=== PATIENT | male | born 1960 | race Caucasian/White ===

== ENCOUNTER 2020-05-28 07:14 | Day surgery (SDC) | payer OTHER ==
[2020-05-25 12:35] LABS: Absolute Lymphocytes (CBC) 1.9 K/uL (0.7-4.9); Basophils % 1.1 % (0-1.3); Hematocrit 45.8 % (39.6-49.0); Lymphocytes % 28.4 % (15.3-44.8); MPV 9.1 fL (7.6-11.3); RBC Red Blood Cell Count 5.17 M/uL (4.33-5.43)
--- NOTE | 2020-05-25 12:38 | RAD REPORT ---
EXAM DESCRIPTION: Kristyn Raman And Zoie (2 Views)05/25/2020 12:25 pm CLINICAL HISTORY: Cardiac catheterization COMPARISON: 2019 FINDINGS: The lungs appear clear of acute infiltrate. The heart is borderline enlarged IMPRESSION: No acute abnormalities displayed
[2020-05-25 13:02] LABS: Potassium 4.4 mmol/L (3.5-5.1)
[2020-05-25 13:15] LABS: Protime INR 0.96
[2020-05-28] MEDS ORDERED: LIDOCAINE 1% MPF 30 ML VIAL ONE (07:24)
[2020-05-28] MEDS ORDERED: HEPA 1000U/500MLS 2,000 UNIT/1,000 ML BAG IV ONE (07:24)
--- OUTSIDE RECORDS SUMMARY | 2020-05-28 07:24 | XMS REPORT | Clinical Summary ---
:1960 Author Organization [facility] Address [address] [place] [address] Care Team Providers Name Role Phone Thompson Chadwick Primary Care Provider Allergies No Known Allergies Medications Medication Sig Dispensed Refills Start Date End Date Status atorvastatin Take 40 mg by 0 Act murphy (LIPITOR) 40 MG mouth daily. tablet metoprolol Take 25 mg by 0 Activ e (LOPRESSOR) 25 MG mouth 2 (two) tablet times daily. amLODIPine Take 10 mg by 0 Activ e (NORVASC) 10 MG mouth daily. tablet pantoprazole Take 40 mg by 0 Act murphy (PROTONIX) 40 MG mouth 2 (two) tablet times daily. gabapentin Take 600 mg 0 Active (NEURONTIN) 600 MG by mouth 3 tablet (three) times daily. baclofen (LIORESAL) Take 20 mg by 0 Active 20 MG tablet mouth 3 (three) times daily. meloxicam (MOBIC) Take 15 mg by 0 10/13/19 20 Discontinued 15 MG tablet mouth daily. aspirin 325 MG Take 1 tablet 30 tablet 0 10/14/2019 11/13/2019 tablet (325 mg total) by mouth daily for 30 days. meloxicam (MOBIC) Take 1 tablet 30 tablet 0 10/13/2019 020 15 MG tablet (15 mg total) by mouth daily for 30 days. Active Problems Problem Noted Date Arthritis of right knee 10/12/2019 Encounters Date Type Specialty Care Team Description 10/14/2019 Telephone Anesthesiology Rosie Carney Follow-up ELIAN Cole 10/12/2019 Surgery General Surgery Morales, ARTHROPLASTY ,KNEE Ernst FREDERICK Jr., MD 10/12/2019 Anesthesia Event General Surgery José Manuel Tan MD 10/12/2019 - Hospital Encounter General Internal Carmen, 10/13/2019 Medicine Ernst Fish Jr., MD 10/12/2019 Travel 10/04/2019 Hospital Encounter Pre-Admission Testing after 05/28/2019 Social History Tobacco Use Types Packs/Day Years Used Date Former Smoker Smokeless Tobacco: Never Used Comments: quit at age 29 Alcohol Use Drinks/Week oz/Week Comments No Alcohol Habits Answer Date Recorded How often do you have a drink containing alcohol? Never 10/04/2019 How many drinks containing alcohol do you have on a typical Not asked day when you are drinking? How often do you have six or more drinks on one occasion? No t asked Sex Assigned at Date Recorded Not on file Job Start Date Occupation Industry Not on file Not on file Not on file Travel History Travel Start Travel End No recent travel history available. Last Filed Vital Signs Vital Sign Reading Time Taken Blood Pressure 125/67 10/13/2019 8:30 AM OUT OF TOWN COLLECTION CLERK Pulse 79 10/13/2019 8:51 AM OUT OF TOWN COLLECTION CLERK Temperature 37.1 C (98.8 F) 10/13/2019 8:30 AM OUT OF TOWN COLLECTION CLERK Respiratory Rate 18 10/13/2019 10:45 AM OUT OF TOWN COLLECTION CLERK Oxygen Saturation 96% 10/13/2019 10:45 AM OUT OF TOWN COLLECTION CLERK Inhaled Oxygen Concentration 21% 10/13/2019 8:51 AM OUT OF TOWN COLLECTION CLERK Weight 105.7 kg (233 lb 0.4 oz) 10/12/2019 8:1 6 AM OUT OF TOWN COLLECTION CLERK Height 175.3 cm (5' 9") 10/12/2019 8:16 AM OUT OF TOWN COLLECTION CLERK Body Mass Index 34.41 10/12/2019 8:16 AM OUT OF TOWN COLLECTION CLERK Plan of Treatment Not on file Implants Implanted Type Area Diabetes Nurse Device Shelf Model / Identifier Expiration Serial / Date Lot Jalil Bn Palacos R+G-40 G [id number] - [id number] IMPLANTS Right: HER AEUS:HERAEUS 02/01/2022 [id number] / Implanted: Qty: 2 on 10/12/2019 by Ernst Morales MD Knee KULZER / [id number] Tib Cemented Stem 5d Sz G R [id number] - [id number] TOTAL JOINT Right: HORACIO:HORACIO 05/04/2029 [id number] / Implanted: Qty: 1 on 10/12/2019 by Ernst Morales Jr., MD CONSTRUCT Knee US / [id number] Fem Cemented Sz 10 R [id number] - [id number] TOTAL JOINT Right: HORACIO:HORACIO 10/04/2028 [id number] / Implanted: Qty: 1 on 10/12/2019 by Ernst Morales Jr., MD CONSTRUCT Knee US / [id number] Ext Stem Psn Str Hyb 14x30 Mm [id number] - [id number] TOTAL JOINT Right: HORACIO:HORACIO 09/03/2029 [id number] / Implanted: Qty: 1 on 10/12/2019 by Ernst Morales Jr., MD CONSTRUCT Knee US / [id number] Persona [employer] 9flats Knee System Hig hly Crosslinked Polyethylene Articular Surface Fixed Bearing Constrained Posterior Stabilized Right 10mm Height Right: Horacio 01/02/2023 [id number] / Implanted: Qty: 1 on 10/12/2019 by Ernst Morales Jr., MD Knee / [id number] Procedures Procedure Name Priority Date/Time Associated Diagnosis Comme nts RHYTHM STRIP - SCAN 10/17/2019 8:32 AM OUT OF TOWN COLLECTION CLERK TRANSFUSION SERVICE 10/13/2019 6:03 REPORT - SCAN PM OUT OF TOWN COLLECTION CLERK POCT-GLUCOSE METER Routine 10/13/2019 7:11 Resul ts for this AM OUT OF TOWN COLLECTION CLERK procedure are i n the results section. HEMOGLOBIN AND Routine 10/13/2019 4:59 Results f or this HEMATOCRIT AM OUT OF TOWN COLLECTION CLERK procedure are i n the results section. BASIC METABOLIC Routine 10/13/2019 4:59 Results for this PANEL (7) AM OUT OF TOWN COLLECTION CLERK procedure are i n the results section. POCT-GLUCOSE METER Routine 10/12/2019 9:00 Resul ts for this PM OUT OF TOWN COLLECTION CLERK procedure are i n the results section. XR KNEE RIGHT 1 OR 2 STAT 10/12/2019 4:17 Res ults for this VIEWS PM OUT OF TOWN COLLECTION CLERK procedure are i n the results section. ARTHROPLASTY,KNEE 10/12/2019 2:45 Osteoarthritis of UNILATERAL PM OUT OF TOWN COLLECTION CLERK right knee, unspecified osteoarthritis type Case Notes 2 HRS Special Needs (HORACIO, SPINAL WITH PERIPHE RAL NERVE BLOCK) TISSUE EXAM AP Routine 10/12/2019 2:40 PM OUT OF TOWN COLLECTION CLERK Resu lts for this procedure are i n the results section . ANESTHESIA PERIPHERAL Routine 10/12/2019 1:26 PM OUT OF TOWN COLLECTION CLERK Results for this BLOCK procedure are i n the results section . ANESTHESIA SPINAL BLOCK Routine 10/12/2019 1:25 PM OUT OF TOWN COLLECTION CLERK Results for this procedure are i n the results section . ABORH, MANUAL Routine 10/12/2019 10:58 AM OUT OF TOWN COLLECTION CLERK Res ults for this procedure are i n the results section . TYPE AND SCREEN, Routine 10/12/2019 10:58 AM OUT OF TOWN COLLECTION CLERK Results for this AUTOMATED procedure are i n the results section . after 05/28/2019 Results RHYTHM STRIP - SCAN (10/17/2019 8:32 AM OUT OF TOWN COLLECTION CLERK) Narrative Performed At This result has an attachment that is no t available. TRANSFUSION SERVICE REPORT - SCAN (10/13/2019 6:03 PM OUT OF TOWN COLLECTION CLERK) Narrative Performed At This result has an attachment that is no t available. POC-Glucose meter (10/13/2019 7:11 AM OUT OF TOWN COLLECTION CLERK)Only the most recent of2 results within the time period is included. POC-Glucose Meter 145 (H)Comment: : TESTED 70 - 110 mg/dL [facility] [address] [facility] [id number]: Metalsmith Helper/Administrative Intern ID = [id number] for Jennifer Don Specimen Blood Performing Organization Address [facility]/Zipcode Phone Number [facility] [address] [place], [place] [phone] CENTER Hemoglobin and hematocrit (10/13/2019 4:59 AM OUT OF TOWN COLLECTION CLERK) Hemoglobin 12.1 (L) 13.7 - 17.5 GM/DL [facility] Hematocrit 36.7 (L) 40.1 - 51.0 % [facility] Specimen Blood Performing Organization Address City/[facility]/Zipcode Phone Number [facility] [address] [place] [address] Basic Metabolic Panel (10/13/2019 4:59 AM OUT OF TOWN COLLECTION CLERK) Sodium 138 136 - 145 meq/L [facility] Potassium 5.0Comment: Specimen slightly 3.5 - 5.1 meq/L CH I [facility] - hemolyzed DEE Chloride 105 98 - 107 meq/L [facility] CO2 24 22 - 29 meq/L [facility] BUN 15 7 - 21 mg/dL [facility] Creatinine 1.15Comment: Specimen 0.57 - 1.25 mg/dL [facility] - slightly hemolyzed DEE Glucose 119 (H) 70 - 105 mg/dL [facility] Calcium 8.5 8.4 - 10.2 mg/dL [facility] EGFR 65Comment: ESTIMATED GFR IS mL/min/1.73 sq m [facility] - NOT ACCURATE CREATININE [facility] CLEARANCE IN PREDICTING GLOMERULAR FILTRATION RATE. ESTIMATED GFR IS NOT APPLICABLE FOR DIALYSIS PATIENTS. Specimen Blood Performing Organization Address City/State/Zipcode Phone Number [facility] [address] [place] [address] XR knee 1 or 2 views right (10/12/2019 4:17 PM OUT OF TOWN COLLECTION CLERK) Specimen Narrative Performed At FINAL REPORT [facility] COMPARISON: None. FINDINGS: 2 views of the right knee are submitted. Patient is presumably status post recent right knee replacement. There is anatomic alignment of the surgical prost hesis. There is postoperative gas in the surrounding soft tissues . Signed: Satya Huff MD Report Verified Date/Time:10/12/2019 16:44:57 Reading Location: [facility] Room Procedure Note Interface, External Ris In - 10/12/2019 4:47 PM OUT OF TOWN COLLECTION CLERK FINAL REPORT COMPARISON: None. FINDINGS: 2 views of the right knee are submitted. Patient is presumably status post recent right knee replacement. There is anatomic alignment of the surgical prost hesis. There is postoperative gas in the surrounding soft tissues . Signed: Satya Huff MD Report Verified Date/Time: 10/12/2019 1 6:44:57 Reading Location: [facility] Room Performing Organization Address City/[facility]/Zipcode Phone Number GE RIS Tissue Exam (10/12/2019 2:40 PM OUT OF TOWN COLLECTION CLERK) Case Report Surgical Pathology Report Case: [id number] [facility] Authorizing Provider:Ernst Mariee Collected: 10/12/2019 1440 [facility] Abe Cuellar MD Ordering Location: [facility] ORReceived:10/13/2019 0810 Perioperative Services Pathologist: Sabi John MD Specimen:Condyle,Rig ht Knee DIAGNOSIS CONDYLES, RIGHT KNEE, ARTHROPLASTY: [facility] - DEGENERATIVE CHANGES CONSISTENT WITH OSTEOA RTHRITIS [facility] - SYNOVIUM WITH REACTIVE CHANGES Signing Pathologist Direct Phone Line: CPT Code(s) 22428, 36448 [facility] ER CLINICAL HISTORY Preop diagnosis: [facility] osteoarthritis or right [facility] knee, unspecified osteoarthritis type SPECIMEN SOURCE Condyle right knee [facility] DESCRIPTION Received in formalin labeled with the patient's name, accession number and "condyle, right knee" are multiple jones-yellow bone and soft tissue fragments that range from 3.0 to 7.8 cm in greatest dimensi [facility] on. The articular surface is smooth to finely granular, focally erythematous and displays multiple peripheral osteophytes that measure up to 2.0 cm in greatest dimension. The cut surface is jones-yellow, [facility] trabeculated and firm with c ortical bone measuring up to 0.2 cm thick. Ui Ux Engineer sections are submitted as A1-A3 following decalcification. PA/pl MICROSCOPIC DESCRIPTION Performed. [facility] ER Specimen Tissue - Condyle,Right Knee Performing Organization Address City/[facility]/Zipcode Phone Number [facility] [address] [place] [address] CENTER ANESTHESIA PERIPHERAL BLOCK (10/12/2019 1:26 PM OUT OF TOWN COLLECTION CLERK) Narrative Performed At Patricia Ortiz MD 0201:27 PM Peripheral Block Patient location during procedure: pre-p rocedure Start time: 10/12/2019 1:19 PM End time: 10/12/2019 1:23 PM Procedure Indication: procedure for pain, at surgeon's request and post-op pain management Preanesthetic Checklist Completed: patient identified, pre-op ev aluation, timeout performed, IV checked, risks and benefits discussed, m onitors and equipment checked, anesthesia consent given, prep site dry prior to draping and maximum sterile barriers were used: cap, mask, sterile gown, s terile gloves, and large sterile sheet Staffing Anesthesiologist: Wil Cota MD Other anesthesia staff: Patricia Ortiz MD Prep Prep: chlorhexidine gluconate and isopro pyl alcohol Procedures: sterile gloves, surgical mask, surgical kebede t, sterile technique and prep and sterile drape applied Peripheral Nerve Block Patient position: supine Patient monitoring: EKG, HR, BP and SpO2 Laterality: right Block type: adductor canal Injection technique: catheter ultrasound guided - in plane, prescan was completed pr ior to procedure and needle tip was visualized throughout the entire procedure ultrasound image saved Block Dose: ropivicaine and catheter Infiltration strength: 0.5 % Dose: 30 mL Needle Needle type: over the needle catheter Needle gauge: 18 G Needle length: 75. Needle Localization:US guided Hydrodissection? yesCatheter tunneled Dressing: Occlusive dressing applied in sterile fashion and Dermabond applied at the catheter insertion site Assessment Injection assessment: incremental inject ion and negative aspiration for heme LOC: Sedated with meaningful contact supplemental oxygen used.no evidence of intravascular injection and no heart rate changeno paresthesia patient had no immediate complications and patient ananda erated the procedure well Additional Notes Dr. Cota present throughout procedure Procedure Note Patricia Ortiz MD - 10/12/2019 1:26 PM OUT OF TOWN COLLECTION CLERK Peripheral Block Patient location during procedure: pre-p rocedure Start time: 10/12/2019 1:19 PM End time: 10/12/2019 1:23 PM Procedure Indication: procedure for pain , at surgeon's request and post-op pain management Preanesthetic Checklist Completed: patient identified, pre-op ev aluation, timeout performed, IV checked, risks and benefits discussed, monitors and equipment checked, anesthesia consent given, prep site dry prior to draping and maximum sterile barriers were used: cap, mask, s terile gown, sterile gloves, and large sterile sheet Staffing Anesthesiologist: Wil Cota MD Other anesthesia staff: Patricia Ortiz MD Prep Prep: chlorhexidine gluconate and isopro pyl alcohol Procedures: sterile gloves, surgical mas k, surgical hat, sterile technique and prep and sterile drape applied Peripheral Nerve Block Patient position: supine Patient monitoring: EKG, HR, BP and SpO2 Laterality: right Block type: adductor canal Injection technique: catheter ultrasound guided - in plane, prescan wa s completed prior to procedure and needle tip was visualized throughout the entire procedure ultrasound image saved Block Dose: ropivicaine and catheter Infiltration strength: 0.5 % Dose: 30 mL Needle Needle type: over the needle catheter Needle gauge: 18 G Needle length: 75. Needle Localization: US guided Hydrodissection? yesCatheter tunneled Dressing: Occlusive dressing applied in sterile fashion and Dermabond applied at the catheter insertion site Assessment Injection assessment: incremental inject ion and negative aspiration for heme LOC: Sedated with meaningful contact supplemental oxygen used.no evidence of intravascular injection and no heart rate changeno paresthesia patient had no immediate complications a nd patient tolerated the procedure well Additional Notes Dr. Cota present throughout procedur e ANESTHESIA SPINAL BLOCK (10/12/2019 1:25 PM OUT OF TOWN COLLECTION CLERK) Narrative Performed At Patricia Ortiz MD 0201:27 PM Spinal Block Patient location during procedure: pre-p rocedure Start time: 10/12/2019 1:10 PM End time: 10/12/2019 1:17 PM Staffing Anesthesiologist: Wil Cota MD Other anesthesia staff: Patricia Ortiz MD Preanesthetic Checklist Completed: patient identified, pre-op ev aluation, timeout performed, IV checked, risks and benefits discussed, m onitors and equipment checked, anesthesia consent given, prep site dry prior to draping and maximum sterile barriers were used: cap, mask, sterile gown, s terile gloves, and large sterile sheet Prep Prep: Betadine Procedures: sterile gloves, surgical mask, surgical kebede t, sterile technique and prep and sterile drape applied Spinal Block Patient position: sitting Patient monitoring: HR, BP, SpO2 and EKG Approach: midline Pictures are available Level:L2-3 Injection technique: single-shot landmark technique and landmark techniqu e Needle Needle type: pencil-tip Needle gauge: 25 G Needle Length: 9 cm Used introducer Assessment Events: barbotage patient tolerated the procedure well and patient had no immediate complications Additional Notes Dr. Cota present throughout procedur e Procedure Note Patricia Ortiz MD - 10/12/2019 1:25 PM OUT OF TOWN COLLECTION CLERK Spinal Block Patient location during procedure: pre-p rocedure Start time: 10/12/2019 1:10 PM End time: 10/12/2019 1:17 PM Staffing Anesthesiologist: Wil Cota MD Other anesthesia staff: Patricia Ortiz MD Preanesthetic Checklist Completed: patient identified, pre-op ev aluation, timeout performed, IV checked, risks and benefits discussed, monitors and equipment checked, anesthesia consent given, prep site dry prior to draping and maximum sterile barriers were used: cap, mask, s terile gown, sterile gloves, and large sterile sheet Prep Prep: Betadine Procedures: sterile gloves, surgical mas k, surgical hat, sterile technique and prep and sterile drape applied Spinal Block Patient position: sitting Patient monitoring: HR, BP, SpO2 and EKG Approach: midline Pictures are available Level: L2-3 Injection technique: single-shot landmark technique and landmark techniqu e Needle Needle type: pencil-tip Needle gauge: 25 G Needle Length: 9 cm Used introducer Assessment Events: barbotage patient tolerated the procedure well and patient had no immediate complications Additional Notes Dr. Cota present throughout procedur e Type and screen, automated (10/12/2019 10:58 AM OUT OF TOWN COLLECTION CLERK) Ab Scrn NEGATIVEComment: done on echo [facility] I [facility] Specimen Blood Performing Organization Address City/[facility] Phone Number [address] [address] ABORH, manual (10/12/2019 10:58 AM OUT OF TOWN COLLECTION CLERK) ABO Grouping O [facility] Rh Factor POS [facility] Specimen Blood Performing Organization Address City/[facility]/Zipcode Phone Number [address] [place] [address] after 05/28/2019 Insurance Payer Benefit Plan / Group Subscriber ID Type Phone A ddress [employer] xxxxxxxxx Maps Contracted Advance Directives For more information, please contact:[facility] [place], [place] [phone] Code Status Date Activated Date Inactivated Comments Full Code 10/12/2019 4:26 PM 10/13/2019 2:23 PM This code status was determined by: Patient Full Code 10/12/2019 10:27 AM 10/12/2019 4:26 PM This code status was determined by: Patient
[2020-05-28] MEDS ORDERED: NA CHLORIDE 0.9% 500 ML ONE ×2 (07:25→09:40)
--- OUTSIDE RECORDS SUMMARY | 2020-05-28 07:25 | XMS REPORT | Continuity of Care Document ---
:1960 Author Organization [facility] t Address [address] [place] [address] Care Team Providers Name Role Phone Thompson Chadwick Primary Care Physician Carmen ARIAS Attending Clinician Rommel PLUMMER, Douglas Attending Clinician LIS GOYAL Attending Clinician Unavailable Carmen ARIAS, Lis Attending Clinician Antonino Tan MD Attending Clinician LIS GOYAL Admitting Clinician Unavailable Payers Payer Name Policy Type Policy Number Effective Expiration Source Date Date CIGNA xxxxxxxxx [facility] ALL[facility]xMaps Center Contracted Problems Condition Condition Condition Status Onset Resolution Last Treating Co mments Source Name Details Category Date Date Treatment Clinician Date Arthritis Arthritis Disease Active [facility] right [facility] - knee knee 00:00: Medical 00 Center Allergies, Adverse Reactions, Alerts This patient has no known allergies or adverse reactions. Social History Social Habit Start Date Stop Date Quantity Comments Source History [facility] St[facility] Dr[facility] Medica l Center [facility] Binge Medical Christopher ter Sex Assigned At [facility] History SDOH 2019-10-04 2019-10-[address] [facility] Alcohol Frequency 00:00:00 00:00:00 [facility] Tobacco Comment 2019-10-04 2019-10-04 [facility] age 29 [facility] Smoking Status Start Date Stop Date Source Former smoker 2019-10-13 00:00:00 2019-10-13 00:00:[address] [facility] Medications Ordered Filled Start Stop Current Ordering Indication Dosage Frequency Signature Comments Components Source Medication Medication Date Date Medication? Clinician (SIG) Name Name aspirin 325 No 325mg QD Take [address] [facility] tablet 10-14 tablet [facility] - 00:00: 23:59 (325 mg Medical 00 :00 total) by Center mouth daily for 30 days. meloxicam No 15mg QD Take [address] (MOBIC) 15 10-13 by mouth Luke s - MG tablet 12:04: 00:00 daily. Medic al 18 :00 [place] meloxicam No 15mg QD Take 1 [facility] (MOBIC) 15 10-13 tablet (15 Sunitha kes - MG tablet 00:00: 23:59 mg total) Me dical 00 :00 by mouth Center daily for 30 days. amLODIPine 2018-10 Yes 10mg QD Take [address] (NORVASC) 2-31 by mouth [facility] - 10 MG 12:49: daily. Medical tablet 14 [place] pantoprazol 2018-10 Yes 40mg Q.5D Take [address] e 2-31 by mouth 2 [facility] - (PROTONIX) 12:49: (two) Medica l 40 MG 14 times Center tablet daily. gabapentin 2018-10 Yes 600mg Q.[id number] Take [address] (NEURONTIN) 2-31 [id number] mg by L ukes - 600 MG 12:49: 3D mouth 3 Medical tablet 14 (three) Center times daily. baclofen 2018-10 Yes 20mg Q.[id number] Take [address] (LIORESAL) 2-31 [id number] by mouth 3 [facility] - 20 MG 12:49: 3D (three) Medical tablet 14 times Center daily. atorvastati 2018-10 Yes 40mg QD Take [address] [facility] (LIPITOR) 2-31 by mouth Luke s - 40 MG 12:49: daily. Medical tablet 13 Center metoprolol 2018-10 Yes 25mg Q.5D Take [address] (LOPRESSOR) 2-31 by mouth 2 Sunitha kes - 25 MG 12:49: (two) Medical tablet 13 times Center daily. Vital Signs Vital Name Observation Time Observation Value Comments Source Respiratory rate 2019-10-13 10:45:00 18 /min [facility] Oxygen saturation in 2019-10-13 10:45:00 96 /min [facility] Arterial blood by Medical Ce nter Pulse oximetry Heart rate 2019-10-13 08:51:00 79 /min [facility] Systolic blood 2019-10-13 08:30:00 125 mm[Hg] [facility] Diastolic blood 2019-10-13 08:30:00 67 mm[Hg] [facility] Body temperature 2019-10-13 08:30:00 37.11 Ninoska [facility] Body height 2019-10-12 08:16:00 175.3 cm [facility] Body weight Measured 2019-10-12 08:16:00 105.7 kg [facility] BMI 2019-10-12 08:16:00 34.41 kg/m2 [facility] Procedures Procedure Date / Time Performed Performing Clinician [facility] e RHYTHM STRIP - SCAN 2019-10-17 08:32:12 Provider, Default [facility] TRANSFUSION SERVICE 2019-10-13 18:03:35 Provider, Default [facility] REPORT SCAN [facility] POCT-GLUCOSE METER 2019-10-13 07:11:00 Ernst Goyal [facility] BASIC METABOLIC PANEL 2019-10-13 04:59:00 KrauseDottie schmidt [facility] (7) [facility] HEMOGLOBIN AND 2019-10-13 04:59:00 Dottie Krause [facility] HEMATOCRIT [facility] POCT-GLUCOSE METER 2019-10-12 21:00:00 Ernst Goyal [facility] XR KNEE RIGHT 1 OR 2 2019-10-12 16:17:[address] [facility] ARTHROPLASTY,KNEE 2019-10-12 14:45:00 Ernst Goyal [facility] TISSUE EXAM 2019-10-12 14:40:00 Ernst Goyal [facility] ANESTHESIA PERIPHERAL 2019-10-12 13:26:[address] [facility] ANESTHESIA SPINAL BLOCK 2019-10-12 13:25:43 Patricia Ortiz [facility] ABORH, MANUAL 2019-10-12 10:58:00 Keith Mcbride [facility] Encounters Start End Encounter Admission Attending Care Care Encounter Source Date/Time Date/Time Type Type Clinicians Facility Department ID 2019-12-05 2019-12-05 Office KARON Goyal [id number] 12:08:28 12:18:28 Visit Ernst AMBULATOR 350.1.13.21 Y [id number] [id number] 600 2019-10-27 2019-10-27 Office KARON Goyal [id number] 10:26:14 11:26:31 Visit Ernst AMBULATOR 350.1.13.21 Y 0.2.7.2.686 [id number] 600 2019-07-04 2019-07-04 Office KARON Goyal [id number] 12:43:07 14:30:53 Visit Ernst AMBULATOR 350.1.13.21 Y 0.2.7.2.686 [id number] Results Test Description Test Time Test Comments Results Result Comments Source Tissue Exam 2019-10-19 13:46:00 Test Item Value Reference Range Interpretation Comme nts Case Report (test code = 104) Surgical Pathology Report Case: [id number] Authorizing Provider: Ernst Goyal Collected: 10/12/2019 1440 Lis Cuellar MD Ordering Location: [facility] OR Received: 10/13/2019 08 Perioperative Services Pathologist: Sabi John MD Specimen: Condyle,Right Knee DIAGNOSIS (test code = 3220) c7exjOXrRDGfo8thNBZyvLLoIyWcNtRwEdCyCf pc xIDyOIoglbSjVFbdm9WzI6JbXdAlQTrmmwUnJRBl DvygdhjgNZDhBSD3gpSiFDQhAHweSGGbKZigKc3e uHJmpPpwEyKgCLZix3ncbgDVlefygZe5aDvnX81y c0R0PpbyT8qzPSKwNLYgK2CxEN9cVJWrQvk1MML3 RJD3ZJYcGAHkA9ReDW0vQSVngMNtZAy2t1cnlAli MWZwOQU7e5zoHZtfkfLsOY8unq8spWo1x8lmysZj ERJaRTUfyLWLSFBmG5YdcRkzFe1wpYy8eJrjHgbv SEE4Aau5QB5dqp12qss4rZwnXGAitqogUfA5OVwb STSzrgeeXHw1HZqsILJcbOrgEZxcVFLvyzktYWtk WKLlpJjsANslVURtYaydAAsgWKLcIEQ0BTbfg014 TVZ2PPxzt5qeo0zgsPApFiz8HZCvSvAdRqtiUKah p0Vxp8ouYHUkqk5xOYJ3tBQlnAjdu5T0pOXrGUOp rPTnpmSiOXLeVhX9SMevPA4qah66MAMwUKT1hg0a jOMssAiwljNccARoDUmmI5HhMIJpt781OMQfM8Dp LCFel0I9zlEgVwDpDYRcgGK0qcI2AVLkZHt4oFPw kiG6lnUxlAPmJ4fkxS76RnOrfOKcA9RneP23SeRq zJWnY7RplP89VwNcbOFcN6ClpY29PvMpbRWaJVFq dRWzWa5mpASfzLVss0WhzRPnSHyhQ01hl417KBFk pjSeH4pyrWQufduguNOykutkKIwhzpN3NUGyEOMw YWluXGYwXGZzMjBcbGFuZzEwMzNcaGljaFxmMFxk YkDeMAHdUXzbG0rzVvYcLnXbZVOTX54DYTfZNpud TmlTJALhY23PAZvgWDVCZZWQGVmUE8BDBywhLOVe XRKhLDMJQUuPAsIIYGXEXoVbG7gVLdfKHsOTR92B LJUYPK1YDXwMMXquJ1HEYR5FCmZXTcuCDISggQGn FGNgRV2hW4hHT5PDDH2uE6bFGVRFUXFSPNhBSKRN IUVFY1SWZAOtvsnkYJL4x3qrjAHePTAvrAPqTSDj LYudilHjCXSzQtavznnyAZBlEUJ1kxWnYZLePRuk QHEiGVkdXe4vvCQcnQqvBkNkCHQyn7fidbNYnhcl dZm1q3qbUIWzZjX1jLVeYBqlL0nzqtOenOJpOSWh QOi2uV50LLYibF6ukYEzOGhnvfYlFvV0JVpySVPn QvY1NBIszCZpAIUmP8tnUJToAZroOTMjGFscgTPn VWG1qYysp2G5zDGsqKYadWjcZnLgRzKyBdSEl8Ua WVk2yQgnX9ObAQIyBgL3cPOpSRTkUJecAMJyYTLu cdL7cS49DZfrvmG7kEDdc2Pfi97nm483nE6ufKYg HGM4LHVyFBPmqHMaLQUnLTV3CFGilZOvB0neDIQa ZC1hlbphMTxxUGhtBFKsfWW2VXCddQGqI7EhCTRq SEokBRYyfan2IiSdYl7vcGVmzKinMPeql1iet9cl pPByCkr6UPTlTqEoKfuhSDnsf2Njr1pxBRTsvd7d RAF5zOIpySkoc8U0mBBzLDQkgLKfHSOgWL6eaGCk JSPayF7grrkmXXTgUjHmvhahCAQjaOtpzuZuOz4x lErwQHZ5JYevQ3ctzG3iVsD4UErnL5zncX9eDPb3 AZorRKIphMX0mmX0CKRlxBLbE5NwiJ8jPHTkTX3k twd2e7dhMRC9VTblCCKxMlJ7lzT8JBXkmLQwOYFz hJleINavj171ULE4PbIhTCXoc0UlD6ZfiIutY68f pXjxF97oKWMfuQjisQ9kzXlvbV6wCsMoDzOzQQpg yBzyLA8jSKOnE5hamVLoXWPpOKMvM7nmJqIrlH0f kSlqHQbbtqHoIWJlPhe6AWAgqVDfAIXaQhz7SBHn DSDaQ13aybaxPIB2zF5jd2eod9OdHXypSSN4CURv e32vBEftlgS8IGdpDy1cOYRkJYL2HIiqQBK1uE== CPT Code(s) (test code = 3357) j6bqiTLcVQWkjDXbRaMnXBNaKTFfa4mmCPXp bGFu FaWrQaLgKbSqQmyryBCxYFUkEiGdy8cih405uXAv t6jgIIUdXuP2yCZzWYPqfCMzZ973v6ixa0nhcfDa kKG3QMOpKEB5GFnateXjeqJ9VAnivKXdZeY9VTci eqPgJYphuvMqtwNuQnf3LSBoQ000LRP0xHfyp2gw NAO7IEXnMOPvKdBkPm9mtCKtY246LTLyIZMTFTGc yFa6VUZmrpCkuyCidHFOh661Z486v5pqVLHracKm sNfAqhscp3ruP728LWEmrNArfoBcBvIsQHNkaXLp dIH4XLMyTR9oukhpMhKnQT6mrlmvXrCfDC4vqyt3 LkApWU1rvaxeXeCvAXszMEMvbvmlCLXng5Ukwdwh KD7lV4Qpp6I5iZ7ruWBcPXCazSZqQwYtVBAdxc1n aADeLFpgj3RrERV1eaN0eKBwdELkXDBhWB74Qjtc w3RcXmyoHUH3QOJldzUip7Bnn4krWeNnboKpE3hn X8BsIJTnKTSwMXYnTwOfhrOla4Kfa6FraIAsxPu2 l0ssHIUyAWRexMywu1ddFIA1CKEsD2Q8kSIca0ps NSpaOCUptUL2bzurCZcaVZOhydK3iubzBInySPFg wUE3ihmxDJhwNILgYsD4wrdgTBpqJAYhUAT2BYzj c242NTW7KFanSvaxDWvqLOLybvAtqeZifSxlTCYx PAXgLCaxHYRzLXkkBARlCLUbTbIqdDoalUmmsT4i YhVoJaTsAPozWX1kCDHwM6pnbNYlDPGbMGMsN7yv MkNxcP6uwPgdJGyraiNzFJt7FfI1DCB2HPTuWGzg YXJ9 CLINICAL HISTORY (test code = 3356) m9aifEIpUKLntDEyZgDcIHJxFGOum0z cZGVmbGFu CeCxEcJqHiOvCsjpdSIlNUInBkCuk4imk915kECg v5uzOGFwCtH2zLZuTIDkgBTlX106XORjYPvgp4dw n5OzFNLuaJArw4O1FYJLfocjaUs9qAxqZ16us2O9 PkztY1djFMGyZHpcZAIgSFklhDRmDSL4LIKiGQX7 ZAlofiLielQ1BOhhdEAxUnD2NZf6o8xixQaaHRIk FRR9d4swQVeswuSqDA1nzw1fwYx0s3devkKxHPHu ITVzlNRSAYPlT2QzzRjmYx6ciOz3oMyrFqjgZOY0 Wdq0WZ1wlh45iea3tKevLXWzxrvoUtG9IRkoPZLx wghtDHu8ZNrkCGYvxIiwEEpaVOLmjlnfLKwqXSMe fEhtHWogZZRvGmwaCRtvNHNkXZJ3APwoj296SQZ0 HKbsc7jkm6vpsLQzCbu9HHAiKdYeXmexMCnrf3Kf c7lhGCZeud2zKJG5vDNgnQaks1N7uTTfHZZldRTs adDlPIXeOrP5YLcxEH2wjl98LQKbZDQ0ho0kzDNw yUijxlTqoFXfUGrfJ8SxKXXde409WWZxG1WjEGKa s9R0cbJwIbOhAQBlfVE9mkH3AWWsDPk8aPMgopW6 hoMszOFlE0dnrG47KhVxhDQuH8KxkN81OcPwuKNz M6IznH25OiUfcGNuT5ArzS78DoKusDPhCFZmfCNb Jy0ijBPeoPOue3PsaVVrOBnrF72xo963LUZfldAo S1dnjMPdauxktFYerlweNLarkqCaJUMfEUYiGMrf LYIiGPZaAfYdxBahtI9zRuHfJsZnBBBTlzPnqGHn cHHlfu5bjSF0GGPrdIsmnE2tRrRhEkAzIKUpq6Ex y0AtgWjoiGUmo1rfwYCylevhSNvqfpAtTVUhdiMn rGjzyZCqtxUnMXY1jtQmSWJrSajsYCSrjKoyoJ1h YmPpCiXgDTCmw2Tdi9KsaBbqdLKee8lnkTPtfjyu XHvvztCnPIY3bJFnFKBdfm1= SPECIMEN SOURCE (test code = 3377) c2axsZIlKJOvrYWxNjYqLTCqGXXsy4qk ZGVmbGFu TqIrSzOhUrLxXkbgoWWmKQKbRpAqx5thn778iQDe o5coITKzIxL2xIQsTXOpuYApV017h4hxo5ccmeMl bVH7EHNbFZX0VHqncpBsugT2WWaxcBNwGbT2ZNab ybOoPOiamlBkmrQhLne7CDEbL569QIU4vUdge0ds LMU6RMGcXWBgVzTqPz4rlJQtW603TIRdVVVOXOIr oUi7YBNnaqBwydEpjESIf402B535s8hdIUZjqfXd oCyRcldrc2usH751XOYpaHEpceKeWcOpURQowTHq nIO7BOYjFD9vsmsoCsMfXY8skxucPlSeHI5ytbf3 QnSqLT0bdkvsSaRdHEtdXPRrxwzdNYSzy4Nfajku RS5uQ3Hrm7L1aK9lxPHmYDXpdLJsDcKgKOXvaw7d gCXbCFksh7QgWEL7jmU2ePPcwFLwAPUnLM93Kmqu t9KtLnimRVO5QOHexbUwb1Dwd9fdAnHxcjLuV5mi X7UcLDLlVGWwOHXdTeSrmfDxt3Dzh9RwnACyqYl6 j1etSINsBGBpjBusv3avMHM6CWKxG3A9jBZgy3at COzhTJEyrST9lsykQBytXYKchiX4baqsMRzbQKKr sLI8vqhbTDpiMPRsHeX5mtbgLRvhSUBnTCD1JNgc y462GWH7GCquZhxwWWahBQZpqkEecfIwoVehEYGi RDBbRDxgBZCjLYcbAEOjUZMwDpOgoGgdiChytY8t UrLmBzHaLPbdAM9tYIXrJ9xncDSfBRVeZIPsJ6zw NtNovT0ezNalBAfvdzYdXPVmzoX3jHGwmaamaADj t65lHTmlVLL8 GROSS DESCRIPTION (test code = 3366) n5kbxJLrTWMizPOkTlCqWUXjNTJob7 lcZGVmbGFu [file] cyBhbmQgZGlzcGxheXMgbXVsdGlwbGUgcGVyaXBo VZUusBSrn2Mlm6UplHVysyO1mWJ2HJ1gOCA9bwCw rAVcqX6oGs1mTUUxFLcqSUfaHFP2LFX0MRMvsHZw i4kaqz8rSYvjRNE7xEDpnYUkMVZjDQnlFBLemo86 XEjct4brYFDpRVZuZ7EwEUFxUOZpexAqEtycjYA6 nHExGMEklkKhA2HgLMYfggCytQUcn3OwwF6sRTUv DAFtWHDtAdEbvGY4zKkxme4rRuDxjySgTF39RDPx enNvq9BomLlpinOmCRByFQZ7Yt0qrFIzQXWzzcDY ED6XYxMuo1biw0eamvqtOMBoLTjmuWIdZ0G3yG7i LiAgUEEvcGxccGFyICBccGFyfQ== MICROSCOPIC DESCRIPTION (test code = s2bqySMpADZnpMQdVjPsMRSlYFPcj5 [place] [address]) LzSyClKgQyDiNyajjEHrBIEwMsOuj8tsw533vFLp m9biHPEzCeZ9lPHzMGChxJSpK689t7hhc8bpioXh wKW4UCLdCJA2SXqmcxRjgtV2YFtefGMsAfZ8EJgo sxBtPOlzsoLuwpJzAyl1YTSkB952PJV3hYeha2xt FGV6WGZjPQHmKyEgQp1cwPYjS106AQOmCWBBOSJg lYr0EDHgqtGntwTotMLEs853U394w0evHEAzcdSj mAsEanawr7erP322AIHgyBZetqElWvXhEWMrmSIc jVP1ILKbAF3bycddIgGuAU0jdqajJzQuYH6qsal7 AtNuVO2wjspvVwXsSQqoSZTszeiaQMDyl6Zapdzq OU3lM7Ark7R9uY7zrUUnOAQduTMzAhVuTEMrzo7w fKKeFGdld4AmZMR5mxN4kVMbbOIeEWNaQR56Fwxf q2NwWmhqXYF0VAZkfpNuz5Ulj6nqIgUsfwFjJ6aa M2LmNQPhADMeCWHgLjBtrnYur0Zaj6RvbCDryIr6 n6yzKQJySJVbaLugz5fhSYO3OZJcZ8O8qZPkt0io QQbtLUEqxYN3wjnrYMzlXIKvogM9wrhoKQahVVNe eLJ2fadaEDudPXOaPtM7crhbSPlnGVCxWWT6LTzc i469EBI7VZzaTnwrNMjdSZNfavVfmwRisXelVORo UGEbDJkhBDPnATufSYFxTWBvTbPqmFmjrYjuhI8h NuMaHlEhIZcjVQ8vIDYkT4kmsUObOXTqBWBaF5su XjLxrK0oeFmjIDczqiGfVWYczlXyzz2wYO2deREc fQ== [facility] [id number] 13:46:00Surgical Pathology Report Case: [id number] Authorizing Provider: Ernst Goyal Collected: 10/12/2019 1440 Lis Cuellar MD OrderingLocation: [facility] OR Received: 10/13/2019 0810 Perioperative Services Pathologist: Sabi John MD Specimen: Condy le,Right Knee CONDYLES, RIGHT KNEE, ARTHROPLASTY: - DEGENERATIVE CHANGES CONSISTENT WITH OSTEOARTHRITIS - SYNOVIUM WITH REACTIVE CHANGES Signing Pathologist Direct Phone Line: [phone] signed by Sabi John MD on 10/19/2019 at 1:46 [id number], [id number] diagnosis: osteoarthritis or right knee, unspecified osteoarthritis typeCondyle right kneeReceived in formalin labeled with the patient's name, accession number and "condyle, right knee" are multiple jones-yellow bone and soft tissue fragments that range from3.0 to 7.8 cm in greatest dimension. The articular surface is smooth to finely granular, focally erythematous and displays multiple peripheral osteophytes that measure up to 2.0 cm in greatest dimension. The cut surface is jones-yellow, trabeculated and firm with cortical bone measuring up to 0.2 cm thick. Paper Folder sections are submitted as A1-A3 following decalcification. PA/pl Performed.POC-Glucose meter 2019-10-13 07:23:00 Test Item Value Reference Range Interpretation Comments POC-Glucose Meter (test 145 mg/dL 70-110 H : TE STED AT [facility] code = 1538) [address] [facility] [address], [facility] [address]: Tree Puller/Techni norah ID = [id number] for Юлия Don Lab Interpretation (test Abnormal code = 14438-3) [facility] [id number] 07:23:00 Test Item Value Reference Range Interpretation Comments POC-GLUCOSE METER 145 mg/dL 70-110 H : TESTED A T [facility] 7200 (BEAKER) (test code [facility], = 1538) [facility] 7703 0: Tree Puller/Techni norah ID = [id number] for Jennifer Woodruff Basic Metabolic [id number] 06:29:00 Test Item Value Reference Range Interpretation Comments Sodium (test code = 138 meq/L 971-630 3939-2) Potassium (test code = 5.0 meq/L 3.5-5.1 Speci men slightly 2823-3) hemolyzed Chloride (test code = 105 meq/L 98-107 2075-0) CO2 (test code = 24 meq/L 22-29 2028-9) BUN (test code = 15 mg/dL 7-21 3094-0) Creatinine (test code = 1.15 mg/dL 0.57-1.25 Spec imen slightly 2160-0) hemolyzed Glucose (test code = 119 mg/dL 70-105 H 2345-7) Calcium (test code = 8.5 mg/dL 8.4-10.2 75486-9) EGFR (test code = 65 mL/min/1.73 [place] [address]-7) NOT ACCURATE CREATININE CLEARANCE IN PREDICTING GLOMERULAR FILTRATION RATE . ESTIMATED GFR I S NOT APPLICABLE FOR DIALYSIS PATIEN TS. Lab Interpretation Abnormal (test code = 59890-4) [facility]OLIC [id number] 06:29:00 Test Item Value Reference Range Interpretation Comments SODIUM (BEAKER) 138 meq/L 136-145 (test code = 381) POTASSIUM (BEAKER) 5.0 meq/L 3.5-5.1 Specimen slightly (test code = 379) hemolyzed CHLORIDE (BEAKER) 105 meq/L 98-107 (test code = 382) CO2 (BEAKER) (test 24 meq/L 22-29 code = 355) BLOOD UREA NITROGEN 15 mg/dL 7-21 (BEAKER) (test code = 354) CREATININE (BEAKER) 1.15 mg/dL 0.57-1.25 Specimen slightly (test code = 358) hemolyzed GLUCOSE RANDOM 119 mg/dL 70-105 H (BEAKER) (test code = 652) CALCIUM (BEAKER) 8.5 mg/dL 8.4-10.2 (test code = 697) EGFR (BEAKER) (test 65 mL/min/1.73 ESTIMA [place] GFR IS code = 1092) sq m NOT ACCURATE CREATININE CLEARANCE IN PREDICTING GLOMERULAR FILTRATION RATE . ESTIMATED GFR I S NOT APPLICABLE FOR DIALYSIS PATIEN TS. Hemoglobin and [id number] 06:16:00 Test Item Value Reference Range Interpretation Comments Hemoglobin (test code = 786-4) 12.1 13.7- 17.5 GM/DL L Hematocrit (test code = 4544-3) 36.7 % 40.1-51 L Lab Interpretation (test code = Abnormal 23636-6) [facility] HospitalHEMOGLOBIN AND [id number] 06:16:00 Test Item Value Reference Range Interpretation Comments HEMOGLOBIN (BEAKER) (test code = 12.1 GM/DL 13.7-17.5 L 410) HEMATOCRIT (BEAKER) (test code = 36.7 % 40.1-51.0 L 411) POCT-GLUCOSE [id number] 21:12:00 Test Item Value Reference Range Interpretation Comments POC-GLUCOSE METER 195 mg/dL 70-110 H : TESTED A T [facility] 7200 (BEAKER) (test code [address] A, = 1538) [facility] 770 0: Tree Puller/Techni norah ID = [id number] for BETTY PAVANEKINAANSHUL RAD, KNEE, 1 OR 2 VIEWS, [id number] 16:44:00Reason for exam:->s/p r tkaShould this be performed at the bedside?->YesFINAL REPORT COMPARISON: None. FINDINGS: 2 views of the right knee are submitted. Patient is presumably status post recent right knee replacement. There is anatomic alignment of the surgical prosthesis. There is postoperative gas in the surrounding soft tissues . Signed: Satya Mac MDReport Verified Date/Time: 10/12/2019 16:44:57 Reading Location: [facility] Radiology Reading Room XR knee 1 or 2 views [id number] 16:44:00Interface, External Ris In - 10/12/2019 4:47 PM CSTFINAL REPORT COMPARISON: None. FINDINGS: 2 views of the right knee are submitted. Patient is presumably status post recent right knee replacement. There is anatomic alignment of the surgical prosthesis. There is postoperative gas in the surrounding soft tissues . Signed: Satya Mac MDReport Verified Date/Time: 10/12/2019 16:44:57 Reading Location: [facility] Radiology Reading [facility] [id number] 14:23:00 Test Item Value Reference Range Interpretation Comments ABO Grouping (test code = 2588) O Rh Factor (test code = 2589) [facility]Type [facility], [id number] 14:17:00 Test Item Value Reference Range Interpretation Comments Ab Scrn (test code = 890-4) NEGATIVE done on echo [facility] HospitalANESTHES[facility] PERIPHERAL [id number] 13:26:38 Patricia Ortiz MD - 10/12/2019 1:26 PM CSTPeripheral BlockPatient location during procedure: pre-procedureStart time: 10/12/2019 1:19 PMEnd time: 10/12/2019 1:23 PM Procedure Indication: procedure for pain, at surgeon's request and post-op pain managementPreanesthetic ChecklistCompleted: patientidentified, pre-op evaluation, timeout performed, IV checked, risks and benefits discussed, monitorsand equipment checked, anesthesia consent given, prep site dry prior to draping and maximum sterile barriers were used: cap, mask, sterile gown, sterile gloves, and large sterile sheetStaffingAnesthesiologist: Wil Cota MDOther anesthesia staff: Patricia Ortiz MDPrepPrep: chlorhe xidine gluconate and isopropyl alcoholProcedures: sterile gloves, surgical mask, surgical hat, sterile technique and prep and sterile drape appliedPeripheral Nerve BlockPatient position: supinePatient monitoring: EKG, HR, BP and [id number]: rightBlock type: adductor canalInjection technique: cathet erultrasound guided - in plane, prescan was completed prior to procedure and needle tip was visualized throughout the entire procedureultrasound image savedBlock Dose: ropivicaine and catheterInfiltration strength: 0.5 %Dose: 30 mLNeedleNeedle type: over the needle catheterNeedle gauge: 18 GNeedle length: 75.Needle Localization: US guidedHydrodissection? yesCatheter tunneledDressing: Occlusive dressing applied in sterile fashion and Dermabond applied at the catheter insertion siteAssessmentInjection assessment: incremental injection and negative aspiration for heme LOC: Sedated with meaningful contactsupplemental oxygen used.no evidence of intravascular injection and no heart rate changeno paresthesiapatient had no immediate complications and patient tolerated the procedure wellAdditional NotesDrEmy Cota present throughout procedureCHI [facility] CenterANESTHESIA SPINAL [id number] 13:25:43HaddPatricia dawson MD - 10/12/2019 1:25 PM CSTSpinal BlockPatient location during procedure: pre-procedureStart time: 10/12/2019 1:10 PMEnd time: 10/12/2019 1:17 PMStaffingAnesthesiologist: Wil Cota MDOther anesthesia staff: Patricia Ortiz MDPreanesthetic ChecklistCompleted: patient identified, pre-op evaluation, timeout performed, IV checked, risks and benefits discussed, monitors and equipment checked, anesthesia consent given, prep site dry prior to draping and maximum sterile barriers were used: cap, mask, sterile gown, sterile gloves, and large sterile sheetPrepPrep: BetadineProcedures: sterile gloves, surgical mask, surgical hat, sterile technique and prep and sterile drape appliedSpinal BlockPatient position: sittingPatient monitoring: HR, BP, SpO2 and EKGApproach: midlinePictures are availableLevel: L2-3Injection technique: single-shotlandmark technique and landmark techniqueNeedleNeedle type: pencil-tip Needle gauge: 25 GNeedle Length: 9 cmUsed introducerAsses smentEvents: barbotagepatient tolerated the procedure well and patient had no immediate complicationsAdditional NotesDr. Cota present throughout procedure [facility]
[2020-05-28] MEDS ORDERED: MIDAZOLAM HCL 2 MG/2 ML INJ ONE ×4 (07:47→09:53)
[2020-05-28] MEDS ORDERED: HEPARIN 5000 UNIT/ML 1 ML VIAL ONE ×3 (07:47→09:28)
[2020-05-28] MEDS ORDERED: HEPARIN 10,000 UNIT/10 ML VIAL IV ONE (07:48)
[2020-05-28] MEDS ORDERED: ACETYLCYST 20% 4 ML VIAL IH ONE (07:48)
[2020-05-28] MEDS ORDERED: NICARDIPINE HCL 25 MG/10 ML IV ONE (07:48)
[2020-05-28] MEDS ORDERED: NA CHLORIDE 0.9% 100 ML IV ONE (07:48)
[2020-05-28] MEDS ORDERED: NITROGLYCERIN 100 MCG/ML SYR (for cath lab use only) IV ONE (07:48)
[2020-05-28] MEDS ORDERED: ATROPINE SULF 1 MG/10 ML SYR IV ONE (07:48)
[2020-05-28] MEDS ORDERED: FENTANYL CITR 100 MCG/2 ML ONE ×4 (07:48→09:53)
[2020-05-28] MEDS ORDERED: NITROGLYCERIN/D5W 25 MG/250 ML BTL IV ONE (07:49)
[2020-05-28 08:52] LABS: Arterial Blood Carboxyhemoglob 0.9 % (0-1.5); Blood Gas Oxyhemoglobin 95.8 % (94-97); Blood O2 Saturation 97.7 % (92-98.5)
[2020-05-28] MEDS ORDERED: HEPA 1000U/500MLS 1,000 UNIT/500 ML BAG IV ONE (08:53)
[2020-05-28 08:55] LABS: Blood Gas Oxyhemoglobin 95.7 % (94-97); Blood O2 Saturation 97.8 % (92-98.5)
[2020-05-28] MEDS ORDERED: ASPIRIN 325 MG TAB ONE (08:56)
[2020-05-28] MEDS ORDERED: TICAGRELOR 90 MG TABLET PO ONE (08:57)
[2020-05-28] MEDS ORDERED: HYDRALAZINE HCL 20 MG/ML VIAL ONE (09:10)
[2020-05-28] MEDS ORDERED: MORPHINE 4 MG/ML SYR ONE (09:22)
[2020-05-28] MEDS ORDERED: NITROGLYCERIN 0.4 MG/TAB SL ONE (09:23)
[2020-05-28] MEDS ORDERED: ONDANSETRON 4 MG/2 ML VIAL ONE (10:04)
[2020-05-28] MEDS ORDERED: NA CHLORIDE 0.9% 1,000 ML IV SCH (13:00)
[2020-05-28] MEDS ORDERED: NITROGLYCERIN 0.4 MG/TAB SL PRN (13:00)
[2020-05-28] MEDS ORDERED: ACETAMINOPHEN 325 MG TABLET PO PRN (13:00)
[2020-05-28 15:54] VITALS: BMI 33.2
--- NOTE | 2020-05-28 18:00 | P.HP ---
Certification for Inpatient Patient admitted to: Observation With expected LOS: <2 Midnights Patient will require the following post-hospital care: None Practitioner: I am a practitioner with admitting privileges, knowledge of patient current condition, hospital course, and medical plan of care. Services: Services provided to patient in accordance with Admission requirements found in Title 42 Section 412.3 of the Code of Federal Regulations Patient History Date of Service: 05/28/20 Reason for admission: chest pain, ACS rule out History of Present Illness: 60yo male with HTN, CAD s/p PCI (stents x2 in 2011) who underwent cardiac cath this morning due to continued L upper chest pain and L arm, worsening KAMINSKI, and b/l lower extremity edema. He was subsequently found to have 80% & 90% stenosis of RCA and underwent stent placement (DESx2) Allergies No Known Allergies Allergy (Unverified 05/25/20 12:02) Home Medications: Amlodipine [Norvasc*] 10 mg PO DAILY 05/28/20 Atorvastatin Calcium [Lipitor] 40 mg PO DAILY 05/28/20 Baclofen 20 mg PO TID 05/28/20 Gabapentin 1,200 mg PO BID 05/28/20 Meloxicam 15 mg PO DAILY 05/28/20 Metoprolol Tartrate [Lopressor*] 25 mg PO BID 05/28/20 Pantoprazole [Protonix Tab*] 40 mg PO DAILY 05/28/20 - Past Medical/Surgical History Has patient received pneumonia vaccine in the past: No Diabetic: No -: CAD -: Hypertension -: Hyperlipidemia -: Neuropathy -: Back Fusion 2009 -: Right Knee Surgery (October 12, 2019) - Family History Family History: Reviewed- Non-Contributory - Family History Father -: Cancer Notes: - kidney, lungs Mother -: Cancer Notes: - breast - Social History Smoking Status: Never smoker Alcohol use: Yes CD- Drugs: No Caffeine use: Yes Place of Residence: Home Review of Systems 10-point ROS is otherwise unremarkable Cardiovascular: Chest Pain (/ soreness) Physical Examination - Vital Signs Temperature: 98.3 F Blood Pressure: 123/65 Pulse: 79 Respirations: 14 - Physical Exam General: Alert, In no apparent distress, Oriented x3 HEENT: Mucous membr. moist/pink Neck: Supple Respiratory: Clear to auscultation bilaterally, Diminished Cardiovascular: Regular rate/rhythm, Normal S1 S2 Capillary refill: <2 Seconds Gastrointestinal: Hypoactive, Soft and benign Musculoskeletal: No tenderness Integumentary: No rashes, No breakdown Neurological: Normal speech, Normal affect Assessment and Plan - Plan Medical Problem List RCA stenosis s/p JULIETA HTN GERD Chronic pain RCA stenosis s/p JULIETA -monitor on telemetry -has some soreness along L chest / shoulder in recovery room -case discussed with Dr. Segura -continue ASA, start brilinta, statin HTN -monitor BP, continue home amlodipine, metoprolol GERD -continue home Protonix Chronic pain, Neuropathy -continue home baclofen, gabapentin Discharge Plan: Home Plan to discharge in: 24 Hours - Advance Directives Does patient have a Living Will: No Does patient have a Durable POA for Healthcare: No - Code Status/Comfort Care Code Status: Full Code
[2020-05-28] MEDS ORDERED: HOME MED 1 EA UNK (Baclofen [Baclofen] 20 MG) PO SCH (21:00)
[2020-05-28] MEDS ORDERED: GABAPENTIN 1200 MG PO SCH (21:00)
[2020-05-28] MEDS: TICAGRELOR 90 MG TABLET PO SCH (21:15)
[2020-05-28] MEDS: METOPROLOL TAR 25 MG TAB PO SCH (21:16)
[2020-05-28] MEDS: GABAPENTIN 400 MG CAP PO SCH (21:16)
[2020-05-28] MEDS: BACLOFEN 10 MG TAB PO SCH (21:16)
--- NOTE | 2020-05-28 21:27 | OP ---
Date of Procedure: 05/28/2020 Surgeon: UMM HARLEY Procedures Performed: 1.Selective coronary angiogram. 2.Percutaneous coronary intervention of severe mid right coronary artery stenosis using 3.5 x 12 mm Synergy drug-eluting stent. 3.Percutaneous coronary intervention of severe second mid right coronary artery stenosis using 4.0 x 24 mm Synergy drug-eluting stent. 4.Right heart catheterization. Access: Right radial artery 6-Emirati, closed with TR band and right IJ 7-Emirati, closed with manual pressure. Indications: 1.Unstable angina. 2.Dyspnea on exertion. Total Sedation Time: 95 minutes. Procedure In Detail: After risks, benefits, and alternatives were explained to the patient, the rahel ent agreed to procedure and signed informed consent. The patient was brought to the cardiac catheter ization laboratory, prepped and draped in usual sterile fashion, and we used fentanyl and Versed in i ncremental doses to achieve adequate moderate sedation. Then, we accessed right radial artery using pediatric micropuncture kit. A 6-Emirati slender sheath was placed. Then, we took a 5-Emirati [place] c atheter into the aortic root over a J-wire, engaged left main and right coronary artery and took isis dard views, determined severe mid RCA stenosis to the separate lesions using intervention and then we move to the intervention part. Intervention Details: We gave systemic heparin to assure ACT level above 250 and then we took a 6-Fr ench JR4 guide to get into the aortic root over a J-wire, engage the right coronary artery and took s hort run-through wire across the 2 mid RCA lesions and then we used initially a 3.0 x 50 mm Emerge co mpliant balloon and then took a 3.5 x 12 mm NC balloon and then 4.0 x 12 mm NC balloon and then prepp ed the proximal lesion due to heavy calcification using the cutting balloon, Fred. We used 3.5 x 10 mm initially and then 4.0 x 10 mm, and the lesion was predilated very well and we took a 3.5 x 1 2 mm stent to the distal lesion, deployed it successfully, and then we took 4.0 x 24 mm stent, overla pped it with a distal stent, and covered the proximal lesion successfully without complications. The final pictures reviewed. SYLVAIN-3 flow without complications and 0% residual stenosis. Lesion length was, the first one 16 mm and the second one was 8 mm, and the SYLVAIN-3 flow before and after PCI, 0% r esidual stenosis post PCI. Then, we did a right heart catheterization. Right heart catheterization details: We accessed right IJ under the ultrasound guidance and placed a 7-Emirati sheath and we took the 7-Emirati Stuyvesant catheter into the right atrium, recorded pressure with in RV and recorded pressure within the PA and then the wedge, recorded pressure in each location and we obtained PA saturation and aortic saturations to calculate cardiac output by Clotilde method. Then, r emoved the Stuyvesant catheter out and the sheath was removed and applied pressure for hemostasis. I remov ed all catheters outside the body and removed the radial sheath and applied TR band with good hemosta sis. Findings: 1.Left main distally has 20% stenosis. 2.LAD has mild luminal irregularities, otherwise no significant disease as there is a myocardial arci dge distally. 3.Left circumflex is moderate size with patent proximal stent and luminal irregularities and the OM branch is large size, has about 80-90% stenosis in the midportion. 4.RCA is a very large dominant vessel, has 2 lesions in the mid segment, first one 80% heavily calci fied, then the second one is 90% heavily calcified as well, status post successful PCI as outlined ab ove with 0% residual stenosis. No complications. The right heart catheterization has also showed an RA pressure of 6, RV pressure 26/3 with mean of 6, the PA pressure is 25/11 with a mean of 17, wedge of 7 mmHg. Impression: 1.Severe mid right coronary artery disease in 2 separate lesions, status post successful percutaneou s coronary intervention as above. 2.Severe OM1 disease. Percutaneous coronary intervention will be staged for this vessel due to the contrast load that was given today during the difficult RCA intervention. 3.Normal filling pressures. Recommendations: 1.Brilinta 180 mg was given, to continue 90 mg q.12 hours; aspirin 81 mg daily; and high-dose statin . 2.Observe overnight. If no complication, can be released home tomorrow and stage the OM branch to b e done in about 4 weeks due to the contrast load today. SR/MODL Voice ID: [id number] Report ID: [id number]
[2020-05-29 05:34] LABS: Hematocrit 42.1 % (39.6-49.0); RBC Red Blood Cell Count 4.77 M/uL (4.33-5.43)
[2020-05-29 05:55] LABS: Potassium 4.3 mmol/L (3.5-5.1)
[2020-05-29 06:25] VITALS: O2SAT 95
[2020-05-29] MEDS ORDERED: ASPIRIN 81 MG CHEWABLE TABLET PO SCH (09:00)
[2020-05-29] MEDS ORDERED: ATORVASTATIN 40 MG TAB PO SCH (09:00)
[2020-05-29] MEDS ORDERED: AMLODIPINE 10 MG TAB PO SCH (09:00)
[2020-05-29] MEDS ORDERED: PANTOPRAZOLE 40MG TABLET PO SCH (09:00)
[2020-05-29 09:32] VITALS: BP 140/70; TEMP 97.4
[2020-05-29] MEDS: GABAPENTIN 400 MG CAP PO SCH (10:03)
[2020-05-29] MEDS: BACLOFEN 10 MG TAB PO SCH (10:03)
[2020-05-29] MEDS: METOPROLOL TAR 25 MG TAB PO SCH (10:04)
[2020-05-29] MEDS: TICAGRELOR 90 MG TABLET PO SCH (10:53)
--- NOTE | 2020-05-29 19:55 | P.DS ---
Admission Date: 05/28/20 Discharge Date: 05/29/20 Disposition: DC HOME/HOME HEALTH CARE Reason for Admission: chest pain, s/p coronary stent placement Procedures: Procedures Performed: 1. Selective coronary angiogram. 2. Percutaneous coronary intervention of severe mid right coronary artery stenosis using 3.5 x 12 mm Synergy drug-eluting stent. 3. Percutaneous coronary intervention of severe second mid right coronary artery stenosis using 4.0 x 24 mm Synergy drug-eluting stent. 4. Right heart catheterization. Access: Right radial artery 6-[place] Islander, closed with TR band and right IJ 7- [place] Islander, closed with manual pressure. Indications: 1. Unstable angina. 2. Dyspnea on exertion. Brief History of Present Illness: 60yo male with HTN, CAD s/p PCI (stents x2 in 2011) who underwent cardiac cath 05/28/20 due to continued L upper chest pain and L arm, worsening KAMINSKI, and b/l lower extremity edema. He was subsequently found to have 80% & 90% stenosis of RCA and underwent stent placement (DESx2) Hospital Course: Patient's postoperative course was uncomplicated. He remained stable overnight, chest discomfort resolved and he was discharged home to follow up with cardiology and PCP. He was discharged on Plavix per Dr. Segura's recommendation. Vital Signs/Physical Exam: Temp Pulse Resp BP Pulse Ox 97.4 F 68 18 140/70 95 05/29/20 08:00 05/29/20 10:04 05/29/20 08:00 05/29/20 10:04 05/29/20 08:00 General: Alert, In no apparent distress HEENT: Mucous membr. moist/pink, EOMI Neck: Supple Respiratory: Clear to auscultation bilaterally, Normal air movement Cardiovascular: No edema, Normal S1 S2, Abnormal S3 Capillary refill: <2 Seconds Gastrointestinal: Normal bowel sounds, No tenderness Musculoskeletal: No erythema Integumentary: No rashes Neurological: Normal speech, Normal strength at 5/5 x4 extr, Normal affect Laboratory Data at Discharge: WBC 5.7 K/uL (4.3-10.9) D 05/29/20 05:13 Hgb 14.2 g/dL (13.6-17.9) 05/29/20 05:13 Hct 42.1 % (39.6-49.0) 05/29/20 05:13 Plt Count 211 K/uL (152-406) 05/29/20 05:13 PT 11.3 SECONDS (9.5-12.5) 05/25/20 12:24 INR 0.96 05/25/20 12:24 APTT 33.4 SECONDS (24.3-36.9) 05/25/20 12:24 Sodium 140 mmol/L (136-145) 05/29/20 05:13 Potassium 4.3 mmol/L (3.5-5.1) 05/29/20 05:13 BUN 16 mg/dL (7-18) 05/29/20 05:13 Creatinine 1.17 mg/dL (0.55-1.3) 05/29/20 05:13 Glucose 110 mg/dL (74-106) H 05/29/20 05:13 Home Medications: Amlodipine [Norvasc*] 10 mg PO DAILY 05/28/20 Atorvastatin Calcium [Lipitor] 40 mg PO DAILY 05/28/20 Baclofen 20 mg PO TID 05/28/20 Gabapentin 1,200 mg PO BID 05/28/20 Meloxicam 15 mg PO DAILY 05/28/20 Metoprolol Tartrate [Lopressor*] 25 mg PO BID 05/28/20 Pantoprazole [Protonix Tab*] 40 mg PO DAILY 05/28/20 Clopidogrel Bisulfate [Plavix] 75 mg PO DAILY 30 Days #30 tablet 05/29/20 New Medications: Clopidogrel Bisulfate [Plavix] 75 mg PO DAILY 30 Days #30 tablet Followup: Mahamed Segura MD [OUTSIDE PHYSICIAN] - 1-2 Weeks (Call to make an appointment. ) Time spent managing pt's care (in minutes): 35
== END 2020-05-29 11:39 | disposition home health service (06) ==
LOC: CCL 07:14 → UNDOADMOB 11:36 → INTOOBSV 11:36 → 2ND 11:36 → UNDOADMOB 14:47 → 2ND 14:50 → CCL 05-29 11:39
DX: I25.110 Atherosclerotic heart disease of native coronary artery with unstable angina pectoris (principal); R06.09 Other forms of dyspnea; I10 Essential (primary) hypertension; K21.9 Gastro-esophageal reflux disease without esophagitis; G89.29 Other chronic pain; E78.5 Hyperlipidemia, unspecified; G62.9 Polyneuropathy, unspecified; Z79.1 Long term (current) use of non-steroidal anti-inflammatories (NSAID); Z79.899 Other long term (current) drug therapy; Z95.5 Presence of coronary angioplasty implant and graft; Z98.1 Arthrodesis status
CPT/HCPCS: 85025; 80048 ×2; 36415 ×2; 85610; 85347 ×3; 85730; 85027; 71046; 93456; 82805 ×2; C1893; C1725; C9600; J0360; J1644 ×5; J2250 ×4; J3010 ×4; J7040 ×2; J2405

== ENCOUNTER 2020-07-02 07:13 | Day surgery (SDC) | payer OTHER ==
[2020-06-29 11:11] LABS: Absolute Lymphocytes (CBC) 1.2 K/uL (0.7-4.9); Basophils % 0.2 % (0-1.3); Hematocrit 43.5 % (39.6-49.0); Lymphocytes % 22.5 % (15.3-44.8); MPV 9.2 fL (7.6-11.3); RBC Red Blood Cell Count 4.98 M/uL (4.33-5.43)
[2020-06-29 11:15] LABS: Protime INR 0.98
[2020-06-29 11:36] LABS: Potassium 3.8 mmol/L (3.5-5.1)
--- OUTSIDE RECORDS SUMMARY | 2020-07-02 07:15 | XMS REPORT | Clinical Summary ---
:1960 Author Organization [facility] Address [address] [place] [address] Care Team Providers Name Role Phone Thompson [...] Travel 10/04/2019 Hospital Encounter Pre-Admission Testing after 07/02/2019 Social History Tobacco Use Types Packs/Day Years [...] Taken Blood Pressure 125/67 10/13/2019 8:30 AM NURSING STAFF DEVELOPMENT COORDINATOR Pulse 79 10/13/2019 8:51 AM NURSING STAFF DEVELOPMENT COORDINATOR Temperature 37.1 C (98.8 F) 10/13/2019 8:30 AM NURSING STAFF DEVELOPMENT COORDINATOR Respiratory Rate 18 10/13/2019 10:45 AM NURSING STAFF DEVELOPMENT COORDINATOR Oxygen Saturation 96% 10/13/2019 10:45 AM NURSING STAFF DEVELOPMENT COORDINATOR Inhaled Oxygen Concentration 21% 10/13/2019 8:51 AM NURSING STAFF DEVELOPMENT COORDINATOR Weight 105.7 kg (233 lb 0.4 oz) 10/12/2019 8:1 6 AM NURSING STAFF DEVELOPMENT COORDINATOR Height 175.3 cm (5' 9") 10/12/2019 8:16 AM NURSING STAFF DEVELOPMENT COORDINATOR Body Mass Index 34.41 10/12/2019 8:16 AM NURSING STAFF DEVELOPMENT COORDINATOR Plan of Treatment Not on file Implants Implanted Type Area Game Author Device Shelf Model / Identifier Expiration Serial / Date Lot Jalil Bn Palacos R+G-40 G [id number] - [id number] IMPLANTS Right: HER AEUS:HERAEUS 02/01/2022 [id number] / Implanted: Qty: 2 on 10/12/2019 by Ernst Morales MD Knee KULZER / [id number] Tib Cemented Stem 5d Sz G R [id number] - [id number] TOTAL JOINT Right: HORACIO:HORACIO 05/04/2029 [id number] / Implanted: Qty: 1 on 10/12/2019 by Ernst Morales Jr., MD CONSTRUCT Knee US / [id number] Fem Cemented Sz 10 R [id number] - [id number] TOTAL JOINT Right: HORACIO:HORACIO 10/04/2028 [id number] / Implanted: Qty: 1 on 10/12/2019 by Ernst Morales Jr., MD CONSTRUCT Knee US / [id number] Ext Stem Psn Str Hyb 14x30 Mm [id number] - [id number] TOTAL JOINT Right: HORACIO:HORACIO 09/03/2029 [id number] / Implanted: Qty: 1 on 10/12/2019 by Ernst Morales Jr., MD CONSTRUCT Knee US / [id number] Persona The Iizuu Knee System Hig hly Crosslinked Polyethylene Articular Surface Fixed Bearing Constrained Posterior Stabilized Right 10mm Height Right: Horacio 01/02/2023 [id number] / Implanted: Qty: 1 on 10/12/2019 by Ernst Morales Jr., MD Knee / [id number] Procedures Procedure Name Priority Date/Time Associated Diagnosis Comme nts RHYTHM STRIP - SCAN 10/17/2019 8:32 AM NURSING STAFF DEVELOPMENT COORDINATOR TRANSFUSION SERVICE 10/13/2019 6:03 REPORT - SCAN PM NURSING STAFF DEVELOPMENT COORDINATOR POCT-GLUCOSE METER Routine 10/13/2019 7:11 Resul ts for this AM NURSING STAFF DEVELOPMENT COORDINATOR procedure are i n the results section. HEMOGLOBIN AND Routine 10/13/2019 4:59 Results f or this HEMATOCRIT AM NURSING STAFF DEVELOPMENT COORDINATOR procedure are i n the results section. BASIC METABOLIC Routine 10/13/2019 4:59 Results for this PANEL (7) AM NURSING STAFF DEVELOPMENT COORDINATOR procedure are i n the results section. POCT-GLUCOSE METER Routine 10/12/2019 9:00 Resul ts for this PM NURSING STAFF DEVELOPMENT COORDINATOR procedure are i n the results section. XR KNEE RIGHT 1 OR 2 STAT 10/12/2019 4:17 Res ults for this VIEWS PM NURSING STAFF DEVELOPMENT COORDINATOR procedure are i n the results section. ARTHROPLASTY,KNEE 10/12/2019 2:45 Osteoarthritis of UNILATERAL PM NURSING STAFF DEVELOPMENT COORDINATOR right knee, unspecified osteoarthritis type Case Notes 2 HRS Special Needs (HORACIO, SPINAL WITH PERIPHE RAL NERVE BLOCK) TISSUE EXAM AP Routine 10/12/2019 2:40 PM NURSING STAFF DEVELOPMENT COORDINATOR Resu lts for this procedure are i n the results section . ANESTHESIA PERIPHERAL Routine 10/12/2019 1:26 PM NURSING STAFF DEVELOPMENT COORDINATOR Results for this BLOCK procedure are i n the results section . ANESTHESIA SPINAL BLOCK Routine 10/12/2019 1:25 PM NURSING STAFF DEVELOPMENT COORDINATOR Results for this procedure are i n the results section . ABORH, MANUAL Routine 10/12/2019 10:58 AM NURSING STAFF DEVELOPMENT COORDINATOR Res ults for this procedure are i n the results section . TYPE AND SCREEN, Routine 10/12/2019 10:58 AM NURSING STAFF DEVELOPMENT COORDINATOR Results for this AUTOMATED procedure are i n the results section . after 07/02/2019 Results RHYTHM STRIP - SCAN (10/17/2019 8:32 AM NURSING STAFF DEVELOPMENT COORDINATOR) Narrative Performed At This result has an attachment that is no t available. TRANSFUSION SERVICE REPORT - SCAN (10/13/2019 6:03 PM NURSING STAFF DEVELOPMENT COORDINATOR) Narrative Performed At This result has an attachment that is no t available. POC-Glucose meter (10/13/2019 7:11 AM NURSING STAFF DEVELOPMENT COORDINATOR)Only the most recent of2 results within the time period is included. POC-Glucose Meter 145 (H)Comment: : TESTED 70 - 110 mg/dL [facility] [address] [facility] [id number]: Renovation Plant Supervisor/Cell Manager ID = [id number] for Jennifer Don Specimen Blood Performing Organization Address [facility]/Zipcode Phone Number [facility] [address] [place], [place] [id number] CENTER Hemoglobin and hematocrit (10/13/2019 4:59 AM NURSING STAFF DEVELOPMENT COORDINATOR) Hemoglobin 12.1 (L) 13.7 - 17.5 GM/DL [facility] Hematocrit 36.7 (L) 40.1 - 51.0 % [facility] Specimen Blood Performing Organization Address City/[facility]/Zipcode Phone Number [facility] [address] [place] [address] Basic Metabolic Panel (10/13/2019 4:59 AM NURSING STAFF DEVELOPMENT COORDINATOR) Sodium 138 136 - 145 meq/L [facility] Potassium 5.0Comment: Specimen slightly 3.5 - 5.1 meq/L [facility] - hemolyzed DEE Chloride 105 98 - 107 meq/L [facility] CO2 24 22 - 29 meq/L [facility] BUN 15 7 - 21 mg/dL [facility] Creatinine 1.15Comment: Specimen 0.57 - 1.25 mg/dL [facility] - slightly hemolyzed DEE Glucose 119 (H) 70 - 105 mg/dL [facility] Calcium 8.5 8.4 - 10.2 mg/dL [facility] EGFR 65Comment: ESTIMATED GFR IS mL/min/1.73 sq m [facility] - NOT ACCURATE CREATININE MC ALANIS CLEARANCE IN PREDICTING GLOMERULAR FILTRATION RATE. ESTIMATED GFR IS NOT APPLICABLE FOR DIALYSIS PATIENTS. Specimen Blood Performing Organization Address City/State/Zipcode Phone Number [facility] [address] [place] [address] XR knee 1 or 2 views right (10/12/2019 4:17 PM NURSING STAFF DEVELOPMENT COORDINATOR) Specimen Narrative Performed At FINAL REPORT [facility] COMPARISON: None. FINDINGS: 2 views of the right knee are submitted. Patient is presumably status post recent right knee replacement. There is anatomic alignment of the surgical prost hesis. There is postoperative gas in the surrounding soft tissues . Signed: Satya Huff MD Report Verified Date/Time:10/12/2019 16:44:57 Reading Location: [facility] Room Procedure Note Interface, External Ris In - 10/12/2019 4:47 PM NURSING STAFF DEVELOPMENT COORDINATOR FINAL REPORT COMPARISON: None. FINDINGS: 2 views of the right knee are submitted. Patient is presumably status post recent right knee replacement. There is anatomic alignment of the surgical prost hesis. There is postoperative gas in the surrounding soft tissues . Signed: Satya Huff MD Report Verified Date/Time: 10/12/2019 1 6:44:57 Reading Location: [facility] Room Performing Organization Address City/[facility]/Zipcode Phone Number GE RIS Tissue Exam (10/12/2019 2:40 PM NURSING STAFF DEVELOPMENT COORDINATOR) Case Report Surgical Pathology Report Case: [id number] [facility] Authorizing Provider:Ersnt Mariee Collected: 10/12/2019 1440 [facility] Abe Cuellar MD Ordering Location: [facility] ORReceived:10/13/2019 0810 Perioperative Services Pathologist: Sabi John MD Specimen:Condyle,Rig ht Knee DIAGNOSIS CONDYLES, RIGHT KNEE, ARTHROPLASTY: [facility] - DEGENERATIVE CHANGES CONSISTENT WITH OSTEOA RTHRITIS [facility] - SYNOVIUM WITH REACTIVE CHANGES Signing Pathologist Direct Phone Line: CPT Code(s) 85077, [address] [facility] CLINICAL HISTORY Preop diagnosis: [facility] osteoarthritis or right [facility] knee, unspecified osteoarthritis type SPECIMEN SOURCE Condyle right knee [facility] GROSS DESCRIPTION Received in formalin labeled with the patient's name, accession number and "condyle, right knee" are multiple jones-yellow bone and soft tissue fragments that range from 3.0 to 7.8 cm in greatest dimensi [facility] on. The articular surface is smooth to finely granular, focally erythematous and displays multiple peripheral osteophytes that measure up to 2.0 cm in greatest dimension. The cut surface is jones-yellow, [facility] trabeculated and firm with c ortical bone measuring up to 0.2 cm thick. Apprentice Machinist Outside sections are submitted as A1-A3 following decalcification. PA/pl MICROSCOPIC DESCRIPTION Performed. [facility] Specimen Tissue - Condyle,Right Knee Performing Organization Address City/[facility]/Zipcode Phone Number [facility] [address] [place] [address] CENTER ANESTHESIA PERIPHERAL BLOCK (10/12/2019 1:26 PM NURSING STAFF DEVELOPMENT COORDINATOR) Narrative Performed At Patricai Ortiz MD 0201:27 PM Peripheral Block Patient [...] Patricia Ortiz MD - 10/12/2019 1:26 PM NURSING STAFF DEVELOPMENT COORDINATOR Peripheral Block Patient location during procedure: pre-p [...] e ANESTHESIA SPINAL BLOCK (10/12/2019 1:25 PM NURSING STAFF DEVELOPMENT COORDINATOR) Narrative Performed At Patricia Ortiz MD 0201:27 [...] Patricia Ortiz MD - 10/12/2019 1:25 PM NURSING STAFF DEVELOPMENT COORDINATOR Spinal Block Patient location during procedure: pre-p [...] Type and screen, automated (10/12/2019 10:58 AM NURSING STAFF DEVELOPMENT COORDINATOR) Ab Scrn NEGATIVEComment: done on echo [facility] Specimen Blood Performing Organization Address City/[facility] Phone Number [address] [address] ABORH, manual (10/12/2019 10:58 AM NURSING STAFF DEVELOPMENT COORDINATOR) ABO Grouping O [facility] Rh Factor POS [facility] Specimen Blood Performing Organization Address City/[facility]/Zipcode Phone Number [address] [place] [address] after 07/02/2019 Insurance Payer Benefit Plan / Group Subscriber ID Type Phone A ddress [employer] xxxxxxxxx Maps Contracted Advance Directives For more information, please contact:[facility], [place] [phone] Code Status Date Activated Date Inactivated Comments Full Code 10/12/2019 4:26 PM 10/13/2019 2:23 PM This code status was determined by: Patient Full Code 10/12/2019 10:27 AM 10/12/2019 4:26 PM This code status was determined by: Patient
--- OUTSIDE RECORDS SUMMARY | 2020-07-02 07:15 | XMS REPORT | Continuity of Care Document ---
:1960 Author Organization [facility] t Address [address] [place] [address] Care Team Providers Name Role Phone Thompson Chadwick Primary Care Physician Carmen ARIAS Attending Clinician Rommel PLUMMER, Douglas Attending Clinician LIS GOYAL Attending Clinician Unavailable Carmen ARIAS, Lis Attending Clinician Antonino Tan MD Attending Clinician LIS GOYAL Admitting Clinician Unavailable Payers Payer Name Policy Type Policy Number Effective Expiration Source Date Date CIGNA xxxxxxxxx [facility] Services[facility] [place] [facility] ALLxxxxxxxxxMaps Center Contracted Problems Condition Condition Condition Status Onset Resolution Last Treating Co mments Source Name Details Category Date Date Treatment Clinician Date Arthritis Arthritis Disease Active [facility] right 10-12 [facility] - knee knee 00:00: Medical 00 Center Allergies, Adverse Reactions, Alerts This patient has no known allergies or adverse reactions. Social History Social Habit Start Date Stop Date Quantity Comments Source History [facility] Std Drinks Medica l Center History [facility] - Alcohol Binge Medical Christopher ter Sex Assigned At [facility] History SDOH 2019-10-04 2019-10-[address] [facility] - Alcohol Frequency 00:00:00 00:00:00 [facility] Center Tobacco Comment 2019-10-04 2019-10-04 quit at [...] 12:04: 00:00 daily. Medic al 18 :00 [facility] meloxicam No 15mg QD Take 1 [facility] (MOBIC) 15 10-13 tablet (15 Sunitha kes - MG tablet 00:00: 23:59 mg total) Me dical 00 :00 by mouth Center daily for 30 days. amLODIPine 2018-10 Yes 10mg QD Take [address] (NORVASC) 2-31 by mouth [facility] - 10 MG 12:49: daily. Medical tablet 14 [place] pantoprazol 2018-10 Yes 40mg Q.5D Take [address] e 2-31 by mouth 2 [facility] - (PROTONIX) 12:49: (two) Medica l 40 MG 14 times Center tablet daily. gabapentin 2018-10 Yes 600mg Q.[id number] Take [address] (NEURONTIN) 2-31 [id number] mg by L ukes - 600 MG 12:49: 3D mouth 3 Medical tablet 14 (three) Center times daily. baclofen 2018-10 Yes 20mg Q.[id number] Take [address] (LIORESAL) 2-31 [id number] by mouth 3 [facility] - 20 MG [...] Source Respiratory rate 2019-10-13 10:45:00 18 /min [facility] Oxygen saturation in 2019-10-13 10:45:00 96 /min [facility] Arterial blood by Medical Ce nter Pulse oximetry Heart rate 2019-10-13 08:51:00 79 /min [facility] Systolic blood 2019-10-13 08:30:00 125 mm[Hg] [facility] Diastolic blood 2019-10-13 08:30:00 67 mm[Hg] [facility] Body temperature 2019-10-13 08:30:00 37.11 Ninoska [facility] Body height 2019-10-12 08:16:00 175.3 cm [facility] Body weight Measured 2019-10-12 08:16:00 105.7 kg [facility] BMI 2019-10-12 08:16:00 34.41 kg/m2 [facility] Procedures Procedure Date / Time Performed Performing Clinician [facility] e RHYTHM STRIP - SCAN 2019-10-17 08:32:12 Provider, Default [facility] TRANSFUSION SERVICE 2019-10-13 18:03:35 Provider, Default [facility] REPORT SCAN [facility] POCT-GLUCOSE METER 2019-10-13 07:11:00 Ernst Goyal [facility] BASIC METABOLIC PANEL 2019-10-13 04:59:00 KrauseDottie schmidt [facility] (7) [facility] HEMOGLOBIN AND 2019-10-13 04:59:00 Dottie Krause [facility] HEMATOCRIT [facility] POCT-GLUCOSE METER 2019-10-12 21:00:00 Ernst Goyal [facility] XR KNEE RIGHT 1 OR 2 2019-10-12 16:17:00 Keith Mcbride [facility] ARTHROPLASTY,KNEE 2019-10-12 14:45:00 Ernst Goyal [facility] TISSUE EXAM 2019-10-12 14:40:00 Ernst Goyal [facility] ANESTHESIA PERIPHERAL 2019-10-12 13:26:38 Patricia Ortiz [facility] ANESTHESIA SPINAL BLOCK 2019-10-12 13:25:43 Patricia Ortiz [facility] ABORH, MANUAL 2019-10-12 10:58:00 Keith Mcbride [facility] Encounters Start End Encounter Admission Attending Care Care Encounter Source Date/Time Date/Time Type Type Clinicians Facility Department ID 2019-12-05 2019-12-05 Office KARON Goyal [id number] 12:08:28 12:18:28 Visit Ernst AMBULATOR 350.1.13.21 Y 0.2.7.2.686 [id number] 600 2019-10-27 2019-10-27 Office KARON Goyal [id number] 10:26:14 11:26:31 Visit Ernst AMBULATOR 350.1.13.21 Y 0.2.7.2.686 [id number] 2019-07-04 2019-07-04 Office KARON Goyal [id number] 12:43:07 14:30:53 Visit Ernst AMBULATOR 350.1.13.21 Y 0.2.7.2.686 [id number] Results Test Description Test Time Test Comments Results Result Comments Source Tissue Exam 2019-10-19 13:46:00 Test Item Value Reference Range Interpretation Comme nts Case Report (test code = 104) Surgical Pathology Report Case: [id number] Authorizing Provider: Ernst Goyal Collected: 10/12/2019 1440 Lis Cuellar MD Ordering Location: [facility] OR Received: 10/13/2019 08 Perioperative Services Pathologist: Sabi John MD Specimen: Condyle,Right Knee DIAGNOSIS (test code = 3220) e6cotHLmYBSye3qzKUBrsGPqXyWqYmAvHpOqWd pc iSYjOLwsmvJnDGbau6CqH6IbOyAbQKzxuyGfVBKy PfqggqxqMWZrOXL2wcYvYITpJFcvPKEiJQidUe7t zONopWpnMlYyUCYym6icqaJTfdbxsMl7rGmvH57h p0P5WdilZ0xsREIvVMWjP0CzUD9rJNNaImv5PJZ2 SEP7ORUfGCZjI9ZfIG0xOOMkuNUfRWg1z9gzpLmv YHAtNRN7v2joSZryntDfOU9ohw0gnPd9y0ertbRy MPLrJLFicVLXCXQlQ0MhyObtZv3vmEp3mKpfVvks DNM2Jld5AF3nix97jid4rElgYCQipdecNpJ8YRdm UDDakwvgEGn9DEoiXKJrkThlQJfiHPAxppteCOmo KCXzrGuaBPhmARQwWnxvIFvpXZSkQPX3SLtaq000 UWO2XDqmp1wiv4pprMDvNvs0HKAnXpQeOyjlNTzo d4Gfg6vmZHNydk9wJNI1rKZtvPoxf3L7aRPpZJPw zFVcopSvFZFzOvT8DCukNR2zdx08SIEjKQD9ny9h nYNzgCtgspWilHEvJOttE4YhXULva430FDIyZ7Lw SIKmu8S8deSaNgKuRBGcoPY6acC6NRLsEMu8mVNj nxE5ebXqbKEyN3omtN02ZhSqiMVtO1RfwV17DqDz aAMpA8DzlW20XlDusNOyU6ItuX24RgOxkKSvSOWy wNStFa2heGRksJCwt7NdyOYdQFkyA85qv663ZZPg xgCeM4iwuUJieqxovAWzafzpIKahatO9DSUsIUVn YWluXGYwXGZzMjBcbGFuZzEwMzNcaGljaFxmMFxk VpVrFSCqLOyxQ9fyGsPxDfRwPEDDM06ZQOaACsyt OizNYDYrX16ARRsvWEEIKGXYLViOK9TXQopnWGPr IMLvQMZCILkUHoXJUSVIWfEmE9aUXucHIxAPC15X VBZOQR4JAOrUNOunK9WMVD9WWpVPAlrZTRCzqJEj GUDpYD5sS1aTC6QSDO7pB9iOKNGYFJEHIMwSIRGD DOWBW5FGDTDgjvmmSUX9r0milYQqZZVqbZPnSYJu QKctegXpJZIpJindzcmhXBDfCKU2weKoUDYuQMoa XKYiEAsvSq3sxQIkyAhcFaNcOVOgp0ifdpROuidu sCt1o4zhZXQbIfM4qQOoRJtnN2zrjiDddGOsLNWc MQd0eW20YCQzeX5hmGLsBRcwmyJqMeM3GCqaUKZt OoI8YEKhyPTjYUMtZ0jhYZFdNHimLEWmRIramOTc ZES3gVtef3M9wJNveYKayKmlHkGkAzAwXzBCb5Fv GKi1rKfzX5RuVBGaCcX2mOLePUCbRVvqNOXiQLIg lmS6rE66SVkesrK2lDXpd3Bjn26ei627nI4oaTDx XAL0NMMgWYOwvVHhLCFbQRC6MCLecGQnJ7biMSLu EG1fhnmhDUswUEdzDUWazYT4IEMrkSUcD1SkTEYg XRfqCRQhbuz2XoTtAq4lhVVgmFdqARoxp3pdu7wc pQDkVhx6KHTeOdObMdllMEeuq0Les5riYEMaaf7w POV4tZXpiXcxs8X6fLHnDLDooUXkZWRxLY6trXQx WYEydS3dzutfXBTkUqBzkhljHYLezMzkueSdYb8b iOvhGXK8WLbmK9bonO6oRnM6NOwfC1ypxE6uJEs1 IUjoLVBqfMY1pjN2SZJufXLbP4BivO6yYPWkUC0r hih4m6ceUHW3MMfhOAKdScC4dhE7LDGdhMHsXVTv oAmfEYhff540RBS1IdNgFZJrb2YnH6BxmPzwN96z lVliA56yMXAlmJzuyK5jsFpduM9jCfHjXeJoQElv hYlmZS2qJLNlQ0fznIFdMDLjSQIjN4hpRqCxfS5g sCfjLEnsdlAqGAPaMba3FDFjkJDnCMDrJgd8NCAv JIMxV22qygdaUHI6mI4yz9nmg2ZmUIfeFQA5HZYa k41uKPpkbbK2UFusBc8hWPVhCKT5BCfuNQI5fH== CPT Code(s) (test code = 3357) b0jgqDHbAEAafIJkAkYyDFMcSSDie6ivQMCc bGFu JuHqNwEoFfQhDusbvMCaXMGxCwCrt8eoq031eXTp p6paOHOyLhJ8sFRdKVThdJYgF138b3klj5bftbTi xIB8NOQlTFF2USsfvlCpmcZ9OSgmxESeQjX9PJki xuQcOFfamxGdngKkTdn5XCFhA098FPS7xVprz6eq JKW3YJIyXAFuYqAeEh0laONsP069GXIxKDPILPBw xEy1BCDbuzBltsNsiEIMh983P519q6apMMPvehRa pWzSdtmlg9fkV614NLPzjWTayaXwKoZqCXRnjEEa xPH9WDDiRN6avrrxHhXfGP9dgdzvZpDkET7pmsz7 UlFsUN5hlrojQxSpHVxbOOXjiutdFSXhr0Pjpzte PX4bC3Vap4V6vS8iwHGxXPVwfHZhMlTwCXEwha3t lEFcRGnxz5YhQHE3arY0rKVtsTYrVKJvCM32Gdkk c3ZhGeaxOZA6IHAbunAel8Heo1sbAkAvhsNyI5nr Q1UyLIOkLVUyZBTlIzEwlfWwl7Mta5LqzEKhfKc8 d5atYUHgEJIfsTmeu3urYJR5LFQlO5B3rNVos0ww NTapOPRqtZS3ilinJFpqLNDsvkY1yijaHNfcXZMj wOB0miglPNpuLSIvPmR9dpbxVItxUQMgUKJ6TIgg h084PYO4INwsXxzuKWypUTQzsfWjafSraEhxYTKi SEBqJGsuLMWqTWkgPJWnMMDwHmPswFweiMrmjW8l AdJsZoJxBDiqAL5xWIKuO5colHJkQQZzBPFwG0uw YfRaqR1ioJtnKTrnnvUcLMw5WgS3SGD3VQPcVYrt YXJ9 CLINICAL HISTORY (test code = 3356) d9gcuJSxSMDulGRfPkDgIKVrAAHgx1s cZGVmbGFu TlKyMiEmQzYyZidpiYPxSOQjNgFsr8pno263wUUb j3tsHIMwNrL7bQGkDUWtxBYuQ140EQPfRHnoi2op v8WzVXLowPJya4W1AVXGyxqdmAc2fYarY16wt2T5 KkxsC4huMKZcSQtnWFNgHQecdTAaJGG5TRDoGIQ7 YLitsyEkqnR9EBhsqLOhSeC1MXd0a4cjxBajYORz TGR3z7apUQsktgBfZJ6mab3nvWv0m6yyxuKbLCCo SQUluTABXHNvZ0RfuMggJb9ysBa2sDeoYtyqISC0 Qht8DU8ylz11rmy1sTatOXPkxnnxPiA3GJckCNBp ynurWOx6PRzdQYTyfAicGEocIESawbasMWraTPIn rGnkAWrbWWHuNsziQNbwPMVoKOG1WCkku246ZXM8 OXfus9hxn3xgeDCkHpb6HOGhShUcAmhtJVhxa2Lm r1dySREdif0tAKJ7xWQlxWerd9V5vQCuHUKrvLCp dsUeBMJmMkG2FUorKE1xzo50YDRnKRO6cs6hrBIr sCvetnNihGKiKBsxO8GoGQZef907BUExE6BfBLCh s8A5swKgPxJtOURukIV3txD8HPUeZGf2sVMdcuM1 zuMfyUMtA2wfeI84EgVchBNdJ8VgoQ80DgNccOKc D1QptT62LnUopMRvY2FqbN29TqRvqKGoLNHgqQLf Cg1byLXskCXzy4MzxYDgIWqrX09yo495ENAvkoLp D1gfyURolatuaEAnzkppLGdpkjLjCNLiKJZwVOqa EYOwFPVkZsTxcOlroF8vLpKmFpSmPJRCjyGkgFAz zQMxov7fmGY9ELSpdXrmrQ1zQbWvSiZbMIRfe8Vd o9YoeAogzSBlp0ebaHFttbuaVAksklLtRZFfwvOg sZpiqZPerdKbHBK8geNyKXIdUahxWGAqyFsrbM8n IfMlFpWvKJAbd5Euf8GjsAftqXTxq8cegSQbiiwm WOzhzaWmAUT9eODxLUYmxp2= SPECIMEN SOURCE (test code = 3377) m9phcLInMYBinUXsYiLdEMKpZKVte1aw ZGVmbGFu PgRlFfSqPeFuEchljRLeZAJkBcAdk2ztq945uSAa m8czBHYpDqC5oUBeTHZknZFbD657z7ghg6vvyvMe rEV5BPFkHJK2GVpkobVkdqW5ZRcgrABwUjF9ZWpz lcObSYfwipAdldFrVwc7KPCtZ396TSM3lKkdm8rt GVK2GXVrIKDnVmGrKv8uuQUsJ991SJHgORVVUMFg bJb0MXBdtyDaufIpjCFBz194O009a8kbUXLjsuRm yXtLndkyv4bnG547PJXyrXPdnbJrFbGjIPBaeYAn lWK4TMXoJR9qeuyaHjQhUA0wlvahYvBqPC4slzi3 BeBsIN4nfbmnTdMwCUbgRRBokfblIQLye5Unbqbr JU5zA8Kwi3D0yE5xtANvJOLwhIRxUsYkWOHxbn7a lWIfSFlnr9NvMMT1svQ0iUBfiHWhESFeWA68Gdax b6TcVluwFIP3CJKqluTyg9Fuc8deGxSakzCgP6zq T3NoMAQfHYDuGGRdGtGejrWmy6Mqc0KghCYinVj2 x6adIMNnWONkiTlnz5xxZEK4OTIbX0C3iBZxd8aw SVizSMGatKX9vpbsDCgbGEQpxvW8huzaRFykPIEw tXJ7kxskTCqqAJNzHrB9ytwwJHruNCMaPMW1MZjs n006LNA4DNqzIistOJipXDBdlyGsudVmcWenRGXe UQOqTZjwHLNgCLkhTIMtIVDpJmIkxJxvlMgafA8y ZhVsMvQeRDreVT1zRZVpR1lfcDWjDLTzNVMoH6mt KpBusY6ptIygULulsiZjMDLfxpV0mBLstnvyiYTm o44sJOofKSN1 GROSS DESCRIPTION (test code = 3366) a8fiqQCyUXHmtXXfKrSeZUGhHBTyw6 lcZGVmbGFu [file] cyBhbmQgZGlzcGxheXMgbXVsdGlwbGUgcGVyaXBo OVBijZMia2Ldy7KveGIvyqV6mIQ8ZA8rLYE7bwEg sDQteK6bLb8oFPUxDStjSUwePKI0JLM0VCQcoVGe t6bvgw8oHWwkSZM2oCGgdKLzFHUxDZipDPOvrz55 OPbtx5qtURAcWJArP6AlKJJjYTTwffAoXzswvOF7 lHSzNPRwahBzS6GhAJJptdPksSFxf0QmeP2lISSt SPMkXHPkPpDehYP0xVofde3cWsVlliQfRU38TGTc dhSjp9NypPeariVvUZFkCWT1Bx4ntUIlCXCuswKD MB8LRzNsm2uxv2swjhjtEGRdPZvioQCqS5O0nJ5d LiAgUEEvcGxccGFyICBccGFyfQ== MICROSCOPIC DESCRIPTION (test code = k3ieiPKrGQWksSTaQeMmQMCyTKYxm4 [place] [address]) XwXhOwXoXbTjYxugqHHxVVPxYiAvd1amw301fQUs r2xgGXXtUrS5rVNrFBTuuOPfY587f4bzm5wqyjJa yLN5IDCjWTG2YAuachIlsgL5CUgmzXQoEwY4PRds pmQxTKwwriCqqeOqHqo8SGOhP751EOG5fMagf6hd ROO3JSPpNAPfZqXwWi8sySZuV318TKNpYPJWBTJv dEo9NRYgoeDdxbEqsNAKn045U763i0vkNOAesiMa yHoEgdnhc9nrA091JNIssIYgofMvJwIsPKOuwJBr sCY2IKUxYY1vvvhsCxSwWQ6ekfxbCaZyIV3wpwm9 GwBuZR8jfecnKmXeNWsuIEBkgxxjEXWzk5Stdnii RD9sP9Ahn0Z7vL1qnIBiYBXnmVRkAvHpDHHllp3e hYQeECdic3VbAWZ9oeX1pUWyzHClDPEuXD93Bvxg q1OwWcbfSSA4XXLyuaUjl8Fau9inAqRmzmGoW5xu R1LkJJPgMOTkEOTkQtBqliLmy9Cag0MxkPJndSb1 u5xoSVHeRCPesTtqa8maXIV8ARKjT9M6wSRjn1ki VFklANZpvFQ4glgmQQfiUKNnlqS4eshfAHaiETOf kEH6vxapNFqqUVXaZxP0kotkMJggVQScTPH0RPle g888PBH9PAwcTgvmGUiiIENivlPzmcSagLjeFTAr QGPjQDisXZGdSHxxVBMnDHZuVoIjwJmrhJfqaC7x PeZtDfKiNLlnMO9iTBKvU3aljUOpDKNnVJXeY3zy BkWklK0yzJdkDWckgfBwELIixqGuwy9sUF5yaQEw fQ== [facility] [id number] 13:46:00Surgical Pathology Report Case: [id number] Authorizing Provider: Ernst Goyal Collected: 10/12/2019 1440 Lis Cuellar MD OrderingLocation: [facility] OR Received: 10/13/2019 0810 Perioperative Services Pathologist: Sabi John MD Specimen: Condy le,Right Knee CONDYLES, RIGHT KNEE, ARTHROPLASTY: - DEGENERATIVE CHANGES CONSISTENT WITH OSTEOARTHRITIS - SYNOVIUM WITH REACTIVE CHANGES Signing Pathologist Direct Phone Line: [phone] signed by Sabi John MD on 10/19/2019 at 1:46 [id number], [id number] diagnosis: osteoarthritis or right knee, unspecified osteoarthritis [...] bone measuring up to 0.2 cm thick. Service Counter Cashier sections are submitted as A1-A3 following decalcification. PA/pl Performed.POC-Glucose meter 2019-10-13 07:23:00 Test Item Value Reference Range Interpretation Comments POC-Glucose Meter (test 145 mg/dL 70-110 H : TE STED AT [facility] code = 1538) [address] [facility], [facility] [id number]: Health Manager/Techni norah ID = [id number] for Юлия Don Lab Interpretation (test Abnormal code = 89902-1) [facility] [id number] 07:23:00 Test Item Value Reference Range Interpretation Comments POC-GLUCOSE METER 145 mg/dL 70-110 H : TESTED A T [facility] 7200 (BEAKER) (test code [facility], = 1538) [facility] 7703 0: Health Manager/Techni norah ID = [id number] for Jennifer Woodruff Basic Metabolic [id number] 06:29:00 Test Item Value Reference Range Interpretation Comments Sodium (test code = 138 meq/L 054-751 9069-2) Potassium (test code = 5.0 meq/L 3.5-5.1 [...] Calcium (test code = 8.5 mg/dL 8.4-10.2 99945-3) EGFR (test code = 65 mL/min/1.73 [place] [address]-3) NOT ACCURATE CREATININE CLEARANCE IN PREDICTING GLOMERULAR FILTRATION RATE . ESTIMATED GFR I S NOT APPLICABLE FOR DIALYSIS PATIEN TS. Lab Interpretation Abnormal (test code = 51116-4) [facility]OLIC [id number] 06:29:00 Test Item Value Reference Range Interpretation [...] APPLICABLE FOR DIALYSIS PATIEN TS. Hemoglobin and [id number] 06:16:00 Test Item Value Reference Range Interpretation Comments Hemoglobin (test code = 786-4) 12.1 13.7- 17.5 GM/DL L Hematocrit (test code = 4544-3) 36.7 % 40.1-51 L Lab Interpretation (test code = Abnormal 55136-6) [facility] CenterHEMOGLOBIN AND [id number] 06:16:00 Test Item Value Reference Range Interpretation Comments HEMOGLOBIN (BEAKER) (test code = 12.1 GM/DL 13.7-17.5 L 410) HEMATOCRIT (BEAKER) (test code = 36.7 % 40.1-51.0 L 411) POCT-GLUCOSE [id number] 21:12:00 Test Item Value Reference Range Interpretation Comments POC-GLUCOSE METER 195 mg/dL 70-110 H : TESTED A T [facility] 7200 (BEAKER) (test code [facility] A, = 1538) [facility] 770 0: Health Manager/Techni norah ID = [id number] for BETTY PAVANEKINAANSHUL RAD, KNEE, 1 OR 2 VIEWS, [id number] 16:44:00Reason for exam:->s/p r tkaShould this be performed at the bedside?->YesFINAL REPORT COMPARISON: None. FINDINGS: 2 views of the right knee are submitted. Patient is presumably status post recent right knee replacement. There is anatomic alignment of the surgical prosthesis. There is postoperative gas in the surrounding soft tissues . Signed: Satya Mac MDReport Verified Date/Time: 10/12/2019 16:44:57 Reading Location: [facility] Radiology Reading Room XR knee 1 or 2 views [id number] 16:44:00Interface, External Ris In - 10/12/2019 4:47 PM CSTFINAL REPORT COMPARISON: None. FINDINGS: 2 views of the right knee are submitted. Patient is presumably status post recent right knee replacement. There is anatomic alignment of the surgical prosthesis. There is postoperative gas in the surrounding soft tissues . Signed: Satya Mac MDReport Verified Date/Time: 10/12/2019 16:44:57 Reading Location: [facility] Radiology Reading Room [facility] PeninsulaAB[facility], [id number] 14:23:00 Test Item Value Reference Range Interpretation Comments ABO Grouping (test code = 2588) O Rh Factor (test code = 2589) POS [facility] CenterType and screen, [id number] 14:17:00 Test Item Value Reference Range Interpretation Comments Ab Scrn (test code = 890-4) NEGATIVE done on echo [facility] CenterANESTHESIA PERIPHERAL [id number] 13:26:38 Patricia Ortiz MD - 10/12/2019 1:26 [...] position: supinePatient monitoring: EKG, HR, BP and LhN6Xwsniyjlrn: rightBlock type: adductor canalInjection technique: cathet erultrasound [...] procedure wellAdditional NotesDrEmy Cota present throughout procedureCHI [facility] PeninsulaANESTHESIA SPINAL [id number] 13:25:43HaddPatricia dawson MD - 10/12/2019 1:25 PM [...] immediate complicationsAdditional NotesDr. Cota present throughout procedure [facility]
[2020-07-02] MEDS ORDERED: HEPA 1000U/500MLS 1,000 UNIT/500 ML BAG IV ONE ×2 (07:21→08:20)
[2020-07-02] MEDS ORDERED: HEPARIN 10,000 UNIT/10 ML VIAL IV ONE (07:22)
[2020-07-02] MEDS ORDERED: HEPARIN 5000 UNIT/ML 1 ML VIAL ONE ×3 (07:22→18:34)
[2020-07-02] MEDS ORDERED: NICARDIPINE HCL 25 MG/10 ML IV ONE ×2 (07:22→17:11)
[2020-07-02] MEDS ORDERED: LIDOCAINE 1% MPF 5 ML VIAL ONE (07:23)
[2020-07-02] MEDS ORDERED: NITROGLYCERIN/D5W 25 MG/250 ML BTL IV ONE (07:23)
[2020-07-02] MEDS ORDERED: NITROGLYCERIN 100 MCG/ML SYR (for cath lab use only) IV ONE ×2 (07:23→17:11)
[2020-07-02] MEDS ORDERED: ATROPINE SULF 1 MG/10 ML SYR IV ONE ×2 (07:24→17:11)
[2020-07-02] MEDS ORDERED: NA CHLORIDE 0.9% 500 ML ONE (07:37)
[2020-07-02] MEDS ORDERED: FENTANYL CITR 100 MCG/2 ML ONE ×3 (08:12→17:11)
[2020-07-02] MEDS ORDERED: MIDAZOLAM HCL 2 MG/2 ML INJ ONE ×3 (08:12→17:11)
[2020-07-02] MEDS ORDERED: ACETYLCYST 20% 4 ML VIAL IH ONE (08:17)
[2020-07-02] MEDS ORDERED: NA CHLORIDE 0.9% 1,000 ML ONE ×2 (08:37→17:12)
[2020-07-02] MEDS ORDERED: CLOPIDOGREL 75 MG TABLET ONE (08:56)
[2020-07-02] MEDS ORDERED: HYDRALAZINE HCL 20 MG/ML VIAL ONE ×2 (08:57→09:04)
[2020-07-02] MEDS ORDERED: NITROGLYCERIN 0.4 MG/TAB SL ONE (09:01)
[2020-07-02] MEDS ORDERED: MORPHINE 4 MG/ML SYR ONE ×2 (09:06→10:11)
[2020-07-02] MEDS ORDERED: ONDANSETRON 4 MG/2 ML VIAL ONE ×3 (09:40→17:13)
[2020-07-02] MEDS ORDERED: ACETAMINOPHEN 325 MG TABLET ONE (10:08)
[2020-07-02 10:20] VITALS: TEMP 98.5
[2020-07-02] MEDS ORDERED: HYDROMORPHONE HCL 1 MG/ML INJ ONE (11:08)
[2020-07-02 16:05] VITALS: O2SAT 95
[2020-07-02] MEDS ORDERED: HEPA 1000U/500MLS 2,000 UNIT/1,000 ML BAG IV ONE (17:10)
[2020-07-02] MEDS ORDERED: LIDOCAINE 1% 20 ML MDV ONE (17:12)
[2020-07-02] MEDS ORDERED: HEPARIN/D5W 25,000 UNIT/500 ML BAG IV ONE (19:13)
[2020-07-02 19:23] LABS: Absolute Lymphocytes (CBC) 0.5 K/uL (0.7-4.9); Basophils % 0.5 % (0-1.3); Hematocrit 39.5 % (39.6-49.0); MPV 9.1 fL (7.6-11.3); RBC Red Blood Cell Count 4.49 M/uL (4.33-5.43)
[2020-07-02 19:26] LABS: Protime INR 0.99
[2020-07-02 20:08] VITALS: BP 119/59
[2020-07-02 20:20] LABS: Blood Morphology Comment NOT SEEN (NOT SEEN); Platelet Estimate ADEQ; White Blood Cell Scan OK (OK)
--- NOTE | 2020-07-03 00:40 | OP ---
Date of Procedure: 07/02/2020 Surgeon: UMM HARLEY Procedure Performed: 1.Balloon angioplasty of severe mid obtuse marginal branch stenosis using 2.5 x 12 mm NC balloon. 2.Balloon angioplasty of severe proximal left circumflex stenosis using 2.5 x 12 mm NC balloon. SIM I-3 flow before and after residual stenosis about 10% in both location. Stenosis was 80% in both loc ation originally. Length of the lesion is 10 mm in both locations. Indications: Unstable angina with no coronary artery disease. Access: Right radial artery 6-Moroccan, closed with TR band. Complications: None. Anesthesia: Total sedation time was 45 minutes. Description Of Procedure: After risks, benefits, alternatives were explained, the patient agreed to the procedure and signed informed consent and then we accessed right radial artery using pediatric mi cropuncture kit, inserted a 6-Moroccan slender sheath and then we took a 6-Moroccan EBU into the aortic r oot, engaged the left main coronary artery and we took a run-through wire into the left circumflex an d then we used 2.5 x 12 mm NC balloon and dilated the lesion of the OM and the left circ with good re sults, good flow, and no complications, no dissection. Tried to deliver a stent, however, due to sig nificant tortuosity could not deliver through the left main into the ostial circ and there was no Robert deLiner available to assist with this process. At this point, we decided to stop with the good resul ts of the angioplasty and reassess in 4 weeks. If symptoms continue to happen, we will attempt with stent deployment and probably help of the GuideLiner stent. Condition is stable at the end of the pr ocedure. We removed all the wires and catheters. We closed the access with TR band. 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 2.Loaded with Plavix 300 mg. Continue 75 mg along with 81 mg of aspirin and follow up in [address] discharge. SR/MODL Voice ID: [id number] Report ID: [id number]
--- NOTE | 2020-07-03 10:47 | EKG ---
Test Date: 2020-07-02 Test Time: 10:09:08 Biomedical Engineering Aide: CASSANDRA MEASUREMENT RESULTS: Intervals: Rate: 92 GA: 172 QRSD: 92 QT: 360 QTc: 445 [place]: P: 43 GA: 172 QRS: -34 T: 28 INTERPRETIVE STATEMENTS: Normal sinus rhythm Left axis deviation Abnormal ECG Compared to ECG 09/21/2019 15:55:06 Left-axis deviation now present Electronically Signed On 07-03-20 10:45:03 CDT by Ernst Hewitt
== END 2020-07-02 20:05 | disposition short-term general hospital (02) ==
LOC: CCL 07:13 → 4TH 15:51 → CCL 20:05
PROVIDERS: ATTEND Internal Medicine
DX: I25.110 Atherosclerotic heart disease of native coronary artery with unstable angina pectoris (principal); I10 Essential (primary) hypertension; E78.5 Hyperlipidemia, unspecified; G62.9 Polyneuropathy, unspecified; K21.9 Gastro-esophageal reflux disease without esophagitis; Z87.891 Personal history of nicotine dependence
CPT/HCPCS: 93005; 85025 ×2; 80048; 36415 ×2; 85610 ×2; 85347; 85730 ×2; 84484 ×2; 92920; 93454; C1893 ×2; C1725; J0360 ×2; J1644 ×7; J2250 ×3; J3010 ×2; J1170; J7040; J7030 ×2; J2405 ×3

== ENCOUNTER 2020-08-12 15:13 | Emergency (ER) | payer OTHER ==
--- OUTSIDE RECORDS SUMMARY | 2020-08-12 15:17 | XMS REPORT | Clinical Summary ---
:1960 Author Organization [facility] Address [address] [place] [address] Care Team Providers Name Role Phone Jpbarry Antonirubén Primary Care Provider Rohan Bishop Unavailable Allergies No Known Allergies Medications Medication Sig Dispensed Refills Start Date End Date Status pantoprazole Take 40 mg by mouth 0 Active (PROTONIX) 40 MG 2 (two) times tablet daily. gabapentin Take 1,200 mg by 0 Ac tive (NEURONTIN) 600 MG mouth 2 (two) times tablet daily . tamsulosin (FLOMAX) Take 1 capsule (0.4 30 capsule 2 0 Active 0.4 mg Cap 24 hr mg total) by mouth capsule daily No refills through my office. polyethylene glycol Use as needed per 0 07/18/2020 Active (GLYCOLAX) 17 gram package packet instructions for constipation. It is [id number].. Additional Information Patient not taking. Reported on 07/31/2020 1:23 PM folic acid (FOLVITE) 1 MG Take 1 tablet (1 mg 30 tablet 1 07/0507/18/2021 Active tablet total) by mouth daily No refills through my office. clopidogreL (PLAVIX) 75 Take 1 tablet (75 30 tablet 2 07/19/20 20 07/19/2021 Active mg tablet mg total) by mouth daily No refills through my office. aspirin 81 MG EC tablet Take 1 tablet (81 30 tablet 2 07/19/20 20 07/19/2021 Active mg total) by mouth daily No refills through my office. atorvastatin (LIPITOR) 40 Take 2 tablets (80 30 tablet 2 07/18 Active MG tablet mg total) by mouth daily No refills through my office. carvediloL (COREG) 12.5 Take 1 tablet (12.5 60 tablet 2 201907/18/2021 Active MG tablet mg total) by mouth 2 (two) times daily No refills through my office. Additional Information Patient taking differently: 12.5 mg Oral Daily, No refills through my office, Reason: Other, Reported on 07/31/2020 1:23 PM potassium chloride SA Take 1 tablet (20 mEq 60 tablet 2 2019 Active (K-DUR,KLOR-CON) 20 MEQ total) by mouth 2 tablet (two) times daily Take with your Lasix (furosemide). No refills through my office. furosemide (LASIX) 40 MG Take 1 tablet (40 mg 60 tablet 2 07/0507/18/20 Active tablet total) by mouth 2 21 (two) times daily No refills through my office. baclofen (LIORESAL) 20 MG Take 1 tablet (20 mg 0 Active tablet total) by mouth 3 (three) times daily Do not take if you are using [place] (hydrocodone). You have this at home. ferrous sulfate 325 (65 Take 1 tablet (325 mg 30 tablet 0 07/0507/18/20 Active FE) MG tablet total) by mouth daily 21 with lunch No refills through my office. amiodarone (PACERONE) 200 Take 2 tabs (400 mg) 50 tablet 0 Active MG tablet once tonight Oct 14, then begin on Jul 15 taking 1 tab twice a day for 7 days, then 1 tab daily. No refills through my office. Additional Information Patient taking differently: 200 mg Oral Daily, Take 2 tabs (400 mg) once tonight Oct 14, then begin on Jul 15 taking 1 tab twice a day for 7 days, then 1 tab daily. No refills through my office, Reason: Other, Reported on 07/31/2020 1:23 PM hydroCHLOROthiazide Take 25 mg by 0 05/25/2020 Active (HYDRODIURIL) 25 MG mouth daily. tablet atorvastatin (LIPITOR) 40 Take 40 mg by 0 07/18/ Discontinued MG tablet mouth daily. 2019 (Reorde r) metoprolol (LOPRESSOR) 25 Take 25 mg by 0 07/18/ Discontinued (Stop MG tablet mouth 2 (two) 2020 Taking at times daily. Dischar ge) amLODIPine (NORVASC) 10 Take 10 mg by 0 / Discontinued (Stop MG tablet mouth daily. 2020 Taking at Discharge) baclofen (LIORESAL) 20 MG Take 20 mg by 0 07/18/ Discontinued tablet mouth 3 2019 (Reorder) (three) times daily. meloxicam (MOBIC) 15 MG Take 15 mg by 0 / Discontinued tablet mouth daily. 2020 (Reorde r) aspirin 325 MG tablet Take 1 tablet 30 tablet 0 10/14/2019 (325 mg 2020 total) by mouth daily for 30 days. meloxicam (MOBIC) 15 MG Take 1 tablet 30 tablet 0 10/13/2019 0 tablet (15 mg total) 2020 by mouth daily for 30 days. meloxicam (MOBIC) 15 MG Take 15 mg by 0 / Discontinued (Stop tablet mouth daily. 2020 Taking at Discharge) HYDROcodone-acetaminophen Take 1 tablet 28 tablet 0 07/18/2020 (NORCO 10-325) 10-325 mg by mouth 2019 per tablet every 6 (six) hours as needed (Moderate to severe acute postop pain) for up to 7 days. Max Daily Amount: 4 tablets Active Problems Problem Noted Date PAF (paroxysmal atrial fibrillation) 07/18/2020 Acute blood loss anemia 07/18/2020 Acute diastolic CHF (congestive heart failure) 020 Acute on chronic diastolic (congestive) heart failure 07/18/2020 Other folate deficiency anemias 07/18/2020 S/P CABG x3 (Dr. Conklin 07/09/20) 07/09/2020 Coronary artery disease 07/02/2020 Arthritis of right knee 10/12/2019 Encounters Date Type Specialty Care Team Description 07/31/2020 Office Visit Transplant Tang Conklin Surgical MD Domenic follow-up care (Primary Dx) 07/31/2020 Hospital Encounter Radiology Christopher Serra PA 07/25/2020 EpicOnHand Encounter Internal Medicine Roshan Owen MD 07/25/2020 Telephone Cardiology Karen Booth, Medication Refill RN 07/19/2020 Orders Only Intensive Care Christopher Serra Coronary art KIMBERLEE Ybarra disease involvi ng [place] heart without angina pectoris, unspecified vessel or lesio n type 07/19/2020 Orders Only Intensive Care Chritsopher Serra Coronary art KIMBERLEE Ybarra disease involvi ng [place] heart without angina pectoris, unspecified vessel or lesio n type (Primary D x) 07/19/2020 Documentation Simin Louis RN 07/09/2020 Surgery Tang Conklin,AORTO MD Domenic CORONARY JOYCELYN/SV G 07/09/2020 Anesthesia Event Ochoa Kemp MD Wei, Elly Rios MD 07/04/2020 Surgery Drake Beaulieu R & L CATH / MD Tracy CORONARY ANGIOS / PCI 07/03/2020 Orders Only General Internal Medicine 07/02/2020 Hospital Encounter Cardiology Drake Beaulieu S/P C ABG x3 (Dr. Conklin 07/09/20) (Primary Dx); - MD Tracy Coronary artery disease involving [place] coronary artery of [place] heart with unstable angina pectoris (HCC) 07/18/2020 Tang Conklin MD Giveon, Ron, MD 07/02/2020 Travel 10/14/2019 Telephone Anesthesiology Rosie Carney Follow-up ELIAN Cole 10/12/2019 Surgery General Surgery Morales, ARTHROPLASTY ,KNEE Ernst FREDERICK Jr., MD 10/12/2019 Anesthesia Event General Surgery Wil Cota MD Rios, Nicolas Eduardo, MD 10/12/2019 Hospital Encounter General Internal Scar[place], - Medicine Ernst Fish 10/13/2019 MD Alisa 10/12/2019 Travel 10/04/2019 Hospital Encounter Pre-Admission Testing after 08/12/2019 Social History Tobacco Use Types Packs/Day Years [...] Assigned at Date Recorded Not on file Last Filed Vital Signs Vital Sign Reading Time Taken Comments Blood Pressure 130/84 07/31/2020 1:14 PM CDT Pulse 73 07/31/2020 1:14 PM CDT Temperature 36.4 C (97.6 F) 07/31/2020 1:14 PM CDT Respiratory Rate 20 07/31/2020 1:14 PM CDT Oxygen Saturation 95% 07/31/2020 1:14 PM CDT Inhaled Oxygen Concentration 80% 07/11/2020 12:20 PM CDT Weight 99.8 kg (220 lb) 07/31/2020 1:14 PM CDT Height 175.3 cm (5' 9") 07/31/2020 1:14 PM CDT Body Mass Index 32.49 07/31/2020 1:14 PM CDT Plan of Treatment Health Maintenance Due Date Last Done Comments COLON CANCER SCREENING COLONOSCOPY 1960 PNEUMOCOCCAL VACCINE 0-64 YRS (1 - 1964 PPSV23) Medicare IPPE (WELCOME TO MEDICARE) 10/05/2019 INFLUENZA VACCINE (#1) 2020 LIPID PANEL 07/06/2023 07/06/2020, 07/02/2020 Implants Implanted Type Area Assistant Signal Maintainer Device Shelf Model / Identifier Expiration Serial / Date Lot Jalil Bn Palacos R+G-40 G [id number] - [id number] IMPLANTS Right: HER AEUS:HERAEUS 02/01/2022 [id number] / Implanted: Qty: 2 on 10/12/2019 by Ernst Nolan Jr., MD at [facility] Knee KULZER / [id number] Pledget Bttrs Soft 9.5x4.8x1.5 Pcp40 - [id number] IMPLANTS Heart J &J:ETHICON 06/04/2024 PCP40 / Implanted: Qty: 1 on 07/09/2020 by Tang Higgins i, MD at [facility] / [id number] Description:Used as pledget with suture Tib Cemented Stem 5d Sz G R [id number] - [id number] TOTAL JOINT Right: CARYL:CARYL 05/04/2029 [id number] / Implanted: Qty: 1 on 10/12/2019 by Ernst Nolan Jr., MD at [facility] CONSTRUCT Knee / [id number] Fem Cemented Sz 10 R [id number] - [id number] TOTAL JOINT Right: CARYL:CARYL 10/04/2028 [id number] / Implanted: Qty: 1 on 10/12/2019 by Ernst Nolan Jr., MD at [facility] CONSTRUCT Knee / [id number] Ext Stem Psn Str Hyb 14x30 Mm [id number] - [id number] TOTAL JOINT Right: CARYL:CARYL US 09/03/2029 [id number] / Implanted: Qty: 1 on 10/12/2019 by Ernst Nolan Jr., MD at [facility] CONSTRUCT Knee / [id number] Persona The Personalized Knee System Hig hly Crosslinked Polyethylene Articular Surface Fixed Bearing Constrained Posterior Stabilized Right 10mm Height Right: Caryl 01/02/2023 [id number] / Implanted: Qty: 1 on 10/12/2019 by Ernst Nolan Jr., MD at [facility] Knee / [id number] Procedures Procedure Name Priority Date/Time Associated Diagnosis Comme nts XR CHEST 2 VIEWS Routine 07/31/2020 1:07 Coronary artery Resu lts for this PM CDT disease involving procedure are in [place] heart without the res ults angina pectoris, section. unspecified vessel or lesion type POCT-GLUCOSE METER Routine 07/18/2020 11:13 Resul ts for this AM CDT procedure are i n the results section. POCT-GLUCOSE METER Routine 07/18/2020 7:38 Resul ts for this AM CDT procedure are i n the results section. CBC W/PLT COUNT & Routine 07/18/2020 5:29 Result s for this AUTO DIFFERENTIAL AM CDT procedure are in the results section. MAGNESIUM Routine 07/18/2020 5:29 Results for this AM CDT procedure are i n the results section. CBC W/PLT COUNT & Routine 07/18/2020 5:29 Result s for this AUTO DIFFERENTIAL AM CDT procedure are in the results section. BASIC METABOLIC PANEL Routine 07/18/2020 5:29 Re sults for this (7) AM CDT procedure are i n the results section. XR CHEST 1 VIEW Routine 07/18/2020 5:13 Results for this PORTABLE/BEDSIDE AM CDT procedure a re in the results section. POCT-GLUCOSE METER Routine 07/17/2020 9:03 Resul ts for this PM CDT procedure are i n the results section. OSMOLALITY, SERUM Routine 07/17/2020 5:16 Result s for this PM CDT procedure are i n the results section. POCT-GLUCOSE METER Routine 07/17/2020 4:44 Resul ts for this PM CDT procedure are i n the results section. UREA NITROGEN, RANDOM Routine 07/17/2020 4:06 Re sults for this URINE PM CDT procedure are i n the results section. OSMOLALITY, URINE Routine 07/17/2020 4:06 Result s for this PM CDT procedure are i n the results section. POTASSIUM, RANDOM Routine 07/17/2020 4:06 Result s for this URINE PM CDT procedure are i n the results section. SODIUM, RANDOM URINE Routine 07/17/2020 4:06 Res ults for this PM CDT procedure are i n the results section. 2D ECHO W/ DOPPLER JOMAR 07/17/2020 3:57 Resul ts for this (CW/PW/COLOR) PM CDT procedure are in the results section. POCT-GLUCOSE METER Routine 07/17/2020 10:51 Resul ts for this AM CDT procedure are i n the results section. XR CHEST 1 VIEW Routine 07/17/2020 7:56 Results for this PORTABLE/BEDSIDE AM CDT procedure a re in the results section. POCT-GLUCOSE METER Routine 07/17/2020 7:30 Resul ts for this AM CDT procedure are i n the results section. CBC W/PLT COUNT & Routine 07/17/2020 5:42 Result s for this AUTO DIFFERENTIAL AM CDT procedure are in the results section. CBC W/PLT COUNT & Routine 07/17/2020 5:42 Result s for this AUTO DIFFERENTIAL AM CDT procedure are in the results section. MAGNESIUM Routine 07/17/2020 5:40 Results for this AM CDT procedure are i n the results section. BASIC METABOLIC PANEL Routine 07/17/2020 5:40 Re sults for this (7) AM CDT procedure are i n the results section. BLOOD GAS, ARTERIAL Routine 07/17/2020 5:20 Resu lts for this AM CDT procedure are i n the results section. POCT-GLUCOSE METER Routine 07/16/2020 9:14 Resul ts for this PM CDT procedure are i n the results section. POCT-GLUCOSE METER Routine 07/16/2020 5:30 Resul ts for this PM CDT procedure are i n the results section. IRON, TIBC, % SAT. Routine 07/16/2020 1:48 Resul ts for this (WITHOUT FERRITIN) PM CDT procedure are in the results section. FERRITIN Routine 07/16/2020 1:48 Results for this PM CDT procedure are i n the results section. VITAMIN B12 AND Routine 07/16/2020 1:48 Results for this FOLATE PM CDT procedure are i n the results section. POCT-GLUCOSE METER Routine 07/16/2020 11:18 Resul ts for this AM CDT procedure are i n the results section. XR CHEST 1 VIEW Routine 07/16/2020 9:16 Results for this PORTABLE/BEDSIDE AM CDT procedure a re in the results section. POCT-GLUCOSE METER Routine 07/16/2020 7:11 Resul ts for this AM CDT procedure are i n the results section. CBC W/PLT COUNT & Routine 07/16/2020 5:37 Result s for this AUTO DIFFERENTIAL AM CDT procedure are in the results section. MAGNESIUM Routine 07/16/2020 5:37 Results for this AM CDT procedure are i n the results section. CBC W/PLT COUNT & Routine 07/16/2020 5:37 Result s for this AUTO DIFFERENTIAL AM CDT procedure are in the results section. BASIC METABOLIC PANEL Routine 07/16/2020 5:37 Re sults for this (7) AM CDT procedure are i n the results section. POCT-GLUCOSE METER Routine 07/15/2020 10:26 Resul ts for this PM CDT procedure are i n the results section. POCT-GLUCOSE METER Routine 07/15/2020 4:49 Resul ts for this PM CDT procedure are i n the results section. POCT-GLUCOSE METER Routine 07/15/2020 11:10 Resul ts for this AM CDT procedure are i n the results section. POCT-GLUCOSE METER Routine 07/15/2020 7:41 Resul ts for this AM CDT procedure are i n the results section. XR CHEST 1 VIEW Routine 07/15/2020 7:11 Results for this PORTABLE/BEDSIDE AM CDT procedure a re in the results section. CBC W/PLT COUNT & Routine 07/15/2020 5:21 Result s for this AUTO DIFFERENTIAL AM CDT procedure are in the results section. MAGNESIUM Routine 07/15/2020 5:21 Results for this AM CDT procedure are i n the results section. CBC W/PLT COUNT & Routine 07/15/2020 5:21 Result s for this AUTO DIFFERENTIAL AM CDT procedure are in the results section. BASIC METABOLIC PANEL Routine 07/15/2020 5:21 Re sults for this (7) AM CDT procedure are i n the results section. POCT-GLUCOSE METER Routine 07/14/2020 9:36 Resul ts for this PM CDT procedure are i n the results section. XR CHEST 1 VIEW Routine 07/14/2020 4:39 Results for this PORTABLE/BEDSIDE AM CDT procedure a re in the results section. CBC W/PLT COUNT & Routine 07/14/2020 4:21 Result s for this AUTO DIFFERENTIAL AM CDT procedure are in the results section. MAGNESIUM Routine 07/14/2020 4:21 Results for this AM CDT procedure are i n the results section. CBC W/PLT COUNT & Routine 07/14/2020 4:21 Result s for this AUTO DIFFERENTIAL AM CDT procedure are in the results section. BASIC METABOLIC PANEL Routine 07/14/2020 4:21 Re sults for this (7) AM CDT procedure are i n the results section. POCT-GLUCOSE METER Routine 07/13/2020 9:26 Resul ts for this PM CDT procedure are i n the results section. XR CHEST 1 VIEW Routine 07/13/2020 5:12 Results for this PORTABLE/BEDSIDE AM CDT procedure a re in the results section. CBC W/PLT COUNT & Routine 07/13/2020 5:05 Result s for this AUTO DIFFERENTIAL AM CDT procedure are in the results section. MAGNESIUM Routine 07/13/2020 5:05 Results for this AM CDT procedure are i n the results section. CBC W/PLT COUNT & Routine 07/13/2020 5:05 Result s for this AUTO DIFFERENTIAL AM CDT procedure are in the results section. BASIC METABOLIC PANEL Routine 07/13/2020 5:05 Re sults for this (7) AM CDT procedure are i n the results section. TRANSFUSION SERVICE 07/12/2020 6:04 REPORT - SCAN PM CDT POCT-GLUCOSE METER Routine 07/12/2020 6:17 Resul ts for this AM CDT procedure are i n the results section. CBC W/PLT COUNT & Routine 07/12/2020 4:28 Result s for this AUTO DIFFERENTIAL AM CDT procedure are in the results section. MAGNESIUM Routine 07/12/2020 4:28 Results for this AM CDT procedure are i n the results section. CBC W/PLT COUNT & Routine 07/12/2020 4:28 Result s for this AUTO DIFFERENTIAL AM CDT procedure are in the results section. BASIC METABOLIC PANEL Routine 07/12/2020 4:28 Re sults for this (7) AM CDT procedure are i n the results section. BLOOD GAS, ARTERIAL Routine 07/12/2020 4:28 Resu lts for this AM CDT procedure are i n the results section. XR CHEST 1 VIEW Routine 07/12/2020 1:58 Results for this PORTABLE/BEDSIDE AM CDT procedure a re in the results section. PREPARE LEUKO-REDUCED Routine 07/11/2020 11:54 Re sults for this RBC PM CDT procedure are i n the results section. POCT-GLUCOSE METER Routine 07/11/2020 11:24 Resul ts for this PM CDT procedure are i n the results section. TRANSFUSION SERVICE 07/11/2020 6:04 REPORT - SCAN PM CDT POCT-GLUCOSE METER Routine 07/11/2020 6:01 Resul ts for this PM CDT procedure are i n the results section. VASCULAR DIAGRAM 07/11/2020 3:21 -SCAN PM CDT ECG 12-LEAD Routine 07/11/2020 1:32 PM CDT Procedure Note - Interface, External Ris In - 07/16/2020 7:52 PM CDT Ventricular Rate 80 BPM Atrial Rate 80 BPM P-R Interval 206 ms QRS Duration 80 ms Q-T Interval 390 ms QTC Calculation(Bazett) 449 ms P [place] 33 degrees R [place] -2 degrees T [place] -7 degrees Normal sinus rhythm Normal ECG When compared with ECG of 11:12, Sinus rhythm has replaced At [facility] fibrillation Vent. rate has decreased BY [address] elevation now present in Lateral leads ECG 12-LEAD Routine 07/11/2020 1:32 PM CDT Resu lts for this procedure are i n the results section . BLOOD GAS, ARTERIAL Routine 07/11/2020 11:37 AM CDT Results for this procedure are i n the results section . MAGNESIUM Routine 07/11/2020 11:37 AM CDT Resu lts for this procedure are i n the results section . BASIC METABOLIC PANEL (7) Routine 07/11/2020 11:37 AM CDT Results for this procedure are i n the results section . POCT-GLUCOSE METER Routine 07/11/2020 11:36 AM CDT Results for this procedure are i n the results section . OXYGEN SATURATION, MEASURED STAT 07/11/2020 7:03 AM CDT Results for this procedure are i n the results section . BLOOD GAS, ARTERIAL STAT 07/11/2020 7:03 AM CDT Results for this procedure are i n the results section . POCT-GLUCOSE METER Routine 07/11/2020 5:24 AM CDT Results for this procedure are i n the results section . BLOOD GAS, ARTERIAL Routine 07/11/2020 3:16 AM CDT Results for this procedure are i n the results section . CBC (HEMOGRAM ONLY) Routine 07/11/2020 3:16 AM CDT Results for this procedure are i n the results section . PHOSPHORUS Routine 07/11/2020 3:16 AM CDT Resu lts for this procedure are i n the results section . MAGNESIUM Routine 07/11/2020 3:16 AM CDT Resu lts for this procedure are i n the results section . BASIC METABOLIC PANEL (7) Routine 07/11/2020 3:16 AM CDT Results for this procedure are i n the results section . XR CHEST 1 VIEW Routine 07/11/2020 2:30 AM CDT R esults for this PORTABLE/BEDSIDE procedure a re in the results section . POCT-GLUCOSE METER Routine 07/10/2020 11:56 PM CDT Results for this procedure are i n the results section . PREPARE PLATELETS STAT 07/10/2020 11:54 PM CDT Results for this procedure are i n the results section . TRANSFUSION SERVICE REPORT 07/10/2020 6:23 PM CDT - SCAN BLOOD GAS, ARTERIAL Routine 07/10/2020 5:58 PM CDT Results for this procedure are i n the results section . POCT-GLUCOSE METER Routine 07/10/2020 5:57 PM CDT Results for this procedure are i n the results section . MAGNESIUM STAT 07/10/2020 12:31 PM CDT Resu lts for this procedure are i n the results section . BASIC METABOLIC PANEL (7) STAT 07/10/2020 12:31 PM CDT Results for this procedure are i n the results section . OXYGEN SATURATION, MEASURED STAT 07/10/2020 12:31 PM CDT Results for this procedure are i n the results section . BLOOD GAS, ARTERIAL STAT 07/10/2020 12:31 PM CDT Results for this procedure are i n the results section . ECG 12-LEAD Routine 07/10/2020 11:12 AM CDT Procedure Note - Interface, External Ris In - 07/16/2020 7:44 PM CDT Ventricular Rate 153 BPM Atrial Rate 153 BPM QRS Duration 72 ms Q-T Interval 248 ms QTC Calculation(Bazett) 395 ms R [place] -3 degrees T [place] 6 degrees Atrial fibrillation with rap id ventricular response Abnormal ECG When compared with ECG of 06:17, Atrial fibrillation has repl aced Sinus rhythm Vent. rate has increased BY [address] elevation now present in Anterior leads Nonspecific T wave abnormali ty, improved in Lateral leads ECG 12-LEAD STAT 07/10/2020 11:12 AM CDT Resu lts for this procedure are in the resu lts section. BLOOD GAS, ARTERIAL JOMAR 07/10/2020 9:54 AM CDT Results for this procedure are in the resu lts section. BLOOD GAS, ARTERIAL STAT 07/10/2020 7:32 AM CDT Results for this procedure are in the resu lts section. BLOOD GAS, ARTERIAL Routine 07/10/2020 5:58 AM CDT Results for this procedure are in the resu lts section. LACTIC ACID, ARTERIAL Routine 07/10/2020 5:57 AM CDT Results for this procedure are in the resu lts section. POCT-GLUCOSE METER Routine 07/10/2020 5:48 AM CDT Results for this procedure are in the resu lts section. ECG 12-LEAD Routine 07/10/2020 5:28 AM CDT Procedure Note - Interface, External Ris In - 07/16/2020 7:44 PM CDT Ventricular Rate 101 BPM Atrial Rate 101 BPM P-R Interval 198 ms QRS Duration 76 ms Q-T Interval 340 ms QTC Calculation(Bazett) 440 ms P [place] 36 degrees R [place] -12 degrees T [place] 18 degrees Sinus tachycardia Otherwise normal ECG When compared with ECG of 06:17, ST elevation now present in Anterior leads Nonspecific T wave abnormali ty no longer evident in Anterolateral leads ECG 12-LEAD Routine 07/10/2020 5:28 AM CDT Resu lts for this procedure are i n the results section . OXYGEN SATURATION, Routine 07/10/2020 3:24 AM CDT Results for this MEASURED procedure are i n the results section . CBC (HEMOGRAM ONLY) Routine 07/10/2020 3:24 AM CDT Results for this procedure are i n the results section . PHOSPHORUS Routine 07/10/2020 3:24 AM CDT Resu lts for this procedure are i n the results section . MAGNESIUM Routine 07/10/2020 3:24 AM CDT Resu lts for this procedure are i n the results section . BASIC METABOLIC PANEL (7) Routine 07/10/2020 3:24 AM CDT Results for this procedure are i n the results section . LACTIC ACID, ARTERIAL Routine 07/10/2020 3:24 AM CDT Results for this procedure are i n the results section . BLOOD GAS, ARTERIAL Routine 07/10/2020 3:24 AM CDT Results for this procedure are i n the results section . TRANSFUSE LEUKO-REDUCED Routine 07/10/2020 3:02 AM CDT RED BLOOD CELLS XR CHEST 1 VIEW Routine 07/10/2020 2:38 AM CDT R esults for this PORTABLE/BEDSIDE procedure a re in the results section . LACTIC ACID, ARTERIAL Routine 07/10/2020 12:17 AM CDT Results for this procedure are i n the results section . BLOOD GAS, ARTERIAL Routine 07/10/2020 12:17 AM CDT Results for this procedure are i n the results section . POCT-GLUCOSE METER Routine 07/10/2020 12:08 AM CDT Results for this procedure are i n the results section . HGB/HCT (H&H) - STAT LAB STAT 07/09/2020 10:50 PM CDT Results for this procedure are i n the results section . GLUCOSE-STAT LAB STAT 07/09/2020 10:50 PM CDT Results for this procedure are i n the results section . POTASSIUM-STAT LAB STAT 07/09/2020 10:50 PM CDT Results for this procedure are i n the results section . SODIUM NA-STAT LAB STAT 07/09/2020 10:50 PM CDT Results for this procedure are i n the results section . BLOOD GAS, ARTERIAL STAT 07/09/2020 10:50 PM CDT Results for this procedure are i n the results section . LACTIC ACID, ARTERIAL STAT 07/09/2020 10:50 PM CDT Results for this procedure are i n the results section . RRL CRITICAL LABS STAT 07/09/2020 10:50 PM CDT Results for this (ABG,NA,K,H&H,GLUCOSE) proce dure are in the results section . OXYGEN SATURATION, STAT 07/09/2020 10:50 PM CDT Results for this MEASURED procedure are i n the results section . BASIC METABOLIC PANEL (7) Routine 07/09/2020 10:50 PM CDT Results for this procedure are i n the results section . PHOSPHORUS Routine 07/09/2020 10:50 PM CDT Resu lts for this procedure are i n the results section . MAGNESIUM Routine 07/09/2020 10:50 PM CDT Resu lts for this procedure are i n the results section . CALCIUM, IONIZED Routine 07/09/2020 10:50 PM CDT Results for this procedure are i n the results section . BLOOD GAS, ARTERIAL Routine 07/09/2020 9:30 PM CDT Results for this procedure are i n the results section . POTASSIUM Routine 07/09/2020 8:57 PM CDT Resu lts for this procedure are i n the results section . ECG 12-LEAD Routine 07/09/2020 8:27 PM CDT Procedure Note - Interface, External Ris In - 07/16/2020 7:50 PM CDT Ventricular Rate 53 BPM Atrial Rate 53 BPM P-R Interval 204 ms QRS Duration 86 ms Q-T Interval 430 ms QTC Calculation(Bazett) 403 ms P [place] 15 degrees R [place] -4 degrees [place] -8 degrees Sinus bradycardia Otherwise normal ECG When compared with ECG of 20:25, Sinus rhythm has replaced At ria fibrillation Vent. rate has decreased BY 120 BPM Questionable change in QRS d uration ECG 12-LEAD STAT 07/09/2020 8:27 PM CDT Resu lts for this procedure are in the results section . ECG 12-LEAD Routine 07/09/2020 8:25 PM CDT Procedure Note - Interface, External Ris In - 07/16/2020 7:50 PM CDT Ventricular Rate 173 BPM Atrial Rate 170 BPM QRS Duration 164 ms Q-T Interval 278 ms QTC Calculation(Bazett) 471 ms R [place] 221 degrees T [place] 229 degrees Poor data quality, interp retation may be adversely affected Atrial fibrillation with rap id ventricular response Right superior axis deviatio n Left ventricular hypertrophy with QRS widening Abnormal ECG When compared with ECG of 06:17, Atrial fibrillation has repl aced Sinus rhythm Vent. rate has increased BY 89 BPM Questionable change in QRS d uration HEMOGLOBIN AND HEMATOCRIT Routine 07/09/2020 7:28 PM CDT Results for this procedure are i n the results section . LACTIC ACID, ARTERIAL Routine 07/09/2020 7:28 PM CDT Results for this procedure are i n the results section . POCT-GLUCOSE METER Routine 07/09/2020 7:26 PM CDT Results for this procedure are i n the results section . PREPARE PLASMA STAT 07/09/2020 7:12 PM CDT Re sults for this procedure are i n the results section . PREPARE RBC STAT 07/09/2020 7:12 PM CDT Resu lts for this procedure are i n the results section . TROPONIN I STAT 07/09/2020 6:02 PM CDT Resu lts for this procedure are i n the results section . PHOSPHORUS STAT 07/09/2020 6:02 PM CDT Resu lts for this procedure are i n the results section . MAGNESIUM STAT 07/09/2020 6:02 PM CDT Resu lts for this procedure are i n the results section . BLOOD GAS, ARTERIAL STAT 07/09/2020 6:02 PM CDT Results for this procedure are i n the results section . BASIC METABOLIC PANEL (7) STAT 07/09/2020 6:02 PM CDT Results for this procedure are i n the results section . POCT-GLUCOSE METER Routine 07/09/2020 6:01 PM CDT Results for this procedure are i n the results section . LACTIC ACID, ARTERIAL Routine 07/09/2020 5:55 PM CDT Results for this procedure are i n the results section . ECG 12-LEAD Routine 07/09/2020 3:58 PM CDT Procedure Note - Interface, External Ris In - 07/16/2020 7:51 PM CDT Ventricular Rate 57 BPM Atrial Rate 57 BPM P-R Interval 202 ms QRS Duration 78 ms Q-T Interval 456 ms QTC Calculation(Bazett) 443 ms P [place] 32 degrees R [place] -9 degrees T [place] -3 degrees Sinus bradycardia Otherwise normal ECG When compared with ECG of 06:17, T wave inversion now evident in Inferior leads Nonspecific T wave abnormali ty no longer evident in Anterolateral leads ECG 12-LEAD STAT 07/09/2020 3:58 Results for this PM CDT procedure are i n the results section. XR CHEST 1 VIEW STAT 07/09/2020 3:55 Results for this PORTABLE/BEDSIDE PM CDT procedure a re in the results section. (CELLAVISION MANUAL STAT 07/09/2020 3:36 Resu lts for this DIFF) PM CDT procedure are i n the results section. CBC W/PLT COUNT & STAT 07/09/2020 3:36 Result s for this AUTO DIFFERENTIAL PM CDT procedure are in the results section. HGB/HCT (H&H) - STAT STAT 07/09/2020 3:36 Res ults for this LAB PM CDT procedure are i n the results section. GLUCOSE-STAT LAB STAT 07/09/2020 3:36 Results for this PM CDT procedure are i n the results section. POTASSIUM-STAT LAB STAT 07/09/2020 3:36 Resul ts for this PM CDT procedure are i n the results section. SODIUM NA-STAT LAB STAT 07/09/2020 3:36 Resul ts for this PM CDT procedure are i n the results section. OXYGEN SATURATION, STAT 07/09/2020 3:36 Resul ts for this MEASURED PM CDT procedure are i n the results section. BLOOD GAS, ARTERIAL STAT 07/09/2020 3:36 Resu lts for this PM CDT procedure are i n the results section. RRL CRITICAL LABS STAT 07/09/2020 3:36 Result s for this (ABG,NA,K,H&H,GLUCOS PM CDT procedu re are in E) the results section. FIBRINOGEN STAT 07/09/2020 3:36 Results for this PM CDT procedure are i n the results section. APTT STAT 07/09/2020 3:36 Results for this PM CDT procedure are i n the results section. PROTHROMBIN TIME/INR STAT 07/09/2020 3:36 Res ults for this PM CDT procedure are i n the results section. LACTIC ACID, STAT 07/09/2020 3:36 Results for this ARTERIAL PM CDT procedure are i n the results section. CALCIUM, IONIZED STAT 07/09/2020 3:36 Results for this PM CDT procedure are i n the results section. PHOSPHORUS STAT 07/09/2020 3:36 Results for this PM CDT procedure are i n the results section. MAGNESIUM STAT 07/09/2020 3:36 Results for this PM CDT procedure are i n the results section. BASIC METABOLIC STAT 07/09/2020 3:36 Results for this PANEL (7) PM CDT procedure are i n the results section. CBC W/PLT COUNT & STAT 07/09/2020 3:36 Result s for this AUTO DIFFERENTIAL PM CDT procedure are in the results section. POCT-ACT Routine 07/09/2020 2:21 Results for this PM CDT procedure are i n the results section. HGB/HCT (H&H) - STAT STAT 07/09/2020 2:14 Res ults for this LAB PM CDT procedure are i n the results section. GLUCOSE-STAT LAB STAT 07/09/2020 2:14 Results for this PM CDT procedure are i n the results section. POTASSIUM-STAT LAB STAT 07/09/2020 2:14 Resul ts for this PM CDT procedure are i n the results section. SODIUM NA-STAT LAB STAT 07/09/2020 2:14 Resul ts for this PM CDT procedure are i n the results section. BLOOD GAS, ARTERIAL STAT 07/09/2020 2:14 Resu lts for this PM CDT procedure are i n the results section. PLATELET COUNT STAT 07/09/2020 2:14 Results f or this PM CDT procedure are i n the results section. CALCIUM, IONIZED STAT 07/09/2020 2:14 Results for this PM CDT procedure are i n the results section. RRL CRITICAL LABS STAT 07/09/2020 2:14 Result s for this (ABG,NA,K,H&H,GLUCOS PM CDT procedu re are in E) the results section. CBC W/PLT COUNT & Routine 07/09/2020 2:14 Result s for this AUTO DIFFERENTIAL PM CDT procedure are in the results section. CBC W/PLT COUNT & STAT Add-on 07/09/2020 2:14 Result s for this AUTO DIFFERENTIAL PM CDT procedure are in the results section. TRANSFUSE Routine 07/09/2020 1:59 LEUKO-REDUCED PM CDT PLATELETS TRANSFUSE Routine 07/09/2020 1:59 LEUKO-REDUCED PM CDT PLATELETS POCT-ACT Routine 07/09/2020 1:16 Results for this PM CDT procedure are i n the results section. POCT-ACT Routine 07/09/2020 1:04 Results for this PM CDT procedure are i n the results section. HGB/HCT (H&H) - STAT STAT 07/09/2020 12:58 Res ults for this LAB PM CDT procedure are i n the results section. GLUCOSE-STAT LAB STAT 07/09/2020 12:58 Results for this PM CDT procedure are i n the results section. POTASSIUM-STAT LAB STAT 07/09/2020 12:58 Resul ts for this PM CDT procedure are i n the results section. SODIUM NA-STAT LAB STAT 07/09/2020 12:58 Resul ts for this PM CDT procedure are i n the results section. BLOOD GAS, ARTERIAL STAT 07/09/2020 12:58 Resu lts for this PM CDT procedure are i n the results section. RRL CRITICAL LABS STAT 07/09/2020 12:58 Result s for this (ABG,NA,K,H&H,GLUCOS PM CDT procedu re are in E) the results section. POCT-ACT Routine 07/09/2020 12:39 Results for this PM CDT procedure are i n the results section. HGB/HCT (H&H) - STAT STAT 07/09/2020 12:29 Res ults for this LAB PM CDT procedure are i n the results section. GLUCOSE-STAT LAB STAT 07/09/2020 12:29 Results for this PM CDT procedure are i n the results section. POTASSIUM-STAT LAB STAT 07/09/2020 12:29 Resul ts for this PM CDT procedure are i n the results section. SODIUM NA-STAT LAB STAT 07/09/2020 12:29 Resul ts for this PM CDT procedure are i n the results section. BLOOD GAS, ARTERIAL STAT 07/09/2020 12:29 Resu lts for this PM CDT procedure are i n the results section. RRL CRITICAL LABS STAT 07/09/2020 12:29 Result s for this (ABG,NA,K,H&H,GLUCOS PM CDT procedu re are in E) the results section. HGB/HCT (H&H) - STAT STAT 07/09/2020 11:58 Res ults for this LAB AM CDT procedure are i n the results section. GLUCOSE-STAT LAB STAT 07/09/2020 11:58 Results for this AM CDT procedure are i n the results section. POTASSIUM-STAT LAB STAT 07/09/2020 11:58 Resul ts for this AM CDT procedure are i n the results section. SODIUM NA-STAT LAB STAT 07/09/2020 11:58 Resul ts for this AM CDT procedure are i n the results section. BLOOD GAS, ARTERIAL STAT 07/09/2020 11:58 Resu lts for this AM CDT procedure are i n the results section. RRL CRITICAL LABS STAT 07/09/2020 11:58 Result s for this (ABG,NA,K,H&H,GLUCOS AM CDT procedu re are in E) the results section. POCT-ACT Routine 07/09/2020 11:34 Results for this AM CDT procedure are i n the results section. HGB/HCT (H&H) - STAT STAT 07/09/2020 11:30 Res ults for this LAB AM CDT procedure are i n the results section. GLUCOSE-STAT LAB STAT 07/09/2020 11:30 Results for this AM CDT procedure are i n the results section. POTASSIUM-STAT LAB STAT 07/09/2020 11:30 Resul ts for this AM CDT procedure are i n the results section. SODIUM NA-STAT LAB STAT 07/09/2020 11:30 Resul ts for this AM CDT procedure are i n the results section. BLOOD GAS, ARTERIAL STAT 07/09/2020 11:30 Resu lts for this AM CDT procedure are i n the results section. RRL CRITICAL LABS STAT 07/09/2020 11:30 Result s for this (ABG,NA,K,H&H,GLUCOS AM CDT procedu re are in E) the results section. POCT-ACT Routine 07/09/2020 10:59 Results for this AM CDT procedure are i n the results section. BLOOD GAS, ARTERIAL STAT 07/09/2020 10:58 Resu lts for this AM CDT procedure are i n the results section. ANESTHESIA JOHN Routine 07/09/2020 10:45 Results f or this AM CDT procedure are i n the results section. POCT-ACT Routine 07/09/2020 10:39 Results for this AM CDT procedure are i n the results section. POCT-ACT Routine 07/09/2020 9:19 Results for this AM CDT procedure are i n the results section. HGB/HCT (H&H) - STAT STAT 07/09/2020 8:51 Res ults for this LAB AM CDT procedure are i n the results section. GLUCOSE-STAT LAB STAT 07/09/2020 8:51 Results for this AM CDT procedure are i n the results section. POTASSIUM-STAT LAB STAT 07/09/2020 8:51 Resul ts for this AM CDT procedure are i n the results section. SODIUM NA-STAT LAB STAT 07/09/2020 8:51 Resul ts for this AM CDT procedure are i n the results section. BLOOD GAS, ARTERIAL STAT 07/09/2020 8:51 Resu lts for this AM CDT procedure are i n the results section. CALCIUM, IONIZED STAT 07/09/2020 8:51 Results for this AM CDT procedure are i n the results section. RRL CRITICAL LABS STAT 07/09/2020 8:51 Result s for this (ABG,NA,K,H&H,GLUCOS AM CDT procedu re are in E) the results section. JOHN,3D 07/09/2020 7:48 Coronary artery AM CDT disease with angina pectoris, unspecified vessel or lesion type, unspecified whether [place] or transplanted heart (HCC) ENDOSCOPIC 07/09/2020 7:48 Coronary artery HARVEST,VEIN AM CDT disease with angina pectoris, unspecified vessel or lesion type, unspecified whether [place] or transplanted heart ([facility]) BYPASS,AORTO 07/09/2020 7:48 Coronary artery CORONARY JOYCELYN/SVG AM CDT disease with angina pectoris, unspecified vessel or lesion type, unspecified whether [place] or transplanted heart ([facility]) CBC W/PLT COUNT & Routine 07/09/2020 4:11 Result s for this AUTO DIFFERENTIAL AM CDT procedure are in the results section. APTT Routine 07/09/2020 4:11 Results for this AM CDT procedure are i n the results section. MAGNESIUM Routine 07/09/2020 4:11 Results for this AM CDT procedure are i n the results section. BASIC METABOLIC Routine 07/09/2020 4:11 Results for this PANEL (7) AM CDT procedure are i n the results section. CBC W/PLT COUNT & Routine 07/09/2020 4:11 Result s for this AUTO DIFFERENTIAL AM CDT procedure are in the results section. TYPE AND SCREEN, Routine 07/09/2020 3:51 Results for this AUTOMATED AM CDT procedure are i n the results section. SARS-COV2/RT-PCR STAT 07/08/2020 2:56 Results for this ([facility]) PM CDT procedure are in the results section. PLATELET AP Routine 07/08/2020 12:08 Results for this AGGREGATION: PM CDT procedure are i n FUNCTION SCREEN the results section. CBC W/PLT COUNT & Routine 07/08/2020 3:00 Result s for this AUTO DIFFERENTIAL AM CDT procedure are in the results section. CBC W/PLT COUNT & Routine 07/08/2020 3:00 Result s for this AUTO DIFFERENTIAL AM CDT procedure are in the results section. MAGNESIUM Routine 07/08/2020 3:00 Results for this AM CDT procedure are i n the results section. BASIC METABOLIC Routine 07/08/2020 3:00 Results for this PANEL (7) AM CDT procedure are i n the results section. APTT Routine 07/08/2020 3:00 Results for this AM CDT procedure are i n the results section. TRANSFUSION SERVICE 07/07/2020 6:01 REPORT - SCAN PM CDT ECG 12-LEAD Routine 07/07/2020 6:17 AM CDT Procedure Note - Interface, External Ris In - 07/07/2020 6:21 AM CDT Ventricular Rate 84 BPM Atrial Rate 84 BPM P-R Interval 194 ms QRS Duration 90 ms Q-T Interval 348 ms QTC Calculation(Bazett) 411 ms P [place] 62 degrees R [place] -25 degrees T [place] 49 degrees Normal sinus rhythm Nonspecific T wave abnormali ty Abnormal ECG When compared with ECG of 14:20, T wave inversion no longer e vident in Inferior leads Nonspecific T wave abnormali ty, improved in Anterior leads QT has shortened ECG 12-LEAD Routine 07/07/2020 6:17 Results for this AM CDT procedure are i n the results section. BASIC METABOLIC PANEL Routine 07/07/2020 4:51 Re sults for this (7) AM CDT procedure are i n the results section. MAGNESIUM Routine 07/07/2020 4:51 Results for this AM CDT procedure are i n the results section. APTT Routine 07/07/2020 4:51 Results for this AM CDT procedure are i n the results section. CBC W/PLT COUNT & AUTO Routine 07/06/2020 9:48 R esults for this DIFFERENTIAL PM CDT procedure are i n the results section. TYPE AND SCREEN, Routine 07/06/2020 9:48 Results for this AUTOMATED PM CDT procedure are i n the results section. APTT Routine 07/06/2020 9:48 Results for this PM CDT procedure are i n the results section. PROTHROMBIN TIME/INR Routine 07/06/2020 9:48 Res ults for this PM CDT procedure are i n the results section. CBC W/PLT COUNT & AUTO Routine 07/06/2020 9:48 R esults for this DIFFERENTIAL PM CDT procedure are i n the results section. LIPID PANEL Routine 07/06/2020 9:48 Results for this PM CDT procedure are i n the results section. HEMOGLOBIN A1C Routine 07/06/2020 9:48 Results f or this PM CDT procedure are i n the results section. COMPREHENSIVE Routine 07/06/2020 9:48 Results fo r this METABOLIC PANEL PM CDT procedure ar e in the results section. MAGNESIUM Routine 07/06/2020 9:48 Results for this PM CDT procedure are i n the results section. PLATELET AGGREGATION: STAT 07/06/2020 3:46 Re sults for this FUNCTION SCREEN PM CDT procedure ar e in the results section. ECG 12-LEAD Routine 07/06/2020 2:20 Results for this PM CDT procedure are i n the results section. CBC W/PLT COUNT & AUTO Routine 07/06/2020 4:24 R esults for this DIFFERENTIAL AM CDT procedure are i n the results section. PT/APTT Routine 07/06/2020 4:24 Results for this AM CDT procedure are i n the results section. MAGNESIUM Routine 07/06/2020 4:24 Results for this AM CDT procedure are i n the results section. BASIC METABOLIC PANEL Routine 07/06/2020 4:24 Re sults for this (7) AM CDT procedure are i n the results section. CBC W/PLT COUNT & AUTO Routine 07/06/2020 4:24 R esults for this DIFFERENTIAL AM CDT procedure are i n the results section. CBC W/PLT COUNT & AUTO Routine 07/05/2020 5:13 R esults for this DIFFERENTIAL AM CDT procedure are i n the results section. APTT Routine 07/05/2020 5:13 Results for this AM CDT procedure are i n the results section. CBC W/PLT COUNT & AUTO Routine 07/05/2020 5:13 R esults for this DIFFERENTIAL AM CDT procedure are i n the results section. MAGNESIUM Routine 07/05/2020 5:13 Results for this AM CDT procedure are i n the results section. BASIC METABOLIC PANEL Routine 07/05/2020 5:13 Re sults for this (7) AM CDT procedure are i n the results section. APTT Routine 07/04/2020 10:03 Results for this PM CDT procedure are i n the results section. VEIN MAPPING LEGS Routine 07/04/2020 6:33 Result s for this BILATERAL PM CDT procedure are i n the results section. CAROTID DOPPLER Routine 07/04/2020 6:33 Results for this BILATERAL PM CDT procedure are i n the results section. POCT-ACT Routine 07/04/2020 11:55 Results for this AM CDT procedure are i n the results section. PCI & IVUS 07/04/2020 10:55 Coronary artery AM CDT disease with angina pectoris, unspecified vessel or lesion type, unspecified whether [place] or transplanted heart (HCC) Case Notes 6S1-01 R & L CATH / CORONARY 07/04/2020 10:55 AM CDT Coronary artery disease with ANGIOS / PCI angina pectoris, unspecified vessel or lesion type, unspecified whether [place] o r transplanted heart ([facility]) Case Notes 6S1-01 PLATELET AGGREGATION: JOMAR 07/04/2020 8:43 AM CDT Results for this FUNCTION SCREEN procedure ar e in the results section . CBC W/PLT COUNT & AUTO Routine 07/04/2020 3:51 AM CDT Results for this DIFFERENTIAL procedure are i n the results section . APTT Routine 07/04/2020 3:51 AM CDT Resu lts for this procedure are i n the results section . CBC W/PLT COUNT & AUTO Routine 07/04/2020 3:51 AM CDT Results for this DIFFERENTIAL procedure are i n the results section . MAGNESIUM Routine 07/04/2020 3:51 AM CDT Resu lts for this procedure are i n the results section . BASIC METABOLIC PANEL (7) Routine 07/04/2020 3:51 AM CDT Results for this procedure are i n the results section . MAGNESIUM Routine 07/03/2020 5:00 PM CDT Resu lts for this procedure are i n the results section . APTT Routine 07/03/2020 5:00 PM CDT Resu lts for this procedure are i n the results section . POTASSIUM Routine 07/03/2020 5:00 PM CDT Resu lts for this procedure are i n the results section . 2D ECHO W/ DOPPLER STAT 07/03/2020 12:47 PM CDT Results for this (CW/PW/COLOR) procedure are in the results section . MAGNESIUM Routine 07/03/2020 12:17 PM CDT Resu lts for this procedure are i n the results section . POTASSIUM Routine 07/03/2020 12:17 PM CDT Resu lts for this procedure are i n the results section . NM MYOCARDIAL PERFUSION JOMAR 07/03/2020 11:20 AM CDT Results for this PET/CT (REST & STRESS) proce dure are in the results section . TREADMILL Routine 07/03/2020 11:05 AM CDT Resu lts for this TOLERANCE(NON-NUCLEAR proced ure are in the TREADMILL) results section . ECG 12-LEAD Routine 07/03/2020 11:02 AM CDT Procedure Note - Interface, External Ris In - 07/03/2020 11:23 AM CDT Ventricular Rate 64 BPM Atrial Rate 64 BPM P-R Interval 204 ms QRS Duration 94 ms Q-T Interval 438 ms QTC Calculation(Bazett) 451 ms P [place] 74 degrees R [place] 60 degrees T [place] 49 degrees Normal sinus rhythm Normal ECG ECG 12-LEAD Routine 07/03/2020 11:02 AM CDT Resu lts for this procedure are i n the results section . APTT Routine 07/03/2020 9:49 AM CDT Resu lts for this procedure are i n the results section . TROPONIN I Routine 07/03/2020 9:49 AM CDT Resu lts for this procedure are i n the results section . CBC W/PLT COUNT & AUTO Routine 07/03/2020 3:30 AM CDT Results for this DIFFERENTIAL procedure are i n the results section . APTT Routine 07/03/2020 3:30 AM CDT Resu lts for this procedure are i n the results section . BLOOD GAS, VENOUS Routine 07/03/2020 3:30 AM CDT Results for this procedure are i n the results section . LACTIC ACID, VENOUS Routine 07/03/2020 3:30 AM CDT Results for this procedure are i n the results section . CBC W/PLT COUNT & AUTO Routine 07/03/2020 3:30 AM CDT Results for this DIFFERENTIAL procedure are i n the results section . MAGNESIUM Routine 07/03/2020 3:30 AM CDT Resu lts for this procedure are i n the results section . BASIC METABOLIC PANEL (7) Routine 07/03/2020 3:30 AM CDT Results for this procedure are i n the results section . TROPONIN I Timed 07/03/2020 3:30 AM CDT Resu lts for this procedure are i n the results section . LACTIC ACID, VENOUS Routine 07/02/2020 10:38 PM CDT Results for this procedure are i n the results section . SARS-COV2/RT-PCR ([facility] & JOMAR 07/02/2020 9:49 PM CDT Results for this REF LABS) procedure are i n the results section . ECG 12-LEAD Routine 07/02/2020 9:46 PM CDT Resu lts for this procedure are i n the results section . ECG 12-LEAD Routine 07/02/2020 9:46 PM CDT Procedure Note - Interface, External Ris In - 07/04/2020 10:18 AM CDT Ventricular Rate 79 BPM Atrial Rate 79 BPM P-R Interval 204 ms QRS Duration 86 ms Q-T Interval 388 ms QTC Calculation(Bazett) 444 ms P [place] 71 degrees R [place] -17 degrees T [place] 12 degrees Normal sinus rhythm Cannot rule out Anterior inf arct , age undetermined Abnormal ECG No previous ECGs available LACTIC ACID, VENOUS STAT 07/02/2020 9:40 Resu lts for this PM CDT procedure are i n the results section. XR CHEST 1 VIEW JOMAR 07/02/2020 9:40 Results for this PORTABLE/BEDSIDE PM CDT procedure a re in the results section. HEMOGLOBIN A1C Routine 07/02/2020 9:28 Results f or this PM CDT procedure are i n the results section. CBC W/PLT COUNT & Routine 07/02/2020 9:02 Result s for this AUTO DIFFERENTIAL PM CDT procedure are in the results section. MAGNESIUM Add-On 07/02/2020 9:02 Results for this PM CDT procedure are i n the results section. LIPID PANEL Add-On 07/02/2020 9:02 Results for this PM CDT procedure are i n the results section. HEPATIC FUNCTION Add-On 07/02/2020 9:02 Results for this PANEL PM CDT procedure are i n the results section. TROPONIN I Routine 07/02/2020 9:02 Results for this PM CDT procedure are i n the results section. LACTIC ACID, VENOUS Routine 07/02/2020 9:02 Resu lts for this PM CDT procedure are i n the results section. TSH Routine 07/02/2020 9:02 Results for this PM CDT procedure are i n the results section. PROTHROMBIN TIME/INR Routine 07/02/2020 9:02 Res ults for this PM CDT procedure are i n the results section. PT/APTT Routine 07/02/2020 9:02 Results for this PM CDT procedure are i n the results section. BASIC METABOLIC Routine 07/02/2020 9:02 Results for this PANEL (7) PM CDT procedure are i n the results section. CBC W/PLT COUNT & Routine 07/02/2020 9:02 Result s for this AUTO DIFFERENTIAL PM CDT procedure are in the results section. B-TYPE NATRIURETIC Routine 07/02/2020 9:02 Resul ts for this FACTOR (BNP) PM CDT procedure are i n the results section. REPORT OF PROCEDURE 07/02/2020 Results for this - ENDOSCOPY SCAN procedure a re in the results section. CARDIAC CATH REPORT 07/02/2020 Results for this - SCAN procedure are i n the results section. RHYTHM STRIP - SCAN 10/17/2019 8:32 AM IT APPLICATION SUPPORT ANALYST TRANSFUSION SERVICE 10/13/2019 6:03 REPORT - SCAN PM IT APPLICATION SUPPORT ANALYST POCT-GLUCOSE METER Routine 10/13/2019 7:11 Resul ts for this AM IT APPLICATION SUPPORT ANALYST procedure are i n the results section. HEMOGLOBIN AND Routine 10/13/2019 4:59 Results f or this HEMATOCRIT AM IT APPLICATION SUPPORT ANALYST procedure are i n the results section. BASIC METABOLIC Routine 10/13/2019 4:59 Results for this PANEL (7) AM IT APPLICATION SUPPORT ANALYST procedure are i n the results section. POCT-GLUCOSE METER Routine 10/12/2019 9:00 Resul ts for this PM IT APPLICATION SUPPORT ANALYST procedure are i n the results section. XR KNEE RIGHT 1 OR 2 STAT 10/12/2019 4:17 Res ults for this VIEWS PM IT APPLICATION SUPPORT ANALYST procedure are i n the results section. TISSUE EXAM AP Routine 10/12/2019 2:40 Results for this PM IT APPLICATION SUPPORT ANALYST procedure are i n the results section. ANESTHESIA Routine 10/12/2019 1:26 Results for this PERIPHERAL BLOCK PM IT APPLICATION SUPPORT ANALYST procedure a re in the results section. ANESTHESIA SPINAL Routine 10/12/2019 1:25 Result s for this BLOCK PM IT APPLICATION SUPPORT ANALYST procedure are i n the results section. ARTHROPLASTY,KNEE 10/12/2019 1:14 Osteoarthritis of UNILATERAL PM IT APPLICATION SUPPORT ANALYST right knee, unspecified osteoarthritis type Case Notes 2 HRS Special Needs (CARYL, SPINAL WITH PERIPHE RAL NERVE BLOCK) ABORH, MANUAL Routine 10/12/2019 10:58 AM IT APPLICATION SUPPORT ANALYST Res ults for this procedure are i n the results section . 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 after 08/12/2019 Results XR chest 2 views (07/31/2020 1:07 PM CDT) Specimen Narrative Performed At FINAL REPORT New Relic INDICATION: postsurgical follow up COMPARISON: None TECHNIQUE: Frontal and lateral views of the chest. FINDINGS: Lungs and pleura: Clear lungs. No effusi on. Heart and mediastinum: Normal heart size . Unremarkable mediastinal contours. Osseous structures: No acute abnormality . Additional findings: None. IMPRESSION: No acute intrathoracic abnormality. Signed: Sabiha Monteiro MD Report Verified Date/Time: 07/31/2020 13:16:51 Reading Location: [employer] Reading Room Procedure Note Interface, External Ris In - 07/31/2020 1:19 PM CDT FINAL REPORT INDICATION: postsurgical follow up COMPARISON: None TECHNIQUE: Frontal and lateral views of the chest. FINDINGS: Lungs and pleura: Clear lungs. No effusi on. Heart and mediastinum: Normal heart size . Unremarkable mediastinal contours. Osseous structures: No acute abnormality . Additional findings: None. IMPRESSION: No acute intrathoracic abnormality. Signed: Sabiha Monteiro MD Report Verified Date/Time: 07/31/2020 1 3:16:51 Reading Location: [facility] Reading Room Performing Organization Address City/State/Zipcode Phone Number GE RIS POC-Glucose meter (07/18/2020 11:13 AM CDT)Only the most recent of29 results within the time period is included. POC-Glucose Meter 118 (H) 70 - 110 mg/dL [facility] Comment: [facility] : TESTED AT [facility] [address] [facility], [address] CENTER : Maintenance Scheduler/Shaker Screen Operator ID = [id number] for ZOË KAY BETY Specimen Blood Performing Organization Address City/State/Zipcode Phone Number [facility] [address] [place], [place] [id number] CENTER CBC with platelet count + automated diff (07/18/2020 5:29 AM CDT)Only the most recent of17 resultswithin the time period is included. Pathologist Sig nature WBC 8.2 3.5 - 10.5 [facility] K/L [facility] RBC 2.61 (L) 4.63 - 6.08 [facility] M/L [facility] Hemoglobin 7.7 (L) 13.7 - 17.5 [facility] GM/DL [facility] Hematocrit 24.3 (L) 40.1 - 51.0 % [facility] MCV 93.1 (H) 79.0 - 92.2 fL [facility] MCH 29.5 25.7 - 32.2 pg [facility] MCHC 31.7 (L) 32.3 - 36.5 [facility] GM/DL [facility] RDW 15.9 (H) 11.6 - 14.4 % [facility] Platelets 307 150 - 450 K/CU [facility] MPV 11.4 9.4 - 12.4 fL [facility] nRBC 1 (H) 0 - 0 /100 WBC [facility] % Neutros 68 % [facility] % Lymphs 13 % [facility] % Monos 11 % [facility] % Eos 6 % [facility] % Baso 1 % [facility] # Neutros 5.60 (H) 1.78 - 5.38 [facility] K/L [facility] # Lymphs 1.07 (L) 1.32 - 3.57 [facility]/L [facility] # Monos 0.89 (H) 0.30 - 0.82 [facility]/L [facility] # Eos 0.48 0.04 - 0.54 [facility]/L [facility] # Baso 0.07 0.01 - 0.08 [facility]/L [facility] Immature 1 0 - 1 % [facility] Granulocytes-Relative [facility] Specimen Blood Performing Organization Address City/State/Zipcode Phone Number [address] [address] CENTER Magnesium (07/18/2020 5:29 AM CDT)Only the most recent of25 resultswithin the time period is included. Pathologist Sig nature Magnesium 1.8 1.6 - 2.6 mg/dL [facility] Specimen Blood Narrative Performed At Maintenance Scheduler REESE - YANETH Schmitt [facility] Performing Organization Address City/State/Zipcode Phone Number [address] [address] CENTER Basic Metabolic Panel (07/18/2020 5:29 AM CDT)Only the most recent of23 results within the time period is included. Sodium 133 (L) 136 - 145 meq/L [facility] Potassium 3.4 (L) 3.5 - 5.1 meq/L [facility] Chloride 92 (L) 98 - 107 meq/L [facility] CO2 31 (H) 22 - 29 meq/L [facility] BUN 12 7 - 21 mg/dL [facility] Creatinine 1.09 0.57 - 1.25 [facility] mg/dL [facility] Glucose 112 (H) 70 - 105 mg/dL [facility] Calcium 8.1 (L) 8.4 - 10.2 [facility] mg/dL [facility] EGFR 69Comment: ESTIMATED mL/min/1.73 sq [facility] GFR IS NOT m [facility] ACCURATE CENTER CREATININE CLEARANCE IN PREDICTING GLOMERULAR FILTRATION RATE. ESTIMATED GFR IS NOT APPLICABLE FOR DIALYSIS PATIENTS. Specimen Blood Narrative Performed At Maintenance Scheduler ID - YANETH M [facility] Performing Organization Address City/State/Zipcode Phone Number [facility] [address] [place] [address] CENTER XR chest 1 view portable / bedside (07/18/2020 5:13 AM CDT)Only the most recent of11 resultswithin the time period is included. Specimen Narrative Performed At FINAL REPORT GE RIS Chest one view. Clinical history: chest tubes/ vapotherm Comparison: Chest radiograph 07/17/2020. Technique: A single frontal view of the chest was obtained. Findings: The cardiomediastinal contours are stabl e. There are small bilateral pleural effusions. There is mild discoid atelectasis in the left lung base. There is no pulmonary edema or pne umothorax. There are healed fractures of the left posterior third an d fourth ribs. Signed: Joyce Cox MD Report Verified Date/Time: 07/18/2020 05:50:00 Procedure Note Interface, External Ris In - 07/18/2020 5:52 AM CDT FINAL REPORT Chest one view. Clinical history: chest tubes/ vapotherm Comparison: Chest radiograph 07/17/2020. Technique: A single frontal view of the chest was obtained. Findings: The cardiomediastinal contours are stabl e. There are small bilateral pleural effusions. There is mild discoid atelectasis in the left lung base. There is no pulmonary edema or pne umothorax. There are healed fractures of the left posterior third an d fourth ribs. Signed: Joyce Cox MD Report Verified Date/Time: 07/18/2020 0 5:50:00 Performing Organization Address City/[facility] Phone Number [facility] Osmolality, serum (07/17/2020 5:16 PM CDT) Pathologist Sig nature Osmolality Serum 269 (L) 275 - 295 mOsm/kg [facility] Specimen Blood Performing Organization Address [facility] Phone Number [address] [address] CENTER Urea Nitrogen, random urine (07/17/2020 4:06 PM CDT) Pathologist Sig nature Urea Nitrogen, Ur 475 mg/dL [facility] Specimen Urine Narrative Performed At Reference Range: No Normals [facility] Maintenance Scheduler ID - BS Performing Organization Address [facility] Phone Number [address] [address] [place] Sodium, random urine (07/17/2020 4:06 PM CDT) Pathologist Sig nature Sodium Urine 40 meq/L [facility] Specimen Urine Narrative Performed At Reference Range: No Normals [facility] Maintenance Scheduler ID - BS Performing Organization Address [facility] Phone Number [address] [address] CENTER Potassium, random urine (07/17/2020 4:06 PM CDT) Pathologist Sig nature Potassium Urine 71.0 meq/L [facility] Specimen Urine Narrative Performed At Reference Range: No Normals [facility] Maintenance Scheduler ID - BS Performing Organization Address [facility] Phone Number [address] [address] CENTER Osmolality, urine (07/17/2020 4:06 PM CDT) Pathologist Sig nature Osmolality, Ur 442 50-1,200 mOsm/kg [facility] mOsm/kg [facility] Specimen Urine Performing Organization Address City/State/Zipcode Phone Number [facility] [address] [place] [address] CENTER 2D Echo W/Doppler(CW/PW/Color) (07/17/2020 3:57 PM CDT) Pathologist Sig nature Ejection Fraction [facility] Specimen Narrative Performed At Transthoracic Echocardiography Report (T TE) [facility] Demographics Patient Name INDIANA AMIN Date of Study 07/17/2020 MCKINLEY CUELLAR Gender Male Visit Number [id number] Race Unknown Room Number 1027 Number Date of 1960 Referring Roshan Owen MD Physician Age 60 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 Clinical History ACB(07/09/20), R/L Cath/PCI (07/04/20), GERD, HLD, HTN, Former Smoker HGB 7.8 HCT 24.3 % Contrast Medium: Definity. Height: 69 inches Weight: 104.33 kg (230 lbs) BSA: 2.19 m^2 BMI: 33.96 kg/m^2 HR: 67 bpm BP: 127/60 mmHg Summary LV endocardium is adequately visualized with IV ultrasound enhancing agent. Normal left ventricular chamber size. Normal wall thickness. Normal overall left ventricular systolic function. No apparent segmental wall motion abnormalities. Estimated LVEF by qualitative assessment is normal (>60%) Normal TV structure and function. A trace of tricuspid regurgitation. Estimated peak systolic pressure is at least 30-35 mmHg. The estimated RA pressure by IVC dynamics 5-10mmHg . Otherwise, essentially normal exam. Small loculated pericardial effusion anterior to the RV Signature Findings Left Ventricle LV endocardium is adequately visualized with IV ultrasound enhancing agent. Normal left ventricular chamber size. Normal wall thickness. Normal overall left ventricular systolic function. No appare nt segmental wall motion abnormalities. Estimated LVEF by qualitative assessment is normal (>60%) . Grade 2 diastolic dysfunction (moderately increased LA pres sure). Left Atrium LA size is [id number]-[id number] enlarged . Right Ventricle Normal right ventricle structure and function. Right Atrium Normal righ t atrium. Aortic Valve Mild AoV cusp thickening. AoV cusp mobility is normal . No evidence of aortic regurgitation. Mitral Valve Mild MV leaflet thickening. Tricuspid Valve Normal TV structure and function. A trace of tricuspid regurgitation. Estimated peak systolic pressure is at least 30-35 mmHg . Peak systolic pressure may be underestimated; partial TR signal. Pulmonic Valve Normal PV structure and function by limited views and Doppler. Aorta Aortic root size (SInus of Valsalva diameter) is norm al . Pericardium Small loculated pericardial effusion anterior to the RV IVC/SVC/PA/PV/Pleural The estimated RA pressure by IVC dynamics 5-10mmHg . Chambers/Structures Left Atrium LA Volume: 91.16 ml LA Area: 27.5 cm^2 LA Vol. Index: 42 ml/m^2 Left Ventricle LVIDd: 4.45 cm LVEDV:90.2 ml LVIDs: 3.23 cm LVESV:33.57 ml LV Septum Diastolic: 1.06 cm LVEF 2D Cube: 62 % LV PW Diastolic: 1.05 cm LVEDV Leung's:113.62 ml LV FS: 27.4 % LVESV Leung's:44.3 ml LVEF Leung's: 61 % LVEDVI: 52 ml/m^2 LVESVI: 20 ml/m^2 LVOT Diameter: 2.18 cm LVEF: 62.8 % Aorta Ao Root S of Denise.: 3.64 cm Doppler/Quantitative Measurements Mitral Valve MV Peak E-Wave: 0.99 m/s MV Peak A-Wave: 0.55 m/s E/A Ratio: 1.79 Peak Gradient: 3.92 mmHg Deceleration Time: 233.6 msec MV Howard. Peak: Tissue Doppler E' Lateral Velocity: 0.1 m/s A' Lateral Velocity: 0.07 m/s E/E': 9.98 Aortic Valve Peak Velocity: 1.64 m/s Mean Velocity: 1.11 m/s Peak Gradient: 10.81 mmHg Mean Gradient: 5.5 mmHg AV Area (continuity): 3.25 cm^2 AV VTI: 33.58 cm AV DVI: 0.87 LVOT Peak Velocity: 1.43 m/s Peak Gradient: 8.19 mmHg Mean Velocity: 0.97 m/s Mean Gradient: 4.32 mmHg LVOT Diameter: 2.18 cm LVOT VTI: 29.21 cm LVOT Area: 3.73 cm^2 LVOT SV:108.97 ml LVOT CO: 7.3 l/min LVOT CI: 3.33 l/min/m^2 Tricuspid Valve TR Velocity: 2.39 m/s TR Gradient: 22.93 mmHg Procedure Note Interface, External Ris In - 07/17/2020 5:24 PM CDT Transthoracic Echocardiography Report (TTE) Demographics Patient Name IND[place] AMIN Date of Study 07/17/2020 MCKINLEY CUELLAR Genryne r Male Visit Number [id number] Race Unknown Room Number 1027 Number Date of 1960 Refer ring Roshan Owen MD Physi norah Age 60 year(s) 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 Clinical History ACB(07/09/20), R/L Cath/PCI (07/04/20), GE RD, HLD, HTN, Former Smoker HGB 7.8 HCT 24.3 % Contrast Medium: Definity. Height: 69 inches Weight: 104.33 kg (230 lbs) BSA: 2.19 m^2 BMI: 33.96 kg/m^2 HR: 67 bpm BP: 127/60 mmHg Summary LV endocardium is adequately visualized with IV ultrasound enhancing agent. Normal left ventricular chamber size. Normal wall thickness. Normal overall left ventricular systolic funct ion. No apparent segmental wall motion abnormalities. Estimated LVEF by qualitative assessment is normal (>60%) Normal TV structure and function. A trace of tricuspid regurgitation. Estimated peak systolic pressure is at least 30-35 mmHg. The estimated RA pressure by IVC dynami cs 5-10mmHg . Otherwise, essentially normal exam. Small loculated pericardial effusion an terior to the RV Signature Findings Left Ventricle LV endocardium i s adequately visualized with IV ultrasound enhan cing agent. Normal left ventricular chamber size. No rmal wall thickness. Normal overall left ventricular systolic function. No apparent segmental wall m otion abnormalities. Estimated LVEF by qualitative a ssessment is normal (>60%) . Grade 2 diastolic dysf unction (moderately increased LA pressure). Left Atrium LA size is mild- to-moderately enlarged . Right Ventricle Normal right steve tricle structure and function. Right Atrium Normal right atr ium. Aortic Valve Mild AoV cusp th ickening. AoV cusp mobilit y is normal . No evidence of a ortic regurgitation. Mitral Valve Mild MV leaflet thickening. Tricuspid Valve Normal TV struct ure and function. A trace of tricu spid regurgitation. Estimated peak s ystolic pressure is at least 30-35 mmHg. Peak systolic pr essure may be underestimated; partial TR signa l. Pulmonic Valve Normal PV struct ure and function by limited views and Doppler. Aorta Aortic root size (SInus of Valsalva diameter) is normal . Pericardium Small loculated pericardial effusion anterior to the RV IVC/SVC/PA/PV/Pleural The estimated RA pressure by IVC dynamics 5-10mmHg . Chambers/Structures Left Atrium LA Volume: 91.16 ml LA Area: 27.5 cm^2 LA Vol. Index: 42 ml/m^2 Left Ventricle LVIDd: 4.45 cm LVEDV:90.2 ml LVIDs: 3.23 cm LVESV:33.57 ml LV Septum Diastolic: 1.06 cm LVEF 2D Cube: 62 % LV PW Diastolic: 1.05 cm LVEDV Leung's:113.62 ml LV FS: 27.4 % LVESV Leung's:44.3 ml LVEF Leung's: 61 % LVEDVI: 52 ml/m^2 LVESVI: 20 ml/m^2 LVOT Diameter: 2.18 cm LVEF: 62.8 % Aorta Ao Root S of Denise.: 3.64 cm Doppler/Quantitative Measurements Mitral Valve MV Peak E-Wave: 0.99 m/s M V Peak A-Wave: 0.55 m/s E /A Ratio: 1.79 P eak Gradient: 3.92 mmHg D eceleration Time: 233.6 msec MV Howard. Peak: Tissue Doppler E' Lateral Velocity: 0.1 m/s A ' Lateral Velocity: 0.07 m/s E /E': 9.98 Aortic Valve Peak Velocity: 1.64 m/s Mean Velocity: 1.11 m/s Peak Gradient: 10.81 mmHg Mean Gradient: 5.5 mmHg AV Area (continuity): 3.25 cm^2 AV VTI: 33.58 cm AV DVI: 0.87 LVOT Peak Velocity: 1.43 m/s Pea k Gradient: 8.19 mmHg Mean Velocity: 0.97 m/s Kamilah n Gradient: 4.32 mmHg LVOT Diameter: 2.18 cm LVO T VTI: 29.21 cm LVOT Area: 3.73 cm^2 LVO T SV:108.97 ml LVOT CO: 7.3 l/min LVO T CI: 3.33 l/min/m^2 Tricuspid Valve TR Velocity: 2.39 m/s TR Gradient: 22.93 mmHg Performing Organization Address City/State/[facility] Phone Number [facility] Blood gas, arterial (07/17/2020 5:20 AM CDT)Only the most recent of23 results within the time period is included. Pathologist Sig nature pH, Arterial 7.50 (H) 7.35 - 7.45 [facility] pCO2, Arterial 38 35 - 45 mm Hg [facility] pO2, Arterial 51 (L) 80 - 90 mm Hg [facility] O2 Sat, Arterial 89.0 (L) 96.0 - 97.0 % [facility] HCO3, Arterial 29 21 - 29 mmol/L [facility] Base Excess, Arterial 5.6 (H) -2.0 - 3.0 [facility] mmol/L [facility] Patient Temperature 37.0 [facility] FIO2 21.0 [facility] Specimen Blood, Arterial - Entire right upper arm (body structure) Narrative Performed At Please obtain room air ABG. [facility] Performing Organization Address [facility] Cent[facility] Phone Number [address] [address] CENTER Vitamin B12 and Folate (07/16/2020 1:48 PM CDT) Pathologist Sig nature Vitamin B12 1,276 (H) 213 - 816 pg/mL [facility] Folate 6.50 (L) >=7.00 ng/mL [facility] Specimen Blood Narrative Performed At Maintenance Scheduler ID - BS [facility] Performing Organization Address [facility]/Zipcode Phone Number [address] [address] CENTER Iron, TIBC, % sat. (without ferritin) (07/16/2020 1:48 PM CDT) Pathologist Sig nature Iron 30.0 (L) 40.0 - 160.[address] [facility] ug/dL [facility] TIBC 336 250 - 450 ug/dL [facility] Iron % Saturation 9 (L) 20 - 55 % [facility] Specimen Blood Narrative Performed At [facility] - [facility] Performing Organization Address [facility] Phone Number [address] [address] CENTER Ferritin (07/16/2020 1:48 PM CDT) Pathologist Sig nature Ferritin 214.98 5.00 - 275.00 ng/mL [facility] Specimen Blood Narrative Performed At Maintenance Scheduler ID - BS [facility] Performing Organization Address [facility] Phone Number [address] [address] [place] TRANSFUSION SERVICE REPORT - SCAN (07/12/2020 6:04 PM CDT)Only the most recent of5 resultswithin the time period is included. Narrative Performed At This result has an attachment that is no t available. Prepare Leuko-Red RBC (07/11/2020 11:54 PM CDT) Pathologist Sig nature CROSSMATCH COMPATIBLE SAFETRACE TX Unit ABO O Pos SAFETRACE TX UNIT NUMBER [id number] SAFETRACE TX Status TX_TIMEINCHART SAFETRACE TX Blood Bank Product RED BLOOD CELLS SAFETRACE TX PRODUCT CODE [id number] SAFETRACE TX Specimen Other Performing Organization Address [facility] Phone Number SAFETRACE TX VASCULAR DIAGRAM -SCAN (07/11/2020 3:21 PM CDT) Narrative Performed At This result has an attachment that is no t available. EKG 12 lead (07/11/2020 1:32 PM CDT)Only the most recent of9 resultswithin the time period is included. Specimen Narrative Performed At This result has an attachment that is no t available. Ventricular Rate 80 BPM GE MUSE Atrial Rate 80 BPM P-R Interval 206 ms QRS Duration 80 ms Q-T Interval 390 ms QTC Calculation(Bazett) 449 ms P [place] 33 degrees R [place] -2 degrees T [place] -7 degrees Normal sinus rhythm Normal ECG When compared with ECG of 10-JUL-2020 11:12, Sinus rhythm has replaced Atrial fibrillation Vent. rate has decreased BY [address] elevation now present in Lateral leads Confirmed by Ajith Gamboa ([id number]) on 07/18/2020 5:29:08 PM Procedure Note Interface, External Ris In - 07/18/2020 5:29 PM CDT Ventricular Rate 80 BPM Atrial Rate 80 BPM P-R Interval 206 ms QRS Duration 80 ms Q-T Interval 390 ms QTC Calculation(Bazett) 449 ms P [place] 33 degrees R [place] -2 degrees T [place] -7 degrees Normal sinus rhythm Normal ECG When compared with ECG of 10-JUL-2020 11 :12, Sinus rhythm has replaced Atrial fibrill ation Vent. rate has decreased BY [address] elevation now present in Lateral lead s Confirmed by Ajith Gamboa ([id number]) on 07/05 5:29:08 PM Performing Organization Address City/State/Zipcode Phone Number [facility] Oxygen saturation, measured (07/11/2020 7:03 AM CDT)Only the most recent of5 resultswithin the time period is included. Pathologist Sig [facility] O2 Saturation (Measured) 65.6 % [facility] Specimen Blood Performing Organization Address City/[facility]/Zipcode Phone Number [place] [phone] [place] [address] CENTER CBC (Hemogram only) (07/11/2020 3:16 AM CDT)Only the most recent of2 results within the time period is included. Pathologist Sig nature WBC 11.0 (H) 3.5 - 10.5 K/L [facility] RBC 2.91 (L) 4.63 - 6.08 M/L [facility] Hemoglobin 8.7 (L) 13.7 - 17.5 GM/DL [facility] Hematocrit 26.4 (L) 40.1 - 51.0 % [facility] MCV 90.7 79.0 - 92.2 fL [facility] MCH 29.9 25.7 - 32.2 pg [facility] MCHC 33.0 32.3 - 36.5 GM/DL [facility] RDW 14.9 (H) 11.6 - 14.4 % [facility] Platelets 175 150 - 450 K/CU MM [facility] MPV 11.9 9.4 - 12.4 fL [facility] nRBC 1 (H) 0 - 0 /100 WBC [facility] Specimen Blood Performing Organization Address City/State/Zipcode Phone Number [address] [address] CENTER Phosphorus (07/11/2020 3:16 AM CDT)Only the most recent of5 resultswithin the time period is included. Pathologist Sig nature Phosphorus 3.1 2.3 - 4.7 mg/dL [facility] Specimen Blood Narrative Performed At Maintenance Scheduler ID - YANETH M [facility] Performing Organization Address City/[facility]/Zipcode Phone Number [address] [address] CENTER Prepare PLT (07/10/2020 11:54 PM CDT) Pathologist Sig nature Unit ABO B Neg SAFETRACE TX UNIT NUMBER [id number] SAFETRACE TX Status TX_TIMEINCHART SAFETRACE TX Blood Bank Product PLATELETS SAFETRACE TX PRODUCT CODE [id number] SAFETRACE TX Unit ABO B Pos SAFETRACE TX UNIT NUMBER [id number] SAFETRACE TX Status TX_TIMEINCHART SAFETRACE TX Blood Bank Product PLATELETS SAFETRACE TX PRODUCT CODE [id number] SAFETRACE TX Performing Organization Address City/State/Zipcode Phone Number SAFETRACE [place] Lactic Acid, Arterial (07/10/2020 5:57 AM CDT)Only the most recent of7 results within the time period is included. Pathologist Sig nature Lactate, Art 1.0 0.5 - 2.2 mmol/L [facility] Specimen Blood, Arterial Narrative Performed At Maintenance Scheduler ID - ELLEN [facility] Performing Organization Address [facility] [place] [address] CENTER Transfuse Leuko-Red RBC (07/10/2020 3:02 AM CDT)Potassium-Stat Lab (07/09/2020 10:50 PM CDT)Only the most recent of8 resultswithin the time period is included. Pathologist Sig nature Potassium 4.0 3.6 - 5.5 meq/L [facility] Specimen Blood, Arterial Performing Organization Address [facility] [place] [address] CENTER Sodium Na-Stat Lab (07/09/2020 10:50 PM CDT)Only the most recent of8 results within the time period is included. Pathologist Sig nature Sodium 135 (L) 136 - 145 meq/L [facility] Specimen Blood, Arterial Performing Organization Address [facility] [place] Phone Number [address] [address] CENTER Glucose-Stat Lab (07/09/2020 10:50 PM CDT)Only the most recent of8 resultswithin the time period is included. Pathologist Sig nature Glucose 109 70 - 110 mg/dL [facility] Specimen Blood, Arterial Performing Organization Address [facility] [place] Phone Number [address] [address] CENTER HGB/HCT (H&H)-Stat Lab (07/09/2020 10:50 PM CDT)Only the most recent of8 resultswithin the time period is included. Pathologist Sig nature Hemoglobin 7.3 (L) 13.0 - 16.8 g/dL [facility] Hematocrit 21.0 (L) 40.0 - 50.0 % [facility] Specimen Blood, Arterial Performing Organization Address City/[facility] Phone Number [address] [address] CENTER Calcium, Ionized (07/09/2020 10:50 PM CDT)Only the most recent of4 resultswithin the time period is included. Pathologist Sig nature Calcium, Ion 1.05 (L) 1.12 - 1.27 mmol/L [facility] pH, Blood 7.41 [facility] Specimen Blood Performing Organization Address [facility] Phone Number [address] [address] CENTER Potassium (07/09/2020 8:57 PM CDT)Only the most recent of3 resultswithin the time period is included. Pathologist Sig nature Potassium 4.8 3.5 - 5.1 meq/L [facility] Specimen Blood Narrative Performed At Maintenance Scheduler ID - BS [facility] Performing Organization Address [facility] Phone Number [address] [address] CENTER Hemoglobin and hematocrit (07/09/2020 7:28 PM CDT)Only the most recent of2 resultswithin the time period is included. Pathologist Sig nature Hemoglobin 8.4 (L) 13.7 - 17.5 GM/DL [facility] Hematocrit 25.2 (L) 40.1 - 51.0 % [facility] Specimen Blood Narrative Performed At Maintenance Scheduler ID - [id number] [facility] Performing Organization Address City/[facility] Phone Number [address] [address] CENTER Prepare plasma (07/09/2020 7:12 PM CDT) Pathologist Sig nature Unit ABO O Pos SAFETRACE TX UNIT NUMBER [id number] SAFETRACE TX Status RETURNED FROM ISSUE SAFETRACE TX Blood Bank Product FFP SAFETRACE TX PRODUCT CODE [id number] SAFETRACE TX Unit ABO O Pos SAFETRACE TX UNIT NUMBER [id number] SAFETRACE TX Status RETURNED FROM ISSUE SAFETRACE TX Blood Bank Product FFP SAFETRACE TX PRODUCT CODE [id number] SAFETRACE TX Unit ABO O Pos SAFETRACE TX UNIT NUMBER [id number] SAFETRACE TX Status RETURNED FROM ISSUE SAFETRACE TX Blood Bank Product FFP SAFETRACE TX PRODUCT CODE [id number] SAFETRACE TX Unit ABO O Pos SAFETRACE TX UNIT NUMBER [id number] SAFETRACE TX Status RETURNED FROM ISSUE SAFETRACE TX Blood Bank Product FFP SAFETRACE TX PRODUCT CODE [id number] SAFETRACE TX Performing Organization Address [facility] [place] Phone Number SAFETRACE TX Prepare RBC (07/09/2020 7:12 PM CDT) Pathologist Sig nature CROSSMATCH COMPATIBLE SAFETRACE TX Unit ABO O Pos SAFETRACE TX UNIT NUMBER [id number] SAFETRACE TX Status RETURNED FROM ISSUE SAFETRACE TX Blood Bank Product RED BLOOD CELLS SAFETRACE TX PRODUCT CODE [id number] SAFETRACE TX CROSSMATCH COMPATIBLE SAFETRACE TX Unit ABO O Pos SAFETRACE TX UNIT NUMBER [id number] SAFETRACE TX Status RETURNED FROM ISSUE SAFETRACE TX Blood Bank Product RED BLOOD CELLS SAFETRACE TX PRODUCT CODE [id number] SAFETRACE TX CROSSMATCH COMPATIBLE SAFETRACE TX Unit ABO O Pos SAFETRACE TX UNIT NUMBER [id number] SAFETRACE TX Status RETURNED FROM ISSUE SAFETRACE TX Blood Bank Product RED BLOOD CELLS SAFETRACE TX PRODUCT CODE [id number] SAFETRACE TX CROSSMATCH COMPATIBLE SAFETRACE TX Unit ABO O Pos SAFETRACE TX UNIT NUMBER [id number] SAFETRACE TX Status RETURNED FROM ISSUE SAFETRACE TX Blood Bank Product RED BLOOD CELLS SAFETRACE TX PRODUCT CODE [id number] SAFETRACE TX Performing Organization Address [facility] [place] Phone Number SAFETRACE TX Troponin I (07/09/2020 6:02 PM CDT)Only the most recent of4 resultswithin the time period is included. Pathologist Sig nature Troponin I 0.85 (HH) 0.00 - 0.03 ng/mL [facility] Specimen Blood Narrative Performed At Troponin I (TnI) levels must be interpreted [facility] in the context of the presenting symptoms and the clinical findings. Elevated TnI levels indicate myocardial damage, but are not specific for ischemic heart disease. Elevated TnI levels are seen in patients with other cardiac conditions (including myocarditis and congestive heart failure), and slight TnI elevations occur in patients with other conditions, including sepsis, renal failure, acidosis, acute neurological disease, and persistent tachyarrhythmia. Maintenance Scheduler ID - BS Performing Organization Address City/State/Zipcode Phone Number [facility] [address] [place] [address] CENTER Manual Differential (07/09/2020 3:36 PM CDT) Pathologist Sig nature % Neutros 82 % [facility] % Lymphs 7 % [facility] % Monos 2 % [facility] % Bands 9 0 - 10 % [facility] # Neutros 6.89 (H) 1.78 - 5.[address] [facility] # Lymphs 0.59 (L) 1.32 - 3.[address] [facility] # Monos 0.17 (L) 0.30 - 0.82 [facility] # Bands 0.76 0.00 - 0.80 [facility] Total Counted 100 [facility] nRBC (manual) 1 (H) 0 - 0 /100 WBC [facility] WBC Morphology Normal [facility] Platelet Morphology Normal [facility] Anisocytosis 1+ few [facility] Microcytes 1+ few [facility] Artifact Present [facility] Platelet Conc Decreased [facility] Specimen Blood Narrative Performed At Maintenance Scheduler ID - Jeancarlos [facility] Maintenance Scheduler ID - Tiarra User comments: Slide comments: Performing Organization Address City/State/Zipcode Phone Number [facility] [address] [place] [address] CENTER aPTT (07/09/2020 3:36 PM CDT)Only the most recent of11 resultswithin the time period is included. Pathologist Sig nature PTT 32.9 22.5 - 36.0 seconds [facility] Specimen Blood Performing Organization Address [facility]/Zipcode Phone Number [address] [address] CENTER Prothromin time/INR (07/09/2020 3:36 PM CDT)Only the most recent of3 results within the time period is included. Pathologist Sig nature Protime 17.7 (H) 11.9 - 14.2 seconds [facility] INR 1.50 <=5.90 [facility] Specimen Blood Narrative Performed At Effective 03/02/2019: PT Reference Range [facility] Change New: 11.9-14.2 Previous: 11.7-14.7 RECOMMENDED COUMADIN/WARFARIN INR THERAPY RANGES STANDARD DOSE: 2.0-3.0 Includes: PROPHYLAXIS for venous thrombosis, systemic embolization; TREATMENT for venous thrombosis and/or pulmonary embolus. HIGH RISK: Target INR is 2.5-3.5 for patients wiht mechanical heart valves. Performing Organization Address City/State/Zipcode Phone Number [facility] [address] [place] [address] CENTER Fibrinogen (07/09/2020 3:36 PM CDT) Pathologist Sig nature Fibrinogen 330 225 - 434 mg/dl [facility] Specimen Blood Performing Organization Address City/State/Zipcode Phone Number [address] [place] [address] CENTER POC ACTIVATED CLOTTING TIME (07/09/2020 2:21 PM CDT)Only the most recent of9 resultswithin the time period is included. Activated Clotting 120Comment: : sec [facility] Time 74-137 seconds, [facility] Baseline: TESTED CENTER AT [address], [address]: Maintenance Scheduler/Technicia n ID = [id number] for RICHARD, JORDYN Specimen Blood Performing Organization Address [facility] Phone Number [address] [address] CENTER Platelet count (07/09/2020 2:14 PM CDT) Pathologist Sig nature Platelets 165 150 - 450 K/CU MM [facility] Specimen Blood Narrative Performed At Maintenance Scheduler ID - [id number] [facility] Performing Organization Address [facility] [place] Phone Number [address] [address] CENTER Transfuse Leuko-Red PLT (07/09/2020 1:59 PM CDT)Only the most recent of2 resultswithin the time period is included.JOHN (07/09/2020 10:45 AM CDT) Narrative Performed At Ochoa Kemp MD 07/09/2020 2:34 PM JOHN Date: 07/09/2020 10:00 AM Location: OR Requesting Physician: Tang Conklin MD Examiner: Ochoa Kemp MD Intubated Insertion: easy Pre Intervention Summary: Aorta: No aneu rysm, no dissection, no mobile plaques AV: trileaflet morphology, no aortic denice nosis, no aortic regurgitation LV: normal chamber size , no LVH, normal systolic function (EF 53% by qualitative assessment w/ Simpsons), no RWMA, no thrombus. Normal diastolic function by TDI. MV: normal morphology, mild mitral regur gitation borders on moderate by vena contracta. EROA of 0.12cm2 by PISA, VC of 0.2cm , no mitral stenosis LA: no SHAVONNE thrombus, normal size and fun ction PV: limited visualization RV: normal sized chamber, normal functio n, no thrombus TV: normal morphology, no tricuspid regu rgitation RA: no thrombus no PFO by color dopper flow All findings communicated to surgical te am. Post Intervention Summary: S/p ACB x3 vessels Aorta: No aneurysm, no dissection, no mo bile plaques AV: trileaflet morphology, no aortic denice nosis, no aortic regurgitation LV: normal chamber size, no LVH, normal systolic function with no RWMA. MV: moderate mitral regurgitation - VC increased from 0.35cm to 0.49cm. No BEA. RV: normal sized chamber, normal functio n, no thrombus TV: normal morphology, no tricuspid regu rgitation no PFO by color dopper flow All findings communicated to surgical team. Procedure Note Ochoa Kemp MD - 07/09/2020 10: 45 AM CDT JOHN Date: 07/09/2020 10:00 AM Location: OR R equesting Physician: Tang Conklin MD Examiner: Ochoa Kemp MD Intubated Insertion: easy Pre Intervention Summary: Aorta: No aneu rysm, no dissection, no mobile plaques AV: trileaflet morphology, no aortic denice nosis, no aortic regurgitation LV: normal chamber size , no LVH, normal systolic function (EF 53% by qualitative assessment w/ Simpsons), no RWMA, no thrombus. Normal diastolic function by TDI. MV: normal morphology, mild mitral regur gitation borders on moderate by vena contracta. EROA of 0.12cm2 by PISA, VC of 0.2cm , no mitral stenosis LA: no SHAVONNE thrombus, normal size and fun ction PV: limited visualization RV: normal sized chamber, normal functio n, no thrombus TV: normal morphology, no tricuspid regu rgitation RA: no thrombus no PFO by color dopper flow All findings communicated to surgical te am. Post Intervention Summary: S/p ACB x3 v essels Aorta: No aneurysm, no dissection, no mo bile plaques AV: trileaflet morphology, no aortic denice nosis, no aortic regurgitation LV: normal chamber size, no LVH, normal systolic function with no RWMA. MV: moderate mitral regurgitation - VC i ncreased from 0.35cm to 0.49cm. No BEA. RV: normal sized chamber, normal functio n, no thrombus TV: normal morphology, no tricuspid regu rgitation no PFO by color dopper flow All findings communicated to surgical te am. Type and screen, automated (07/09/2020 3:51 AM CDT)Only the most recent of3 resultswithin the time period is included. Pathologist Sig nature ABO/RH AUTOMATED O POSITIVE [facility] (BEAKER) [facility] Ab Scrn NEGATIVE [facility] Specimen Blood Performing Organization Address City/State/Zipcode Phone Number [facility] [address] [place] [address] SARS-CoV2/RT-PCR ([facility]) (07/08/2020 2:56 PM CDT)Only the most recent of2 resultswithin the time period is included. SARS-COV2/RT-PCR Negative Not Detected, [facility] Negative, See [facility] external report CENTER for linked test SARS-COV-2 [facility] PERFORMING LAB [facility] Specimen Other - Nasopharyngeal wall structure (b dominique structure) Narrative Performed At Negative results do not preclude SARS-CoV-2 [facility] infection and should not be used as the sole basis for patient management decisions. Negative results must be combined with clinical observations, patient history, and epidemiological information. A false negative result may occur if a specimen is improperly collected, transported or handled. The limit of detection for this assay is 250 copies/mL. This SARS CoV-2 test is a rapid, real-time RT-PCR test intended for the qualitative detection of nucleic acid from SARS-CoV-2 in a nasopharyngeal swab specimen collected from individuals suspected of COVID-19 by their healthcare provider. This test has not been Food and Drug Administration (FDA) cleared or approved and has been authorized by FDA under an Emergency Use Authorization (EUA). This EUA will be effective until the declaration that circumstances exist justifying the authorization of the emergency use of in vitro diagnostic tests for detection and/or diagnosis of COVID-19 is terminated under Section 564(b)(2) of the Act or the EUA is revoked under Section 564(g) of the Act. Fact Sheet for Healthcare Providers: https://www.Pumpic/Documents/Xpert%20Xpre ss%20SARS%20CoV-2/Fact%20Sheets/3023802%20SAR S-COV-2%20HEALTHCARE%20PROVIDERS%20FACT%20SHEE T.pdf Fact Sheet for Healthcare Patients: https://www.P[employer]ic/Documents/Xpert%20Xpre ss%20SARS%20CoV-2/Fact%20Sheets/3023801%20SAR S-COV-2%20PATIENT%20FACT%20SHEET.pdf Performing Laboratory: [address] [address] Performing Organization Address City/State/Zipcode Phone Number [place] [phone] CENTER Platelet Aggregation: Function Screen (07/08/2020 12:08 PM CDT)Only the most recent of3 resultswithin the time period is included. Pathologist: Comment: This is [facility] a Counts include 234 beds at the [facility] result. Previous [facility] result was Dee Campbell MD (electronic signature) on 07/09/2020 at 1019 CDT Platelets Comment: This is [facility] a corrected [facility] result. Previous [facility] result was 179 K/CU MM on 07/09/2020 at 1019 CDT ADP Comment: This is [facility] a corrected [facility] result. Previous [facility] result was 47 % on 07/09/2020 at 1019 CDT Platelet Rich Plasma Comment: This is [facility] a corrected [facility] result. Previous MEDICAL CENTER result was 206 k/cu mm on 07/09/2020 at 1019 CDT Plt. Function Screen [facility] Specimen Blood Narrative Performed At Platelet Function Screen results may be [facility] falsely low with platelet counts <75,000/cu mm. Maintenance Scheduler ID - [id number] Maintenance Scheduler ID - [id number] Maintenance Scheduler ID - [id number] Corrected due to QC investigation. Spoke to RN ID:[id number] Performing Organization Address [facility]/Zipcode Phone Number [address] [address] [place] Hemoglobin A1c (07/06/2020 9:48 PM CDT)Only the most recent of2 resultswithin the time period is included. Pathologist Sig nature Hemoglobin A1C 5.9 4.3 - 6.1 % [facility] Specimen Blood Performing Organization Address [facility] Phone Number [facility] [address] [place] [address] [place] Lipid panel (07/06/2020 9:48 PM CDT)Only the most recent of2 resultswithin the time period is included. Pathologist Sig nature Triglycerides 117 mg/dL [facility] Cholesterol 172 mg/dL [facility] [place] HDL 56 mg/dL [facility] [place] LDL Calculated 93 mg/dL [facility] [place] Specimen Blood Narrative Performed At Triglyceride Reference Range: [facility] Low Risk <150 Borderline 150-199 High Risk 200-499 Very High Risk >=500 Cholesterol Reference Range: Low Risk <200 Borderline 200-239 High Risk >240 HDL Cholesterol Reference Range: Low Risk >=60 High Risk <40 LDL Cholesterol Reference Range: Optimal <100 Near Optimal 100-129 Borderline 130-159 High 160-189 Very High >=190 Maintenance Scheduler ID - DB Performing Organization Address [facility]/Zipcode Phone Number [facility] [address] [place] [address] [place] Comprehensive metabolic panel (07/06/2020 9:48 PM CDT) Protein, Total 6.6 6.0 - 8.3 [facility] gm/dL [facility] Albumin 3.8 3.5 - 5.0 [facility] g/dL [facility] Alkaline 90 40 - 150 U/L [facility] Phosphatase [facility] Total Bilirubin 0.5 0.2 - 1.2 [facility] mg/dL [facility] Sodium 134 (L) 136 - 145 [facility] meq/L [facility] Potassium 3.3 (L) 3.5 - 5.1 [facility] meq/L [facility] Chloride 101 98 - 107 [facility] meq/L [facility] CO2 24 22 - 29 meq/L [facility] BUN 14 7 - 21 mg/dL [facility] Creatinine 1.01 0.57 - 1.25 [facility] mg/dL [facility] Glucose 118 (H) 70 - 105 [facility] mg/dL [facility] Calcium 8.7 8.4 - 10.2 [facility] mg/dL [facility] AST 23 5 - 34 U/L [facility] ALT 36 6 - 55 U/L [facility] EGFR 75Comment: mL/min/1.73 [facility] ESTIMATED GFR IS sq [facility] NOT [facility]ATE [facility] CREATININE CLEARANCE IN PREDICTING GLOMERULAR FILTRATION RATE. ESTIMATED GFR IS NOT APPLICABLE FOR DIALYSIS PATIENTS. Specimen Blood Narrative Performed At Maintenance Scheduler ID - DB [facility] Performing Organization Address City/State/Zipcode Phone Number [facility] [address] [place] [address] CENTER PT/aPTT (07/06/2020 4:24 AM CDT)Only the most recent of2 resultswithin the time period is included. Pathologist Sig nature Protime 12.9 11.9 - 14.2 seconds [facility] INR 1.00 <=5.90 [facility] PTT 71.5 (H) 22.5 - 36.0 seconds [facility] Specimen Blood Narrative Performed At Effective 03/02/2019: PT Reference Range [facility] CENTER Change New: 11.9-14.2 Previous: 11.7-14.7 RECOMMENDED COUMADIN/WARFARIN INR THERAPY RANGES STANDARD DOSE: 2.0-3.0 Includes: PROPHYLAXIS for venous thrombosis, systemic embolization; TREATMENT for venous thrombosis and/or pulmonary embolus. HIGH RISK: Target INR is 2.5-3.5 for patients wiht mechanical heart valves. Performing Organization Address City/State/Zipcode Phone Number [facility] [address] [place] [address] CENTER Vein Mapping Legs Bilateral (07/04/2020 6:33 PM CDT) [facility] nature Ejection Fraction [facility] ECHO HEART[facility] Specimen Impressions Performed At Right Impression [facility] ECHO HEART[facility] MKCK[facility] 1. There is no deep venous venous obstruction in the profunda femoral, femoral, popliteal, posterior tibial or peroneal veins. 2. The common femoral vein could not be visualized due to a bandage. 3. The great saphenous vein could not be visualized at the saphenofemoral junction due to a bandage. Left Impression 1. There is no deep venous obstruction in the common femoral, profunda femoral, femoral, popliteal, posterior tibial or peroneal veins. 2. There is no superficial venous obstruction in the great saphenous vein. Conclusions Summary Venous duplex imaging and compression of the bilateral lower extremities was performed. The veins were adequately visualized. The bilateral venous systems were patent and compressible with no evidence of thrombus where visualized. Superficial venous measurements are documented below. Signature Velocities are measured in cm/s ; Diameters are measured in cm LE Vein Mapping Superficial - Great Saphenous Vein Right Left + + + + + + + + !Location ! !Diameter !Depth ! !Diameter !Depth ! + + + + + + + + !Sapheno Femoral Junction ! !0.44 ! ! !0.59 ! ! + + + + + + + + !GSV High Thigh ! !0.42 ! ! !0.45 ! ! + + + + + + + + !GSV Mid Thigh ! !0.52 ! ! !0.34 ! ! + + + + + + + + !GSV Low Thigh ! !0.48 ! ! !0.46 ! ! + + + + + + + + !GSV Knee ! !0.36 ! ! !0.37 ! ! + + + + + + + + !GSV High Calf ! !0.39 ! ! !0.16 ! ! + + + + + + + + !GSV Mid Calf ! !0.4 ! ! !0.2 ! ! + + + + + + + + !GSV Low Calf ! !0.38 ! ! !0.28 ! ! + + + + + + + + !GSV Ankle ! !0.26 ! ! + + + + + Narrative Performed At PV LAB - Lower Extremities Vein Mapping [facility] ECHO HEARTLAB [facility] Demographics Patient Name [place] AMIN Date of Study 07/04/2020 MCKINLEY CUELLAR Age 60 Visit Number [id number] Gender Male Accession Number [id number] Date of 1960 Referring Debi Morales Room Number 6108 Physician Wet Process Assistant Head Miller Domitila Cota, URIEL Interpreting Rosie Pino, Physician Procedure Type of Study: Veins: Lower Extremity Vein Mapping, VEIN MAPPING, LOWER EXTREMITY, BILATERAL. Indications for Study:Preop ACB. Patient Status:TODAY. Study Location:Portable. Technical Quality:Adequate visualization . Risk Factors History of Disease + +----+ + !Diagnosis !Date!Comments ! + +----+ + !History/Risk Factors: ! !CAD, HLD, HTN, former smoker ! + +----+ + Procedure Note Interface, External Ris In - 07/05/2020 8:21 AM CDT PV LAB - Lower Extremities Vein Mapping Demographics Patient Name [place] AMIN of Study 07/04/2020 MCKINLEY CUELLAR Ag e 60 Visit Number [id number] Ge nder Male Accession Number [id number] Da te of 1960 Referring Debi Morales om Number [id number] Physician Wet Process Assistant Head Miller Domitila Cota, RVT In terpreting Rosie Pino, Ph ysician Procedure Type of Study: Veins: Lower Extremity Vein Mapping, VE IN MAPPING, LOWER EXTREMITY, BILATERAL. Indications for Study:Preop ACB. Patient Status:TODAY. Study Location:Portable. Technical Quality:Adequate visualization . Risk Factors History of Disease + +----+------- + !Diagnosis !Date!Comment s ! + +----+------- + !History/Risk Factors: ! !CAD, HL D, HTN, former smoker ! + +----+------- + Impressions Right Impression 1. There is no deep venous venous obstru ction in the profunda femoral, femoral, popliteal, posterior tibial or peroneal veins. 2. The common femoral vein could not be visualized due to a bandage. 3. The great saphenous vein could not be visualized at the saphenofemoral junction due to a bandage. Left Impression 1. There is no deep venous obstruction i n the common femoral, profunda femoral, femoral, popliteal, posterior t ibial or peroneal veins. 2. There is no superficial venous obstru ction in the great saphenous vein. Conclusions Summary Venous duplex imaging and compression o f the bilateral lower extremities was performed. The veins were adequatel y visualized. The bilateral venous systems were patent and compressible wi th no evidence of thrombus where visualized. Superficial venous measurements are doc umented below. Signature Velocities are measured in cm/s ; Diamet ers are measured in cm LE Vein Mapping Superficial - Great Saphenous Vein Right Left + + + + + + + + !Location ! !Diameter !Depth ! !Diameter !Depth ! + + + + + + + + !Sapheno Femoral Junction ! !0.44 ! ! !0.59 ! ! + + + + + + + + !GSV High Thigh ! !0.42 ! ! !0.45 ! ! + + + + + + + + !GSV Mid Thigh ! !0.52 ! ! !0.34 ! ! + + + + + + + + !GSV Low Thigh ! !0.48 ! ! !0.46 ! ! + + + + + + + + !GSV Knee ! !0.36 ! ! !0.37 ! ! + + + + + + + + !GSV High Calf ! !0.39 ! ! !0.16 ! ! + + + + + + + + !GSV Mid Calf ! !0.4 ! ! !0.2 ! ! + + + + + + + + !GSV Low Calf ! !0.38 ! ! !0.28 ! ! + + + + + + + + !GSV Ankle ! !0.26 ! ! + + + + + Performing Organization Address City/State/[facility] Cent[facility]ode Phone Number [facility] [employer] [facility] Carotid doppler bilateral (07/04/2020 6:33 PM CDT) [facility] nature Ejection Fraction [facility] [employer] [facility] [place] Specimen Impressions Performed At Right Impression [facility] [employer] [facility] 1. There is <50% diameter reduction (approximately 23% by 2-D measurement) in the internal carotid artery with a peak velocity of 97 cm/sec and heterogeneous plaque. 2. There is non-occluding plaque in the external carotid artery. 3. There is non-occluding plaque in the common carotid artery. 4. The vertebral artery flow is antegrad e. 5. The subclavian artery is patent with a velocity of 101 cm/sec. Left Impression 1. There is 50-69% diameter reduction (approximately 51% by 2-D measurement) in the internal carotid artery with heterogeneous plaque, a peak velocity of 156 cm/sec and an ICA/CCA peak systolic velocity ratio of 1.51. 2. There is non-occluding plaque in the external carotid artery. 3. There is non-occluding plaque in the common carotid artery. 4. The vertebral artery flow is antegrad e. 5. The subclavian artery is patent with a velocity of 109 cm/sec. Conclusions Summary Carotid duplex scanning and color flow imaging were performed bilaterally. The arteries were adequately visualized. The right internal carotid artery had <50% hemodynamically insignificant stenosis (approximately 23% by 2-D measurement) with heterogeneous plaque. The left internal carotid artery had 50-69% hemodynamically significant stenosis (approximately 51% by 2-D measurement) with heterogeneous plaque. The vertebral artery flow was antegrade and normal bilaterally. The subclavian arteries were patent with normal flow bilaterally where visualize d. Signature Velocities are measured in cm/s ; Diameters are measured in cm Carotid Right Measurements + +----+----+-----+ +---- + + !Location !PSV !EDV !Angle!%Stenosis 2D!%Stenosis Doppler!Tortuosity ! + +----+----+-----+ +---- + + !Prox CCA !76.4!17.4!60 ! ! ! ! + +----+----+-----+ +---- + + !Dist CCA !90.1!24.2!60 ! ! ! ! + +----+----+-----+ +---- + + !Prox ICA !94.4!26.7!60 ! ! ! ! + +----+----+-----+ +---- + + !Dist ICA !97.5!22.4!60 ! ! ! ! + +----+----+-----+ +---- + + !Prox ECA !102 !9.94!60 ! ! ! ! + +----+----+-----+ +---- + + !Vertebral !25 !8.34!60 ! ! ! ! + +----+----+-----+ +---- + + !Prox Subclavian!101 ! !60 ! ! ! ! + +----+----+-----+ +---- + + - Additional Measurements:ICAPSV/CCAPSV 1.08.ICAEDV/CCAEDV 1.53. Carotid Left Measurements + +----+----+-----+ +---- + + !Location !PSV !EDV !Angle!%Stenosis 2D!%Stenosis Doppler!Tortuosity ! + +----+----+-----+ +---- + + !Prox CCA !107 !22.7!60 ! ! ! ! + +----+----+-----+ +---- + + !Dist CCA !103 !31.4!60 ! ! ! ! + +----+----+-----+ +---- + + !Prox ICA !156 !43.9!60 ! ! ! ! + +----+----+-----+ +---- + + !Dist ICA !140 !39.5!60 ! ! ! ! + +----+----+-----+ +---- + + !Prox ECA !140 !13.6!60 ! ! ! ! + +----+----+-----+ +---- + + !Vertebral !74.5!15.7!60 ! ! ! ! + +----+----+-----+ +---- + + !Prox Subclavian!109 ! !60 ! ! ! ! + +----+----+-----+ +---- + + - Additional Measurements:ICAPSV/CCAPSV 1.51.ICAEDV/CCAEDV 1.93. Narrative Performed At LAB - Carotid Duplex Study [facility] ECHO HEARTLAB [facility] Demographics Patient Name INDIANA AMIN Date of Study 07/04/2020 MCKINLEY CUELLAR Age 60 Visit Number [id number] Gender Male Accession Number [id number] Date of 1960 Referring Debi Morales Room Number 3209 Physician Wet Process Assistant Head Miller Domitila Cota, KIKIT Interpreting Physician HUGO Mccoy Procedure Type of Study: Cerebral: Carotid, CAROTID DOPPLER, SHANON ATERAL. Indications for Study:Preop ACB. Patient Status:TODAY. Study Location:Portable. Technical Quality:Adequate visualization . Risk Factors History of Disease + +----+ + !Diagnosis !Date!Comments ! + +----+ + !History/Risk Factors: ! !CAD, HLD, HTN, former smoker ! + +----+ + Procedure Note Interface, External Ris In - 07/05/2020 8:21 AM CDT PV LAB - Carotid Duplex Study Demographics Patient Name INDIANA AMIN te of Study 07/04/2020 MCKINLEY CUELLAR e 60 Visit Number [id number] nder Male Accession Number [id number] Da te of 1960 Referring Debi Morales Colleen om Number [id number] Physician Wet Process Assistant Head Miller Domitila Cota RVT In terpreting Rosie Pino, Ph ysician Procedure Type of Study: Cerebral: Carotid, CAROTID DOPPLER, SHANON ATERAL. Indications for Study:Preop ACB. Patient Status:TODAY. Study Location:Portable. Technical Quality:Adequate visualization . Risk Factors History of Disease + +----+------- + !Diagnosis !Date!Comment s ! + +----+------- + !History/Risk Factors: ! !CAD, HL D, HTN, former smoker ! + +----+------- + Impressions Right Impression 1. There is <50% diameter reduction (julia roximately 23% by 2-D measurement) in the internal carotid artery with a pe ak velocity of 97 cm/sec and heterogeneous plaque. 2. There is non-occluding plaque in the external carotid artery. 3. There is non-occluding plaque in the common carotid artery. 4. The vertebral artery flow is antegrad e. 5. The subclavian artery is patent with a velocity of 101 cm/sec. Left Impression 1. There is 50-69% diameter reduction (a pproximately 51% by 2-D measurement) in the internal carotid artery with hete rogeneous plaque, a peak velocity of 156 cm/sec and an ICA/CCA peak systolic velocity ratio of 1.51. 2. There is non-occluding plaque in the external carotid artery. 3. There is non-occluding plaque in the common carotid artery. 4. The vertebral artery flow is antegrad e. 5. The subclavian artery is patent with a velocity of 109 cm/sec. Conclusions Summary Carotid duplex scanning and color flow imaging were performed bilaterally. The arteries were adequately visualized . The right internal carotid artery had <50% hemodynamically insignificant stenosis (approximately 23% by 2-D measurement) with heterogeneous plaque. The left internal carotid artery had 50-69% hemodynamically significant stenosis (approximately 51% by 2-D measurement) with heterogeneous plaque. The vertebral artery flow was antegrade and normal bilaterally. The s ubclavian arteries were patent with normal flow bilaterally where visualize d. Signature Velocities are measured in cm/s ; Diamet ers are measured in cm Carotid Right Measurements + +----+----+-----+------- -----+ + + !Location !PSV !EDV !Angle!%Stenos is 2D!%Stenosis Doppler!Tortuosity ! + +----+----+-----+------- -----+ + + !Prox CCA !76.4!17.4!60 ! ! ! ! + +----+----+-----+------- -----+ + + !Dist CCA !90.1!24.2!60 ! ! ! ! + +----+----+-----+------- -----+ + + !Prox ICA !94.4!26.7!60 ! ! ! ! + +----+----+-----+------- -----+ + + !Dist ICA !97.5!22.4!60 ! ! ! ! + +----+----+-----+------- -----+ + + !Prox ECA !102 !9.94!60 ! ! ! ! + +----+----+-----+------- -----+ + + !Vertebral !25 !8.34!60 ! ! ! ! + +----+----+-----+------- -----+ + + !Prox Subclavian!101 ! !60 ! ! ! ! + +----+----+-----+------- -----+ + + - Additional Measurements:ICAPSV/CCAPS V 1.08.ICAEDV/CCAEDV 1.53. Carotid Left Measurements + +----+----+-----+------- -----+ + + !Location !PSV !EDV !Angle!%Stenos is 2D!%Stenosis Doppler!Tortuosity ! + +----+----+-----+------- -----+ + + !Prox CCA !107 !22.7!60 ! ! ! ! + +----+----+-----+------- -----+ + + !Dist CCA !103 !31.4!60 ! ! ! ! + +----+----+-----+------- -----+ + + !Prox ICA !156 !43.9!60 ! ! ! ! + +----+----+-----+------- -----+ + + !Dist ICA !140 !39.5!60 ! ! ! ! + +----+----+-----+------- -----+ + + !Prox ECA !140 !13.6!60 ! ! ! ! + +----+----+-----+------- -----+ + + !Vertebral !74.5!15.7!60 ! ! ! ! + +----+----+-----+------- -----+ + + !Prox Subclavian!109 ! !60 ! ! ! ! + +----+----+-----+------- -----+ + + - Additional Measurements:ICAPSV/CCAPS V 1.51.ICAEDV/CCAEDV 1.93. Performing Organization Address City/State/Zipcode Phone Number [facility] Transthoracic 2D echo w/ doppler (cw/pw/color) (07/03/2020 12:47 PM CDT) Pathologist Sig nature Ejection Fraction [facility] ECHO [facility]ART[facility] Specimen Narrative Performed At Transthoracic Echocardiography Report (T TE) [facility] [place] [facility] Demographics Patient Name INDIANA AMIN Date of Study 07/03/2020 Gender Male Visit Number [id number] Race Unknown Room Number 6101 Number Date of 1960 Referring Physician Brittnee Juan MD Age 60 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 Clinical History HGB 12.6 HCT 37.5 % HLD HTN TBI CORONARY ANGIOPLASTY 2011 Contrast Medium: Definity. Height: 69 inches Weight: 104.33 kg (230 lbs) BSA: 2.19 m^2 BMI: 33.96 kg/m^2 HR: 74 bpm BP: 160/79 mmHg Summary 1. The left ventricle is chamber size (by vol index) is normal with mild concentric LV hypertrophy. LVEF by Leung's method of disk assessment is normal (60%) . LV diastolic function is indeterminate. 2. The right ventricular chamber size and systolic function are within normal limits. 3. No significant valvular abnormality. 4. Unable to estimate peak systolic PA pressure; inadequate TR velocity signal. Previous Study No prior exam available for comparison. Signature Findings Technical Quality: Technically adequate exam. Left Ventricle The left ventricle is chamber size (by vol index) is n ormal. Mild concentric LV hypertrophy. All of the LV segments contract normally . LVEF by Leung's method of disk assessment is norm al (60%) . LV diastolic function is indeterminate. Left Atrium LA size is normal . Right Ventricle The right ventricular chamber size and systolic function are within normal limits. Right Atrium RA size is normal. Aortic Valve Normal tri-leaflet Aortic Valve. Mild AoV cusp thickening. Mitral Valve Mild MV leaflet thickening. Trace mitral regurgitation. Tricuspid Valve Normal TV structure and function by available views and Doppler. A trace of tricuspid regurgitation. Unable to estimate peak systolic PA pressure; inadequate TR velocity signal. Pulmonic Valve Normal PV structure and function by limited views and Doppler. Aorta Aortic root size (SInus of Valsalva diameter) is norm al . Proximal ascending aorta size is normal . Pericardium No significant pericardial effusion is visualized. IVC/SVC/PA/PV/Pleural The estimated RA pressure by IVC dynamics 0-5mmHg . Chambers/Structures Left Atrium LA Volume: 49.96 ml LA Area: 19.73 cm^2 LA Vol. Index: 23 ml/m^2 Left Ventricle LVIDd: 5.74 cm LVEDV:139.39 ml LV Septum Diastolic: 0.95 cm LV Septum Systolic: 1.16 cm LV PW Diastolic: 1.07 cm LV PW Systolic: 1.23 cm LVEDV Leung's:148.77 ml LVEDVI: 68 ml/m^2 LVESV Leung's:55.29 ml LVESVI: 25 ml/m^2 LVEF Leung's: 62.8 % LVOT Diameter: 2.22 cm Right Atrium RA Area: 13.85 cm^ 2 Right Ventricle RV Diast Dim.: 3.54 cm TAPSE: 2.79 cm Aorta Ao Root S of Denise.: 3.56 cm Ascending Aorta: 3.53 cm Doppler/Quantitative Measurements Mitral Valve MV Peak E-Wave: 0.78 m/s MV Peak A-Wave: 0.88 m/s E/A Ratio: 0.89 Peak Gradient: 2.42 mmHg Deceleration Time: 277.2 msec MV Howard. Peak: Tissue Doppler E' Septal Velocity: 0.09 m/s E' Lateral Velocity: 0.09 m/s Aortic Valve Peak Velocity: 1.59 m/s Mean Velocity: 1.05 m/s Peak Gradient: 10.16 mmHg Mean Gradient: 5.01 mmHg AV Area (continuity): 3.82 cm^2 AV VTI: 31.55 cm AV DVI: 0.99 LVOT Peak Velocity: 1.36 m/s Peak Gradient: 7.37 mmHg Mean Velocity: 0.86 m/s Mean Gradient: 3.53 mmHg LVOT Diameter: 2.22 cm LVOT VTI: 31.14 cm LVOT Area: 3.87 cm^2 LVOT SV:120.47 ml LVOT CO: 8.92 l/min LVOT CI: 4.07 l/min/m^2 Procedure Note Interface, External Ris In - 07/03/2020 1:55 PM CDT Transthoracic Echocardiography Report (TTE) Demographics Patient Name INDIANA AMIN of Study 07/03/2020 Gen yany Male Visit Number [id number] Rac e Unknown Katt m Number [id number] Number Date of 1960 Ref erring Physician Brittnee Juan MD Age 60 year(s) Son jelani Hoskins Int erpreting Ajith Gamboa MD [facility] Procedure Type of Study TTE procedure:2DECHO W DOPPLE R(CW/PW/COLOR) (STAT) Indications:Acute Chest Pain/ Suspected CAD. Clinical History HGB 12.6 HCT 37.5 % HLD HTN TBI CORONARY ANGIOPLASTY 2011 Contrast Medium: Definity. Height: 69 inches Weight: 104.33 kg (230 lbs) BSA: 2.19 m^2 BMI: 33.96 kg/m^2 HR: 74 bpm BP: 160/79 mmHg Summary 1. The left ventricle is chamber size ( by vol index) is normal with mild concentric LV hypertrophy. LVEF by Leung's method of disk assess ment is normal (60%) . LV diastolic function is indeterminate. 2. The right ventricular chamber size a nd systolic function are within normal limits. 3. No significant valvular abnormality. 4. Unable to estimate peak systolic PA pressure; inadequate TR velocity signal. Previous Study No prior exam available for comparison. Signature Findings Technical Quality: Technically adequate exam. Left Ventricle The left ventric le is chamber size (by vol index) is normal. Mild concentric LV hypertrophy. All of the LV se gments contract normally . LVEF by Leung' s method of disk assessment is normal (60%) . LV diastolic fun ction is indeterminate. Left Atrium LA size is ольга l . Right Ventricle The right ventri cular chamber size and systolic function are wit hin normal limits. Right Atrium RA size is ольга l. Aortic Valve Normal tri-leafl et Aortic Valve. Mild AoV cusp th ickening. Mitral Valve Mild MV leaflet thickening. Trace mitral reg urgitation. Tricuspid Valve Normal TV struct ure and function by available views and Doppler. A trace of tricu spid regurgitation. Unable to estima te peak systolic PA pressure; inadequate TR ve locity signal. Pulmonic Valve Normal PV struct ure and function by limited views and Doppler. Aorta Aortic root size (SInus of Valsalva diameter) is normal . Proximal ascendi ng aorta size is normal . Pericardium No significant p ericardial effusion is visualized. IVC/SVC/PA/PV/Pleural The estimated RA pressure by IVC dynamics 0-5mmHg . Chambers/Structures Left Atrium LA Volume: 49.96 ml LA Area: 19.73 cm^2 LA Vol. Index: 23 ml/m^2 Left Ventricle LVIDd: 5.74 cm LVEDV:139.39 ml LV Septum Diastolic: 0.95 cm LV Septum Systolic: 1.16 cm LV PW Diastolic: 1.07 cm LV PW Systolic: 1.23 cm LVEDV Leung's:148.77 ml LVEDVI: 68 ml/m^2 LVESV Leung's:55.29 ml LVESVI: 25 ml/m^2 LVEF Leung's: 62.8 % LVOT Diameter: 2.22 cm Right Atrium RA Area: 13.85 cm^2 Right Ventricle RV Diast Dim.: 3.54 cm TAPSE: 2.79 cm Aorta Ao Root S of Denise.: 3.56 cm Ascending Aorta: 3.53 cm Doppler/Quantitative Measurements Mitral Valve MV Peak E-Wave: 0.78 m/s M V Peak A-Wave: 0.88 m/s E /A Ratio: 0.89 P eak Gradient: 2.42 mmHg D eceleration Time: 277.2 msec MV Howard. Peak: Tissue Doppler E' Septal Velocity: 0.09 m/s E' Lateral Velocity: 0.09 m/s Aortic Valve Peak Velocity: 1.59 m/s Mean Velocity: 1.05 m/s Peak Gradient: 10.16 mmHg Mean Gradient: 5.01 mmHg AV Area (continuity): 3.82 cm^2 AV VTI: 31.55 cm AV DVI: 0.99 LVOT Peak Velocity: 1.36 m/s Pea k Gradient: 7.37 mmHg Mean Velocity: 0.86 m/s [place]ilah n Gradient: 3.53 mmHg LVOT Diameter: 2.22 cm LVO T VTI: 31.14 cm LVOT Area: 3.87 cm^2 LVO T SV:120.47 ml LVOT CO: 8.92 l/min LVO T CI: 4.07 l/min/m^2 Performing Organization Address City/State/[facility] Center[facility]j Phone Number [facility] Myocardial Perfusion Pet/CT (Rest & Stress) (07/03/2020 11:20 AM CDT) Specimen Narrative Performed At FINAL REPORT [facility] PROCEDURE: MYOCARDIAL PERFUSION PET IMAG ING (Rest/Stress) CPT CODE: 09367 INDICATION: CAD CARDIOVASCULAR PROFILE: CAD History: CAD Symptoms: Chest pain, dyspnea Risk Factors: None BMI: 34.0 Medications: Atorvastatin, clopidogrel, metoprolol STRESS PROTOCOL: Pharmacologic stress was achieved with a 10-second intravenous infusion of regadenoson 0.4 mg. The radi opharmaceutical was administered 30 seconds after the start of the regadenoson infusion. IMAGING PROTOCOL: Limited low-dose CT imaging was performe d for attenuation correction. 33.1 mCi of Rb-82 chloride was injected intravenously at rest, and gated PET images were obtained. Then, 32 .9 mCi of Rb-82 chloride was injected intravenously at peak stress, a nd gated PET images were obtained. Image quality is good. REST FINDINGS: HR: 64/min BP: 119/77 mmHg Prelim. EKG: Normal sinus rhythm. Perfusion: Normal.Basal to apical anteri or defect is likely artifactual. Mild apical perfusion defec t. Wall Motion: Normal (LVEF 65%). LV Volume: Normal. RV Volume: Normal. STRESS FINDINGS: HR: 71/min (44% of MPHR) BP: 106/72 mmHg Prelim. EKG: No ischemic changes. Symptoms: None (treatment not required). Perfusion: Mild apical perfusion defect. Basal to apical anterior defect is likely artifactual. Wall Motion: Normal (LVEF 68%). LV Volume: Not significantly changed fro m rest. IMPRESSION: 1. Suspicious study. 2. Abnormal myocardial perfusion. Mild, partially reversible apical perfusion defect 3. Normal resting LVEF, which does not d eteriorate with pharmacologic stress. 4. Normal extracardiac tracer distributi on. 5. There is no prior study for compariso n. Signed: Kinza Gomez MD Report Verified Date/Time: 07/03/2020 14:30:46 Reading Location: [address] Reading Room Procedure Note Interface, External Ris In - 07/03/2020 2:32 PM CDT FINAL REPORT PROCEDURE: MYOCARDIAL PERFUSION PET IMAG ING (Rest/Stress) CPT CODE: 07967 INDICATION: CAD CARDIOVASCULAR PROFILE: CAD History: CAD Symptoms: Chest pain, dyspnea Risk Factors: None BMI: 34.0 Medications: Atorvastatin, clopidogrel, metoprolol STRESS PROTOCOL: Pharmacologic stress was achieved with a 10-second intravenous infusion of regadenoson 0.4 mg. The radi opharmaceutical was administered 30 seconds after the start of the regadenoson infusion. IMAGING PROTOCOL: Limited low-dose CT imaging was performe d for attenuation correction. 33.1 mCi of Rb-82 chloride was injected intravenously at rest, and gated PET images were obtained. Then, 32 .9 mCi of Rb-82 chloride was injected intravenously at peak stress, a nd gated PET images were obtained. Image quality is good. REST FINDINGS: HR: 64/min BP: 119/77 mmHg Prelim. EKG: Normal sinus rhythm. Perfusion: Normal.Basal to apical anteri or defect is likely artifactual. Mild apical perfusion defec t. Wall Motion: Normal (LVEF 65%). LV Volume: Normal. RV Volume: Normal. STRESS FINDINGS: HR: 71/min (44% of MPHR) BP: 106/72 mmHg Prelim. EKG: No ischemic changes. Symptoms: None (treatment not required). Perfusion: Mild apical perfusion defect. Basal to apical anterior defect is likely artifactual. Wall Motion: Normal (LVEF 68%). LV Volume: Not significantly changed fro m rest. IMPRESSION: 1. Suspicious study. 2. Abnormal myocardial perfusion. Mild, partially reversible apical perfusion defect 3. Normal resting LVEF, which does not d eteriorate with pharmacologic stress. 4. Normal extracardiac tracer distributi on. 5. There is no prior study for compariso n. Signed: Kinza Gomez MD Report Verified Date/Time: 07/03/2020 1 4:30:46 Reading Location: [address] Reading Room Performing Organization Address City/State/Zipcode Phone Number GE RIS Treadmill tolerance(Non-Nuclear Treadmill) (07/03/2020 11:05 AM CDT) Specimen Narrative Performed At Protocol Name Regadenoson GE MUSE Time In Exercise Phase 00:01:00 Max. Systolic BP 106 mmHg Max Diastolic BP 72 mmHg Max Heart Rate 71 BPM Max Predicted Heart Rate 158 BPM Reason For Termination Predetermined end point Reason for Test CAD Target HR Formula (220 - Age)*100% Arrhythmias ventricular premature beats- isolated Resting ECG Normal sinus rhythm ST Changes No Significant Changes Overall Impression Indeterminate due to pharmacological stress Chest Pain none HR Response To Exercise BP Response To Exercise asa,atorvastatin,heparin gtt clopidogrel,Metoprolol Confirmed by fellow Brendan Villavicencio ([id number]) on 07/03/2020 1:27:14 PM Confirmed by MD Sara, Juan Carlos ([id number]) on 07/05/2020 1:5 1:03 PM Procedure Note Interface, External Ris In - 07/05/2020 1:51 PM CDT Protocol Name Regadenoson Time In Exercise Phase 00:01:00 Max. Systolic BP 106 mmHg Max Diastolic BP 72 mmHg Max Heart Rate 71 BPM Max Predicted Heart Rate 158 BPM Reason For Termination Predetermined end point Reason for Test CAD Target HR Formula (220 - Age)*100% Arrhythmias ventricular premature beats- isolated Resting ECG Normal sinus rhythm ST Changes No Significant Changes Overall Impression Indeterminate due to pharmacological stress Chest Pain none HR Response To Exercise BP Response To Exercise asa,atorvastatin,heparin gtt clopidogrel,Metoprolol Confirmed by fellow Brendan Villavicencio ([id number]) on 07/03/2020 1:27:14 PM Confirmed by MD Ruiz Mahboob ([id number]) on 07/05/2020 1:51:03 PM Performing Organization Address City/State/Zipcode Phone Number GE MUSE Lactic acid, venous (07/03/2020 3:30 AM CDT)Only the most recent of4 results within the time period is included. Pathologist Sig nature Lactate, Venous 1.93 0.50 - 2.20 mmol/L [facility] Specimen Blood Narrative Performed At Maintenance Scheduler ID - [facility] Performing Organization Address [facility] Cent[facility]ode Phone Number [address] [address] CENTER Blood gas, venous (07/03/2020 3:30 AM CDT) Pathologist Sig nature pH, Steve 7.43 (H) 7.32 - 7.42 [facility] pCO2, Steve 39 (L) 41 - 51 mmHg [facility] pO2, Steve 64 (H) 25 - 40 mmHg [facility] O2 Sat, Steve 93.1 (H) 40.0 - 70.0 % [facility] HCO3, Steve 25 21 - 29 mmol/L [facility] Base Excess, Steve 0.9 -2.0 - 3.0 [facility] mmol/L [facility] Patient Temperature 37.0 C [facility] FIO2 21.0 % [facility] Specimen Blood Performing Organization Address City/[facility] Cent[facility]ode Phone Number [facility] [address] [place] [address] CENTER TSH (07/02/2020 9:02 PM CDT) Pathologist Sig nature TSH 1.364 0.350 - 4.940 uIU/mL [facility] Specimen Blood Narrative Performed At Maintenance Scheduler ID - [facility] Performing Organization Address City/[facility]/Zipcode Phone Number [address] [address] CENTER B-type Natriuretic Factor (BNP) (07/02/2020 9:02 PM CDT) Pathologist Sig nature BNP 68 0 - 100 pg/mL [facility] Specimen Blood Narrative Performed At Maintenance Scheduler ID - [facility] Performing Organization Address City/[facility]/Zipcode Phone Number [address] [address] [place] Hepatic function panel (07/02/2020 9:02 PM CDT) Pathologist Sig nature Protein, Total 7.8 6.0 - 8.3 gm/dL [facility] Albumin 4.5 3.5 - 5.0 g/dL [facility] Total Bilirubin 0.5 0.2 - 1.2 mg/dL [facility] Bilirubin, Direct 0.3 0.1 - 0.5 mg/dL [facility] Alkaline Phosphatase 100 40 - 150 U/L [facility] AST 31 5 - 34 U/L [facility] ALT 40 6 - 55 U/L [facility] Specimen Blood Narrative Performed At Maintenance Scheduler ID - JAEL C [facility] Maintenance Scheduler ID - DB Performing Organization Address City/State/Zipcode Phone Number [address] [address] CENTER EKG-SCANNED (07/02/2020) Narrative Performed At This result has an attachment that is no t available. Ordered by an unspecified provider. CARDIAC CATH REPORT - SCAN (07/02/2020) Narrative Performed At This result has an attachment that is no t available. Ordered by an unspecified provider. RHYTHM STRIP - SCAN (10/17/2019 8:32 AM IT APPLICATION SUPPORT ANALYST) Narrative Performed At This result has an attachment that is no t available. XR knee 1 or 2 views right (10/12/2019 4:17 PM IT APPLICATION SUPPORT ANALYST) Specimen Narrative Performed At FINAL REPORT GE RIS COMPARISON: None. FINDINGS: 2 views of the right knee are submitted. Patient is presumably status post recent right knee replacement. There is anatomic alignment of the surgical prost hesis. There is postoperative gas in the surrounding soft tissues . Signed: Satya Huff MD Report Verified Date/Time: 10/12/2019 16:44:57 Reading Location: [facility] Radiology Readin g Room Procedure Note Interface, External Ris In - 10/12/2019 4:47 PM IT APPLICATION SUPPORT ANALYST FINAL REPORT COMPARISON: None. FINDINGS: 2 views of the right knee are submitted. Patient is presumably status post recent right knee replacement. There is anatomic alignment of the surgical prost hesis. There is postoperative gas in the surrounding soft tissues . Signed: Satya Huff MD Report Verified Date/Time: 10/12/2019 1 6:44:57 Reading Location: [facility] Radiology Readin g Room Performing Organization Address City/State/Zipcode Phone Number RIS Tissue Exam (10/12/2019 2:40 PM IT APPLICATION SUPPORT ANALYST) Case Report Surgical Pathology Report Case: [id number] [facility] Authorizing Provider: Ernst Lake Collected: 10/12/2019 1440 [facility] Abe Cuellar MD [facility] Ordering Location: [facility] [place] OR Received: 10/13/2019 0810 Perioperative Services Pathologist: Sabi John MD Specimen: Condyle,Right Knee DIAGNOSIS CONDYLES, RIGHT KNEE, ARTHROPLASTY: CHI S T LUCORINNE'S Electronically - DEGENERATIVE CHANGES CONSISTENT WITH OSTEOARTHRIT IS [facility] signed by oDra, - SYNOVIUM WITH REACTIVE CHANGES [facility] MD Sabi on 10/19/2019 at 1 :46 Signing Pathologist Direct Phone Line: PM CPT Code(s) 20749, 35405 [facility] CLINICAL HISTORY Preop diagnosis: [facility] osteoarthritis or [facility] right knee, [facility]ICAL [facility]ENTER unspecified osteoarthritis type SPECIMEN SOURCE Condyle right knee [facility] GROSS DESCRIPTION Received in formalin labeled with the patient's name, accession number and "condyle, right knee" are multiple jones-yellow bone and soft tissue fragments that range from 3.0 to 7.8 cm in greatest dimensi [facility]. The articular surface is smooth to finely granular, focally erythematous and displays multiple peripheral osteophytes that measure up to 2.0 cm in greatest dimension. The cut surface is jones-yellow, [facility] trabeculated and firm with c ortical bone measuring up to 0.2 cm thick. Tax Economist sections are submitted as A1-A3 following decalcification. PA/pl [facility] MICROSCOPIC Performed. [facility] Specimen Tissue - Condyle,Right Knee Performing Organization Address City/State/Zipcode Phone Number [facility] [address] [place] [address] CENTER ANESTHESIA PERIPHERAL BLOCK (10/12/2019 1:26 PM IT APPLICATION SUPPORT ANALYST) Narrative Performed At Patricia Ortiz MD 0 1:27 PM Peripheral Block Patient location during procedure: [...] Patricia Ortiz MD - 10/12/2019 1:26 PM IT APPLICATION SUPPORT ANALYST Peripheral Block Patient location during procedure: pre-p [...] e ANESTHESIA SPINAL BLOCK (10/12/2019 1:25 PM IT APPLICATION SUPPORT ANALYST) Narrative Performed At Patricia Ortiz MD 0 1:27 PM Spinal Block Patient location during procedure: [...] Patricia Ortiz MD - 10/12/2019 1:25 PM IT APPLICATION SUPPORT ANALYST Spinal Block Patient location during procedure: pre-p [...] Notes Dr. Cota present throughout procedur e ABORH, manual (10/12/2019 10:58 AM IT APPLICATION SUPPORT ANALYST) Pathologist Sig nature ABO Grouping O [facility] Rh Factor POS [facility] Specimen Blood Performing Organization Address City/State/Zipcode Phone Number [facility] [address] [place] [address] after 08/12/2019 Insurance Payer Benefit Plan / Subscriber ID Effective Phone Address T ype Group Dates CIGNA CIGNA [id number] 2019-Pre Maps [employer] sent Cont racted ALL CDC REVIEW CDC REVIEW [id number] 2020-[place] [address] [place] [address] Advance Directives For more information, please contact: [phone] Code Status Date Activated Date Inactivated Comments Full Code 07/02/2020 9:21 PM 07/09/2020 4:27 PM This code status was determined by: Patient Full Code 10/12/2019 4:26 PM 10/13/2019 2:23 PM This code status was determined by: Patient Full Code 10/12/2019 10:27 AM 10/12/2019 4:26 PM This code status was determined by: Patient
--- OUTSIDE RECORDS SUMMARY | 2020-08-12 15:21 | XMS REPORT | Continuity of Care Document ---
:1960 Author Organization [facility] t Address [address] [place] [address] Care Team Providers Name Role Phone Netta Thompson Primary Care Physician Domenic Conklin MD Attending Clinician Keith Vargas Attending Clinician Lexie ARIAS Attending Clinician Leobardo PLUMMER Attending Clinician Heriberto PLUMMER, A Attending Clinician Unavailable Gloria Beaulieu MD Attending Clinician Viridiana ARIAS Attending Clinician Dora Yoder MD Attending Clinician Unavailable GLORIA BEAULIEU Attending Clinician Unavailable Carmen ARIAS Attending Clinician Rommel PLUMMER, Douglas Attending Clinician LIS GOYAL Attending Clinician Unavailable Lis Goyal MD Attending Clinician Cipriano ARIAS, Ronan Attending Clinician Antonino Tan MD Attending Clinician GLORIA BEAULIEU Admitting Clinician Unavailable LIS GOYAL Admitting Clinician Unavailable Payers Payer Name Policy Type Policy Effective Date Expiration Date Sour ce Number [employer] [id number] 2019 [facility] 00:00:00 [facility] [id number] resentMaps Contracted [facility] REVIEWCDC [id number] [facility] [id number] 00:00:00 - [place] [address] Problems Condition Condition Condition Status Onset Resolution Last Treating Co mments Source Name Details Category Date Date Treatment Clinician Date PAF PAF Disease Active 2019-[address] [facility] (paroxysma (paroxysma 0-14 Sunitha kes - l atrial l atrial 00:00: Medica l fibrillati fibrillati 00 Ce nter on) on) Acute Acute Disease Active 2019-[address] [facility] blood loss blood loss 0-14 Sunitha kes - anemia anemia 00:00: Medical 00 Center Acute Acute Disease Active 2019-[address] [facility] [address] diastolic diastolic 0-14 [facility] - CHF CHF 00:00: Medical (congestiv (congestiv 00 Ce nter e heart e heart failure) failure) Acute on Acute on Disease Active 2019-[facility] chronic chronic 0-14 [facility] - diastolic diastolic 00:00: Medi meño (congestiv (congestiv 00 Ce nter e) heart e) heart failure failure Other Other Disease Active 2019-[address] [facility] [address] folate folate 0-14 [facility] - deficiency deficiency 00:00: Me dical anemias anemias 00 Center S/P CABG S/P CABG Disease Active 2019-10 [facility] (Dr. kahn3 ( 0-05 Claude Conklin 00:00: Medical 07/09/20) 07/09/20) 00 Center Coronary Coronary Disease Active [facility] artery artery 928 kes - disease disease 00:00: Medical 00 [place] Arthritis Arthritis Disease Active [facility] of right of right 1-08 [facility] - knee knee 00:00: Medical 00 [place] Allergies, Adverse Reactions, Alerts This patient has no known allergies or adverse reactions. Social History Social Habit Start Date Stop Date Quantity Comments Source History SDOH [facility] Alcohol Std Drinks Medica l Center History SDOH [facility] Alcohol Binge Medical Christopher ter Sex Assigned At [facility] Tobacco use and 2020-07-09 2020-07-[address] [facility] [address] Sunitha kes - exposure 00:00:00 00:00:00 [facility] Alcohol intake 2020-07-09 2020-07-[address] [facility] - 00:00:00 00:00:00 non-drinker of Medical Ce nter alcohol (finding) History SDOH 2019-10-04 2019-10-[address] [facility] - Alcohol Frequency 00:00:00 00:00:00 [facility] Center Tobacco Comment 2019-10-04 2019-10-04 quit at age 29 [facility] 00[facility] Center Smoking Status Start Date Stop Date Source Former smoker 2020-07-09 00:00:00 2020-07-09 00:00:[address] [facility] Medications Ordered Filled Start Stop Current Ordering Indication Dosage Frequency Signature Comments Components Source Medication Medication Date Date Medication? Clinician (SIG) Name Name pantoprazol 2019-10 Yes 40mg Q.5D Take [address] [facility] e 0-27 by mouth 2 [facility] - (PROTONIX) 13:23: (two) Medica l 40 MG 06 times Center tablet daily. gabapentin 2019-10 Yes 1200mg Q.5D Take 1,[address] (NEURONTIN) 0-27 mg by [facility] - 600 MG 13:23: mouth 2 Medical tablet 06 (two) Center times daily . tamsulosin 2019-10 Yes .4mg QD Take 1 [facility] (FLOMAX) 0-15 capsule [facility] - 0.4 mg Cap 00:00: (0.4 mg Medi meño 24 hr 00 total) by Center capsule mouth daily No refills through my office. potassium 2019-10 Yes 20meq Q.5D Take 1 [facility] chloride SA 0-15 tablet (20 Sunitha kes - (K-DUR,KLOR 00:00: mEq total) Medical -CON) 20 00 by mouth 2 Cente r MEQ tablet (two) times daily Take with your Lasix (furosemid e). No refills through my office. clopidogreL 2019-10- Yes 75mg QD Take [address] (PLAVIX) 75 0-15 10-15 tablet (75 L ukes - mg tablet 00:00: 23:59 mg total) Me dical 00 :00 by mouth Center daily No refills through my office. aspirin 81 2019-10- Yes 81mg QD Take [address] MG EC 0-15 10-15 tablet (81 [facility] - tablet 00:00: 23:59 mg total) Medic al 00 :00 by mouth Center daily No refills through my office. atorvastati 2019-10- No 40mg QD Take [address] n (LIPITOR) 0-14 10-14 by mouth Elvia es - 40 MG 11:44: 00:00 daily. Medical tablet 48 :00 Center metoprolol 2019-10- No 25mg Q.5D Take [address] [facility] (LOPRESSOR) 0-14 10-14 by mouth 2 L ukes - 25 MG 11:44: 00:00 (two) Medical tablet 48 :00 times Center daily. amLODIPine 2019-10- No 10mg QD Take [address] [address] (NORVASC) 0-14 10-14 by mouth [facility] - 10 MG 11:44: 00:00 daily. Medical tablet 48 :00 Center baclofen 2019-10- No 20mg [id number] Take [address] (LIORESAL) 0-14 10-14 [id number] by mouth 3 [facility] - 20 MG 11:44: 00:00 3D (three) Medical tablet 48 :00 times Center daily. meloxicam 2019-10- No 15mg QD Take [address] (MOBIC) 15 0-14 10-14 by mouth Luke s - MG tablet 11:44: 00:00 daily. Medic al 48 :00 [place] polyethylen 2019-10 Yes Use as [facility] e glycol 0-14 needed per [facility]ukes - (GLYCOLAX) 00:00: package Medi meño 17 gram 00 instructio Center packet ns for constipati on. It is over-the-c ounter.. atorvastati 2019-10 Yes 80mg QD Take [address] n (LIPITOR) 0-14 tablets [facility] - 40 MG 00:00: (80 mg Medical tablet 00 total) by Center mouth daily No refills through my office. baclofen 2019-10 Yes 20mg [id number] Take [address] (LIORESAL) 0-14 [id number] tablet (20 [facility] - 20 MG 00:00: 3D mg total) Medical tablet 00 by mouth 3 Center (three) times daily Do not take if you are using [place] (hydrocodo ne). You have this at home. amiodarone 2019-10 Yes Take 2 [facility] (PACERONE) 0-14 tabs (400 [facility] s - 200 MG 00:00: mg) once Medical tablet 00 tonight Center Jul 18, then begin on Jul 19 taking 1 tab twice a day for 7 days, then 1 tab daily. No refills through my office. folic acid 2019-10- Yes 1mg QD Take [address] (FOLVITE) 1 0-14 10-14 tablet (1 Sunitha kes - MG tablet 00:00: 23:59 mg total) Me dical 00 :00 by mouth Center daily No refills through my office. carvediloL 2019-10- Yes 12.5mg Q.5D Take [address] (COREG) 0-14 10-14 tablet [facility] - 12.5 MG 00:00: 23:59 (12.5 mg Medic al tablet 00 :00 total) by Center mouth 2 (two) times daily No refills through my office. furosemide 2019-10- Yes 40mg Take [address] [facility] (LASIX) 40 0-14 10-14 tablet (40 Sunitha kes - MG tablet 00:00: 23:59 mg total) Me dical 00 :00 by mouth 2 Center (two) times daily No refills through my office. ferrous 2019-10- Yes 325mg Take [address] [facility] [facility] sulfate 325 0-14 10-14 tablet [facility] - (65 FE) MG 00:00: 23:59 (325 mg Med ical tablet 00 :00 total) by Center mouth daily with lunch No refills through my office. HYDROcodone 2019-10- No 1{tbl} Take [address] -acetaminop 0-14 10-21 tablet by Sunitha delgado (NORCO 00:00: 23:59 mouth Medic al 10-325) 00 :00 every 6 Center 10-325 mg (six) per tablet hours as needed (Moderate to severe acute postop pain) for up to 7 days. Max Daily Amount: 4 tablets hydroCHLORO 2019- Yes 25mg QD Take [address] thiazide 8-21 by mouth [facility] - (HYDRODIURI 00:00: daily. Medi meño L) 25 MG 00 Center tablet aspirin 325 2020- No 325mg QD Take [address] MG tablet 1-10 -09 tablet [facility] - 00:00: 23:59 (325 mg Medical 00 :00 total) by Center mouth daily for 30 days. meloxicam 2019- No 15mg QD Take [address] (MOBIC) 15 10-13 by mouth Luke s - MG tablet 12:04: 00:00 daily. Medic al 18 :00 Center meloxicam 2020- No 15mg QD Take 1 [facility] (MOBIC) 15 10-13 tablet (15 Sunitha kes - MG tablet 00:00: 23:59 mg total) Me dical 00 :00 by mouth Center daily for 30 days. Vital Signs Vital Name Observation Time Observation Value Comments Source Systolic blood 2020-07-31 13:14:00 130 mm[Hg] [facility] Diastolic blood 2020-07-31 13:14:00 84 mm[Hg] [facility] S [facility] Heart rate 2020-07-31 13:14:00 73 /min [facility] Body temperature 2020-07-31 13:14:00 36.44 Ninoska [facility] Respiratory rate 2020-07-31 13:14:00 20 /min [facility] Body height 2020-07-31 13:14:00 175.3 cm [facility] Body weight 2020-07-31 13:14:00 99.791 kg [facility] BMI 2020-07-31 13:14:00 32.49 kg/m2 [facility] Oxygen saturation in 2020-07-31 13:14:00 95 /min [facility] Arterial blood by Medical Ce nter Pulse oximetry Procedures Procedure Date / Time Performed Performing Clinician Sourc e XR CHEST 2 VIEWS 2020-07-31 13:07:00 Christopher Serra [facility] POCT-GLUCOSE METER 2020-07-18 11:13:00 Roshan Owen [facility] POCT-GLUCOSE METER 2020-07-18 07:38:00 Roshan Owen [facility] BASIC METABOLIC PANEL (7) 2020-07-18 05:29:00 Fannie Barcenas [facility] MAGNESIUM 2020-07-18 05:29:00 Fannie Barcenas [facility] CBC W/PLT COUNT & AUTO 2020-07-18 05:29:00 Fannie Barcenas [facility] XR CHEST 1 VIEW 2020-07-18 05:13:00 Dee Reyna [facility] PORTABLE/BEDSIDE [facility] POCT-GLUCOSE METER 2020-07-17 21:03:00 Lexie [facility] OSMOLALITY, SERUM 2020-07-17 17:16:00 Hemal Sim [facility] POCT-GLUCOSE METER 2020-07-17 16:44:00 Lexie [facility] SODIUM, RANDOM URINE 2020-07-17 16:06:00 Chiquis Hemalodessa Arshad [facility] POTASSIUM, RANDOM URINE 2020-07-17 16:06:00 Hemal Sim [facility] OSMOLALITY, URINE 2020-07-17 16:06:00 Chiquis Hemalodessa Arshad [facility] UREA NITROGEN, RANDOM 2020-07-17 16:06:00 Chiquis Hemalodessa Arshad [facility] URINE [facility] 2D ECHO W/ DOPPLER 2020-07-17 15:57:24 Lexie [facility] (CW/PW/COLOR) [facility] POCT-GLUCOSE METER 2020-07-17 10:51:00 LexieMattel [facility] XR CHEST 1 VIEW 2020-07-17 07:56:00 Dee Reyna [facility] PORTABLE/BEDSIDE [facility] POCT-GLUCOSE METER 2020-07-17 07:30:00 Lexie [facility] CBC W/PLT COUNT & AUTO 2020-07-17 05:42:00 Fannie Barcenas [facility] BASIC METABOLIC PANEL (7) 2020-07-17 05:40:00 Fannie Barcenas [facility] MAGNESIUM 2020-07-17 05:40:00 Fannie Barcenas [facility] BLOOD GAS, ARTERIAL 2020-07-17 05:20:[address] [facility] POCT-GLUCOSE METER 2020-07-16 21:14:[facility] 2020-07-16 17:30:00 [facility] VITAMIN B12 AND FOLATE 2020-07-16 13:48:[facility] 2020-07-16 13:48[facility], TIBC, % SAT. 2020-07-16 13:48:00 [facility] (WITHOUT [facility] Cente r POCT-GLUCOSE METER 2020-07-16 11:18:00 [facility] XR CHEST 1 VIEW 2020-07-16 09:16:00 Dee Reyna [facility] PORTABLE/BEDSIDE [facility] POCT-GLUCOSE METER 2020-07-16 07:11:00 [facility] BASIC METABOLIC PANEL (7) 2020-07-16 05:37:00 Fannie Barcenas [facility] MAGNESIUM 2020-07-16 05:37:00 Fannie Barcenas [facility] CBC W/PLT COUNT & AUTO 2020-07-16 05:37:00 Fannie Barcenas [facility] POCT-GLUCOSE METER 2020-07-15 22:26:00 LexieMattel [facility] POCT-GLUCOSE METER 2020-07-15 16:49:00 LexieMattel [facility] POCT-GLUCOSE METER 2020-07-15 11:10:00 LexieMattel [facility] POCT-GLUCOSE METER 2020-07-15 07:41:00 [facility] XR CHEST 1 VIEW 2020-07-15 07:11:00 Dee Reyna [facility] PORTABLE/BEDSIDE Medical [place] BASIC METABOLIC PANEL (7) 2020-07-15 05:21:00 Fannie Barcenas [facility] MAGNESIUM 2020-07-15 05:21:00 Fannie Barcenas Ursula [facility] CBC W/PLT COUNT & AUTO 2020-07-15 05:21:00 Fannie Barcenas Ursula [facility] POCT-GLUCOSE METER 2020-07-14 21:36:00 Lexie [facility] XR CHEST 1 VIEW 2020-07-14 04:39:00 Dee Reyna [facility] PORTABLE/BEDSIDE [facility] BASIC METABOLIC PANEL (7) 2020-07-14 04:21:00 Fannie Barcenas [facility] MAGNESIUM 2020-07-14 04:21:00 [facility] CBC W/PLT COUNT & AUTO 2020-07-14 04:21:00 Fannie Barcenas [facility] POCT-GLUCOSE METER 2020-07-13 21:26:00 Lexie [facility] XR CHEST 1 VIEW 2020-07-13 05:12:00 Dee Reyna [facility] PORTABLE/BEDSIDE [facility] BASIC METABOLIC PANEL (7) 2020-07-13 05:05:00 Fannie Barcenas [facility] MAGNESIUM 2020-07-13 05:05:00 Fannie Barcenas [facility] CBC W/PLT COUNT & AUTO 2020-07-13 05:05:00 Fannie Barcenas [facility] TRANSFUSION SERVICE 2020-07-12 18:04:31 Hunter Lawrence [facility] REPORT - SCAN Scanning [facility] POCT-GLUCOSE METER 2020-07-12 06:17:00 Tang Conklin [facility] BLOOD GAS, ARTERIAL 2020-07-12 04:28:00 Domenic Mena [facility] BASIC METABOLIC PANEL (7) 2020-07-12 04:28:00 Fannie Barcenas [facility] MAGNESIUM 2020-07-12 04:28:00 Fannie Barcenas [facility] CBC W/PLT COUNT & AUTO 2020-07-12 04:28:00 Fannie Barcenas [facility] XR CHEST 1 VIEW 2020-07-12 01:58:[address] [facility] s - PORTABLE/BEDSIDE Medical Center PREPARE LEUKO-REDUCED RBC 2020-07-11 23:54:00 Abhilash Lilianapedrito acuña [facility] POCT-GLUCOSE METER 2020-07-11 23:24:00 Tang Conklin [facility] TRANSFUSION SERVICE 2020-07-11 18:04:09 Provider, Default [facility] - REPORT - SCAN Scanning [facility] POCT-GLUCOSE METER 2020-07-11 18:01:00 Tang Conklin [facility] VASCULAR DIAGRAM -SCAN 2020-07-11 15:21:51 Provider, [facility] ECG 12-LEAD 2020-07-11 13:32:49 Unknown, Hl7 Doctor [facility] BASIC METABOLIC PANEL (7) 2020-07-11 11:37:00 Fannie Barcenas [facility] MAGNESIUM 2020-07-11 11:37:00 Fannie Barcenas [facility] BLOOD GAS, ARTERIAL 2020-07-11 11:37:00 Margaret Carmona [facility] POCT-GLUCOSE METER 2020-07-11 11:36:00 [facility]LO[facility], [facility] 2020-07-11 07:03:00 Dee Reyna [facility] OXYGEN SATURATION, 2020-07-11 07:03:00 Maria L Childeoma [facility] POCT-GLUCOSE METER 2020-07-11 05:24:00 Tang Conklin [facility] BASIC METABOLIC PANEL (7) 2020-07-11 03:16:[address] [facility] MAGNESIUM 2020-07-11 03:16:[address] [facility] PHOSPHORUS 2020-07-11 03:16:[address] [facility] CBC (HEMOGRAM ONLY) 2020-07-11 03:16:[address] [facility] BLOOD GAS, ARTERIAL 2020-07-11 03:16:00 Domenic Mena [facility] XR CHEST 1 VIEW 2020-07-11 02:30:[address] [facility] s - PORTABLE/BEDSIDE Medical Center POCT-GLUCOSE METER 2020-07-10 23:56:00 Tang Conklin [facility] PREPARE PLATELETS 2020-07-10 23:54:00 Tang Conklin [facility] TRANSFUSION SERVICE 2020-07-10 18:23:50 Hunter Lawrence [facility] REPORT SCAN Scanning [facility] BLOOD GAS, ARTERIAL 2020-07-10 17:58:00 [facility] POCT-GLUCOSE METER 2020-07-10 17:57:00 Tang Conklin [facility] BLOOD GAS, ARTERIAL 2020-07-10 12:31:00 Alino, Maria L Pompaeoma [facility] OXYGEN SATURATION, 2020-07-10 12:31:00 Alino, Maria L Airam [facility] BASIC METABOLIC PANEL (7) 2020-07-10 12:31:00 Alino, Maria L Ijeo polo [facility] MAGNESIUM 2020-07-10 12:31:00 Alino, Maria L Airam [facility] ECG 12-LEAD 2020-07-10 11:12:27 Unknown, Hl7 Doctor [facility] BLOOD GAS, ARTERIAL 2020-07-10 09:54:00 Alino, Maria L Airam [facility] BLOOD GAS, ARTERIAL 2020-07-10 07:32:00 Domenic Mena [facility] BLOOD GAS, ARTERIAL 2020-07-10 05:58:00 Amanda Sloan [facility] LACTIC ACID, ARTERIAL 2020-07-10 05:57:00 [facility], [facility] POCT-GLUCOSE METER 2020-07-10 05:48:00 Tang Conklin [facility] ECG 12-LEAD 2020-07-10 05:28:37 Unknown, Hl7 [facility] BLOOD GAS, ARTERIAL 2020-07-10 03:24:00 Sloan, [facility] LACTIC ACID, ARTERIAL 2020-07-10 03:24:00 Lsoan, [facility] BASIC METABOLIC PANEL (7) 2020-07-10 03:24:00 Ale [facility] MAGNESIUM 2020-07-10 03:24:[address] [facility] PHOSPHORUS 2020-07-10 03:24:[address] [facility] CBC (HEMOGRAM ONLY) 2020-07-10 03:24:00 Ale [facility] OXYGEN SATURATION, 2020-07-10 03:24:00 Luther [facility] TRANSFUSE LEUKO-REDUCED 2020-07-10 03:02:30 Abhilash, [facility] RED BLOOD CELLS [facility] XR CHEST 1 VIEW 2020-07-10 02:38:00 Ale [facility] PORTABLE/BEDSIDE [facility] BLOOD GAS, ARTERIAL 2020-07-10 00:17:00 Sloan, [facility] LACTIC ACID, ARTERIAL 2020-07-10 00:17:00 Sloan, [facility] POCT-GLUCOSE METER 2020-07-10 00:08:00 Tang Conklin [facility] CALCIUM, IONIZED 2020-07-09 22:50:00 [place], [facility] MAGNESIUM 2020-07-09 22:50:00 [place], [facility] PHOSPHORUS 2020-07-09 22:50:00 [place], [facility] BASIC METABOLIC PANEL (7) 2020-07-09 22:50:00 Abhilash, [facility] OXYGEN SATURATION, 2020-07-09 22:50:00 Sloan, [facility] LACTIC ACID, ARTERIAL 2020-07-09 22:50:00 Sloan, [facility] BLOOD GAS, ARTERIAL 2020-07-09 22:50:00 Sloan, [facility] SODIUM NA-STAT LAB 2020-07-09 22:50:00 Sloan, [facility] POTASSIUM-STAT LAB 2020-07-09 22:50:00 Sloan, [facility] GLUCOSE-STAT LAB 2020-07-09 22:50:00 Sloan, [facility] HGB/HCT (H&H) - STAT LAB 2020-07-09 22:50:00 Sloan, [facility] BLOOD GAS, ARTERIAL 2020-07-09 21:30:00 Abhilash, [facility] POTASSIUM 2020-07-09 20:57:[address] [facility] ECG 12-LEAD 2020-07-09 20:27:54 Unknown, Hl7 Doctor [facility] ECG 12-LEAD 2020-07-09 20:25:43 Unknown, Hl7 Doctor [facility] LACTIC ACID, ARTERIAL 2020-07-09 19:28:00 Fannie Barcenas [facility] HEMOGLOBIN AND HEMATOCRIT 2020-07-09 19:28:00 [facility], [facility] POCT-GLUCOSE METER 2020-07-09 19:26:00 Tang Conklin [facility] PREPARE RBC 2020-07-09 19:12:00 Shafii, Tang [facility] PREPARE PLASMA 2020-07-09 19:12:00 Tang Conklin [facility] BASIC METABOLIC PANEL (7) 2020-07-09 18:02:[address] [facility] [address] [facility] BLOOD GAS, ARTERIAL 2020-07-09 18:02:00 Ale [facility] MAGNESIUM 2020-07-09 18:02:[address] [facility] PHOSPHORUS 2020-07-09 18:02:[address] [facility] TROPONIN I 2020-07-09 18:02:[address] [facility] POCT-GLUCOSE METER 2020-07-09 18:01:00 Rubin [facility] LACTIC ACID, ARTERIAL 2020-07-09 17:55:00 Fannie Barcenas [facility] ECG 12-LEAD 2020-07-09 15:58:26 Unknown, Hl7 Doctor [facility] XR CHEST 1 VIEW 2020-07-09 15:55:00 Maria L Child Airam [facility] PORTABLE/BEDSIDE Medical Center BASIC METABOLIC PANEL (7) 2020-07-09 15:36:00 Danyell Maria Ldominique Melgaro ma [facility] MAGNESIUM 2020-07-09 15:36:00 Maria L Child Airam [facility] PHOSPHORUS 2020-07-09 15:36:00 Maria L Child Airam [facility] CALCIUM, IONIZED 2020-07-09 15:36:00 Alino, Maria L Airam [facility] LACTIC ACID, ARTERIAL 2020-07-09 15:36:00 Maria L Childeoma C [facility] PROTHROMBIN TIME/INR 2020-07-09 15:36:00 Maria L Child Airam [facility] APTT 2020-07-09 15:36:00 Maria L Child Airam [facility] FIBRINOGEN 2020-07-09 15:36:00 Maria L Child [facility] BLOOD GAS, ARTERIAL 2020-07-09 15:36:00 Maria L Child [facility] OXYGEN SATURATION, 2020-07-09 15:36:00 Maria L Child [facility] SODIUM NA-STAT LAB 2020-07-09 15:36:00 Maria L Child [facility] POTASSIUM-STAT LAB 2020-07-09 15:36:00 Maria L Child [facility] GLUCOSE-STAT LAB 2020-07-09 15:36:00 [facility]&H[facility] - STAT LAB 2020-07-09 15:36:00 Maria L Child [facility] CBC W/PLT COUNT & AUTO 2020-07-09 15:36:00 Maria L Child [facility] (CELLAVISION MANUAL DIFF) 2020-07-09 15:36:00 Maria L Child ma [facility] POCT-ACT 2020-07-09 14:21:00 Drake Beaulieu [facility] CALCIUM, IONIZED 2020-07-09 14:14:06 [facility] PLATELET COUNT 2020-07-09 14:14:06 [facility] BLOOD GAS, ARTERIAL 2020-07-09 14:14:06 [facility] SODIUM NA-STAT LAB 2020-07-09 14:14:06 [facility] POTASSIUM-STAT LAB 2020-07-09 14:14:06 [facility] GLUCOSE-STAT LAB 2020-07-09 14:14:06 [facility] HGB/HCT (H&H) - STAT LAB 2020-07-09 14:14:06 [facility] CBC W/PLT COUNT & AUTO 2020-07-09 14:14:00 SaraiDc pandey [facility] TRANSFUSE LEUKO-REDUCED 2020-07-09 13:59:45 [facility] TRANSFUSE LEUKO-REDUCED 2020-07-09 13:59:00 [facility] POCT-ACT 2020-07-09 13:16:00 [facility] POCT-ACT 2020-07-09 13:04:00 [facility] BLOOD GAS, ARTERIAL 2020-07-09 12:58:20 Rubin Tang [facility] SODIUM NA-STAT LAB 2020-07-09 12:58:20 Rubin Tang [facility] POTASSIUM-STAT LAB 2020-07-09 12:58:20 Rubin Tang [facility] GLUCOSE-STAT LAB 2020-07-09 12:58:20 Rubin [facility] HGB/HCT (H&H) - STAT LAB 2020-07-09 12:58:20 Tang Conklin [facility], [facility] PO[facility]-ACT 2020-07-09 12:39:00 [facility]LO[facility], ARTERIAL 2020-07-09 12:29:40 Tang Conklin [facility] SODIUM NA-STAT LAB 2020-07-09 12:29:40 Rubin Tang [facility] POTASSIUM-STAT LAB 2020-07-09 12:29:40 Rubin [facility] GLUCOSE-STAT LAB 2020-07-09 12:29:40 Rubin [facility] HGB/HCT (H&H) - STAT LAB 2020-07-09 12:29:[address] [facility] BLOOD GAS, ARTERIAL 2020-07-09 11:58:14 Tang Conklin [facility] SODIUM NA-STAT LAB 2020-07-09 11:58:14 Travonmanjinderwilmer [facility]OT[facility] 2020-07-09 11:58:14 Tang Conklin sarah [facility] GLUCOSE-STAT LAB 2020-07-09 11:58:14 Giselawilmer [facility] ([facility]&H) - STAT LAB 2020-07-09 11:58:[address] [facility] POCT-ACT 2020-07-09 11:34:00 Brittnee [facility] BLOOD GAS, ARTERIAL 2020-07-09 11:30:34 Tang Conklin [facility] SODIUM NA-STAT LAB 2020-07-09 11:30:34 Rubin Tang [facility] POTASSIUM-STAT LAB 2020-07-09 11:30:34 Rubin Tang [facility] GLUCOSE-STAT LAB 2020-07-09 11:30:34 Rubin [facility] HGB/HCT (H&H) - STAT LAB 2020-07-09 11:30:[address] [facility] POCT-ACT 2020-07-09 10:59:00 Brittnee [facility] BLOOD GAS, ARTERIAL 2020-07-09 10:58:09 Tang Conklin [facility] ANESTHESIA JOHN 2020-07-09 10:45:13 Ochoa [facility] POCT-ACT 2020-07-09 10:39:00 Brittnee [facility] POCT-ACT 2020-07-09 09:19:00 Drake Beaulieu [facility] CALCIUM, IONIZED 2020-07-09 08:51:03 Gwosdz, [facility] BLOOD GAS, ARTERIAL 2020-07-09 08:51:03 Gwosdz, [facility] SODIUM NA-STAT LAB 2020-07-09 08:51:03 Gwosdz, [facility] POTASSIUM-STAT LAB 2020-07-09 08:51:03 Gwosdz, [facility] GLUCOSE-STAT LAB 2020-07-09 08:51:03 Gwosdz, [facility] HGB/HCT (H&H) - STAT LAB 2020-07-09 08:51:03 Gwosdz, [facility] BYPASS,AORTO CORONARY 2020-07-09 07:48:00 Tang Conklin [facility] JOYCELYN/SVG [facility] ENDOSCOPIC HARVEST,VEIN 2020-07-09 07:48:00 Tang Conklin [facility] JOHN,3D 2020-07-09 07:48:00 Tang Conklin [facility] BASIC METABOLIC PANEL (7) 2020-07-09 04:11:00 Rohit Castro Guseunice castro [facility] MAGNESIUM 2020-07-09 04:11:00 El Gloria Guseunice Sevilla [facility] APTT 2020-07-09 04:11:00 Mike Jackson [facility] CBC W/PLT COUNT & AUTO 2020-07-09 04:11:00 El Havania Guseunice Sevilla [facility] TYPE AND SCREEN, 2020-07-09 03:51:00 Dc Aguilera [facility] AUTOMATED [facility] SARS-COV2/RT-PCR ([facility] & 2020-07-08 14:56:00 Stacia [facility] REF LABS) [facility] PLATELET AGGREGATION: 2020-07-08 12:08:00 [facility] APTT 2020-07-08 03:00:00 Mike Jackson [facility] BASIC METABOLIC PANEL (7) 2020-07-08 03:00:00 Khris Zachab barber [facility] MAGNESIUM 2020-07-08 03:00:00 Khris Ella [facility] CBC W/PLT COUNT & AUTO 2020-07-08 03:00:00 Khris [facility] DIFFERENTIAL [facility] TRANSFUSION SERVICE 2020-07-07 18:01:54 Provider, [facility] REPORT - SCAN [facility] ECG 12-LEAD 2020-07-07 06:17:08 Unknown, Hl7 [facility] APTT 2020-07-07 04:51:00 Renetta [facility] MAGNESIUM 2020-07-07 04:51:00 Renetta [facility] BASIC METABOLIC PANEL (7) 2020-07-07 04:51:00 Odilon Werner [facility] MAGNESIUM 2020-07-06 21:48:[address] [facility] COMPREHENSIVE METABOLIC 2020-07-06 21:48:[address] [facility] HEMOGLOBIN A1C 2020-07-06 21:48:[address] [facility] LIPID PANEL 2020-07-06 21:48:[address] [facility] PROTHROMBIN TIME/INR 2020-07-06 21:48:[address] [facility] APTT 2020-07-06 21:48:[address] [facility] TYPE AND SCREEN, 2020-07-06 21:48:00 [facility] CBC W/PLT COUNT & AUTO 2020-07-06 21:48:00 Dc Aguilera [facility] t [facility] DIFFERENTIAL [facility] PLATELET AGGREGATION: 2020-07-06 15:46:00 David Bishop [facility] FUNCTION SCREEN [facility] ECG 12-LEAD 2020-07-06 14:20:08 Unknown, Hl7 [facility] BASIC METABOLIC PANEL (7) 2020-07-06 04:24:00 Kinza Varela laxmi [facility] MAGNESIUM 2020-07-06 04:24:00 Kinza Varela [facility] PT/APTT 2020-07-06 04:24:00 Kinza Varela [facility] CBC W/PLT COUNT & AUTO 2020-07-06 04:24:00 [facility] BASIC METABOLIC PANEL (7) 2020-07-05 05:13:00 Mike Jackson [facility] MAGNESIUM 2020-07-05 05:13:00 Mike Jackson [facility] APTT 2020-07-05 05:13:00 Mike Jackson [facility] CBC W/PLT COUNT & AUTO 2020-07-05 05:13:00 Mike Jackson [facility] APTT 2020-07-04 22:03:00 Renetta [facility] CAROTID DOPPLER BILATERAL 2020-07-04 18:33:00 [place] [facility] VEIN MAPPING LEGS 2020-07-04 18:33:[address] [facility] - BILATERAL [facility] POCT-ACT 2020-07-04 11:55:00 [facility] L CATH / CORONARY 2020-07-04 10:55:00 Drake Beaulieu [facility] - ANGIOS / PCI [facility] PCI & IVUS 2020-07-04 10:55:00 Brittnee [facility] PLATELET AGGREGATION: 2020-07-04 08:43:00 Drake Beaulieu [facility] Claude - FUNCTION SCREEN [facility] BASIC METABOLIC PANEL (7) 2020-07-04 03:51:00 Mike Jackson [facility] MAGNESIUM 2020-07-04 03:51:00 Renetta Mike [facility] APTT 2020-07-04 03:51:00 Renetta [facility] CBC W/PLT COUNT & AUTO 2020-07-04 03:51:00 Renetta Mike [facility] POTASSIUM 2020-07-03 17:00:00 Renetta [facility] APTT 2020-07-03 17:00:00 Renetta [facility] MAGNESIUM 2020-07-03 17:00:00 Renetta [facility] 2D ECHO W/ DOPPLER 2020-07-03 12:47:[address] [facility] (CW/PW/COLOR) [facility] POTASSIUM 2020-07-03 12:17:00 Renetta [facility] MAGNESIUM 2020-07-03 12:17:00 [facility] NM MYOCARDIAL PERFUSION 2020-07-03 11:20:00 Drake Beaulieu [facility] - PET/CT (REST & STRESS) [facility] enter TREADMILL 2020-07-03 11:05:59 Unknown, Hl7 [facility] TOLERANCE(NON-NUCLEAR Medical Ce nter TREADMILL) ECG 12-LEAD 2020-07-03 11:02:25 Unknown, Hl7 [facility] TROPONIN I 2020-07-03 09:49:00 Renetta [facility] APTT 2020-07-03 09:49:00 Renetta [facility] TROPONIN I 2020-07-03 03:30:00 Renetta [facility] BASIC METABOLIC PANEL (7) 2020-07-03 03:30:00 Mike Jackson [facility] MAGNESIUM 2020-07-03 03:30:00 Mike Jackson [facility] LACTIC ACID, VENOUS 2020-07-03 03:30:00 Mike Jackson [facility] BLOOD GAS, VENOUS 2020-07-03 03:30:00 Mike Jackson [facility] APTT 2020-07-03 03:30:00 Mike Jackson [facility] CBC W/PLT COUNT & AUTO 2020-07-03 03:30:00 Mike Jackson [facility] LACTIC ACID, VENOUS 2020-07-02 22:38:00 Mike Jackson [facility] SARS-COV2/RT-PCR ([facility] & 2020-07-02 21:49:00 Mike Jackson [facility] LABS) [facility] ECG 12-LEAD 2020-07-02 21:46:18 Unknown, Hl7 [facility] XR CHEST 1 VIEW 2020-07-02 21:40:00 Mike Jackson [facility]/BEDSIDE [facility] LACTIC ACID, VENOUS 2020-07-02 21:40:00 Mike Jackson [facility] HEMOGLOBIN A1C 2020-07-02 21:28:00 Renetta [facility] B-TYPE NATRIURETIC FACTOR 2020-07-02 21:02:00 Mike Jackson [facility] (BNP) [facility] BASIC METABOLIC PANEL (7) 2020-07-02 21:02:00 Mike Jackson [facility] PT/APTT 2020-07-02 21:02:00 Mike Jackson [facility] PROTHROMBIN TIME/INR 2020-07-02 21:02:00 Mike Jackson [facility] TSH 2020-07-02 21:02:00 Mike Jackson [facility] LACTIC ACID, VENOUS 2020-07-02 21:02:00 Mike Jackson [facility] TROPONIN I 2020-07-02 21:02:00 Renetta [facility] HEPATIC FUNCTION PANEL 2020-07-02 21:02:00 [facility] LIPID PANEL 2020-07-02 21:02:00 [facility]UM 2020-07-02 21:02:00 [facility] CBC W/PLT COUNT & AUTO 2020-07-02 21:02:00 Renetta [facility] CARDIAC CATH REPORT - 2020-07-02 00:00:00 Provider, [facility] SCAN [facility] REPORT OF PROCEDURE - 2020-07-02 00:00:00 Provider, [facility] ENDOSCOPY SCAN [facility] RHYTHM STRIP - SCAN 2019-10-17 08:32:12 Provider, [facility] TRANSFUSION SERVICE 2019-10-13 18:03:35 Provider, [facility] - REPORT - SCAN [facility] POCT-GLUCOSE METER 2019-10-13 07:11:00 Carmen [facility] BASIC METABOLIC PANEL (7) 2019-10-13 04:59:00 Nelida Theodora ane [facility] HEMOGLOBIN AND HEMATOCRIT 2019-10-13 04:59:00 Dottie Krause [facility] POCT-GLUCOSE METER 2019-10-12 21:00:00 Carmen Ernst [facility] XR KNEE RIGHT 1 OR 2 2019-10-12 16:17:[address] [facility] TISSUE EXAM 2019-10-12 14:40:00 Carmen [facility] ANESTHESIA PERIPHERAL 2019-10-12 13:26:38 Patricia Ortiz [facility] BLOCK [facility] ANESTHESIA SPINAL BLOCK 2019-10-12 13:25:43 Patricia Ortiz [facility] ARTHROPLASTY,KNEE 2019-10-12 13:14:00 Carmen Ernst [facility] UNILATERAL [facility] ABORH, MANUAL 2019-10-12 10:58:00 Keith Mcbride [facility] Plan of Care Planned Activity Planned Date Details Comments Source Future Scheduled 2023-07-[address] [facility] Test 00:00:00 (procedure) [code = [facility] 61784081] Future Scheduled 2020-06-05 INFLUENZA VACCINE (#1) [facility] 00:[facility]:00 [code = INFLU[facility]ZA Medical Ce nter VACCINE (#1)] Future Scheduled 2019-10-05 Medicare IPPE (WELCOME [facility] - Test 00:00:00 TO MEDICARE) [code = [facility] Medicare IPPE (WELCOME TO MEDICARE)] Future Scheduled [address] [facility] - Test 00:00:00 0-64 YRS (1 of 1 - Medical C enter PPSV23) [code = PNEUMOCOCCAL VACCINE 0-64 YRS (1 of 1 - PPSV23)] Future Scheduled 1960 Screening for KAR [facility] - Test 00:00:00 malignant neoplasm of Medica l Center colon (procedure) [code = 506498457] Encounters Start End Encounter Admission Attending Care Care Encounter Source Date/Time Date/Time Type Type Clinicians Facility Department ID 2019-12-05 2019-12-05 Office KARON Goyal [id number] 12:08:28 12:18:28 Visit Ernst AMBULATOR [id number] Y [id number] [id number] 2019-10-27 2019-10-27 Office KARON Goyal [id number] 10:26:14 11:26:31 Visit Ernst AMBULATOR 350.1.13.21 Y 0.2.7.2.686 [id number] 2019-07-04 2019-07-04 Office KARON Goyal [id number] 12:43:07 14:30:53 Visit Ernst AMBULATOR 350.1.13.21 Y 0.2.7.2.686 [id number] Results Test Description Test Time Test Comments Results Result Sour e Comments RAD, CHEST, 2 2020-07-31 Reason for VIEWS 13:16:00 Exam:->[facility]sur [facility] [place] [facility] : 1960 Sex: M FINAL REPORT INDICATION: postsurgical follow up COMPARISON: None TECHNIQUE: Frontal and lateral views of the chest. FINDINGS: Lungs and pleura: Clear lungs. No effusion.Heart and mediastinum: Normal heart size. Unremarkable mediastinal contours.Osseous structures: No acute abnormality.Additio nal findings: None. IMPRESSION: No acute intrathoracic abnormality. Signed: Sabiha Zee Verified Date/Time: 07/31/2020 13:16:51 Reading Location: [facility] Radiology Reading Room chest 2 views 2020-07-31 Interface, External [facility] 13:16:00 Ris In - 07/31/2020 - Med ical 1:19 PM CDTFINAL Center REPORT INDICATION: postsurgical follow up COMPARISON: None TECHNIQUE: Frontal and lateral views of the chest. FINDINGS: Lungs and pleura: Clear lungs. No effusion.Heart and mediastinum: Normal heart size. Unremarkable mediastinal contours.Osseous structures: No acute abnormality.Additio nal findings: None. IMPRESSION: No acute intrathoracic abnormality. Signed: Sabiha Zee Verified Date/Time: 07/31/2020 13:16:51 Reading Location: [facility] Radiology Reading Room IAC CATH 2020-07-27 Ordered by an [facility] REPORT - SCAN 12:48:59 unspecified - Medical provider. Center EKG 12 lead 2020-07-18 Interface, External [facility] 17:29:11 Ris In - 07/18/2020 - Med ical 5:29 PM Center CDTVentricular Rate 80 BPMAtrial Rate 80 BPMP-R Interval 206 msQRS Duration 80 msQ-T Interval 390 msQTC Calculation(Tacho) 449 msP [place]atham 33 degreesR [place]atham -2 degreesT [place] -7 degreesNormal sinus rhythmNormal ECGWhen compared with ECG of 10-JUL-2020 11:12,Sinus rhythm has replaced Atrial fibrillationVent. rate has decreased BY 73 BPMST elevation now present in Lateral leadsConfirmed by Ajtih Gamboa ([id number]) on 07/18/2020 5:29:08 PM POC-Glucose meter 2020-07-18 11:26:00 Test Item Value Reference Range Interpretation Comme nts POC-Glucose Meter (test code = 118 mg/dL 70-110 H : TESTED AT [facility] [address] [facility] [address], [address]: Electric Meter Repairer/Techni norah ID = [id number] for EDITH KAY Lab Interpretation (test code = Abnormal 09376-1) [facility] [id number] 11:26:00 Test Item Value Reference Range Interpretation Comments POC-GLUCOSE METER 118 mg/dL 70-110 H : TESTED A T [facility] [address] (BEAKER) (test code = [facility] Clifford [facility], 1538) [address]: Electric Meter Repairer/Techni norah ID = [id number] for EDITH KAY POCT-GLUCOSE [id number] 09:19:00 Test Item Value Reference Range Interpretation Comments POC-GLUCOSE METER 106 mg/dL 70-110 : [facility] ([facility] (test code = [facility], 1538) [address]: Electric Meter Repairer/Techni norah ID = [id number] for EDIHT KAY Basic Metabolic [id number] 06:55:00 Test Item Value Reference Range Interpretation Comments Sodium (test code = 133 meq/L 136-145 L 2951-2) Potassium (test code = 3.4 meq/L 3.5-5.1 L 2823-3) Chloride (test code = 92 meq/L 98-107 L 5-0) CO2 (test code = 31 meq/L 22-29 H 2028-9) BUN (test code = 12 mg/dL 7-21 3094-0) Creatinine (test code 1.09 mg/dL 0.57-1.25 = 2160-0) Glucose (test code = 112 mg/dL 70-105 H 2345-7) Calcium (test code = 8.1 mg/dL 8.4-10.2 L 09858-2) EGFR (test code = 69 mL/min/1.73 [place] [address]-1) NOT ACCURATE CREATININE CLEARANCE IN PREDICTING GLOMERULAR FILTRATION RATE . ESTIMATED GFR I S NOT APPLICABLE FOR DIALYSIS PATIENTS. SHERON (test code = SHERON) Electric Meter Repairer ID - YANETH M Lab Interpretation Abnormal (test code = 77114-1) [facility]esium2020-10-14 06:55:00 Test Item Value Reference Range Interpretation Comments Magnesium (test code = 1.8 mg/dL 1.6-2.6 13698-9) SHERON (test code = SHERON) Electric Meter Repairer ID - YANETH M Lab Interpretation (test Normal code = 73167-4) [facility] METABOLIC [id number] 06:55:00 Test Item Value Reference Range Interpretation Comments SODIUM (BEAKER) 133 meq/L 136-145 L (test code = 381) POTASSIUM (BEAKER) 3.4 meq/L 3.5-5.1 L (test code = 379) CHLORIDE (BEAKER) 92 meq/L 98-107 L (test code = 382) CO2 (BEAKER) (test 31 meq/L 22-29 H code = 355) BLOOD UREA NITROGEN 12 mg/dL 7-21 (BEAKER) (test code = 354) CREATININE (BEAKER) 1.09 mg/dL 0.57-1.25 (test code = 358) GLUCOSE RANDOM 112 mg/dL 70-105 H (BEAKER) (test code = 652) CALCIUM (BEAKER) 8.1 mg/dL 8.4-10.2 L (test code = 697) EGFR (BEAKER) (test 69 mL/min/1.73 ESTIMA ROSA ISELA GFR IS code = 1092) sq m NOT ACCURATE CREATININE CLEARANCE IN PREDICTING GLOMERULAR FILTRATION RATE . ESTIMATED GFR I S NOT APPLICABLE FOR DIALYSIS PATIEN TS. Electric Meter Repairer ID - YANETH [id number] 06:55:00 Test Item Value Reference Range Interpretation Comments MAGNESIUM (BEAKER) (test code = 1.8 mg/dL 1.6-2.6 627) Electric Meter Repairer ID - YANETH MCBC with platelet count + automated [id number] 06:33:00 Test Item Value Reference Range Interpretation Comments WBC (test code = 6690-2) 8.2 3.5- 10.5 K/L RBC (test code = 789-8) 2.61 4.63- 6.08 M/L L MCHC (test code = 786-4) 31.7 32.3- 36.5 GM/DL L Hematocrit (test code = 4544-3) 24.3 % 40.1-51 L MCV (test code = 787-2) 93.1 fL 79-92.2 H MCH (test code = 785-6) 29.5 pg 25.7-32.2 RDW (test code = 788-0) 15.9 % 11.6-14.4 H Platelets (test code = 777-3) 307 150- 450 K/CU MM MPV (test code = 59324-7) 11.4 fL 9.4-12.4 nRBC (test code = 413) 1 0- 0 /100 WBC H % Neutros (test code = 429) 68 % % Lymphs (test code = 430) 13 % % Monos (test code = 431) 11 % % Eos (test code = 432) 6 % % Baso (test code = 437) 1 % # Neutros (test code = 670) 5.60 1.78- 5.38 K/L H # Lymphs (test code = 414) 1.07 1.32- 3.57 K/L L # Monos (test code = 415) 0.89 0.30- 0.82 K/L H # Eos (test code = 416) 0.48 0.04- 0.54 K/L # Baso (test code = 417) 0.07 0.01- 0.08 K/L Immature Granulocytes-Relative 1 % 0-1 (test code = 2801) Lab Interpretation (test code = Abnormal 97524-2) [facility] & AUTO [id number] 06:33:00 Test Item Value Reference Range Interpretation Comments WHITE BLOOD CELL COUNT (BEAKER) 8.2 K/ L 3.5-10.5 (test code = 775) RED BLOOD CELL COUNT (BEAKER) 2.61 M/ L 4.63-6.08 L (test code = 761) HEMOGLOBIN (BEAKER) (test code = 7.7 GM/DL 13.7-17.5 L 410) HEMATOCRIT (BEAKER) (test code = 24.3 % 40.1-51.0 L 411) MEAN CORPUSCULAR VOLUME (BEAKER) 93.1 fL 79.0-92.2 H (test code = 753) MEAN CORPUSCULAR HEMOGLOBIN 29.5 pg 25.7-32.2 (BEAKER) (test code = 751) MEAN CORPUSCULAR HEMOGLOBIN CONC 31.7 GM/DL 32.3-36.5 L (BEAKER) (test code = 752) RED CELL DISTRIBUTION WIDTH 15.9 % 11.6-14.4 H (BEAKER) (test code = 412) PLATELET COUNT (BEAKER) (test 307 K/CU MM 150-450 code = 756) MEAN PLATELET VOLUME (BEAKER) 11.4 fL 9.4-12.4 (test code = 754) NUCLEATED RED BLOOD CELLS 1 /100 WBC 0-0 H (BEAKER) (test code = 413) NEUTROPHILS RELATIVE PERCENT 68 % (BEAKER) (test code = 429) LYMPHOCYTES RELATIVE PERCENT 13 % (BEAKER) (test code = 430) MONOCYTES RELATIVE PERCENT 11 % (BEAKER) (test code = 431) EOSINOPHILS RELATIVE PERCENT 6 % (BEAKER) (test code = 432) BASOPHILS RELATIVE PERCENT 1 % (BEAKER) (test code = 437) NEUTROPHILS ABSOLUTE COUNT 5.60 K/ L 1.78-5.38 H (BEAKER) (test code = 670) LYMPHOCYTES ABSOLUTE COUNT 1.07 K/ L 1.32-3.57 L (BEAKER) (test code = 414) MONOCYTES ABSOLUTE COUNT (BEAKER) 0.89 K/ L 0.30-0.82 H (test code = 415) EOSINOPHILS ABSOLUTE COUNT 0.48 K/ L 0.04-0.54 (BEAKER) (test code = 416) BASOPHILS ABSOLUTE COUNT (BEAKER) 0.07 K/ L 0.01-0.08 (test code = 417) IMMATURE GRANULOCYTES-RELATIVE 1 % 0-1 PERCENT (KADEAKER) (test code = 2801) RAD, CHEST, 1 VIEW, NON [id number] 05:50:00Reason for exam:->chest tubes/ vapothermShould this be performed at the bedside?->YesFINAL REPORT Chest one view. Clinical history: chest tubes/ vapotherm Compari son: Chest radiograph 07/17/2020. Technique: A single frontal view of the chest was obtained. Findings: The cardiomediastinal contours are stable. There are small bilateral pleural effusions. There ismild discoid atelectasis in the left lung base. There is no pulmonary edema or pneumothorax. There are healed fractures of the left posterior third and fourth ribs. Signed: Joyce Ragland Verified Date/Time: 07/18/2020 05:50:00 XR chest 1 view portable / [id number] 05:50:00Interface, External Ris In - 07/18/2020 5:52 AM CDTFINAL REPORT Chest one view. Clinical history: chest tubes/ vapotherm Comparison: Chest radiograph 07/17/2020. Technique: A single frontal view of the chest was obtained. Findings: The cardiomediastinal contours are stable. There are small bilateral pleural effusions. There is mild discoid atelectasis in the left lung base. There is no pulmonary edema or pneumothorax. There are healed fractures of the left posterior third and fourth ribs. Signed: Joyce Ragland Verified Date/Time: 07/18/2020 05:50:00 [facility] [id number] 21:14:00 Test Item Value Reference Range Interpretation Comments POC-GLUCOSE METER 128 mg/dL 70-110 H : TESTED A T [facility] [address] (MARIO ALBERTO) (test code = [place], 1538) [address]: Electric Meter Repairer/Techni norah ID = [id number] for Nataliia Lowe Osmolality, [id number] 17:58:00 Test Item Value Reference Range Interpretation Comments Osmolality Serum (test code = 269 275- 295 mOsm/kg L 2692-2) Lab Interpretation (test code = Abnormal 78930-0) [facility] HospitalOSMOLALITY, [id number] 17:58:00 Test Item Value Reference Range Interpretation Comments OSMOLALITY, SERUM (BEAKER) (test 269 mOsm/kg 275-295 L code = 615) Potassium, random [id number] 17:44:00 Test Item Value Reference Range Interpretation Comments Potassium Urine 71.0 meq/L (test code = 2828-2) SHERON (test code = Reference Range: No SHERON) NormalsOperator ID - BS [facility] random [id number] 17:44:00 Test Item Value Reference Range Interpretation Comments Sodium Urine (test 40 meq/L code = 2955-3) SHERON (test code = Reference Range: No SHERON) NormalsOperator ID - BS [facility] HospitalUrea Nitrogen, random [id number] 17:44:00 Test Item Value Reference Range Interpretation Comments Urea Nitrogen, Ur 475 mg/dL (test code = 3095-7) SHERON (test code = Reference Range: No SHERON) NormalsOperator ID - BS [facility] HospitalPOTASSIUM, RANDOM [id number] 17:44:00 Test Item Value Reference Range Interpretation Comments POTASSIUM URINE (BEAKER) (test 71.0 meq/L code = 195) Reference Range: No NormalsOperator ID - BSSODIUM, RANDOM [id number] 17:44:00 Test Item Value Reference Range Interpretation Comments SODIUM URINE (BEAKER) (test code = 40 meq/L 243) Reference Range: No NormalsOperator ID - BSUREA NITROGEN, RANDOM [id number] 17:44:00 Test Item Value Reference Range Interpretation Comments UREA NITROGEN URINE (BEAKER) (test 475 mg/dL code = 538) Reference Range: No NormalsOperator ID - [id number] Echo W/Doppler(CW/PW/Color) 2020-07-17 17:24:10Ejection FractionSLEH ECHO HEARTLAB MKCKESSON CPACSInterface, External Ris In - 07/17/2020 5:24 PM CDTTransthoracic Echocardiography Report (TTE) Demographics Patient Name [place] AMIN Date of Study 07/17/2020 MCKINLEY LEE Gender Male Visit Number [id number] Race Unknown Number [id number] Number Date of 1960 Referring Roshan Owen MD Physician Age 60 year(s) 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 Normal left ventricular chamber size. Normal wall thickness. Normal overall left ventricular systolicfunction. No apparent segmental wall motion abnormalities. Estimated [...] Grade 2 diastolic dysfunction (moderately increased LA pressure). Left Atrium LA size is jvwl-lj-baiiwgukwx enlarged . Right Ventricle Normal right ventricle structure and function. Right Atrium Normal right atrium. Aortic Valve Mild AoV cusp thickening. AoV cusp mobility is normal . No evidence of aortic regurgitation. Mitral Valve Mild MV leaflet thickening. Tricuspid Valve Normal TV structure and function. A trace of tricuspid regurgitation. Estimated peak systolic pressure is at least 30-35 mmHg. Peak systolic pressure may be underestimated; partial [...] m/s E/A Ratio: 1.79 Peak Gradient: 3.92 mmHgDeceleration Time: 233.6 msec MV Howard. Peak: Tissue [...] TR Velocity: 2.39 m/s TR Gradient: 22.93 mmHgSaint Elizabeth Community HospitalPOCT- GLUCOSE [id number] 16:56:00 Test Item Value Reference Range Interpretation Comments POC-GLUCOSE METER 105 mg/dL 70-110 : TESTED A T [facility] 6720 (theScore) (test code = [place] [facility], 1538) 10774: Electric Meter Repairer/Techni norah ID = [id number] for KASSIDY TAVARES Osmolality, [id number] 16:29:00 Test Item Value Reference Range Interpretation Comments Osmolality, Ur (test code = 442 50-1,200 mOsm/kg mOsm/kg 2695-5) Lab Interpretation (test code Normal = 68502-7) [facility] HospitalOSMOLALITY, [id number] 16:29:00 Test Item Value Reference Range Interpretation Comments OSMOLALITY URINE (AKER) (test 442 mOsm/kg 50-1,200 mOsm/kg code = 614) POCT-GLUCOSE [id number] 11:03:00 Test Item Value Reference Range Interpretation Comments POC-GLUCOSE METER 116 mg/dL 70-110 H : TESTED A T [facility] 6720 (theScore) (test code = [place] [facility], 1538) 637[address]: Electric Meter Repairer/Techni norah ID = [id number] for KASSIDY TAVARES RAD, CHEST, 1 VIEW, NON [id number] 09:24:00Reason for exam:->chest tubes/ vapothermShould this be performed at the bedside?->YesFINAL REPORT CLINICAL HISTORY: chest tubes/ vapotherm TECHNIQUE: 1 view of th e chest. COMPARISON: 07/16/2020 IMPRESSION: The right chest tube has been removed. There is no definitive evidence for pneumothorax. Right lower chest wall subcutaneous emphysema is again seen. Mild bandlike lung opacities are similar appearing. Trace bilateral pleural effusions are again noted. The ca rdiomediastinal silhouette is magnified by technique with sternotomy wires. Signed: Felipe Sandhu MDReport Verified Date/Time: 07/17/2020 09:24:02 Reading Location: [facility] Radiology Reading Room POCT-GLUCOSE [id number] 07:42:00 Test Item Value Reference Range Interpretation Comments POC-GLUCOSE METER 137 mg/dL 70-110 H : TESTED A T [facility] 6720 (BEAKER) (test code = [facility] [place] [facility], 1538) 91773: Electric Meter Repairer/Techni norah ID = [id number] for KASSIDY TAVARES BASIC METABOLIC [id number] 07:26:00 Test Item Value Reference Range Interpretation Comments SODIUM (BEAKER) 129 meq/L 136-145 L (test code = 381) POTASSIUM (BEAKER) 3.5 meq/L 3.5-5.1 (test code = 379) CHLORIDE (BEAKER) 93 meq/L 98-107 L (test code = 382) CO2 (BEAKER) (test 29 meq/L 22-29 code = 355) BLOOD UREA NITROGEN 11 mg/dL 7-21 (BEAKER) (test code = 354) CREATININE (BEAKER) 1.00 mg/dL 0.57-1.25 (test code = 358) GLUCOSE RANDOM 112 mg/dL 70-105 H (BEAKER) (test code = 652) CALCIUM (BEAKER) 8.0 mg/dL 8.4-10.2 L (test code = 697) EGFR (BEAKER) (test 76 mL/min/1.73 ESTIMA ROSA ISELA GFR IS code = 1092) sq m NOT ACCURATE CREATININE CLEARANCE IN PREDICTING GLOMERULAR FILTRATION RATE . ESTIMATED GFR I S NOT APPLICABLE FOR DIALYSIS PATIEN TS. Electric Meter Repairer ID - PIAYA [id number] 07:26:00 Test Item Value Reference Range Interpretation Comments MAGNESIUM (BEAKER) (test code = 1.8 mg/dL 1.6-2.6 627) Electric Meter Repairer ID - KELECHI LCBC W/PLT COUNT & AUTO [id number] 07:14:00 Test Item Value Reference Range Interpretation Comments WHITE BLOOD CELL COUNT (BEAKER) 8.6 K/ L 3.5-10.5 (test code = 775) RED BLOOD CELL COUNT (BEAKER) 2.61 M/ L 4.63-6.08 L (test code = 761) HEMOGLOBIN (BEAKER) (test code = 7.8 GM/DL 13.7-17.5 L 410) HEMATOCRIT (BEAKER) (test code = 24.3 % 40.1-51.0 L 411) MEAN CORPUSCULAR VOLUME (BEAKER) 93.1 fL 79.0-92.2 H (test code = 753) MEAN CORPUSCULAR HEMOGLOBIN 29.9 pg 25.7-32.2 (BEAKER) (test code = 751) MEAN CORPUSCULAR HEMOGLOBIN CONC 32.1 GM/DL 32.3-36.5 L (BEAKER) (test code = 752) RED CELL DISTRIBUTION WIDTH 15.7 % 11.6-14.4 H (BEAKER) (test code = 412) PLATELET COUNT (BEAKER) (test 287 K/CU MM 150-450 code = 756) MEAN PLATELET VOLUME (BEAKER) 11.7 fL 9.4-12.4 (test code = 754) NUCLEATED RED BLOOD CELLS 1 /100 WBC 0-0 H (BEAKER) (test code = 413) NEUTROPHILS RELATIVE PERCENT 70 % (BEAKER) (test code = 429) LYMPHOCYTES RELATIVE PERCENT 12 % (BEAKER) (test code = 430) MONOCYTES RELATIVE PERCENT 10 % (BEAKER) (test code = 431) EOSINOPHILS RELATIVE PERCENT 5 % (BEAKER) (test code = 432) BASOPHILS RELATIVE PERCENT 1 % (BEAKER) (test code = 437) NEUTROPHILS ABSOLUTE COUNT 6.03 K/ L 1.78-5.38 H (BEAKER) (test code = 670) LYMPHOCYTES ABSOLUTE COUNT 1.03 K/ L 1.32-3.57 L (BEAKER) (test code = 414) MONOCYTES ABSOLUTE COUNT (BEAKER) 0.87 K/ L 0.30-0.82 H (test code = 415) EOSINOPHILS ABSOLUTE COUNT 0.44 K/ L 0.04-0.54 (BEAKER) (test code = 416) BASOPHILS ABSOLUTE COUNT (BEAKER) 0.06 K/ L 0.01-0.08 (test code = 417) IMMATURE GRANULOCYTES-RELATIVE 2 % 0-1 H PERCENT (BEAKER) (test code = 2801) Blood gas, [id number] 06:13:00 Test Item Value Reference Range Interpretation Comments pH, Arterial (test code = 7.50 7.35-7.45 H 2744-1) pCO2, Arterial (test code 38 35- 45 mm Hg = 2019-8) pO2, Arterial (test code = 51 80- 90 mm Hg L 2703-7) O2 Sat, Arterial (test 89.0 % 96-97 L code = 2708-6) HCO3, Arterial (test code 29 mmol/L 21-29 = 1960-4) Base Excess, Arterial 5.6 mmol/L -2-3 H (test code = 1925-7) Patient Temperature (test 37.0 code = 8310-5) FIO2 (test code = 1819) 21 SHERON (test code = SHERON) Please obtain room air ABG. Lab Interpretation (test Abnormal code = 01498-2) [facility] HospitalBLOOD GAS, [id number] 06:13:00 Test Item Value Reference Range Interpretation Comments PH ARTERIAL (BEAKER) (test code = 7.50 7.35-7.45 H 383) PCO2 ARTERIAL (BEAKER) (test code 38 mm Hg 35-45 = 384) PO2 ARTERIAL (BEAKER) (test code = 51 mm Hg 80-90 L 385) O2 SATURATION ARTERIAL (BEAKER) 89.0 % 96.0-97.0 L (test code = 386) HCO3 ARTERIAL (BEAKER) (test code 29 mmol/L 21-29 = 388) BASE EXCESS ARTERIAL (BEAKER) 5.6 mmol/L -2.0-3.0 H (test code = 387) PATIENT TEMPERATURE (BEAKER) (test 37.0 code = 1818) FIO2 (BEAKER) (test code = 1819) 21.0 Please obtain room air ABG.POCT-GLUCOSE [id number] 21:26:00 Test Item Value Reference Range Interpretation Comments POC-GLUCOSE METER 123 mg/dL 70-110 H : TESTED A T [facility] 6720 (BEAKER) (test code = [place]STINA [place], 1538) 737[address]: Electric Meter Repairer/Techni norah ID = [id number] for SHANA SKY SE POCT-GLUCOSE [id number] 17:43:00 Test Item Value Reference Range Interpretation Comments POC-GLUCOSE METER 104 mg/dL 70-110 : TESTED A T [facility] 6720 (BEAKER) (test code = [place]INA [place], 1538) 34138: Electric Meter Repairer/Techni norah ID = [id number] for MALORIE JOSEPHWITHA [id number] 14:53:00 Test Item Value Reference Range Interpretation Comments Ferritin (test code = 214.98 ng/mL 5-275 2276-4) SHERON (test code = SHERON) Electric Meter Repairer ID - BS Lab Interpretation (test Normal code = 99501-7) [facility] HospitalVitamin B12 and [id number] 14:53:00 Test Item Value Reference Range Interpretation Comments Vitamin B12 (test code = 1276 pg/mL 213-816 H 2132-9) Folate (test code = 2284-8) 6.50 ng/mL >=7.00 L SHERON (test code = SHERON) Electric Meter Repairer ID - BS Lab Interpretation (test Abnormal code = 45378-4) [facility] HospitalFERRITIN2020-10-12 14:53:00 Test Item Value Reference Range Interpretation Comments FERRITIN (BEAKER) (test code = 214.98 ng/mL 5.00-275.00 361) Electric Meter Repairer ID - BSVITAMIN B12 AND [id number] 14:53:00 Test Item Value Reference Range Interpretation Comments VITAMIN B12 (BEAKER) (test code = 1276 pg/mL 213-816 H 774) FOLATE (BEAKER) (test code = 362) 6.50 ng/mL >=7.00 L Electric Meter Repairer ID - BSIron, TIBC, % sat. (without ferritin)2020-07-16 14:18:00 Test Item Value Reference Range Interpretation Comments Iron (test code = 2498-4) 30.0 ug/dL 40-160 L TIBC (test code = 2500-7) 336 ug/dL 250-450 Iron % Saturation (test 9 % 20-55 L code = 2502-3) SHERON (test code = SHERON) Electric Meter Repairer ID - AAHAMID Lab Interpretation (test Abnormal code = 82429-4) [facility] HospitalIRON, TIBC, % SAT. (WITHOUT FERRITIN)2020-07-16 14:18:00 Test Item Value Reference Range Interpretation Comments IRON (BEAKER) (test code = 547) 30.0 ug/dL 40.0-160.0 L TOTAL IRON BINDING CAPACITY 336 ug/dL 250-450 (BEAKER) (test code = 769) IRON % SATURATION (2) (BEAKER) 9 % 20-55 L (test code = 2590) Electric Meter Repairer ID - AAHAMIDPOCT-GLUCOSE [id number] 11:30:00 Test Item Value Reference Range Interpretation Comments POC-GLUCOSE METER 115 mg/dL 70-110 H : [facility] (theScore) (test code = [place], 1538) 51185: Electric Meter Repairer/Techni norah ID = [id number] for GABRIEL CONNORJASON RAD, CHEST, 1 VIEW, NON [id number] 11:19:00Reason for exam:->chest tubes/ vapothermShould this be performed at the bedside?->YesFINAL REPORT CLINICAL HISTORY: chest tubes/ vapotherm TECHNIQUE: 1 view of the chest. COMPARISON: 07/15/2020 IMPRESSION: The right chest tube is unchanged. The earlier trace right apical pneumothorax is not definitively seen. Right lower chest wall subcutaneous emphysema appearsdecreased. Mild bilateral lung opacities and small bilateral pleural effusions are unchanged. Cardiomegaly is again seen poststernotomy. Chronic rib fractures are again seen. Signed: Felipe Sandhu MDReport Verified Date/Time: 07/16/2020 11:19:22 Reading Location: [facility] Radiology Reading Room POCT-GLUCOSE [id number] 07:23:00 Test Item Value Reference Range Interpretation Comments POC-GLUCOSE METER 114 mg/dL 70-110 H : TESTED A T [facility] 6720 (BEAKER) (test code = [facility] [employer] [facility], 1538) 81729: Electric Meter Repairer/Techni norah ID = [id number] for DILSHAD JOSEPH BASIC METABOLIC [id number] 07:16:00 Test Item Value Reference Range Interpretation Comments SODIUM (BEAKER) 129 meq/L 136-145 L (test code = 381) POTASSIUM (BEAKER) 3.3 meq/L 3.5-5.1 L (test code = 379) CHLORIDE (BEAKER) 93 meq/L 98-107 L (test code = 382) CO2 (BEAKER) (test 29 meq/L 22-29 code = 355) BLOOD UREA NITROGEN 14 mg/dL 7-21 (BEAKER) (test code = 354) CREATININE (BEAKER) 0.95 mg/dL 0.57-1.25 (test code = 358) GLUCOSE RANDOM 116 mg/dL 70-105 H (BEAKER) (test code = 652) CALCIUM (BEAKER) 8.2 mg/dL 8.4-10.2 L (test code = 697) EGFR (BEAKER) (test 80 mL/min/1.73 ESTIMA ROSA ISELA GFR IS code = 1092) sq m NOT ACCURATE CREATININE CLEARANCE IN PREDICTING GLOMERULAR FILTRATION RATE . ESTIMATED GFR I S NOT APPLICABLE FOR DIALYSIS PATIEN TS. Electric Meter Repairer ID - YANETH [id number] 07:16:00 Test Item Value Reference Range Interpretation Comments MAGNESIUM (BEAKER) (test code = 2.0 mg/dL 1.6-2.6 627) Electric Meter Repairer ID - YANETH MCBC W/PLT COUNT & AUTO [id number] 06:27:00 Test Item Value Reference Range Interpretation Comments WHITE BLOOD CELL COUNT (BEAKER) 9.5 K/ L 3.5-10.5 (test code = 775) RED BLOOD CELL COUNT (BEAKER) 2.58 M/ L 4.63-6.08 L (test code = 761) HEMOGLOBIN (BEAKER) (test code = 7.6 GM/DL 13.7-17.5 L 410) HEMATOCRIT (BEAKER) (test code = 24.1 % 40.1-51.0 L 411) MEAN CORPUSCULAR VOLUME (BEAKER) 93.4 fL 79.0-92.2 H (test code = 753) MEAN CORPUSCULAR HEMOGLOBIN 29.5 pg 25.7-32.2 (BEAKER) (test code = 751) MEAN CORPUSCULAR HEMOGLOBIN CONC 31.5 GM/DL 32.3-36.5 L (BEAKER) (test code = 752) RED CELL DISTRIBUTION WIDTH 15.4 % 11.6-14.4 H (BEAKER) (test code = 412) PLATELET COUNT (BEAKER) (test 242 K/CU MM 150-450 code = 756) MEAN PLATELET VOLUME (BEAKER) 11.3 fL 9.4-12.4 (test code = 754) NUCLEATED RED BLOOD CELLS 1 /100 WBC 0-0 H (BEAKER) (test code = 413) NEUTROPHILS RELATIVE PERCENT 69 % (BEAKER) (test code = 429) LYMPHOCYTES RELATIVE PERCENT 13 % (BEAKER) (test code = 430) MONOCYTES RELATIVE PERCENT 10 % (BEAKER) (test code = 431) EOSINOPHILS RELATIVE PERCENT 5 % (BEAKER) (test code = 432) BASOPHILS RELATIVE PERCENT 1 % (BEAKER) (test code = 437) NEUTROPHILS ABSOLUTE COUNT 6.57 K/ L 1.78-5.38 H (BEAKER) (test code = 670) LYMPHOCYTES ABSOLUTE COUNT 1.22 K/ L 1.32-3.57 L (BEAKER) (test code = 414) MONOCYTES ABSOLUTE COUNT (BEAKER) 0.97 K/ L 0.30-0.82 H (test code = 415) EOSINOPHILS ABSOLUTE COUNT 0.46 K/ L 0.04-0.54 (BEAKER) (test code = 416) BASOPHILS ABSOLUTE COUNT (BEAKER) 0.06 K/ L 0.01-0.08 (test code = 417) IMMATURE GRANULOCYTES-RELATIVE 2 % 0-1 H PERCENT (BEAKER) (test code = 2801) POCT-GLUCOSE [id number] 22:38:00 Test Item Value Reference Range Interpretation Comments POC-GLUCOSE METER 130 mg/dL 70-110 H : TESTED A T [facility] 6720 (BEAKER) (test code = [place], 1538) 305[address]: Electric Meter Repairer/Techni norah ID = [id number] for JUDITHSHAWANDA WILLIAM POCT-GLUCOSE [id number] 17:00:00 Test Item Value Reference Range Interpretation Comments POC-GLUCOSE METER 116 mg/dL 70-110 H : TESTED A T [facility] 6720 (BEAKER) (test code = [place], 1538) 738[address]: Electric Meter Repairer/Techni norah ID = [id number] for EDITH KAY POCT-GLUCOSE [id number] 11:22:00 Test Item Value Reference Range Interpretation Comments POC-GLUCOSE METER 141 mg/dL 70-110 H : TESTED A T [facility] 6720 (BEAKER) (test code = [facility]STINA [place] [facility], 1538) 648[address]: Electric Meter Repairer/Techni norah ID = [id number] for EDITH KAY POCT-GLUCOSE [id number] 07:53:00 Test Item Value Reference Range Interpretation Comments POC-GLUCOSE METER 114 mg/dL 70-110 H : TESTED A T [facility] 6720 (KADEAKER) (test code = CHRISTINA H[place] [facility], 1538) 62097: Electric Meter Repairer/Techni norah ID = [id number] for EDITH KAY RAD, CHEST, 1 VIEW, NON [id number] 07:52:00Reason for exam:->chest tubes/ vapothermShould this be performed at the bedside?->YesFINAL REPORT RAD, CHEST, 1 VIEW, NON DEPT CLINICAL INDICATION: chest tubes/ va potherm TECHNIQUE: AP view of the chest COMPARISON: Radiograph 07/14/2020 FINDINGS: Recent sternotomy with right basilar chest tube unchanged. There is a trace right apical pneumothorax on the current exam. Persistent trace bilateral pleural effusions. No new focal consolidation. Cardiomegaly and pulmonary vascular congestion are unchanged. IMPRESSION:Trace right apical pneumothorax. Signed: Fariba Martinez Verified Date/Time: 07/15/2020 07:52:20 C METABOLIC [id number] 06:33:00 Test Item Value Reference Range Interpretation Comments SODIUM (BEAKER) 130 meq/L 136-145 L (test code = 381) POTASSIUM (BEAKER) 3.8 meq/L 3.5-5.1 (test code = 379) CHLORIDE (BEAKER) 96 meq/L 98-107 L (test code = 382) CO2 (BEAKER) (test 25 meq/L 22-29 code = 355) BLOOD UREA NITROGEN 15 mg/dL 7-21 (BEAKER) (test code = 354) CREATININE (BEAKER) 0.91 mg/dL 0.57-1.25 (test code = 358) GLUCOSE RANDOM 110 mg/dL 70-105 H (BEAKER) (test code = 652) CALCIUM (BEAKER) 7.9 mg/dL 8.4-10.2 L (test code = 697) EGFR (BEAKER) (test 84 mL/min/1.73 ESTIMA ROSA ISELA GFR IS code = 1092) sq m NOT ACCURATE CREATININE CLEARANCE IN PREDICTING GLOMERULAR FILTRATION RATE . ESTIMATED GFR I S NOT APPLICABLE FOR DIALYSIS PATIEN TS. Electric Meter Repairer ID - PITIGIST [id number] 06:23:00 Test Item Value Reference Range Interpretation Comments MAGNESIUM (BEAKER) (test code = 2.0 mg/dL 1.6-2.6 627) Electric Meter Repairer ID - KELECHI LCBC W/PLT COUNT & AUTO [id number] 05:56:00 Test Item Value Reference Range Interpretation Comments WHITE BLOOD CELL COUNT (BEAKER) 9.0 K/ L 3.5-10.5 (test code = 775) RED BLOOD CELL COUNT (BEAKER) 2.52 M/ L 4.63-6.08 L (test code = 761) HEMOGLOBIN (BEAKER) (test code = 7.5 GM/DL 13.7-17.5 L 410) HEMATOCRIT (BEAKER) (test code = 23.7 % 40.1-51.0 L 411) MEAN CORPUSCULAR VOLUME (BEAKER) 94.0 fL 79.0-92.2 H (test code = 753) MEAN CORPUSCULAR HEMOGLOBIN 29.8 pg 25.7-32.2 (BEAKER) (test code = 751) MEAN CORPUSCULAR HEMOGLOBIN CONC 31.6 GM/DL 32.3-36.5 L (BEAKER) (test code = 752) RED CELL DISTRIBUTION WIDTH 14.9 % 11.6-14.4 H (BEAKER) (test code = 412) PLATELET COUNT (BEAKER) (test 210 K/CU MM 150-450 code = 756) MEAN PLATELET VOLUME (BEAKER) 11.1 fL 9.4-12.4 (test code = 754) NUCLEATED RED BLOOD CELLS 2 /100 WBC 0-0 H (BEAKER) (test code = 413) NEUTROPHILS RELATIVE PERCENT 68 % (BEAKER) (test code = 429) LYMPHOCYTES RELATIVE PERCENT 12 % (BEAKER) (test code = 430) MONOCYTES RELATIVE PERCENT 11 % (BEAKER) (test code = 431) EOSINOPHILS RELATIVE PERCENT 6 % (BEAKER) (test code = 432) BASOPHILS RELATIVE PERCENT 1 % (BEAKER) (test code = 437) NEUTROPHILS ABSOLUTE COUNT 6.07 K/ L 1.78-5.38 H (BEAKER) (test code = 670) LYMPHOCYTES ABSOLUTE COUNT 1.08 K/ L 1.32-3.57 L (BEAKER) (test code = 414) MONOCYTES ABSOLUTE COUNT (BEAKER) 0.98 K/ L 0.30-0.82 H (test code = 415) EOSINOPHILS ABSOLUTE COUNT 0.50 K/ L 0.04-0.54 (BEAKER) (test code = 416) BASOPHILS ABSOLUTE COUNT (BEAKER) 0.07 K/ L 0.01-0.08 (test code = 417) IMMATURE GRANULOCYTES-RELATIVE 3 % 0-1 H PERCENT (BEAKER) (test code = 2801) POCT-GLUCOSE [id number] 21:49:00 Test Item Value Reference Range Interpretation Comments POC-GLUCOSE METER 121 mg/dL 70-110 H : TESTED A T [facility] 6720 (BEAKER) (test code = [place], 1538) [address]: Electric Meter Repairer/Techni norah ID = [id number] for [facility] BASIC METABOLIC [id number] 05:04:00 Test Item Value Reference Range Interpretation Comments SODIUM (BEAKER) 133 meq/L 136-145 L (test code = 381) POTASSIUM (BEAKER) 4.1 meq/L 3.5-5.1 (test code = 379) CHLORIDE (BEAKER) 96 meq/L 98-107 L (test code = 382) CO2 (BEAKER) (test 27 meq/L 22-29 code = 355) BLOOD UREA NITROGEN 21 mg/dL 7-21 (BEAKER) (test code = 354) CREATININE (BEAKER) 0.98 mg/dL 0.57-1.25 (test code = 358) GLUCOSE RANDOM 115 mg/dL 70-105 H (BEAKER) (test code = 652) CALCIUM (BEAKER) 8.0 mg/dL 8.4-10.2 L (test code = 697) EGFR (BEAKER) (test 78 mL/min/1.73 ESTIMA ROSA ISELA GFR IS code = 1092) sq m NOT ACCURATE CREATININE CLEARANCE IN PREDICTING GLOMERULAR FILTRATION RATE . ESTIMATED GFR I S NOT APPLICABLE FOR DIALYSIS PATIEN [id number] 05:04:00 Test Item Value Reference Range Interpretation Comments MAGNESIUM (BEAKER) (test code = 2.1 mg/dL 1.6-2.6 627) RAD, CHEST, 1 VIEW, NON [id number] 04:51:00Reason for exam:->chest tubes/ vapothermShould this be performed at the bedside?->YesFINAL REPORT Chest one view. Clinical history: chest tubes/ vapotherm Compari son: Chest radiograph 07/13/2020. Technique: A single frontal view of the chest was obtained. Findings:The patient is status post median sternotomy. There has been interval removal of left chest tube. There is a right chest tube in place.The cardiomediastinal contours are stable. There is mild pulmonary vascular congestion, decreased in the interval. There are small bilateral pleural effusions, with associated compressive atelectasis. There is no definite pneumothorax.There is subcutaneous emphysemain the right lower chest wall.There are multiple healed left-sided rib fractures. Signed: Joyce Ragland Verified Date/Time: 07/14/2020 04:51:20 CBC W/PLT COUNT & AUTO DIFFERENTIAL 2020-07-14 04:39:00 Test Item Value Reference Range Interpretation Comments WHITE BLOOD CELL COUNT (BEAKER) 9.9 K/ L 3.5-10.5 (test code = 775) RED BLOOD CELL COUNT (BEAKER) 2.67 M/ L 4.63-6.08 L (test code = 761) HEMOGLOBIN (BEAKER) (test code = 8.1 GM/DL 13.7-17.5 L 410) HEMATOCRIT (BEAKER) (test code = 24.8 % 40.1-51.0 L 411) MEAN CORPUSCULAR VOLUME (BEAKER) 92.9 fL 79.0-92.2 H (test code = 753) MEAN CORPUSCULAR HEMOGLOBIN 30.3 pg 25.7-32.2 (BEAKER) (test code = 751) MEAN CORPUSCULAR HEMOGLOBIN CONC 32.7 GM/DL 32.3-36.5 (BEAKER) (test code = 752) RED CELL DISTRIBUTION WIDTH 14.6 % 11.6-14.4 H (BEAKER) (test code = 412) PLATELET COUNT (BEAKER) (test 200 K/CU MM 150-450 code = 756) MEAN PLATELET VOLUME (BEAKER) 11.2 fL 9.4-12.4 (test code = 754) NUCLEATED RED BLOOD CELLS 2 /100 WBC 0-0 H (BEAKER) (test code = 413) NEUTROPHILS RELATIVE PERCENT 69 % (BEAKER) (test code = 429) LYMPHOCYTES RELATIVE PERCENT 12 % (BEAKER) (test code = 430) MONOCYTES RELATIVE PERCENT 12 % (BEAKER) (test code = 431) EOSINOPHILS RELATIVE PERCENT 5 % (BEAKER) (test code = 432) BASOPHILS RELATIVE PERCENT 1 % (BEAKER) (test code = 437) NEUTROPHILS ABSOLUTE COUNT 6.81 K/ L 1.78-5.38 H (BEAKER) (test code = 670) LYMPHOCYTES ABSOLUTE COUNT 1.16 K/ L 1.32-3.57 L (BEAKER) (test code = 414) MONOCYTES ABSOLUTE COUNT (BEAKER) 1.16 K/ L 0.30-0.82 H (test code = 415) EOSINOPHILS ABSOLUTE COUNT 0.48 K/ L 0.04-0.54 (BEAKER) (test code = 416) BASOPHILS ABSOLUTE COUNT (BEAKER) 0.09 K/ L 0.01-0.08 H (test code = 417) IMMATURE GRANULOCYTES-RELATIVE 2 % 0-1 H PERCENT (BEAKER) (test code = 2801) POCT-GLUCOSE [id number] 01:33:00 Test Item Value Reference Range Interpretation Comments POC-GLUCOSE METER 134 mg/dL 70-110 H : TESTED A T [facility] 6720 (BEAKER) (test code = [place], 1538) [id number]: Electric Meter Repairer/Techni norah ID = [id number] for GO NZALES III, THONY BASIC METABOLIC [id number] 07:23:00 Test Item Value Reference Range Interpretation Comments SODIUM (BEAKER) 133 meq/L 136-145 L (test code = 381) POTASSIUM (BEAKER) 3.6 meq/L 3.5-5.1 (test code = 379) CHLORIDE (BEAKER) 95 meq/L 98-107 L (test code = 382) CO2 (BEAKER) (test 30 meq/L 22-29 H code = 355) BLOOD UREA NITROGEN 19 mg/dL 7-21 (BEAKER) (test code = 354) CREATININE (BEAKER) 0.96 mg/dL 0.57-1.25 (test code = 358) GLUCOSE RANDOM 116 mg/dL 70-105 H (BEAKER) (test code = 652) CALCIUM (BEAKER) 7.8 mg/dL 8.4-10.2 L (test code = 697) EGFR (BEAKER) (test 79 mL/min/1.73 ESTIMA ROSA ISELA GFR IS code = 1092) sq m NOT ACCURATE CREATININE CLEARANCE IN PREDICTING GLOMERULAR FILTRATION RATE . ESTIMATED GFR I S NOT APPLICABLE FOR DIALYSIS PATIEN TS. Electric Meter Repairer ID - [id number] 06:58:00 Test Item Value Reference Range Interpretation Comments MAGNESIUM (BEAKER) (test code = 2.1 mg/dL 1.6-2.6 627) Electric Meter Repairer ID - [id number] W/PLT COUNT & AUTO [id number] 06:41:00 Test Item Value Reference Range Interpretation Comments WHITE BLOOD CELL COUNT (BEAKER) 8.9 K/ L 3.5-10.5 (test code = 775) RED BLOOD CELL COUNT (BEAKER) 2.72 M/ L 4.63-6.08 L (test code = 761) HEMOGLOBIN (BEAKER) (test code = 8.0 GM/DL 13.7-17.5 L 410) HEMATOCRIT (BEAKER) (test code = 25.1 % 40.1-51.0 L 411) MEAN CORPUSCULAR VOLUME (BEAKER) 92.3 fL 79.0-92.2 H (test code = 753) MEAN CORPUSCULAR HEMOGLOBIN 29.4 pg 25.7-32.2 (BEAKER) (test code = 751) MEAN CORPUSCULAR HEMOGLOBIN CONC 31.9 GM/DL 32.3-36.5 L (BEAKER) (test code = 752) RED CELL DISTRIBUTION WIDTH 14.6 % 11.6-14.4 H (BEAKER) (test code = 412) PLATELET COUNT (BEAKER) (test 174 K/CU MM 150-450 code = 756) MEAN PLATELET VOLUME (BEAKER) 11.9 fL 9.4-12.4 (test code = 754) NUCLEATED RED BLOOD CELLS 1 /100 WBC 0-0 H (BEAKER) (test code = 413) NEUTROPHILS RELATIVE PERCENT 70 % (BEAKER) (test code = 429) LYMPHOCYTES RELATIVE PERCENT 9 % (BEAKER) (test code = 430) MONOCYTES RELATIVE PERCENT 14 % (BEAKER) (test code = 431) EOSINOPHILS RELATIVE PERCENT 6 % (BEAKER) (test code = 432) BASOPHILS RELATIVE PERCENT 1 % (BEAKER) (test code = 437) NEUTROPHILS ABSOLUTE COUNT 6.21 K/ L 1.78-5.38 H (BEAKER) (test code = 670) LYMPHOCYTES ABSOLUTE COUNT 0.78 K/ L 1.32-3.57 L (BEAKER) (test code = 414) MONOCYTES ABSOLUTE COUNT (BEAKER) 1.20 K/ L 0.30-0.82 H (test code = 415) EOSINOPHILS ABSOLUTE COUNT 0.51 K/ L 0.04-0.54 (BEAKER) (test code = 416) BASOPHILS ABSOLUTE COUNT (BEAKER) 0.04 K/ L 0.01-0.08 (test code = 417) IMMATURE GRANULOCYTES-RELATIVE 1 % 0-1 PERCENT (BEAKER) (test code = 2801) RAD, CHEST, 1 VIEW, NON [id number] 05:53:00Reason for exam:->chest tubes/ vapothermShould this be performed at the bedside?->YesFINAL REPORT Chest one view. Clinical history: chest tubes/ vapotherm Compari son: Chest radiograph 07/12/2020. Technique: A single frontal view of the chest was obtained. Findings:The patient is status post median sternotomy and cardiac surgery. There are bilateral chest tubes.There has been interval removal of right IJ vascular sheath and mediastinal drain.The cardiomediastinal contours are stable. There are improved bilateral congestive changes with mild residual pulmonaryvascular congestion. There is a small left pleural effusion. There are small bibasilar opacities compatible with subsegmental and discoid atelectasis. There is no definite pneumothorax. There is subcutaneous emphysema in the right lateral chest wall. Signed: Joyce Ragland Verified Date/Time: 07/13/2020 05:53:50 POCT-GLUCOSE [id number] 06:29:00 Test Item Value Reference Range Interpretation Comments POC-GLUCOSE METER 113 mg/dL 70-110 H : TESTED A T [facility] 6720 (BEAKER) (test code = [facility], 1538) 74[address]: Electric Meter Repairer/Techni norah ID = [id number] for JAMIE TA BASIC METABOLIC [id number] 06:20:00 Test Item Value Reference Range Interpretation Comments SODIUM (BEAKER) 130 meq/L 136-145 L (test code = 381) POTASSIUM (BEAKER) 3.6 meq/L 3.5-5.1 (test code = 379) CHLORIDE (BEAKER) 97 meq/L 98-107 L (test code = 382) CO2 (BEAKER) (test 26 meq/L 22-29 code = 355) BLOOD UREA NITROGEN 15 mg/dL 7-21 (BEAKER) (test code = 354) CREATININE (BEAKER) 0.83 mg/dL 0.57-1.25 (test code = 358) GLUCOSE RANDOM 119 mg/dL 70-105 H (BEAKER) (test code = 652) CALCIUM (BEAKER) 7.7 mg/dL 8.4-10.2 L (test code = 697) EGFR (BEAKER) (test 94 mL/min/1.73 ESTIMA ROSA ISELA GFR IS code = 1092) sq m NOT ACCURATE CREATININE CLEARANCE IN PREDICTING GLOMERULAR FILTRATION RATE . ESTIMATED GFR I S NOT APPLICABLE FOR DIALYSIS PATIEN TS. Electric Meter Repairer ID - YANETH [id number] 06:15:00 Test Item Value Reference Range Interpretation Comments MAGNESIUM (BEAKER) (test code = 2.1 mg/dL 1.6-2.6 627) Electric Meter Repairer ID - YANETH [facility] W/PLT COUNT & AUTO [id number] 04:58:00 Test Item Value Reference Range Interpretation Comments WHITE BLOOD CELL COUNT (BEAKER) 8.9 K/ L 3.5-10.5 (test code = 775) RED BLOOD CELL COUNT (BEAKER) 2.59 M/ L 4.63-6.08 L (test code = 761) HEMOGLOBIN (BEAKER) (test code = 8.0 GM/DL 13.7-17.5 L 410) HEMATOCRIT (BEAKER) (test code = 23.5 % 40.1-51.0 L 411) MEAN CORPUSCULAR VOLUME (BEAKER) 90.7 fL 79.0-92.2 (test code = 753) MEAN CORPUSCULAR HEMOGLOBIN 30.9 pg 25.7-32.2 (BEAKER) (test code = 751) MEAN CORPUSCULAR HEMOGLOBIN CONC 34.0 GM/DL 32.3-36.5 (BEAKER) (test code = 752) RED CELL DISTRIBUTION WIDTH 14.3 % 11.6-14.4 (BEAKER) (test code = 412) PLATELET COUNT (BEAKER) (test 144 K/CU MM 150-450 L code = 756) MEAN PLATELET VOLUME (BEAKER) 11.4 fL 9.4-12.4 (test code = 754) NUCLEATED RED BLOOD CELLS 1 /100 WBC 0-0 H (BEAKER) (test code = 413) NEUTROPHILS RELATIVE PERCENT 79 % (BEAKER) (test code = 429) LYMPHOCYTES RELATIVE PERCENT 7 % (BEAKER) (test code = 430) MONOCYTES RELATIVE PERCENT 10 % (BEAKER) (test code = 431) EOSINOPHILS RELATIVE PERCENT 3 % (BEAKER) (test code = 432) BASOPHILS RELATIVE PERCENT 0 % (BEAKER) (test code = 437) NEUTROPHILS ABSOLUTE COUNT 7.05 K/ L 1.78-5.38 H (BEAKER) (test code = 670) LYMPHOCYTES ABSOLUTE COUNT 0.58 K/ L 1.32-3.57 L (BEAKER) (test code = 414) MONOCYTES ABSOLUTE COUNT (BEAKER) 0.89 K/ L 0.30-0.82 H (test code = 415) EOSINOPHILS ABSOLUTE COUNT 0.25 K/ L 0.04-0.54 (BEAKER) (test code = 416) BASOPHILS ABSOLUTE COUNT (BEAKER) 0.04 K/ L 0.01-0.08 (test code = 417) IMMATURE GRANULOCYTES-RELATIVE 1 % 0-1 PERCENT (BEAKER) (test code = 2801) BLOOD GAS, [id number] 04:37:00 Test Item Value Reference Range Interpretation Comments PH ARTERIAL (BEAKER) (test code = 7.48 7.35-7.45 H 383) PCO2 ARTERIAL (BEAKER) (test code 39 mmHg 35-45 = 384) PO2 ARTERIAL (BEAKER) (test code = 88 mmHg 80-90 385) O2 SATURATION ARTERIAL (BEAKER) 97.3 % 96.0-97.0 H (test code = 386) HCO3 ARTERIAL (BEAKER) (test code 28 mmol/L 21-29 = 388) BASE EXCESS ARTERIAL (BEAKER) 4.4 mmol/L -2.0-3.0 H (test code = 387) PATIENT TEMPERATURE (BEAKER) (test 36.7 C code = 1818) FIO2 (BEAKER) (test code = 1819) 36.0 % RAD, CHEST, 1 VIEW, NON [id number] 03:32:00Reason for exam:->chest tubes/ vapothermShould this be performed at the bedside?->YesFINAL REPORT Chest one view. Clinical history: chest tubes/ vapotherm Compari son: Chest radiograph 07/11/2020. Technique: A single frontal view of the chest was obtained. Findings:Support lines and tubes are in satisfactory positions.The cardiomediastinal contours are stable. There is pulmonary vascular congestion. There are small bilateral pleural effusions with subsegmental a telectasis. There is no pneumothorax. Signed: [facility] Verified Date/Time: 07/12/202003:32:05 Prepare Leuko-Red [id number] 23:54:00 Test Item Value Reference Range Interpretation Comments CROSSMATCH (test code = 2264) COMPATIBLE Unit ABO (test code = O Pos 4609992) UNIT NUMBER (test code = [id number] 934-0) Status (test code = 8661168) TX_TIMEINCHART Blood Bank Product (test code RED BLOOD CELLS = 2263) PRODUCT CODE (test code = N6638W78 933-2) [facility] [id number] 23:35:00 Test Item Value Reference Range Interpretation Comments POC-GLUCOSE METER 125 mg/dL 70-110 H : TESTED A T [facility] 6720 (BEAKER) (test code = [facility], 1538) 92147: Electric Meter Repairer/Techni norah ID = [id number] for JAMIE TA POCT-GLUCOSE [id number] 18:12:00 Test Item Value Reference Range Interpretation Comments POC-GLUCOSE METER 127 mg/dL 70-110 H : TESTED A T [facility] 6720 (BEAKER) (test code = [facility], 1538) 78198: Electric Meter Repairer/Techni norah ID = [id number] for Adrianne Monzon BASIC METABOLIC [id number] 12:24:00 Test Item Value Reference Range Interpretation Comments SODIUM (BEAKER) 129 meq/L 136-145 L (test code = 381) POTASSIUM (BEAKER) 4.1 meq/L 3.5-5.1 (test code = 379) CHLORIDE (BEAKER) 97 meq/L 98-107 L (test code = 382) CO2 (BEAKER) (test 24 meq/L 22-29 code = 355) BLOOD UREA NITROGEN 22 mg/dL 7-21 H (BEAKER) (test code = 354) CREATININE (BEAKER) 1.07 mg/dL 0.57-1.25 (test code = 358) GLUCOSE RANDOM 131 mg/dL 70-105 H (BEAKER) (test code = 652) CALCIUM (BEAKER) 7.7 mg/dL 8.4-10.2 L (test code = 697) EGFR (BEAKER) (test 70 mL/min/1.73 ESTIMA ROSA ISELA GFR IS code = 1092) sq m NOT ACCURATE CREATININE CLEARANCE IN PREDICTING GLOMERULAR FILTRATION RATE . ESTIMATED GFR I S NOT APPLICABLE FOR DIALYSIS PATIEN TS. Electric Meter Repairer ID - JAEL [id number] 12:17:00 Test Item Value Reference Range Interpretation Comments MAGNESIUM (BEAKER) (test code = 2.2 mg/dL 1.6-2.6 627) Electric Meter Repairer ID - JAEL CBLOOD GAS, [id number] 11:58:00 Test Item Value Reference Range Interpretation Comments PH ARTERIAL (BEAKER) (test code = 7.43 7.35-7.45 383) PCO2 ARTERIAL (BEAKER) (test code 39 mmHg 35-45 = 384) PO2 ARTERIAL (BEAKER) (test code = 107 mmHg 80-90 H 385) O2 SATURATION ARTERIAL (BEAKER) 98.1 % 96.0-97.0 H (test code = 386) HCO3 ARTERIAL (BEAKER) (test code 25 mmol/L 21-29 = 388) BASE EXCESS ARTERIAL (BEAKER) 1.0 mmol/L -2.0-3.0 (test code = 387) PATIENT TEMPERATURE (BEAKER) (test 36.8 C code = 1818) FIO2 (BEAKER) (test code = 1819) 80.0 % POCT-GLUCOSE [id number] 11:48:00 Test Item Value Reference Range Interpretation Comments POC-GLUCOSE METER 132 mg/dL 70-110 H : TESTED A T [facility] 6720 (BEAKER) (test code = [facility] [place], 1538) [address]: Electric Meter Repairer/Techni norah ID = [id number] for Adrianne Monzon PLATELET AGGREGATION: FUNCTION [id number] 08:03:00 Test Item Value Reference Range Interpretation Comments [id number] Dee Dukes i s a (BEAKER) (test code = MD Shannan [facility] rosa isela 7271) (electronic result. signature) Previous result was Dee Campbell MD (electronic signature) on 07/09/2020 at 1019 CDT PLATELET COUNT AGG 179 K/CU MM 150-450 This is a (BEAKER) (test code = [facility] rosa isela 2655) result. Previous result was 179 K/CU MM on 07/09/2020 at 1019 CDT ADP (BEAKER) (test 47 % 62-100 L This is a code = 4654) corrected result. Previous result was 47 % on 07/09/2020 at 1019 CDT PLATELET RICH 206 k/cu mm 200-300 This is a PLASMA(BEAKER) (test correct ed code = 213) result. Previous result was 206 k/cu mm on 07/09/2020 at 1019 CDT PLATELET FUNCTION Decreased SCREEN INTERPRETATION aggregation with (BEAKER) (test code = ADP which 9981) indicates platelet dysfunction that may be due to medication effect, uremia, or other platelet function disorders. Clinical correlation is required. Platelet Function Screen results may be falsely low with platelet counts<75,000/cu mm.Electric Meter Repairer ID- [id number] ID - [id number] ID - [id number] due to QC investigation. Spoke to RN ID:[id number] Aggregation: Function [id number] 08:03:00Pathologist:Comment: This is a corrected result. Previous result was Dee Campbell MD (electronic signature) on 07/09/[address] [place], [place] [address]PlateletsComment: This is a corrected result. Previous result was 179 K/CU MM on 07/09/[address] [place], [place] [address]ADPComment: This is a corrected result. Previous result was 47 % on 07/09/[address] [place], [place] [address]Platelet Rich PlasmaComment: This is a corrected result. Previous result was 206 k/cu mm on 07/09/[address] [place], [place] [address]Plt. Function Screen InterpretationCHI BENEWAH COMMUNITY HOSPITALPlatelet Function Screen results may be falsely low with platelet counts<75,000/cu mm.Electric Meter Repairer ID - [id number] ID - [id number] ID - [id number] due to QC investigation. Spoke to RN ID:[id number] [facility] HospitalOxygen saturation, [id number] 07:23:00 Test Item Value Reference Range Interpretation Comments O2 Saturation (Measured) (test code = 65.6 % 84596-2) [facility] HospitalOXYGEN SATURATION, [id number] 07:23:00 Test Item Value Reference Range Interpretation Comments O2 SATURATION (MEASURED) (BEAKER) 65.6 % (test code = 1455) BLOOD GAS, [id number] 07:23:00 Test Item Value Reference Range Interpretation Comments PH ARTERIAL (BEAKER) (test code = 7.41 7.35-7.45 383) PCO2 ARTERIAL (BEAKER) (test code 44 mmHg 35-45 = 384) PO2 ARTERIAL (BEAKER) (test code = 110 mmHg 80-90 H 385) O2 SATURATION ARTERIAL (BEAKER) 97.8 % 96.0-97.0 H (test code = 386) HCO3 ARTERIAL (BEAKER) (test code 27 mmol/L 21-29 = 388) BASE EXCESS ARTERIAL (BEAKER) 2.2 mmol/L -2.0-3.0 (test code = 387) PATIENT TEMPERATURE (BEAKER) (test 38.5 C code = 1818) FIO2 (BEAKER) (test code = 1819) 100.0 % RAD, CHEST, 1 VIEW, NON [id number] 07:09:00Reason for exam:->chest tubes/ vapothermShould this be performed at the bedside?->YesFINAL REPORT RAD, CHEST, 1 VIEW, NON DEPT INDICATION: chest tubes/ vapotherm C OMPARISON: Prior day's exam FINDINGS: Portable frontal view of the chest. IMPRESSION: Support Lines: Stable. Lungs and pleura: Stable interstitial congestion. Small right effusion. No pneumothorax.Heart and mediastinum: Stable contours. Stable surgical changes.Additional findings: None. Signed: Annabelle hernandes JR, Robert MDReport Verified Date/Time: 07/11/2020 07:09:03 Reading Location: [address] Transitional Reading Room POCT-GLUCOSE [id number] 05:36:00 Test Item Value Reference Range Interpretation Comments POC-GLUCOSE METER 122 mg/dL 70-110 H : [facility] ([facility] (test code = [facility] [place], 1538) [address]: Electric Meter Repairer/Techni norah ID = [id number] for Lang Gonzalez BASIC METABOLIC [id number] 04:28:00 Test Item Value Reference Range Interpretation Comments SODIUM (BEAKER) 133 meq/L 136-145 L (test code = 381) POTASSIUM (BEAKER) 3.9 meq/L 3.5-5.1 (test code = 379) CHLORIDE (BEAKER) 99 meq/L 98-107 (test code = 382) CO2 (BEAKER) (test 24 meq/L 22-29 code = 355) BLOOD UREA NITROGEN 22 mg/dL 7-21 H (BEAKER) (test code = 354) CREATININE (BEAKER) 1.10 mg/dL 0.57-1.25 (test code = 358) GLUCOSE RANDOM 114 mg/dL 70-105 H (BEAKER) (test code = 652) CALCIUM (BEAKER) 7.8 mg/dL 8.4-10.2 L (test code = 697) EGFR (BEAKER) (test 68 mL/min/1.73 ESTIMA ROSA ISELA GFR IS code = 1092) sq m NOT ACCURATE CREATININE CLEARANCE IN PREDICTING GLOMERULAR FILTRATION RATE . ESTIMATED GFR I S NOT APPLICABLE FOR DIALYSIS PATIEN TS. Electric Meter Repairer ID - YANETH [id number] 04:27:00 Test Item Value Reference Range Interpretation Comments Phosphorus (test code = 3.1 mg/dL 2.3-4.7 2777-1) SHERON (test code = SHERON) Electric Meter Repairer REESE WOLFE M Lab Interpretation (test Normal code = 54318-3) [facility]PHOSPHORUS2020-10-07 04:27:00 Test Item Value Reference Range Interpretation Comments PHOSPHORUS (BEAKER) (test code = 3.1 mg/dL 2.3-4.7 604) Electric Meter Repairer ID - YANETH [id number] 04:27:00 Test Item Value Reference Range Interpretation Comments MAGNESIUM (BEAKER) (test code = 2.0 mg/dL 1.6-2.6 627) Electric Meter Repairer REESE - YANETH [facility] (Hemogram only)2020-07-11 04:10:00 Test Item Value Reference Range Interpretation Comments WBC (test code = 6690-2) 11.0 3.5- 10.5 K/L H RBC (test code = 789-8) 2.91 4.63- 6.08 M/L L MCHC (test code = 786-4) 33.0 32.3- 36.5 GM/DL L Hematocrit (test code = 4544-3) 26.4 % 40.1-51 L MCV (test code = 787-2) 90.7 fL 79-92.2 MCH (test code = 785-6) 29.9 pg 25.7-32.2 RDW (test code = 788-0) 14.9 % 11.6-14.4 H Platelets (test code = 777-3) 175 150- 450 K/CU MM MPV (test code = 40708-5) 11.9 fL 9.4-12.4 nRBC (test code = 413) 1 0- 0 /100 WBC H Lab Interpretation (test code = Abnormal 63473-5) [facility] (HEMOGRAM ONLY)2020-07-11 04:10:00 Test Item Value Reference Range Interpretation Comments WHITE BLOOD CELL COUNT (BEAKER) 11.0 K/ L 3.5-10.5 H (test code = 775) RED BLOOD CELL COUNT (BEAKER) 2.91 M/ L 4.63-6.08 L (test code = 761) HEMOGLOBIN (BEAKER) (test code = 8.7 GM/DL 13.7-17.5 L 410) HEMATOCRIT (BEAKER) (test code = 26.4 % 40.1-51.0 L 411) MEAN CORPUSCULAR VOLUME (BEAKER) 90.7 fL 79.0-92.2 (test code = 753) MEAN CORPUSCULAR HEMOGLOBIN 29.9 pg 25.7-32.2 (BEAKER) (test code = 751) MEAN CORPUSCULAR HEMOGLOBIN CONC 33.0 GM/DL 32.3-36.5 (BEAKER) (test code = 752) RED CELL DISTRIBUTION WIDTH 14.9 % 11.6-14.4 H (BEAKER) (test code = 412) PLATELET COUNT (BEAKER) (test 175 K/CU MM 150-450 code = 756) MEAN PLATELET VOLUME (BEAKER) 11.9 fL 9.4-12.4 (test code = 754) NUCLEATED RED BLOOD CELLS 1 /100 WBC 0-0 H (BEAKER) (test code = 413) BLOOD GAS, [id number] 03:31:00 Test Item Value Reference Range Interpretation Comments PH ARTERIAL (BEAKER) (test code = 7.42 7.35-7.45 383) PCO2 ARTERIAL (BEAKER) (test code 41 mmHg 35-45 = 384) PO2 ARTERIAL (BEAKER) (test code = 105 mmHg 80-90 H 385) O2 SATURATION ARTERIAL (BEAKER) 97.5 % 96.0-97.0 H (test code = 386) HCO3 ARTERIAL (BEAKER) (test code 25 mmol/L 21-29 = 388) BASE EXCESS ARTERIAL (BEAKER) 1.2 mmol/L -2.0-3.0 (test code = 387) PATIENT TEMPERATURE (BEAKER) (test 38.5 C code = 1818) FIO2 (BEAKER) (test code = 1819) 80.0 % POCT-GLUCOSE [id number] 00:08:00 Test Item Value Reference Range Interpretation Comments POC-GLUCOSE METER 120 mg/dL 70-110 H : TESTED A T [facility] 6720 (BEAKER) (test code = [facility], 1538) 11593: Electric Meter Repairer/Techni norah ID = [id number] for Lang Gonzalez Prepare [id number] 23:54:00 Test Item Value Reference Range Interpretation Comments Unit ABO (test code = 2397603) B Pos UNIT NUMBER (test code = [id number] 934-0) Status (test code = 8844244) TX_TIMEINCHART Blood Bank Product (test code PLATELETS = 2263) PRODUCT CODE (test code = F7522I97 933-2) [facility] Hospital[facility]OD [facility], [id number] 18:15:00 Test Item Value Reference Range Interpretation Comments PH ARTERIAL (BEAKER) (test code = 7.41 7.35-7.45 383) PCO2 ARTERIAL (BEAKER) (test code 40 mmHg 35-45 = 384) PO2 ARTERIAL (BEAKER) (test code 110 mmHg 80-90 H = 385) O2 SATURATION ARTERIAL (BEAKER) 97.8 % 96.0-97.0 H (test code = 386) HCO3 ARTERIAL (BEAKER) (test code 24 mmol/L 21-29 = 388) BASE EXCESS ARTERIAL (BEAKER) -0.2 mmol/L -2.0-3.0 (test code = 387) PATIENT TEMPERATURE (BEAKER) 38.3 C (test code = 1818) FIO2 (BEAKER) (test code = 1819) 30.0 % POCT-GLUCOSE [id number] 18:10:00 Test Item Value Reference Range Interpretation Comments POC-GLUCOSE METER 117 mg/dL 70-110 H : TESTED A T [facility] 6720 (BEAKER) (test code = [facility] [place], 1538) [address]: Electric Meter Repairer/Techni norah ID = [id number] for BARRENTINE, DOROTHY PHEN BASIC METABOLIC [id number] 13:02:00 Test Item Value Reference Range Interpretation Comments SODIUM (BEAKER) 139 meq/L 136-145 (test code = 381) POTASSIUM (BEAKER) 4.1 meq/L 3.5-5.1 (test code = 379) CHLORIDE (BEAKER) 107 meq/L 98-107 (test code = 382) CO2 (BEAKER) (test 24 meq/L 22-29 code = 355) BLOOD UREA NITROGEN 19 mg/dL 7-21 (BEAKER) (test code = 354) CREATININE (BEAKER) 1.18 mg/dL 0.57-1.25 (test code = 358) GLUCOSE RANDOM 111 mg/dL 70-105 H (BEAKER) (test code = 652) CALCIUM (BEAKER) 7.8 mg/dL 8.4-10.2 L (test code = 697) EGFR (BEAKER) (test 63 mL/min/1.73 ESTIMA ROSA ISELA GFR IS code = 1092) sq m NOT ACCURATE CREATININE CLEARANCE IN PREDICTING GLOMERULAR FILTRATION RATE . ESTIMATED GFR I S NOT APPLICABLE FOR DIALYSIS PATIEN TS. Electric Meter Repairer ID - JAEL [id number] 13:01:00 Test Item Value Reference Range Interpretation Comments MAGNESIUM (BEAKER) (test code = 2.2 mg/dL 1.6-2.6 627) Electric Meter Repairer ID - JAEL CBLOOD GAS, [id number] 12:41:00 Test Item Value Reference Range Interpretation Comments PH ARTERIAL (BEAKER) (test code = 7.42 7.35-7.45 383) PCO2 ARTERIAL (BEAKER) (test code 38 mmHg 35-45 = 384) PO2 ARTERIAL (BEAKER) (test code = 158 mmHg 80-90 H 385) O2 SATURATION ARTERIAL (BEAKER) 99.0 % 96.0-97.0 H (test code = 386) HCO3 ARTERIAL (BEAKER) (test code 24 mmol/L 21-29 = 388) BASE EXCESS ARTERIAL (BEAKER) 0.0 mmol/L -2.0-3.0 (test code = 387) PATIENT TEMPERATURE (BEAKER) (test 38.3 C code = 1818) FIO2 (BEAKER) (test code = 1819) 30.0 % OXYGEN SATURATION, [id number] 12:38:00 Test Item Value Reference Range Interpretation Comments O2 SATURATION (MEASURED) (BEAKER) 53.6 % (test code = 1455) BLOOD GAS, [id number] 10:04:00 Test Item Value Reference Range Interpretation Comments PH ARTERIAL (BEAKER) (test code = 7.43 7.35-7.45 383) PCO2 ARTERIAL (BEAKER) (test code 38 mmHg 35-45 = 384) PO2 ARTERIAL (BEAKER) (test code = 186 mmHg 80-90 H 385) O2 SATURATION ARTERIAL (BEAKER) 99.3 % 96.0-97.0 H (test code = 386) HCO3 ARTERIAL (BEAKER) (test code 24 mmol/L 21-29 = 388) BASE EXCESS ARTERIAL (BEAKER) 0.3 mmol/L -2.0-3.0 (test code = 387) PATIENT TEMPERATURE (BEAKER) (test 38.8 C code = 1818) FIO2 (BEAKER) (test code = 1819) 40.0 % BLOOD GAS, [id number] 07:40:00 Test Item Value Reference Range Interpretation Comments PH ARTERIAL (BEAKER) (test code = 7.44 7.35-7.45 383) PCO2 ARTERIAL (BEAKER) (test code 36 mmHg 35-45 = 384) PO2 ARTERIAL (BEAKER) (test code = 84 mmHg 80-90 385) O2 SATURATION ARTERIAL (BEAKER) 95.9 % 96.0-97.0 L (test code = 386) HCO3 ARTERIAL (BEAKER) (test code 24 mmol/L 21-29 = 388) BASE EXCESS ARTERIAL (BEAKER) 0.4 mmol/L -2.0-3.0 (test code = 387) PATIENT TEMPERATURE (BEAKER) (test 38.8 C code = 1818) FIO2 (BEAKER) (test code = 1819) 40.0 % Temp:: 101.9Lactic Acid, [id number] 06:18:00 Test Item Value Reference Range Interpretation Comments Lactate, Art (test code = 1.0 mmol/L 0.5-2.2 2874) SHERON (test code = SHERON) Electric Meter Repairer ID - EDASI Lab Interpretation (test Normal code = 84713-8) [facility] HospitalLACTIC ACID, [id number] 06:18:00 Test Item Value Reference Range Interpretation Comments LACTATE BLOOD ARTERIAL (2) 1.0 mmol/L 0.5-2.2 (BEAKER) (test code = 2874) Electric Meter Repairer ID - EDASIBLOOD GAS, [id number] 06:03:00 Test Item Value Reference Range Interpretation Comments PH ARTERIAL (BEAKER) (test code = 7.45 7.35-7.45 383) PCO2 ARTERIAL (BEAKER) (test code 36 mmHg 35-45 = 384) PO2 ARTERIAL (BEAKER) (test code = 118 mmHg 80-90 H 385) O2 SATURATION ARTERIAL (BEAKER) 98.3 % 96.0-97.0 H (test code = 386) HCO3 ARTERIAL (BEAKER) (test code 24 mmol/L 21-29 = 388) BASE EXCESS ARTERIAL (BEAKER) 0.4 mmol/L -2.0-3.0 (test code = 387) PATIENT TEMPERATURE (BEAKER) (test 38.5 C code = 1818) FIO2 (BEAKER) (test code = 1819) 60.0 % POCT-GLUCOSE [id number] 06:00:00 Test Item Value Reference Range Interpretation Comments POC-GLUCOSE METER 103 mg/dL 70-110 : TESTED A T [facility] 6720 (BEAKER) (test code = [facility], 1538) 412[address]: Electric Meter Repairer/Techni norah ID = [id number] for Lang oGnzalez RAD, CHEST, 1 VIEW, NON [id number] 04:47:00while patient is intubated or has chest tubes.Reason for exam:->Status post CV SurgeryShould thisbe performed at the bedside?->YesFINAL REPORT RAD, CHEST, 1 VIEW, NON DEPT INDICATION: Status post CV Surgery COMPARISON: Prior day's exam FINDINGS: Portable frontal view of the chest. IMPRESSION: Support Lines: Interval repositioning of the right IJ Livingston-Jesus Alberto catheter tip overlying the interlobar pulmonary artery. Otherwise unchanged support apparatus. Lungs and pleura: Unchanged airspace and pleural opacities when allowing for decreased lung volumes.. No pneumothorax.Heart and mediastinum: Stable contours. Stable surgical changes.Additional findings: None. Signed: Maddie Ibrahim Verified Date/Time: 07/10/2020 04:47:40 BASIC METABOLIC [id number] 04:36:00 Test Item Value Reference Range Interpretation Comments SODIUM (BEAKER) 138 meq/L 136-145 (test code = 381) POTASSIUM (BEAKER) 4.4 meq/L 3.5-5.1 (test code = 379) CHLORIDE (BEAKER) 108 meq/L 98-107 H (test code = 382) CO2 (BEAKER) (test 22 meq/L 22-29 code = 355) BLOOD UREA NITROGEN 16 mg/dL 7-21 (BEAKER) (test code = 354) CREATININE (BEAKER) 0.98 mg/dL 0.57-1.25 (test code = 358) GLUCOSE RANDOM 108 mg/dL 70-105 H (BEAKER) (test code = 652) CALCIUM (BEAKER) 7.6 mg/dL 8.4-10.2 L (test code = 697) EGFR (BEAKER) (test 78 mL/min/1.73 ESTIMA ROSA ISELA GFR IS code = 1092) sq m NOT ACCURATE CREATININE CLEARANCE IN PREDICTING GLOMERULAR FILTRATION RATE . ESTIMATED GFR I S NOT APPLICABLE FOR DIALYSIS PATIEN TS. Electric Meter Repairer ID - [id number] 04:09:00 Test Item Value Reference Range Interpretation Comments PHOSPHORUS (BEAKER) (test code = 4.5 mg/dL 2.3-4.7 604) Electric Meter Repairer ID - [id number] 04:09:00 Test Item Value Reference Range Interpretation Comments MAGNESIUM (BEAKER) (test code = 2.1 mg/dL 1.6-2.6 627) Electric Meter Repairer ID - EDASILACTIC ACID, [id number] 04:02:00 Test Item Value Reference Range Interpretation Comments LACTATE BLOOD ARTERIAL (2) 1.0 mmol/L 0.5-2.2 (BEAKER) (test code = 2874) Electric Meter Repairer ID - [id number] (HEMOGRAM ONLY)2020-07-10 03:51:00 Test Item Value Reference Range Interpretation Comments WHITE BLOOD CELL COUNT (BEAKER) 6.1 K/ L 3.5-10.5 (test code = 775) RED BLOOD CELL COUNT (BEAKER) 2.91 M/ L 4.63-6.08 L (test code = 761) HEMOGLOBIN (BEAKER) (test code = 8.8 GM/DL 13.7-17.5 L 410) HEMATOCRIT (BEAKER) (test code = 26.2 % 40.1-51.0 L 411) MEAN CORPUSCULAR VOLUME (BEAKER) 90.0 fL 79.0-92.2 (test code = 753) MEAN CORPUSCULAR HEMOGLOBIN 30.2 pg 25.7-32.2 (BEAKER) (test code = 751) MEAN CORPUSCULAR HEMOGLOBIN CONC 33.6 GM/DL 32.3-36.5 (BEAKER) (test code = 752) RED CELL DISTRIBUTION WIDTH 14.4 % 11.6-14.4 (BEAKER) (test code = 412) PLATELET COUNT (BEAKER) (test 141 K/CU MM 150-450 L code = 756) MEAN PLATELET VOLUME (BEAKER) 11.4 fL 9.4-12.4 (test code = 754) NUCLEATED RED BLOOD CELLS 1 /100 WBC 0-0 H (BEAKER) (test code = 413) OXYGEN SATURATION, [id number] 03:46:00 Test Item Value Reference Range Interpretation Comments O2 SATURATION (MEASURED) (BEAKER) 61.3 % (test code = 1455) BLOOD GAS, [id number] 03:45:00 Test Item Value Reference Range Interpretation Comments PH ARTERIAL (BEAKER) (test code = 7.43 7.35-7.45 383) PCO2 ARTERIAL (BEAKER) (test code 37 mmHg 35-45 = 384) PO2 ARTERIAL (BEAKER) (test code 116 mmHg 80-90 H = 385) O2 SATURATION ARTERIAL (BEAKER) 98.2 % 96.0-97.0 H (test code = 386) HCO3 ARTERIAL (BEAKER) (test code 24 mmol/L 21-29 = 388) BASE EXCESS ARTERIAL (BEAKER) -0.2 mmol/L -2.0-3.0 (test code = 387) PATIENT TEMPERATURE (BEAKER) 38.0 C (test code = 1818) FIO2 (BEAKER) (test code = 1819) 60.0 % LACTIC ACID, [id number] 01:27:00 Test Item Value Reference Range Interpretation Comments LACTATE BLOOD ARTERIAL (2) 1.5 mmol/L 0.5-2.2 (BEAKER) (test code = 2874) Electric Meter Repairer REESE - KELECHI Jhaveri ID - EDASIBLOOD GAS, [id number] 00:43:00 Test Item Value Reference Range Interpretation Comments PH ARTERIAL (BEAKER) (test code = 7.38 7.35-7.45 383) PCO2 ARTERIAL (BEAKER) (test code 43 mmHg 35-45 = 384) PO2 ARTERIAL (BEAKER) (test code 72 mmHg 80-90 L = 385) O2 SATURATION ARTERIAL (BEAKER) 94.6 % 96.0-97.0 L (test code = 386) HCO3 ARTERIAL (BEAKER) (test code 25 mmol/L 21-29 = 388) BASE EXCESS ARTERIAL (BEAKER) -0.1 mmol/L -2.0-3.0 (test code = 387) PATIENT TEMPERATURE (BEAKER) 36.5 C (test code = 1818) FIO2 (BEAKER) (test code = 1819) 60.0 % POCT-GLUCOSE [id number] 00:20:00 Test Item Value Reference Range Interpretation Comments POC-GLUCOSE METER 99 mg/dL 70-110 : TESTED A T [facility] 6720 (BEAKER) (test code = [place], 1538) [address]: Electric Meter Repairer/Techni norah ID = [id number] for Lang Leal BASIC METABOLIC [id number] 23:16:00 Test Item Value Reference Range Interpretation Comments SODIUM (BEAKER) 138 meq/L 136-145 (test code = 381) POTASSIUM (BEAKER) 4.2 meq/L 3.5-5.1 (test code = 379) CHLORIDE (BEAKER) 109 meq/L 98-107 H (test code = 382) CO2 (BEAKER) (test 21 meq/L 22-29 L code = 355) BLOOD UREA NITROGEN 13 mg/dL 7-21 (BEAKER) (test code = 354) CREATININE (BEAKER) 0.84 mg/dL 0.57-1.25 (test code = 358) GLUCOSE RANDOM 108 mg/dL 70-105 H (BEAKER) (test code = 652) CALCIUM (BEAKER) 7.2 mg/dL 8.4-10.2 L (test code = 697) EGFR (BEAKER) (test 93 mL/min/1.73 ESTIMA ROSA ISELA GFR IS code = 1092) sq m NOT ACCURATE CREATININE CLEARANCE IN PREDICTING GLOMERULAR FILTRATION RATE . ESTIMATED GFR I S NOT APPLICABLE FOR DIALYSIS PATIEN TS. Electric Meter Repairer ID - KELECHI [id number] 23:15:00 Test Item Value Reference Range Interpretation Comments PHOSPHORUS (BEAKER) (test code = 4.6 mg/dL 2.3-4.7 604) Electric Meter Repairer ID - KELECHI [id number] 23:15:00 Test Item Value Reference Range Interpretation Comments MAGNESIUM (BEAKER) (test code = 1.7 mg/dL 1.6-2.6 627) Electric Meter Repairer ID - KELECHI LLACTIC ACID, [id number] 23:11:00 Test Item Value Reference Range Interpretation Comments LACTATE BLOOD ARTERIAL (2) 2.6 mmol/L 0.5-2.2 H (BEAKER) (test code = 2874) Electric Meter Repairer ID - KELECHI LCalcium, [id number] 23:08:00 Test Item Value Reference Range Interpretation Comments Calcium, Ion (test code = 1994-3) 1.05 mmol/L 1.12-1.27 L pH, Blood (test code = 76764-3) 7.41 Lab Interpretation (test code = Abnormal 51958-8) [facility] [id number] 23:08:00 Test Item Value Reference Range Interpretation Comments CALCIUM IONIZED (BEAKER) (test 1.05 mmol/L 1.12-1.27 L code = 698) PH, BLOOD (BEAKER) (test code = 7.41 1810) HGB/HCT (H&H)-Stat [id number] 23:07:00 Test Item Value Reference Range Interpretation Comments Hemoglobin (test code = 786-4) 7.3 g/dL 13-16.8 L Hematocrit (test code = 4544-3) 21.0 % 40-50 L Lab Interpretation (test code = Abnormal 37132-7) [facility], [id number] 23:07:00 Test Item Value Reference Range Interpretation Comments PH ARTERIAL (BEAKER) (test code = 7.42 7.35-7.45 383) PCO2 ARTERIAL (BEAKER) (test code 37 mmHg 35-45 = 384) PO2 ARTERIAL (BEAKER) (test code 129 mmHg 80-90 H = 385) O2 SATURATION ARTERIAL (BEAKER) 98.7 % 96.0-97.0 H (test code = 386) HCO3 ARTERIAL (BEAKER) (test code 24 mmol/L 21-29 = 388) BASE EXCESS ARTERIAL (BEAKER) -0.8 mmol/L -2.0-3.0 (test code = 387) PATIENT TEMPERATURE (BEAKER) 36.5 C (test code = 1818) FIO2 (BEAKER) (test code = 1819) 60.0 % HGB/HCT (H&H) - STAT [id number] 23:07:00 Test Item Value Reference Range Interpretation Comments HEMOGLOBIN (BEAKER) (test code = 7.3 g/dL 13.0-16.8 L 410) HEMATOCRIT (BEAKER) (test code = 21.0 % 40.0-50.0 L 411) OXYGEN SATURATION, [id number] 23:05:00 Test Item Value Reference Range Interpretation Comments O2 SATURATION (MEASURED) (BEAKER) 66.9 % (test code = 1455) Glucose-Stat [id number] 23:03:00 Test Item Value Reference Range Interpretation Comments Glucose (test code = 2345-7) 109 mg/dL 70-110 Lab Interpretation (test code = Normal 99083-9) [facility] [id number] 23:03:00 Test Item Value Reference Range Interpretation Comments Sodium (test code = 2951-2) 135 meq/L 136-145 L Lab Interpretation (test code = Abnormal 18054-9) [facility]Potassium-Stat [id number] 23:03:00 Test Item Value Reference Range Interpretation Comments Potassium (test code = 2823-3) 4.0 meq/L 3.6-5.5 Lab Interpretation (test code = Normal 43409-9) [facility]GLU[facility]SE-STAT [id number] 23:03:00 Test Item Value Reference Range Interpretation Comments GLUCOSE RANDOM (BEAKER) (test code 109 mg/dL 70-110 = 652) SODIUM NA-STAT [id number] 23:03:00 Test Item Value Reference Range Interpretation Comments SODIUM (BEAKER) (test code = 381) 135 meq/L 136-145 L POTASSIUM-STAT [id number] 23:03:00 Test Item Value Reference Range Interpretation Comments POTASSIUM (BEAKER) (test code = 4.0 meq/L 3.6-5.5 379) BLOOD GAS, [id number] 21:47:00 Test Item Value Reference Range Interpretation Comments PH ARTERIAL (BEAKER) (test code = 7.37 7.35-7.45 383) PCO2 ARTERIAL (BEAKER) (test code 34 mmHg 35-45 L = 384) PO2 ARTERIAL (BEAKER) (test code 84 mmHg 80-90 = 385) O2 SATURATION ARTERIAL (BEAKER) 96.4 % 96.0-97.0 (test code = 386) HCO3 ARTERIAL (BEAKER) (test code 19 mmol/L 21-29 L = 388) BASE EXCESS ARTERIAL (BEAKER) -5.4 mmol/L -2.0-3.0 L (test code = 387) PATIENT TEMPERATURE (BEAKER) 36.5 C (test code = 1818) FIO2 (BEAKER) (test code = 1819) 60.0 % [id number] 21:13:00 Test Item Value Reference Range Interpretation Comments Potassium (test code = 4.8 meq/L 3.5-5.1 2823-3) SHERON (test code = SHERON) Electric Meter Repairer ID - BS Lab Interpretation (test Normal code = 04845-2) [facility]POTASSIUM2020-10-05 21:13:00 Test Item Value Reference Range Interpretation Comments POTASSIUM (BEAKER) (test code = 4.8 meq/L 3.5-5.1 379) Electric Meter Repairer ID - BSLACTIC ACID, [id number] 19:59:00 Test Item Value Reference Range Interpretation Comments LACTATE BLOOD ARTERIAL (2) 4.8 mmol/L 0.5-2.2 HH (BEAKER) (test code = 2874) Electric Meter Repairer ID - BSHemoglobin and [id number] 19:44:00 Test Item Value Reference Range Interpretation Comments Hemoglobin (test code = 8.4 13.7- 17.5 GM/DL L 786-4) Hematocrit (test code = 25.2 % 40.1-51 L 4544-3) SHERON (test code = SHERON) Electric Meter Repairer ID - [id number] Lab Interpretation (test Abnormal code = 41993-2) [facility] HospitalHEMOGLOBIN AND [id number] 19:44:00 Test Item Value Reference Range Interpretation Comments HEMOGLOBIN (BEAKER) (test code = 8.4 GM/DL 13.7-17.5 L 410) HEMATOCRIT (BEAKER) (test code = 25.2 % 40.1-51.0 L 411) Electric Meter Repairer ID - [id number]-GLUCOSE [id number] 19:38:00 Test Item Value Reference Range Interpretation Comments POC-GLUCOSE METER 147 mg/dL 70-110 H : TESTED A T [facility] 6720 (BEAKER) (test code = CHRISTINA [place], 1538) [address]: Electric Meter Repairer/Techni norah ID = [id number] for Lang Gonzalez [id number] 19:12:00 Test Item Value Reference Range Interpretation Comments CROSSMATCH (test code = COMPATIBLE 2264) Unit ABO (test code = O Pos 2494248) UNIT NUMBER (test code = [id number] 934-0) Status (test code = RETURNED FROM ISSUE 1979911) Blood Bank Product (test RED BLOOD CELLS code = 2263) PRODUCT CODE (test code = G5984J52 933-2) [facility] HospitalPrepare [id number] 19:12:00 Test Item Value Reference Range Interpretation Comments Unit ABO (test code = O Pos 1963998) UNIT NUMBER (test code = [id number] 934-0) Status (test code = RETURNED FROM ISSUE 8211182) Blood Bank Product (test FFP code = 2263) PRODUCT CODE (test code = V4437A35 933-2) [facility] HospitalTroponin [id number] 18:50:00 Test Item Value Reference Range Interpretation Comments Troponin I (test code = 0.85 ng/mL 0-0.03 61066-8) SHERON (test code = SHERON) Troponin I (TnI) levels must be interpreted in the context of the presenting symptoms and the clinical findings. Elevated TnI levels indicate myocardial damage, but are not specific for ischemic heart disease. Elevated TnI levels are seen in patients with other cardiac conditions (including myocarditis and congestive heart failure), and slight TnI elevations occur in patients with other conditions, including sepsis, renal failure, acidosis, acute neurological disease, and persistent tachyarrhythmia.Opera tor ID - BS Lab Interpretation (test Abnormal code = 41820-9) [facility] HospitalMALIK [id number] 18:50:00 Test Item Value Reference Range Interpretation Comments TROPONIN I (BEAKER) (test code = 0.85 ng/mL 0.00-0.03 HH 397) Troponin I (TnI) levels must be interpreted in the context of the presenting symptoms and the clinical findings. Elevated TnI levels indicate myocardial damage, but are not specific for ischemic heart disease. Elevated TnI levels are seen in patients with other cardiac conditions (including myocarditis and congestive heart failure), and slight TnI elevations occur in patients with other conditions, including sepsis, renal failure, acidosis, acute neurological disease, and persistent tachyarrhythmia.Electric Meter Repairer ID - [id number] 18:40:00 Test Item Value Reference Range Interpretation Comments PHOSPHORUS (BEAKER) (test code = 5.1 mg/dL 2.3-4.7 H 604) Electric Meter Repairer ID - [id number] 18:40:00 Test Item Value Reference Range Interpretation Comments MAGNESIUM (BEAKER) (test code = 1.8 mg/dL 1.6-2.6 627) Electric Meter Repairer ID - BSBASIC METABOLIC [id number] 18:40:00 Test Item Value Reference Range Interpretation Comments SODIUM (BEAKER) 136 meq/L 136-145 (test code = 381) POTASSIUM (BEAKER) 5.6 meq/L 3.5-5.1 H (test code = 379) CHLORIDE (BEAKER) 107 meq/L 98-107 (test code = 382) CO2 (BEAKER) (test 20 meq/L 22-29 L code = 355) BLOOD UREA NITROGEN 13 mg/dL 7-21 (BEAKER) (test code = 354) CREATININE (BEAKER) 0.89 mg/dL 0.57-1.25 (test code = 358) GLUCOSE RANDOM 150 mg/dL 70-105 H (BEAKER) (test code = 652) CALCIUM (BEAKER) 7.7 mg/dL 8.4-10.2 L (test code = 697) EGFR (BEAKER) (test 87 mL/min/1.73 ESTIMA ROSA ISELA GFR IS code = 1092) sq m NOT ACCURATE CREATININE CLEARANCE IN PREDICTING GLOMERULAR FILTRATION RATE . ESTIMATED GFR I S NOT APPLICABLE FOR DIALYSIS PATIEN TS. Electric Meter Repairer ID - BSLACTIC ACID, [id number] 18:36:00 Test Item Value Reference Range Interpretation Comments LACTATE BLOOD ARTERIAL (2) 3.7 mmol/L 0.5-2.2 H (BEAKER) (test code = 2874) Electric Meter Repairer ID - BSBLOOD GAS, [id number] 18:15:00 Test Item Value Reference Range Interpretation Comments PH ARTERIAL (BEAKER) (test code = 7.40 7.35-7.45 383) PCO2 ARTERIAL (BEAKER) (test code 35 mmHg 35-45 = 384) PO2 ARTERIAL (BEAKER) (test code 91 mmHg 80-90 H = 385) O2 SATURATION ARTERIAL (BEAKER) 97.3 % 96.0-97.0 H (test code = 386) HCO3 ARTERIAL (BEAKER) (test code 22 mmol/L 21-29 = 388) BASE EXCESS ARTERIAL (BEAKER) -3.1 mmol/L -2.0-3.0 L (test code = 387) PATIENT TEMPERATURE (BEAKER) 36.1 C (test code = 1818) FIO2 (BEAKER) (test code = 1819) 50.0 % POCT-GLUCOSE [id number] 18:15:00 Test Item Value Reference Range Interpretation Comments POC-GLUCOSE METER 146 mg/dL 70-110 H : TESTED A T [facility] 6720 (BEAKER) (test code = CHRIST[place], 1538) [address]: Electric Meter Repairer/Techni norah ID = [id number] for JASON LIND CBC W/PLT COUNT & AUTO [id number] 17:39:00 Test Item Value Reference Range Interpretation Comments WHITE BLOOD CELL COUNT (BEAKER) 10.6 K/ L 3.5-10.5 H (test code = 775) RED BLOOD CELL COUNT (BEAKER) 2.69 M/ L 4.63-6.08 L (test code = 761) HEMOGLOBIN (BEAKER) (test code = 8.2 GM/DL 13.7-17.5 L 410) HEMATOCRIT (BEAKER) (test code = 24.5 % 40.1-51.0 L 411) MEAN CORPUSCULAR VOLUME (BEAKER) 91.1 fL 79.0-92.2 (test code = 753) MEAN CORPUSCULAR HEMOGLOBIN 30.5 pg 25.7-32.2 (BEAKER) (test code = 751) MEAN CORPUSCULAR HEMOGLOBIN CONC 33.5 GM/DL 32.3-36.5 (BEAKER) (test code = 752) RED CELL DISTRIBUTION WIDTH 14.5 % 11.6-14.4 H (BEAKER) (test code = 412) PLATELET COUNT (BEAKER) (test 171 K/CU MM 150-450 code = 756) MEAN PLATELET VOLUME (BEAKER) 11.8 fL 9.4-12.4 (test code = 754) NUCLEATED RED BLOOD CELLS 0 /100 WBC 0-0 (BEAKER) (test code = 413) NEUTROPHILS RELATIVE PERCENT 77 % (BEAKER) (test code = 429) LYMPHOCYTES RELATIVE PERCENT 14 % (BEAKER) (test code = 430) MONOCYTES RELATIVE PERCENT 6 % (BEAKER) (test code = 431) EOSINOPHILS RELATIVE PERCENT 1 % (BEAKER) (test code = 432) BASOPHILS RELATIVE PERCENT 1 % (BEAKER) (test code = 437) NEUTROPHILS ABSOLUTE COUNT 8.15 K/ L 1.78-5.38 H (BEAKER) (test code = 670) LYMPHOCYTES ABSOLUTE COUNT 1.47 K/ L 1.32-3.57 (BEAKER) (test code = 414) MONOCYTES ABSOLUTE COUNT (BEAKER) 0.59 K/ L 0.30-0.82 (test code = 415) EOSINOPHILS ABSOLUTE COUNT 0.11 K/ L 0.04-0.54 (BEAKER) (test code = 416) BASOPHILS ABSOLUTE COUNT (BEAKER) 0.06 K/ L 0.01-0.08 (test code = 417) IMMATURE GRANULOCYTES-RELATIVE 2 % 0-1 H PERCENT (BEAKER) (test code = 2801) Manual [id number] 16:42:00 Test Item Value Reference Range Interpretation Comments % Neutros (test code = 82 % 2815) % Lymphs (test code = 7 % 7) % Monos (test code = 2 % 2818) % Bands (test code = 9 % 0-10 5346) # Neutros (test code = 6.89 K/ul 1.78-5.38 H 2830) # Lymphs (test code = 0.59 K/ul 1.32-3.57 L 2831) # Monos (test code = 0.17 K/uL 0.3-0.82 L 2832) # Bands (test code = 0.76 K/uL 0-0.8 2840) Total Counted (test 100 code = 1351) nRBC (manual) (test 1 0- 0 /100 WBC H code = 1353) WBC Morphology (test Normal code = 487) Platelet Morphology Normal (test code = 486) Anisocytosis (test code 1+ few = 961) Microcytes (test code = 1+ few 965) Artifact (test code = Present 3432) Platelet Conc (test Decreased code = 3438) SHERON (test code = SHERON) Electric Meter Repairer ID - [id number] ID - Flakitodarrell comments: Slide comments: Lab Interpretation Abnormal (test code = 13928-3) [facility](CELLAVISION MANUAL DIFF)2020-07-09 16:42:00 Test Item Value Reference Range Interpretation Comments NEUTROPHILS - REL 82 % (CELLAVISION)(BEAKER) (test code = 2816) LYMPHOCYTES - REL 7 % (CELLAVISION)(BEAKER) (test code = 2817) MONOCYTES - REL 2 % (CELLAVISION)(BEAKER) (test code = 2818) BANDS - REL (CELLAVISION)(BEAKER) 9 % 0-10 (test code = 2826) NEUTROPHILS - ABS 6.89 K/ul 1.78-5.38 H (CELLAVISION)(BEAKER) (test code = 2830) LYMPHOCYTES - ABS 0.59 K/ul 1.32-3.57 L (CELLAVISION)(BEAKER) (test code = 2831) MONOCYTES - ABS 0.17 K/uL 0.30-0.82 L (CELLAVISION)(BEAKER) (test code = 2832) BANDS - ABS (CELLAVISION)(BEAKER) 0.76 K/uL 0.00-0.80 (test code = 2840) TOTAL COUNTED (BEAKER) (test code 100 = 1351) MANUAL NRBC PER 100 CELLS (BEAKER) 1 /100 WBC 0-0 H (test code = 1353) WBC MORPHOLOGY (BEAKER) (test code Normal = 487) PLT MORPHOLOGY (BEAKER) (test code Normal = 486) ANISOCYTOSIS (BEAKER) (test code = 1+ few 961) MICROCYTES (BEAKER) (test code = 1+ few 965) ARTIFACT (CELLAVISION)(BEAKER) Present (test code = 3432) PLATELET CONCENTRATION Decreased (CELLAVISION)(BEAKER) (test code = 3438) Electric Meter Repairer ID - [id number] ID - Dean comments: Slide comments:RAD, CHEST, 1 VIEW, NON [id number] 16:41:00Reason for exam:->post cardiothoracic surgery/ettShould this be performed at the bedside?->YesFINAL REPORT Chest, 1 view. History: Postop. Comparison: 07/02/2020. IMPRESSION: There are postsurgical changes from interval median sternotomy. Endotracheal tube terminates approximately 4.7 cm above the taylor. Right IJ coursing pulmonary arterial catheter tip terminates over the proximal right pulmonary artery. Bilateral chest tubes and suspected mediastinal drain identifiedin place. Enteric tube noted coursing below the diaphragm. There are mildly increased bibasilar and perihilar opacities which may reflect atelectasis. There is no evidence for large focal consolidation, pneumothorax, or significant volume pleural effusion. The cardiomediastinal silhouette is stable inappearance. No acute osseous abnormality is identified. Signed: Sundar Berman Verified Date/Time: 07/09/2020 16:41:23 Reading Location: [address] Consult Reading Room LACTIC ACID, [id number] 16:20:00 Test Item Value Reference Range Interpretation Comments LACTATE BLOOD 4.1 mmol/L 0.5-2.2 HH Specimen sligh tly ARTERIAL (2) (BEAKER) hemoly zed (test code = 2874) Electric Meter Repairer ID - MAIDA [id number] 16:19:00 Test Item Value Reference Range Interpretation Comments MAGNESIUM (BEAKER) 1.8 mg/dL 1.6-2.6 Specimen slightly (test code = 627) hemolyzed Electric Meter Repairer ID - MAIDA [id number] 16:19:00 Test Item Value Reference Range Interpretation Comments PHOSPHORUS (BEAKER) 5.0 mg/dL 2.3-4.7 H Specimen slightly (test code = 604) hemolyzed Electric Meter Repairer ID Adam BEY FBASIC METABOLIC [id number] 16:19:00 Test Item Value Reference Range Interpretation Comments SODIUM (BEAKER) 138 meq/L 136-145 (test code = 381) POTASSIUM (BEAKER) 5.2 meq/L 3.5-5.1 H Specimen slightly (test code = 379) hemolyzed CHLORIDE (BEAKER) 108 meq/L 98-107 H (test code = 382) CO2 (BEAKER) (test 21 meq/L 22-29 L code = 355) BLOOD UREA NITROGEN 13 mg/dL 7-21 (BEAKER) (test code = 354) CREATININE (BEAKER) 0.91 mg/dL 0.57-1.25 Specimen slightly (test code = 358) hemolyzed GLUCOSE RANDOM 152 mg/dL 70-105 H (BEAKER) (test code = 652) CALCIUM (BEAKER) 8.1 mg/dL 8.4-10.2 L (test code = 697) EGFR (BEAKER) (test 84 mL/min/1.73 ESTIMA ROSA ISELA GFR IS code = 1092) sq m NOT ACCURATE CREATININE CLEARANCE IN PREDICTING GLOMERULAR FILTRATION RATE . ESTIMATED GFR I S NOT APPLICABLE FOR DIALYSIS PATIEN TS. Electric Meter Repairer REESE BEY FCBC W/PLT COUNT & AUTO [id number] 16:15:00 Test Item Value Reference Range Interpretation Comments WHITE BLOOD CELL COUNT (BEAKER) 8.4 K/ L 3.5-10.5 (test code = 775) RED BLOOD CELL COUNT (BEAKER) 2.85 M/ L 4.63-6.08 L (test code = 761) HEMOGLOBIN (BEAKER) (test code = 8.5 GM/DL 13.7-17.5 L 410) HEMATOCRIT (BEAKER) (test code = 25.8 % 40.1-51.0 L 411) MEAN CORPUSCULAR VOLUME (BEAKER) 90.5 fL 79.0-92.2 (test code = 753) MEAN CORPUSCULAR HEMOGLOBIN 29.8 pg 25.7-32.2 (BEAKER) (test code = 751) MEAN CORPUSCULAR HEMOGLOBIN CONC 32.9 GM/DL 32.3-36.5 (BEAKER) (test code = 752) RED CELL DISTRIBUTION WIDTH 14.3 % 11.6-14.4 (BEAKER) (test code = 412) PLATELET COUNT (BEAKER) (test 142 K/CU MM 150-450 L code = 756) MEAN PLATELET VOLUME (BEAKER) 10.8 fL 9.4-12.4 (test code = 754) NUCLEATED RED BLOOD CELLS 0 /100 WBC 0-0 (BEAKER) (test code = 413) [id number] 16:07:00 Test Item Value Reference Range Interpretation Comments Fibrinogen (test code = 3255-7) 330 mg/dl 225-434 Lab Interpretation (test code = Normal 13995-4) [facility] 16:07:00 Test Item Value Reference Range Interpretation Comments PTT (test code = 56600-0) 32.9 22.5- 36.0 seconds Lab Interpretation (test code = Normal 54889-4) [facility]IB[facility]EN2020-[facility]-05 16:07:00 Test Item Value Reference Range Interpretation Comments FIBRINOGEN LEVEL (BEAKER) (test 330 mg/dl 225-434 code = 658) [id number] 16:07:00 Test Item Value Reference Range Interpretation Comments PARTIAL THROMBOPLASTIN TIME 32.9 seconds 22.5-36.0 (BEAKER) (test code = 760) Prothromin time/[id number] 16:06:00 Test Item Value Reference Range Interpretation Comments Protime (test code = 17.7 11.9- 14.2 H 5902-2) seconds INR (test code = 1.50 <=5.90 6301-6) SHERON (test code = SHERON) Effective 03/02/2019: PT Reference Range ChangeNew: 11.9-14.2 Previous: 11.7-14.7 RECOMMENDED COUMADIN/WARFARIN INR THERAPY RANGESSTANDARD DOSE: 2.0-3.0 Includes: PROPHYLAXIS for venous thrombosis, systemic embolization; TREATMENT for venous thrombosis and/or pulmonary embolus.HIGH RISK: Target INR is 2.5-3.5 for patients wiht mechanical heart valves. Lab Interpretation Abnormal (test code = 91623-8) [facility] HospitalPROTHROMBIN TIME/[id number] 16:06:00 Test Item Value Reference Range Interpretation Comments PROTIME (BEAKER) (test code = 17.7 seconds 11.9-14.2 H 759) INR (BEAKER) (test code = 370) 1.50 <=5.90 Effective 03/02/2019: PT Reference Range ChangeNew: 11.9-14.2 Previous: 11.7- 14.7RECOMMENDED COUMADIN/WARFARIN INR THERAPY RANGESSTANDARD DOSE: 2.0-3.0 Includes: PROPHYLAXIS for venous thrombosis, systemic embolization; TREATMENT for venous thrombosis and/or pulmonary embolus.HIGH RISK: Target INR is2.5-3.5 for patients wiht mechanical heart valves.OXYGEN SATURATION, [id number] 15:52:00 Test Item Value Reference Range Interpretation Comments O2 SATURATION (MEASURED) (BEAKER) 78.3 % (test code = 1455) CALCIUM, [id number] 15:51:00 Test Item Value Reference Range Interpretation Comments CALCIUM IONIZED (BEAKER) (test 1.13 mmol/L 1.12-1.27 code = 698) PH, BLOOD (BEAKER) (test code = 7.31 1810) BLOOD GAS, [id number] 15:50:00 Test Item Value Reference Range Interpretation Comments PH ARTERIAL (BEAKER) (test code = 7.33 7.35-7.45 L 383) PCO2 ARTERIAL (BEAKER) (test code 41 mmHg 35-45 = 384) PO2 ARTERIAL (BEAKER) (test code 95 mmHg 80-90 H = 385) O2 SATURATION ARTERIAL (BEAKER) 97.2 % 96.0-97.0 H (test code = 386) HCO3 ARTERIAL (BEAKER) (test code 21 mmol/L 21-29 = 388) BASE EXCESS ARTERIAL (BEAKER) -4.6 mmol/L -2.0-3.0 L (test code = 387) PATIENT TEMPERATURE (BEAKER) 35.8 C (test code = 1818) FIO2 (BEAKER) (test code = 1819) 70.0 % GLUCOSE-STAT [id number] 15:50:00 Test Item Value Reference Range Interpretation Comments GLUCOSE RANDOM (BEAKER) (test code 151 mg/dL 70-110 H = 652) HGB/HCT (H&H) - STAT [id number] 15:50:00 Test Item Value Reference Range Interpretation Comments HEMOGLOBIN (BEAKER) (test code = 9.1 g/dL 13.0-16.8 L 410) HEMATOCRIT (BEAKER) (test code = 27.0 % 40.0-50.0 L 411) SODIUM NA-STAT [id number] 15:49:00 Test Item Value Reference Range Interpretation Comments SODIUM (BEAKER) (test code = 381) 135 meq/L 136-145 L POTASSIUM-STAT [id number] 15:49:00 Test Item Value Reference Range Interpretation Comments POTASSIUM (BEAKER) (test code = 4.9 meq/L 3.6-5.5 379) POC ACTIVATED CLOTTING [id number] 15:22:00 Test Item Value Reference Range Interpretation Comments Activated Clotting Time 120 sec : 74 -137 seconds, (test code = 441) Baseline: TESTED AT [address], [facility]: Electric Meter Repairer/Techni norah ID = [id number] for CAST RO, JORDYN [id number] 15:22:00 Test Item Value Reference Range Interpretation Comments ACTIVATED CLOTTING TIME 120 sec : 74 -137 seconds, (BEAKER) (test code = Baseli ne: TESTED AT 441) [address], [facility] 30: Electric Meter Repairer/Techni norah ID = [id number] for CA STRO, JORDYN [id number] 15:22:00 Test Item Value Reference Range Interpretation Comments ACTIVATED CLOTTING TIME 499 sec : 74 -137 seconds, (BEAKER) (test code = Baseli ne: TESTED AT 441) [address], [facility] 30: Electric Meter Repairer/Techni norah ID = [id number] for CA STRO, JORDYN [id number] 15:22:00 Test Item Value Reference Range Interpretation Comments ACTIVATED CLOTTING TIME 422 sec : 74 -137 seconds, (BEAKER) (test code = Baseli ne: TESTED AT 441) [address], [facility] 30: Electric Meter Repairer/Techni norah ID = [id number] for CA STRO, JORDYN [id number] 15:22:00 Test Item Value Reference Range Interpretation Comments ACTIVATED CLOTTING TIME 461 sec : 74 -137 seconds, (BEAKER) (test code = Baseli ne: TESTED AT 441) [place] [address] 30: Electric Meter Repairer/Techni norah ID = [id number] for CA STRO, JORDYN [id number] 15:22:00 Test Item Value Reference Range Interpretation Comments ACTIVATED CLOTTING TIME 813 sec : 74 -137 seconds, (BEAKER) (test code = Baseli ne: TESTED AT 441) [place] [address] 30: Electric Meter Repairer/Techni norah ID = [id number] for CA STRO, JORDYN [id number] 15:22:00 Test Item Value Reference Range Interpretation Comments ACTIVATED CLOTTING TIME 599 sec : 74 -137 seconds, (BEAKER) (test code = Baseli ne: TESTED AT 441) [place] [address] 30: Electric Meter Repairer/Techni norah ID = [id number] for CA STRO, JORDYN [id number] 15:21:00 Test Item Value Reference Range Interpretation Comments ACTIVATED CLOTTING TIME 599 sec : 74 -137 seconds, (BEAKER) (test code = Baseli ne: TESTED AT 441) [place] [address] 30: Electric Meter Repairer/Techni norah ID = [id number] for CA STRO, JORDYN [id number] 15:21:00 Test Item Value Reference Range Interpretation Comments ACTIVATED CLOTTING TIME 131 sec : 74 -137 seconds, (BEAKER) (test code = Baseli ne: TESTED AT 441) [place] [address] 30: Electric Meter Repairer/Techni norah ID = [id number] for CA STRO, JORDYN Platelet [id number] 14:30:00 Test Item Value Reference Range Interpretation Comments Platelets (test code = 165 150- 450 K/CU MM 777-3) SHERON (test code = SHERON) Electric Meter Repairer ID - [id number] Lab Interpretation (test Normal code = 08321-6) [id number] 14:30:00 Test Item Value Reference Range Interpretation Comments PLATELET COUNT (BEAKER) (test 165 K/CU MM 150-450 code = 756) Electric Meter Repairer ID - [id number] GAS, [id number] 14:24:00 Test Item Value Reference Range Interpretation Comments PH ARTERIAL (BEAKER) (test code = 7.33 7.35-7.45 L 383) PCO2 ARTERIAL (BEAKER) (test code 41 mmHg 35-45 = 384) PO2 ARTERIAL (BEAKER) (test code 124 mmHg 80-90 H = 385) O2 SATURATION ARTERIAL (BEAKER) 98.4 % 96.0-97.0 H (test code = 386) HCO3 ARTERIAL (BEAKER) (test code 22 mmol/L 21-29 = 388) BASE EXCESS ARTERIAL (BEAKER) -4.5 mmol/L -2.0-3.0 L (test code = 387) PATIENT TEMPERATURE (BEAKER) 35.4 C (test code = 1818) FIO2 (BEAKER) (test code = 1819) 95.0 % SODIUM NA-STAT [id number] 14:24:00 Test Item Value Reference Range Interpretation Comments SODIUM (BEAKER) (test code = 381) 133 meq/L 136-145 L GLUCOSE-STAT [id number] 14:24:00 Test Item Value Reference Range Interpretation Comments GLUCOSE RANDOM (BEAKER) (test code 182 mg/dL 70-110 H = 652) HGB/HCT (H&H) - STAT [id number] 14:24:00 Test Item Value Reference Range Interpretation Comments HEMOGLOBIN (BEAKER) (test code = 8.6 g/dL 13.0-16.8 L 410) HEMATOCRIT (BEAKER) (test code = 25.0 % 40.0-50.0 L 411) CALCIUM, [id number] 14:24:00 Test Item Value Reference Range Interpretation Comments CALCIUM IONIZED (BEAKER) (test 1.00 mmol/L 1.12-1.27 L code = 698) PH, BLOOD (BEAKER) (test code = 7.31 1810) POTASSIUM-STAT [id number] 14:23:00 Test Item Value Reference Range Interpretation Comments POTASSIUM (BEAKER) (test code = 5.0 meq/L 3.6-5.5 379) POTASSIUM-STAT [id number] 13:10:00 Test Item Value Reference Range Interpretation Comments POTASSIUM (BEAKER) 6.0 meq/L 3.6-5.5 HH SPECIMEN NOT HEMOLYZED (test code = 379) BLOOD GAS, [id number] 13:09:00 Test Item Value Reference Range Interpretation Comments PH ARTERIAL (BEAKER) (test code = 7.35 7.35-7.45 383) PCO2 ARTERIAL (BEAKER) (test code 41 mmHg 35-45 = 384) PO2 ARTERIAL (BEAKER) (test code 284 mmHg 80-90 H = 385) O2 SATURATION ARTERIAL (BEAKER) 99.6 % 96.0-97.0 H (test code = 386) HCO3 ARTERIAL (BEAKER) (test code 22 mmol/L 21-29 = 388) BASE EXCESS ARTERIAL (BEAKER) -3.6 mmol/L -2.0-3.0 L (test code = 387) PATIENT TEMPERATURE (BEAKER) 35.2 C (test code = 1818) FIO2 (BEAKER) (test code = 1819) 80.0 % SODIUM NA-STAT [id number] 13:09:00 Test Item Value Reference Range Interpretation Comments SODIUM (BEAKER) (test code = 381) 133 meq/L 136-145 L GLUCOSE-STAT [id number] 13:09:00 Test Item Value Reference Range Interpretation Comments GLUCOSE RANDOM (BEAKER) (test code 180 mg/dL 70-110 H = 652) HGB/HCT (H&H) - STAT [id number] 13:09:00 Test Item Value Reference Range Interpretation Comments HEMOGLOBIN (BEAKER) (test code = 7.7 g/dL 13.0-16.8 L 410) HEMATOCRIT (BEAKER) (test code = 23.0 % 40.0-50.0 L 411) SODIUM NA-STAT [id number] 12:50:00 Test Item Value Reference Range Interpretation Comments SODIUM (BEAKER) (test code = 381) 131 meq/L 136-145 L GLUCOSE-STAT [id number] 12:50:00 Test Item Value Reference Range Interpretation Comments GLUCOSE RANDOM (BEAKER) (test code 192 mg/dL 70-110 H = 652) HGB/HCT (H&H) - STAT [id number] 12:50:00 Test Item Value Reference Range Interpretation Comments HEMOGLOBIN (BEAKER) (test code = 8.4 g/dL 13.0-16.8 L 410) HEMATOCRIT (BEAKER) (test code = 25.0 % 40.0-50.0 L 411) POTASSIUM-STAT [id number] 12:50:00 Test Item Value Reference Range Interpretation Comments POTASSIUM (BEAKER) 6.1 meq/L 3.6-5.5 HH SPECIMEN NOT HEMOLYZED (test code = 379) BLOOD GAS, [id number] 12:49:00 Test Item Value Reference Range Interpretation Comments PH ARTERIAL (BEAKER) (test code = 7.35 7.35-7.45 383) PCO2 ARTERIAL (BEAKER) (test code 40 mmHg 35-45 = 384) PO2 ARTERIAL (BEAKER) (test code 371 mmHg 80-90 H = 385) O2 SATURATION ARTERIAL (BEAKER) 99.8 % 96.0-97.0 H (test code = 386) HCO3 ARTERIAL (BEAKER) (test code 22 mmol/L 21-29 = 388) BASE EXCESS ARTERIAL (BEAKER) -4.2 mmol/L -2.0-3.0 L (test code = 387) PATIENT TEMPERATURE (BEAKER) 35.3 C (test code = 1818) FIO2 (BEAKER) (test code = 1819) 85.0 % POTASSIUM-STAT [id number] 12:16:00 Test Item Value Reference Range Interpretation Comments POTASSIUM (BEAKER) 6.1 meq/L 3.6-5.5 HH SPECIMEN NOT HEMOLYZED (test code = 379) BLOOD GAS, [id number] 12:12:00 Test Item Value Reference Range Interpretation Comments PH ARTERIAL (BEAKER) (test code = 7.36 7.35-7.45 383) PCO2 ARTERIAL (BEAKER) (test code 39 mmHg 35-45 = 384) PO2 ARTERIAL (BEAKER) (test code 273 mmHg 80-90 H = 385) O2 SATURATION ARTERIAL (BEAKER) 99.6 % 96.0-97.0 H (test code = 386) HCO3 ARTERIAL (BEAKER) (test code 23 mmol/L 21-29 = 388) BASE EXCESS ARTERIAL (BEAKER) -3.4 mmol/L -2.0-3.0 L (test code = 387) PATIENT TEMPERATURE (BEAKER) 31.1 C (test code = 1818) FIO2 (BEAKER) (test code = 1819) 75.0 % SODIUM NA-STAT [id number] 12:12:00 Test Item Value Reference Range Interpretation Comments SODIUM (BEAKER) (test code = 381) 129 meq/L 136-145 L GLUCOSE-STAT [id number] 12:12:00 Test Item Value Reference Range Interpretation Comments GLUCOSE RANDOM (BEAKER) (test code 213 mg/dL 70-110 H = 652) HGB/HCT (H&H) - STAT [id number] 12:12:00 Test Item Value Reference Range Interpretation Comments HEMOGLOBIN (BEAKER) (test code = 7.7 g/dL 13.0-16.8 L 410) HEMATOCRIT (BEAKER) (test code = 23.0 % 40.0-50.0 L 411) POTASSIUM-STAT [id number] 11:44:00 Test Item Value Reference Range Interpretation Comments POTASSIUM (BEAKER) (test code = 6.0 meq/L 3.6-5.5 HH 379) BLOOD GAS, [id number] 11:43:00 Test Item Value Reference Range Interpretation Comments PH ARTERIAL (BEAKER) (test code = 7.38 7.35-7.45 383) PCO2 ARTERIAL (BEAKER) (test code 40 mmHg 35-45 = 384) PO2 ARTERIAL (BEAKER) (test code 338 mmHg 80-90 H = 385) O2 SATURATION ARTERIAL (BEAKER) 99.7 % 96.0-97.0 H (test code = 386) HCO3 ARTERIAL (BEAKER) (test code 25 mmol/L 21-29 = 388) BASE EXCESS ARTERIAL (BEAKER) -1.7 mmol/L -2.0-3.0 (test code = 387) PATIENT TEMPERATURE (BEAKER) 30.2 C (test code = 1818) FIO2 (BEAKER) (test code = 1819) 75.0 % SODIUM NA-STAT [id number] 11:43:00 Test Item Value Reference Range Interpretation Comments SODIUM (BEAKER) (test code = 381) 126 meq/L 136-145 L GLUCOSE-STAT [id number] 11:43:00 Test Item Value Reference Range Interpretation Comments GLUCOSE RANDOM (BEAKER) (test code 204 mg/dL 70-110 H = 652) HGB/HCT (H&H) - STAT [id number] 11:43:00 Test Item Value Reference Range Interpretation Comments HEMOGLOBIN (BEAKER) (test code = 8.0 g/dL 13.0-16.8 L 410) HEMATOCRIT (BEAKER) (test code = 24.0 % 40.0-50.0 L 411) BLOOD GAS, [id number] 11:10:00 Test Item Value Reference Range Interpretation Comments PH ARTERIAL (BEAKER) (test code = 7.39 7.35-7.45 383) PCO2 ARTERIAL (BEAKER) (test code 38 mmHg 35-45 = 384) PO2 ARTERIAL (BEAKER) (test code 344 mmHg 80-90 H = 385) O2 SATURATION ARTERIAL (BEAKER) 99.8 % 96.0-97.0 H (test code = 386) HCO3 ARTERIAL (BEAKER) (test code 23 mmol/L 21-29 = 388) BASE EXCESS ARTERIAL (BEAKER) -2.7 mmol/L -2.0-3.0 L (test code = 387) PATIENT TEMPERATURE (BEAKER) 34.2 C (test code = 1818) FIO2 (BEAKER) (test code = 1819) 80.0 % [id number] 10:45:13DOchoa gordon MD - 07/09/2020 10:45 AM CDTFormatting of this note might be different from theoriginal.TEEDate: 07/09/2020 10:00 AM Location: OR Requesting Physician: Tang Conklin MD Examiner: Ochoa Kemp MD Intubated Insertion: easy Pre Intervention Summary: Aorta: Noaneurysm, no dissection, no mobile plaquesAV: trileaflet morphology, no aortic stenosis, no aortic regurgitationLV: normal chamber size , no LVH, normal systolic function (EF 53% by qualitative assessme nt w/ Simpsons), no RWMA, no thrombus. Normal diastolic function by TDI.MV: normal morphology, mild mitral regurgitation borders on moderate by vena contracta. EROA of 0.12cm2 by PISA, VC of 0.2cm , no mitral stenosisLA: no SHAVONNE thrombus, normal size and functionPV: limited visualizationRV: normal sized chamber, normal function, no thrombusTV: normal morphology, no tricuspid regurgitationRA: no thrombusno PFO by color dopper flowAll findings communicated to surgical team. Post Intervention Summary:S/p ACB x3 vesselsAorta: No aneurysm, no dissection, no mobile plaquesAV: trileaflet morphology, no aortic stenosis, no aortic regurgitationLV: normal chamber size, no LVH, normal systolic function with no RWMA.MV: moderate mitral regurgitation - VC increased from 0.35cm to 0.49cm. No BEA.RV: normal sized chamber, normal function, no thrombusTV: normal morphology, no tricuspid regurgitationno PFO bycolor dopper flowAll findings communicated to surgical team.[facility] CALCIUM, [id number] 09:03:00 Test Item Value Reference Range Interpretation Comments CALCIUM IONIZED (BEAKER) (test 1.11 mmol/L 1.12-1.27 L code = 698) PH, BLOOD (BEAKER) (test code = 7.42 1810) BLOOD GAS, [id number] 09:03:00 Test Item Value Reference Range Interpretation Comments PH ARTERIAL (BEAKER) (test code = 7.44 7.35-7.45 383) PCO2 ARTERIAL (BEAKER) (test code 37 mmHg 35-45 = 384) PO2 ARTERIAL (BEAKER) (test code = 65 mmHg 80-90 L 385) O2 SATURATION ARTERIAL (BEAKER) 94.5 % 96.0-97.0 L (test code = 386) HCO3 ARTERIAL (BEAKER) (test code 25 mmol/L 21-29 = 388) BASE EXCESS ARTERIAL (BEAKER) 0.1 mmol/L -2.0-3.0 (test code = 387) PATIENT TEMPERATURE (BEAKER) (test 35.8 C code = 1818) FIO2 (BEAKER) (test code = 1819) 50.0 % SODIUM NA-STAT [id number] 09:03:00 Test Item Value Reference Range Interpretation Comments SODIUM (BEAKER) (test code = 381) 130 meq/L 136-145 L HGB/HCT (H&H) - STAT [id number] 09:03:00 Test Item Value Reference Range Interpretation Comments HEMOGLOBIN (BEAKER) (test code = 11.3 g/dL 13.0-16.8 L 410) HEMATOCRIT (BEAKER) (test code = 33.0 % 40.0-50.0 L 411) GLUCOSE-STAT [id number] 09:02:00 Test Item Value Reference Range Interpretation Comments GLUCOSE RANDOM (BEAKER) (test code 105 mg/dL 70-110 = 652) POTASSIUM-STAT [id number] 09:02:00 Test Item Value Reference Range Interpretation Comments POTASSIUM (BEAKER) (test code = 4.2 meq/L 3.6-5.5 379) [id number] 05:08:00 Test Item Value Reference Range Interpretation Comments MAGNESIUM (BEAKER) (test code = 2.0 mg/dL 1.6-2.6 627) Electric Meter Repairer ID - EDASIBASIC METABOLIC [id number] 05:08:00 Test Item Value Reference Range Interpretation Comments SODIUM (BEAKER) 133 meq/L 136-145 L (test code = 381) POTASSIUM (BEAKER) 4.4 meq/L 3.5-5.1 (test code = 379) CHLORIDE (BEAKER) 102 meq/L 98-107 (test code = 382) CO2 (BEAKER) (test 22 meq/L 22-29 code = 355) BLOOD UREA NITROGEN 15 mg/dL 7-21 (BEAKER) (test code = 354) CREATININE (BEAKER) 1.07 mg/dL 0.57-1.25 (test code = 358) GLUCOSE RANDOM 111 mg/dL 70-105 H (BEAKER) (test code = 652) CALCIUM (BEAKER) 8.5 mg/dL 8.4-10.2 (test code = 697) EGFR (BEAKER) (test 70 mL/min/1.73 ESTIMA ROSA ISELA GFR IS code = 1092) sq m NOT ACCURATE CREATININE CLEARANCE IN PREDICTING GLOMERULAR FILTRATION RATE . ESTIMATED GFR I S NOT APPLICABLE FOR DIALYSIS PATIEN TS. Electric Meter Repairer ID - [id number] 04:57:00 Test Item Value Reference Range Interpretation Comments PARTIAL THROMBOPLASTIN TIME 65.5 seconds 22.5-36.0 H (BEAKER) (test code = 760) CBC W/PLT COUNT & AUTO [id number] 04:36:00 Test Item Value Reference Range Interpretation Comments WHITE BLOOD CELL COUNT (BEAKER) 7.4 K/ L 3.5-10.5 (test code = 775) RED BLOOD CELL COUNT (BEAKER) 3.45 M/ L 4.63-6.08 L (test code = 761) HEMOGLOBIN (BEAKER) (test code = 10.2 GM/DL 13.7-17.5 L 410) HEMATOCRIT (BEAKER) (test code = 30.5 % 40.1-51.0 L 411) MEAN CORPUSCULAR VOLUME (BEAKER) 88.4 fL 79.0-92.2 (test code = 753) MEAN CORPUSCULAR HEMOGLOBIN 29.6 pg 25.7-32.2 (BEAKER) (test code = 751) MEAN CORPUSCULAR HEMOGLOBIN CONC 33.4 GM/DL 32.3-36.5 (BEAKER) (test code = 752) RED CELL DISTRIBUTION WIDTH 14.3 % 11.6-14.4 (BEAKER) (test code = 412) PLATELET COUNT (BEAKER) (test 145 K/CU MM 150-450 L code = 756) MEAN PLATELET VOLUME (BEAKER) 11.4 fL 9.4-12.4 (test code = 754) NUCLEATED RED BLOOD CELLS 0 /100 WBC 0-0 (BEAKER) (test code = 413) NEUTROPHILS RELATIVE PERCENT 69 % (BEAKER) (test code = 429) LYMPHOCYTES RELATIVE PERCENT 15 % (BEAKER) (test code = 430) MONOCYTES RELATIVE PERCENT 13 % (BEAKER) (test code = 431) EOSINOPHILS RELATIVE PERCENT 3 % (BEAKER) (test code = 432) BASOPHILS RELATIVE PERCENT 1 % (BEAKER) (test code = 437) NEUTROPHILS ABSOLUTE COUNT 5.11 K/ L 1.78-5.38 (BEAKER) (test code = 670) LYMPHOCYTES ABSOLUTE COUNT 1.08 K/ L 1.32-3.57 L (BEAKER) (test code = 414) MONOCYTES ABSOLUTE COUNT (BEAKER) 0.93 K/ L 0.30-0.82 H (test code = 415) EOSINOPHILS ABSOLUTE COUNT 0.21 K/ L 0.04-0.54 (BEAKER) (test code = 416) BASOPHILS ABSOLUTE COUNT (BEAKER) 0.06 K/ L 0.01-0.08 (test code = 417) IMMATURE GRANULOCYTES-RELATIVE 1 % 0-1 PERCENT (BEAKER) (test code = 2801) Type and screen, [id number] 04:32:00 Test Item Value Reference Range Interpretation Comments ABO/RH AUTOMATED (BEAKER) (test O POSITIVE code = 2260) Ab Scrn (test code = 890-4) [facility]2020-07-08 19:04:00 Test Item Value Reference Range Interpretation Comments SARS-COV2/RT-PCR Negative Not Detected, (test code = Negative, See 62401-7) external report for linked test SARS-COV-2 [facility]FORM[facility] (test code = 09219-2) SHERON (test code = Negative results do not SHERON) preclude SARS-CoV-2 infection and should not be used as [...] of the Act. Fact Sheet for Healthcare Providers:https://www.[employer]/Documents/Xper t%20Xpress%20SARS%20CoV- 2/Fact%20Sheets/885-9732 %62AOSX-YEV-6%20HEALTHCA RE%20PROVIDERS%20FACT%20 SHEET.pdf Fact Sheet for Healthcare Patients:https://www.[employer]/Documents/Xpert %20Xpress%20SARS%20CoV-2 /Fact%20Sheets/275-3801% 68PJXD-NPX-3%20PATIENT%2 0FACT%20SHEET.pdf Performing Laboratory:[address] [id number] [facility])2020-07-08 19:04:00 Test Item Value Reference Range Interpretation Comments SARS-COV2/RT-PCR (test code Negative Not Detected, Negative, = 6796162) See external report for linked test SARS-COV-[address] [facility] (test code = 3991794) Negative results do not preclude SARS-CoV-2 infection and should not be used as the sole basis for patient management decisions. Negative results must be combined with clinical observations, patient history, and epidemiological information. A false negative result may occur if a specimen is improperly collected, transported or handled.The limit of detection for this assay is 250 copies/mL.This SARS CoV-2 test is a rapid, real-time RT-PCR test intended for the qualitative detection of nucleic acid from SARS-CoV-2 in a nasopharyngeal swab specimen collected from individuals suspected of COVID-19 by their healthcare provider.This test has not been Food and Drug [...] is revoked under Section 564(g) of the Act.Fact Sheet for Healthcare Pro viders:https://www.[employer]/Documents/Xpert%20Xpress%20SARS%20CoV-2/Fact%20Sh eets/302-7592%34PUTY-SKG-3%20HEALTHCARE%20PROVIDERS%20FACT%20SHEET.pdfFact Sheet for Healthcare Patients:https://www.[employer]/Documents/Xpert%20Xpress%20SARS%20CoV-2/Fact%20Sheets/302-3071%20SARS-COV -2%20PATIENT%20FACT%20SHEET.pdfPerforming Laboratory:[facility].[place], [place] [address]CRCJGEVI AGGREGATION: FUNCTION SCREEN 2020-07-08 10:13:00 Test Item Value Reference Range Interpretation Comments [id number] Bashir Orozco MD (BEAKER) (test code = (electronic 2622) signature) PLATELET COUNT AGG 164 K/CU MM 150-450 (BEAKER) (test code = 2656) ADP (BEAKER) (test 41 % 62-100 L This is a code = 4654) corrected result. Previous result was 47 % on 07/06/2020 at 1705 CDT PLATELET RICH 187 k/cu mm 200-300 L PLASMA(BEAKER) (test code = 2134) PLATELET FUNCTION Decreased SCREEN INTERPRETATION aggregation with (BEAKER) (test code = ADP which 4655) indicates platelet dysfunction that may be due to medication effect, uremia, or other platelet function disorders. Clinical correlation is required. PLATELET FUNCTION When platelet rich SCREEN INTERPRETATION plasma count is (BEAKER) (test code = <200,000/mm3, an 090403) abnormal result may be due to a low platelet count rather than a true platelet dysfunction. Platelet Function Screen results may be falsely low with platelet counts<75,000/cu mm.Electric Meter Repairer ID- [id number] 03:30:00 Test Item Value Reference Range Interpretation Comments PARTIAL THROMBOPLASTIN TIME 66.6 seconds 22.5-36.0 H (BEAKER) (test code = 760) [id number] 03:30:00 Test Item Value Reference Range Interpretation Comments MAGNESIUM (BEAKER) (test code = 2.1 mg/dL 1.6-2.6 627) Electric Meter Repairer ID - EDASIBASIC METABOLIC [id number] 03:30:00 Test Item Value Reference Range Interpretation Comments SODIUM (BEAKER) 132 meq/L 136-145 L (test code = 381) POTASSIUM (BEAKER) 4.2 meq/L 3.5-5.1 (test code = 379) CHLORIDE (BEAKER) 102 meq/L 98-107 (test code = 382) CO2 (BEAKER) (test 22 meq/L 22-29 code = 355) BLOOD UREA NITROGEN 14 mg/dL 7-21 (BEAKER) (test code = 354) CREATININE (BEAKER) 0.99 mg/dL 0.57-1.25 (test code = 358) GLUCOSE RANDOM 108 mg/dL 70-105 H (BEAKER) (test code = 652) CALCIUM (BEAKER) 8.6 mg/dL 8.4-10.2 (test code = 697) EGFR (BEAKER) (test 77 mL/min/1.73 ESTIMA ROSA ISELA GFR IS code = 1092) sq m NOT ACCURATE CREATININE CLEARANCE IN PREDICTING GLOMERULAR FILTRATION RATE . ESTIMATED GFR I S NOT APPLICABLE FOR DIALYSIS PATIEN TS. Electric Meter Repairer ID - EDASICBC W/PLT COUNT & AUTO [id number] 03:09:00 Test Item Value Reference Range Interpretation Comments WHITE BLOOD CELL COUNT (BEAKER) 9.0 K/ L 3.5-10.5 (test code = 775) RED BLOOD CELL COUNT (BEAKER) 3.58 M/ L 4.63-6.08 L (test code = 761) HEMOGLOBIN (BEAKER) (test code = 10.6 GM/DL 13.7-17.5 L 410) HEMATOCRIT (BEAKER) (test code = 31.4 % 40.1-51.0 L 411) MEAN CORPUSCULAR VOLUME (BEAKER) 87.7 fL 79.0-92.2 (test code = 753) MEAN CORPUSCULAR HEMOGLOBIN 29.6 pg 25.7-32.2 (BEAKER) (test code = 751) MEAN CORPUSCULAR HEMOGLOBIN CONC 33.8 GM/DL 32.3-36.5 (BEAKER) (test code = 752) RED CELL DISTRIBUTION WIDTH 14.3 % 11.6-14.4 (BEAKER) (test code = 412) PLATELET COUNT (BEAKER) (test 158 K/CU MM 150-450 code = 756) MEAN PLATELET VOLUME (BEAKER) 11.5 fL 9.4-12.4 (test code = 754) NUCLEATED RED BLOOD CELLS 0 /100 WBC 0-0 (BEAKER) (test code = 413) NEUTROPHILS RELATIVE PERCENT 68 % (BEAKER) (test code = 429) LYMPHOCYTES RELATIVE PERCENT 18 % (BEAKER) (test code = 430) MONOCYTES RELATIVE PERCENT 10 % (BEAKER) (test code = 431) EOSINOPHILS RELATIVE PERCENT 3 % (BEAKER) (test code = 432) BASOPHILS RELATIVE PERCENT 1 % (BEAKER) (test code = 437) NEUTROPHILS ABSOLUTE COUNT 6.10 K/ L 1.78-5.38 H (BEAKER) (test code = 670) LYMPHOCYTES ABSOLUTE COUNT 1.59 K/ L 1.32-3.57 (BEAKER) (test code = 414) MONOCYTES ABSOLUTE COUNT (BEAKER) 0.91 K/ L 0.30-0.82 H (test code = 415) EOSINOPHILS ABSOLUTE COUNT 0.27 K/ L 0.04-0.54 (BEAKER) (test code = 416) BASOPHILS ABSOLUTE COUNT (BEAKER) 0.06 K/ L 0.01-0.08 (test code = 417) IMMATURE GRANULOCYTES-RELATIVE 1 % 0-1 PERCENT (BEAKER) (test code = 2801) Hemoglobin [id number] 10:55:00 Test Item Value Reference Range Interpretation Comments Hemoglobin A1C (test code = 4548-4) 5.9 % 4.3-6.1 Lab Interpretation (test code = Normal 86547-0) [facility] [id number] 10:55:00 Test Item Value Reference Range Interpretation Comments HEMOGLOBIN A1C (BEAKER) (test code = 5.9 % 4.3-6.1 368) [id number] 05:58:00 Test Item Value Reference Range Interpretation Comments MAGNESIUM (BEAKER) 2.0 mg/dL 1.6-2.6 Specimen slightly (test code = 627) hemolyzed Electric Meter Repairer ID - PIAYA LBASIC METABOLIC [id number] 05:58:00 Test Item Value Reference Range Interpretation Comments SODIUM (BEAKER) 134 meq/L 136-145 L (test code = 381) POTASSIUM (BEAKER) 3.9 meq/L 3.5-5.1 Specimen slightly (test code = 379) hemolyzed CHLORIDE (BEAKER) 102 meq/L 98-107 (test code = 382) CO2 (BEAKER) (test 22 meq/L 22-29 code = 355) BLOOD UREA NITROGEN 15 mg/dL 7-21 (BEAKER) (test code = 354) CREATININE (BEAKER) 0.98 mg/dL 0.57-1.25 Specimen slightly (test code = 358) hemolyzed GLUCOSE RANDOM 115 mg/dL 70-105 H (BEAKER) (test code = 652) CALCIUM (BEAKER) 8.5 mg/dL 8.4-10.2 (test code = 697) EGFR (BEAKER) (test 78 mL/min/1.73 ESTIMA ROSA ISELA GFR IS code = 1092) sq m NOT ACCURATE CREATININE CLEARANCE IN PREDICTING GLOMERULAR FILTRATION RATE . ESTIMATED GFR I S NOT APPLICABLE FOR DIALYSIS PATIEN TS. Electric Meter Repairer ID - PITIGIST [id number] 05:53:00 Test Item Value Reference Range Interpretation Comments PARTIAL THROMBOPLASTIN TIME 74.7 seconds 22.5-36.0 H (BEAKER) (test code = 760) [id number] 22:50:00 Test Item Value Reference Range Interpretation Comments PARTIAL THROMBOPLASTIN TIME 70.0 seconds 22.5-36.0 H (BEAKER) (test code = 760) PROTHROMBIN [id number] 22:49:00 Test Item Value Reference Range Interpretation Comments PROTIME (BEAKER) (test code = 12.8 seconds 11.9-14.2 759) INR (BEAKER) (test code = 370) 0.99 <=5.90 Effective 03/02/2019: PT Reference Range ChangeNew: 11.9-14.2 Previous: 11.7- 14.7RECOMMENDED COUMADIN/WARFARIN INR THERAPY RANGESSTANDARD DOSE: 2.0-3.0 Includes: PROPHYLAXIS for venous thrombosis, systemic embolization; TREATMENT for venous thrombosis and/or pulmonary embolus.HIGH RISK: Target INR is2.5-3.5 for patients wiht mechanical heart valves.Comprehensive metabolic panel 2020-07-06 22:42:00 Test Item Value Reference Range Interpretation Comments Protein, Total (test 6.6 6.0- 8.3 gm/dL code = 2885-2) Albumin (test code = 3.8 g/dL 3.5-5 81991-8) Alkaline Phosphatase 90 U/L 40-150 (test code = 6768-6) Total Bilirubin (test 0.5 mg/dL 0.2-1.2 code = 1975-2) Sodium (test code = 134 meq/L 136-145 L 2951-2) Potassium (test code = 3.3 meq/L 3.5-5.1 L 2823-3) Chloride (test code = 101 meq/L 98-107 2075-0) CO2 (test code = 24 meq/L 2027-9) BUN (test code = 14 mg/dL 7-21 3094-0) Creatinine (test code 1.01 mg/dL 0.57-1.25 = 2160-0) Glucose (test code = 118 mg/dL 70-105 H 2345-7) Calcium (test code = 8.7 mg/dL 8.4-10.2 60784-6) AST (test code = 23 U/L 5-34 1920-8) ALT (test code = 36 U/L 6-55 1742-6) EGFR (test code = 75 mL/min/1.73 [place] [address]-3) NOT ACCURATE CREATININE CLEARANCE IN PREDICTING GLOMERULAR FILTRATION RATE . ESTIMATED GFR I S NOT APPLICABLE FOR DIALYSIS PATIENTS. SHERON (test code = SHERON) Electric Meter Repairer ID - DB Lab Interpretation Abnormal (test code = 55354-5) [facility] [id number] 22:42:00 Test Item Value Reference Range Interpretation Comments Triglycerides (test 117 mg/dL code = 2571-8) Cholesterol (test code 172 mg/dL = 2093-3) HDL (test code = 56 mg/dL 2084-9) LDL Calculated (test 93 mg/dL code = 97505-6) SHERON (test code = SHERON) Triglyceride Reference Range: Low Risk <150 Borderline 150-199 High Risk 200-499 Very High Risk >=500 Cholesterol Reference Range: Low Risk <200 Borderline 200-239 High Risk >240 HDL Cholesterol Reference Range: Low Risk >=60 High Risk <40 LDL Cholesterol Reference Range: Optimal <100 Near Optimal 100-129 Borderline 130-159 High 160-189 Very High >=190 Electric Meter Repairer ID - DB [facility]UM2020-[facility] 22:42:00 Test Item Value Reference Range Interpretation Comments MAGNESIUM (BEAKER) (test code = 2.0 mg/dL 1.6-2.6 627) Electric Meter Repairer ID - DBCOMPREHENSIVE METABOLIC [id number] 22:42:00 Test Item Value Reference Range Interpretation Comments TOTAL PROTEIN 6.6 gm/dL 6.0-8.3 (BEAKER) (test code = 770) ALBUMIN (BEAKER) 3.8 g/dL 3.5-5.0 (test code = 1145) ALKALINE PHOSPHATASE 90 U/L 40-150 (BEAKER) (test code = 346) BILIRUBIN TOTAL 0.5 mg/dL 0.2-1.2 (BEAKER) (test code = 377) SODIUM (BEAKER) (test 134 meq/L 136-145 L code = 381) POTASSIUM (BEAKER) 3.3 meq/L 3.5-5.1 L (test code = 379) CHLORIDE (BEAKER) 101 meq/L 98-107 (test code = 382) CO2 (BEAKER) (test 24 meq/L 22-29 code = 355) BLOOD UREA NITROGEN 14 mg/dL 7-21 (BEAKER) (test code = 354) CREATININE (BEAKER) 1.01 mg/dL 0.57-1.25 (test code = 358) GLUCOSE RANDOM 118 mg/dL 70-105 H (BEAKER) (test code = 652) CALCIUM (BEAKER) 8.7 mg/dL 8.4-10.2 (test code = 697) AST (SGOT) (BEAKER) 23 U/L 5-34 (test code = 353) ALT (SGPT) (BEAKER) 36 U/L 6-55 (test code = 347) EGFR (BEAKER) (test 75 mL/min/1.73 ESTIMA ROSA ISELA GFR IS code = 1092) sq m NOT ACCURATE CREATININE CLEARANCE IN PREDICTING GLOMERULAR FILTRATION RATE . ESTIMATED GFR I S NOT APPLICABLE FOR DIALYSIS PATIEN TS. Electric Meter Repairer ID - DBLIPID [id number] 22:42:00 Test Item Value Reference Range Interpretation Comments TRIGLYCERIDES (BEAKER) (test code = 117 mg/dL 540) CHOLESTEROL (BEAKER) (test code = 172 mg/dL 631) HDL CHOLESTEROL (BEAKER) (test code 56 mg/dL = 976) LDL CHOLESTEROL CALCULATED (BEAKER) 93 mg/dL (test code = 633) Triglyceride Reference Range: Low Risk <150 Borderline 150-199 High Risk 200-499 Very High Risk >=500Cholesterol Reference Range: Low Risk <200 Borderline 200-239 High Risk >240HDL Cholesterol Reference Range: Low Risk >=60 High Risk <40LDL Cholesterol Reference Range: Optimal <100 Near Optimal 100-129 Borderline 130-159 High 160-189 Very High >=190 Electric Meter Repairer ID - DBCBC W/PLT COUNT & AUTO [id number] 22:20:00 Test Item Value Reference Range Interpretation Comments WHITE BLOOD CELL COUNT (BEAKER) 9.0 K/ L 3.5-10.5 (test code = 775) RED BLOOD CELL COUNT (BEAKER) 3.79 M/ L 4.63-6.08 L (test code = 761) HEMOGLOBIN (BEAKER) (test code = 11.4 GM/DL 13.7-17.5 L 410) HEMATOCRIT (BEAKER) (test code = 32.8 % 40.1-51.0 L 411) MEAN CORPUSCULAR VOLUME (BEAKER) 86.5 fL 79.0-92.2 (test code = 753) MEAN CORPUSCULAR HEMOGLOBIN 30.1 pg 25.7-32.2 (BEAKER) (test code = 751) MEAN CORPUSCULAR HEMOGLOBIN CONC 34.8 GM/DL 32.3-36.5 (BEAKER) (test code = 752) RED CELL DISTRIBUTION WIDTH 14.0 % 11.6-14.4 (BEAKER) (test code = 412) PLATELET COUNT (BEAKER) (test 166 K/CU MM 150-450 code = 756) MEAN PLATELET VOLUME (BEAKER) 10.8 fL 9.4-12.4 (test code = 754) NUCLEATED RED BLOOD CELLS 0 /100 WBC 0-0 (BEAKER) (test code = 413) NEUTROPHILS RELATIVE PERCENT 65 % (BEAKER) (test code = 429) LYMPHOCYTES RELATIVE PERCENT 21 % (BEAKER) (test code = 430) MONOCYTES RELATIVE PERCENT 9 % (BEAKER) (test code = 431) EOSINOPHILS RELATIVE PERCENT 4 % (BEAKER) (test code = 432) BASOPHILS RELATIVE PERCENT 1 % (BEAKER) (test code = 437) NEUTROPHILS ABSOLUTE COUNT 5.83 K/ L 1.78-5.38 H (BEAKER) (test code = 670) LYMPHOCYTES ABSOLUTE COUNT 1.89 K/ L 1.32-3.57 (BEAKER) (test code = 414) MONOCYTES ABSOLUTE COUNT (BEAKER) 0.83 K/ L 0.30-0.82 H (test code = 415) EOSINOPHILS ABSOLUTE COUNT 0.33 K/ L 0.04-0.54 (BEAKER) (test code = 416) BASOPHILS ABSOLUTE COUNT (BEAKER) 0.06 K/ L 0.01-0.08 (test code = 417) IMMATURE GRANULOCYTES-RELATIVE 0 % 0-1 PERCENT (BEAKER) (test code = 2801) [id number] 05:30:00 Test Item Value Reference Range Interpretation Comments MAGNESIUM (BEAKER) (test code = 2.0 mg/dL 1.6-2.6 627) Electric Meter Repairer ID - AYNETH MBASIC METABOLIC [id number] 05:30:00 Test Item Value Reference Range Interpretation Comments SODIUM (BEAKER) 136 meq/L 136-145 (test code = 381) POTASSIUM (BEAKER) 3.9 meq/L 3.5-5.1 (test code = 379) CHLORIDE (BEAKER) 104 meq/L 98-107 (test code = 382) CO2 (BEAKER) (test 23 meq/L 22-29 code = 355) BLOOD UREA NITROGEN 15 mg/dL 7-21 (BEAKER) (test code = 354) CREATININE (BEAKER) 1.00 mg/dL 0.57-1.25 (test code = 358) GLUCOSE RANDOM 119 mg/dL 70-105 H (BEAKER) (test code = 652) CALCIUM (BEAKER) 8.5 mg/dL 8.4-10.2 (test code = 697) EGFR (BEAKER) (test 76 mL/min/1.73 ESTIMA ROSA ISELA GFR IS code = 1092) sq m NOT ACCURATE CREATININE CLEARANCE IN PREDICTING GLOMERULAR FILTRATION RATE . ESTIMATED GFR I S NOT APPLICABLE FOR DIALYSIS PATIEN TS. Electric Meter Repairer ID - YANETH [id number] 05:04:00 Test Item Value Reference Range Interpretation Comments Protime (test code = 12.9 11.9- 14.2 5902-2) seconds INR (test code = 1.00 <=5.90 6301-6) PTT (test code = 71.5 22.5- 36.0 H 94575-7) seconds SHERON (test code = SHERON) Effective 03/02/2019: PT Reference Range ChangeNew: 11.9-14.2 Previous: 11.7-14.7 RECOMMENDED COUMADIN/WARFARIN INR THERAPY RANGESSTANDARD DOSE: 2.0-3.0 Includes: PROPHYLAXIS for venous thrombosis, systemic embolization; TREATMENT for venous thrombosis and/or pulmonary embolus.HIGH RISK: Target INR is 2.5-3.5 for patients wiht mechanical heart valves. Lab Interpretation Abnormal (test code = 63183-4) [facility]PT/[id number] 05:04:00 Test Item Value Reference Range Interpretation Comments PROTIME (BEAKER) (test code = 12.9 seconds 11.9-14.2 759) INR (BEAKER) (test code = 370) 1.00 <=5.90 PARTIAL THROMBOPLASTIN TIME 71.5 seconds 22.5-36.0 H (BEAKER) (test code = 760) Effective 03/02/2019: PT Reference Range ChangeNew: 11.9-14.2 Previous: 11.7- 14.7RECOMMENDED COUMADIN/WARFARIN INR THERAPY RANGESSTANDARD DOSE: 2.0-3.0 Includes: PROPHYLAXIS for venous thrombosis, systemic embolization; TREATMENT for venous thrombosis and/or pulmonary embolus.HIGH RISK: Target INR is2.5-3.5 for patients wiht mechanical heart valves.CBC W/PLT COUNT & AUTO [id number] 04:50:00 Test Item Value Reference Range Interpretation Comments WHITE BLOOD CELL COUNT (BEAKER) 7.3 K/ L 3.5-10.5 (test code = 775) RED BLOOD CELL COUNT (BEAKER) 4.13 M/ L 4.63-6.08 L (test code = 761) HEMOGLOBIN (BEAKER) (test code = 12.5 GM/DL 13.7-17.5 L 410) HEMATOCRIT (BEAKER) (test code = 36.2 % 40.1-51.0 L 411) MEAN CORPUSCULAR VOLUME (BEAKER) 87.7 fL 79.0-92.2 (test code = 753) MEAN CORPUSCULAR HEMOGLOBIN 30.3 pg 25.7-32.2 (BEAKER) (test code = 751) MEAN CORPUSCULAR HEMOGLOBIN CONC 34.5 GM/DL 32.3-36.5 (BEAKER) (test code = 752) RED CELL DISTRIBUTION WIDTH 13.7 % 11.6-14.4 (BEAKER) (test code = 412) PLATELET COUNT (BEAKER) (test 171 K/CU MM 150-450 code = 756) MEAN PLATELET VOLUME (BEAKER) 11.2 fL 9.4-12.4 (test code = 754) NUCLEATED RED BLOOD CELLS 0 /100 WBC 0-0 (BEAKER) (test code = 413) NEUTROPHILS RELATIVE PERCENT 67 % (BEAKER) (test code = 429) LYMPHOCYTES RELATIVE PERCENT 20 % (BEAKER) (test code = 430) MONOCYTES RELATIVE PERCENT 8 % (BEAKER) (test code = 431) EOSINOPHILS RELATIVE PERCENT 4 % (BEAKER) (test code = 432) BASOPHILS RELATIVE PERCENT 1 % (BEAKER) (test code = 437) NEUTROPHILS ABSOLUTE COUNT 4.88 K/ L 1.78-5.38 (BEAKER) (test code = 670) LYMPHOCYTES ABSOLUTE COUNT 1.43 K/ L 1.32-3.57 (BEAKER) (test code = 414) MONOCYTES ABSOLUTE COUNT (BEAKER) 0.59 K/ L 0.30-0.82 (test code = 415) EOSINOPHILS ABSOLUTE COUNT 0.29 K/ L 0.04-0.54 (BEAKER) (test code = 416) BASOPHILS ABSOLUTE COUNT (BEAKER) 0.05 K/ L 0.01-0.08 (test code = 417) IMMATURE GRANULOCYTES-RELATIVE 0 % 0-1 PERCENT (BEAKER) (test code = 2801) Treadmill tolerance(Non-Nuclear Treadmill)2020-07-05 13:51:08Interface, External Ris In - 07/05/2020 1:51 PM CDTProtocol Name Regadenoson Time In Exercise Phase 00:01:00 Max. Systolic BP 106 mmHgMax Diastolic BP 72 mmHgMax Heart Rate 71 BPMMax Predicted Heart Rate 158 BPMReason For Termination Predetermined end point Reason for Test CAD Target HR Formula (220 - Age)*100% Arrhythmias ventricular premature beats-isolated Resting ECG Normal sinus rhythm ST Changes No Significant Changes Overall Impression Indeterminate due to pharmacological stress Chest Pain none HR Response To Exercise BP Response To Exercise asa,atorvastatin,heparin gttclopidogrel,MetoprololConfirmed by fellow Brendan Villavicencio ([id number]) on 07/03/2020 1:27:14 PMConfirmed by MD Sara, [facility] ([id number]) on 07/05/2020 1:51:03 [facility]PLATELET AGGREGATION: FUNCTION [id number] 09:19:00 Test Item Value Reference Range Interpretation Comments [id number] Dee Campbell, (BEAKER) (test code = (electronic 1427) signature) PLATELET COUNT AGG 192 K/CU MM 150-450 (BEAKER) (test code = 2656) ADP (BEAKER) (test code 21 % 62-100 L = 4654) PLATELET RICH 278 k/cu mm 200-300 PLASMA(BEAKER) (test code = 2134) PLATELET FUNCTION SCREEN Decreased aggregation INTERPRETATION (BEAKER) with ADP which (test code = 4655) indicates platelet dysfunction that may be due to medication effect, uremia, or other platelet function disorders. Clinical correlation is required. Platelet Function Screen results may be falsely low with platelet counts<75,000/cu mm.Electric Meter Repairer ID- [id number] doppler [id number] 08:21:19Ejection [facility] ECHO HEARTLAB MKCKESSON CPACSRight Impression1. There is <50% diameter reduction (approximately 23% by 2-D measurement)in the internal carotid artery with a peak velocity of 97cm/sec andheterogeneous plaque.2. There is non-occluding plaque in the external carotid artery.3. There is non-occluding plaque in the common carotid artery.4. The vertebral artery flow is antegrade.5.The subclavian artery is patent with a velocity of 101 cm/sec.Left Impression1. There is 50-69% diameter reduction (approximately 51% by 2-D measurement)in the internal carotid artery with heterogeneous plaque, a peak velocity of156 cm/sec and an ICA/CCA peak systolic velocity ratio of 1.51.2. There is non-occluding plaque in the external carotid artery.3. There is non-occluding plaque in the common carotid artery.4. The vertebral artery flow is antegrade.5. The subclavian artery is patent with a velocity of 109 cm/sec. Conclusions Summary Carotid duplex scanning and color flow imaging were perfo rmed bilaterally. The arteries were adequately visualized. The right internal carotid artery had <50% hemodynamically insignificant stenosis (approximately 23% by 2-D measurement) with heterogeneousplaque. The left internal carotid artery had 50-69% hemodynamically significant stenosis (approximately 51% by 2-D measurement) with heterogeneous plaque. The vertebral artery flow was antegrade and normal bilaterally. The subclavian arteries were patent with normal flow bilaterally where visualized.Signature Velocities are measured in cm/s ; Diameters are measured in cm Carotid Right Measurements+ +----+----+-----+ + +---- -------+!Location !PSV !EDV !Angle!%Stenosis 2D!%Stenosis Doppler!Tortuosity !+ +----+----+---- -+ + + +!Prox CCA !76.4!17.4!60 ! ! ! !+ +----+----+-----+ + + +!Di st CCA !90.1!24.2!60 ! ! ! !+ +----+----+--- --+ + + +!Prox ICA !94.4!26.7!60 ! ! ! !+ +----+----+-----+ + + +!Di st ICA !97.5!22.4!60 ! ! ! !+ +----+----+-- ---+ + + +!Prox ECA !102 !9.94!60 ! ! ! !+ +----+----+-----+ + + +!Ve rtebral !25 !8.34!60 ! ! ! !+ +----+----+- ----+ + + +!Prox Subclavian!101 ! !60 ! ! ! !+ +----+----+-----+ + + + - Additional Measurements:ICAPSV/CCAPSV 1.08.ICAEDV/CCAEDV 1.53. Carotid Left Measurements+--------- ------+----+----+-----+ + + +!Location !PSV !EDV !Angle!%Stenosis 2D!%Stenosis Doppler!Tortuosity !+ +----+----+-----+ + ---+ +!Prox CCA !107 !22.7!60 ! ! ! !+-------- -------+----+----+-----+ + + +!Dist CCA !103 !31.4!60 ! ! ! !+ +----+----+-----+ + ----+ +!Prox ICA !156 !43.9!60 ! ! ! !+------- --------+----+----+-----+ + + +!Dist ICA !140 !39.5!60 ! ! ! !+ +----+----+-----+ + -----+ +!Prox ECA !140 !13.6!60 ! ! ! !+------ ---------+----+----+-----+ + + +!Vertebral !74.5!15.7!60! ! ! !+ +----+----+-----+ + ------+ +!Prox Subclavian!109 ! !60 ! ! ! !+----- +----+----+-----+ + + + - Additional Measurements:ICAPSV/CCAPSV 1.51.ICAEDV/CCAEDV 1.93. Interface, External Ris In - 07/05/2020 8:21 AM CDTPV LAB - Carotid Duplex Study Demographics Patient Name IND[place] AMIN Date of Study 07/04/2020 MCKINLEY LEE Age 60 Visit Number [id number] Gender Male Accession Number [id number] Date of 1960 Referring Debi Morales Room Number 7528 Physician Footwear Sales Leader Domitila Cota RVT Interpreting Jackie Mccoy MD ProcedureType of Study: Cerebral: Carotid, CAROTID DOPPLER, BILATERAL. Indications for Study:Preop ACB.Patient Status:TODAY.Study Location:Portable.Technical Quality:Adequate visualization.Risk FactorsHistory of Disease+ +----+ -------+!Diagnosis !Date!Comments !+ +----+ +!History/Risk Factors: ! !CAD, HLD, HTN, former smoker !+ +----+ --------+ImpressionsRight Impression1. There is <50% diameter reduction (approximately 23% by 2-Dmeasurement)in the internal carotid artery with a peak velocity of 97 cm/sec andheterogeneous plaque.2. There is non-occluding plaque in the external carotid artery.3. There is non-occluding plaque in the common carotid artery.4. The vertebral artery flow is antegrade.5. The subclavian artery is patent with a velocity of 101 cm/sec.Left Impression1. There is 50-69% diameter reduction (approximately 51% by 2-D measurement)in the internal carotid artery with heterogeneous plaque, a peak velocity cy419zn/sec and an ICA/CCA peak systolic velocity ratio of 1.51.2. There is non-occluding plaque in the ex ternal carotid artery.3. There is non-occluding plaque in the common carotid artery.4. The vertebralartery flow is antegrade.5. The subclavian artery is patent with a [...] flow was antegrade and normal bilaterally. The subclavianarteries were patent with normal flow bilaterally where visualized. Signature Velocities are measured in cm/s ; Diameters are measured in cmCarotid Right Measurements+ --+----+----+-----+ + + +!Location !PSV !EDV !Angle!%Stenosis 2D!%Stenosis Doppler!Tortuosity !+ +----+----+-----+ + + +!Prox CCA !76.4!17.4!60 ! ! ! !+ ---+----+----+-----+ + + +!Dist CCA !90.1!24.2!60 ! ! ! !+ +----+----+-----+ + + +!Prox ICA !94.4!26.7!60 ! ! ! !+ ----+----+----+-----+ + + +!Dist ICA !97.5!22.4!60 ! ! ! !+ +----+----+-----+ + -+ +!Prox ECA !102 !9.94!60 ! ! ! !+ -----+----+----+-----+ + + +!Vertebral !25 !8.34!60 ! ! ! !+ +----+----+-----+ + --+ +!Prox Subclavian!101 ! !60 ! ! ! !+--------- ------+----+----+-----+ + + + - Additional Measurements:ICAPSV/CCAPSV 1.08.ICAEDV/CCAEDV 1.53.Carotid Left Measurements+ +----+----+-----+ + + +!Location !PSV !EDV !Angle!%Stenosis 2D!%Stenosis Doppler!Tortuosity !+ +----+----+-----+ + + +!Pr ox CCA !107 !22.7!60 ! ! ! !+ +----+----+-----+ -+ + +!Dist CCA !103 !31.4!60 ! ! ! !+ +----+----+-----+ + + +!Pr ox ICA !156 !43.9!60 ! ! ! !+ +----+----+-----+ --+ + +!Dist ICA !140 !39.5!60 ! ! ! !+ +----+----+-----+ + + +!Pr ox ECA !140 !13.6!60 ! ! ! !+ +----+----+-----+--------- ---+ + +!Vertebral !74.5!15.7!60 ! ! ! !+ +----+----+-----+ + + +!Pr ox Subclavian!109 ! !60 ! ! ! !+ +----+----+-----+ + + + - Additional Measurements:ICAPSV/CCAPSV 1.51.ICAEDV/CCAEDV 1.93.[facility] Hospital[facility]in Mapping Legs [id number] 08:21:02Ejection FractionSLEH ECHO HEARTLAB MKCKESSON CPACSRight Impression1. There is no deep venous venousobstruction in the profunda femoral,femoral, popliteal, posterior tibial or peroneal veins.2. The common femoral vein could not be visualized due to a bandage.3. The great saphenous vein could not be visualized at the saphenofemoraljunction due to a bandage.Left Impression1. There is no deep venous obstruction in the common femoral, profundafemoral, femoral, popliteal, posterior tibial or peroneal veins.2. There is no superficial venous obstruction in the great saphenous vein. Conclusions SummaryVenous duplex imaging and compression of the bilateral lower extremities was performed. The veins were adequately visualized. The bilateral venous systems were patent and compressible with no evidence of thrombus where visualized. Superficial venous measurements are documented below. Signature ------ Velocities are measured in cm/s ; Diameters are measured in cm LE Vein Mapping Superficial - Great Saphenous Vein Right Left + + +------- + + + + + !Location ! [...] + + + + + !GSV High Calf! !0.39 ! ! !0.16 ! ! + + +---- + + + + + !GSV Mid Calf ! !0.4 ! ! !0.2 ! ! + + + + + + + + !GSV Low Calf ! !0.38 ! ! !0.28 ! ! + + + + + + + + !GSV Ankle ! !0.26 ! ! + + + + + Interface, External Ris In - 07/05/2020 8:21 AM CDTPV LAB - Lower Extremities Vein Mapping Demographics Patient Name INDIANA AMIN Date of Study 07/04/2020 MCKINLEY LEE Age 60 Visit Number [id number] Gender Male Accession Number [id number] Date of 1960 Referring Debi Morales Room Number 6101 Physician Footwear Sales Leader Domitila Cota, RVT Interpreting Rosie Pino, Physician ProcedureType of Study: Veins: Lower Extremity Vein Mapping, VEIN MAPPING, LOWER EXTREMITY, BILATERAL. Indications for Study:Preop ACB.Patient Status:TODAY.Study Location:Portable.Technical Quality:Adequate visualization.Risk FactorsHistory of Disease+ +----+ --+!Diagnosis !Date!Comments !+ +-- --+ +!History/Risk Factors: ! !CAD, HLD, HTN, formersmoker !+ +----+ +Imp ressionsRight Impression1. There is no deep venous venous obstruction in the profunda femoral,femoral, popliteal, posterior tibial or peroneal veins.2. The common femoral vein could not be visualized due to a bandage.3. The great saphenous vein could not be visualized at the saphenofemoraljunction due to a bandage.Left Impression1. There is no deep venous obstruction in the common femoral, profundafemoral, femoral, popliteal, posterior tibial or peroneal veins.2. There is no superficial venous obstruction in the great saphenous vein. Conclusions Summary Venous duplex imaging and compression of thebilateral lower extremities was performed. The veins were adequately visualized. The bilateral venous systems were patent and compressible with no evidence of thrombus where visualized. Superficial venous measurements are documented below. Signature Velocities are measured in cm/s ; Diameters are measured in cmLE Vein Mapping Superficial - Great Saphenous Vein Right Left + + + + + + + + !Location ! !Diameter !Depth ! !Diameter !Depth ! + + + + + +--- + + !Sapheno Femoral Junction ! !0.44 [...] ! !0.36 ! ! !0.37 ! ! +- + + + + + + + [...] ! !0.26 ! ! + + + ----+ +[facility]MAGN[facility] 2020-07-05 05:51:00 Test Item Value Reference Range Interpretation Comments MAGNESIUM (BEAKER) (test code = 1.9 mg/dL 1.6-2.6 627) Electric Meter Repairer ID - EDASIBASIC METABOLIC [id number] 05:51:00 Test Item Value Reference Range Interpretation Comments SODIUM (BEAKER) 137 meq/L 136-145 (test code = 381) POTASSIUM (BEAKER) 3.9 meq/L 3.5-5.1 (test code = 379) CHLORIDE (BEAKER) 104 meq/L 98-107 (test code = 382) CO2 (BEAKER) (test 25 meq/L 22-29 code = 355) BLOOD UREA NITROGEN 15 mg/dL 7-21 (BEAKER) (test code = 354) CREATININE (BEAKER) 1.02 mg/dL 0.57-1.25 (test code = 358) GLUCOSE RANDOM 123 mg/dL 70-105 H (BEAKER) (test code = 652) CALCIUM (BEAKER) 8.7 mg/dL 8.4-10.2 (test code = 697) EGFR (BEAKER) (test 74 mL/min/1.73 ESTIMA ROSA ISELA GFR IS code = 1092) sq m NOT ACCURATE CREATININE CLEARANCE IN PREDICTING GLOMERULAR FILTRATION RATE . ESTIMATED GFR I S NOT APPLICABLE FOR DIALYSIS PATIEN TS. Electric Meter Repairer ID - [id number] 05:44:00 Test Item Value Reference Range Interpretation Comments PARTIAL THROMBOPLASTIN TIME 77.6 seconds 22.5-36.0 H (BEAKER) (test code = 760) CBC W/PLT COUNT & AUTO [id number] 05:37:00 Test Item Value Reference Range Interpretation Comments WHITE BLOOD CELL COUNT (BEAKER) 6.1 K/ L 3.5-10.5 (test code = 775) RED BLOOD CELL COUNT (BEAKER) 4.33 M/ L 4.63-6.08 L (test code = 761) HEMOGLOBIN (BEAKER) (test code = 12.6 GM/DL 13.7-17.5 L 410) HEMATOCRIT (BEAKER) (test code = 38.7 % 40.1-51.0 L 411) MEAN CORPUSCULAR VOLUME (BEAKER) 89.4 fL 79.0-92.2 (test code = 753) MEAN CORPUSCULAR HEMOGLOBIN 29.1 pg 25.7-32.2 (BEAKER) (test code = 751) MEAN CORPUSCULAR HEMOGLOBIN CONC 32.6 GM/DL 32.3-36.5 (BEAKER) (test code = 752) RED CELL DISTRIBUTION WIDTH 14.3 % 11.6-14.4 (BEAKER) (test code = 412) PLATELET COUNT (BEAKER) (test 183 K/CU MM 150-450 code = 756) MEAN PLATELET VOLUME (BEAKER) 10.9 fL 9.4-12.4 (test code = 754) NUCLEATED RED BLOOD CELLS 0 /100 WBC 0-0 (BEAKER) (test code = 413) NEUTROPHILS RELATIVE PERCENT 65 % (BEAKER) (test code = 429) LYMPHOCYTES RELATIVE PERCENT 22 % (BEAKER) (test code = 430) MONOCYTES RELATIVE PERCENT 8 % (BEAKER) (test code = 431) EOSINOPHILS RELATIVE PERCENT 4 % (BEAKER) (test code = 432) BASOPHILS RELATIVE PERCENT 1 % (BEAKER) (test code = 437) NEUTROPHILS ABSOLUTE COUNT 3.93 K/ L 1.78-5.38 (BEAKER) (test code = 670) LYMPHOCYTES ABSOLUTE COUNT 1.31 K/ L 1.32-3.57 L (BEAKER) (test code = 414) MONOCYTES ABSOLUTE COUNT (BEAKER) 0.50 K/ L 0.30-0.82 (test code = 415) EOSINOPHILS ABSOLUTE COUNT 0.25 K/ L 0.04-0.54 (BEAKER) (test code = 416) BASOPHILS ABSOLUTE COUNT (BEAKER) 0.04 K/ L 0.01-0.08 (test code = 417) IMMATURE GRANULOCYTES-RELATIVE 1 % 0-1 PERCENT (BEAKER) (test code = 2801) [id number] 22:27:00 Test Item Value Reference Range Interpretation Comments PARTIAL THROMBOPLASTIN TIME 72.6 seconds 22.5-36.0 H (BEAKER) (test code = 760) [id number] 12:16:00 Test Item Value Reference Range Interpretation Comments ACTIVATED CLOTTING TIME 263 sec : 74 -137 seconds, (BEAKER) (test code = Baseli ne: TESTED AT 441) [facility] [address] [place], [address]: Electric Meter Repairer/Techni norah ID = [id number] for FILI VALDEZ [id number] 04:38:00 Test Item Value Reference Range Interpretation Comments MAGNESIUM (BEAKER) 2.0 mg/dL 1.6-2.6 Specimen slightly (test code = 627) hemolyzed Electric Meter Repairer ID - EDASIBASIC METABOLIC [id number] 04:38:00 Test Item Value Reference Range Interpretation Comments SODIUM (BEAKER) 137 meq/L 136-145 (test code = 381) POTASSIUM (BEAKER) 4.0 meq/L 3.5-5.1 Specimen slightly (test code = 379) hemolyzed CHLORIDE (BEAKER) 104 meq/L 98-107 (test code = 382) CO2 (BEAKER) (test 24 meq/L 22-29 code = 355) BLOOD UREA NITROGEN 15 mg/dL 7-21 (BEAKER) (test code = 354) CREATININE (BEAKER) 1.01 mg/dL 0.57-1.25 Specimen slightly (test code = 358) hemolyzed GLUCOSE RANDOM 119 mg/dL 70-105 H (BEAKER) (test code = 652) CALCIUM (BEAKER) 8.5 mg/dL 8.4-10.2 (test code = 697) EGFR (BEAKER) (test 75 mL/min/1.73 ESTIMA ROSA ISELA GFR IS code = 1092) sq m NOT ACCURATE CREATININE CLEARANCE IN PREDICTING GLOMERULAR FILTRATION RATE . ESTIMATED GFR I S NOT APPLICABLE FOR DIALYSIS PATIEN TS. Electric Meter Repairer ID - [id number] 04:18:00 Test Item Value Reference Range Interpretation Comments PARTIAL THROMBOPLASTIN TIME 90.4 seconds 22.5-36.0 H (BEAKER) (test code = 760) CBC W/PLT COUNT & AUTO [id number] 04:08:00 Test Item Value Reference Range Interpretation Comments WHITE BLOOD CELL COUNT (BEAKER) 6.3 K/ L 3.5-10.5 (test code = 775) RED BLOOD CELL COUNT (BEAKER) 4.24 M/ L 4.63-6.08 L (test code = 761) HEMOGLOBIN (BEAKER) (test code = 12.5 GM/DL 13.7-17.5 L 410) HEMATOCRIT (BEAKER) (test code = 37.7 % 40.1-51.0 L 411) MEAN CORPUSCULAR VOLUME (BEAKER) 88.9 fL 79.0-92.2 (test code = 753) MEAN CORPUSCULAR HEMOGLOBIN 29.5 pg 25.7-32.2 (BEAKER) (test code = 751) MEAN CORPUSCULAR HEMOGLOBIN CONC 33.2 GM/DL 32.3-36.5 (BEAKER) (test code = 752) RED CELL DISTRIBUTION WIDTH 14.8 % 11.6-14.4 H (BEAKER) (test code = 412) PLATELET COUNT (BEAKER) (test 201 K/CU MM 150-450 code = 756) MEAN PLATELET VOLUME (BEAKER) 10.9 fL 9.4-12.4 (test code = 754) NUCLEATED RED BLOOD CELLS 0 /100 WBC 0-0 (BEAKER) (test code = 413) NEUTROPHILS RELATIVE PERCENT 65 % (BEAKER) (test code = 429) LYMPHOCYTES RELATIVE PERCENT 20 % (BEAKER) (test code = 430) MONOCYTES RELATIVE PERCENT 11 % (BEAKER) (test code = 431) EOSINOPHILS RELATIVE PERCENT 3 % (BEAKER) (test code = 432) BASOPHILS RELATIVE PERCENT 1 % (BEAKER) (test code = 437) NEUTROPHILS ABSOLUTE COUNT 4.07 K/ L 1.78-5.38 (BEAKER) (test code = 670) LYMPHOCYTES ABSOLUTE COUNT 1.27 K/ L 1.32-3.57 L (BEAKER) (test code = 414) MONOCYTES ABSOLUTE COUNT (BEAKER) 0.70 K/ L 0.30-0.82 (test code = 415) EOSINOPHILS ABSOLUTE COUNT 0.18 K/ L 0.04-0.54 (BEAKER) (test code = 416) BASOPHILS ABSOLUTE COUNT (BEAKER) 0.06 K/ L 0.01-0.08 (test code = 417) IMMATURE GRANULOCYTES-RELATIVE 0 % 0-1 PERCENT (BEAKER) (test code = 2801) [id number] 17:48:00 Test Item Value Reference Range Interpretation Comments MAGNESIUM (BEAKER) 2.2 mg/dL 1.6-2.6 Specimen moderately (test code = 627) hemolyzed Electric Meter Repairer ID - [id number] 17:48:00 Test Item Value Reference Range Interpretation Comments POTASSIUM (BEAKER) 3.7 meq/L 3.5-5.1 Specimen moderately (test code = 379) hemolyzed Electric Meter Repairer ID - [id number] 17:39:00 Test Item Value Reference Range Interpretation Comments PARTIAL THROMBOPLASTIN TIME 51.1 seconds 22.5-36.0 H (BEAKER) (test code = 760) PET/CT, CARDIAC PERF REST AND [id number] 14:30:00Reason for exam:->CAD FINAL REPORT PROCEDURE: MYOCARDIAL PERFUSION PET IMAGING (Rest/Stress)CPT CODE: 90033 INDICATION: CAD CARDIOVASCULAR PROFILE:CAD History: CADSymptoms: Chest pain, dyspneaRisk Factors: NoneBMI: 34.0Medications: Atorvastatin, clopidogrel, metoprolol STRESS PROTOCOL:Pharmacologic stress was achieved with a 10-second intravenous infusion of regadenoson 0.4 mg. The radiopharmaceutical was administered 30 seconds after the start of the regadenoson infusion. IMAGING PROTOCOL:Limited low-dose CT imaging was performed for attenuation correction. 33.1 mCi of Rb-82 chloride was injectedintravenously at rest, and gated PET images were obtained. Then, 32.9 mCi of Rb-82 chloride was injected intravenously at peak stress, and gated PET images were obtained. Image quality is good. REST FINDINGS:HR: 64/minBP: 119/77 mmHgPrelim. EKG: Normal sinus rhythm.Perfusion: Normal.Basal to apical anterior defect is likely artifactual. Mild apical perfusion defect. Wall Motion: Normal (LVEF 65%).LV V olume: Normal.RV Volume: Normal. STRESS FINDINGS:HR: 71/min (44% of MPHR)BP: 106/72 mmHgPrelim. EKG:No ischemic changes.Symptoms: None (treatment not required).Perfusion: Mild apical perfusion defect.Basal to apical anterior defect is likely artifactual.Wall Motion: Normal (LVEF 68%).LV Volume: Not s ignificantly changed from rest. IMPRESSION:1. Suspicious study.2. Abnormal myocardial perfusion. Mild, partially reversible apical perfusion defect3. Normal resting LVEF, which does not deteriorate with pharmacologic stress.4. Normal extracardiac tracer distribution.5. There is no prior study for arielle rison. Signed: Gomez, Kinza MDReport Verified Date/Time: 07/03/2020 14:30:46 Reading Location: [address] Reading Room NM Myocardial Perfusion Pet/CT (Rest & Stress)2020-07-03 14:30:00Interface, External Ris In - 07/03/2020 2:32 PM CDTFINAL REPORT PROCEDURE: MYOCARDIAL PERFUSION PET IMAGING (Rest/Stress)CPT CODE: 56953 INDICATION: CAD CARDIOVASCULAR PROFILE:CAD History: CADSymptoms: Chest pain, dyspneaRisk Factors: NoneBMI: 34.0Medications: Atorvastatin, clopidogrel, metoprolol STRESS PROTOCOL:Pharmacologic stress was achieved with a 10-second intravenous infusion of regadenoson 0.4 mg. The radiopharmaceutical was administered 30 seconds after the start ofthe regadenoson infusion. IMAGING PROTOCOL:Limited low-dose CT imaging was performed for attenuationcorrection. 33.1 mCi of Rb-82 chloride was injected intravenously at rest, and gated PET images wereobtained. Then, 32.9 mCi of Rb-82 chloride was injected intravenously at peak stress, and gated PET i mages were obtained. Image quality is good. REST FINDINGS:HR: 64/minBP: 119/77 mmHgPrelim. EKG: Normal sinus rhythm.Perfusion: Normal.Basal to apical anterior defect is likely artifactual. Mild apical perfusion defect. Wall Motion: Normal (LVEF 65%).LV Volume: Normal.RV Volume: Normal. STRESS FINDINGS:HR: 71/min (44% of MPHR)BP: 106/72 mmHgPrelim. EKG: No ischemic changes.Symptoms: None (treatment not required).Perfusion: Mild apical perfusion defect. Basal to apical anterior defect is likely artifactual.Wall Motion: Normal (LVEF 68%).LV Volume: Not significantly changed from rest. IMPRESSION:1. Suspicious study.2. Abnormal myocardial perfusion. Mild, partially reversible apical perfusion defect3.Normal resting LVEF, which does not deteriorate with pharmacologic stress.4. Normal extracardiac tracer distribution.5. There is no prior study for comparison. Signed: Kinza Gomez MDReport Verified Date/Time: 07/03/2020 14:30:46 Reading Location: [address] [facility] Reading Room Electronica lly signed by: KINZA GOMEZ MD on 07/03/2020 02:30 [facility] w/ doppler (cw/pw/color)2020-07-03 13:55:41 Ejection FractionSLEH ECHO HEARTLAB MKCKESSON CPACSInterface, External Ris In - 07/03/2020 1:55 PM CDTTransthoracic Echocardiography Report (TTE) Demographics Patient Name [place] AMIN Dateof Study 07/03/2020 Gender Male Visit Number [id number] Race Unknown Room Number 6101 Number Date of 1960 Referring Physician Brittnee Juan MD Age 60 year(s) Footwear Sales Leader Wallace Hoskins Interpreting Ajith Gamboa MD Physician Procedure Type of Study TTE procedure:2DECHO W DOPPLER(CW/PW/COLOR) (STAT) Indications:Acute Chest Pain/ Suspected CAD.Clinical HistoryHGB 12.6HCT 37.5 %HLDHTNTBICORONARY ANGIOPLASTY 2012Contrast Medium: Definity.Height: 69 inches Weight: 104.33 kg (230 lbs) BSA: 2.19 m^2 BMI: 33.96kg/m^2HR:74 bpm BP: 160/79 mmHg Summary 1. The [...] hypertrophy. All of the LV segments contract normally. LVEF by Leung's method of disk assessment [...] of Valsalva diameter) is normal . Proximal ascending aorta size is normal . Pericardium No significantpericardial effusion is visualized. IVC/SVC/PA/PV/Pleural The estimated RA pressure by IVC dynamics 0-5mmHg . Chambers/Structures Left Atrium LA Volume: 49.96 ml LA Area: 19.73 cm^2 LA Vol. Index: 23 ml/m^2 Left Ventricle LVIDd: 5.74 cm LVEDV:13 9.39 ml LV Septum Diastolic: 0.95 cm LV Septum Systolic: 1.16 cm LV PW Diastolic: 1.07 cm LV PW Systolic: 1.23 cm LVEDV Leung's:148.77 ml LVEDVI: 68 ml/m^2 LVESV Leung's:55.29ml LVESVI: 25 ml/m^2 LVEF Leung's: 62.8 % LVOT Diameter: 2.22 cm Right Atrium RA Area: 13.85 cm^2 Right Ventricle RV Diast Dim.: 3.54 cm TAPSE: 2.79 cm Aorta Ao Root S of Denise.: 3.56 cm Ascending Aorta: 3.53 cm Doppler/Quantitative Measurements Mitral Valve MV Peak E-Wave: 0.78 m/s MVPeak A-Wave: 0.88 m/s E/A Ratio: 0.89 Peak Gradient: 2.42 mmHg Deceleration Time: 277.2msec MV Howard. Peak: Tissue Doppler E' Septal [...] cm LVOT VTI: 31.14 cm LVOT Area: 3.87cm^2 LVOT SV:120.47 ml LVOT CO: 8.92 l/min LVOT CI: 4.07 l/min/m^2[facility] DiegoMAGN[facility]2020-09-29 12:47:00 Test Item Value Reference Range Interpretation Comments MAGNESIUM (BEAKER) 2.4 mg/dL 1.6-2.6 Specimen slightly (test code = 627) hemolyzed Electric Meter Repairer ID - [id number] 12:47:00 Test Item Value Reference Range Interpretation Comments POTASSIUM (BEAKER) 3.8 meq/L 3.5-5.1 Specimen slightly (test code = 379) hemolyzed Electric Meter Repairer ID - PATRICKIANGTROPONIN [id number] 10:37:00 Test Item Value Reference Range Interpretation Comments TROPONIN I (BEAKER) (test code = 1.50 ng/mL 0.00-0.03 397) Troponin I (TnI) levels must be interpreted in the context of the presenting symptoms and the clinical findings. Elevated TnI levels indicate myocardial damage, but are not specific for ischemic heart disease. Elevated TnI levels are seen in patients with other cardiac conditions (including myocarditis and congestive heart failure), and slight TnI elevations occur in patients with other conditions, including sepsis, renal failure, acidosis, acute neurological disease, and persistent tachyarrhythmia.Electric Meter Repairer ID - [id number] 10:25:00 Test Item Value Reference Range Interpretation Comments PARTIAL THROMBOPLASTIN TIME 45.7 seconds 22.5-36.0 H (MARIO ALBERTO) (test code = 760) SARS-COV2/RT-PCR ([facility])2020-07-03 08:54:00 Test Item Value Reference Range Interpretation Comments SARS-COV2/RT-PCR (test code Negative Not Detected, Negative, = [id number]) See external report for linked test SARS-COV-[address] [facility] (test code = 6337476) Negative results do not preclude SARS-CoV-2 infection and should not be used as the sole basis for patient management decisions. Negative results must be combined with clinical observations, patient history, and epidemiological information. A false negative result may occur if a specimen is improperly collected, transported or handled.The limit of detection for this assay is 250 copies/mL.This SARS CoV-2 test is a rapid, real-time RT-PCR test intended for the qualitative detection of nucleic acid from SARS-CoV-2 in a nasopharyngeal swab specimen collected from individuals suspected of COVID-19 by their healthcare provider.This test has not been Food and Drug [...] is revoked under Section 564(g) of the Act.Fact Sheet for Healthcare Pro viders:https://www.[employer]/Documents/Xpert%20Xpress%20SARS%20CoV-2/Fact%20Sh eets/3023802%12IVTT-SUC-5%20HEALTHCARE%20PROVIDERS%20FACT%20SHEET.pdfFact Sheet for Healthcare Patients:https://www.[employer]/Documents/Xpert%20Xpress%20SARS%20CoV-2/Fact%20Sheets/3023801%20SARS-COV -2%20PATIENT%20FACT%20SHEET.pdfPerforming Laboratory:[facility] [place], [place] [address]XTBBJYBL [id number] 04:16:00 Test Item Value Reference Range Interpretation Comments TROPONIN I (BEAKER) (test code = 1.51 ng/mL 0.00-0.03 HH 397) Troponin I (TnI) levels must be interpreted in the context of the presenting symptoms and the clinical findings. Elevated TnI levels indicate myocardial damage, but are not specific for ischemic heart disease. Elevated TnI levels are seen in patients with other cardiac conditions (including myocarditis and congestive heart failure), and slight TnI elevations occur in patients with other conditions, including sepsis, renal failure, acidosis, acute neurological disease, and persistent tachyarrhythmia.Electric Meter Repairer ID - [id number] 04:07:00 Test Item Value Reference Range Interpretation Comments MAGNESIUM (BEAKER) (test code = 1.9 mg/dL 1.6-2.6 627) Electric Meter Repairer ID - EDASIBASIC METABOLIC [id number] 04:07:00 Test Item Value Reference Range Interpretation Comments SODIUM (BEAKER) 138 meq/L 136-145 (test code = 381) POTASSIUM (BEAKER) 3.6 meq/L 3.5-5.1 (test code = 379) CHLORIDE (BEAKER) 103 meq/L 98-107 (test code = 382) CO2 (BEAKER) (test 25 meq/L 22-29 code = 355) BLOOD UREA NITROGEN 16 mg/dL 7-21 (BEAKER) (test code = 354) CREATININE (BEAKER) 1.00 mg/dL 0.57-1.25 (test code = 358) GLUCOSE RANDOM 106 mg/dL 70-105 H (BEAKER) (test code = 652) CALCIUM (BEAKER) 8.7 mg/dL 8.4-10.2 (test code = 697) EGFR (BEAKER) (test 76 mL/min/1.73 ESTIMA ROSA ISELA GFR IS code = 1092) sq m NOT ACCURATE CREATININE CLEARANCE IN PREDICTING GLOMERULAR FILTRATION RATE . ESTIMATED GFR I S NOT APPLICABLE FOR DIALYSIS PATIEN TS. Electric Meter Repairer ID - EDASILactic acid, [id number] 04:00:00 Test Item Value Reference Range Interpretation Comments Lactate, Venous (test code 1.93 mmol/L 0.5-2.2 = 2872) SHERON (test code = SHERON) Electric Meter Repairer ID - EDASI Lab Interpretation (test Normal code = 14383-3) [facility] [id number] 04:00:00 Test Item Value Reference Range Interpretation Comments LACTATE BLOOD VENOUS (2) (BEAKER) 1.93 mmol/L 0.50-2.20 (test code = 2872) Electric Meter Repairer ID - EDASIBlood gas, [id number] 03:56:00 Test Item Value Reference Range Interpretation Comments pH, Steve (test code = 2746-6) 7.43 7.32-7.42 H pCO2, Steve (test code = 755) 39 41- 51 mmHg L pO2, Steve (test code = 2705-2) 64 25- 40 mmHg H O2 Sat, Steve (test code = 2711-0) 93.1 % 40-70 H HCO3, Steve (test code = 84443-6) 25 mmol/L 21-29 Base Excess, Steve (test code = 0.9 mmol/L -2-3 1927-3) Patient Temperature (test code = 37.0 C 8310-5) FIO2 (test code = 1819) 21 % Lab Interpretation (test code = Abnormal 16845-7) [facility] Hospital[facility], [id number] 03:56:00 Test Item Value Reference Range Interpretation Comments PH VENOUS (BEAKER) (test code = 7.43 7.32-7.42 H 701) PCO2 VENOUS (BEAKER) (test code = 39 mmHg 41-51 L 755) PO2 VENOUS (BEAKER) (test code = 64 mmHg 25-40 H 702) O2 SATURATION VENOUS (BEAKER) 93.1 % 40.0-70.0 H (test code = 703) HCO3 VENOUS (BEAKER) (test code = 25 mmol/L 21-29 705) BASE EXCESS VENOUS (BEAKER) (test 0.9 mmol/L -2.0-3.0 code = 704) PATIENT TEMPERATURE (BEAKER) (test 37.0 C code = 1818) FIO2 (BEAKER) (test code = 1819) 21.0 % [id number] 03:52:00 Test Item Value Reference Range Interpretation Comments PARTIAL THROMBOPLASTIN TIME 39.8 seconds 22.5-36.0 H (BEAKER) (test code = 760) CBC W/PLT COUNT & AUTO [id number] 03:42:00 Test Item Value Reference Range Interpretation Comments WHITE BLOOD CELL COUNT (BEAKER) 6.6 K/ L 3.5-10.5 (test code = 775) RED BLOOD CELL COUNT (BEAKER) 4.29 M/ L 4.63-6.08 L (test code = 761) HEMOGLOBIN (BEAKER) (test code = 12.6 GM/DL 13.7-17.5 L 410) HEMATOCRIT (BEAKER) (test code = 37.5 % 40.1-51.0 L 411) MEAN CORPUSCULAR VOLUME (BEAKER) 87.4 fL 79.0-92.2 (test code = 753) MEAN CORPUSCULAR HEMOGLOBIN 29.4 pg 25.7-32.2 (BEAKER) (test code = 751) MEAN CORPUSCULAR HEMOGLOBIN CONC 33.6 GM/DL 32.3-36.5 (BEAKER) (test code = 752) RED CELL DISTRIBUTION WIDTH 14.8 % 11.6-14.4 H (BEAKER) (test code = 412) PLATELET COUNT (BEAKER) (test 193 K/CU MM 150-450 code = 756) MEAN PLATELET VOLUME (BEAKER) 10.4 fL 9.4-12.4 (test code = 754) NUCLEATED RED BLOOD CELLS 0 /100 WBC 0-0 (BEAKER) (test code = 413) NEUTROPHILS RELATIVE PERCENT 69 % (BEAKER) (test code = 429) LYMPHOCYTES RELATIVE PERCENT 20 % (BEAKER) (test code = 430) MONOCYTES RELATIVE PERCENT 10 % (BEAKER) (test code = 431) EOSINOPHILS RELATIVE PERCENT 1 % (BEAKER) (test code = 432) BASOPHILS RELATIVE PERCENT 1 % (BEAKER) (test code = 437) NEUTROPHILS ABSOLUTE COUNT 4.54 K/ L 1.78-5.38 (BEAKER) (test code = 670) LYMPHOCYTES ABSOLUTE COUNT 1.28 K/ L 1.32-3.57 L (BEAKER) (test code = 414) MONOCYTES ABSOLUTE COUNT (BEAKER) 0.65 K/ L 0.30-0.82 (test code = 415) EOSINOPHILS ABSOLUTE COUNT 0.03 K/ L 0.04-0.54 L (BEAKER) (test code = 416) BASOPHILS ABSOLUTE COUNT (BEAKER) 0.03 K/ L 0.01-0.08 (test code = 417) IMMATURE GRANULOCYTES-RELATIVE 0 % 0-1 PERCENT (BEAKER) (test code = 2801) RAD, CHEST, 1 VIEW, NON [id number] 23:05:00Reason for exam:- >dyspneaShould this be performed at the bedside?->YesFINAL REPORT Chest one view. Clinical history: dyspnea Comparison: None. Tech nique: A single frontal view of the chest was obtained. Findings: The cardiac silhouette is enlarged which may in part be due to AP technique. There is mild blunting of the left lateral costophrenic angle which may represent a small pleural effusion and/or pleural thickening. There is discoid atelectasis in the left lung base. There is no pleural effusion, pneumothorax or pulmonary edema. There are degenerative changes of the visualized spine. There are multiple healed left-sided rib fractures. Impression:Mild blunting of the left lateral costophrenic angle, which may represent a small pleural effusion and/or pleural thickeningDiscoid atelectasis in the left lung base. Signed: Joyce Ragland MDReport Verified Date/Time: 07/02/2020 23:05:36 LACTIC ACID, [id number] 22:59:00 Test Item Value Reference Range Interpretation Comments LACTATE BLOOD VENOUS 3.11 mmol/L 0.50-2.20 H Specime n slightly (2) (BEAKER) (test hemolyzed code = 2872) Electric Meter Repairer ID - KELECHI [id number] 22:39:00 Test Item Value Reference Range Interpretation Comments MAGNESIUM (BEAKER) (test code = 1.7 mg/dL 1.6-2.6 627) Electric Meter Repairer ID - DBHEMOGLOBIN [id number] 22:14:00 Test Item Value Reference Range Interpretation Comments HEMOGLOBIN A1C (BEAKER) (test code = 5.8 % 4.3-6.1 368) LACTIC ACID, [id number] 22:00:00 Test Item Value Reference Range Interpretation Comments LACTATE BLOOD VENOUS 3.07 mmol/L 0.50-2.20 H Specime n slightly (2) (BEAKER) (test hemolyzed code = 2872) Electric Meter Repairer ID - DBHepatic function [id number] 21:57:00 Test Item Value Reference Range Interpretation Comments Protein, Total (test code 7.8 6.0- 8.3 gm/dL = 2885-2) Albumin (test code = 4.5 g/dL 3.5-5 46343-8) Total Bilirubin (test 0.5 mg/dL 0.2-1.2 code = 1975-2) Bilirubin, Direct (test 0.3 mg/dL 0.1-0.5 code = 1967-7) Alkaline Phosphatase 100 U/L 40-150 (test code = 6768-6) AST (test code = 1920-8) 31 U/L 5-34 ALT (test code = 1742-6) 40 U/L 6-55 SHERON (test code = SHERON) Electric Meter Repairer ID - JAEL Corykiera ID - DB Lab Interpretation (test Normal code = 76870-4) [facility] HospitalLIPID [id number] 21:57:00 Test Item Value Reference Range Interpretation Comments TRIGLYCERIDES (BEAKER) (test code = 130 mg/dL 540) CHOLESTEROL (BEAKER) (test code = 210 mg/dL 631) HDL CHOLESTEROL (BEAKER) (test code 60 mg/dL = 976) LDL CHOLESTEROL CALCULATED (BEAKER) 124 mg/dL (test code = 633) Triglyceride Reference Range: Low Risk <150 Borderline 150-199 High Risk 200-499 Very High Risk >=500Cholesterol Reference Range: Low Risk <200 Borderline 200-239 High Risk >240HDL Cholesterol Reference Range: Low Risk >=60 High Risk <40LDL Cholesterol Reference Range: Optimal <100 Near Optimal 100-129 Borderline 130-159 High 160-189 Very High >=190 Electric Meter Repairer ID - DBHEPATIC FUNCTION [id number] 21:57:00 Test Item Value Reference Range Interpretation Comments TOTAL PROTEIN (BEAKER) (test code = 7.8 gm/dL 6.0-8.3 770) ALBUMIN (BEAKER) (test code = 1145) 4.5 g/dL 3.5-5.0 BILIRUBIN TOTAL (BEAKER) (test code 0.5 mg/dL 0.2-1.2 = 377) BILIRUBIN DIRECT (BEAKER) (test 0.3 mg/dL 0.1-0.5 code = 706) ALKALINE PHOSPHATASE (BEAKER) (test 100 U/L 40-150 code = 346) AST (SGOT) (BEAKER) (test code = 31 U/L 5-34 353) ALT (SGPT) (BEAKER) (test code = 40 U/L 6-55 347) Electric Meter Repairer ID - JAEL COperator ID - [id number] 21:49:00 Test Item Value Reference Range Interpretation Comments TSH (test code = 1.364 0.350- 4.940 uIU/mL 74198-4) SHERON (test code = SHERON) Electric Meter Repairer ID - JAEL C Lab Interpretation (test Normal code = 91513-6) [facility]SH[facility] 21:49:00 Test Item Value Reference Range Interpretation Comments THYROID STIMULATING HORMONE 1.364 uIU/mL 0.350-4.940 ([facility]) (test code = 772) Electric Meter Repairer ID - JAEL CTROPONIN [id number] 21:41:00 Test Item Value Reference Range Interpretation Comments TROPONIN I (AKER) (test code = 0.82 ng/mL 0.00-0.03 HH 397) Troponin I (TnI) levels must be interpreted in the context of the presenting symptoms and the clinical findings. Elevated TnI levels indicate myocardial damage, but are not specific for ischemic heart disease. Elevated TnI levels are seen in patients with other cardiac conditions (including myocarditis and congestive heart failure), and slight TnI elevations occur in patients with other conditions, including sepsis, renal failure, acidosis, acute neurological disease, and persistent tachyarrhythmia.Electric Meter Repairer ID - JAEL CB-type Natriuretic Factor (BNP)2020-07-02 21:36:00 Test Item Value Reference Range Interpretation Comments BNP (test code = 93189-4) 68 pg/mL 0-100 SHERON (test code = SHERON) Electric Meter Repairer ID - JAEL C Lab Interpretation (test Normal code = 55999-5) [facility]B-[facility] NATRIURETIC FACTOR (BNP)2020-07-02 21:36:00 Test Item Value Reference Range Interpretation Comments B-TYPE NATRIURETIC PEPTIDE (AKER) 68 pg/mL 0-100 (test code = 700) Electric Meter Repairer ID - JAEL CBASIC METABOLIC [id number] 21:26:00 Test Item Value Reference Range Interpretation Comments SODIUM (BEAKER) 137 meq/L 136-145 (test code = 381) POTASSIUM (BEAKER) 3.6 meq/L 3.5-5.1 (test code = 379) CHLORIDE (BEAKER) 100 meq/L 98-107 (test code = 382) CO2 (BEAKER) (test 24 meq/L 22-29 code = 355) BLOOD UREA NITROGEN 18 mg/dL 7-21 (BEAKER) (test code = 354) CREATININE (BEAKER) 1.09 mg/dL 0.57-1.25 (test code = 358) GLUCOSE RANDOM 136 mg/dL 70-105 H (BEAKER) (test code = 652) CALCIUM (BEAKER) 9.2 mg/dL 8.4-10.2 (test code = 697) EGFR (BEAKER) (test 69 mL/min/1.73 ESTIMA ROSA ISELA GFR IS code = 1092) sq m NOT ACCURATE CREATININE CLEARANCE IN PREDICTING GLOMERULAR FILTRATION RATE . ESTIMATED GFR I S NOT APPLICABLE FOR DIALYSIS PATIEN TS. Electric Meter Repairer ID - OCT CPT/[id number] 21:25:00 Test Item Value Reference Range Interpretation Comments PROTIME (BEAKER) (test code = 14.3 seconds 11.9-14.2 H 759) INR (BEAKER) (test code = 370) 1.14 <=5.90 PARTIAL THROMBOPLASTIN TIME 109.6 seconds 22.5-36.0 H (BEAKER) (test code = 760) Effective 03/02/2019: PT Reference Range ChangeNew: 11.9-14.2 Previous: 11.7- 14.7RECOMMENDED COUMADIN/WARFARIN INR THERAPY RANGESSTANDARD DOSE: 2.0-3.0 Includes: PROPHYLAXIS for venous thrombosis, systemic embolization; TREATMENT for venous thrombosis and/or pulmonary embolus.HIGH RISK: Target INR is2.5-3.5 for patients wiht mechanical heart valves.LACTIC ACID, [id number] 21:24:00 Test Item Value Reference Range Interpretation Comments LACTATE BLOOD VENOUS (2) (BEAKER) 3.93 mmol/L 0.50-2.20 H (test code = 2872) Electric Meter Repairer ID - JAEL CPROTHROMBIN TIME/[id number] 21:22:00 Test Item Value Reference Range Interpretation Comments PROTIME (BEAKER) (test code = 14.3 seconds 11.9-14.2 H 759) INR (BEAKER) (test code = 370) 1.14 <=5.90 Effective 03/02/2019: PT Reference Range ChangeNew: 11.9-14.2 Previous: 11.7- 14.7RECOMMENDED COUMADIN/WARFARIN INR THERAPY RANGESSTANDARD DOSE: 2.0-3.0 Includes: PROPHYLAXIS for venous thrombosis, systemic embolization; TREATMENT for venous thrombosis and/or pulmonary embolus.HIGH RISK: Target INR is2.5-3.5 for patients wiht mechanical heart valves.CBC W/PLT COUNT & AUTO [id number] 21:10:00 Test Item Value Reference Range Interpretation Comments WHITE BLOOD CELL COUNT (BEAKER) 8.0 K/ L 3.5-10.5 (test code = 775) RED BLOOD CELL COUNT (BEAKER) 4.72 M/ L 4.63-6.08 (test code = 761) HEMOGLOBIN (BEAKER) (test code = 13.8 GM/DL 13.7-17.5 410) HEMATOCRIT (BEAKER) (test code = 41.2 % 40.1-51.0 411) MEAN CORPUSCULAR VOLUME (BEAKER) 87.3 fL 79.0-92.2 (test code = 753) MEAN CORPUSCULAR HEMOGLOBIN 29.2 pg 25.7-32.2 (BEAKER) (test code = 751) MEAN CORPUSCULAR HEMOGLOBIN CONC 33.5 GM/DL 32.3-36.5 (BEAKER) (test code = 752) RED CELL DISTRIBUTION WIDTH 14.7 % 11.6-14.4 H (BEAKER) (test code = 412) PLATELET COUNT (BEAKER) (test 224 K/CU MM 150-450 code = 756) MEAN PLATELET VOLUME (BEAKER) 10.9 fL 9.4-12.4 (test code = 754) NUCLEATED RED BLOOD CELLS 0 /100 WBC 0-0 (BEAKER) (test code = 413) NEUTROPHILS RELATIVE PERCENT 86 % (BEAKER) (test code = 429) LYMPHOCYTES RELATIVE PERCENT 8 % (BEAKER) (test code = 430) MONOCYTES RELATIVE PERCENT 5 % (BEAKER) (test code = 431) EOSINOPHILS RELATIVE PERCENT 0 % (BEAKER) (test code = 432) BASOPHILS RELATIVE PERCENT 0 % (BEAKER) (test code = 437) NEUTROPHILS ABSOLUTE COUNT 6.83 K/ L 1.78-5.38 H (BEAKER) (test code = 670) LYMPHOCYTES ABSOLUTE COUNT 0.67 K/ L 1.32-3.57 L (BEAKER) (test code = 414) MONOCYTES ABSOLUTE COUNT (BEAKER) 0.38 K/ L 0.30-0.82 (test code = 415) EOSINOPHILS ABSOLUTE COUNT 0.00 K/ L 0.04-0.54 L (BEAKER) (test code = 416) BASOPHILS ABSOLUTE COUNT (BEAKER) 0.03 K/ L 0.01-0.08 (test code = 417) IMMATURE GRANULOCYTES-RELATIVE 1 % 0-1 PERCENT (BEAKER) (test code = 2801) PCI-[id number] 00:00:00Ordered by an unspecified provider.[facility] HospitalT[facility] [id number] 13:46:00 Test Item Value Reference Range Interpretation Comments Case Report (test code Surgical Pathology = 104) Report Case: [id number] Authorizing Provider: Ernst Goyal Collected: 10/12/2019 1440 Lis Lee MD Ordering Location: [facility] OR Received: 10/13/2019 0810 Perioperative Services Pathologist: Sabi John MD Specimen: Condyle,Right Knee DIAGNOSIS (test code = q4bteLYkBRJfy0zaMLEizOU 3220) uZzEwMzNcZnRuYmpcdWMxIH ywpnOwZReij4UyJ9BmJhNaD FxhbnNpXGRlZmxhbmcxMDMz XVD9mnCuYJCpWCsyNJTzZEj cKt7kvVWuwIidLqUhHGVhv2 ieomHIohpizKn5qTynS98uc 5F4PtdhG5eiQEZbDMYsU2Ig JD0sOBNhAaf4UJP4DES8GUG kYBImK6OvHK8gZBJekDLuSW c1n5uutUipIWGuAJZ6b5juX LnrpuHbIF1dve1yjXe1f0jg umWzDJRnQAWggZZMBGKfZ9Q prHgxSu3gzHu6xEnsRumzVW F6Ipw0EC2hme16wea2lSjzX DSphzvpEpB9DTqtQTGouywn HNi5VCkrHNAheEhrVUvsDZU ncjcyMFxtYXJndDcyMFxtYX ZsSkcwMHkvQVDzGZA2ZKiyu 062ONB0VZfbw9azs6briFRq Tyv8YEWoZqWxUxiiMMetw4L yb2vtODXzcm8dPIX8eWHcgB pat5V2kBZxZJRjbUCqgsJsJ JDpJcL7AIggOI6xrz40SYWp ZJO0iv9ofFEqoItzjxNabCE iGCesH5HgDAFaa172ZNBjN7 HsQVUvs2Y4anLxNtPvJDVav DW2vgL5QTAfQCe0gQMaylV3 quTptEJxB8yijR20IzNwbJR iH1UpbZ67MmEaoQFhJ6SmuI 32NqFeqUZmV1JdqG95XpGcc CZjTGZngOPoQe5svWJetBMv d9SwyWJhYBgrS89va559YTT nuhMdU3uraUVkrvtyuJNsja elJPyxonM8DIAvXYIiPRcvL GYwXGZzMjBcbGFuZzEwMzNc aGljaFxmMFxkYmNoXGYwXGx lK3dvNdHwAwHyRYOYX66PRL uXFaubYekHPJRrN71DHZteF HLDLAJLRPtQM7KRFgraUNUy ICAgLSBERUdFTkVSQVRJVkU mW6dTGcwIVcZKG96WUDSBQB 8NCYbDPLexQ7LMLS8EDnUVE qgGIDZtzTFtXWXmGC1gM4sX Q9AXZQ8rJ6wVHIMCNOHJRNi QVOYODBDXW0BHIIMyugodGP Q5m1iarDVaPKSejQIiTGGbU FxhbnNpXGRlZmxhbmcxMDMz FVJ2fnEwBPVaBRizNKIkROr pOq9lxIIiuPfuPxUcEBKpv6 wohaEYwsybbPs1e8gaPUFqV pJ0cTGaAZqjF4jzkhWkrVTh ANVsIQh6bN50IGVisK7pfOU fMDbdmkNkTfB9UJpjJERoGo F7GSUrvKIaXPNaZ5ubBNBmN AcvROWcBTyjoAOjJPS0zAkm m4F5eVJnrAQycIchXoHkOcW zZoOWs5BiSGi4pRfcC4IxPW KgFvY7cSIqMYUfKDdxRTFvL OMjezL5oZ29SWfdnyV0gJMt k8Zox44kw549yL1fiGPuHKE 1XLRoENJgyQEeCXNvSNF8HR XxqUEcS9kmEWAxZJ9auoccP AmyOOzwILUqaOR8TPWhmXAw G1JaSPQoIEgzFSGrlyu2AoO nRm9muLBtoPeaWOfmz4rbo8 greOVmBpr0WJPgHlSsHdotF Runr0Swh7wlKPCmek0fTZN5 eMPsgCzap9D4dBXgXSKueML cJWEfON9wtCQvYDPdbG8axf xjXHBnYnJkcmhlYWRccGdic eCwKv9ffZefOED0FJmjO0ur jV1cQwX1QTjjY8nchT5pLFi 2CFfxFBClvND5mjC7HQAjvU CyW0IimF7yOAIjJR2twmg7s 1mzBAK2TXkeWDUcRlN9kpN3 ESOjzJYoURLpwEmxPPokh00 8RUU1GbWrDZGsh7YfH6KcbC dnA58ngRdfW33cPQXdmXoyu I5rhGuwnU8eQrWgMyLbXVeb mWxsEA6sMSRaZ2uegFJzGYJ bDHJzB5gtNbKznA6flFgpRD kokgAcVNGoFlt0KVIobFXkK SGoLkm6WUSeQBHeI03sadjx OSE7jZ0am6gso9HaZQtgVSW 8XHPzb25nRPbntxY6NUsgCr 1sYINoANE6JEhjYNT2qV== CPT Code(s) (test code m0gxdFMwJTZpcXCpAhQdEQF = 3357) oIHUav2agGJRecYRaQlPxKw NcZnRuYmpcdWMxXGRlZmYwe 6ebz467fIAch2liIMRlPpV9 oAVcGNCvlETeW287k3tex7t asrPaiKG4NHUuTXG7SNfrgj PiucH0AWuvdROrFkW2VJqle nRmEWsbsmSbctPvJtm6KEEd P168ZNW1hQyrr1nzJBG9YGL yWQJjGoOaKo9zjEJeV915JY WvTSOZBDHssFh0OAKaebJcn kNrtIALp312K134u9tbXZPm zhApfQyMpqeql0csO835HWX hcGVydzEyMjQwXHBhcGVyaD M8CIZoON8ufhytDyOkMI5mi bwsOzOkQV8hgty3CoQlBT0n cmdiNzIwXGhlYWRlcnkwXGZ bk7PwwzklEN3rT1Pfr6Q9kJ 9maXRcZGVmdGFiNzIwXGZvc m3pkACuVMdgz1GyLEA2xdL9 qMEndSCwMOErEK67Lpwrf7T mDuqlROF4QRQoehHci8Qaf9 ehWuCjdfPzQ8luX9OdKBPxH ITtNLJzLyQhjbNda1Rhv3Iy cMDyhXm3f6ubNGQfCUCciNs sd4xcYYE1SNTiI7F4oNQbn7 jxGMweHXTbaHB8uisgKZdvT AJxvoR7idqpUOwiOXAatKO2 saabDVhuXKOiSoT8xvtlGBl aEIVuFSY6NLgpd144OSK2QM xzYmtwYWdlXHBnbmNvbnRcc GduZGVjXHBsYWluXHBsYWlu XGYwXGZzMjRccWxccGxhaW5 zOyGiErYuZRskDO8jCFPjR1 tbvEWyUIViUQZhH0scNxOsu E3mnUlzXAyocgXpJTh0KcS1 JFH2DQVsVBgsDAC8 CLINICAL HISTORY (test a3gbiVEcBYQdvILqVnBbSJW code = 3356) pUNQru3zeJFAulLQzAdLmBf NcZnRuYmpcdWMxXGRlZmYwe 7cad044oLLei1bkZEQqOtF8 wXIaQJSbzAHuD085NGViTVr wz4lcv1AhVQAlbKSki5A7CH WDtldabKh1iQqiX66gs2X9F nrjN1dzGJGcOBquBFOnUTla nQKzZZR6ZSMcJOT3QThdovH ijjT0MDyltGMdXjA8SIr5f7 sdqMjzSLLdNJN9c0tgTDytc vBtZK2usr9xqMp6x8hnueJp EXLnVQCnzHJGMGEaM6ErtHl wUb4xdEa3cGysDnllSNL9Jk g0QQ2rmo51yhi6jAlpFKFza rooExX3HXqrYJBwkkegTNm3 MFxtYXJnbDcyMFxtYXJncjc yMFxtYXJndDcyMFxtYXJnYj osIQonFEPlZMM9ASoxv004E BO6ZOica0lfr6jilJTyYqr7 NPXaQoFiEfdqKAxxf0Asz3p xLCTnye5jEBD8qAYiaAnqc5 L9hNAjQFReoDCdhwWfFOBaB aG2ECoePJ3iaz37NPOrWRD7 kt1mpRSpcTaspmXfqLTiDAv gP2GnNZOnj034HZTjN6YnNE Tep4Q5dyKnErDaACSntJS3c uB7UBBtHJh9jXXdbbT2arIc cROnB6jaaV65QcLtgHOlV0U skA26AwEpgKJiY2DkuN46Yt JrcHEhA2SzpZ94NjQxeRTuI KZskVCfMn4ntPMklSKmi6Ks cHVhMPvaI33kl721VTGkqwG qY1hezEQiwatnwLOslerhKH xmczIwXHFsXHBsYWluXGYwX VRbIkDncRrkfZ2aMnCsZkPz PKYDvkBrdBFdeMDeoe5vyDQ 6KIXbaLllqB2bRkSoPeRgEY Iqd7Fis8UllCxywDUoh3bnz GFpblxmMFxmczIwICBvciBy kChjuHCygrFgHST7haLrYRW rDvuoZUVcqWnfcJ3fQoWlEv DlLEZbk0Swd4NbvGdlcRSpz 9mylSDynqofKPkgbjHiBYI8 eXBlXHBhcn0= SPECIMEN SOURCE (test q1iwdCXmBIUfpZCcFmGzKKV code = 3377) tEKNqc4xpQRGztUNrNnYhWt NcZnRuYmpcdWMxXGRlZmYwe 1lja023vJWkn6tpCQQzCyA3 mIXvKJIigUYuA591a6ams8w oztGnfMW7WKNfYRR0IDmpud TnclR6WCmbzPPfDgR5TMehs zGwFEatlpAszuGyHjl6AISv V274RRN4rHcgq1qwFOP4ZWC gNWVnLiIyGz6vzGFnA743SE PjKHQUGHCjyVn4MNYlzpVte tAexTQRk592Y581s3dmDGIb xgLltJrYbuafx6jtO222FTP hcGVydzEyMjQwXHBhcGVyaD M2EHVwLW6zqaesMmJfGC7ez ereOtEaFB1esog3ItPuNV0q cmdiNzIwXGhlYWRlcnkwXGZ jk0SjrpksYT2vQ8Nhq1I1eI 9maXRcZGVmdGFiNzIwXGZvc r4nyCTdHYenk0QlFIB2bdO4 fDFnbZLfMMOfIU25Ftiwu4X xViyvPWZ5KVJyxqGzp2Hmq9 zcMoQdiqQvE3kyD3ToMPUcV DPjILXvOnVrqbSyn5Tyb2Rw uAEtdTq4t7ttFWCqDGDnxUm pp4peEHJ9YNIxV6A9xVSyy0 xgXDfrHWSqmMV1gkdaFIwbK MQdbkI5qqukCVvuFDHomFL8 twhoFAedHVQlDqJ0xqkuYJp vGTFkVXJ4KVnan332AWT8JE xzYmtwYWdlXHBnbmNvbnRcc GduZGVjXHBsYWluXHBsYWlu XGYwXGZzMjRccWxccGxhaW5 dLoFqZsNlJCbtGK1uARUkP8 gjuTAwFMWvSKSgH1dpNaPmw X7obRxhZYbjkaTvAJBoozM5 sIBosrjekXJet17eZRcpQGQ 9 GROSS DESCRIPTION q1icuTExZJKdaYImJuMcDWV (test code = 3366) fZMWhp6hhPFUofAYrSnKoGv NcZnRuYmpcdWMxXGRlZmYwe 5ibx084cLSgp3qdWQBgLyR2 eNMhSVIjzMTrX035YULjITk ti2aej8UbQEFneIPdy3A0NF LEalbztKg6iOjwK44cd7W9W qfrP6yjFOErRWnnBXPtWXtz mHGeQEQ2DCIxCBB6OHmxrmL nbkU1RCgthRYpGrM0VIt3o7 gzsDcbMUWgVUK1f4mzZTpxe tVpIQ9yuw8jvKi3h6aayzUb COIbNRSqqBFEDCQzG3LrsKc wSl1mtHq7kEbbQwioAAH5Wm k3HA8cme75anf6oQnrAMAav hnoGdY0ZXlzGRAeuodwJVv5 MFxtYXJnbDcyMFxtYXJncjc yMFxtYXJndDcyMFxtYXJnYj boIAusOZYhDNO9DPflk605C GA3LVrff0jyu9ucnIErOeu9 YPLsJoXuWxjgCWfsf1Kfx0d lZCRmfq3hKIF2oBRutGxib4 X9hKEsXMDueWQuwtHeWYEwP xP0JYzfIK6nui58HTIwXSL6 gc4lnRJaeKxdtwYbjPIqNUb hA4LaKBIwm963GXJaE2HnXE Ajj8V0hwBuQyPvRFGhyPA7q sY6NMPaNMa0qJSeqyH3sqFp aVWyM1uctT94YoGsxZNmG6H dwV76XjCfwQEjC1ItxE16Xl MqaJGsR8KpcK65AkTvdYFeE SRipFScMl3kpCFqrUJie6Cj vENiEKseE74fz050HYJfzbP aF7bilAZlebvkrRHzhcbuEM xmczIwXHFsXHBsYWluXGYwX NZsUzGqfAdooZ1tHrDoLvEu FSJYUVBsxXCjHQWktzSyb3Y tYWxpbiBsYWJlbGVkIHdpdG ggdGhlIHBhdGllbnQncyBuY V1xTHAcT8Vev0Gbx68yaoLe QkUjRCJdSAWaF30hLIifCCq esgvqlHLyb80gKSRsPHKuRP 66sQZhtUnuUUItuv72ZVugn 4ghWFLoglQnIK1sDAJbLpUq xTpdn6MlKWUoQPsjLD91izQ 0oIB2FTLvjyudCZRns38zGl 4wIHRvIDcuOCBjbSBpbiBnc eSczPYceOTxzV6dyiEfz57c LTKkWVEjskVuL8UfMCWix4Z cLjVuTNJcnnHklZ8kgNjszM 4nSivlWKj3UOqpNV41yWWpP GJbp0IucWi2OVJlpEGhDG3u kF21yxQbgfXhGXfsmYhgnIC gbXVsdGlwbGUgcGVyaXBoZX MjlFBlx9Zjo9CufFEwyaE4c IZ7SN7jAAB4vyKkaJTlfV1x Sn7sTIPkNNomINypHKD3BUU 2BKGziKAne6enqe1yWQxeWC F7fHTmfLBjXABmQZcqAQIuv s62IHkqw0sqIVHrBKTxU7Qf RUIcDWQvryCfWduuaWU3tTM dPPTefoAdN3MwSLXmosQisH Qtj1UxhZ9tJLAjWOUgDQQzN qFukHX4dRwvsu7cQsHiomTu AG42DYZtsmNhj4SnhAqvpcA kNOOxMBJ4Xl2kwULrSLRmkm MATN0NYkZmh8aim1whhmpkA AKqOYfzoGZjD4T7tA6rDdQr UEEvcGxccGFyICBccGFyfQ= = MICROSCOPIC w2zarTWrFNTrvDWgSuKgJMP DESCRIPTION (test code rBXVlr8nvIBVewCBqEtJaDs = 3371) NcZnRuYmpcdWMxXGRlZmYwe 9sls948zVJvr8cjRGAfXyU6 kEMlCJUmrXUqR360o1wjw7t cxdUoeMA9EACtHYL0WTsnkn AwooX3HPnjiQIqIaL4FAvtc yAdAQqjvdTwfeKbXlr7YPBp N100VQY1pCtiv7pjQIJ9NZZ dRXKjPeVnFg0rpMYwS128ZG SiUSQBBNYmtXk2AINgzfLig yLwzQGFw015X597x8ivOKSz beDyhPqYbzkec0mwU672XQC hcGVydzEyMjQwXHBhcGVyaD A6LOWbKQ8xxnqdYcGyLU5ut mmhElAuPL4spca0KeBpUH9c cmdiNzIwXGhlYWRlcnkwXGZ do7EijaleBO5mR5Hfl4X9aP 9maXRcZGVmdGFiNzIwXGZvc g9dcLXqIWhjx1LcJBY5buP0 bETntIPdRNYnJD51Iwgtg2R mWvdbYZW1MOGswzPks6Czu2 vuGbXgpqTnC8qeR0RaIUBrK NKiQIMcUyGvmuRsw6Hdb6Zi sTBbpLk2i1qoROKdGQWewCh ta4eyHEP7RHPuD4K0jLUun8 rxBTlpQNQofOM3fijfEXyqR WCqgaZ3owajDShgCWAwnSD0 izijHUgwBIHwExR8zkkgRZe qOGObKYY4LHyde816QUY8IF xzYmtwYWdlXHBnbmNvbnRcc GduZGVjXHBsYWluXHBsYWlu XGYwXGZzMjRccWxccGxhaW5 cFhAeFeShYEumTW7bIQYuG5 cwjFVdYNCuUJTuO9ndXwAis R8ydNyeBDhldpXlWMElwwSk pe9lPE3hsCCixC== [facility] DiegoTISSUE [id number] 13:46:00Surgical Pathology Report Case: [id number] Authorizing Provider: Ernst Goyal Collected: 10/12/2019 1440 Lis Lee MD [facility]ing[facility]: [facility] OR Received: 10/13/2019 0810 Perioperative Services Pathologist: Sabi John MD Specimen: Condy le,Right Knee CONDYLES, RIGHT KNEE, ARTHROPLASTY: - DEGENERATIVE CHANGES CONSISTENT WITH OSTEOARTHRITIS - SYNOVIUM WITH REACTIVE CHANGES Signing Pathologist Direct Phone Line: [phone] signed by Sabi John MD on 10/19/2019 at 1:46 [id number], [id number] diagnosis: osteoarthritis or right knee, unspecified osteoarthritis [...] bone measuring up to 0.2 cm thick. Barrer And Tacker sections are submitted as A1-A3 following decalcification. PA/pl Performed.POCT-GLUCOSE [id number] 07:23:00 Test Item Value Reference Range Interpretation Comments POC-GLUCOSE METER 145 mg/dL 70-110 H : TESTED A T [facility] 7200 (BEAKER) (test code [place] E BLDG A, = 1538) [facility] 7703 0: Electric Meter Repairer/Techni norah ID = [id number] for Jennifer Woodruff BASIC METABOLIC [id number] 06:29:00 Test Item Value Reference Range Interpretation [...] 697) EGFR (BEAKER) (test 65 mL/min/1.73 ESTIMA ROSA ISELA GFR IS code = 1092) sq m NOT ACCURATE CREATININE CLEARANCE IN PREDICTING GLOMERULAR FILTRATION RATE . ESTIMATED GFR I S NOT APPLICABLE FOR DIALYSIS PATIEN TS. HEMOGLOBIN AND [id number] 06:16:00 Test Item Value Reference Range Interpretation Comments HEMOGLOBIN (BEAKER) (test code = 12.1 GM/DL 13.7-17.5 L 410) HEMATOCRIT (BEAKER) (test code = 36.7 % 40.1-51.0 L 411) POCT-GLUCOSE [id number] 21:12:00 Test Item Value Reference Range Interpretation Comments POC-GLUCOSE METER 195 mg/dL 70-110 H : TESTED A T [facility] 7200 (BEAKER) (test code TARA Elkins, = 1538) [facility] 7703 0: Electric Meter Repairer/Techni norah ID = [id number] for BETTY HARRIS, INESSA RAD, KNEE, 1 OR 2 VIEWS, [id number] 16:44:00Reason for exam:->s/p r tkaShould this be performed at the bedside?->YesFINAL REPORT COMPARISON: None. FINDINGS: 2 views of the right knee are submitted. Patient is presumably status post recent right knee replacement. There is anatomic alignment of the surgical prosthesis. There is postoperative gas in the surrounding soft tissues . Signed: Satya Huffort Verified Date/Time: 10/12/2019 16:44:57 Reading Location: [facility] Radiology Reading Room XR knee 1 or 2 views [id number] 16:44:00Interface, External Ris In - 10/12/2019 4:47 PM CSTFINAL REPORT COMPARISON: None. FINDINGS: 2 views of the right knee are submitted. Patient is presumably status post recent right knee replacement. There is anatomic alignment of the surgical prosthesis. There is postoperative gas in the surrounding soft tissues . Signed: Satya Huff MDReport Verified Date/Time: 10/12/2019 16:44:57 Reading Location: [facility] [id number] 14:23:00 Test Item Value Reference Range Interpretation Comments ABO Grouping (test code = 2588) O Rh Factor (test code = 2589) POS [facility] DiegoANESTHESIA PERIPHERAL [id number] 13:26:38 Patricia Ortiz MD - 10/12/2019 1:26 [...] Cota MDOther anesthesia staff: Patricia Ortiz MDPrepPrep: chlorhexidine gluconate and isopropyl alcoholProcedures: sterile gloves, surgical mask, surgical hat, sterile technique and prep and sterile drape appliedPeripheral Nerve BlockPatient position: supinePatient monitoring: EKG, HR, BP and GnF8Lnrrvvumjm: rightBlock type: adductor canalInjection technique: cathet erultrasound [...] complications and patient tolerated the procedure wellAdditional NotesDr. Cota present throughout procedureSaint Elizabeth Community HospitalANESTHESIA SPINAL [id number] 13:25:43HaddPatricia dawson MD - 10/12/2019 1:25 PM [...] technique: single-shotlandmark technique and landmark techniqueNeedleNeedle type: pencil- tip Needle gauge: 25 GNeedle Length: 9 cmUsed introducerAssessmentEvents: barbotagepatient tolerated the procedure well and patient had no immediate complicationsAdditional NotesDr. Cota present throughout procedureSaint Elizabeth Community Hospital
[2020-08-12 15:30] LABS: Absolute Lymphocytes (CBC) 2.8 K/uL (0.7-4.9); Basophils % 0.2 % (0-1.3); Hematocrit 41.2 % (39.6-49.0); Lymphocytes % 36.7 % (15.3-44.8); MPV 9.2 fL (7.6-11.3); RBC Red Blood Cell Count 4.53 M/uL (4.33-5.43)
[2020-08-12 15:33] LABS: Protime INR 0.96
[2020-08-12] MEDS ORDERED: ASPIRIN 81 MG CHEWABLE TABLET ONE (15:35)
[2020-08-12] MEDS ORDERED: NA CHLORIDE 0.9% 500 ML ONE (15:35)
[2020-08-12] MEDS ORDERED: HEPARIN 5000 UNIT/ML 1 ML VIAL ONE (15:40)
[2020-08-12] MEDS ORDERED: MORPHINE 4 MG/ML SYR ONE (15:40)
[2020-08-12] MEDS ORDERED: ONDANSETRON 4 MG/2 ML VIAL ONE ×2 (15:40→17:12)
[2020-08-12] MEDS ORDERED: METOPROLOL TARTRATE 5 MG/5 ML INJ IV ONE (15:54)
[2020-08-12] MEDS ORDERED: METOPROLOL TAR 25 MG TAB ONE (15:54)
[2020-08-12 15:58] LABS: ALT/SGPT 26 U/L (12-78); AST/SGOT 21 U/L (15-37); Albumin 4.2 g/dL (3.4-5.0); Alkaline Phosphatase 154 U/L (45-117); BUN Blood Urea Nitrogen 17 mg/dL (7-18); Bicarbonate 23 mmol/L (21-32); Bilirubin Direct < 0.1 mg/dL (0-0.2); Bilirubin Total 0.3 mg/dL (0.2-1.0); Glucose Level 117 mg/dL (74-106); Lipase 139 U/L (73-393); Magnesium 2.1 mg/dL (1.8-2.4); NT PRO-BNP 239 pg/mL (<125); Protein, Total 8.4 g/dL (6.4-8.2); Sodium Level 142 mmol/L (136-145); Troponin (Emerg Dept Use Only) 0.06 ng/mL (0.0-0.045)
--- NOTE | 2020-08-12 16:13 | RAD REPORT ---
EXAM DESCRIPTION: RAD - Chest Single View - 08/12/2020 4:08 pm CLINICAL HISTORY: CHEST PAIN Chest pain. COMPARISON: Chest Pa And Lat (2 Views) dated 05/25/2020; Chest Single View dated 09/21/2019 FINDINGS: Portable technique limits examination quality. Mild interstitial pulmonary edema. The heart is moderately enlarged in size. Sternotomy wires present . Trace pleural effusions. IMPRESSION: Mild CHF.
[2020-08-12] MEDS ORDERED: HYDROMORPHONE HCL 0.5 MG/0.5 ML INJ ONE ×5 (16:14→18:12)
[2020-08-12] MEDS ORDERED: FUROSEMIDE 20 MG/ 2ML VIAL ONE ×2 (16:15→16:44)
--- NOTE | 2020-08-12 16:30 | ER ---
Nurse's Notes [facility] Name: Sergey Emanuel Jr Age: 60 yrs Sex: Male : 1960 Arrival Date: 08/12/2020 Time: 15:14 Bed 16 Private MD: Diagnosis: Chest pain, unspecified;Unspecified combined systolic (congestive) and diastolic (congestive) heart failure;Essential (primary) hypertension;Cardiomegaly Presentation: 08/12 15:16 Chief complaint: Patient states: chest pain X1 hour, feels like previous NC, had triple iw bypass [address] [facility]. Coronavirus screen: At this time, the client does not indicate any symptoms associated with coronavirus-19. Ebola Screen: Patient negative for fever greater than or equal to 101.5 degrees Fahrenheit, and additional compatible Ebola Virus Disease symptoms Patient denies exposure to infectious person. Patient denies travel to an Ebola-affected area in the 21 days before illness onset. No symptoms or risks identified at this time. Initial Sepsis Screen: Does the patient meet any 2 criteria? No. Patient's initial sepsis screen is negative. Does the patient have a suspected source of infection? No. Patient's initial sepsis screen is negative. Risk Assessment: Do you want to hurt yourself or someone else? Patient reports no desire to harm self or others. Onset of symptoms was August 12, 2020. 15:16 Method Of Arrival: Wheelchair iw 15:16 Acuity: MARYA 2 iw Historical: - Allergies: 15:19 No Known Allergies; iw - Home Meds: 15:27 aspirin 81 mg Oral TbEC 1 tab once daily [Active]; carvedilol 12.5 mg oral tab daily iw [Active]; clopidogrel 75 mg oral tab 1 tab once daily [Active]; ferrous sulfate 325 mg (65 mg iron) Oral tab [Active]; folic acid 1 mg Oral tab once daily [Active]; furosemide 40 mg Oral tab 1 tab 2 times per day [Active]; hydrochlorothiazide 25 mg Oral tab 1 tab once daily [Active]; potassium chloride 20 mEq Oral TbER 1 tab 2 times per day [Active]; tamsulosin 0.4 mg oral cp24 1 cap once daily [Active]; atorvastatin 40 mg oral tab 1 tab once daily [Active]; baclofen 20 mg Oral tab 1 tab 3 times per day [Active]; gabapentin 600 mg oral tab twice a day [Active]; pantoprazole 40 mg oral TbEC 1 tab 2 times per day [Active]; amiodarone 200 mg Oral tab 1 tab once daily [Active]; - PMHx: 15:19 Myocardial infarction; iw - PSHx: 15:19 CABG; iw - Immunization history:: Adult Immunizations up to date. - Family history:: not pertinent. - Social history:: Smoking status: Patient/guardian denies using tobacco. Screenin:16 Abuse screen: Denies threats or abuse. Denies injuries from another. Nutritional aj1 screening: No deficits noted. Tuberculosis screening: No symptoms or risk factors identified. 18:05 Fall Risk No fall in past 12 months (0 pts). No secondary diagnosis (0 pts). IV access aj1 (20 points). Ambulatory Aid- None/Bed Rest/Nurse Assist (0 pts). Gait- Normal/Bed Rest/Wheelchair (0 pts) Mental Status- Oriented to own ability (0 pts). Total Hernandes Fall Scale indicates No Risk (0-24 pts). Assessment: 15:15 General: Appears uncomfortable, Behavior is anxious. Pain: Complains of pain in chest aj1 Pain does not radiate. Pain currently is 10 out of 10 on a pain scale. Quality of pain is described as heavy, pressure, sharp. Neuro: Level of Consciousness is awake, alert, obeys commands, Oriented to person, place, time, situation. Cardiovascular: Reports chest pain, diaphoresis, palpitations, shortness of breath, Heart tones S1 S2 present Capillary refill < 3 seconds Rhythm is regular. Respiratory: Reports shortness of breath Airway is patent Respiratory effort is even, Respiratory pattern is regular, symmetrical, tachypnea Breath sounds are clear bilaterally. GI: No signs and/or symptoms were reported involving the gastrointestinal system. : No signs and/or symptoms were reported regarding the genitourinary system. EENT: No signs and/or symptoms were reported regarding the EENT system. Derm: Skin is diaphoretic, Skin is pale. Musculoskeletal: No signs and/or symptoms reported regarding the musculoskeletal system. Circulation, motion, and sensation intact. 15:35 Reassessment: Patient's O2 sat is 87% on room air, patient placed on O2 \T\ 4L per nc. iw 15:45 Reassessment: Patient O2 sat is low on nasal cannula, patient placed on Venturi mask at iw 15L. 15:53 Reassessment: Patient O2 sat remains low on venturi mask, patient also reports that iw morphine has not helped his pain at all. States usually he needs Dilaudid to help. Notified Dr. Harden, order placed for Bi-PAP and RT was paged. 16:08 Reassessment: Patient states that Dilaudid has helped diminish his pain at this time. iw RT is at bedside to place patient on Bi-PAP. 16:15 Reassessment: Patient appears in no apparent distress at this time. Patient and/or aj1 family updated on plan of care and expected duration. Pain level reassessed. Patient is alert, oriented x 3, equal unlabored respirations, skin warm/dry/pink. General: Appears in no apparent distress. comfortable, Behavior is calm, cooperative, appropriate for age. Neuro: Level of Consciousness is awake, alert, obeys commands, Oriented to person, place, time, situation. Cardiovascular: Patient's skin is warm and dry. Respiratory: Airway is patent Respiratory effort is even, unlabored, Respiratory pattern is regular, symmetrical, Derm: Skin is dry, Skin is pale. 16:20 Reassessment: Patient states that his pain has come back and he would like more pain aj1 medication. Notified Dr. Hardne. Order received to repeat EKG first. 16:25 Reassessment: Repeat EKG performed and shown to Dr. Harden, Pain medication order aj1 received . 16:38 Reassessment: Patient states that the Dilaudid did not help at all and he would like aj1 another dose. Notified Dr. Harden. No order received at this time. 16:43 Reassessment: Patient O2 sat is down to 88% on Bi-PAP. Dr Harden notified. RT paged aj1 to adjust Bi-PAP. 16:45 Reassessment: Dr. Harden at bedside to evaluate patient. aj1 16:55 Reassessment: RT at bedside to adjust Bi-PAP. aj1 17:14 Reassessment: Patient reports that he is in pain again and would like more pain aj1 medication. Dr. Harden notified. 17:15 Reassessment: Patient appears in no apparent distress at this time. No changes from aj1 previously documented assessment. Patient and/or family updated on plan of care and expected duration. Pain level reassessed. Patient is alert, oriented x 3, equal unlabored respirations, skin warm/dry/pink. 18:00 Reassessment: Patient states that he would like another dose of Dilaudid before he is aj transferred to [place]. Notified Dr. Harden. Vital Signs: 15:27 BP 171 / 101; Pulse 107; Resp 18 S; Pulse Ox 91% on R/A; Pain 10/10; iw 15:45 BP 172 / 96; Pulse 101; Resp 20; Pulse Ox 88% on 4 lpm NC; iw 15:53 BP 125 / 90; Pulse 90; Resp 28; Pulse Ox 87% on Venturi mask; iw 16:05 BP 145 / 95; Pulse 95; Resp 28; Pulse Ox 87% on Venturi mask; iw 16:13 BP 145 / 92; Pulse 94; Resp 26; Pulse Ox 98% on BiPAP; iw 16:28 Weight 102.06 kg; Height 5 ft. 9 in. (175.26 cm); aj1 17:00 BP 123 / 86; Pulse 99; Resp 22; Pulse Ox 98% on BiPAP; aj1 17:30 BP 127 / 82; Pulse 98; Resp 20; Pulse Ox 97% on BiPAP; aj1 18:00 BP 132 / 98; Pulse 94; Resp 22; Pulse Ox 96% on BiPAP; aj1 16:28 Body Mass Index 33.23 (102.06 kg, 175.26 cm) [facility] ED Course: 15:14 Patient arrived in ED. aj1 15:15 Sue Cota, RN is Primary Nurse. iw 15:15 Suraj Harden MD is Attending Physician. maria de jesus 15:15 Patient has correct armband on for positive identification. Bed in low position. Call [facility] light in reach. environmental monitoring technician on. Pulse ox on. NIBP on. 15:15 Inserted saline lock: 18 gauge in right antecubital area, using aseptic technique. [email or web address] Blood collected. 15:15 Initial lab(s) drawn, by ED staff, sent to lab. EKG done, by ED staff, reviewed by eduardo Harden MD. Patient maintains SpO2 saturation greater than 95% on room air. 15:15 No provider procedures requiring assistance completed. aj1 15:17 Triage completed. iw 15:22 Arm band placed on. iw 15:25 Inserted saline lock: 20 gauge in left wrist, using aseptic technique. jp3 15:30 X-ray(s) taken. jp3 16:07 XRAY Chest (1 view) In Process Unspecified. EDMS 16:10 transfer initiated with Mratina Bishop Rn from the [facility] Transfer. eb 16:24 EKG done, by ED staff, reviewed by Suraj Harden MD. jp3 16:[address] Beaulieu the certified marine mechanic makeup sales consultant for [facility] with Dr. Harden for eb patient transfer consultation. 17:03 administrative approval given by Martina Bishop Rn/ patient has been accepted to [facility] CCU 2 bed 6213/ Dr. Beaulieu has accepted the patient in transfer / report to be called to [phone]. 17:24 Report given to ELIAN Singletary at CCU [facility]. aj1 18:05 Patient admitted, IV remains in place. aj1 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 two ASA door captain.} Route: iw PO; 17:21 Follow up: Response: No adverse reaction aj1 15:31 Drug: morphine 4 mg Route: IVP; Site: right antecubital; iw 17:21 Follow up: Response: No adverse reaction aj1 15:31 Drug: Zofran (Ondansetron) 4 mg Route: IVP; Site: right antecubital; iw 17:21 Follow up: Response: No adverse reaction aj1 15:32 Drug: NS 0.9% 500 ml Route: IV; Rate: bolus; Site: right antecubital; iw 17:22 Follow up: IV Status: Completed infusion; IV Intake: 500ml aj1 15:32 Drug: NS 0.9% 1000 ml Route: IV; Rate: 125 ml/hr; Site: right antecubital; iw 17:22 Follow up: IV Status: Completed infusion; IV Intake: 125ml aj1 15:45 Drug: Lopressor 2.5 mg {Note: BP 172/96 Pulse 101.} Route: IVP; Site: left antecubital; iw 17:20 Follow up: Response: No adverse reaction aj1 15:45 Drug: Lopressor 25 mg {Note: BP 172/96 Pulse 101.} Route: PO; iw 17:20 Follow up: Response: No adverse reaction aj1 16:06 Drug: Lasix 20 mg Route: IVP; Site: left antecubital; iw 17:20 Follow up: Response: No adverse reaction aj1 16:06 Drug: Dilaudid 0.5 mg Route: IVP; Site: left antecubital; iw 17:19 Follow up: Response: No adverse reaction; RASS: Alert and Calm (0) aj1 16:06 Drug: Lasix 20 mg Route: IVP; Site: left antecubital; iw 17:18 Follow up: Response: No adverse reaction aj1 16:30 Drug: Dilaudid 0.5 mg Route: IVP; Site: right antecubital; aj1 17:18 Follow up: Response: No adverse reaction; RASS: Alert and Calm (0) aj1 17:02 Drug: Dilaudid 0.5 mg Route: IVP; Site: right antecubital; aj1 17:18 Follow up: Response: No adverse reaction; RASS: Alert and Calm (0) aj1 17:02 Drug: Zofran (Ondansetron) 4 mg Route: IVP; Site: right antecubital; aj1 17:18 Follow up: Response: No adverse reaction aj1 17:14 Drug: Dilaudid 0.5 mg Route: IVP; Site: right antecubital; aj1 17:17 Follow up: Response: No adverse reaction; RASS: Alert and Calm (0) aj1 17:19 Drug: Lopressor 2.5 mg {Note: BP 134/87 Pulse 81.} Route: IVP; Site: right antecubital; aj1 18:04 Drug: Dilaudid 0.5 mg Route: IVP; Site: right antecubital; aj1 18:26 Follow up: Response: No adverse reaction; RASS: Alert and Calm (0) aj1 Intake: 17:22 IV: 125ml; Total: 125ml. aj1 17:22 IV: 500ml; Total: 625ml. aj1 Outcome: 16:30 ER care complete, transfer ordered by . maria de jesus 18:10 Transferred by helicopter to [facility]. aj1 18:10 Condition: unchanged 18:10 Discharge instructions given to patient, family, Instructed on the need for transfer, Demonstrated understanding of instructions. 18:23 Patient left the ED. hb Signatures: Dispatcher [employer] EDKelsy Gonzales RN RN aj1 Suraj Harden MD MD cha Williams, Irene, RN RN Alexandria Morejon RN RN Dee Covarrubias Jacob jp3 Corrections: (The following items were deleted from the chart) 15:33 15:27 BP 171 / 101; Pulse 107bpm; Resp 18bpm; Spontaneous; Pulse Ox 95% RA; Pain 07/14; iw 16:08 15:45 Lopressor 2.5 mg IVP in left antecubital iw 16:08 15:45 Lopressor 2.5 mg IVP in left antecubital iw 18:33 18:32 Transferred by helicopter to [facility], [place] [id number] 18:33 18:32 Condition: unchanged [place] [address] 18:33 18:32 Discharge instructions given to patient, family, Instructed on the need for aj1 transfer, Demonstrated understanding of instructions, aj1
--- NOTE | 2020-08-12 16:30 | EDPHYS ---
Physician Documentation [facility] Name: Sergey Emanuel Jr Age: 60 yrs Sex: Male : 1960 Arrival Date: 08/12/2020 Time: 15:14 Bed 16 Private MD: ED Physician Suraj Harden HPI: 08/12 16:19 This 60 yrs old Male presents to ER via Wheelchair with complaints of Chest maria de jesus Pain. 16:19 The patient or guardian reports chest pain that is located primarily in the substernal maria de jesus area, anterior chest wall, left. Onset: just prior to arrival, this morning. The pain radiates to the left arm. Associated signs and symptoms: Pertinent positives: dizziness, lightheadedness, shortness of breath. The chest pain is described as crushing, a heaviness. Duration: The patient or guardian reports a single episode, that is still ongoing. Modifying factors: The symptoms are alleviated by nothing. the symptoms are aggravated by nothing. Severity of pain: At its worst the pain was moderate severe in the emergency department the pain is unchanged. The patient has experienced similar episodes in the past, multiple times. Historical: - Allergies: 15:19 No Known Allergies; iw - Home Meds: 15:27 aspirin 81 mg Oral TbEC 1 tab once daily [Active]; carvedilol 12.5 mg oral tab daily iw [Active]; clopidogrel 75 mg oral tab 1 tab once daily [Active]; ferrous sulfate 325 mg (65 mg iron) Oral tab [Active]; folic acid 1 mg Oral tab once daily [Active]; furosemide 40 mg Oral tab 1 tab 2 times per day [Active]; hydrochlorothiazide 25 mg Oral tab 1 tab once daily [Active]; potassium chloride 20 mEq Oral TbER 1 tab 2 times per day [Active]; tamsulosin 0.4 mg oral cp24 1 cap once daily [Active]; atorvastatin 40 mg oral tab 1 tab once daily [Active]; baclofen 20 mg Oral tab 1 tab 3 times per day [Active]; gabapentin 600 mg oral tab twice a day [Active]; pantoprazole 40 mg oral TbEC 1 tab 2 times per day [Active]; amiodarone 200 mg Oral tab 1 tab once daily [Active]; - PMHx: 15:19 Myocardial infarction; iw - PSHx: 15:19 CABG; iw - Immunization history:: Adult Immunizations up to date. - Family history:: not pertinent. - Social history:: Smoking status: Patient/guardian denies using tobacco. ROS: 16:19 Constitutional: Negative for fever, chills, and weight loss, Eyes: Negative for injury, maria de jesus pain, redness, and discharge, ENT: Negative for injury, pain, and discharge, Neck: Negative for injury, pain, and swelling, Respiratory: Negative for shortness of breath, cough, wheezing, and pleuritic chest pain, Abdomen/GI: Negative for abdominal pain, nausea, vomiting, diarrhea, and constipation, Back: Negative for injury and pain, : Negative for injury, bleeding, discharge, and swelling, MS/Extremity: Negative for injury and deformity, Skin: Negative for injury, rash, and discoloration, Neuro: Negative for headache, weakness, numbness, tingling, and seizure. 16:19 Cardiovascular: Positive for chest pain, edema, orthopnea, palpitations. Exam: 16:19 Head/Face: Normocephalic, atraumatic. Eyes: Pupils equal round and reactive to light, maria de jesus extra-ocular motions intact. Lids and lashes normal. Conjunctiva and sclera are non-icteric and not injected. Cornea within normal limits. Periorbital areas with no swelling, redness, or edema. ENT: Nares patent. No nasal discharge, no septal abnormalities noted. Tympanic membranes are normal and external auditory canals are clear. Oropharynx with no redness, swelling, or masses, exudates, or evidence of obstruction, uvula midline. Mucous membranes moist. Neck: Trachea midline, no thyromegaly or masses palpated, and no cervical lymphadenopathy. Supple, full range of motion without nuchal rigidity, or vertebral point tenderness. No Meningismus. Chest/axilla: Normal chest wall appearance and motion. Nontender with no deformity. No lesions are appreciated. Cardiovascular: Regular rate and rhythm with a normal S1 and S2. No gallops, murmurs, or rubs. Normal PMI, no JVD. No pulse deficits. Respiratory: Lungs have equal breath sounds bilaterally, clear to auscultation and percussion. No rales, rhonchi or wheezes noted. No increased work of breathing, no retractions or nasal flaring. Abdomen/GI: Soft, non-tender, with normal bowel sounds. No distension or tympany. No guarding or rebound. No evidence of tenderness throughout. Back: No spinal tenderness. No costovertebral tenderness. Full range of motion. Male : Normal genitalia with no discharge or lesions. Skin: Warm, dry with normal turgor. Normal color with no rashes, no lesions, and no evidence of cellulitis. 16:19 Constitutional: The patient appears in obvious distress, mildly distressed, moderately distressed. 16:19 Respiratory: mild respiratory distress is noted, Respirations: labored breathing, that is mild, Breath sounds: decreased breath sounds. 16:26 ECG was reviewed by the Attending Physician. [facility] 16:37 ECG was reviewed by the Attending Physician. [facility] Vital Signs: 15:27 BP 171 / 101; Pulse 107; Resp 18 S; Pulse Ox 91% on R/A; Pain 10/10; iw 15:45 BP 172 / 96; Pulse 101; Resp 20; Pulse Ox 88% on 4 lpm NC; iw 15:53 BP 125 / 90; Pulse 90; Resp 28; Pulse Ox 87% on Venturi mask; iw 16:05 BP 145 / 95; Pulse 95; Resp 28; Pulse Ox 87% on Venturi mask; iw 16:13 BP 145 / 92; Pulse 94; Resp 26; Pulse Ox 98% on BiPAP; iw 16:28 Weight 102.06 kg; Height 5 ft. 9 in. (175.26 cm); aj1 17:00 BP 123 / 86; Pulse 99; Resp 22; Pulse Ox 98% on BiPAP; 1 17:30 BP 127 / 82; Pulse 98; Resp 20; Pulse Ox 97% on BiPAP; 1 18:00 BP 132 / 98; Pulse 94; Resp 22; Pulse Ox 96% on BiPAP; aj1 16:28 Body Mass Index 33.23 (102.06 kg, 175.26 cm) [facility] MDM: 15:15 Patient medically screened. [facility] 16:22 Differential diagnosis: abnormal EKG, acute myocardial infarction, acute pericarditis, maria de jesus coronary artery disease congestive heart failure costochondritis, hiatal hernia, pancreatitis, pericarditis, pneumonia, pneumothorax, pulmonary embolus, stable angina, unstable angina. HEART Score: History: Highly Suspicious (2), ECG: Non specific repolarization disturbance / LBTB / PM (1), Age: > 45 and < 65 years (1), Risk Factors: > or = 3 Risk factors for atherosclerotic disease (2), [Hypercholesterolemia] [Hypertension] [DM] [+ Family HX] [Obesity] Troponin: > 1 and < 3 x normal limit (1), Total Score = 5. The patient was given aspirin in the Emergency Department. The patient's deep vein thrombosis risk score was calculated as follows: Total Score: 0. This patient was found to be at low risk for a deep vein thrombosis by using the Well's assessment criteria. The patient's pulmonary embolism risk score was calculated as follows: patient has experienced immobilization or surgery in the last four weeks (1.5 Pts) Total Score: 0-2 points. This patient was found to be at low risk for a pulmonary embolism by using the Well's assessment criteria. SYLVAIN Risk Score: 1 - Three or more CAD risk factors, 1- Known CAD, 1 - ASA use in past 7 days, 1 - Recent [<24hrs] Severe Angina, 1 - Elevated Cardiac Markers, TOTAL SCORE = 5. Data reviewed: vital signs, nurses notes, lab test result(s), EKG, radiologic studies. Data interpreted: cardiac monitor: rate is 105 beats/min, rhythm is regular, Pulse oximetry: on room air is 92 %. Test interpretation: by ED physician or midlevel provider: ECG, plain radiologic studies. Counseling: I had a detailed discussion with the patient and/or guardian regarding: the historical points, exam findings, and any diagnostic results supporting the discharge/admit diagnosis, the presence of at least one elevated blood pressure reading (>120/80) during this emergency department visit, lab results, radiology results, the need to transfer to another facility, for higher level of care, [facility] does not immediately have the required specialist, sp cabg 4 weeks ago, cp, needs echo. 08/12 15:16 Order name: Basic Metabolic Panel; Complete Time: 16:04 iw 08/12 15:16 Order name: CBC with Diff; Complete Time: 16:04 iw 08/12 15:16 Order name: LFT's; Complete Time: 16:04 iw 08/12 15:16 Order name: Magnesium; Complete Time: 16:04 iw 08/12 15:16 Order name: NT PRO-BNP; Complete Time: 16:04 iw 08/12 15:16 Order name: PT-INR; Complete Time: 16:04 08/12 15:16 Order name: Troponin (emerg Dept Use Only); Complete Time: 16:04 08/12 15:17 Order name: Basic Metabolic Panel [facility] 08/12 15:17 Order name: XRAY Chest (1 view); Complete Time: 16:19 [facility] 08/12 15:25 Order name: Lipase; Complete Time: 16:04 EDMS 08/12 16:01 Order name: BIPAP [facility] 08/12 16:52 Order name: COVID-19 [facility] 08/12 15:16 Order name: EKG; Complete Time: 15:16 iw 08/12 15:16 Order name: Cardiac monitoring; Complete Time: 15:32 08/12 15:16 Order name: EKG - Nurse/Tech; Complete Time: 15:32 08/12 15:16 Order name: IV Saline Lock; Complete Time: 15:32 08/12 15:16 Order name: Labs collected and sent; Complete Time: 16:08 08/12 15:16 Order name: O2 Per Protocol; Complete Time: 16:08 08/12 15:16 Order name: O2 Sat Monitoring; Complete Time: 16:08 08/12 15:17 Order name: EKG; Complete Time: 15:18 [facility] 08/12 15:17 Order name: Cardiac monitoring; Complete Time: 15:32 [facility] 08/12 15:17 Order name: EKG - Nurse/Tech; Complete Time: 15:32 [facility] 08/12 15:17 Order name: IV Saline Lock; Complete Time: 15:32 [facility] 08/12 15:17 Order name: Labs collected and sent; Complete Time: 15:33 [facility] 08/12 15:17 Order name: O2 Per Protocol; Complete Time: 15:33 [facility] 08/12 15:17 Order name: O2 Sat Monitoring; Complete Time: 15:33 [facility] 08/12 16:26 Order name: EKG - Nurse/Tech; Complete Time: 17:51 maria de jesus EC:26 Rate is 105 beats/min. Rhythm is regular. QRS [place] is Normal. NE interval is normal. maria de jesus QRS interval is prolonged. QT interval is normal. No Q waves. T waves are Normal. ST Segment is depressed in leads II, III, aVF, V4, V5, V6. Clinical impression: Sinus tachycardia. Interpreted by me. Reviewed by me. 16:37 Rate is 95 beats/min. Rhythm is regular. QRS [place] is Normal. NE interval is normal. QRS maria de jesus interval is prolonged. QT interval is normal. No Q waves. T waves are Normal. ST Segment is depressed in leads II, III, aVF, V4, V5, V6. Interpreted by me. Reviewed by me. 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 two ASA detective captain.} Route: iw PO; 17:21 Follow up: Response: No adverse reaction aj1 15:31 Drug: morphine 4 mg Route: IVP; Site: right antecubital; iw 17:21 Follow up: Response: No adverse reaction aj1 15:31 Drug: Zofran (Ondansetron) 4 mg Route: IVP; Site: right antecubital; iw 17:21 Follow up: Response: No adverse reaction aj1 15:32 Drug: NS 0.9% 500 ml Route: IV; Rate: bolus; Site: right antecubital; iw 17:22 Follow up: IV Status: Completed infusion; IV Intake: 500ml aj1 15:32 Drug: NS 0.9% 1000 ml Route: IV; Rate: 125 ml/hr; Site: right antecubital; iw 17:22 Follow up: IV Status: Completed infusion; IV Intake: 125ml aj1 15:45 Drug: Lopressor 2.5 mg {Note: BP 172/96 Pulse 101.} Route: IVP; Site: left antecubital; iw 17:20 Follow up: Response: No adverse reaction aj1 15:45 Drug: Lopressor 25 mg {Note: BP 172/96 Pulse 101.} Route: PO; iw 17:20 Follow up: Response: No adverse reaction aj1 16:06 Drug: Lasix 20 mg Route: IVP; Site: left antecubital; iw 17:20 Follow up: Response: No adverse reaction aj1 16:06 Drug: Dilaudid 0.5 mg Route: IVP; Site: left antecubital; iw 17:19 Follow up: Response: No adverse reaction; RASS: Alert and Calm (0) aj1 16:06 Drug: Lasix 20 mg Route: IVP; Site: left antecubital; iw 17:18 Follow up: Response: No adverse reaction aj1 16:30 Drug: Dilaudid 0.5 mg Route: IVP; Site: right antecubital; aj1 17:18 Follow up: Response: No adverse reaction; RASS: Alert and Calm (0) aj1 17:02 Drug: Dilaudid 0.5 mg Route: IVP; Site: right antecubital; aj1 17:18 Follow up: Response: No adverse reaction; RASS: Alert and Calm (0) aj1 17:02 Drug: Zofran (Ondansetron) 4 mg Route: IVP; Site: right antecubital; aj1 17:18 Follow up: Response: No adverse reaction aj1 17:14 Drug: Dilaudid 0.5 mg Route: IVP; Site: right antecubital; aj1 17:17 Follow up: Response: No adverse reaction; RASS: Alert and Calm (0) aj1 17:19 Drug: Lopressor 2.5 mg {Note: BP 134/87 Pulse 81.} Route: IVP; Site: right antecubital; aj1 18:04 Drug: Dilaudid 0.5 mg Route: IVP; Site: right antecubital; aj1 18:26 Follow up: Response: No adverse reaction; RASS: Alert and Calm (0) aj Disposition: 16:28 Critical Care:. maria de jesus Disposition: 08/12/20 16:30 Transfer ordered to [facility]. Diagnosis are Chest pain, unspecified, Unspecified combined systolic (congestive) and diastolic (congestive) heart failure, Essential (primary) hypertension, Cardiomegaly. - Reason for transfer: Higher level of care. - Accepting physician is to [facility] [place]. - Condition is Serious. - Problem is new. - Symptoms have improved. Critical care time excluding procedures: 16:28 Critical care time: Bedside Care: 25 minutes, Consultation: 10 minutes, Family maria de jesus Intervention: 10 minutes. Total time: 45 minutes Signatures: Dispatcher [employer] Kelsy Salas RN RN aj1 Suraj Harden MD MD cha Williams, Irene, RN RN iw Alexandria Morejon RN RN Corrections: (The following items were deleted from the chart) 15:20 15:16 Chest Single View+RAD.RAD.BRZ ordered. EDMS EDMS 15:26 15:17 Basic Metabolic Panel ordered. EDMS EDMS 15:26 15:18 CBC+H.LAB.BRZ ordered. EDMS EDMS 15:26 15:18 HEPATIC FUNCTION+C.LAB.BRZ ordered. EDMS EDMS 15:26 15:18 MAGNESIUM+C.LAB.BRZ ordered. EDMS EDMS 15:26 15:18 PROBNP+C.LAB.BRZ ordered. EDMS EDMS 15:26 15:18 TROPONIN (EMERG DEPT USE ONLY)+C.LAB.BRZ ordered. EDMS EDMS 15:26 15:18 LIPASE+C.LAB.BRZ ordered. EDMS EDMS 18:23 16:30 08/12/2020 16:30 Transfer ordered to [facility]. [facility] Diagnosis is Chest pain, unspecified; Unspecified combined systolic (congestive) and diastolic (congestive) heart failure; Essential (primary) hypertension; Cardiomegaly. Reason for transfer: Higher level of care. Accepting physician is to [facility] [place]. Condition is Serious. Problem is new. Symptoms have improved. maria de jesus
[2020-08-12 17:51] VITALS: O2SAT 96
[2020-08-12 18:59] VITALS: BP 132/98
--- NOTE | 2020-08-13 07:24 | EKG ---
Test Date: 2020-08-12 Test Time: 16:24:27 Instructional Systems Designer: JI MEASUREMENT RESULTS: Intervals: Rate: 95 AL: 208 QRSD: 124 QT: 374 QTc: 469 [place]: P: 40 AL: 208 QRS: 89 T: -76 INTERPRETIVE STATEMENTS: Normal sinus rhythm Septal infarct, age undetermined Possible Lateral infarct, age undetermined ST & Marked T wave abnormality, consider inferior ischemia Abnormal ECG Compared to ECG 07/02/2020 10:09:08 Myocardial infarct finding now present T-wave abnormality now present Possible ischemia now present Left-axis deviation no longer present Electronically Signed On 08-13-20 07:23:07 PASSENGER SOLICITOR by Ernst Hewitt
--- NOTE | 2020-08-13 07:24 | EKG ---
Test Date: 2020-08-12 Test Time: 15:15:06 Parts Facilitator: JI MEASUREMENT RESULTS: Intervals: Rate: 105 NM: 204 QRSD: 138 QT: 356 QTc: 470 [place]: P: 10 NM: 204 QRS: 78 T: -86 INTERPRETIVE STATEMENTS: Sinus tachycardia Nonspecific intraventricular block Cannot rule out Septal infarct, age undetermined Marked T wave abnormality, consider inferolateral ischemia Abnormal ECG Compared to ECG 07/02/2020 10:09:08 Myocardial infarct finding now present T-wave abnormality now present Possible ischemia now present Sinus rhythm no longer present Left-axis deviation no longer present Electronically Signed On 08-13-20 07:23:11 PIGMENT GRINDER by Ernst Hewitt
== END 2020-08-12 18:23 | disposition short-term general hospital (02) ==
LOC: ER 15:13
DX: I50.40 Unspecified combined systolic (congestive) and diastolic (congestive) heart failure (principal); I10 Essential (primary) hypertension; I51.7 Cardiomegaly; I25.2 Old myocardial infarction; Z79.82 Long term (current) use of aspirin; Z95.1 Presence of aortocoronary bypass graft
CPT/HCPCS: 93005 ×2; 85025; 80048; 36415; 83735; 85610; 80076; 84484; 83690; 83880; 71045; 94660; 99285; J1940 ×2; J1644; J1170 ×5; J7040; J2405 ×2

== ENCOUNTER 2021-01-12 13:18 | Emergency (ER) | payer OTHER ==
--- OUTSIDE RECORDS SUMMARY | 2021-01-12 13:28 | XMS REPORT | Continuity of Care Document ---
:1960 Author Organization [facility] t Address [address] [place] [address] Care Team Providers Name Role Phone Thompson Chadwick Primary Care Physician Brittnee Neumann MD Attending Clinician Heriberto PLUMMER, Brittni Attending Clinician Unavailable Gloria Beaulieu MD Attending Clinician Unavailable GLORIA BEAULIEU Attending Clinician Unavailable Domenic Conklin MD Attending Clinician Keith Vargas Attending Clinician Lexie ARIAS Attending Clinician Leobardo PLUMMER Attending Clinician Viridiana ARIAS Attending Clinician Dora Yoder MD Attending Clinician Unavailable Carmen ARIAS Attending Clinician LIS GOYAL Attending Clinician Unavailable GLORIA BEAULIEU Admitting Clinician Unavailable LIS GOYAL Admitting Clinician Unavailable Payers Payer Name Policy Type Policy Effective Date Expiration Date Sour ce Number CIGNA [id number] [facility] [address] [facility] [id number] 2019-P resentMaps Contracted Problems Condition Condition Condition Status Onset Resolution Last Treating Co mments Source Name Details Category Date Date Treatment Clinician Date NSTEMI NSTEMI Disease Active 2019-[address] [facility] [address] [facility] (non-ST 1[facility]08 [facility] - elevated elevated 00:00: Medica l myocardial myocardial 00 Ce nter infarction infarction ) ) PAF PAF Disease Active 2019-[address] [facility] [...] Disease Active [facility] artery artery 9-28 [facility] - disease disease 00:00: Medical 00 [place] Arthritis Arthritis Disease Active [facility] of right of right 1-08 [facility] - knee knee 00:00: Medical 00 Center Allergies, Adverse Reactions, Alerts This patient has no known allergies or adverse reactions. Social History Social Habit Start Date Stop Date Quantity Comments Source History [facility] - Alcohol Std Drinks Medica l Center History [facility] - Alcohol Binge Medical Christopher ter Sex Assigned At [facility] kes - Medical Center Tobacco use and 2020-08-14 2020-08-14 Never used [facility] [place] kes - exposure 00:00:00 00:00:00 Medical Center Alcohol intake 2020-08-14 2020-08-14 [facility]00:00 non-drinker of Medical Ce nter alcohol (finding) History [facility] 2019-10-04 2019-10-04 [address] [facility] [address] [facility] - Alcohol Frequency 00:00:00 00:00:00 [facility] Tobacco Comment 2019-10-04 2019-10-04 [facility] age 29 [facility] 00[facility]00:00 [facility] Smoking Status Start Date Stop Date Source Former smoker 2020-08-14 00:00:00 2020-08-14 00:00:[address] [facility] - [facility] Medications Ordered Filled Start Stop Current Ordering Indication Dosage Frequency Signature Comments Components Source Medication Medication Date Date Medication? Clinician (SIG) Name Name amiodarone 2019-10- No 200mg QD Take [address] (PACERONE) 10-17- tablet [facility] - 200 MG 00:00: 23:59 (200 mg Medical tablet 00 :00 total) by Center mouth daily. lisinopriL 2019-10 No 2.5mg QD Take [address] (PRINIVIL,Z 10-17 tablet [facility]ukes - ESTRIL) 2.5 00:00: 23:59 (2.5 mg Me dical MG tablet 00 :00 total) by Cente r mouth daily. pantoprazol 2019-10 Yes 40mg Q.5D Take [address] e 1-12 by mouth 2 [facility] - (PROTONIX) 11:56: (two) Medica l 40 MG 00 times Center tablet daily. gabapentin 2019-10 No 1800mg Q.5D Take 1,[address] (NEURONTIN) - 11-12 mg by [facility]ukes - 600 MG 08:47: 00:00 mouth 2 Medical tablet 17 :00 (two) Center times daily . ticagrelor 2019-10 Yes 90mg Q.5D Take 1 [facility] (BRILINTA) -12 tablet (90 Elvia es - 90 mg Tab 00:00: mg total) Med ical tablet 00 by mouth 2 Center (two) times daily. carvediloL 2019-10 No 12.5mg Q.5D Take [address] (COREG) -09 14-12 tablet [facility]ukes - 12.5 MG 00:00: 23:59 (12.5 mg Medic al tablet 00 :00 total) by Center mouth 2 (two) times daily. gabapentin 2019-10 No 1200mg Q.5D Take [address] (NEURONTIN) -12 11-12 capsules Elvia es - 400 MG 00:00: 23:59 (1,200 mg Medic al capsule 00 :00 total) by Center mouth 2 (two) times daily. tamsulosin 2019-10 Yes .4mg QD Take 1 [...] (furosemid e). No refills through my office. aspirin 81 2019-10- No 81mg QD Take [address] MG EC 0-15 10-15 tablet (81 [facility] - tablet 00:00: 23:59 mg total) Medic al 00 :00 by mouth Center daily No refills through my office. clopidogreL 2019-10- No 75mg QD Take [address] (PLAVIX) 75 0-15 11-12 tablet (75 L ukes - mg tablet 00:00: 00:00 mg total) Me dical 00 :00 by mouth Center daily No refills through my office. atorvastati 2019-10- No 40mg QD Take [address] n (LIPITOR) 0-14 10-14 by mouth Elvia es - 40 MG 11:44: 00:00 daily. Medical tablet 48 :00 [place] metoprolol 2019-10- No 25mg Q.5D Take [address] (LOPRESSOR) 0-14 10-14 by mouth 2 L ukes - 25 MG 11:44: 00:00 (two) Medical tablet 48 :00 times Center daily. amLODIPine 2019-10- No 10mg QD Take [address] (NORVASC) 0-14 10-14 by mouth [facility]ukes - 10 MG 11:44: 00:00 daily. Medical tablet 48 :00 Center baclofen 2019-10- No 20mg Q.[id number] Take [address] (LIORESAL) 0-14 10-14 [id number] by mouth 3 [facility] - 20 MG 11:44: 00:00 3D (three) Medical tablet 48 :00 times Center daily. meloxicam 2019-10- No 15mg QD Take [address] (MOBIC) 15 0-14 10-14 by mouth Luke s - MG tablet 11:44: 00:00 daily. Medic al 48 :00 Center polyethylen 2019-10 Yes Use as [facility] [...] through my office. baclofen 2019-10 Yes 20mg Q.[id number] Take [address] (LIORESAL) 0-14 [id number] tablet (20 [facility] - 20 MG 00:00: 3D mg total) Medical tablet 00 by mouth 3 Center (three) times daily Do not take if you are using [place] (hydrocodo ne). You have this at home. folic acid 2019-10- No 1mg QD Take [address] (FOLVITE) 1 0-14 10-14 tablet (1 Sunitha kes - MG tablet 00:00: 23:59 mg total) Me dical 00 :00 by mouth Center daily No refills through my office. furosemide 2019-10- No 40mg Take [address] [facility] (LASIX) 40 0-14 10-14 tablet (40 Sunitha kes - MG tablet 00:00: 23:59 mg total) Me dical 00 :00 by mouth 2 Center (two) times daily No refills through my office. ferrous 2019-10- No 325mg Take [address] [facility] sulfate 325 0-14 10-14 tablet Lukes - (65 FE) MG 00:00: 23:59 (325 mg Med ical tablet 00 :00 total) by Center mouth daily with lunch No refills through my office. carvediloL 2019-10- No 12.5mg Q.5D Take [address] (COREG) 0-14 11-12 tablet [facility]ukes - 12.5 MG 00:00: 00:00 (12.5 mg Medic al tablet 00 :00 total) by Center mouth 2 (two) times daily No refills through my office. amiodarone 2019-[address] (PACERONE) 0-14 11-12 tabs (400 Elvia es - 200 MG 00:00: 00:00 mg) once Medica l tablet 00 :00 tonight Center Jul 14, then begin on Jul 19 taking 1 tab twice a day for 7 days, then 1 tab daily. No refills through my office. HYDROcodone 2019-10 1{tbl} Take [address] -acetaminop 0-14 10-21 tablet by Sunitha delgado (NORCO 00:00: 23:59 mouth Medic al 10-325) 00 :00 every 6 Center 10-325 mg (six) per tablet hours as needed (Moderate to severe acute postop pain) for up to 7 days. Max Daily Amount: 4 tablets hydroCHLORO 25mg QD Take [address] thiazide 8-12 by mouth [facility]ukes - (HYDRODIURI 00:00: 00:00 daily. Med ical L) 25 MG 00 :00 Center tablet Vital Signs Vital Name Observation Time Observation Value Comments Source Systolic blood 2020-08-16 09:38:00 140 mm[Hg] [facility] Diastolic blood 2020-08-16 09:38:00 70 mm[Hg] [facility] Heart rate 2020-08-16 09:38:00 89 /min [facility] Respiratory rate 2020-08-16 08:28:00 16 /min [facility] Oxygen saturation in 2020-08-16 08:28:00 96 /min [facility] - Arterial blood by Medical Ce nter Pulse oximetry Body temperature 2020-08-16 05:00:00 36.5 Ninoska [facility] Body weight 2020-08-15 06:00:00 96.4 kg [facility] BMI 2020-08-15 06:00:00 31.38 kg/m2 [facility] Body height 2020-08-13 04:00:00 175.3 cm [facility] Procedures Procedure Date / Time Performing Clinician Source Performed BASIC METABOLIC PANEL (7) 2020-08-16 05:03:00 Gerda Sloan [facility] CBC W/PLT COUNT & AUTO 2020-08-16 05:03:00 Gerda Sloan [facility] MAGNESIUM 2020-08-16 05:03:00 [facility]OLIC PANEL (7) 2020-08-15 05:21:00 Gerda Sloan [facility] CBC W/PLT COUNT & AUTO 2020-08-15 05:21:00 Gerda Sloan [facility] MAGNESIUM 2020-08-15 05:21:00 [facility] 2020-08-15 04:39:00 Gerda Sloan [facility] PORTABLE/BEDSIDE Medical Center 2D ECHO W/ DOPPLER 2020-08-14 11:52:07 [facility] MAGNESIUM 2020-08-14 10:03:00 Sekou Rodrigues [facility] TROPONIN I 2020-08-14 05:28:[facility]IC METABOLIC PANEL (7) 2020-08-14 05:28:00 Gerda Sloan Mahesh [facility] CBC W/PLT COUNT & AUTO 2020-08-14 05:28:00 Gerda Sloan [facility] XR CHEST 1 VIEW 2020-08-14 04:26:00 Gerda Sloan [facility] PORTABLE/BEDSIDE Medical Center APTT 2020-08-14 02:38:00 [facility] PLATE[facility] COUNT 2020-08-13 19:30:00 Gerda Sloan Mahesh [facility] APTT 2020-08-13 19:30:[address] [facility] PREPARE RBC 2020-08-13 16:30:00 [facility] POCT-ACT 2020-08-13 11:21:00 Beaulieu [facility] ECG 12-LEAD 2020-08-13 11:01:56 RaviSekou [facility] ANTIBODY IDENTIFICATION 2020-08-13 09:29:00 Britt[facility] TROPONIN I 2020-08-13 02:22:00 Gerda Sloan [facility] APTT 2020-08-13 02:22:00 Gerda Sloan [facility] CBC W/PLT COUNT & AUTO 2020-08-13 02:22:[address] [facility] BASIC METABOLIC PANEL (7) 2020-08-13 02:22:00 Linda Pinedo [facility] MAGNESIUM 2020-08-13 02:22:00 Khris [facility] FIBRINOGEN 2020-08-13 02:22:00 [facility] X[facility] CHEST 1 VIEW 2020-08-13 00:56:00 Gerda Sloan [facility] PORTABLE/BEDSIDE [facility] POCT-ACT 2020-08-12 21:11:00 [facility] TYPE AND SCREEN, AUTOMATED 2020-08-12 21:00:00 Brittnee [facility] POCT-ACT 2020-08-12 20:46:00 [facility]nee [facility] ECG 12-LEAD 2020-08-12 19:54:04 Unknown, Hl7 Doctor [facility] L CATH & CORONARY ANGIOS 2020-08-12 19:41:00 Beaulieu [facility] SARS-COV2/RT-PCR ([facility] & 2020-08-12 19:16:00 Gerda Sloan [facility] - REF LABS) [facility] BASIC METABOLIC PANEL (7) 2020-08-12 19:09:00 Linda Pinedo [facility] CBC W/PLT COUNT & AUTO 2020-08-12 19:09:00 [facility] LACT[facility]ID, VENOUS 2020-08-12 19:09:00 Khris [facility] PROTHROMBIN TIME/INR 2020-08-12 19:09:00 Ella Pinedo I [facility] PT/APTT 2020-08-12 19:09:00 Khris [facility] TROPONIN I 2020-08-12 19:09:00 Khris [facility] VASCULAR DIAGRAM -SCAN 2020-08-12 00:00:00 Howard [facility] CARDIAC CATH REPORT - SCAN 2020-08-12 00:00:00 Provider [facility] REPORT OF PROCEDURE - 2020-08-12 00:00:00 Provider [facility] ENDOSCOPY SCAN [facility] XR CHEST 2 VIEWS 2020-07-31 13:07:00 Christopher Serra [facility] POCT-GLUCOSE METER 2020-07-18 11:13:00 Roshan Owen [facility] POCT-GLUCOSE METER 2020-07-18 07:38:00 Roshan Owen [facility] BASIC METABOLIC PANEL (7) 2020-07-18 05:29:00 Fannie Barcenas [facility] CBC W/PLT COUNT & AUTO 2020-07-18 05:29:00 Fannie Barcenas [facility] MAGNESIUM 2020-07-18 05:29:00 Fannie Barcenas [facility] XR CHEST 1 VIEW 2020-07-18 05:13:00 Dee Reyna [facility] - PORTABLE/BEDSIDE Medical Center POCT-GLUCOSE METER 2020-07-17 21:03:00 Roshan Owen [facility] OSMOLALITY, SERUM 2020-07-17 17:16:00 Hemal Sim [facility] POCT-GLUCOSE METER 2020-07-17 16:44:00 Lexie [facility] SODIUM, RANDOM URINE 2020-07-17 16:06:00 Hemal Sim [facility] POTASSIUM, RANDOM URINE 2020-07-17 16:06:00 Hemal Sim [facility] OSMOLALITY, URINE 2020-07-17 16:06:00 Hemal Sim [facility] UREA NITROGEN, RANDOM 2020-07-17 16:06:00 Chiquis [facility] URINE [facility] 2D ECHO W/ DOPPLER 2020-07-17 15:57:24 [facility] ([facility] POCT-GLUCOSE METER 2020-07-17 10:51:00 Lexie [facility] XR CHEST 1 VIEW 2020-07-17 07:56:00 Dee Reyna [facility] PORTABLE/BEDSIDE Medical Center POCT-GLUCOSE METER 2020-07-17 07:30:00 Lexie [facility] CBC W/PLT COUNT & AUTO 2020-07-17 05:42:00 Fannei Barcenas [facility] BASIC METABOLIC PANEL (7) 2020-07-17 05:40:00 Fannie Barcenas [facility] MAGNESIUM 2020-07-17 05:40:00 Fannie Barcenas [facility] BLOOD GAS, ARTERIAL 2020-07-17 05:20:00 Dc Aguilera [facility] POCT-GLUCOSE METER 2020-07-16 21:14:00 [facility]SE METER 2020-07-16 17:30:00 [facility] VITAMIN B12 AND FOLATE 2020-07-16 13:48:00 Lexie [facility] FERRITIN 2020-07-16 13:48:00 Lexie [facility] IRON, TIBC, % SAT. 2020-07-16 13:48:00 [facility] (WITHOUT FERRITIN) [facility] POCT-GLUCOSE METER 2020-07-16 11:18:00 [facility] XR CHEST 1 VIEW 2020-07-16 09:16:00 Dee Reyna [facility] - PORTABLE/BEDSIDE [facility] POCT-GLUCOSE METER 2020-07-16 07:11:00 [facility] BASIC METABOLIC PANEL (7) 2020-07-16 05:37:00 [facility] CBC W/PLT COUNT & AUTO 2020-07-16 05:37:00 Fannie Barcenas [facility] MAGNESIUM 2020-07-16 05:37:00 Narinder [facility] POCT-GLUCOSE METER 2020-07-15 22:26:00 [facility] POCT-GLUCOSE METER 2020-07-15 16:49:00 [facility] POCT-GLUCOSE METER 2020-07-15 11:10:00 [facility] POCT-GLUCOSE METER 2020-07-15 07:41:00 [facility] XR CHEST 1 VIEW 2020-07-15 07:11:00 Dee Reyna [facility] - PORTABLE/BEDSIDE [facility] BASIC METABOLIC PANEL (7) 2020-07-15 05:21:00 Fannie Barcenas [facility] CBC W/PLT COUNT & AUTO 2020-07-15 05:21:00 Fannie Barcenas [facility] MAGNESIUM 2020-07-15 05:21:00 Fannie Barcenas [facility] POCT-GLUCOSE METER 2020-07-14 21:36:[facility] 2020-07-14 04:39:00 Dee [facility]EDSIDE [facility] BASIC METABOLIC PANEL (7) 2020-07-14 04:21:00 Fannie Barcenas [facility] CBC W/PLT COUNT & AUTO 2020-07-14 04:21:00 HeFannie estes [facility] MAGNESIUM 2020-07-14 04:21:00 Fannie Barcenas [facility] POCT-GLUCOSE METER 2020-07-13 21:26:00 Roshan Owen [facility] XR CHEST 1 VIEW 2020-07-13 05:12:00 Dee Reyna [facility] PORTABLE/BEDSIDE [facility] BASIC METABOLIC PANEL (7) 2020-07-13 05:05:00 Fannie Barcenas [facility] CBC W/PLT COUNT & AUTO 2020-07-13 05:05:00 Narinder Fannie [facility] MAGNESIUM 2020-07-13 05:05:00 Fannie Barcenas [facility] TRANSFUSION SERVICE REPORT 2020-07-12 18:04:[address] [facility] - SCAN Scanning [facility] POCT-GLUCOSE METER 2020-07-12 06:17:00 Tang Conklin [facility] BLOOD GAS, ARTERIAL 2020-07-12 04:28:00 [facility] BASIC METABOLIC PANEL (7) 2020-07-12 04:28:00 NaridnerFannie [facility] CBC W/PLT COUNT & AUTO 2020-07-12 04:28:00 Heibelisabeth [facility] MAGNESIUM 2020-07-12 04:28:00 Fannie Barcenas [facility] XR CHEST 1 VIEW 2020-07-12 01:58:00 Dee Reyna [facility] PORTABLE/BEDSIDE [facility] PREPARE LEUKO-REDUCED RBC 2020-07-11 23:54:00 Raven Hung [facility] POCT-GLUCOSE METER 2020-07-11 23:24:00 Tang Conklin [facility] TRANSFUSION SERVICE REPORT 2020-07-11 18:04:09 Provider, [facility] - - SCAN Scanning [facility] POCT-GLUCOSE METER 2020-07-11 18:01:00 Tang Conklin sarah [facility] VASCULAR DIAGRAM -SCAN 2020-07-11 15:21:51 Provider, Default [facility] ECG 12-LEAD 2020-07-11 13:32:49 [facility] BASIC METABOLIC PANEL (7) 2020-07-11 11:37:00 Fannie Barcenas [facility] MAGNESIUM 2020-07-11 11:37:00 Fannie Barcenas [facility] BLOOD GAS, ARTERIAL 2020-07-11 11:37:00 Margaret Carmona [facility] POCT-GLUCOSE METER 2020-07-11 11:36:00 Tang Conklin [facility] BLOOD GAS, ARTERIAL 2020-07-11 07:03:00 Dee Reyna [facility] OXYGEN SATURATION, 2020-07-11 07:03:00 Maria L Child [facility] POCT-GLUCOSE METER 2020-07-11 05:24:00 Tang Conklin [facility] BASIC METABOLIC PANEL (7) 2020-07-11 03:16:[address] [facility] MAGNESIUM 2020-07-11 03:16:[address] [facility] PHOSPHORUS 2020-07-11 03:16:00 Ale [facility] CBC (HEMOGRAM ONLY) 2020-07-11 03:16:00 Ale [facility] BLOOD GAS, ARTERIAL 2020-07-11 03:16:00 Domenic Mena [facility] XR CHEST 1 VIEW 2020-07-11 02:30:00 Dee Reyna [facility] PORTABLE/BEDSIDE Medical Center POCT-GLUCOSE METER 2020-07-10 23:56:00 Tang Conklin sarah [facility] PREPARE PLATELETS 2020-07-10 23:54:00 Tang Conklin [facility] TRANSFUSION SERVICE REPORT 2020-07-10 18:23:[address] [facility] BLOOD GAS, ARTERIAL 2020-07-10 17:58:00 [facility] POCT-GLUCOSE METER 2020-07-10 17:57:00 Tang Conklin [facility] BLOOD GAS, ARTERIAL 2020-07-10 12:31:00 Alipriscilla Maria L [facility] OXYGEN SATURATION, 2020-07-10 12:31:00 AlinoMaria Leoma [facility] BASIC METABOLIC PANEL (7) 2020-07-10 12:31:00 Maria L Childo [facility] MAGNESIUM 2020-07-10 12:31:00 AlinoMaria Leoma [facility] ECG 12-LEAD 2020-07-10 11:12:27 Fannie Barcenas [facility] BLOOD GAS, ARTERIAL 2020-07-10 09:54:00 AlinoMaria L [facility] BLOOD GAS, ARTERIAL 2020-07-10 07:32:00 [facility]ic [facility] BLOOD GAS, ARTERIAL 2020-07-10 05:58:00 Sloan, [facility] LACTIC ACID, ARTERIAL 2020-07-10 05:57:[address] [facility] POCT-GLUCOSE METER 2020-07-10 05:48:00 Tang Conklin [facility] ECG 12-LEAD 2020-07-10 05:28:37 Alino [facility] BLOOD GAS, ARTERIAL 2020-07-10 03:24:[address] [facility] LACTIC ACID, ARTERIAL 2020-07-10 03:24:[address] [facility] [place] [place] BASIC METABOLIC PANEL (7) 2020-07-10 03:24:[address] [facility] MAGNESIUM 2020-07-10 03:24:00 [facility] PHOSPHORUS 2020-07-10 03:24:00 Ale [facility] CBC (HEMOGRAM ONLY) 2020-07-10 03:24:00 [facility] OXYGEN SATURATION, 2020-07-10 03:24:00 Luther [facility] TRANSFUSE LEUKO-REDUCED 2020-07-10 03:02:30 [facility] RED BLOOD CELLS [facility] XR CHEST 1 VIEW 2020-07-10 02:38:00 [facility] BLOOD GAS, ARTERIAL 2020-07-10 00:17:[address] [facility] LACTIC ACID, ARTERIAL 2020-07-10 00:17:[address] [facility] POCT-GLUCOSE METER 2020-07-10 00:08:00 Tang Conklin [facility] CALCIUM, IONIZED 2020-07-09 22:50:00 Uk, [facility] MAGNESIUM 2020-07-09 22:50:00 [place], [facility] PHOSPHORUS 2020-07-09 22:50:00 [place], [facility] BASIC METABOLIC PANEL (7) 2020-07-09 22:50:00 Uk, [facility] OXYGEN SATURATION, 2020-07-09 22:50:00 Luther [facility] RRL CRITICAL LABS 2020-07-09 22:50:00 Luther [facility] (ABG,NA,K,H&H,GLUCOSE) [facility] enter LACTIC ACID, ARTERIAL 2020-07-09 22:50:00 Luther, [facility] SODIUM NA-STAT LAB 2020-07-09 22:50:00 Sloan, [facility] POTASSIUM-STAT LAB 2020-07-09 22:50:00 Sloan, [facility] GLUCOSE-STAT LAB 2020-07-09 22:50:00 Sloan, [facility] HGB/HCT (H&H) - STAT LAB 2020-07-09 22:50:00 Amanda [facility] BLOOD GAS, ARTERIAL 2020-07-09 21:30:00 Abhilash Raven Stevie [facility] POTASSIUM 2020-07-09 20:57:[address] [facility] ECG 12-LEAD 2020-07-09 20:27:54 Sloan, [facility] ECG 12-LEAD 2020-07-09 20:25:43 Unknown, Hl7 [facility] LACTIC ACID, ARTERIAL 2020-07-09 19:28:00 Fannie Barcenas [facility] HEMOGLOBIN AND HEMATOCRIT 2020-07-09 19:28:00 crystal, Raven Ferminjena [facility] POCT-GLUCOSE METER 2020-07-09 19:26:00 Tang Conklin [facility] PREPARE RBC 2020-07-09 19:12:00 [facility] PREPARE PLASMA 2020-07-09 19:12:00 [facility] BASIC METABOLIC PANEL (7) 2020-07-09 18:02:[address] [facility] BLOOD GAS, ARTERIAL 2020-07-09 18:02:00 Dc Aguilera [facility] MAGNESIUM 2020-07-09 18:02:00 [facility] PHOSPHORUS 2020-07-09 18:02:00 Ale [facility] TROPONIN I 2020-07-09 18:02:00 Saraidannie [facility] POCT-GLUCOSE METER 2020-07-09 18:01:00 Tang Conklin [facility] LACTIC ACID, ARTERIAL 2020-07-09 17:55:00 Fannie Barcenas [facility] ECG 12-LEAD 2020-07-09 15:58:26 DanyellMaria Leoma [facility] XR CHEST 1 VIEW 2020-07-09 15:55:00 DanyellMaria Leoma [facility]/BEDSIDE Medical [facility] CBC W/PLT COUNT & AUTO 2020-07-09 15:36:00 DanyellMaria Leoma [facility] BASIC METABOLIC PANEL (7) 2020-07-09 15:36:00 DanyellFelicityMaria L Taliao ma [facility] MAGNESIUM 2020-07-09 15:36:00 RomeliapriscillaMaria L Airam [facility] PHOSPHORUS 2020-07-09 15:36:00 DanyellMaria Leoma [facility] CALCIUM, IONIZED 2020-07-09 15:36:00 DanyellMaria L Airam [facility] LACTIC ACID, ARTERIAL 2020-07-09 15:36:00 DanyellFelicityMaria L [facility] PROTHROMBIN TIME/INR 2020-07-09 15:36:00 DanyellFelicityMaria L [facility] APTT 2020-07-09 15:36:00 DanyellMaria L Airam [facility] FIBRINOGEN 2020-07-09 15:36:00 Danyell, Maria L Airam [facility] RRL CRITICAL LABS 2020-07-09 15:36:00 [facility]ell [facility] (ABG,NA,K,H&H,GLUCOSE) Medical C enter OXYGEN SATURATION, 2020-07-09 15:36:00 Maria L Child [facility] SODIUM NA-STAT LAB 2020-07-09 15:36:00 Maria L Child [facility] POTASSIUM-STAT LAB 2020-07-09 15:36:00 Maria L Child [facility] GLUCOSE-STAT LAB 2020-07-09 15:36:00 Maria L Child [facility] HGB/HCT (H&H) - STAT LAB 2020-07-09 15:36:00 Maria L Child [facility] (CELLAVISION MANUAL DIFF) 2020-07-09 15:36:00 Maria L Child ma [facility] POCT-ACT 2020-07-09 14:21:[address] [facility] RRL CRITICAL LABS 2020-07-09 14:14:06 [facility] (ABG,NA,K,H&H,GLUCOSE) Medical C enter CALCIUM, IONIZED 2020-07-09 14:14:06 [facility] PLATELET COUNT 2020-07-09 14:14:06 [facility] SODIUM NA-STAT LAB 2020-07-09 14:14:06 [facility] POTASSIUM-STAT LAB 2020-07-09 14:14:06 [facility] GLUCOSE-STAT LAB 2020-07-09 14:14:06 [facility] HGB/HCT (H&H) - STAT LAB 2020-07-09 14:14:06 [facility] CBC W/PLT COUNT & AUTO 2020-07-09 14:14:[address] [facility] DIFFERENTIAL [facility] TRANSFUSE LEUKO-REDUCED 2020-07-09 13:59:45 [facility] PLATELETS [facility] TRANSFUSE LEUKO-REDUCED 2020-07-09 13:59:00 Viridiana [facility] POCT-ACT 2020-07-09 13:16:00 [facility] 2020-07-09 13:04:00 [facility] RRL CRITICAL LABS 2020-07-09 12:58:20 Tang Conklin [facility] (ABG,NA,K,H&H,GLUCOSE) Medical C enter SODIUM NA-STAT LAB 2020-07-09 12:58:20 [facility] POTASSIUM-STAT LAB 2020-07-09 12:58:20 Rubin Tang [facility] GLUCOSE-STAT LAB 2020-07-09 12:58:20 Rubin Tang [facility] HGB/HCT (H&H) - STAT LAB 2020-07-09 12:58:[address] [facility] POCT-ACT 2020-07-09 12:39:00 [facility] 2020-07-09 12:29:40 [facility] (ABG,NA,K,H&H,GLUCOSE) Medical C enter SODIUM NA-STAT LAB 2020-07-09 12:29:40 Tang Conklin [facility] POTASSIUM-STAT LAB 2020-07-09 12:29:40 Rubin Tang [facility] GLUCOSE-STAT LAB 2020-07-09 12:29:[address] [facility] HGB/HCT (H&H) - STAT LAB 2020-07-09 12:29:40 Shafii, Tang Edwa [facility] RRL CRITICAL LABS 2020-07-09 11:58:14 Nikko Conklinis [facility] (ABG,NA,K,H&H,GLUCOSE) Medical C enter SODIUM NA-STAT LAB 2020-07-09 11:58:14 Rubin Tang [facility] POTASSIUM-STAT LAB 2020-07-09 11:58:14 Tang Conklin [facility] GLUCOSE-STAT LAB 2020-07-09 11:58:14 Tang Conklin [facility] HGB/HCT (H&H) - STAT LAB 2020-07-09 11:58:14 Tang Conklin [facility] POCT-ACT 2020-07-09 11:34:00 Brittnee [facility] RRL CRITICAL LABS 2020-07-09 11:30:34 [facility] (ABG,NA,K,H&H,GLUCOSE) Medical C enter SODIUM NA-STAT LAB 2020-07-09 11:30:34 Rubin Tang [facility] POTASSIUM-STAT LAB 2020-07-09 11:30:34 [facility] GLUCOSE-STAT LAB 2020-07-09 11:30:34 Tang Conklin [facility] HGB/HCT (H&H) - STAT LAB 2020-07-09 11:30:34 Tang Conklin [facility] POCT-ACT 2020-07-09 10:59:00 Brittnee [facility] BLOOD GAS, ARTERIAL 2020-07-09 10:58:09 Tang Conklin [facility] ANESTHESIA JOHN 2020-07-09 10:45:13 Ochoa Kemp [facility] POCT-ACT 2020-07-09 10:39:00 Brittnee [facility] POCT-ACT 2020-07-09 09:19:[address] [facility] RRL CRITICAL LABS 2020-07-09 08:51:03 Gwosdrafael, [facility] (ABG,NA,K,H&H,GLUCOSE) [facility] enter CALCIUM, IONIZED 2020-07-09 08:51:03 Gwosdz, [place] SODIUM NA-STAT LAB 2020-07-09 08:51:03 Gwosdz, [place] POTASSIUM-STAT LAB 2020-07-09 08:51:03 Gwosdz, [place] GLUCOSE-STAT LAB 2020-07-09 08:51:03 Gwosdz, [place] HGB/HCT (H&H) - STAT LAB 2020-07-09 08:51:03 Gwosdrafael, [facility] BYPASS,AORTO CORONARY 2020-07-09 07:48:[address] [facility] ENDOSCOPIC HARVEST,VEIN 2020-07-09 07:48:00 Tang Conklin [facility] JOHN,3D 2020-07-09 07:48:00 Tang Conklin [facility] CBC W/PLT COUNT & AUTO 2020-07-09 04:11:00 Elisabeth Castro Guseunice Sevilla [facility] BASIC METABOLIC PANEL (7) 2020-07-09 04:11:00 El Gus Castro [facility] MAGNESIUM 2020-07-09 04:11:00 El Gloria Guseunice Sevilla [facility] APTT 2020-07-09 04:11:00 Mike Jackson [facility] TYPE AND SCREEN, AUTOMATED 2020-07-09 03:51:00 Dc Aguilera [facility] SARS-COV2/RT-PCR ([facility] & 2020-07-08 14:56:00 Coster, [facility] - REF LABS) [facility] PLATELET AGGREGATION: 2020-07-08 12:08:00 Ale [facility] - FUNCTION SCREEN [facility] APTT 2020-07-08 03:00:[address] [facility] BASIC METABOLIC PANEL (7) 2020-07-08 03:00:00 Linda Pinedo [facility] MAGNESIUM 2020-07-08 03:00:00 Khris [facility] CBC W/PLT COUNT & AUTO 2020-07-08 03:00:00 [facility] DIFFERENTIAL [facility] TRANSFUSION SERVICE REPORT 2020-07-07 18:01:54 Hunter Lawrence [facility] - - SCAN [facility] ECG 12-LEAD 2020-07-07 06:17:08 Ale [facility] APTT 2020-07-07 04:51:[address] [facility] MAGNESIUM 2020-07-07 04:51:[address] [facility] BASIC METABOLIC PANEL (7) 2020-07-07 04:51:00 Odilon Werner [facility] MAGNESIUM 2020-07-06 21:48:00 Ale [facility] COMPREHENSIVE METABOLIC 2020-07-06 21:48:00 Ale [facility] HEMOGLOBIN A1C 2020-07-06 21:48:00 Ale [facility] LIPID PANEL 2020-07-06 21:48:00 Ale [facility] CBC W/PLT COUNT & AUTO 2020-07-06 21:48:00 Ale [facility] PROTHROMBIN TIME/INR 2020-07-06 21:48:00 Ale [facility] APTT 2020-07-06 21:48:00 Ale [facility] TYPE AND SCREEN, AUTOMATED 2020-07-06 21:48:00 Dc Aguilera [facility] PLATELET AGGREGATION: 2020-07-06 15:46:[address] [facility] FUNCTION [facility] ECG 12-LEAD 2020-07-06 14:20:08 Unknown, Hl7 Doctor [facility] CBC W/PLT COUNT & AUTO 2020-07-06 04:24:[address] [facility] BASIC METABOLIC PANEL (7) 2020-07-06 04:24:00 Kinza Varela [facility] MAGNESIUM 2020-07-06 04:24:00 [facility] PT/APTT 2020-07-06 04:24:00 Kinza Varela [facility] BASIC METABOLIC PANEL (7) 2020-07-05 05:13:00 Mike Jackson [facility] MAGNESIUM 2020-07-05 05:13:[address] [facility] CBC W/PLT COUNT & AUTO 2020-07-05 05:13:00 Mike Jackson [facility] APTT 2020-07-05 05:13:[address] [facility] APTT 2020-07-04 22:03:[address] [facility] CAROTID DOPPLER BILATERAL 2020-07-04 18:33:00 Andrew Debi [facility] VEIN MAPPING LEGS 2020-07-04 18:33:00 Debi Morales [facility] POCT-ACT 2020-07-04 11:55:00 [facility] / CORONARY 2020-07-04 10:55:00 Drake Beaulieu [facility] - ANGIOS / PCI [facility] PCI & IVUS 2020-07-04 10:55:00 [facility] PLATELET AGGREGATION: 2020-07-04 08:43:00 Drake Beaulieu [facility] - FUNCTION SCREEN [facility] BASIC METABOLIC PANEL (7) 2020-07-04 03:51:00 Mike Jackson [facility] MAGNESIUM 2020-07-04 03:51:00 Mike Jackson [facility] CBC W/PLT COUNT & AUTO 2020-07-04 03:51:00 Mike Jackson [facility] APTT 2020-07-04 03:51:00 Mike Jackson [facility] POTASSIUM 2020-07-03 17:00:00 Renetta Mike [facility] APTT 2020-07-03 17:00:00 Mike Jackson [facility] MAGNESIUM 2020-07-03 17:00:00 Mike Jackson [facility] 2D ECHO W/ DOPPLER 2020-07-03 12:47:59 Drake Beaulieu [facility] - (CW/PW/COLOR) [facility] POTASSIUM 2020-07-03 12:17:00 Mike Jackson [facility] MAGNESIUM 2020-07-03 12:17:00 Mike Jackson [facility] NM MYOCARDIAL PERFUSION 2020-07-03 11:20:00 Drake Beaulieu [facility] - PET/CT (REST & STRESS) [facility] enter TREADMILL 2020-07-03 11:05:59 Unknown, Hl7 Doctor KAR Grossman - TOLERANCE(NON-NUCLEAR Medical Ce nter TREADMILL) ECG 12-LEAD 2020-07-03 11:02:25 Mike Jackson [facility] TROPONIN I 2020-07-03 09:49:00 Mike Jackson [facility] APTT 2020-07-03 09:49:00 Mike Jackson [facility] TROPONIN I 2020-07-03 03:30:00 Mike Jackson [facility] BASIC METABOLIC PANEL (7) 2020-07-03 03:30:00 Mike Jackson [facility] MAGNESIUM 2020-07-03 03:30:00 Mike Jackson [facility] CBC W/PLT COUNT & AUTO 2020-07-03 03:30:[address] [facility] LACTIC ACID, VENOUS 2020-07-03 03:30:00 Mike Jackson [facility] BLOOD GAS, VENOUS 2020-07-03 03:30:00 Mike Jackson [facility] APTT 2020-07-03 03:30:00 Mike Jackson [facility] LACTIC ACID, VENOUS 2020-07-02 22:38:00 Mike Jackson [facility] SARS-COV2/RT-PCR ([facility] & 2020-07-02 21:49:00 Mike Jackson CH I [facility] - REF LABS) [facility] ECG 12-LEAD 2020-07-02 21:46:18 Unknown, Hl7 Doctor [facility] XR CHEST 1 VIEW 2020-07-02 21:40:00 [facility] LACTIC ACID, VENOUS 2020-07-02 21:40:00 Mike Jackson [facility] HEMOGLOBIN A1C 2020-07-02 21:28:00 Mike Jackson [facility] B-TYPE NATRIURETIC FACTOR 2020-07-02 21:02:[address] [facility] (BNP) [facility] CBC W/PLT COUNT & AUTO 2020-07-02 21:02:[address] [facility] BASIC METABOLIC PANEL (7) 2020-07-02 21:02:00 Mike Jackson [facility] PT/APTT 2020-07-02 21:02:00 Mike Jackson [facility] PROTHROMBIN TIME/INR 2020-07-02 21:02:00 Mike Jackson [facility] TSH 2020-07-02 21:02:[address] [facility] LACTIC ACID, VENOUS 2020-07-02 21:02:00 [facility] TROPONIN I 2020-07-02 21:02:00 [facility] HEPATIC FUNCTION PANEL 2020-07-02 21:02:00 [facility] LIPID PANEL 2020-07-02 21:02:00 [facility] MAGNESIUM 2020-07-02 21:02:00 [facility] VASCULAR DIAGRAM -SCAN 2020-07-02 00:00:00 Provider [facility] CARDIAC CATH REPORT - SCAN 2020-07-02 00:00:00 Provider [facility] REPORT OF PROCEDURE - 2020-07-02 00:00:00 Provider [facility] ENDOSCOPY [facility] Plan of Care Planned Activity Planned Date Details Comments Source Future Scheduled 2023-07-[address] [facility] Test 00:00:00 (procedure) [code = [facility] [id number]] Future Scheduled 2020-10-[address] [facility] - Test 00:00:00 WELLNESS (YEAR 2 or [facility] FIRST YEAR if no IPPE) [code = MEDICARE ANNUAL WELLNESS (YEAR 2 or FIRST YEAR if no IPPE)] Future Scheduled 2020-10-[address] [facility] - Test 00:00:00 (12+) [code = [facility] DEPRESSION SCREENING (12+)] Future Scheduled 2020-06-05 INFLUENZA VACCINE (#1) [facility] Test 00:00:00 [code = INFLUENZA Medical Ce nter VACCINE (#1)] Future Scheduled 2008 SHINGLES VACCINES ([address] [facility] - Test 00:00:00 of 2) [code = SHINGLES Medic al Center VACCINES (1 of 2)] Future Scheduled 1977 DTAP/TDAP/TD VACCINES [facility] - Test 00:00:00 (1 - Tdap) [code = Medical C enter DTAP/TDAP/TD VACCINES (1 - Tdap)] Future Scheduled 1976 HEPATITIS C [facility]CRE[facility]ING [facility] Test 00:00:00 [code = HEPATITIS C Medical Center SCREENING] Future Scheduled [address] [facility] - Test 00:00:00 0-64 YRS (1 of 1 - Medical C enter PPSV23) [code = PNEUMOCOCCAL VACCINE 0-64 YRS (1 of 1 - PPSV23)] Future Scheduled [address] [facility] - Test 00:00:00 malignant neoplasm of Medica l Center colon (procedure) [code = 416374550] Encounters Start End Encounter Admission Attending Care Care Encounter Source Date/Time Date/Time Type Type Clinicians Facility Department ID 2020-09-04 2020-09-04 Office KARON Beaulieu [id number] 12:52:12 13:12:12 Visit Drake AMBULATOR [id number] Y [id number] [id number] 2019-12-05 2019-12-05 Office KARON Goyal [id number] 12:08:28 12:18:28 Visit Ernst AMBULATOR 350.1.13.21 Y 0.2.7.2.686 [id number] 2019-10-27 2019-10-27 Office KARON Goyal [id number] 10:26:14 11:26:31 Visit Ernst AMBULATOR 350.1.13.21 Y [id number] [id number] 2019-07-04 2019-07-04 Office KARON Goyal [id number] 12:43:07 14:30:53 Visit Ernst AMBULATOR 350.1.13.21 Y 0.2.7.2.686 [id number] Results Test Description Test Time Test Comments Results Result Sourc e Comments VASCULAR DIAGRAM 2021-01-01 Ordered by an [facility]AR [facility] -SCAN 16:45:24 unspecified - Medical provider. [facility] CARDIAC CATH 2020-08-21 Ordered by an KAR Ames kes REPORT - SCAN 10:18:16 unspecified - Medical provider. [facility] Basic metabolic panel 2020-08-16 05:55:00 Test Item Value Reference Range Interpretation Comme nts Sodium (test code = 135 meq/L 136-145 L 2951-2) Potassium (test code = 4.1 meq/L 3.5-5.1 Speci men slightly 2823-3) hemolyzed Chloride (test code = 101 meq/L 98-107 2075-0) CO2 (test code = 8-9) 25 meq/L 22-29 BUN (test code = 3094-0) 14 mg/dL 7-21 Creatinine (test code = 1.02 mg/dL 0.57-1.25 Spec imen slightly 2160-0) hemolyzed Glucose (test code = 118 mg/dL 70-105 H 2345-7) Calcium (test code = 9.2 mg/dL 8.4-10.2 01965-0) EGFR (test code = 87609-6) 74 mL/min/1.73 sq m ESTIMATED GFR IS NOT ACCURATE CREATININE SEBASTIAN NORMA IN PREDICTING GLOMERULAR FILT RATION RATE. ESTIMATED GFR IS NOT APPLICAB LE FOR DIALYSIS PATIEN TS. SHERON (test code = SHERON) 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 ID - YANETH Lab Interpretation (test Abnormal code = 01705-3) [facility] 05[facility]55:00 Test Item Value Reference Range Interpretation Comments Magnesium (test code = 2.1 mg/dL 1.6-2.6 Speci men 97344-4) slightly hemolyzed SHERON (test code = SHERON) 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 ID - YANETH M Lab Interpretation Normal (test code = 79874-7) [facility]00 Test Item Value Reference Range Interpretation Comments MAGNESIUM (BEAKER) 2.1 mg/dL 1.6-2.6 Specimen slightly (test code = 627) hemolyzed 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 ID - YANETH MBASIC METABOLIC [id number] 05:55:00 Test Item Value Reference Range Interpretation Comments SODIUM (BEAKER) 135 meq/L 136-145 L (test code = 381) POTASSIUM (BEAKER) 4.1 meq/L 3.5-5.1 Specimen slightly (test code = 379) hemolyzed CHLORIDE (BEAKER) 101 meq/L 98-107 (test code = 382) CO2 (BEAKER) (test 25 meq/L 22-29 code = 355) BLOOD UREA NITROGEN 14 mg/dL 7-21 (BEAKER) (test code = 354) CREATININE (BEAKER) 1.02 mg/dL 0.57-1.25 Specimen slightly (test code = 358) hemolyzed GLUCOSE RANDOM 118 mg/dL 70-105 H (BEAKER) (test code = 652) CALCIUM (BEAKER) 9.2 mg/dL 8.4-10.2 (test code = 697) EGFR (BEAKER) (test 74 mL/min/1.73 ESTIMA ROSA ISELA GFR IS code = 1092) sq m NOT ACCURATE CREATININE CLEARANCE IN PREDICTING GLOMERULAR FILTRATION RATE . ESTIMATED GFR I S NOT APPLICABLE FOR DIALYSIS PATIEN TS. 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 ID - YANETH MCBC with platelet count + automated [id number] 05:19:00 Test Item Value Reference Range Interpretation Comments WBC (test code = 6690-2) 5.5 See_Comment [A utomated message] The system OBOOK generated this result transmitted ref erence range: 3.5 - 10 .5 K/L. The refe rence range was not u sed to interpret this result as normal/abnor mal. RBC (test code = 789-8) 2.91 See_Comment L [Au tomated message] The system OBOOK generated this result transmitted ref erence range: 4.63 - 6 .08 M/L. The refe rence range was not u sed to interpret this result as normal/abnor mal. MCHC (test code = 786-4) 31.6 See_Comment L [A utomated message] The system OBOOK generated this result transmitted ref erence range: 32.3 - 3 6.5 GM/DL. The refe rence range was not u sed to interpret this result as normal/abnor mal. Hematocrit (test code = 27.2 % 40.1-51 L 4544-3) MCV (test code = 787-2) 93.5 fL 79-92.2 H MCH (test code = 785-6) 29.6 pg 25.7-32.2 RDW (test code = 788-0) 15.5 % 11.6-14.4 H Platelets (test code = 227 See_Comment [Aut omated message] 777-3) The system OBOOK generated this result transmitted ref erence range: 150 - 45 0 K/CU MM. The referen ce range was not u sed to interpret this result as normal/abnor mal. MPV (test code = 10.7 fL 9.4-12.4 79910-8) nRBC (test code = 413) 0 See_Comment [Aut omated message] The system OBOOK generated this result transmitted ref erence range: 0 - 0 /1 00 WBC. The refere nce range was not u sed to interpret this result as normal/abnor mal. % Neutros (test code = 72 % 429) % Lymphs (test code = 13 % 430) % Monos (test code = 10 % 431) % Eos (test code = 432) 4 % % Baso (test code = 437) 1 % # Neutros (test code = 3.95 See_Comment [Aut omated message] 670) The system OBOOK generated this result transmitted ref erence range: 1.78 - 5 .38 K/L. The refe rence range was not u sed to interpret this result as normal/abnor mal. # Lymphs (test code = 0.71 See_Comment L [Auto mated message] 414) The system OBOOK generated this result transmitted ref erence range: 1.32 - 3 .57 K/L. The refe rence range was not u sed to interpret this result as normal/abnor mal. # Monos (test code = 0.53 See_Comment [Autom ated message] 415) The system OBOOK generated this result transmitted ref erence range: 0.30 - 0 .82 K/L. The refe rence range was not u sed to interpret this result as normal/abnor mal. # Eos (test code = 416) 0.24 See_Comment [Au tomated message] The system OBOOK generated this result transmitted ref erence range: 0.04 - 0 .54 K/L. The refe rence range was not u sed to interpret this result as normal/abnor mal. # Baso (test code = 417) 0.04 See_Comment [A utomated message] The system whic h generated this result transmitted ref erence range: 0.01 - 0 .08 K/L. The refe rence range was not u sed to interpret this result as normal/abnor mal. Immature 0 % 0-1 Granulocytes-Relative (test code = 2801) Lab Interpretation (test Abnormal code = 84509-5) [facility] W/PLT COUNT & AUTO [id number] 05:19:00 Test Item Value Reference Range Interpretation Comments WHITE BLOOD CELL COUNT (BEAKER) 5.5 K/ L 3.5-10.5 (test code = 775) RED BLOOD CELL COUNT (BEAKER) 2.91 M/ L 4.63-6.08 L (test code = 761) HEMOGLOBIN (BEAKER) (test code = 8.6 GM/DL 13.7-17.5 L 410) HEMATOCRIT (BEAKER) (test code = 27.2 % 40.1-51.0 L 411) MEAN CORPUSCULAR VOLUME (BEAKER) 93.5 fL 79.0-92.2 H (test code = 753) MEAN CORPUSCULAR HEMOGLOBIN 29.6 pg 25.7-32.2 (BEAKER) (test code = 751) MEAN CORPUSCULAR HEMOGLOBIN CONC 31.6 GM/DL 32.3-36.5 L (BEAKER) (test code = 752) RED CELL DISTRIBUTION WIDTH 15.5 % 11.6-14.4 H (BEAKER) (test code = 412) PLATELET COUNT (BEAKER) (test 227 K/CU MM 150-450 code = 756) MEAN PLATELET VOLUME (BEAKER) 10.7 fL 9.4-12.4 (test code = 754) NUCLEATED RED BLOOD CELLS 0 /100 WBC 0-0 (BEAKER) (test code = 413) NEUTROPHILS RELATIVE PERCENT 72 % (BEAKER) (test code = 429) LYMPHOCYTES RELATIVE PERCENT 13 % (BEAKER) (test code = 430) MONOCYTES RELATIVE PERCENT 10 % (BEAKER) (test code = 431) EOSINOPHILS RELATIVE PERCENT 4 % (BEAKER) (test code = 432) BASOPHILS RELATIVE PERCENT 1 % (BEAKER) (test code = 437) NEUTROPHILS ABSOLUTE COUNT 3.95 K/ L 1.78-5.38 (BEAKER) (test code = 670) LYMPHOCYTES ABSOLUTE COUNT 0.71 K/ L 1.32-3.57 L (BEAKER) (test code = 414) MONOCYTES ABSOLUTE COUNT (BEAKER) 0.53 K/ L 0.30-0.82 (test code = 415) EOSINOPHILS ABSOLUTE COUNT 0.24 K/ L 0.04-0.54 (BEAKER) (test code = 416) BASOPHILS ABSOLUTE COUNT (BEAKER) 0.04 K/ L 0.01-0.08 (test code = 417) IMMATURE GRANULOCYTES-RELATIVE 0 % 0-1 PERCENT (BEAKER) (test code = 2801) RAD, CHEST, 1 VIEW, NON [id number] 07:51:00While IABP in place and following each repositioning of IABPReason for exam:->While IABP in placeand following each repositioning of IABPShould this be performed at the bedside?->Yes [facility] [place] [facility] : 1960 Sex: MFINAL REPORT RAD, CHEST, 1 VIEW, NON DEPT INDICATION: While IABP in place and following each repositioning of IABP COMPARISON: Prior day's exam FINDINGS: Portable frontal view of the chest. IMPRESSION: Support Lines: Sternotomy wires Lungs and pleura: Diffuse bilateral interstitial thickening and left basilar airspace disease are slightly increased No pneumothorax.Heart and mediastinum: Stable contours.Additional findings: None. Signed: Sabiha Zee Verified Date/Time: 08/15/2020 07:51:39 Reading Location: [facility] Radiology Reading Room XR chest 1 view portable/[id number] 07:51:00 Interface, External Ris In - 08/15/2020 7:53 AM CSTFINAL REPORT RAD, CHEST, 1 VIEW, NON DEPT INDICATION: While IABP in place and following each repositioning of IABP COMPARISON:Prior day's exam FINDINGS: Portable frontal view of the chest. IMPRESSION: Support Lines: Sternotomy wires Lungs and pleura: Diffuse bilateral interstitial thickening and left basilar airspace disease are slightly increased No pneumothorax.Heart and mediastinum: Stable contours.Additional findings:None. Signed: Sabiha Zee Verified Date/Time: 08/15/2020 07:51:39 Reading Location: [facility] Radiology Reading Room [facility] W/PLT COUNT & AUTO [id number] 06:11:00 Test Item Value Reference Range Interpretation Comments WHITE BLOOD CELL COUNT (BEAKER) 5.9 K/ L 3.5-10.5 (test code = 775) RED BLOOD CELL COUNT (BEAKER) 2.77 M/ L 4.63-6.08 L (test code = 761) HEMOGLOBIN (BEAKER) (test code = 8.1 GM/DL 13.7-17.5 L 410) HEMATOCRIT (BEAKER) (test code = 26.4 % 40.1-51.0 L 411) MEAN CORPUSCULAR VOLUME (BEAKER) 95.3 fL 79.0-92.2 H (test code = 753) MEAN CORPUSCULAR HEMOGLOBIN 29.2 pg 25.7-32.2 (BEAKER) (test code = 751) MEAN CORPUSCULAR HEMOGLOBIN CONC 30.7 GM/DL 32.3-36.5 L (BEAKER) (test code = 752) RED CELL DISTRIBUTION WIDTH 15.5 % 11.6-14.4 H (BEAKER) (test code = 412) PLATELET COUNT (BEAKER) (test 195 K/CU MM 150-450 code = 756) MEAN PLATELET VOLUME (BEAKER) 11.0 fL 9.4-12.4 (test code = 754) NUCLEATED RED BLOOD CELLS 0 /100 WBC 0-0 (BEAKER) (test code = 413) NEUTROPHILS RELATIVE PERCENT 72 % (BEAKER) (test code = 429) LYMPHOCYTES RELATIVE PERCENT 13 % (BEAKER) (test code = 430) MONOCYTES RELATIVE PERCENT 11 % (BEAKER) (test code = 431) EOSINOPHILS RELATIVE PERCENT 3 % (BEAKER) (test code = 432) BASOPHILS RELATIVE PERCENT 1 % (BEAKER) (test code = 437) NEUTROPHILS ABSOLUTE COUNT 4.23 K/ L 1.78-5.38 (BEAKER) (test code = 670) LYMPHOCYTES ABSOLUTE COUNT 0.77 K/ L 1.32-3.57 L (BEAKER) (test code = 414) MONOCYTES ABSOLUTE COUNT (BEAKER) 0.63 K/ L 0.30-0.82 (test code = 415) EOSINOPHILS ABSOLUTE COUNT 0.19 K/ L 0.04-0.54 (BEAKER) (test code = 416) BASOPHILS ABSOLUTE COUNT (BEAKER) 0.05 K/ L 0.01-0.08 (test code = 417) IMMATURE GRANULOCYTES-RELATIVE 1 % 0-1 PERCENT (BEAKER) (test code = 2801) [id number] 05:54:00 Test Item Value Reference Range Interpretation Comments MAGNESIUM (BEAKER) 2.0 mg/dL 1.6-2.6 Specimen slightly (test code = 627) hemolyzed 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 ID - BSBASIC METABOLIC [id number] 05:54:00 Test Item Value Reference Range Interpretation Comments SODIUM (BEAKER) 132 meq/L 136-145 L (test code = 381) POTASSIUM (BEAKER) 3.9 meq/L 3.5-5.1 Specimen slightly (test code = 379) hemolyzed CHLORIDE (BEAKER) 98 meq/L 98-107 (test code = 382) CO2 (BEAKER) (test 22 meq/L 22-29 code = 355) BLOOD UREA NITROGEN 13 mg/dL 7-21 (BEAKER) (test code = 354) CREATININE (BEAKER) 0.94 mg/dL 0.57-1.25 Specimen slightly (test code = 358) hemolyzed GLUCOSE RANDOM 115 mg/dL 70-105 H (BEAKER) (test code = 652) CALCIUM (BEAKER) 8.8 mg/dL 8.4-10.2 (test code = 697) EGFR (BEAKER) (test 81 mL/min/1.73 ESTIMA ROSA ISELA GFR IS code = 1092) sq m NOT ACCURATE CREATININE CLEARANCE IN PREDICTING GLOMERULAR FILTRATION RATE . ESTIMATED GFR I S NOT APPLICABLE FOR DIALYSIS PATIEN TS. 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 Estimated LVEF by qualitative assessment is lower limits of normal (50-55%). The following segment(s) appear hypokinetic: basal to mid inferoseptum . The following segment(s) appear dyskinetic: basal to mid inferior . LA size is normal (16-34 ml/m2) . Grade 1 diastolic dysfunction (impaired relaxation and low-normal LA pressure). Unable to estimate peak systolic PA pressure; inadequate TR velocity signal. The estimated RA pressure by IVC dynamics 5-10mmHg . A small loculated pericardial effusion is suspected anterior to RV based on limited views . Previous Study In comparison with the prior exam 07/17/2020 the following changes are noted: low normal LV systolic function with basal to mid inferior and inferoseptal wall motion abnormalities(see above) . Signature Findings Left Ventricle Global LV systolic function lower limits of normal . Estimated LVEF by qualitative assessment is lower limits of normal (50-55%) . Quantitative assessment of LV ejection fraction limited by apical foreshortening. No evidence of LV hypertrophy. The left ventricleis chamber size (by PSLAX dimension) is normal (male - LVIDd 4.2-5.8cm) . The following segment(s) appear hypokinetic: basal to mid inferoseptum . The following segment(s) appear dyskinetic: basal to mid inferior . The other segments contract normally. Grade 1 diastolic dysfunction (impaired relaxation and low-normal LA pressure). Left Atrium LA size is normal (16-34 ml/m2) . Right Ventricle The right ventricular chamber size and systolic function are within normal limits. Right Atrium RA size is probably normal based on available views. Aortic Valve Mild AoV cusp thickening. Mitral Valve Mild MV leaflet thickening. Tricuspid Valve TV structure is normal. Unable to estimate peak systolic PA pressure; inadequate TR velocity signal. Pulmonic Valve PV is not well visualized. Aorta Proximal ascending aorta size is indeterminate (not well seen) . Pericardium A small pericardial effusion is suspected basedon limited views . The pericardial effusion appears possibly loculated anterior to RV . IVC/SVC/PA/PV/Pleural The estimated RA pres sure by IVC dynamics 5-10mmHg . Chambers/Structures Left Atrium LA Volume: 66.98 ml LA Area: 21.25 cm^2 LA Vol. Index: 32 ml/m^2 Left Ventricle LVIDd: 3.97cm LVEDV:68.79 ml LV Septum Diastolic: 1.11 cm LV PW Diastolic: 1.09 cm LVOT Diameter: 2.05 cm Right Ventricle RVOT VTI: 18.81 cm Doppler/Quantitative Measurements Mitral Valve MV Peak E-Wave: 0.49 m/s MV Peak A-Wave: 0.69 m/s E/A Ratio: 0.71 Peak Gradient: 0.97 mmHg Deceleration Time: 166.6 msec MV Howard. Peak: Tissue Doppler E' Septal Velocity: 0.07 m/s E' Lateral Velocity: 0.06 m/s Aortic Valve Peak Velocity: 0.8 m/s Mean Velocity: 0.55 m/s Peak Gradient: 2.59 mmHg Mean Gradient: 1.38 mmHg AV Area (continuity): 2.77 cm^2 AV VTI: 13.84 cm AV DVI: 0.84 LVOT Peak Velocity: 0.69 m/s Peak Gradient: 1.9 mmHg Mean Velocity: 0.44 m/s Mean Gradient: 0.93 mmHg LVOT Diameter: 2.05 cm LVOT VTI: 11.63 cm LVOT Area: 3.3 cm^2 LVOT SV:38.37 ml LVOTCO: 3.26 l/min LVOT CI: 1.54 l/min/m^2CShriners Hospitals for Children Northern CaliforniaMAGNESIUM2020-11-10 10:27:00 Test Item Value Reference Range Interpretation Comments MAGNESIUM (BEAKER) (test code = 2.0 mg/dL 1.6-2.6 627) 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 ID - MAIDA FOperator ID - MAIDA FBASIC METABOLIC [id number] 06:28:00 Test Item Value Reference Range Interpretation Comments SODIUM (BEAKER) 132 meq/L 136-145 L (test code = 381) POTASSIUM (BEAKER) 3.6 meq/L 3.5-5.1 (test code = 379) CHLORIDE (BEAKER) 98 meq/L 98-107 (test code = 382) CO2 (BEAKER) (test 24 meq/L 22-29 code = 355) BLOOD UREA NITROGEN 16 mg/dL 7-21 (BEAKER) (test code = 354) CREATININE (BEAKER) 0.95 mg/dL 0.57-1.25 (test code = 358) GLUCOSE RANDOM 118 mg/dL 70-105 H (BEAKER) (test code = 652) CALCIUM (BEAKER) 8.3 mg/dL 8.4-10.2 L (test code = 697) EGFR (BEAKER) (test 80 mL/min/1.73 ESTIMA ROSA ISELA GFR IS code = 1092) sq m NOT ACCURATE CREATININE CLEARANCE IN PREDICTING GLOMERULAR FILTRATION RATE . ESTIMATED GFR I S NOT APPLICABLE FOR DIALYSIS PATIEN TS. 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 [facility] WOLFE [facility] [id number] 06:27:00 Test Item Value Reference Range Interpretation Comments Troponin I (test code = 2.17 ng/mL 0-0.03 [place] [address]-8) SHERON (test code = SHERON) Troponin I [...] neurological disease, and persistent tachyarrhythmia.Opera tor ID Adam WOLFE M Lab Interpretation (test Abnormal code = 61753-3) [facility] [id number] 06:27:00 Test Item Value Reference Range Interpretation Comments TROPONIN I (BEAKER) (test code = 2.17 ng/mL 0.00-0.03 397) Troponin I (TnI) levels [...] failure, acidosis, acute neurological disease, and persistent tachyarrhythmia.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 REESE WOLFE [facility] W/PLT COUNT & AUTO [id number] 05:49:00 Test Item Value Reference Range Interpretation Comments WHITE BLOOD CELL COUNT (BEAKER) 6.4 K/ L 3.5-10.5 (test code = 775) RED BLOOD CELL COUNT (BEAKER) 2.75 M/ L 4.63-6.08 L (test code = 761) HEMOGLOBIN (BEAKER) (test code = 8.1 GM/DL 13.7-17.5 L 410) HEMATOCRIT (BEAKER) (test code = 26.3 % 40.1-51.0 L 411) MEAN CORPUSCULAR VOLUME (BEAKER) 95.6 fL 79.0-92.2 H (test code = 753) MEAN CORPUSCULAR HEMOGLOBIN 29.5 pg 25.7-32.2 (BEAKER) (test code = 751) MEAN CORPUSCULAR HEMOGLOBIN CONC 30.8 GM/DL 32.3-36.5 L (BEAKER) (test code = 752) RED CELL DISTRIBUTION WIDTH 15.9 % 11.6-14.4 H (BEAKER) (test code = 412) PLATELET COUNT (BEAKER) (test 192 K/CU MM 150-450 code = 756) MEAN PLATELET VOLUME (BEAKER) 10.9 fL 9.4-12.4 (test code = 754) NUCLEATED RED BLOOD CELLS 0 /100 WBC 0-0 (BEAKER) (test code = 413) NEUTROPHILS RELATIVE PERCENT 65 % (BEAKER) (test code = 429) LYMPHOCYTES RELATIVE PERCENT 21 % (BEAKER) (test code = 430) MONOCYTES RELATIVE PERCENT 11 % (BEAKER) (test code = 431) EOSINOPHILS RELATIVE PERCENT 2 % (BEAKER) (test code = 432) BASOPHILS RELATIVE PERCENT 1 % (BEAKER) (test code = 437) NEUTROPHILS ABSOLUTE COUNT 4.13 K/ L 1.78-5.38 (BEAKER) (test code = 670) LYMPHOCYTES ABSOLUTE COUNT 1.34 K/ L 1.32-3.57 (BEAKER) (test code = 414) MONOCYTES ABSOLUTE COUNT (BEAKER) 0.70 K/ L 0.30-0.82 (test code = 415) EOSINOPHILS ABSOLUTE COUNT 0.15 K/ L 0.04-0.54 (BEAKER) (test code = 416) BASOPHILS ABSOLUTE COUNT (BEAKER) 0.05 K/ L 0.01-0.08 (test code = 417) IMMATURE GRANULOCYTES-RELATIVE 0 % 0-1 PERCENT (BEAKER) (test code = 2801) RAD, CHEST, 1 VIEW, NON [id number] 04:53:00While IABP in place and following each repositioning of IABPReason for exam:->While IABP in placeand following each repositioning of IABPShould this be performed at the bedside?->Yes [facility] [place] [facility] : 1960 Sex: MFINAL REPORT RAD, CHEST, 1 VIEW, NON DEPT INDICATION: While IABP in place and following each repositioning of IABP COMPARISON: Prior day's exam FINDINGS: Portable frontal view of the chest. IMPRESSION: Support Lines: Intra-articular: Pump superior marker terminates 2.5 cm below the superior aspect of the aortic knob. Lungs and pleura: Unchanged airspace and pleural opacities. No pneumothorax.Heart and mediastinum: Stable contours. Stable surgical changes.Additional findings: None. Signed: Maddie Ibrahimback[facility] Verified Date/Time: 08/14/2020 04:53:24 [id number] 03:01:00 Test Item Value Reference Range Interpretation Comments PTT (test code = 40.3 See_Comment H [Automated message] 41336-4) The system OBOOK generated this result transmitted ref erence range: 22.5 - 3 6.0 seconds. The reference range was not used to int erpret this result as normal/abnormal . Lab Interpretation (test Abnormal code = 37148-8) [facility]00 Test Item Value Reference Range Interpretation Comments PARTIAL THROMBOPLASTIN TIME 40.3 seconds 22.5-36.0 H (BEAKER) (test code = 760) [id number] 19:46:00 Test Item Value Reference Range Interpretation Comments PARTIAL THROMBOPLASTIN TIME 27.3 seconds 22.5-36.0 (BEAKER) (test code = 760) Platelet [id number] 19:38:00 Test Item Value Reference Range Interpretation Comments Platelets (test code = 218 See_Comment [Aut omated message] 777-3) The system OBOOK generated this result transmitted ref erence range: 150 - 45 0 K/CU MM. The referen ce range was not u sed to interpret this result as normal/abnor mal. Lab Interpretation (test Normal code = 76646-1) [facility] W/PLT COUNT & AUTO [id number] 19:38:00 Test Item Value Reference Range Interpretation Comments WHITE BLOOD CELL COUNT (BEAKER) 7.8 K/ L 3.5-10.5 (test code = 775) RED BLOOD CELL COUNT (BEAKER) 2.90 M/ L 4.63-6.08 L (test code = 761) HEMOGLOBIN (BEAKER) (test code = 8.8 GM/DL 13.7-17.5 L 410) HEMATOCRIT (BEAKER) (test code = 27.2 % 40.1-51.0 L 411) MEAN CORPUSCULAR VOLUME (BEAKER) 93.8 fL 79.0-92.2 H (test code = 753) MEAN CORPUSCULAR HEMOGLOBIN 30.3 pg 25.7-32.2 (BEAKER) (test code = 751) MEAN CORPUSCULAR HEMOGLOBIN CONC 32.4 GM/DL 32.3-36.5 (BEAKER) (test code = 752) RED CELL DISTRIBUTION WIDTH 15.9 % 11.6-14.4 H (BEAKER) (test code = 412) PLATELET COUNT (BEAKER) (test 218 K/CU MM 150-450 code = 756) MEAN PLATELET VOLUME (BEAKER) 10.4 fL 9.4-12.4 (test code = 754) NUCLEATED RED BLOOD CELLS 0 /100 WBC 0-0 (BEAKER) (test code = 413) NEUTROPHILS RELATIVE PERCENT 64 % (BEAKER) (test code = 429) LYMPHOCYTES RELATIVE PERCENT 21 % (BEAKER) (test code = 430) MONOCYTES RELATIVE PERCENT 13 % (BEAKER) (test code = 431) EOSINOPHILS RELATIVE PERCENT 1 % (BEAKER) (test code = 432) BASOPHILS RELATIVE PERCENT 1 % (BEAKER) (test code = 437) NEUTROPHILS ABSOLUTE COUNT 5.00 K/ L 1.78-5.38 (BEAKER) (test code = 670) LYMPHOCYTES ABSOLUTE COUNT 1.59 K/ L 1.32-3.57 (BEAKER) (test code = 414) MONOCYTES ABSOLUTE COUNT (BEAKER) 0.99 K/ L 0.30-0.82 H (test code = 415) EOSINOPHILS ABSOLUTE COUNT 0.09 K/ L 0.04-0.54 (BEAKER) (test code = 416) BASOPHILS ABSOLUTE COUNT (BEAKER) 0.06 K/ L 0.01-0.08 (test code = 417) IMMATURE GRANULOCYTES-RELATIVE 0 % 0-1 PERCENT (BEAKER) (test code = 2801) PLATELET [id number] 19:38:00 Test Item Value Reference Range Interpretation Comments PLATELET COUNT (BEAKER) (test 218 K/CU MM 150-450 code = 756) Prepare [id number] 16:30:00 Test Item Value Reference Range Interpretation Comments Unit ABO (test code = O Pos 7425241) UNIT NUMBER (test code = [id number] 934-0) Status (test code = 3840462) READY Blood Bank Product (test code RED BLOOD CELLS = 2263) PRODUCT CODE (test code = N5036W47 933-2) CROSSMATCH (test code = 2264) [facility]Asymptomatic ONLY)2020-08-13 16:30:00 Test Item Value Reference Range Interpretation Comments SARS-COV2/RT-PCR Negative Not Detected, (test code = Negative, See 60105-7) external report for linked test SARS-COV-2 [facility] (test code = 54144-7) SHERON (test code = Negative result for this SHERON) test determines that SARS-CoV-2 RNA was not present in the specimen above the Limit of Detection (LOD). However, Negative results do not preclude SARS-CoV-2 infection and should not be used as the sole basis for treatment or patient management decisions. Negative results must be combined with clinical observations, patient history, and epidemiological information. A false negative result may occur if a specimen is improperly collected, transported or handled. A false negative result should be considered if patient's recent exposures or clinical presentation indicate that COVID-19 (SARS-CoV-2) is likely and diagnostic tests for other causes of illness are negative. Re-testing should be considered in cases of suspected false negatives. The limit of detection for this assay is 100 copies/mL. This SARS CoV-2 test is a real-time RT-PCR test intended for the qualitative detection of nucleic acid from SARS-CoV-2 in a nasopharyngeal swab specimen collected from individuals suspected of COVID-19 by their healthcare provider. This test has not been Food and Drug Administration (FDA) cleared or approved. This is a modified version of an approved Emergency Use Authorization (EUA) and is in the process of review by the FDA. Once authorized by the FDA, the issued EUA will be effective until the declaration that circumstances exist justifying the authorization of the emergency use of in vitro diagnostic tests for detection and/or diagnosis of COVID-19 is terminated under Section 564(b)(2) of the Act or the EUA is revoked under Section 564(g) of the Act. Testing was performed using the [employer] SARS-CoV-2 assay. Fact Sheet for Healthcare Providers:https://www.FiTeq/barak/RT_SA MV-TxF-6_QZY_Oslk_Olbik_ 51-994143.pdf Fact Sheet for Healthcare Patients:https://www.Infrascale/barak/RT_SAR O-VpJ-5_Tjixbuu_Dvug_Omo et_EN_51-780992J6.pdf Performing Laboratory:[place] [address] [address]ARS-COV2/RT-PCR ([facility])2020-08-13 16:30:00 Test Item Value Reference Range Interpretation Comments SARS-COV2/RT-PCR (test Negative Not Detected, Negative, code = 2879214) See external report for linked test SARS-COV-[address] [facility] (test code = 0915238) Negative result for this test determines that SARS-CoV-2 RNA was not present in the specimen above the Limit of Detection (LOD). However, Negative results do not preclude SARS-CoV-2 infection and should not be used as the sole basis for treatment or patient management decisions. Negative results mustbe combined with clinical observations, patient history, and epidemiological information. A false negative result may occur if a specimen is improperly collected, transported or handled. A false negative result should be considered if patient's recent exposures or clinical presentation indicate that COVID-19 (SARS-CoV-2) is likely and diagnostic tests for other causes of illness are negative. Re-testing should be considered in cases of suspected false negatives.The limit of detection for this assay is 100 copies/mL.This SARS CoV-2 test is a real-time RT-PCR test intended for the qualitative detection of nucleic acid from SARS-CoV-2 in a nasopharyngeal swab specimen collected from individuals susp ected of COVID-19 by their healthcare provider.This test has not been Food and Drug Administration (FDA) cleared or approved. This is a modified version of an approved Emergency Use Authorization (EUA) and is in the process of review by the FDA. Once authorized by the FDA, the issued EUA will be effective until the declaration that circumstances exist justifying the authorization of the emergency use of in vitro diagnostic tests for detection and/or diagnosis of COVID-19 is terminated under Section 564(b)(2) of the Act or the EUA is revoked under Section 564(g) of the Act.Testing was performed using the [employer] SARS-CoV-2 assay.Fact Sheet for Healthcare Providers:https://www.Emair.flores/barak/ DN_NTJB-UyY-7_OUH_Ackw_Mqfwj_25-139954.pdfFact Sheet for Healthcare Patients:https://www.Emair.Elevate Digital juan/barak/KN_QFQP-HkB-0_Otbepgf_Bkzy_Iungs_VF_91-182028Q0.pdfPerforming Laboratory:[facility] [place] [address] 80178DWT 12 [id number] 14:27:36Interface, External Ris In - 08/13/2020 2:27 PM CSTVentricular Rate 83 BPMAtrial Rate 83 BPMP-R Interval 206 msQRS Duration 84 msQ-T Interval 410 msQTC Calculation(Bazett) 481 msP [place] 40 degreesR [place] 12 degreesT [place] [address] and T wave abnormalityProlonged QTAbnormal ECGWhen compared with ECG of 11-JUL-2020 13:32,ST now depressed in Anterior leadsT wave inversion no longer evident in IIIT wave inversion now evident in the anterolateral leadsQT has lengthenedCon firmed by MD YAMILE, LORRAINE ([id number]) on 08/13/2020 2:27:32 [facility] ACTIVATED CLOTTING [id number] 11:41:00 Test Item Value Reference Range Interpretation Comments Activated Clotting Time 114 sec : 74 -137 seconds, (test code = 441) Baseline: TESTED AT [facility] [address] [facility], [address]: 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/Techni norah ID = [id number] for HEYDI COVARRUBIAS [facility]POCT-[id number] 11:41:00 Test Item Value Reference Range Interpretation Comments ACTIVATED CLOTTING TIME 114 sec : 74 -137 seconds, (BEAKER) (test code = Baseli ne: TESTED AT 441) [facility] [address] [facility], [address]: 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/Techni norah ID = [id number] for HEYDI COVARRUBIAS Antibody [id number] 09:29:00 Test Item Value Reference Range Interpretation Comments ANTIBODY ID ([facility]) (test code = Anti-Jka 2253) [facility]TR[facility] [id number] 03:52:00 Test Item Value Reference Range Interpretation Comments TROPONIN I (BEAKER) (test code = 5.58 ng/mL 0.00-0.03 397) Troponin I (TnI) levels [...] failure, acidosis, acute neurological disease, and persistent tachyarrhythmia.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 ID - YANETH [id number] 02:59:00 Test Item Value Reference Range Interpretation Comments PARTIAL THROMBOPLASTIN TIME 143.9 seconds 22.5-36.0 H (BEAKER) (test code = 760) Prior to initiating [id number] 02:50:00 Test Item Value Reference Range Interpretation Comments Fibrinogen (test code = 334 mg/dl 215-555 4285-7) SHERON (test code = SHERON) Prior to initiating heparin Lab Interpretation (test Normal code = 83156-6) [facility]FIB[facility]INOGEN2020-[facility]-09 02:50:00 Test Item Value Reference Range Interpretation Comments FIBRINOGEN LEVEL (BEAKER) (test 334 mg/dl 225-434 code = 658) Prior to initiating heparinBASIC METABOLIC [id number] 02:49:00 Test Item Value Reference Range Interpretation Comments SODIUM (BEAKER) 137 meq/L 136-145 (test code = 381) POTASSIUM (BEAKER) 4.4 meq/L 3.5-5.1 (test code = 379) CHLORIDE (BEAKER) 104 meq/L 98-107 (test code = 382) CO2 (BEAKER) (test 18 meq/L 22-29 L code = 355) BLOOD UREA NITROGEN 17 mg/dL 7-21 (BEAKER) (test code = 354) CREATININE (BEAKER) 1.23 mg/dL 0.57-1.25 (test code = 358) GLUCOSE RANDOM 174 mg/dL 70-105 H (BEAKER) (test code = 652) CALCIUM (BEAKER) 8.5 mg/dL 8.4-10.2 (test code = 697) EGFR (BEAKER) (test 60 mL/min/1.73 ESTIMA ROSA ISELA GFR IS code = 1092) sq m NOT ACCURATE CREATININE CLEARANCE IN PREDICTING GLOMERULAR FILTRATION RATE . ESTIMATED GFR I S NOT APPLICABLE FOR DIALYSIS PATIEN TS. 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 ID - YANETH [id number] 02:49:00 Test Item Value Reference Range Interpretation Comments MAGNESIUM (BEAKER) (test code = 1.5 mg/dL 1.6-2.6 L 627) 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 ID - YANETH [facility] W/PLT COUNT & AUTO [id number] 02:45:00 Test Item Value Reference Range Interpretation Comments WHITE BLOOD CELL COUNT (BEAKER) 10.5 K/ L 3.5-10.5 (test code = 775) RED BLOOD CELL COUNT (BEAKER) 3.59 M/ L 4.63-6.08 L (test code = 761) HEMOGLOBIN (BEAKER) (test code = 10.7 GM/DL 13.7-17.5 L 410) HEMATOCRIT (BEAKER) (test code = 34.0 % 40.1-51.0 L 411) MEAN CORPUSCULAR VOLUME (BEAKER) 94.7 fL 79.0-92.2 H (test code = 753) MEAN CORPUSCULAR HEMOGLOBIN 29.8 pg 25.7-32.2 (BEAKER) (test code = 751) MEAN CORPUSCULAR HEMOGLOBIN CONC 31.5 GM/DL 32.3-36.5 L (BEAKER) (test code = 752) RED CELL DISTRIBUTION WIDTH 15.3 % 11.6-14.4 H (BEAKER) (test code = 412) PLATELET COUNT (BEAKER) (test 294 K/CU MM 150-450 code = 756) MEAN PLATELET VOLUME (BEAKER) 11.0 fL 9.4-12.4 (test code = 754) NUCLEATED RED BLOOD CELLS 0 /100 WBC 0-0 (BEAKER) (test code = 413) NEUTROPHILS RELATIVE PERCENT 85 % (BEAKER) (test code = 429) LYMPHOCYTES RELATIVE PERCENT 9 % (BEAKER) (test code = 430) MONOCYTES RELATIVE PERCENT 5 % (BEAKER) (test code = 431) EOSINOPHILS RELATIVE PERCENT 1 % (BEAKER) (test code = 432) BASOPHILS RELATIVE PERCENT 1 % (BEAKER) (test code = 437) NEUTROPHILS ABSOLUTE COUNT 8.91 K/ L 1.78-5.38 H (BEAKER) (test code = 670) LYMPHOCYTES ABSOLUTE COUNT 0.89 K/ L 1.32-3.57 L (BEAKER) (test code = 414) MONOCYTES ABSOLUTE COUNT (BEAKER) 0.49 K/ L 0.30-0.82 (test code = 415) EOSINOPHILS ABSOLUTE COUNT 0.06 K/ L 0.04-0.54 (BEAKER) (test code = 416) BASOPHILS ABSOLUTE COUNT (BEAKER) 0.08 K/ L 0.01-0.08 (test code = 417) IMMATURE GRANULOCYTES-RELATIVE 0 % 0-1 PERCENT (BEAKER) (test code = 2801) RAD, CHEST, 1 VIEW, NON [id number] 02:40:00While IABP in place and following each repositioning of IABPReason for exam:->While IABP in placeand following each repositioning of IABPShould this be performed at the bedside?->Yes [facility] [place] [facility] : 1960 Sex: MFINAL REPORT RAD, CHEST, 1 VIEW, NON DEPT INDICATION: While IABP in place and following each repositioning of IABP COMPARISON: 07/31/2020 FINDINGS: Portable frontal view of the chest. IMPRESSION: Support Lines: The intra- aortic balloon pump marker is 1.4 cm caudal to the superior margin of the aortic arch. Lungs and pleura: Pulmonary venous vasculature congestion similar to previous with slightly increased bibasilar hazy airspace opacities suggestive of edema. Trace bilateral pleural effusion effusions are suspected. No pneumothorax.Heart and mediastinum: Stable contours.Additional findings: None. Signed: Ciro Ruvalcaba MDReport Verified Date/Time: 08/13/2020 02:40:42 Type and screen, [id number] 23:17:00 Test Item Value Reference Range Interpretation Comments ABO/RH AUTOMATED (BEAKER) (test O POSITIVE code = 2260) Ab Scrn (test code = 890-4) POSITIVE [facility]POCT-[id number] 21:27:00 Test Item Value Reference Range Interpretation Comments ACTIVATED CLOTTING TIME 307 sec : 74 -137 seconds, (BEAKER) (test code = Baseli ne: TESTED AT [address]) [facility] [address] [facility], [address]: 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/Techni norah ID = [id number] for PEPE Diaz [id number] 21:01:00 Test Item Value Reference Range Interpretation Comments ACTIVATED CLOTTING TIME 235 sec : 74 -137 seconds, (BEAKER) (test code = Baseli ne: TESTED AT 441) [facility] [address] [facility], [address]: 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/Techni norah ID = [id number] for HI RICHELLE, BERNADETTE TROPONIN [id number] 19:47:00 Test Item Value Reference Range Interpretation Comments TROPONIN I (BEANISA) (test code = 4.13 ng/mL 0.00-0.03 397) Troponin I (TnI) levels [...] failure, acidosis, acute neurological disease, and persistent tachyarrhythmia.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 ID - DBPT/[id number] 19:35:00 Test Item Value Reference Interpretation Comments Range Protime (test code = 13.0 See_Comment [Autom ated 5742-2) message] The system which generated this result transmitted reference range : 11.9 - 14.2 seconds. The reference range was not used to interpret this result as normal/abnormal . INR (test code = 1.01 See_Comment [Automated 5346-6) message] The system which generated this result transmitted reference range : <=5.90. The reference range was not used to interpret this result as normal/abnormal . PTT (test code = 28.3 See_Comment [Automated 85643-6) message] The system which generated this result transmitted reference range : 22.5 - 36.0 seconds. The reference range was not used to interpret this result as normal/abnormal . SHERON (test code = Effective 03/02/2019: SHERON) PT Reference Range ChangeNew: 11.9-14.2 Previous: 11.7-14.7 RECOMMENDED COUMADIN/WARFARIN INR THERAPY RANGESSTANDARD DOSE: 2.0-3.0 Includes: PROPHYLAXIS for venous thrombosis, systemic embolization; TREATMENT for venous thrombosis and/or pulmonary embolus.HIGH RISK: Target INR is 2.5-3.5 for patients wiht mechanical heart valves. Lab Interpretation Normal (test code = 87391-5) [facility] HospitalPT/[id number] 19:35:00 Test Item Value Reference Range Interpretation Comments PROTIME (BEAKER) (test code = 13.0 seconds 11.9-14.2 759) INR (BEAKER) (test code = 370) 1.01 <=5.90 PARTIAL THROMBOPLASTIN TIME 28.3 seconds 22.5-36.0 (BEAKER) (test code = 760) Effective 03/02/2019: PT Reference Range ChangeNew: 11.9-14.2 Previous: 11.7- 14.7RECOMMENDED COUMADIN/WARFARIN INR THERAPY RANGESSTANDARD DOSE: 2.0-3.0 Includes: PROPHYLAXIS for venous thrombosis, systemic embolization; TREATMENT for venous thrombosis and/or pulmonary embolus.HIGH RISK: Target INR is2.5-3.5 for patients wiht mechanical heart valves.BASIC METABOLIC [id number] 19:35:00 Test Item Value Reference Range Interpretation Comments SODIUM (BEAKER) 140 meq/L 136-145 (test code = 381) POTASSIUM (BEAKER) 4.3 meq/L 3.5-5.1 (test code = 379) CHLORIDE (BEAKER) 107 meq/L 98-107 (test code = 382) CO2 (BEAKER) (test 24 meq/L 22-29 code = 355) BLOOD UREA NITROGEN 16 mg/dL 7-21 (BEAKER) (test code = 354) CREATININE (BEAKER) 1.22 mg/dL 0.57-1.25 (test code = 358) GLUCOSE RANDOM 117 mg/dL 70-105 H (BEAKER) (test code = 652) CALCIUM (BEAKER) 8.7 mg/dL 8.4-10.2 (test code = 697) EGFR (BEAKER) (test 60 mL/min/1.73 ESTIMA ROSA ISELA GFR IS code = 1092) sq m NOT ACCURATE CREATININE CLEARANCE IN PREDICTING GLOMERULAR FILTRATION RATE . ESTIMATED GFR I S NOT APPLICABLE FOR DIALYSIS PATIEN TS. 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 ID - DBProthrombin time/[id number] 19:34:00 Test Item Value Reference Interpretation Comments Range Protime (test code = 13.0 See_Comment [Autom ated 4262-2) message] The system which generated this result transmitted reference range : 11.9 - 14.2 seconds. The reference range was not used to interpret this result as normal/abnormal . INR (test code = 1.01 See_Comment [Automated 9251-6) message] The system which generated this result transmitted reference range : <=5.90. The reference range was not used to interpret this result as normal/abnormal . SHERON (test code = Effective 03/02/2019: SHERON) PT Reference Range ChangeNew: 11.9-14.2 Previous: 11.7-14.7 RECOMMENDED COUMADIN/WARFARIN INR THERAPY RANGESSTANDARD DOSE: 2.0-3.0 Includes: PROPHYLAXIS for venous thrombosis, systemic embolization; TREATMENT for venous thrombosis and/or pulmonary embolus.HIGH RISK: Target INR is 2.5-3.5 for patients wiht mechanical heart valves. Lab Interpretation Normal (test code = 99656-9) [facility] HospitalPROTHROMBIN TIME/[id number] 19:34:00 Test Item Value Reference Range Interpretation Comments PROTIME (BEAKER) (test code = 13.0 seconds 11.9-14.2 759) INR (BEAKER) (test code = 370) 1.01 <=5.90 Effective 03/02/2019: PT Reference Range ChangeNew: 11.9-14.2 Previous: 11.7- 14.7RECOMMENDED COUMADIN/WARFARIN INR THERAPY RANGESSTANDARD DOSE: 2.0-3.0 Includes: PROPHYLAXIS for venous thrombosis, systemic embolization; TREATMENT for venous thrombosis and/or pulmonary embolus.HIGH RISK: Target INR is2.5-3.5 for patients wiht mechanical heart valves.Lactic acid, [id number] 19:33:00 Test Item Value Reference Range Interpretation Comments Lactate, Venous (test 1.60 mmol/L 0.5-2.2 Specim en code = 2872) slightly hemolyzed SHERON (test code = SHERON) 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 ID - DB Lab Interpretation Normal (test code = 77680-6) [facility] HospitalLACTIC ACID, [id number] 19:33:00 Test Item Value Reference Range Interpretation Comments LACTATE BLOOD VENOUS 1.60 mmol/L 0.50-2.20 Specime n slightly (2) (BEAKER) (test hemolyzed code = 2872) 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 ID - DBCBC W/PLT COUNT & AUTO [id number] 19:22:00 Test Item Value Reference Range Interpretation Comments WHITE BLOOD CELL COUNT (BEAKER) 9.8 K/ L 3.5-10.5 (test code = 775) RED BLOOD CELL COUNT (BEAKER) 4.31 M/ L 4.63-6.08 L (test code = 761) HEMOGLOBIN (BEAKER) (test code = 12.5 GM/DL 13.7-17.5 L 410) HEMATOCRIT (BEAKER) (test code = 41.3 % 40.1-51.0 411) MEAN CORPUSCULAR VOLUME (BEAKER) 95.8 fL 79.0-92.2 H (test code = 753) MEAN CORPUSCULAR HEMOGLOBIN 29.0 pg 25.7-32.2 (BEAKER) (test code = 751) MEAN CORPUSCULAR HEMOGLOBIN CONC 30.3 GM/DL 32.3-36.5 L (BEAKER) (test code = 752) RED CELL DISTRIBUTION WIDTH 15.5 % 11.6-14.4 H (BEAKER) (test code = 412) PLATELET COUNT (BEAKER) (test 303 K/CU MM 150-450 code = 756) MEAN PLATELET VOLUME (BEAKER) 10.8 fL 9.4-12.4 (test code = 754) NUCLEATED RED BLOOD CELLS 0 /100 WBC 0-0 (BEAKER) (test code = 413) NEUTROPHILS RELATIVE PERCENT 78 % (BEAKER) (test code = 429) LYMPHOCYTES RELATIVE PERCENT 13 % (BEAKER) (test code = 430) MONOCYTES RELATIVE PERCENT 7 % (BEAKER) (test code = 431) EOSINOPHILS RELATIVE PERCENT 1 % (BEAKER) (test code = 432) BASOPHILS RELATIVE PERCENT 1 % (BEAKER) (test code = 437) NEUTROPHILS ABSOLUTE COUNT 7.67 K/ L 1.78-5.38 H (BEAKER) (test code = 670) LYMPHOCYTES ABSOLUTE COUNT 1.23 K/ L 1.32-3.57 L (BEAKER) (test code = 414) MONOCYTES ABSOLUTE COUNT (BEAKER) 0.67 K/ L 0.30-0.82 (test code = 415) EOSINOPHILS ABSOLUTE COUNT 0.12 K/ L 0.04-0.54 (BEAKER) (test code = 416) BASOPHILS ABSOLUTE COUNT (BEAKER) 0.10 K/ L 0.01-0.08 H (test code = 417) IMMATURE GRANULOCYTES-RELATIVE 1 % 0-1 PERCENT (BEAKER) (test code = 2801) [id number] 00:00:00Ordered by an unspecified provider.[facility] HospitalRAD, CHEST, 2 [id number] 13:16:00Reason for Exam:- >postsurgical follow up [facility] [place] [facility] : 1960 Sex: MFINAL REPORT INDICATION: postsurgical follow up COMPARISON: None JAMISON HNIQUE: Frontal and lateral views of the chest. FINDINGS: Lungs and pleura: Clear lungs. No effusion.Heart and mediastinum: Normal heart size. Unremarkable mediastinal contours.Osseous structures: No acute abnormality.Additional findings: None. IMPRESSION: No acute intrathoracic abnormality. Signed: Sabiha Weaver Verified Date/Time: 07/31/2020 13:16:51 Reading Location: [facility] Radiology Reading Room XR chest 2 [id number] 13:16:00 Interface, External Ris In - 07/31/2020 1:19 PM CDTFINAL REPORT INDICATION: postsurgical follow up COMPARISON: None TECHNIQUE: Frontal and lateral views of the chest. FINDINGS: Lungs and pleura: Clear lungs. No effusion.Heart and mediastinum: Normal heart size. Unremarkable mediastinal contours.Osseous structures: No acute abnormality.Additional findings: None. IMPRESSION: Noacute intrathoracic abnormality. Signed: Sabiha Zee Verified Date/Time: 07/31/2020 13:16:51 Reading Location: [facility] Radiology Reading Room [facility] - SCAN 2020-07-27 12:48:59Ordered by an unspecified provider.[facility] HospitalPOC-Glucose [id number] 11:26:00 Test Item Value Reference Range Interpretation Comments POC-Glucose Meter (test 118 mg/dL 70-110 H : TE STED AT [facility] code = 1538) [address] [facility], [address]: 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/Techni norah ID = [id number] for EDITH KAY Lab Interpretation (test Abnormal code = 47983-9) [facility] HospitalPOCT-GLUCOSE [id number] 11:26:00 Test Item Value Reference Range Interpretation Comments POC-GLUCOSE METER 118 mg/dL 70-110 H : [facility] (BEAKER) (test [facility] = [facility], 1538) [address]: 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/Techni norah ID = [id number] for EDITH KAY POCT-GLUCOSE [id number] 09:19:00 Test Item Value Reference Range Interpretation Comments POC-GLUCOSE METER 106 mg/dL 70-110 : [facility] (BEAKER) (test code = [facility], 1538) [address]: 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/Techni norah ID = [id number] for EDITH KAY BASIC METABOLIC [id number] 06:55:00 Test Item Value Reference Range Interpretation [...] S NOT APPLICABLE FOR DIALYSIS PATIEN TS. 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 ID - YANETH [id number] 06:55:00 Test Item Value Reference Range Interpretation Comments MAGNESIUM (BEAKER) (test code = 1.8 mg/dL 1.6-2.6 627) 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 ID - YANETH MCBC W/PLT COUNT & AUTO [id number] 06:33:00 Test Item Value Reference Range Interpretation [...] = 2801) RAD, CHEST, 1 VIEW, NON [id number] 05:50:00Reason for exam:->chest tubes/ vapothermShould this be [...] posterior third and fourth ribs. Signed: Joyce Raglandbackus hospital Verified Date/Time: 07/18/2020 05:50:00 POCT-GLUCOSE [id number] 21:14:00 Test Item Value Reference Range Interpretation Comments POC-GLUCOSE METER 128 mg/dL 70-110 H : TESTED A T [facility] 6720 (BEAKER) (test code = [place], 1538) [address]: 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/Techni norah ID = [id number] for Esther Nataliia arvizu Osmolality, [id number] 17:58:00 Test Item Value Reference Range Interpretation Comments Osmolality Serum (test 269 See_Comment L [Aut omated message] code = 2692-2) The system Stroho generated this result transmitted ref erence range: 275 - 29 5 mOsm/kg. The reference range was not used to int erpret this result as normal/abnormal . Lab Interpretation (test Abnormal code = 69133-8) [facility] HospitalOSMOLALITY, [id number] 17:58:00 Test Item Value Reference Range Interpretation Comments OSMOLALITY, SERUM (BEAKER) (test 269 mOsm/kg 275-295 L code = 615) Potassium, random [id number] 17:44:00 Test Item Value Reference Range Interpretation Comments Potassium Urine 71.0 meq/L (test code = 2828-2) SHERON (test code = Reference Range: No SHERON) NormalsOperator ID - BS [facility]odium[facility] random [id number] 17:44:00 Test Item Value Reference Range Interpretation Comments Sodium Urine (test 40 meq/L code = 2955-3) SHERON (test code = Reference Range: No SHERON) NormalsOperator ID - BS [facility] HospitalUrea Nitrogen, random [id number] 17:44:00 Test Item Value Reference Range Interpretation Comments Urea Nitrogen, Ur 475 mg/dL (test code = 3095-7) SHERON (test code = Reference Range: No SHERON) NormalsOperator ID - BS [facility] HospitalPOTASSIUM, RANDOM [id number] 17:44:00 Test Item Value Reference Range Interpretation Comments POTASSIUM URINE (BEAKER) (test 71.0 meq/L code = 195) Reference Range: No NormalsOperator ID - BSSODIUM, RANDOM [id number] 17:44:00 Test Item Value Reference Range Interpretation Comments SODIUM URINE (BEAKER) (test code = 40 meq/L 243) Reference Range: No NormalsOperator ID - BSUREA NITROGEN, RANDOM [id number] 17:44:00 Test Item Value Reference Range Interpretation Comments UREA NITROGEN URINE (BEAKER) (test 475 mg/dL code = 538) Reference Range: No NormalsOperator ID - BS2D Echo W/Doppler(CW/PW/Color) 2020-07-17 17:24:10Ejection FractionSLE ECHO HEARTLAB MKCKESSON CPACSInterface, External Ris In - 07/17/2020 5:24 PM CDTTransthoracic Echocardiography Report (TTE) Demographics Patient Name INDIANA AMIN Date of Study 07/17/2020 MCKINLEY LEE MRManuela [id number] Gender Male Visit Number [id number] Race Unknown Number [id number] Number Date of 1960 Referring Roshan Owen MD Physician Age 60 year(s) 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 Left Atrium LA size is ofqn-ol-fxmfyuizvw enlarged . Right Ventricle Normal right ventricle [...] TR Velocity: 2.39 m/s TR Gradient: 22.93 mmHgHuntington HospitalPOCT- GLUCOSE [id number] 16:56:00 Test Item Value Reference Range Interpretation Comments POC-GLUCOSE METER 105 mg/dL 70-110 : TESTED A T [facility] 6720 (BEAKER) (test code = [employer] [facility], 1538) [address]: 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/Techni norah ID = [id number] for KASSIDY TAVARES Osmolality, [id number] 16:29:00 Test Item Value Reference Range Interpretation Comments Osmolality, Ur (test code 442 See_Comment [ Automated message] = 2695-5) The system OBOOK generated this result transmitted ref erence range: 50-1,200 mOsm/kg mOsm/kg . The reference range was not used to int erpret this result as normal/abnormal . Lab Interpretation (test Normal code = 47803-2) [facility] HospitalOSMOLALITY, [id number] 16:29:00 Test Item Value Reference Range Interpretation Comments OSMOLALITY URINE (BEAKER) (test 442 mOsm/kg 50-1,200 mOsm/kg code = 614) POCT-GLUCOSE [id number] 11:03:00 Test Item Value Reference Range Interpretation Comments POC-GLUCOSE METER 116 mg/dL 70-110 H : TESTED A T [facility] 6720 (BEAKER) (test code = [employer] [place], 1538) [address]: 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/Techni norah ID = [id number] for KASSIDY TAVARES RAD, CHEST, 1 VIEW, NON [id number] 09:24:00Reason for exam:->chest tubes/ vapothermShould this be [...] MDReport Verified Date/Time: 07/17/2020 09:24:02 Reading Location: [facility] Radiology Reading Room POCT-GLUCOSE [id number] 07:42:00 Test Item Value Reference Range Interpretation Comments POC-GLUCOSE METER 137 mg/dL 70-110 H : TESTED A T [facility] 6720 (BEAKER) (test code = [facility] [place], 1538) [address]: 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/Techni norah ID = [id number] for KASSIDY TAVARES BASIC METABOLIC [id number] 07:26:00 Test Item Value Reference Range Interpretation [...] S NOT APPLICABLE FOR DIALYSIS PATIEN TS. 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 ID - PIAYA [id number] 07:26:00 Test Item Value Reference Range Interpretation Comments MAGNESIUM (BEAKER) (test code = 1.8 mg/dL 1.6-2.6 627) 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 ID - PIAYA LCBC W/PLT COUNT & AUTO [id number] 07:14:00 Test Item Value Reference Range Interpretation [...] (BEAKER) (test code = 2801) Blood gas, [id number] 06:13:00 Test Item Value Reference Range Interpretation Comments pH, Arterial (test 7.50 7.35-7.45 H code = 2744-1) pCO2, Arterial (test 38 See_Comment [Autom ated code = 2019-8) message] The system which generated this result transmit rosa isela reference range : 35 - 45 mm Hg. The reference range was not used to interpret this result as normal/abnormal . pO2, Arterial (test 51 See_Comment L [Automa rosa isela code = 2703-7) message] The system which generated this result transmit rosa isela reference range : 80 - 90 mm Hg. The reference range was not used to interpret this result as normal/abnormal . O2 Sat, Arterial 89.0 % 96-97 L (test code = 2708-6) HCO3, Arterial (test 29 mmol/L 21-29 code = 1960-4) Base Excess, Arterial 5.6 mmol/L -2-3 H (test code = 1925-7) Patient Temperature 37.0 (test code = 8310-5) FIO2 (test code = 21 1819) SHERON (test code = SHERON) Please obtain room air ABG. Lab Interpretation Abnormal (test code = 89406-3) [facility] HospitalBLOOD GAS, [id number] 06:13:00 Test Item Value Reference Range Interpretation [...] 1819) 21.0 Please obtain room air ABG.POCT-GLUCOSE [id number] 21:26:00 Test Item Value Reference Range Interpretation Comments POC-GLUCOSE METER 123 mg/dL 70-110 H : TESTED A T [facility] 6720 (BEAKER) (test code = [facility] [place], 1538) [address]: 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/Techni norah ID = [id number] for SHANA SKY SE POCT-GLUCOSE [id number] 17:43:00 Test Item Value Reference Range Interpretation Comments POC-GLUCOSE METER 104 mg/dL 70-110 : TESTED A T [facility] 6720 (BEAKER) (test code = [facility], 1538) [address]: 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/Techni norah ID = [id number] for MALORIE JOSEPHWITHA Vitamin B12 and [id number] 14:53:00 Test Item Value Reference Range Interpretation Comments Vitamin B12 (test 1276 pg/mL 213-816 H code = 2132-9) Folate (test code = 6.50 ng/mL See_Comment L [Automa rosa isela 2284-8) message] The system which generated this result transmit rosa isela reference range : >=7.00. The reference range was not used to interpret this result as normal/abnormal . SHERON (test code = SHERON) 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 ID - BS Lab Interpretation Abnormal (test code = 72034-0) [facility] HospitalFerritin2020-10-12 14:53:00 Test Item Value Reference Range Interpretation Comments Ferritin (test code = 214.98 ng/mL 5-275 2276-4) SHERON (test code = SHERON) 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 ID - BS Lab Interpretation (test Normal code = 73880-8) [facility] HospitalFERRITIN2020-10-12 14:53:00 Test Item Value Reference Range Interpretation Comments FERRITIN (BEAKER) (test code = 214.98 ng/mL 5.00-275.00 361) 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 ID - BSVITAMIN B12 AND [id number] 14:53:00 Test Item Value Reference Range Interpretation Comments VITAMIN B12 (BEAKER) (test code = 1276 pg/mL 213-816 H 774) FOLATE (BEAKER) (test code = 362) 6.50 ng/mL >=7.00 L 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 ID - BSIron, TIBC, % sat. (without ferritin)2020-07-16 14:18:00 Test Item Value Reference Range Interpretation Comments Iron (test code = 2498-4) 30.0 ug/dL 40-160 L TIBC (test code = 2500-7) 336 ug/dL 250-450 Iron % Saturation (test 9 % 20-55 L code = 2502-3) SHERON (test code = SHERON) 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 ID - AAHAMID Lab Interpretation (test Abnormal code = 20324-8) [facility] HospitalIRON, TIBC, % SAT. (WITHOUT FERRITIN)2020-07-16 14:18:00 Test Item Value Reference Range Interpretation Comments IRON (BEAKER) (test code = 547) 30.0 ug/dL 40.0-160.0 L TOTAL IRON BINDING CAPACITY 336 ug/dL 250-450 (BEAKER) (test code = 769) IRON % SATURATION (2) (BEAKER) 9 % 20-55 L (test code = 2590) 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 ID - AAHAMIDPOCT-GLUCOSE [id number] 11:30:00 Test Item Value Reference Range Interpretation Comments POC-GLUCOSE METER 115 mg/dL 70-110 H : [facility] (BEAKER) (test code = [facility], 1538) [address]: 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/Techni norah ID = [id number] for JASON SHEFFIELD RAD, CHEST, 1 VIEW, NON [id number] 11:19:00Reason for exam:->chest tubes/ vapothermShould this be [...] MDReport Verified Date/Time: 07/16/2020 11:19:22 [facility] POCT-GLUCOSE [id number] 07:23:00 Test Item Value Reference Range Interpretation Comments POC-GLUCOSE METER 114 mg/dL 70-110 H : TESTED A T [facility] 6720 (BEAKER) (test code = [place], 1538) [address]: 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/Techni norah ID = [id number] for DILSHAD JOSEPH BASIC METABOLIC [id number] 07:16:00 Test Item Value Reference Range Interpretation [...] S NOT APPLICABLE FOR DIALYSIS PATIEN TS. 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 ID - YANETH [id number] 07:16:00 Test Item Value Reference Range Interpretation Comments MAGNESIUM (BEAKER) (test code = 2.0 mg/dL 1.6-2.6 627) 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 ID - YANETH MCBC W/PLT COUNT & AUTO [id number] 06:27:00 Test Item Value Reference Range Interpretation [...] PERCENT (BEAKER) (test code = 2801) POCT-GLUCOSE [id number] 22:38:00 Test Item Value Reference Range Interpretation Comments POC-GLUCOSE METER 130 mg/dL 70-110 H : TESTED A T [facility] 6720 (BEAKER) (test code = [facility], 1538) [address]: 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/Techni norah ID = [id number] for WILLIAM MCMANUS POCT-GLUCOSE [id number] 17:00:00 Test Item Value Reference Range Interpretation Comments POC-GLUCOSE METER 116 mg/dL 70-110 H : TESTED A T [facility] 6720 (BEAKER) (test code = [facility], 1538) [address]: 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/Techni norah ID = [id number] for EDITH KAY POCT-GLUCOSE [id number] 11:22:00 Test Item Value Reference Range Interpretation Comments POC-GLUCOSE METER 141 mg/dL 70-110 H : TESTED A T [facility] 6720 (BEAKER) (test code = [facility], 1538) [address]: 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/Techni norah ID = [id number] for EDITH KAY POCT-GLUCOSE [id number] 07:53:00 Test Item Value Reference Range Interpretation Comments POC-GLUCOSE METER 114 mg/dL 70-110 H : TESTED A T [facility] 6720 (BEAKER) (test code = [facility], 1538) [address]: 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/Techni norah ID = [id number] for EDITH KAY RAD, CHEST, 1 VIEW, NON [id number] 07:52:00Reason for exam:->chest tubes/ vapothermShould this be [...] Martinez Verified Date/Time: 07/15/2020 07:52:20 C METABOLIC [id number] 06:33:00 Test Item Value Reference Range Interpretation [...] S NOT APPLICABLE FOR DIALYSIS PATIEN TS. 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 ID - PIAYA [id number] 06:23:00 Test Item Value Reference Range Interpretation Comments MAGNESIUM (BEAKER) (test code = 2.0 mg/dL 1.6-2.6 627) 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 ID - PIAYA LCBC W/PLT COUNT & AUTO [id number] 05:56:00 Test Item Value Reference Range Interpretation [...] PERCENT (BEAKER) (test code = 2801) POCT-GLUCOSE [id number] 21:49:00 Test Item Value Reference Range Interpretation Comments POC-GLUCOSE METER 121 mg/dL 70-110 H : TESTED A T [facility] 6720 (BEAKER) (test code = [place], 1538) [address]: 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/Techni norah ID = [id number] for [facility], THONY BASIC METABOLIC [id number] 05:04:00 Test Item Value Reference Range Interpretation [...] S NOT APPLICABLE FOR DIALYSIS PATIEN TS. [id number] 05:04:00 Test Item Value Reference Range Interpretation Comments MAGNESIUM (BEAKER) (test code = 2.1 mg/dL 1.6-2.6 627) RAD, CHEST, 1 VIEW, NON [id number] 04:51:00Reason for exam:->chest tubes/ vapothermShould this be [...] multiple healed left-sided rib fractures. Signed: Joyce Raglandepramonita Verified Date/Time: 07/14/2020 04:51:20 CBC W/PLT COUNT [...] PERCENT (BEAKER) (test code = 2801) POCT-GLUCOSE [id number] 01:33:00 Test Item Value Reference Range Interpretation Comments POC-GLUCOSE METER 134 mg/dL 70-110 H : TESTED A T [facility] 6720 (BEAKER) (test code = [facility] [place], 1538) [address]: 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/Techni norah ID = [id number] for [facility] III, THONY BASIC METABOLIC [id number] 07:23:00 Test Item Value Reference Range Interpretation [...] S NOT APPLICABLE FOR DIALYSIS PATIEN TS. 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 ID - [id number] 06:58:00 Test Item Value Reference Range Interpretation Comments MAGNESIUM (BEAKER) (test code = 2.1 mg/dL 1.6-2.6 627) 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 ID - EDASICBC W/PLT COUNT & AUTO [id number] 06:41:00 Test Item Value Reference Range Interpretation [...] = 2801) RAD, CHEST, 1 VIEW, NON [id number] 05:53:00Reason for exam:->chest tubes/ vapothermShould this be [...] right lateral chest wall. Signed: Joyce Ragland MDReport Verified Date/Time: 07/13/2020 05:53:50 POCT-GLUCOSE [id number] 06:29:00 Test Item Value Reference Range Interpretation Comments POC-GLUCOSE METER 113 mg/dL 70-110 H : TESTED A T [facility] 6720 (BEAKER) (test code = [facility], 1538) [address]: 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/Techni norah ID = [id number] for JAMIE TA BASIC METABOLIC [id number] 06:20:00 Test Item Value Reference Range Interpretation [...] S NOT APPLICABLE FOR DIALYSIS PATIEN TS. 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 ID - YANETH [id number] 06:15:00 Test Item Value Reference Range Interpretation Comments MAGNESIUM (BEAKER) (test code = 2.1 mg/dL 1.6-2.6 627) 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 ID - YANETH [facility] W/PLT COUNT & AUTO [id number] 04:58:00 Test Item Value Reference Range Interpretation [...] (BEAKER) (test code = 2801) BLOOD GAS, [id number] 04:37:00 Test Item Value Reference Range Interpretation [...] 36.0 % RAD, CHEST, 1 VIEW, NON [id number] 03:32:00Reason for exam:->chest tubes/ vapothermShould this be [...] telectasis. There is no pneumothorax. Signed: Joyce Ragland Verified Date/Time: 07/12/202003:32:05 Prepare Leuko-Red [id number] 23:54:00 Test Item Value Reference Range Interpretation Comments CROSSMATCH (test code = 2264) COMPATIBLE Unit ABO (test code = O Pos [id number]) UNIT NUMBER (test code = [id number] 934-0) Status (test code = 8556095) TX_TIMEINCHART Blood Bank Product (test code RED BLOOD CELLS = 2263) PRODUCT CODE (test code = K8337O60 933-2) [facility] [id number] 23:35:00 Test Item Value Reference Range Interpretation Comments POC-GLUCOSE METER 125 mg/dL 70-110 H : TESTED A T [facility] 6720 (BEAKER) (test code = [facility], 1538) 27518: 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/Techni norah ID = [id number] for JAMIE TA POCT-GLUCOSE [id number] 18:12:00 Test Item Value Reference Range Interpretation Comments POC-GLUCOSE METER 127 mg/dL 70-110 H : TESTED A T [facility] 6720 (BEAKER) (test code = [facility], 1538) 36871: 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/Techni norah ID = [id number] for Adrianne Monzon BASIC METABOLIC [id number] 12:24:00 Test Item Value Reference Range Interpretation [...] S NOT APPLICABLE FOR DIALYSIS PATIEN TS. 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 ID - JAEL [id number] 12:17:00 Test Item Value Reference Range Interpretation Comments MAGNESIUM (BEAKER) (test code = 2.2 mg/dL 1.6-2.6 627) 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 ID - JAEL CBLOOD GAS, [id number] 11:58:00 Test Item Value Reference Range Interpretation [...] (test code = 1819) 80.0 % POCT-GLUCOSE [id number] 11:48:00 Test Item Value Reference Range Interpretation Comments POC-GLUCOSE METER 132 mg/dL 70-110 H : TESTED A T [facility] 6720 (BEAKER) (test code = [facility] [place], 1538) 76[address]: 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/Techni norah ID = [id number] for Adrianne Monzon PLATELET AGGREGATION: FUNCTION [id number] 08:03:00 Test Item Value Reference Range Interpretation Comments [id number] Dee This i s a (BEAKER) (test code = MD Shannan [facility] rosa isela 3506) (electronic result. signature) Previous result was Dee Campbell MD (electronic signature) on 07/09/2020 at 1019 CDT PLATELET COUNT AGG 179 K/CU MM 150-450 This is a (BEAKER) (test code = [facility] [place] 6520) result. Previous result was 179 K/CU MM on 07/09/2020 at 1019 CDT ADP (BEAKER) (test 47 % 62-100 L This is a code = 1853) corrected result. Previous result was 47 % on 07/09/2020 at 1019 CDT PLATELET RICH 206 k/cu mm 200-300 This is a PLASMA(BEAKER) (test correct ed code = 2134) result. Previous result was 206 k/cu mm on 07/09/2020 at 1019 CDT PLATELET FUNCTION Decreased SCREEN INTERPRETATION aggregation with (BEAKER) (test code = ADP which 4655) indicates platelet dysfunction that may be due to medication effect, uremia, or other platelet function disorders. Clinical correlation is required. Platelet Function Screen results may be falsely low with platelet counts<75,000/cu mm.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 ID- 6000Operator ID - 6000Operator ID - [id number] due to QC investigation. Spoke to RN ID:[id number] Aggregation: Function [id number] 08:03:00Pathologist:Comment: This is a corrected result. Previous result was Dee Campbell MD (electronic signature) on 07/09/[address] [place], [place] [address]PlateletsComment: This is a corrected result. Previous result was 179 K/CU MM on 07/09/[address] [place], [place] [address]ADPComment: This is a corrected result. Previous result was 47 % on 07/09/[address] [place], [place] [address]Platelet Rich PlasmaComment: This is a corrected result. Previous result was 206 k/cu mm on 07/09/[address] [place], [place] [address]Plt. Function Screen InterpretationCHI CARIBOU MEMORIAL HOSPITALPlatelet Function Screen results may be falsely low with platelet counts<75,000/cu mm.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 ID - 6000Operator ID - 6000Operator ID - [id number] due to QC investigation. Spoke to RN ID:[id number] [facility] HospitalOxygen saturation, [id number] 07:23:00 Test Item Value Reference Range Interpretation Comments O2 Saturation (Measured) (test code = 65.6 % 67624-9) [facility] HospitalOXYGEN SATURATION, [id number] 07:23:00 Test Item Value Reference Range Interpretation Comments O2 SATURATION (MEASURED) (BEAKER) 65.6 % (test code = 1455) BLOOD GAS, [id number] 07:23:00 Test Item Value Reference Range Interpretation [...] 100.0 % RAD, CHEST, 1 VIEW, NON [id number] 07:09:00Reason for exam:->chest tubes/ vapothermShould this be performed at the bedside?->YesFINAL REPORT RAD, CHEST, 1 VIEW, NON DEPT INDICATION: chest tubes/ vapotherm C OMPARISON: Prior day's exam FINDINGS: Portable frontal view of the chest. IMPRESSION: Support Lines: Stable. Lungs and pleura: Stable interstitial congestion. Small right effusion. No pneumothorax.Heart and mediastinum: Stable contours. Stable surgical changes.Additional findings: None. Signed: Annabelle hernandes JR, Sean Arevalo Verified Date/Time: 07/11/2020 07:09:03 Reading Location: [address] Transitional Reading Room POCT-GLUCOSE [id number] 05:36:00 Test Item Value Reference Range Interpretation Comments POC-GLUCOSE METER 122 mg/dL 70-110 H : TESTED A T [facility] 6720 (BEAKER) (test code = [facility], 1538) 89862: 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/Techni norah ID = [id number] for Lang Gonzalez BASIC METABOLIC [id number] 04:28:00 Test Item Value Reference Range Interpretation [...] S NOT APPLICABLE FOR DIALYSIS PATIEN TS. 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 ID - YANETH [id number] 04:27:00 Test Item Value Reference Range Interpretation Comments Phosphorus (test code = 3.1 mg/dL 2.3-4.7 2777-1) SHERON (test code = SHERON) 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 ID - YANETH M Lab Interpretation (test Normal code = 30430-3) [facility] HospitalPHOSPHORUS2020-10-07 04:27:00 Test Item Value Reference Range Interpretation Comments PHOSPHORUS (BEAKER) (test code = 3.1 mg/dL 2.3-4.7 604) 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 ID - YANETH [id number] 04:27:00 Test Item Value Reference Range Interpretation Comments MAGNESIUM (BEAKER) (test code = 2.0 mg/dL 1.6-2.6 627) 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 ID - YANETH MCBC (Hemogram only)2020-07-11 04:10:00 Test Item Value Reference Range Interpretation Comments WBC (test code = 6690-2) 11.0 See_Comment H [A utomated message] The system [employer] generated this result transmitted ref erence range: 3.5 - 10 .5 K/L. The refe rence range was not u sed to interpret this result as normal/abnor mal. RBC (test code = 789-8) 2.91 See_Comment L [Au tomated message] The system whic h generated this result transmitted ref erence range: 4.63 - 6 .08 M/L. The refe rence range was not u sed to interpret this result as normal/abnor mal. MCHC (test code = 786-4) 33.0 See_Comment L [A utomated message] The system [employer] generated this result transmitted ref erence range: 32.3 - 3 6.5 GM/DL. The refe rence range was not u sed to interpret this result as normal/abnor mal. Hematocrit (test code = 26.4 % 40.1-51 L 4544-3) MCV (test code = 787-2) 90.7 fL 79-92.2 MCH (test code = 785-6) 29.9 pg 25.7-32.2 RDW (test code = 788-0) 14.9 % 11.6-14.4 H Platelets (test code = 175 See_Comment [Aut omated message] 777-3) The system [employer] generated this result transmitted ref erence range: 150 - 45 0 K/CU MM. The referen ce range was not u sed to interpret this result as normal/abnor mal. MPV (test code = 11.9 fL 9.4-12.4 35940-8) nRBC (test code = 413) 1 See_Comment H [Aut omated message] The system [employer] generated this result transmitted ref erence range: 0 - 0 /1 00 WBC. The refere nce range was not u sed to interpret this result as normal/abnor mal. Lab Interpretation (test Abnormal code = 16321-4) [facility] (HEMOGRAM ONLY)2020-07-11 04:10:00 Test Item Value Reference [...] (BEAKER) (test code = 413) BLOOD GAS, [id number] 03:31:00 Test Item Value Reference Range Interpretation [...] (test code = 1819) 80.0 % POCT-GLUCOSE [id number] 00:08:00 Test Item Value Reference Range Interpretation Comments POC-GLUCOSE METER 120 mg/dL 70-110 H : [facility] ([facility]ER[facility] (test code = [facility], 1538) 854[address]: 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/Techni norah ID = [id number] for Lang Gonzalez [id number] 23:54:00 Test Item Value Reference Range Interpretation Comments Unit ABO (test code = 4441060) B Pos UNIT NUMBER (test code = [id number] 934-0) Status (test code = 1149036) TX_TIMEINCHART Blood Bank Product (test code PLATELETS = 2263) PRODUCT CODE (test code = E0063K57 933-2) [facility] HospitalBLOOD GAS, [id number] 18:15:00 Test Item Value Reference Range Interpretation [...] (test code = 1819) 30.0 % POCT-GLUCOSE [id number] 18:10:00 Test Item Value Reference Range Interpretation Comments POC-GLUCOSE METER 117 mg/dL 70-110 H : TESTED A T [facility] 6720 (BEAKER) (test code = [facility] [place], 1538) 140[address]: 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/Techni norah ID = [id number] for BARRENTINE, DOROTHY PHEN BASIC METABOLIC [id number] 13:02:00 Test Item Value Reference Range Interpretation [...] EGFR (BEAKER) (test 63 mL/min/1.73 ESTIMA ROSA IESLA GFR IS code = 1092) sq m NOT ACCURATE CREATININE CLEARANCE IN PREDICTING GLOMERULAR FILTRATION RATE . ESTIMATED GFR I S NOT APPLICABLE FOR DIALYSIS PATIEN TS. 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 ID - JAEL [id number] 13:01:00 Test Item Value Reference Range Interpretation Comments MAGNESIUM (BEAKER) (test code = 2.2 mg/dL 1.6-2.6 627) 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 ID - JAEL CBLOOD GAS, [id number] 12:41:00 Test Item Value Reference Range Interpretation [...] code = 1819) 30.0 % OXYGEN SATURATION, [id number] 12:38:00 Test Item Value Reference Range Interpretation Comments O2 SATURATION (MEASURED) (BEAKER) 53.6 % (test code = 1455) BLOOD GAS, [id number] 10:04:00 Test Item Value Reference Range Interpretation [...] code = 1819) 40.0 % BLOOD GAS, [id number] 07:40:00 Test Item Value Reference Range Interpretation [...] = 1819) 40.0 % Temp:: 101.9Lactic Acid, [id number] 06:18:00 Test Item Value Reference Range Interpretation Comments Lactate, Art (test code = 1.0 mmol/L 0.5-2.2 2874) SHERON (test code = SHERON) 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 ID - EDASI Lab Interpretation (test Normal code = 08994-8) [facility] HospitalLACTIC ACID, [id number] 06:18:00 Test Item Value Reference Range Interpretation Comments LACTATE BLOOD ARTERIAL (2) 1.0 mmol/L 0.5-2.2 (BEAKER) (test code = 2874) 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 ID - EDASIBLOOD GAS, [id number] 06:03:00 Test Item Value Reference Range Interpretation [...] (test code = 1819) 60.0 % POCT-GLUCOSE [id number] 06:00:00 Test Item Value Reference Range Interpretation Comments POC-GLUCOSE METER 103 mg/dL 70-110 : TESTED A T [facility] 6720 (BEAKER) (test code = [facility] [place], 1538) 229[address]: 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/Techni norah ID = [id number] for Lang Gonzalez RAD, CHEST, 1 VIEW, NON [id number] 04:47:00while patient is intubated or has chest tubes.Reason for exam:->Status post CV SurgeryShould thisbe performed at the bedside?->YesFINAL REPORT RAD, CHEST, 1 VIEW, NON DEPT INDICATION: Status post CV Surgery COMPARISON: Prior day's exam FINDINGS: Portable frontal view of the chest. IMPRESSION: Support Lines: Interval repositioning of the right IJ Earth-Jesus Alberto catheter tip overlying the interlobar pulmonary artery. Otherwise unchanged support apparatus. Lungs and pleura: Unchanged airspace and pleural opacities when allowing for decreased lung volumes.. No pneumothorax.Heart and mediastinum: Stable contours. Stable surgical changes.Additional findings: None. Signed: Maddie Ibrahim Verified Date/Time: 07/10/2020 04:47:40 BASIC METABOLIC [id number] 04:36:00 Test Item Value Reference Range Interpretation [...] S NOT APPLICABLE FOR DIALYSIS PATIEN TS. 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 ID - [id number] 04:09:00 Test Item Value Reference Range Interpretation Comments PHOSPHORUS (BEAKER) (test code = 4.5 mg/dL 2.3-4.7 604) 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 ID - [id number] 04:09:00 Test Item Value Reference Range Interpretation Comments MAGNESIUM (BEAKER) (test code = 2.1 mg/dL 1.6-2.6 627) 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 ID - EDASILACTIC ACID, [id number] 04:02:00 Test Item Value Reference Range Interpretation Comments LACTATE BLOOD ARTERIAL (2) 1.0 mmol/L 0.5-2.2 (BEAKER) (test code = 2874) 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 ID - EDASICBC (HEMOGRAM ONLY)2020-07-10 03:51:00 Test [...] (BEAKER) (test code = 413) OXYGEN SATURATION, [id number] 03:46:00 Test Item Value Reference Range Interpretation Comments O2 SATURATION (MEASURED) (BEAKER) 61.3 % (test code = 1455) BLOOD GAS, [id number] 03:45:00 Test Item Value Reference Range Interpretation [...] code = 1819) 60.0 % LACTIC ACID, [id number] 01:27:00 Test Item Value Reference Range Interpretation Comments LACTATE BLOOD ARTERIAL (2) 1.5 mmol/L 0.5-2.2 (BEAKER) (test code = 2874) 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 ID - KELECHI Jhaveri ID - EDASIBLOOD GAS, [id number] 00:43:00 Test Item Value Reference Range Interpretation [...] (test code = 1819) 60.0 % POCT-GLUCOSE [id number] 00:20:00 Test Item Value Reference Range Interpretation Comments POC-GLUCOSE METER 99 mg/dL 70-110 : TESTED A T [facility] 6720 (BEAKER) (test code = [facility] [place], 1538) 832[address]: 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/Techni norah ID = [id number] for Lang Leal BASIC METABOLIC [id number] 23:16:00 Test Item Value Reference Range Interpretation [...] S NOT APPLICABLE FOR DIALYSIS PATIEN TS. 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 ID - PITIGIST [id number] 23:15:00 Test Item Value Reference Range Interpretation Comments PHOSPHORUS (BEAKER) (test code = 4.6 mg/dL 2.3-4.7 604) 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 ID - PITIGIST [id number] 23:15:00 Test Item Value Reference Range Interpretation Comments MAGNESIUM (BEAKER) (test code = 1.7 mg/dL 1.6-2.6 627) 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 ID - KELECHI LLACTIC ACID, [id number] 23:11:00 Test Item Value Reference Range Interpretation Comments LACTATE BLOOD ARTERIAL (2) 2.6 mmol/L 0.5-2.2 H (BEAKER) (test code = 2874) 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 ID - KELECHI LCalcium, [id number] 23:08:00 Test Item Value Reference Range Interpretation Comments Calcium, Ion (test code = 1994-3) 1.05 mmol/L 1.12-1.27 L pH, Blood (test code = 87567-6) 7.41 Lab Interpretation (test code = Abnormal 92415-8) [facility] HospitalCALCIUM, [id number] 23:08:00 Test Item Value Reference Range Interpretation Comments CALCIUM IONIZED (BEAKER) (test 1.05 mmol/L 1.12-1.27 L code = 698) PH, BLOOD (BEAKER) (test code = 7.41 1810) HGB/HCT (H&H)-Stat [id number] 23:07:00 Test Item Value Reference Range Interpretation Comments Hemoglobin (test code = 786-4) 7.3 g/dL 13-16.8 L Hematocrit (test code = 4544-3) 21.0 % 40-50 L Lab Interpretation (test code = Abnormal 04745-9) [facility] HospitalBLOOD GAS, [id number] 23:07:00 Test Item Value Reference Range Interpretation [...] 1819) 60.0 % HGB/HCT (H&H) - STAT [id number] 23:07:00 Test Item Value Reference Range Interpretation Comments HEMOGLOBIN (BEAKER) (test code = 7.3 g/dL 13.0-16.8 L 410) HEMATOCRIT (BEAKER) (test code = 21.0 % 40.0-50.0 L 411) OXYGEN SATURATION, [id number] 23:05:00 Test Item Value Reference Range Interpretation Comments O2 SATURATION (MEASURED) (BEAKER) 66.9 % (test code = 1455) Glucose-Stat [id number] 23:03:00 Test Item Value Reference Range Interpretation Comments Glucose (test code = 2345-7) 109 mg/dL 70-110 Lab Interpretation (test code = Normal 27651-5) [facility] [id number] 23:03:00 Test Item Value Reference Range Interpretation Comments Sodium (test code = 2951-2) 135 meq/L 136-145 L Lab Interpretation (test code = Abnormal 27190-1) [facility] HospitalPotassium-Stat [id number] 23:03:00 Test Item Value Reference Range Interpretation Comments Potassium (test code = 2823-3) 4.0 meq/L 3.6-5.5 Lab Interpretation (test code = Normal 10643-9) [facility] HospitalGLUCOSE-STAT [id number] 23:03:00 Test Item Value Reference Range Interpretation Comments GLUCOSE RANDOM (BEAKER) (test code 109 mg/dL 70-110 = 652) SODIUM NA-STAT [id number] 23:03:00 Test Item Value Reference Range Interpretation Comments SODIUM (BEAKER) (test code = 381) 135 meq/L 136-145 L POTASSIUM-STAT [id number] 23:03:00 Test Item Value Reference Range Interpretation Comments POTASSIUM (BEAKER) (test code = 4.0 meq/L 3.6-5.5 379) BLOOD GAS, [id number] 21:47:00 Test Item Value Reference Range Interpretation [...] (BEAKER) (test code = 1819) 60.0 % [id number] 21:13:00 Test Item Value Reference Range Interpretation Comments Potassium (test code = 4.8 meq/L 3.5-5.1 2823-3) SHERON (test code = SHERON) 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 ID - BS Lab Interpretation (test Normal code = 09245-7) [facility] HospitalPOTASSIUM2020-10-05 21:13:00 Test Item Value Reference Range Interpretation Comments POTASSIUM (BEAKER) (test code = 4.8 meq/L 3.5-5.1 379) 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 ID - BSLACTIC ACID, [id number] 19:59:00 Test Item Value Reference Range Interpretation Comments LACTATE BLOOD ARTERIAL (2) 4.8 mmol/L 0.5-2.2 HH (BEAKER) (test code = 2874) 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 ID - BSHemoglobin and [id number] 19:44:00 Test Item Value Reference Range Interpretation Comments Hemoglobin (test code 8.4 See_Comment L [Auto mated = 786-4) message] The system which generated this result transmit rosa isela reference range : 13.7 - 17.5 GM/ DL. The reference range was not u sed to interpret th is result as normal/abnormal . Hematocrit (test code 25.2 % 40.1-51 L = 4544-3) SHERON (test code = SHERON) 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 ID - [id number] Lab Interpretation Abnormal (test code = 09365-0) [facility] HospitalHEMOGLOBIN AND [id number] 19:44:00 Test Item Value Reference Range Interpretation Comments HEMOGLOBIN (BEAKER) (test code = 8.4 GM/DL 13.7-17.5 L 410) HEMATOCRIT (BEAKER) (test code = 25.2 % 40.1-51.0 L 411) 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 ID - 6000POCT-GLUCOSE [id number] 19:38:00 Test Item Value Reference Range Interpretation Comments POC-GLUCOSE METER 147 mg/dL 70-110 H : TESTED A T [facility] 6720 (BEAKER) (test code = [facility] [place], 1538) 30[address]: 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/Techni norah ID = [id number] for Lang Gonzalez [id number] 19:12:00 Test Item Value Reference Range Interpretation Comments Unit ABO (test code = O Pos 4668417) UNIT NUMBER (test code = [id number] 934-0) Status (test code = RETURNED FROM ISSUE 3027795) Blood Bank Product (test FFP code = 2263) PRODUCT CODE (test code = V5241D89 933-2) [facility] [id number] 18:50:00 Test Item Value Reference Range Interpretation [...] failure, acidosis, acute neurological disease, and persistent tachyarrhythmia.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 ID - [id number] 18:40:00 Test Item Value Reference Range Interpretation Comments PHOSPHORUS (BEAKER) (test code = 5.1 mg/dL 2.3-4.7 H 604) 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 ID - [id number] 18:40:00 Test Item Value Reference Range Interpretation Comments MAGNESIUM (BEAKER) (test code = 1.8 mg/dL 1.6-2.6 627) 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 ID - BSBASIC METABOLIC [id number] 18:40:00 Test Item Value Reference Range Interpretation [...] 697) EGFR (BEAKER) (test 87 mL/min/1.73 ESTIMA RSOA ISELA GFR IS code = 1092) sq m NOT ACCURATE CREATININE CLEARANCE IN PREDICTING GLOMERULAR FILTRATION RATE . ESTIMATED GFR I S NOT APPLICABLE FOR DIALYSIS PATIEN TS. 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 ID - BSLACTIC ACID, [id number] 18:36:00 Test Item Value Reference Range Interpretation Comments LACTATE BLOOD ARTERIAL (2) 3.7 mmol/L 0.5-2.2 H (BEAKER) (test code = 2874) 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 ID - BSBLOOD GAS, [id number] 18:15:00 Test Item Value Reference Range Interpretation [...] (test code = 1819) 50.0 % POCT-GLUCOSE [id number] 18:15:00 Test Item Value Reference Range Interpretation Comments POC-GLUCOSE METER 146 mg/dL 70-110 H : TESTED A T [facility] 6720 (BEAKER) (test code = [facility] [place], 1538) [address]: 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/Techni norah ID = [id number] for JASON LIND CBC W/PLT COUNT & AUTO [id number] 17:39:00 Test Item Value Reference Range Interpretation [...] PERCENT (BEAKER) (test code = 2801) Manual [id number] 16:42:00 Test Item Value Reference Range Interpretation Comments % Neutros (test code 82 % = 2816) % Lymphs (test code 7 % = 2817) % Monos (test code = 2 % 2817) % Bands (test code = 9 % 0-10 2825) # Neutros (test code 6.89 K/ul 1.78-5.38 H = 2830) # Lymphs (test code 0.59 K/ul 1.32-3.57 L = 2831) # Monos (test code = 0.17 K/uL 0.3-0.82 L 2832) # Bands (test code = 0.76 K/uL 0-0.8 2840) Total Counted (test 100 code = 1351) nRBC (manual) (test 1 See_Comment H [Automa rosa isela code = 1353) message] The system which generated this result transmitted reference range : 0 - 0 /100 WBC. The reference range was not used to interpret this result as normal/abnormal . WBC Morphology (test Normal code = 487) Platelet Morphology Normal (test code = 486) Anisocytosis (test 1+ few code = 961) Microcytes (test 1+ few code = 965) Artifact (test code Present = 3432) Platelet Conc (test Decreased code = 3438) SHERON (test code = 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 ID - SHERON) 6000Operator ID - Dean comments: Slide comments: Lab Interpretation Abnormal (test code = 44670-0) [facility](CELLAVISION MANUAL DIFF)2020-07-09 16:42:00 Test Item Value Reference Range Interpretation Comments NEUTROPHILS - REL 82 % (CELLAVISION)(BEAKER) (test code = 2816) LYMPHOCYTES - REL 7 % (CELLAVISION)(BEAKER) (test code = 2817) MONOCYTES - REL 2 % (CELLAVISION)(BEAKER) (test code = 2818) BANDS - REL (CELLAVISION)(BEAKER) 9 % 0-10 (test code = 282) NEUTROPHILS - ABS 6.89 K/ul 1.78-5.38 H [...] CONCENTRATION Decreased (CELLAVISION)(BEAKER) (test code = 3438) 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 ID - 6000Operator ID - Dean comments: Slide comments:RAD, CHEST, 1 VIEW, NON [id number] 16:41:00Reason for exam:->post cardiothoracic surgery/ettShould this be [...] acute osseous abnormality is identified. Signed: Sundar Bermanort Verified Date/Time: 07/09/2020 16:41:23 Reading Location: [facility] C0[facility] Consult Reading Room LACTIC ACID, [id number] 16:20:00 Test Item Value Reference Range Interpretation Comments LACTATE BLOOD 4.1 mmol/L 0.5-2.2 HH Specimen sligh tly ARTERIAL (2) (BEAKER) hemoly zed (test code = 2874) 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 ID Adam BEY [id number] 16:19:00 Test Item Value Reference Range Interpretation Comments MAGNESIUM (BEAKER) 1.8 mg/dL 1.6-2.6 Specimen slightly (test code = 627) hemolyzed 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 ID Adam BEY [id number] 16:19:00 Test Item Value Reference Range Interpretation Comments PHOSPHORUS (BEAKER) 5.0 mg/dL 2.3-4.7 H Specimen slightly (test code = 604) hemolyzed 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 ID Adam BEY FBASIC METABOLIC [id number] 16:19:00 Test Item Value Reference Range Interpretation [...] S NOT APPLICABLE FOR DIALYSIS PATIEN TS. 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 ID Adam BEY FCBC W/PLT COUNT & AUTO [id number] 16:15:00 Test Item Value Reference Range Interpretation [...] WBC 0-0 (BEAKER) (test code = 413) [id number] 16:07:00 Test Item Value Reference Range Interpretation Comments FIBRINOGEN LEVEL (BEAKER) (test 330 mg/dl 225-434 code = 658) [id number] 16:07:00 Test Item Value Reference Range Interpretation Comments PARTIAL THROMBOPLASTIN TIME 32.9 seconds 22.5-36.0 (BEAKER) (test code = 760) PROTHROMBIN TIME/[id number] 16:06:00 Test Item Value Reference Range Interpretation [...] for patients wiht mechanical heart valves.OXYGEN SATURATION, [id number] 15:52:00 Test Item Value Reference Range Interpretation Comments O2 SATURATION (MEASURED) (BEAKER) 78.3 % (test code = 1455) CALCIUM, [id number] 15:51:00 Test Item Value Reference Range Interpretation Comments CALCIUM IONIZED (BEAKER) (test 1.13 mmol/L 1.12-1.27 code = 698) PH, BLOOD (BEAKER) (test code = 7.31 1810) BLOOD GAS, [id number] 15:50:00 Test Item Value Reference Range Interpretation [...] (test code = 1819) 70.0 % GLUCOSE-STAT [id number] 15:50:00 Test Item Value Reference Range Interpretation Comments GLUCOSE RANDOM (BEAKER) (test code 151 mg/dL 70-110 H = 652) HGB/HCT (H&H) - STAT [id number] 15:50:00 Test Item Value Reference Range Interpretation Comments HEMOGLOBIN (BEAKER) (test code = 9.1 g/dL 13.0-16.8 L 410) HEMATOCRIT (BEAKER) (test code = 27.0 % 40.0-50.0 L 411) SODIUM NA-STAT [id number] 15:49:00 Test Item Value Reference Range Interpretation Comments SODIUM (BEAKER) (test code = 381) 135 meq/L 136-145 L POTASSIUM-STAT [id number] 15:49:00 Test Item Value Reference Range Interpretation Comments POTASSIUM (BEAKER) (test code = 4.9 meq/L 3.6-5.5 379) [id number] 15:22:00 Test Item Value Reference Range Interpretation Comments ACTIVATED CLOTTING TIME 120 sec : 74 -137 seconds, (BEAKER) (test code = Baseli ne: TESTED AT 441) [place] [address]: 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/Techni norah ID = [id number] for CA STRO, JORDYN [id number] 15:22:00 Test Item Value Reference Range Interpretation Comments ACTIVATED CLOTTING TIME 499 sec : 74 -137 seconds, (BEAKER) (test code = Baseli ne: TESTED AT 441) [place] [address]: 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/Techni norah ID = [id number] for CA STRO, JORDYN [id number] 15:22:00 Test Item Value Reference Range Interpretation Comments ACTIVATED CLOTTING TIME 422 sec : 74 -137 seconds, (BEAKER) (test code = Baseli ne: TESTED AT [facility]) [place] [address]: 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/Techni norah ID = [id number] for CA STRO, JORDYN [id number] 15:22:00 Test Item Value Reference Range Interpretation Comments ACTIVATED CLOTTING TIME 461 sec : 74 -137 seconds, (BEAKER) (test code = Baseli ne: TESTED AT [facility]) [place] [address]: 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/Techni norah ID = [id number] for CA STRO, JORDYN [id number] 15:22:00 Test Item Value Reference Range Interpretation Comments ACTIVATED CLOTTING TIME 813 sec : 74 -137 seconds, (BEAKER) (test code = Baseli ne: TESTED AT [facility]) [place] [address]: 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/Techni norah ID = [id number] for CA STRO, JORDYN [id number] 15:22:00 Test Item Value Reference Range Interpretation Comments ACTIVATED CLOTTING TIME 599 sec : 74 -137 seconds, (BEAKER) (test code = Baseli ne: TESTED AT [facility]) [place] [address]: 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/Techni norah ID = [id number] for CA STRO, JORDYN [id number] 15:21:00 Test Item Value Reference Range Interpretation Comments ACTIVATED CLOTTING TIME 599 sec : 74 -137 seconds, (BEAKER) (test code = Baseli ne: TESTED AT 441) [facility] [address] [facility], [address]: 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/Techni norah ID = [id number] for CA FIDE FRANZIO [id number] 15:21:00 Test Item Value Reference Range Interpretation Comments ACTIVATED CLOTTING TIME 131 sec : 74 -137 seconds, (BEAKER) (test code = Baselwilmer ne: TESTED AT 441) [facility] [address] [facility], [address]: 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/Techni norah ID = [id number] for CA STROTRISTIANJORDYN PLATELET [id number] 14:30:00 Test Item Value Reference Range Interpretation Comments PLATELET COUNT (BEAKER) (test 165 K/CU MM 150-450 code = 756) 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 ID - [id number] GAS, [id number] 14:24:00 Test Item Value Reference Range Interpretation [...] code = 1819) 95.0 % SODIUM NA-STAT [id number] 14:24:00 Test Item Value Reference Range Interpretation Comments SODIUM (BEAKER) (test code = 381) 133 meq/L 136-145 L GLUCOSE-STAT [id number] 14:24:00 Test Item Value Reference Range Interpretation Comments GLUCOSE RANDOM (BEAKER) (test code 182 mg/dL 70-110 H = 652) HGB/HCT (H&H) - STAT [id number] 14:24:00 Test Item Value Reference Range Interpretation Comments HEMOGLOBIN (BEAKER) (test code = 8.6 g/dL 13.0-16.8 L 410) HEMATOCRIT (BEAKER) (test code = 25.0 % 40.0-50.0 L 411) CALCIUM, [id number] 14:24:00 Test Item Value Reference Range Interpretation Comments CALCIUM IONIZED (BEAKER) (test 1.00 mmol/L 1.12-1.27 L code = 698) PH, BLOOD (BEAKER) (test code = 7.31 1810) POTASSIUM-STAT [id number] 14:23:00 Test Item Value Reference Range Interpretation Comments POTASSIUM (BEAKER) (test code = 5.0 meq/L 3.6-5.5 379) POTASSIUM-STAT [id number] 13:10:00 Test Item Value Reference Range Interpretation Comments POTASSIUM (BEAKER) 6.0 meq/L 3.6-5.5 HH SPECIMEN NOT HEMOLYZED (test code = 379) BLOOD GAS, [id number] 13:09:00 Test Item Value Reference Range Interpretation [...] code = 1819) 80.0 % SODIUM NA-STAT [id number] 13:09:00 Test Item Value Reference Range Interpretation Comments SODIUM (BEAKER) (test code = 381) 133 meq/L 136-145 L GLUCOSE-STAT [id number] 13:09:00 Test Item Value Reference Range Interpretation Comments GLUCOSE RANDOM (BEAKER) (test code 180 mg/dL 70-110 H = 652) HGB/HCT (H&H) - STAT [id number] 13:09:00 Test Item Value Reference Range Interpretation Comments HEMOGLOBIN (BEAKER) (test code = 7.7 g/dL 13.0-16.8 L 410) HEMATOCRIT (BEAKER) (test code = 23.0 % 40.0-50.0 L 411) SODIUM NA-STAT [id number] 12:50:00 Test Item Value Reference Range Interpretation Comments SODIUM (BEAKER) (test code = 381) 131 meq/L 136-145 L GLUCOSE-STAT [id number] 12:50:00 Test Item Value Reference Range Interpretation Comments GLUCOSE RANDOM (BEAKER) (test code 192 mg/dL 70-110 H = 652) HGB/HCT (H&H) - STAT [id number] 12:50:00 Test Item Value Reference Range Interpretation Comments HEMOGLOBIN (BEAKER) (test code = 8.4 g/dL 13.0-16.8 L 410) HEMATOCRIT (BEAKER) (test code = 25.0 % 40.0-50.0 L 411) POTASSIUM-STAT [id number] 12:50:00 Test Item Value Reference Range Interpretation Comments POTASSIUM (BEAKER) 6.1 meq/L 3.6-5.5 HH SPECIMEN NOT HEMOLYZED (test code = 379) BLOOD GAS, [id number] 12:49:00 Test Item Value Reference Range Interpretation [...] (test code = 1819) 85.0 % POTASSIUM-STAT [id number] 12:16:00 Test Item Value Reference Range Interpretation Comments POTASSIUM (BEAKER) 6.1 meq/L 3.6-5.5 HH SPECIMEN NOT HEMOLYZED (test code = 379) BLOOD GAS, [id number] 12:12:00 Test Item Value Reference Range Interpretation [...] code = 1819) 75.0 % SODIUM NA-STAT [id number] 12:12:00 Test Item Value Reference Range Interpretation Comments SODIUM (BEAKER) (test code = 381) 129 meq/L 136-145 L GLUCOSE-STAT [id number] 12:12:00 Test Item Value Reference Range Interpretation Comments GLUCOSE RANDOM (BEAKER) (test code 213 mg/dL 70-110 H = 652) HGB/HCT (H&H) - STAT [id number] 12:12:00 Test Item Value Reference Range Interpretation Comments HEMOGLOBIN (BEAKER) (test code = 7.7 g/dL 13.0-16.8 L 410) HEMATOCRIT (BEAKER) (test code = 23.0 % 40.0-50.0 L 411) POTASSIUM-STAT [id number] 11:44:00 Test Item Value Reference Range Interpretation Comments POTASSIUM (BEAKER) (test code = 6.0 meq/L 3.6-5.5 HH 379) BLOOD GAS, [id number] 11:43:00 Test Item Value Reference Range Interpretation [...] code = 1819) 75.0 % SODIUM NA-STAT [id number] 11:43:00 Test Item Value Reference Range Interpretation Comments SODIUM (BEAKER) (test code = 381) 126 meq/L 136-145 L GLUCOSE-STAT [id number] 11:43:00 Test Item Value Reference Range Interpretation Comments GLUCOSE RANDOM (BEAKER) (test code 204 mg/dL 70-110 H = 652) HGB/HCT (H&H) - STAT [id number] 11:43:00 Test Item Value Reference Range Interpretation Comments HEMOGLOBIN (BEAKER) (test code = 8.0 g/dL 13.0-16.8 L 410) HEMATOCRIT (BEAKER) (test code = 24.0 % 40.0-50.0 L 411) BLOOD GAS, [id number] 11:10:00 Test Item Value Reference Range Interpretation [...] (BEAKER) (test code = 1819) 80.0 % [id number] 10:45:13Ochoa Kemp MD - 07/09/2020 10:45 AM CDTFormatting of [...] bycolor dopper flowAll findings communicated to surgical team.[facility] CALCIUM, [id number] 09:03:00 Test Item Value Reference Range Interpretation Comments CALCIUM IONIZED (BEAKER) (test 1.11 mmol/L 1.12-1.27 L code = 698) PH, BLOOD (BEAKER) (test code = 7.42 1810) BLOOD GAS, [id number] 09:03:00 Test Item Value Reference Range Interpretation [...] code = 1819) 50.0 % SODIUM NA-STAT [id number] 09:03:00 Test Item Value Reference Range Interpretation Comments SODIUM (BEAKER) (test code = 381) 130 meq/L 136-145 L HGB/HCT (H&H) - STAT [id number] 09:03:00 Test Item Value Reference Range Interpretation Comments HEMOGLOBIN (BEAKER) (test code = 11.3 g/dL 13.0-16.8 L 410) HEMATOCRIT (BEAKER) (test code = 33.0 % 40.0-50.0 L 411) GLUCOSE-STAT [id number] 09:02:00 Test Item Value Reference Range Interpretation Comments GLUCOSE RANDOM (BEAKER) (test code 105 mg/dL 70-110 = 652) POTASSIUM-STAT [id number] 09:02:00 Test Item Value Reference Range Interpretation Comments POTASSIUM (BEAKER) (test code = 4.2 meq/L 3.6-5.5 379) [id number] 05:08:00 Test Item Value Reference Range Interpretation Comments MAGNESIUM (BEAKER) (test code = 2.0 mg/dL 1.6-2.6 627) 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 ID - EDASIBASIC METABOLIC [id number] 05:08:00 Test Item Value Reference Range Interpretation [...] I S NOT APPLICABLE FOR DIALYSIS PATIEN 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 ID - [id number] 04:57:00 Test Item Value Reference Range Interpretation Comments PARTIAL THROMBOPLASTIN TIME 65.5 seconds 22.5-36.0 H (BEAKER) (test code = 760) CBC W/PLT COUNT & AUTO [id number] 04:36:00 Test Item Value Reference Range Interpretation [...] 0-1 PERCENT (BEAKER) (test code = 2801) SARS-COV2/RT-PCR ([facility])2020-07-08 19:04:00 Test Item Value Reference Range Interpretation Comments SARS-COV2/RT-PCR (test code Negative Not Detected, Negative, = 7348014) See external report for linked test SARS-COV-[address] [facility] (test code = 4827050) Negative results do not preclude SARS-CoV-2 infection [...] of the Act.Fact Sheet for Healthcare Pro viders:https://www.[employer].com/Documents/Xpert%20Xpress%20SARS%20CoV-2/Fact%20Sh eets/302-3802%30EUCI-LQH-9%20HEALTHCARE%20PROVIDERS%20FACT%20SHEET.pdfFact Sheet for Healthcare Patients:https://www.[employer].com/Documents/Xpert%20Xpress%20SARS%20CoV-2/Fact%20Sheets/302-3801%20SARS-COV -2%20PATIENT%20FACT%20SHEET.pdfPerforming Laboratory:[facility], [place] [address]PASOOZQR AGGREGATION: FUNCTION SCREEN 2020-07-08 10:13:00 Test Item Value Reference Range Interpretation Comments [id number] Bashir Orozco MD (BEAKER) (test code = [...] is (BEAKER) (test code = <200,000/mm3, an 695999) abnormal result may be due to a low platelet count rather than a true platelet dysfunction. Platelet Function Screen results may be falsely low with platelet counts<75,000/cu mm.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 ID- [id number] 03:30:00 Test Item Value Reference Range Interpretation Comments PARTIAL THROMBOPLASTIN TIME 66.6 seconds 22.5-36.0 H (BEAKER) (test code = 760) [id number] 03:30:00 Test Item Value Reference Range Interpretation Comments MAGNESIUM (BEAKER) (test code = 2.1 mg/dL 1.6-2.6 627) 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 ID - EDASIBASIC METABOLIC [id number] 03:30:00 Test Item Value Reference Range Interpretation [...] S NOT APPLICABLE FOR DIALYSIS PATIEN TS. 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 ID - EDASICBC W/PLT COUNT & AUTO [id number] 03:09:00 Test Item Value Reference Range Interpretation [...] PERCENT (BEAKER) (test code = 2801) Hemoglobin [id number] 10:55:00 Test Item Value Reference Range Interpretation Comments Hemoglobin A1C (test code = 4548-4) 5.9 % 4.3-6.1 Lab Interpretation (test code = Normal 77215-1) [facility] [id number] 10:55:00 Test Item Value Reference Range Interpretation Comments HEMOGLOBIN A1C (BEAKER) (test code = 5.9 % 4.3-6.1 368) [id number] 05:58:00 Test Item Value Reference Range Interpretation Comments MAGNESIUM (BEAKER) 2.0 mg/dL 1.6-2.6 Specimen slightly (test code = 627) hemolyzed 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 ID - PIAYA LBASIC METABOLIC [id number] 05:58:00 Test Item Value Reference Range Interpretation [...] S NOT APPLICABLE FOR DIALYSIS PATIEN TS. 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 ID - PIAYA [id number] 05:53:00 Test Item Value Reference Range Interpretation Comments PARTIAL THROMBOPLASTIN TIME 74.7 seconds 22.5-36.0 H (BEAKER) (test code = 760) [id number] 22:50:00 Test Item Value Reference Range Interpretation Comments PARTIAL THROMBOPLASTIN TIME 70.0 seconds 22.5-36.0 H (BEAKER) (test code = 760) PROTHROMBIN TIME/[id number] 22:49:00 Test Item Value Reference Range Interpretation [...] Range Interpretation Comments Protein, Total (test 6.6 See_Comment [Autom ated code = 2885-2) message] The system which generated this result transmit rosa isela reference range : 6.0 - 8.3 gm/dL . The reference range was not u sed to interpret th is result as normal/abnormal . Albumin (test code = 3.8 g/dL 3.5-5 28096-8) Alkaline Phosphatase 90 U/L 40-150 (test code = 6768-6) Total Bilirubin (test 0.5 mg/dL 0.2-1.2 code = 1974-2) Sodium (test code = 134 meq/L 136-145 L 2951-2) Potassium (test code 3.3 meq/L 3.5-5.1 L = 2823-3) Chloride (test code = 101 meq/L 98-107 2075-0) CO2 (test code = 24 meq/L 22-29 8-9) BUN (test code = 14 mg/dL 7-21 3094-0) Creatinine (test code 1.01 mg/dL 0.57-1.25 = 2160-0) Glucose (test code = 118 mg/dL 70-105 H 2345-7) Calcium (test code = 8.7 mg/dL 8.4-10.2 61305-5) AST (test code = 23 U/L 5-34 1920-8) ALT (test code = 36 U/L 6-55 1742-6) EGFR (test code = 75 mL/min/1.73 [place] [address]-7) NOT ACCURATE CREATININE CLEARANCE IN PREDICTING GLOMERULAR FILTRATION RATE . ESTIMATED GFR I S NOT APPLICABLE FOR DIALYSIS PATIEN TS. SHERON (test code = SHERON) 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 ID - DB Lab Interpretation Abnormal (test code = 88183-1) [facility] Hospital[facility] [id number] 22:42:00 Test Item Value Reference Range Interpretation Comments Triglycerides (test 117 mg/dL code = 2571-8) Cholesterol (test code 172 mg/dL = 3-3) HDL (test code = 56 mg/dL 2084-9) LDL Calculated (test 93 mg/dL code = 15410-4) SHERON (test code = SHERON) Triglyceride Reference Range: Low Risk <150 Borderline 150-199 High Risk 200-499 Very High Risk >=500 Cholesterol Reference Range: Low Risk <200 Borderline 200-239 High Risk >240 HDL Cholesterol Reference Range: Low Risk >=60 High Risk <40 LDL Cholesterol Reference Range: Optimal <100 Near Optimal 100-129 Borderline 130-159 High 160-189 Very High >=190 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 ID - DB [facility] 22:42:00 Test Item Value Reference Range Interpretation Comments MAGNESIUM (BEAKER) (test code = 2.0 mg/dL 1.6-2.6 627) 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 ID - DBCOMPREHENSIVE METABOLIC [id number] 22:42:00 Test Item Value Reference Range Interpretation [...] S NOT APPLICABLE FOR DIALYSIS PATIEN TS. 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 ID - DBLIPID [id number] 22:42:00 Test Item Value Reference Range Interpretation [...] Borderline 130-159 High 160-189 Very High >=190 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 ID - DBCBC W/PLT COUNT & AUTO [id number] 22:20:00 Test Item Value Reference Range Interpretation [...] 0-1 PERCENT (BEAKER) (test code = 2801) [id number] 05:30:00 Test Item Value Reference Range Interpretation Comments MAGNESIUM (BEAKER) (test code = 2.0 mg/dL 1.6-2.6 627) 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 ID - YANETH MBASIC METABOLIC [id number] 05:30:00 Test Item Value Reference Range Interpretation [...] S NOT APPLICABLE FOR DIALYSIS PATIEN TS. 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 ID - YANETH MPT/[id number] 05:04:00 Test Item Value Reference Range Interpretation [...] mechanical heart valves.CBC W/PLT COUNT & AUTO [id number] 04:50:00 Test Item Value Reference Range Interpretation [...] on 07/03/2020 1:27:14 PMConfirmed by MD Sara, Kaye ob ([id number]) on 07/05/2020 1:51:03 [facility]: FUNCTION [id number] 09:19:00 Test Item Value Reference Range Interpretation Comments [id number] Dee Campbell, (BEAKER) (test code = (electronic 7540) signature) PLATELET COUNT AGG 192 K/CU MM 150-450 (BEAKER) (test code = 6939) ADP (BEAKER) (test code 21 % 62-100 L = 4654) PLATELET RICH 278 k/cu mm 200-300 PLASMA(KADEAKER) (test code = 2134) PLATELET FUNCTION SCREEN Decreased aggregation INTERPRETATION (MARIO ALBERTO) with ADP which (test code = 4655) indicates platelet dysfunction that may be due to medication effect, uremia, or other platelet function disorders. Clinical correlation is required. Platelet Function Screen results may be falsely low with platelet counts<75,000/cu mm.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 ID- [id number] doppler [id number] 08:21:19Ejection FractionSLEH ECHO HEARTLAB MKCKESSON CPACSRight Impression1. There [...] 07/04/2020 MCKINLEY LEE Age 60 Visit Number [id number] Gender Male Accession Number [id number] Date of 1960 Referring Debi Morales Room Number 6101 Physician Lockstitch Machine Operator Domitila Cota RVT Interpreting Jackie Mccoy MD [...] artery with heterogeneous plaque, a peak velocity jx108la/sec and an ICA/CCA peak systolic velocity ratio [...] + + + - Additional Measurements:ICAPSV/CCAPSV 1.51.ICAEDV/CCAEDV 1.93.[facility] Hospital[facility]in Mapping Legs [id number] 08:21:02Ejection [facility] ECHO HEARTLAB MKCKESSON CPACSRight Impression1. [...] 07/04/2020 MCKINLEY LEE Age 60 Visit Number [id number] Gender Male Accession Number [id number] Date of 1960 Referring Debi Morales Room Number 6101 Physician Lockstitch Machine Operator Domitila Cota, RVT Interpreting Rosie Pino, Physician ARIAS ProcedureType of Study: Veins: Lower Extremity Vein [...] ! ! + + + ----+ +[facility] 2020-07-05 05:51:00 Test Item Value Reference Range Interpretation Comments MAGNESIUM (BEAKER) (test code = 1.9 mg/dL 1.6-2.6 627) 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 ID - EDASIBASIC METABOLIC [id number] 05:51:00 Test Item Value Reference Range Interpretation [...] S NOT APPLICABLE FOR DIALYSIS PATIEN TS. 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 ID - [id number] 05:44:00 Test Item Value Reference Range Interpretation Comments PARTIAL THROMBOPLASTIN TIME 77.6 seconds 22.5-36.0 H (BEAKER) (test code = 760) CBC W/PLT COUNT & AUTO [id number] 05:37:00 Test Item Value Reference Range Interpretation [...] 0-1 PERCENT (BEAKER) (test code = 2801) [id number] 22:27:00 Test Item Value Reference Range Interpretation Comments PARTIAL THROMBOPLASTIN TIME 72.6 seconds 22.5-36.0 H (BEAKER) (test code = 760) [id number] 12:16:00 Test Item Value Reference Range Interpretation Comments ACTIVATED CLOTTING TIME 263 sec : 74 -137 seconds, (BEAKER) (test code = Bruce ne: TESTED AT 441) [facility] [address] [address] [facility] [place], [address]: 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/Techni norah ID = [id number] for SA LINAS, FILI [id number] 04:38:00 Test Item Value Reference Range Interpretation Comments MAGNESIUM (BEAKER) 2.0 mg/dL 1.6-2.6 Specimen slightly (test code = 627) hemolyzed 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 ID - EDASIBASIC METABOLIC [id number] 04:38:00 Test Item Value Reference Range Interpretation [...] S NOT APPLICABLE FOR DIALYSIS PATIEN TS. 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 ID - [id number] 04:18:00 Test Item Value Reference Range Interpretation Comments PARTIAL THROMBOPLASTIN TIME 90.4 seconds 22.5-36.0 H (BEAKER) (test code = 760) CBC W/PLT COUNT & AUTO [id number] 04:08:00 Test Item Value Reference Range Interpretation [...] 0-1 PERCENT (BEAKER) (test code = 2801) [id number] 17:48:00 Test Item Value Reference Range Interpretation Comments MAGNESIUM (BEAKER) 2.2 mg/dL 1.6-2.6 Specimen moderately (test code = 627) hemolyzed 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 ID - [id number] 17:48:00 Test Item Value Reference Range Interpretation Comments POTASSIUM (BEAKER) 3.7 meq/L 3.5-5.1 Specimen moderately (test code = 379) hemolyzed 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 ID - [id number] 17:39:00 Test Item Value Reference Range Interpretation Comments PARTIAL THROMBOPLASTIN TIME 51.1 seconds 22.5-36.0 H (MARIO ALBERTO) (test code = 760) PET/CT, CARDIAC PERF REST AND [id number] 14:30:00Reason for exam:->CAD FINAL REPORT PROCEDURE: MYOCARDIAL PERFUSION PET IMAGING (Rest/Stress)CPT CODE: 37413 INDICATION: CAD CARDIOVASCULAR PROFILE:CAD History: CADSymptoms: Chest [...] no prior study for arielle rison. Signed: Kinza Gomez MDReport Verified Date/Time: 07/03/2020 14:30:46 Reading Location: [facility]3rd Flr P327B Nuc Med Reading Room NM Myocardial Perfusion Pet/CT (Rest & Stress)2020-07-03 14:30:00Interface, External Ris In - 07/03/2020 2:32 PM CDTFINAL REPORT PROCEDURE: MYOCARDIAL PERFUSION PET IMAGING (Rest/Stress)CPT CODE: 08178 INDICATION: CAD CARDIOVASCULAR PROFILE:CAD History: CADSymptoms: Chest [...] MDReport Verified Date/Time: 07/03/2020 14:30:46 Reading Location: [facility] 3rd Flr P327B Nuc Med Reading Room Electronica lly signed by: KINZA GOMEZ MD on 07/03/2020 02:30 [facility]Tran[facility] 2D [facility] w/ doppler (cw/pw/color)2020-07-03 13:55:41 Ejection FractionSLEH ECHO HEARTLAB MKBUNNY CPACSInterface, External Ris In - 07/03/2020 1:55 PM CDTTransthoracic Echocardiography Report (TTE) Demographics Patient Name [place] AMIN Dateof Study 07/03/2020 Gender Male Visit Number [id number] Race Unknown Room Number 6101 Number Date of 1960 Referring Physician Brittnee Juan MD Age 60 year(s) Lockstitch Machine Operator Wallace Hoskins Interpreting Ajith Gamboa MD Physician Procedure Type of Study TTE procedure:2DECHO W DOPPLER(CW/PW/COLOR) (STAT) Indications:Acute Chest Pain/ Suspected CAD.Clinical HistoryHGB 12.6HCT 37.5 %HLDHTNTBICORONARY ANGIOPLASTY 2011Contrast Medium: Definity.Height: 69 inches Weight: 104.33 kg [...] CO: 8.92 l/min LVOT CI: 4.07 l/min/m^2[facility]2020-[facility]29 12:47:00 Test Item Value Reference Range Interpretation Comments MAGNESIUM (BEAKER) 2.4 mg/dL 1.6-2.6 Specimen slightly (test code = 627) hemolyzed 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 ID - [id number] 12:47:00 Test Item Value Reference Range Interpretation Comments POTASSIUM (BEAKER) 3.8 meq/L 3.5-5.1 Specimen slightly (test code = 379) hemolyzed 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 ID - EBONIEGTROPONIN [id number] 10:37:00 Test Item Value Reference Range Interpretation [...] failure, acidosis, acute neurological disease, and persistent tachyarrhythmia.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 ID - [id number] 10:25:00 Test Item Value Reference Range Interpretation Comments PARTIAL THROMBOPLASTIN TIME 45.7 seconds 22.5-36.0 H (BEAKER) (test code = 760) SARS-COV2/RT-PCR ([facility])2020-07-03 08:54:00 Test Item Value Reference Range Interpretation Comments SARS-COV2/RT-PCR (test code Negative Not Detected, Negative, = 3901606) See external report for linked test SARS-COV-[address] [facility] (test code = 4348070) Negative results do not preclude SARS-CoV-2 infection [...] of the Act.Fact Sheet for Healthcare Pro viders:https://www.[employer]/Documents/Xpert%20Xpress%20SARS%20CoV-2/Fact%20Sh eets/3023802%13TXXB-INT-2%20HEALTHCARE%20PROVIDERS%20FACT%20SHEET.pdfFact Sheet for Healthcare Patients:https://www.[employer]/Documents/Xpert%20Xpress%20SARS%20CoV-2/Fact%20Sheets/3023801%20SARS-COV -2%20PATIENT%20FACT%20SHEET.pdfPerforming Laboratory:[facility], [place] [address]NHALFDIW [id number] 04:16:00 Test Item Value Reference Range Interpretation Comments TROPONIN I (BEAKER) (test code = 1.51 ng/mL 0.00-0.03 397) Troponin I (TnI) levels [...] failure, acidosis, acute neurological disease, and persistent tachyarrhythmia.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 ID - [id number] 04:07:00 Test Item Value Reference Range Interpretation Comments MAGNESIUM (BEAKER) (test code = 1.9 mg/dL 1.6-2.6 627) 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 ID - EDASIBASIC METABOLIC [id number] 04:07:00 Test Item Value Reference Range Interpretation [...] S NOT APPLICABLE FOR DIALYSIS PATIEN TS. 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 ID - EDASILACTIC ACID, [id number] 04:00:00 Test Item Value Reference Range Interpretation Comments LACTATE BLOOD VENOUS (2) (BEAKER) 1.93 mmol/L 0.50-2.20 (test code = 2872) 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 ID - EDASIBlood gas, [id number] 03:56:00 Test Item Value Reference Range Interpretation Comments pH, Steve (test code = 7.43 7.32-7.42 H 2746-6) pCO2, Steve (test code = 39 See_Comment L [Aut omated message] 755) The system whic h generated this result transmit rosa isela reference range : 41 - 51 mmHg. The reference range was not used to interpret this result as normal/abnormal . pO2, Steve (test code = 64 See_Comment H [Auto mated message] 3245-2) The system whic h generated this result transmit rosa isela reference range : 25 - 40 mmHg. The reference range was not used to interpret this result as normal/abnormal . O2 Sat, Steve (test code 93.1 % 40-70 H = 2711-0) HCO3, Steve (test code = 25 mmol/L 21-29 01325-1) Base Excess, Steve (test 0.9 mmol/L -2-3 code = 1927-3) Patient Temperature 37.0 C (test code = 8310-5) FIO2 (test code = 1819) 21 % Lab Interpretation Abnormal (test code = 76335-5) [facility] [id number] 03:56:00 Test Item Value Reference Range Interpretation [...] (BEAKER) (test code = 1819) 21.0 % [id number] 03:52:00 Test Item Value Reference Range Interpretation Comments PARTIAL THROMBOPLASTIN TIME 39.8 seconds 22.5-36.0 H (BEAKER) (test code = 760) CBC W/PLT COUNT & AUTO [id number] 03:42:00 Test Item Value Reference Range Interpretation [...] = 2801) RAD, CHEST, 1 VIEW, NON [id number] 23:05:00Reason for exam:- >dyspneaShould this be performed [...] MDReport Verified Date/Time: 07/02/2020 23:05:36 LACTIC ACID, [id number] 22:59:00 Test Item Value Reference Range Interpretation Comments LACTATE BLOOD VENOUS 3.11 mmol/L 0.50-2.20 H Specime n slightly (2) (BEAKER) (test hemolyzed code = 2872) 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 ID - JANETTEAYA [id number] 22:39:00 Test Item Value Reference Range Interpretation Comments MAGNESIUM (BEAKER) (test code = 1.7 mg/dL 1.6-2.6 627) 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 ID - DBHEMOGLOBIN [id number] 22:14:00 Test Item Value Reference Range Interpretation Comments HEMOGLOBIN A1C (BEAKER) (test code = 5.8 % 4.3-6.1 368) LACTIC ACID, [id number] 22:00:00 Test Item Value Reference Range Interpretation Comments LACTATE BLOOD VENOUS 3.07 mmol/L 0.50-2.20 H Specime n slightly (2) (BEAKER) (test hemolyzed code = 2872) 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 ID - DBHepatic function [id number] 21:57:00 Test Item Value Reference Range Interpretation Comments Protein, Total (test 7.8 See_Comment [Autom ated code = 2885-2) message] The system which generated this result transmitted reference range : 6.0 - 8.3 gm/dL . The reference range was not used to interpr et this result as normal/abnormal . Albumin (test code = 4.5 g/dL 3.5-5 45558-3) Total Bilirubin (test 0.5 mg/dL 0.2-1.2 code = 1975-2) Bilirubin, Direct 0.3 mg/dL 0.1-0.5 (test code = 1967-7) Alkaline Phosphatase 100 U/L 40-150 (test code = 6768-6) AST (test code = 31 U/L 5-34 1920-8) ALT (test code = 40 U/L 6-55 1742-6) SHERON (test code = SHERON) 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 ID - JAEL Mckinnon ID - DB Lab Interpretation Normal (test code = 52633-0) [facility] HospitalLIPID [id number] 21:57:00 Test Item Value Reference Range Interpretation [...] Borderline 130-159 High 160-189 Very High >=190 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 ID - DBHEPATIC FUNCTION [id number] 21:57:00 Test Item Value Reference Range Interpretation [...] (test code = 40 U/L 6-55 347) 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 ID - JAEL COperator ID - [id number] 21:49:00 Test Item Value Reference Range Interpretation Comments TSH (test code = 1.364 See_Comment [Automated 57352-7) message] The system which generated this result transmit rosa isela reference range : 0.350 - 4.940 uIU/mL. The reference range was not used to interpret this result as normal/abnormal . SHERON (test code = SHERON) 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 ID - JAEL C Lab Interpretation Normal (test code = 17546-5) [id number] 21:49:00 Test Item Value Reference Range Interpretation Comments THYROID STIMULATING HORMONE 1.364 uIU/mL 0.350-4.940 (BEAKER) (test code = 772) 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 ID - JAEL CTROPONIN [id number] 21:41:00 Test Item Value Reference Range Interpretation Comments TROPONIN I (BEAKER) (test code = 0.82 ng/mL 0.00-0.03 HH [...] failure, acidosis, acute neurological disease, and persistent tachyarrhythmia.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 ID - JAEL CB-type Natriuretic Factor (BNP)2020-07-02 21:36:00 Test Item Value Reference Range Interpretation Comments BNP (test code = 95109-0) 68 pg/mL 0-100 SHERON (test code = SHERON) 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 ID - JAEL C Lab Interpretation (test Normal code = 24426-7) [facility] NATRIURE[facility]IC FACTOR (BNP)2020-07-02 21:36:00 Test Item Value Reference Range Interpretation Comments B-TYPE NATRIURETIC PEPTIDE (BEAKER) 68 pg/mL 0-100 (test code = 700) 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 ID - JAEL CBASIC METABOLIC [id number] 21:26:00 Test Item Value Reference Range Interpretation [...] S NOT APPLICABLE FOR DIALYSIS PATIEN TS. 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 ID - JAEL [id number] 21:25:00 Test Item Value Reference Range Interpretation [...] for patients wiht mechanical heart valves.LACTIC ACID, [id number] 21:24:00 Test Item Value Reference Range Interpretation Comments LACTATE BLOOD VENOUS (2) (BEAKER) 3.93 mmol/L 0.50-2.20 H (test code = 2872) 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 ID - JAEL CPROTHROMBIN TIME/[id number] 21:22:00 Test Item Value Reference Range Interpretation [...] mechanical heart valves.CBC W/PLT COUNT & AUTO [id number] 21:10:00 Test Item Value Reference Range Interpretation [...] 0-1 PERCENT (BEAKER) (test code = 2801) TISSUE [id number] 13:46:00Surgical Pathology Report Case: [id number] Authorizing Provider: Ernst Goyal Collected: 10/12/2019 1440 Lis Lee MD [facility] Received: 10/13/2019 0810 Perioperative Services Pathologist: Sabi John MD Specimen: Condyle,Right Knee CONDYLES, RIGHT KNEE, ARTHROPLASTY: - DEGENERATIVE CHANGES CONSISTENT WITH OSTEOARTHRITIS - SYNOVIUM WITH REACTIVE CHANGES Signing Pathologist Direct Phone Line: [phone] signed by Sabi John MD on 10/19/2019 at 1:46 [id number], [id number] diagnosis: osteoarthritis or right knee, unspecified osteoarthritis [...] cortical bone measuring up to 0.2 cm thic k. Cabin Cleaning Supervisor sections are submitted as A1-A3 following decalcification. PA/pl Performed.POCT-GLUCOSE [id number] 07:23:00 Test Item Value Reference Range Interpretation Comments POC-GLUCOSE METER 145 mg/dL 70-110 H : TESTED A T BLSMC 7200 (BEAKER) (test code CAMBRIDG E BLDG A, = 1538) [place] [id number] 0: 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/Techni norah ID = [id number] for Jennifer Woodruff BASIC METABOLIC [id number] 06:29:00 Test Item Value Reference Range Interpretation [...] APPLICABLE FOR DIALYSIS PATIEN TS. HEMOGLOBIN AND [id number] 06:16:00 Test Item Value Reference Range Interpretation Comments HEMOGLOBIN (BEAKER) (test code = 12.1 GM/DL 13.7-17.5 L 410) HEMATOCRIT (BEAKER) (test code = 36.7 % 40.1-51.0 L 411) POCT-GLUCOSE [id number] 21:12:00 Test Item Value Reference Range Interpretation Comments POC-GLUCOSE METER 195 mg/dL 70-110 H : TESTED A T BLSMC 7200 (BEAKER) (test code CAMBRIDG E BLDG A, = 1538) [place] [id number] 0: 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/Techni norah ID = [id number] for INESSA SWAIN RAD, KNEE, 1 OR 2 VIEWS, [id number] 16:44:00Reason for exam:->s/p r tkaShould this be performed at the bedside?->YesFINAL REPORT COMPARISON: None. FINDINGS: 2 views of the right knee are submitted. Patient is presumably status post recent right knee replacement. There is anatomic alignment of the surgical prosthesis. There is postoperative gas in the surrounding soft tissues . Signed: Satya Huff MDReport Verified Date/Time: 10/12/2019 16:44:57 Reading Location: [facility] Radiology Reading Room
[2021-01-12] MEDS ORDERED: NA CHLORIDE 0.9% 1,000 ML ONE (13:53)
[2021-01-12] MEDS ORDERED: HYDROMORPHONE HCL 1 MG/ML INJ ONE ×2 (13:53→15:03)
[2021-01-12] MEDS ORDERED: ONDANSETRON 4 MG/2 ML VIAL ONE (13:53)
[2021-01-12 15:05] LABS: Absolute Lymphocytes (CBC) 1.5 K/uL (0.7-4.9); Basophils % 0.8 % (0-1.3); Hematocrit 40.8 % (39.6-49.0); Lymphocytes % 18.1 % (15.3-44.8); MPV 9.2 fL (7.6-11.3); RBC Red Blood Cell Count 4.46 M/uL (4.33-5.43)
[2021-01-12 15:06] LABS: Protime INR 1.07
--- NOTE | 2021-01-12 15:45 | RAD REPORT ---
EXAM DESCRIPTION: RAD - Femur Right - 01/12/2021 3:20 pm CLINICAL HISTORY: Deformity;Painfall COMPARISON: None FINDINGS: Spiral fracture of the distal femoral shaft is present there is 1 full shaft width lateral displacement with 90 degrees lateral rotation deformity. Approximately 20 degree angulation componen t also present. Fracture line continues from the shaft into the distal femur abutting the total knee prosthesis in place. No radiographic evidence for loosening. Fracture line is present in the lateral femoral condyle. No proximal tibia injury. Minimal hip joint degenerative changes are present. IMPRESSION: Spiral fracture distal right femur with displacement and rotation deformity as detailed. Fracture line continues into the distal femur involving the lateral femoral condyle and abutting femo ral component of the knee implant.
--- NOTE | 2021-01-12 15:47 | RAD REPORT ---
EXAM DESCRIPTION: RAD - Tib Fib Right - 01/12/2021 3:20 pm CLINICAL HISTORY: PAIN COMPARISON: None FINDINGS: No fracture of the tibia or fibula identified. Cortical changes of the distal fibula shaft appear to be from old trauma remottling. Tibial plateau is not incorporated into the [id number]-wg-czxs. No tibial plateau abnormality seen on the right femur films. No dislocation or pathologic periosteal change. Arterial calcifications are present. No foreign body or other soft tissue abnormality. IMPRESSION: No acute right tib-fib abnormality seen.
[2021-01-12 16:11] LABS: Potassium 4.1 mmol/L (3.5-5.1)
[2021-01-12] MEDS ORDERED: HYDROMORPHONE HCL 0.5 MG/0.5 ML INJ ONE ×3 (16:24→18:11)
--- NOTE | 2021-01-12 16:58 | ER ---
Nurse's Notes [facility] Name: Sergey Emanuel Jr Age: 60 yrs Sex: Male : 1960 Arrival Date: 01/12/2021 Time: 13:22 Bed 2 Private MD: Diagnosis: Displaced comminuted fracture of shaft of right femur Presentation: 01/12 13:21 Chief complaint: Slipped on algae when he stepped off the dock, landed supine with hb right leg bent back underneath torso. Obvious deformity noted to right knee. Care prior to arrival: None. Mechanism of Injury: Fall. 13:21 Method Of Arrival: Wheelchair hb 13:29 Acuity: MARYA 2 hb 13:31 Coronavirus screen: At this time, the client does not indicate any symptoms associated hb with coronavirus-19. Onset of symptoms was January 12, 2021. 13:40 Ebola Screen: Patient denies exposure to infectious person. Patient denies travel to an Ebola-affected area in the 21 days before illness onset. Initial Sepsis Screen: Does the patient meet any 2 criteria? No. Patient's initial sepsis screen is negative. Does the patient have a suspected source of infection? No. Patient's initial sepsis screen is negative. Risk Assessment: Do you want to hurt yourself or someone else? Patient reports no desire to harm self or others. 18:42 Trauma event details: Injury occurred in the [facility], Injury occurred: in a recreational area. Injury occurred: January 12, 2021. Trauma Activation: Alert Physician: ED Physician; Name: ; Notified At: ; Arrived At: Physician: General Surgeon; Name: ; Notified At: ; Arrived At: Physician: Radiology; Name: ; Notified At: ; Arrived At: Physician: Respiratory; Name: ; Notified At: ; Arrived At: Physician: Lab; Name: ; Notified At: ; Arrived At: Historical: - Allergies: 13:32 No Known Allergies; hb - Home Meds: 13:59 amiodarone 200 mg Oral tab 1 tab once daily [Active]; atorvastatin 40 mg Oral tab 1 tab ss once daily [Active]; baclofen 20 mg Oral tab 1 tab 3 times per day [Active]; aspirin 81 mg Oral TbEC 1 tab once daily [Active]; carvedilol 12.5 mg Oral tab daily [Active]; clopidogrel 75 mg Oral tab 1 tab once daily [Active]; ferrous sulfate 325 mg (65 mg iron) Oral tab [Active]; folic acid 1 mg Oral tab once daily [Active]; furosemide 40 mg Oral tab 1 tab 2 times per day [Active]; gabapentin 600 mg Oral tab twice a day [Active]; hydrochlorothiazide 25 mg Oral tab 1 tab once daily [Active]; pantoprazole 40 mg Oral TbEC 1 tab 2 times per day [Active]; potassium chloride 20 mEq Oral TbER 1 tab 2 times per day [Active]; tamsulosin 0.4 mg Oral cp24 1 cap once daily [Active]; - PMHx: 13:59 Myocardial infarction; CHF; iron deficiency anemia; ss - Immunization history:: Adult Immunizations up to date. - Immunization history: Last tetanus immunization: - up to date. < 5 years ago. - Social history:: Smoking status: Patient/guardian denies using tobacco, but has a distant history of tobacco abuse. Screenin:50 Abuse screen: Denies threats or abuse. Denies injuries from another. Nutritional ss screening: No deficits noted. Tuberculosis screening: Never had TB. Fall Risk None identified. Primary Survey: 13:40 NO uncontrolled hemorrhage observed. A: The patient is alert. Airway: patent, No ss supplemental oxygen in use on arrival. Oral cavity: clear, Trachea midline. Breathing/Chest: Respiratory pattern: regular, Respiratory effort: spontaneous, unlabored, Breath sounds: clear. Circulation: Pulses: palpable right radial artery, right posterior tibial artery, left radial artery and left posterior tibial artery. Disability Alert. Exposure/Environment: All clothing and personal items were removed. Forensic evidence collection is not deemed to be indicated at this time. Items placed in patient belonging bag. There is no evidence of uncontrolled external bleeding. Obvious injury(ies) are noted at this time: R knee/ upper thigh swelling noted A warming method has been applied: A warm blanket has been provided to the patient. 14:15 Reassessment Airway Airway Breathing/Chest Respiratory pattern Regular Respiratory ss effort Spontaneous Unlabored Breath sounds Clear Chest inspection Symmetrical Circulation Pulses Palpable Color Broussard Temperature Warm Disability Alert. Secondary Survey: 13:40 HEENT: No deficits noted. Head No injury/deformity Face No injury/deformity Eyes: No ss injury or deformity noted. Ears: clear Nose: clear Throat: No injury or deformity noted. is clear. Gastrointestinal: Abdomen is non-distended, Other Round Bowel sounds present in all quadrants. Palpation No deficit noted. : No deficits noted. Musculoskeletal: Range of motion: limited in right hip and right knee Reports pain in right leg. Injury Description: Abrasion sustained to right knee is dirty, was sustained 1-2 hours ago. Assessment: 13:30 General: Appears uncomfortable, Behavior is calm, cooperative, Is joking with and ss ED staff. . Denies fever, feeling ill, fatigue, chills. Pain: Complains of pain in right quadriceps and right knee Pain currently is 10 out of 10 on a pain scale. Quality of pain is described as aching, throbbing, Pain began suddenly, Is continuous, Aggravated by increased activity, repositioning. Neuro: Level of Consciousness is awake, alert, obeys commands, Oriented to person, place, time, situation, Speech is normal. Cardiovascular: Pulses are palpable in right radial artery, right dorsalis pedis artery, left radial artery and left dorsalis pedis artery. Respiratory: Airway is patent Trachea midline Respiratory effort is even, unlabored, Respiratory pattern is regular, symmetrical, Breath sounds are clear bilaterally. Crepitus is absent Denies cough, shortness of breath labored breathing, pain with respiration, pain with cough, pain with movement. GI: Abdomen is round Patient currently denies abdominal pain, diarrhea, nausea, vomiting. : No signs and/or symptoms were reported regarding the genitourinary system. EENT: Nares are clear Oral mucosa is moist. Derm: Skin is intact, is healthy with good turgor, Skin is dry, Skin is pink, warm \T\ dry. normal. Musculoskeletal: Range of motion: limited in right hip and right knee Bony deformity noted of right quadriceps Swelling present in right quadriceps and right knee. Injury Description: Abrasion sustained to right knee is dirty, scabbed, sand present in wound. 13:49 Reassessment: XRAY at bedside. Pt reports pain relief from Dilaudid administration. ss 13:59 Reassessment: PT to XRAY at this time VIA stretcher. ss 14:30 Cardiovascular: Pulses are palpable in right dorsalis pedis artery and left dorsalis ss pedis artery. 15:00 Reassessment: Patient appears in no apparent distress at this time. Patient and/or ss family updated on plan of care and expected duration. Pain level reassessed. Patient is alert, oriented x 3, equal unlabored respirations, skin warm/dry/pink. Cardiovascular: Pulses are palpable in right dorsalis pedis artery and left dorsalis pedis artery. 15:30 Reassessment: Patient and/or family updated on plan of care and expected duration. Pain ss level reassessed. Cardiovascular: Pulses are palpable in right dorsalis pedis artery and left dorsalis pedis artery. 17:21 Reassessment: Patient appears in no apparent distress at this time. PT reports that ss after medication administration his pain decreases to 8/10, but does not last very long. Awaiting covid results prior to transfer. Spoke with label pinker who states results will be back in 16 minutes. 18:00 Reassessment: Report given to ELIAN Odell at [facility]. hb 18:14 Reassessment: EMS ETA 20-25 minutes. hb 18:39 Cardiovascular: Pulses are palpable in right dorsalis pedis artery and left dorsalis ss pedis artery. Respiratory: Airway is patent Respiratory effort is even, unlabored, Respiratory pattern is regular, symmetrical. Derm: Skin is pink, warm \T\ dry. normal. Vital Signs: 13:31 BP 190 / 105; Pulse 86; Resp 20; Temp 97.1; Pulse Ox 97% on R/A; Weight 102.06 kg; hb Height 5 ft. 8 in. (172.72 cm); Pain 10/10; 13:50 BP 174 / 99; Pulse 85; Resp 16; Pulse Ox 98% on R/A; ss 14:51 Pulse Ox 85% on R/A; sv 16:09 BP 147 / 90; Pulse 92; Resp 18; Pulse Ox 95% on 2 lpm NC; ss 16:56 BP 151 / 97; Pulse 94; Resp 18; Pulse Ox 97% ; sv 18:19 BP 133 / 73; Pulse 94; Resp 16; Pulse Ox 96% on R/A; Pain 8/10; ss 13:31 Body Mass Index 34.21 (102.06 kg, 172.72 cm) hb 14:51 Pt placed on O2 \T\ 3L per NC. O2 sat up to 95% sv [place] Coma Score: 13:50 Eye Response: spontaneous(4). Verbal Response: oriented(5). Motor Response: obeys ss commands(6). Total: 15. 14:00 Eye Response: spontaneous(4). Verbal Response: oriented(5). Motor Response: obeys ss commands(6). Total: 15. 15:00 Eye Response: spontaneous(4). Verbal Response: oriented(5). Motor Response: obeys ss commands(6). Total: 15. Trauma Score (Adult): 13:50 Eye Response: spontaneous(1); Verbal Response: oriented(1); Motor Response: obeys ss commands(2); Systolic BP: > 89 mm Hg(4); Respiratory Rate: 10 to 29 per min(4); Sancho Score: 15; Trauma Score: 12 14:00 Eye Response: spontaneous(1); Verbal Response: oriented(1); Motor Response: obeys ss commands(2); Systolic BP: > 89 mm Hg(4); Respiratory Rate: 10 to 29 per min(4); Sancho Score: 15; Trauma Score: 12 15:00 Eye Response: spontaneous(1); Verbal Response: oriented(1); Motor Response: obeys ss commands(2); Systolic BP: > 89 mm Hg(4); Respiratory Rate: 10 to 29 per min(4); [place] Score: 15; Trauma Score: 12 ED Course: 13:22 Patient arrived in ED. hb 13:26 Suraj Weaver PA is PHCP. cp 13:26 Rui Alvarez MD is Attending Physician. cp 13:31 Triage completed. hb 13:35 Inserted saline lock: 20 gauge in right forearm, using aseptic technique. ss 13:40 Patient maintains SpO2 saturation greater than 95% on room air. ss 13:40 Arm band placed on right wrist. ss 13:48 Rehana Rocha, ELIAN is Primary Nurse. ss 13:50 Patient has correct armband on for positive identification. Bed in low position. Call ss light in reach. Side rails up X 1. desk monitor on. Pulse ox on. NIBP on. Warm blanket given. R leg propped up with towels for comfort. 14:00 Thermoregulation: warm blanket given to patient. ss 14:26 called the office of Dr. Abram Morales at [phone] spoke with the [facility] eb service they will page the second language tutor orthopedic and someone should be calling shortly. 14:[address] Leger the orthopedic surgeon second language tutor for Dr. Morales with Suraj maher for patient transfer consultation. 15:20 XRAY Femur RIGHT In Process Unspecified. EDMS 15:20 XRAY Tib Fib RIGHT In Process Unspecified. EDMS 15:30 Orthoglass splint: Posterior long leg splint applied on right leg. jp3 16:07 initiated a transfer with ERENDIRA Callahan from the [facility]. eb 16:[address] Hollins the orthopedic second language tutor for [facility] with Suraj Raman for eb patient transfer consultation. 16:[address] Moreno the hospitalist second language tutor for [facility] with Suraj Raman for patient transfer consultation. 17:21 administrative approval given by ERENDIRA Callahan / patient has been accepted to [facility] 4E 405/ Dr. Connie Moreno has accepted the patient in transfer/ report to be called to [phone]. 18:39 No provider procedures requiring assistance completed. Patient transferred, IV remains ss in place. Administered Medications: 13:47 Drug: Zofran (Ondansetron) 4 mg Route: IVP; Site: right forearm; ss 14:48 Follow up: Response: No adverse reaction ss 13:48 Drug: Dilaudid (HYDROmorphone) 1 mg Route: IVP; Site: right forearm; ss 16:11 Follow up: Response: No adverse reaction; Pain is decreased ss 13:49 Not Given (Physician Discretion): NS 0.9% 1000 ml IV at 1000 ml/hr Per protocol; 1000 ss mL bolus 14:49 Drug: Dilaudid (HYDROmorphone) 1 mg Route: IVP; Site: right forearm; ss 14:49 Follow up: Response: No adverse reaction ss 15:18 CANCELLED (Physician Discretion): Dilaudid (HYDROmorphone) 1 mg IVP once; RASS on cp ADMIN: Combtv4, Very Agttd3, Agttd2, Rstlss1, AlertClm0, Drwsy-1, Lt Sdtn-2, Mod Sdtn-3, Dp Sdtn-4, UnArsble-5 16:10 Drug: Dilaudid (HYDROmorphone) 0.5 mg Route: IVP; Site: right forearm; 17:09 Follow up: Response: No adverse reaction; Pain is decreased ss 17:00 Drug: Dilaudid (HYDROmorphone) 0.5 mg Route: IVP; Site: right forearm; ss 17:10 Follow up: Response: No adverse reaction; Pain is decreased ss 17:57 Drug: Dilaudid (HYDROmorphone) 0.5 mg Route: IVP; Site: right forearm; ss 18:34 Follow up: Response: No adverse reaction ss Intake: 13:50 PO: 0ml; Total: 0ml. sv Output: 13:50 Urine: 0ml; Total: 0ml. sv Outcome: 16:58 ER care complete, transfer ordered by MD. 18:39 Transferred by ground EMS Transfer form completed. X-rays sent w/ patient. Note: [facility] 18:39 Condition: stable 18:39 Instructed on the need for transfer. 18:41 Patient's length of stay in the Emergency Department was greater than 2 hours. TRANSFERPatient's length of stay extended due to 18:42 Patient left the ED. Signatures: Dispatcher [employer] Tiarra Vargas RN RN Rehana Rocha RN RN Suraj Weaver PA PA cp Baxter, Heather, ELIAN RN Dee Herrera Jacob jp3 Corrections: (The following items were deleted from the chart) 14:48 13:48 Dilaudid (HYDROmorphone) 1 mg IVP in right forearm [facility]
--- NOTE | 2021-01-12 16:58 | EDPHYS ---
Physician Documentation [facility] Name: Sergey Emanuel Jr Age: 60 yrs Sex: Male : 1960 Arrival Date: 01/12/2021 Time: 13:22 Bed 2 Private MD: ED Physician Rui Alvarez HPI: 01/12 13:30 This 60 yrs old Male presents to ER via Unassigned with complaints of Fall cp Injury. 13:30 Details of fall: The patient fell from an upright position, while walking, and struck cp thad surface. Onset: The symptoms/episode began/occurred just prior to arrival. Associated injuries: The patient sustained right leg. Historical: - Allergies: 13:32 No Known Allergies; hb - Home Meds: 13:59 amiodarone 200 mg Oral tab 1 tab once daily [Active]; atorvastatin 40 mg Oral tab 1 tab ss once daily [Active]; baclofen 20 mg Oral tab 1 tab 3 times per day [Active]; aspirin 81 mg Oral TbEC 1 tab once daily [Active]; carvedilol 12.5 mg Oral tab daily [Active]; clopidogrel 75 mg Oral tab 1 tab once daily [Active]; ferrous sulfate 325 mg (65 mg iron) Oral tab [Active]; folic acid 1 mg Oral tab once daily [Active]; furosemide 40 mg Oral tab 1 tab 2 times per day [Active]; gabapentin 600 mg Oral tab twice a day [Active]; hydrochlorothiazide 25 mg Oral tab 1 tab once daily [Active]; pantoprazole 40 mg Oral TbEC 1 tab 2 times per day [Active]; potassium chloride 20 mEq Oral TbER 1 tab 2 times per day [Active]; tamsulosin 0.4 mg Oral cp24 1 cap once daily [Active]; - PMHx: 13:59 Myocardial infarction; CHF; iron deficiency anemia; ss - Immunization history:: Adult Immunizations up to date. - Immunization history: Last tetanus immunization: - up to date. < 5 years ago. - Social history:: Smoking status: Patient/guardian denies using tobacco, but has a distant history of tobacco abuse. ROS: 13:35 MS/extremity: Positive for injury or acute deformity, decreased range of motion, pain, cp of the right leg. 13:35 Constitutional: Negative for body aches, chills, fever. cp 13:35 Cardiovascular: Negative for chest pain. 13:35 Respiratory: Negative for cough, shortness of breath, wheezing. 13:35 Abdomen/GI: Negative for abdominal pain, nausea, vomiting, and diarrhea. 13:35 Back: Negative for pain at rest, pain with movement. 13:35 Skin: Positive for abrasion(s), of the anterior aspect right knee. 13:35 Neuro: Negative for altered mental status, headache, loss of consciousness, syncope. 13:35 All other systems are negative. Exam: 13:40 Constitutional: The patient appears in no acute distress, alert, awake, cp non-diaphoretic, non-toxic, well developed, well nourished, uncomfortable. 13:40 Head/Face: Normocephalic, atraumatic. cp 13:40 Eyes: Periorbital structures: appear normal, Conjunctiva: normal, no exudate, no injection, Lids and lashes: appear normal, bilaterally. 13:40 ENT: External ear(s): are unremarkable, Nose: is normal, Posterior pharynx: Airway: no evidence of obstruction, patent. 13:40 Neck: C-spine: vertebral tenderness, is not appreciated, crepitus, is not appreciated, ROM/movement: is normal, is supple, without pain, no range of motions limitations. 13:40 Chest/axilla: Inspection: normal, Palpation: is normal, no crepitus, no tenderness. 13:40 Cardiovascular: Rate: normal, Rhythm: regular, Edema: is not appreciated, JVD: is not appreciated. 13:40 Respiratory: the patient does not display signs of respiratory distress, Respirations: normal, no use of accessory muscles, no retractions, labored breathing, is not present, Breath sounds: are clear throughout, no decreased breath sounds. 13:40 Abdomen/GI: Inspection: abdomen appears normal, Palpation: abdomen is soft and non-tender, in all quadrants. 13:40 Back: pain, is absent, ROM is normal, vertebral tenderness, is not appreciated. 13:40 Musculoskeletal/extremity: Extremities: grossly normal except: noted in the distal right femur: deformity, pain, swelling, tenderness, ROM: limited passive range of motion due to pain, in the right knee and right hip, Pulses: noted to be 2+ in the right dorsalis pedis artery, Severe pain noted. Weight bearing: is unable to bear weight. 13:40 Neuro: Orientation: to person, place \T\ time. Mentation: is normal. Vital Signs: 13:31 BP 190 / 105; Pulse 86; Resp 20; Temp 97.1; Pulse Ox 97% on R/A; Weight 102.06 kg; hb Height 5 ft. 8 in. (172.72 cm); Pain 10/10; 13:50 BP 174 / 99; Pulse 85; Resp 16; Pulse Ox 98% on R/A; ss 14:51 Pulse Ox 85% on R/A; sv 16:09 BP 147 / 90; Pulse 92; Resp 18; Pulse Ox 95% on 2 lpm NC; ss 16:56 BP 151 / 97; Pulse 94; Resp 18; Pulse Ox 97% ; sv 18:19 BP 133 / 73; Pulse 94; Resp 16; Pulse Ox 96% on R/A; Pain 8/10; ss 13:31 Body Mass Index 34.21 (102.06 kg, 172.72 cm) hb 14:51 Pt placed on O2 \T\ 3L per NC. O2 sat up to 95% sv Sancho Coma Score: 13:50 Eye Response: spontaneous(4). Verbal Response: oriented(5). Motor Response: obeys ss commands(6). Total: 15. 14:00 Eye Response: spontaneous(4). Verbal Response: oriented(5). Motor Response: obeys ss commands(6). Total: 15. 15:00 Eye Response: spontaneous(4). Verbal Response: oriented(5). Motor Response: obeys ss commands(6). Total: 15. Trauma Score (Adult): 13:50 Eye Response: spontaneous(1); Verbal Response: oriented(1); Motor Response: obeys ss commands(2); Systolic BP: > 89 mm Hg(4); Respiratory Rate: 10 to 29 per min(4); Sancho Score: 15; Trauma Score: 12 14:00 Eye Response: spontaneous(1); Verbal Response: oriented(1); Motor Response: obeys ss commands(2); Systolic BP: > 89 mm Hg(4); Respiratory Rate: 10 to 29 per min(4); Sancho Score: 15; Trauma Score: 12 15:00 Eye Response: spontaneous(1); Verbal Response: oriented(1); Motor Response: obeys ss commands(2); Systolic BP: > 89 mm Hg(4); Respiratory Rate: 10 to 29 per min(4); [place] Score: 15; Trauma Score: 12 MDM: 13:30 Patient medically screened. 14:41 Test interpretation: by ED physician or midlevel provider: xrays of right femur show cp oblique distal femur fracture, xrays of right tib/fib negative for fracture. 16:00 Data reviewed: vital signs, nurses notes, lab test result(s), radiologic studies, plain cp films, I have discussed the patient's presentation/case with the attending Emergency Department Physician;. 16:00 Counseling: I had a detailed discussion with the patient and/or guardian regarding: the historical points, exam findings, and any diagnostic results supporting the discharge/admit diagnosis, lab results, radiology results, patient requesting transfer to services of DR Ernst Morales, orthopedist. 16:45 Physician consultation: was contacted at 16:45, regarding regarding transfer, to [facility]. patient's condition, consulting physician will be DR Hollins, orthopedist, requests transfer to services of hospitalist. 16:56 Physician consultation: was contacted at 16:56, regarding regarding transfer, to [facility]. patient's condition, accepting physician will be DR Moreno. 01/12 13:30 Order name: Basic Metabolic Panel; Complete Time: 16:36 01/12 16:37 Interpretation: Normal except: NA 134; CO2 19; GLUC 119; GFR 64. 01/12 13:30 Order name: CBC with Diff; Complete Time: 15:16 01/12 15:16 Interpretation: Normal except: HGB 13.5; RDW 16.2. 01/12 13:30 Order name: Type And Screen; Complete Time: 16:37 cp 01/12 13:30 Order name: PT-INR; Complete Time: 15:16 cp 01/12 13:30 Order name: Ptt, Activated; Complete Time: 15:16 01/12 15:14 Order name: ABO/RH no charge; Complete Time: 15:16 EDMS 01/12 13:30 Order name: XRAY Femur RIGHT; Complete Time: 15:54 cp 01/12 13:30 Order name: XRAY Tib Fib RIGHT; Complete Time: 15:54 cp 01/12 17:32 Order name: SARS-COV-2 RT PCR EDMS 01/12 13:30 Order name: Labs collected and sent; Complete Time: 14:49 cp 01/12 13:30 Order name: Wound Care: please clean and irrigate wound; Complete Time: 16:12 cp 01/12 13:51 Order name: Labs - recollect needed: recollect all the blood hemolyzed; Complete Time: eb 14:48 01/12 15:18 Order name: Splint - Posterior Leg: posterior long leg; Complete Time: 16:11 cp 01/12 15:18 Order name: Oxygen Per Protocol; Complete Time: 16:11 cp Administered Medications: 13:47 Drug: Zofran (Ondansetron) 4 mg Route: IVP; Site: right forearm; ss 14:48 Follow up: Response: No adverse reaction ss 13:48 Drug: Dilaudid (HYDROmorphone) 1 mg Route: IVP; Site: right forearm; ss 16:11 Follow up: Response: No adverse reaction; Pain is decreased ss 13:49 Not Given (Physician Discretion): NS 0.9% 1000 ml IV at 1000 ml/hr Per protocol; 1000 ss mL bolus 14:49 Drug: Dilaudid (HYDROmorphone) 1 mg Route: IVP; Site: right forearm; ss 14:49 Follow up: Response: No adverse reaction ss 15:18 CANCELLED (Physician Discretion): Dilaudid (HYDROmorphone) 1 mg IVP once; RASS on cp ADMIN: Combtv4, Very Agttd3, Agttd2, Rstlss1, AlertClm0, Drwsy-1, Lt Sdtn-2, Mod Sdtn-3, Dp Sdtn-4, UnArsble-5 16:10 Drug: Dilaudid (HYDROmorphone) 0.5 mg Route: IVP; Site: right forearm; ss 17:09 Follow up: Response: No adverse reaction; Pain is decreased ss 17:00 Drug: Dilaudid (HYDROmorphone) 0.5 mg Route: IVP; Site: right forearm; ss 17:10 Follow up: Response: No adverse reaction; Pain is decreased ss 17:57 Drug: Dilaudid (HYDROmorphone) 0.5 mg Route: IVP; Site: right forearm; ss 18:34 Follow up: Response: No adverse reaction ss Disposition: 18:21 Chart complete. cp 18:44 Co-signature as Attending Physician, Rui Alvarez MD. rn Disposition: 01/12/21 16:58 Transfer ordered to [facility]. Diagnosis is Displaced comminuted fracture of shaft of right femur. - Reason for transfer: Higher level of care. - Accepting physician is DR Moreno. - Condition is Stable. - Problem is new. - Symptoms have improved. Signatures: Dispatcher [employer] EDMS Rui Alvarez MD MD rn Smirch, Shelby, RN RN ss Suraj Weaver PA PA cp Baxter, Heather, RN RN Dee Covarrubias Corrections: (The following items were deleted from the chart) 15:18 15:18 Dilaudid (HYDROmorphone) 1 mg IVP once; RASS on ADMIN: Combtv4, Very Agttd3, cp Agttd2, Rstlss1, AlertClm0, Drwsy-1, Lt Sdtn-2, Mod Sdtn-3, Dp Sdtn-4, UnArsble-5 ordered. cp 16:47 16:14 CORONAVIRUS+MR.LAB.BRZ ordered. EDAR EDMS 18:42 16:58 01/12/2021 16:58 Transfer ordered to [facility]. ss Diagnosis is Displaced comminuted fracture of shaft of right femur. Reason for transfer: Higher level of care. Accepting physician is DR Moreno. Condition is Stable. Problem is new. Symptoms have improved. cp
[2021-01-12 22:10] VITALS: TEMP 97.1
[2021-01-12 22:16] VITALS: BP 133/73; O2SAT 96
== END 2021-01-12 18:42 | disposition short-term general hospital (02) ==
LOC: ER 13:18
PROC: 2W3LX1Z Immobilization of Right Lower Extremity using Splint (ICD-10-PCS; principal; 2021-01-12)
DX: S72.351A Displaced comminuted fracture of shaft of right femur, initial encounter for closed fracture (principal); S80.211A Abrasion, right knee, initial encounter; W19.XXXA Unspecified fall, initial encounter; Z87.891 Personal history of nicotine dependence; I25.2 Old myocardial infarction; I50.9 Heart failure, unspecified; Z79.02 Long term (current) use of antithrombotics/antiplatelets; Z20.822 Contact with and (suspected) exposure to COVID-19; D50.9 Iron deficiency anemia, unspecified
CPT/HCPCS: 85025; 80048; 36415; 86900; 86850; 85610; 86901; 85730; 73552; 73590; 96375; 96374; 99285; 29505; U0003; J1170 ×5; J7030; J2405; G0390

== ENCOUNTER 2021-07-08 15:30 | Observation (INO) | payer OTHER ==
[2021-07-08 16:05] LABS: Protime INR 1.01
[2021-07-08 16:06] LABS: Absolute Lymphocytes (CBC) 1.5 K/uL (0.7-4.9); Basophils % 1.2 % (0-1.3); Lymphocytes % 25.3 % (15.3-44.8); MPV 9.4 fL (7.6-11.3)
[2021-07-08] MEDS ORDERED: ONDANSETRON 4 MG/2 ML VIAL ONE ×2 (16:18→16:21)
[2021-07-08] MEDS ORDERED: HYDROMORPHONE HCL 2 MG/ML inj ONE (16:18)
[2021-07-08] MEDS ORDERED: HYDROMORPHONE HCL 1 MG/ML INJ ONE (16:21)
[2021-07-08 16:38] LABS: BUN Blood Urea Nitrogen 24 mg/dL (7-18); Bicarbonate 25 mmol/L (21-32); Glucose Level 97 mg/dL (74-106); Magnesium 2.2 mg/dL (1.8-2.4); NT PRO-BNP 85 pg/mL (<125); Potassium 4.2 mmol/L (3.5-5.1); Sodium Level 139 mmol/L (136-145); Troponin (Emerg Dept Use Only) < 0.02 ng/mL (0.0-0.045)
--- NOTE | 2021-07-08 16:46 | ER ---
Nurse's Notes [facility] Name: Sergey Emanuel Jr Age: 61 yrs Sex: Male : 1960 Arrival Date: 07/08/2021 Time: 15:32 Bed 13 Private MD: Diagnosis: Chest pain, unspecified;Angina pectoris, unspecified Presentation: 07/08 15:40 Chief complaint: Left sided chest pain that radiates to left arm since noon today. Hx hb of [place] x 4 and triple bypass in the last year. Coronavirus screen: At this time, the client does not indicate any symptoms associated with coronavirus-19. Ebola Screen: No symptoms or risks identified at this time. Risk Assessment: Do you want to hurt yourself or someone else? Patient reports no desire to harm self or others. Onset of symptoms was July 08, 2021. 15:40 Method Of Arrival: Ambulatory hb 15:40 Acuity: MARYA 2 hb 16:10 Initial Sepsis Screen: Does the patient meet any 2 criteria? No. Patient's initial 1 sepsis screen is negative. Does the patient have a suspected source of infection? Yes: No. Patient's initial sepsis screen is negative. Historical: - Allergies: 15:41 Brilinta; hb - PMHx: 15:41 CHF; Myocardial infarction; x 4; IRON DEFICIENCY ANEMIA; hb - PSHx: 15:41 Triple Bypass; hb - Immunization history:: Adult Immunizations up to date. - Social history:: Smoking status: Patient denies any tobacco usage or history of. - Family history:: not pertinent. - Hospitalizations: : No recent hospitalization is reported. Screenin:09 Abuse screen: Denies threats or abuse. Nutritional screening: No deficits noted. On kh1 Difficulty chewing/swallowing? No. Tuberculosis screening: No symptoms or risk factors identified. Never had TB. Possible symptoms: None Risk factors: None. Fall Risk None identified. IV access (20 points). Ambulatory Aid- None/Bed Rest/Nurse Assist (0 pts). Gait- Normal/Bed Rest/Wheelchair (0 pts). Assessment: 16:08 General: Appears in no apparent distress. uncomfortable, Behavior is calm, cooperative, kh1 appropriate for age. Pain: Complains of pain in chest Pain radiates to left arm Pain began 1 hour ago. Cardiovascular: Reports chest pain, lightheadedness, shortness of breath, Capillary refill < 3 seconds Pulses are all present. Edema is absent. Rhythm is sinus rhythm. 17:42 Reassessment: Patient appears in no apparent distress at this time. No changes from [facility] previously documented assessment. Patient and/or family updated on plan of care and expected duration. Pain level reassessed. Patient is alert, oriented x 3, equal unlabored respirations, skin warm/dry/pink. Vital Signs: 15:40 BP 168 / 102; Pulse 71; Resp 20; Temp 98.3; Pulse Ox 96% on R/A; Weight 102.06 kg; hb Height 5 ft. 9 in. (175.26 cm); Pain 8/10; 16:09 BP 168 / 102; Pulse 71; Resp 20; Temp 98.3; Pulse Ox 96% on R/A; kh1 18:03 BP 132 / 90; Pulse 61; Resp 18; Pulse Ox 97% on R/A; kh1 20:10 BP 113 / 80; Pulse 61; Resp 15; Temp 98.6; Pulse Ox 95% 2 lpm ; Pain 6/10; bs2 15:40 Body Mass Index 33.23 (102.06 kg, 175.26 cm) hb ED Course: 15:32 Patient arrived in ED. ds1 15:37 Rui Alvarez MD is Attending Physician. rn 15:41 Triage completed. hb 15:41 Arm band placed on. hb 15:51 Susy Espino is Primary Nurse. kh1 16:07 XRAY Chest (1 view) Sent. kh1 16:07 Basic Metabolic Panel Sent. kh1 16:07 Troponin (emerg Dept Use Only) Sent. kh1 16:07 PT-INR Sent. kh1 16:07 NT PRO-BNP Sent. kh1 16:08 Magnesium Sent. kh1 16:10 Patient has correct armband on for positive identification. Call light in reach. Side 1 rails up X 1. Adult w/ patient. lacquer sprayer on. Pulse ox on. NIBP on. 16:42 XRAY Chest (1 view) In Process Unspecified. EDMS 16:45 Louie Trivedi MD is Hospitalizing Provider. rn 19:58 Primary Nurse role handed off by Susy Espino tt3 20:10 Chantel Cobian, RN is Primary Nurse. bs2 20:11 No provider procedures requiring assistance completed. Patient admitted, IV remains in bs2 place. Oxygen administration via nasal cannula \T\ 2L/min. Administered Medications: 16:07 Drug: Dilaudid (HYDROmorphone) 1 mg Route: IVP; Site: left antecubital; [facility] 17:02 Follow up: Response: Pain is decreased ch5 16:07 Drug: Zofran (Ondansetron) 4 mg Route: IVP; Site: left antecubital; [facility] 17:02 Follow up: Response: No adverse reaction ch5 Outcome: 16:46 Decision to Hospitalize by Provider. rn 20:11 Admitted to Med/surg accompanied by tech, via stretcher, with oxygen, with chart. bs2 20:11 Condition: improved 20:11 Instructed on the need for admit. 20:17 Admitted to Med/surg room 204, Report called to Chery PLUMMER bs2 20:29 Patient left the ED. bs2 Signatures: Dispatcher [employer] EDPR Karime Neal 1 Rui Alvarez MD MD rn Baxter, Heather, RN Alexandro Curtis 3 Chantel Cobian RN RN 2 Susy Espino [facility] Dhruv Gerard, RN RN ch5 Corrections: (The following items were deleted from the chart) 16:21 16:07 CORONAVIRUS+ drawn and sent. [address]
--- NOTE | 2021-07-08 16:47 | EDPHYS ---
Physician Documentation [facility] Name: Sergey Emanuel Jr Age: 61 yrs Sex: Male : 1960 Arrival Date: 07/08/2021 Time: 15:32 Bed 13 Private MD: ED Physician Rui Alvarez HPI: 07/08 15:47 This 61 yrs old Male presents to ER via Ambulatory with complaints of Chest rn Pain. 15:47 The patient or guardian reports chest pain that is located primarily in the substernal rn area. Onset: this morning. The pain radiates to the left arm. Associated signs and symptoms: Pertinent positives: nausea, Pertinent negatives: abdominal pain, cough, diaphoresis, dizziness, lightheadedness, near syncope, palpitations, shortness of breath, syncope, vomiting. The chest pain is described as a heaviness. Duration: The patient or guardian reports multiple episodes, that are intermittent. Modifying factors: The symptoms are alleviated by nothing. the symptoms are aggravated by nothing. Severity of pain: At its worst the pain was moderate in the emergency department the pain is unchanged. The patient has experienced similar episodes in the past. The patient has not recently seen a physician. Patient reports substernal chest pain that began this morning, thought it was going to get better but did not, got worse, intermittent initially and now constant. Identical to previous heart attack pains. Reports radiates to left arm and associated with nausea. Reports has known blockages that have not been able to been stented in the past due to orthopedic injury. Denies recent illness. No fever.. Historical: - Allergies: 15:41 Brilinta; hb - PMHx: 15:41 CHF; Myocardial infarction; x 4; IRON DEFICIENCY ANEMIA; hb - PSHx: 15:41 Triple Bypass; hb - Immunization history:: Adult Immunizations up to date. - Social history:: Smoking status: Patient denies any tobacco usage or history of. - Family history:: not pertinent. - Hospitalizations: : No recent hospitalization is reported. ROS: 15:47 Constitutional: Negative for fever, chills, and weight loss, Eyes: Negative for injury, rn pain, redness, and discharge, Neck: Negative for injury, pain, and swelling, Cardiovascular: Negative for palpitations, and edema, Respiratory: Negative for shortness of breath, cough, wheezing, and pleuritic chest pain, Abdomen/GI: Negative for abdominal pain, nausea, vomiting, diarrhea, and constipation, Back: Negative for injury and pain, : Negative for injury, bleeding, discharge, and swelling, MS/Extremity: Negative for injury and deformity, Skin: Negative for injury, rash, and discoloration, Neuro: Negative for headache, weakness, numbness, tingling, and seizure. 15:47 All other systems are negative. Exam: 15:47 Constitutional: This is a well developed, well nourished patient who is awake, alert, rn appears uncomfortable Head/Face: Normocephalic, atraumatic. Eyes: Periorbital areas with no swelling, redness, or edema. Cardiovascular: Regular rate and rhythm. No pulse deficits. Respiratory: Mild tachypnea Abdomen/GI: Soft, non-tender Skin: Warm, dry MS/ Extremity: Pulses equal, no cyanosis. Neuro: Awake and alert, GCS 15 15:51 ECG was reviewed by the Attending Physician. rn Vital Signs: 15:40 BP 168 / 102; Pulse 71; Resp 20; Temp 98.3; Pulse Ox 96% on R/A; Weight 102.06 kg; hb Height 5 ft. 9 in. (175.26 cm); Pain 8/10; 16:09 BP 168 / 102; Pulse 71; Resp 20; Temp 98.3; Pulse Ox 96% on R/A; kh1 18:03 BP 132 / 90; Pulse 61; Resp 18; Pulse Ox 97% on R/A; kh1 20:10 BP 113 / 80; Pulse 61; Resp 15; Temp 98.6; Pulse Ox 95% 2 lpm ; Pain 6/10; bs2 15:40 Body Mass Index 33.23 (102.06 kg, 175.26 cm) hb MDM: 15:37 Patient medically screened. rn 16:43 Differential diagnosis: acute myocardial infarction, acute pericarditis, anxiety, rn coronary artery disease chest wall pain, costochondritis, esophagitis, gastritis, gastroesophageal reflux disease (GERD), pericarditis, pleurisy, pneumonia, pneumothorax, stable angina, unstable angina. HEART Score: History: Moderately Suspicious (1), ECG: Normal (0), Age: > 45 and < 65 years (1), Risk Factors: > or = 3 Risk factors for atherosclerotic disease (2), [Hypercholesterolemia] [Hypertension] [+ Family HX] [Obesity] Troponin: < or = 1 x Normal Limit (0), Total Score = 5. The patient was not given aspirin in the Emergency Department. Patient reports taking aspirin within the past 24 hours. SYLVAIN Risk Score: 1 - Three or more CAD risk factors, 1- Known CAD, 1 - ASA use in past 7 days, 1 - Recent [<24hrs] Severe Angina, TOTAL SCORE = 4. Data reviewed: vital signs, nurses notes, lab test result(s), EKG, radiologic studies, plain films, and as a result, I will admit patient. Data interpreted: court recording monitor: rate is 71 beats/min, rhythm is normal sinus rhythm, regular, with no ectopy, Interpretation: normal rate, normal rhythm, Pulse oximetry: on room air is 96 %. Interpretation: acceptable. Test interpretation: by ED physician or midlevel provider: ECG, plain radiologic studies, Chest x-ray negative for acute pneumothorax or pneumonia. Counseling: I had a detailed discussion with the patient and/or guardian regarding: the historical points, exam findings, and any diagnostic results supporting the discharge/admit diagnosis, lab results, radiology results, the need for further work-up and treatment in the hospital. Response to treatment: the patient's symptoms have markedly improved after treatment, and as a result, I will admit patient. Admission orders: after a detailed discussion of the patient's condition and case, the admit orders are written by me. 07/08 15:47 Order name: Basic Metabolic Panel; Complete Time: 16:40 rn 07/08 15:47 Order name: CBC with Diff; Complete Time: 16:24 rn 07/08 15:47 Order name: Magnesium; Complete Time: 16:40 rn 07/08 15:47 Order name: NT PRO-BNP; Complete Time: 16:40 rn 07/08 15:47 Order name: PT-INR; Complete Time: 16:24 rn 07/08 15:47 Order name: Troponin (emerg Dept Use Only); Complete Time: 16:40 rn 07/08 15:47 Order name: XRAY Chest (1 view); Complete Time: 17:12 rn 07/08 17:14 Order name: SARS-COV-2 RT PCR; Complete Time: 17:32 EDMS 07/08 19:13 Order name: NT PRO-BNP EDNC 07/08 19:13 Order name: Troponin I EDNC 07/08 19:13 Order name: Troponin I EDNC 07/08 19:13 Order name: Troponin I EDNC 07/08 15:47 Order name: EKG; Complete Time: 15:47 rn 07/08 15:47 Order name: Cardiac monitoring; Complete Time: 16: rn 07/08 15:47 Order name: EKG - Nurse/Tech; Complete Time: 16: rn 07/08 15:47 Order name: IV Saline Lock; Complete Time: 16: rn 07/08 15:47 Order name: Labs collected and sent; Complete Time: 16: rn 07/08 15:47 Order name: O2 Per Protocol; Complete Time: 16: rn 07/08 15:47 Order name: O2 Sat Monitoring; Complete Time: 16: rn 07/08 18:51 Order name: CONS Physician Consult EDNC 07/08 19:13 Order name: Heart Healthy EDNC 07/08 19:13 Order name: EKG Electrocardiogram EDNC 07/08 19:13 Order name: EKG Electrocardiogram EDNC EC:51 Rate is 71 beats/min. Rhythm is regular. QRS [place] is Normal. SD interval is prolonged rn at 214 msec. QRS interval is normal. QT interval is normal. No Q waves. T waves are Normal. No ST changes noted. Clinical impression: NSR w/ Non-specific ST/T Changes and 1st degree heart block. Interpreted by me. Reviewed by me. Administered Medications: 16:07 Drug: Dilaudid (HYDROmorphone) 1 mg Route: IVP; Site: left antecubital; [facility] 17:02 Follow up: Response: Pain is decreased ch5 16:07 Drug: Zofran (Ondansetron) 4 mg Route: IVP; Site: left antecubital; [facility] 17:02 Follow up: Response: No adverse reaction ch5 Disposition Summary: 07/08/21 16:46 Hospitalization Ordered Hospitalization Status: Observation rn Provider: Louie Trivedi rn Location: Telemetry/MedSurg (observation) rn Condition: Stable rn Problem: new rn Symptoms: have improved rn Bed/Room Type: Standard rn Room Assignment: 204(07/08/21 19:56) tl1 Diagnosis - Chest pain, unspecified rn - Angina pectoris, unspecified rn Forms: - Medication Reconciliation Form rn - SBAR form rn Signatures: Dispatcher [employer] EDNC Rui Alvarez MD MD rn Lasagna, Tonya RN RN tl1 Alexandria Morejon RN RN hb Harris, Kecia [facility] Dhruv Gerard RN ch5 Corrections: (The following items were deleted from the chart) 16:21 15:47 CORONAVIRUS+MR.LAB.BRZ ordered. EDNC EDMS 19:56 16:46 rn tl1
--- NOTE | 2021-07-08 16:57 | RAD REPORT ---
EXAM DESCRIPTION: RAD - Chest Single View - 07/08/2021 4:43 pm CLINICAL HISTORY: CHEST PAIN COMPARISON: No comparisonsChest Pa And Lat (2 Views) dated 09/21/2020; Chest Single View dated 2019; Chest Pa And Lat (2 Views) dated 05/25/2020; Chest Single View dated 09/21/2019 FINDINGS: Lines: None. Lungs: Mild scattered bilateral airspace opacities. Pleural: No significant pleural effusions or pneumothorax. Cardiac: Mild cardiomegaly. Bones: No acute fractures. Other: Sternotomy. IMPRESSION: Vague bilateral opacities could reflect mild multifocal pneumonia, including Covid-19.
[2021-07-08] MEDS ORDERED: ONDANSETRON 4 MG/2 ML VIAL IV PRN (19:12)
[2021-07-08] MEDS ORDERED: NITROGLYCERIN 0.4 MG/TAB SL PRN (19:12)
[2021-07-08] MEDS ORDERED: ACETAMINOPHEN 500 MG TAB PO PRN (19:12)
[2021-07-08] MEDS ORDERED: GABAPENTIN 300 MG CAP PO PRN (19:34)
[2021-07-08] MEDS ORDERED: BACLOFEN 10 MG TAB PO PRN (19:35)
--- NOTE | 2021-07-08 19:40 | P.HP ---
Certification for Inpatient Patient admitted to: Observation With expected LOS: <2 Midnights Patient will require the following post-hospital care: None Practitioner: I am a practitioner with admitting privileges, knowledge of patient current condition, hospital course, and medical plan of care. Services: Services provided to patient in accordance with Admission requirements found in Title 42 Section 412.3 of the Code of Federal Regulations Patient History Date of Service: 07/08/21 Primary Care Provider: Emerald Reason for admission: chest pain History of Present Illness: Mr. Emanuel is a 61 yo M with CHF, CAD (MIx4 over 3 month period 1 year ago, CABG, multiple stents), HTN and HLD who presents with 9/10 constant sternal chest pressure radiating down the left arm beginning at noon today. Pain began while he was sitting down. He reports diaphoresis, lightheadedness, flaoters in his vision and ringing in his ears. He says for the past few days he has felt at baseline besides numbness in his feet. He says the pain feels the same as with previous heart attacks. He last saw his cook mess 2 months ago and had a nuc lear stress test at that time with no alarming findings as well as normal readings with Holter monitor. Initial troponin negative. EKG with nonspecific findings. Patient is chest pain free at this time. Admitted for observation. Allergies No Known Allergies Allergy (Unverified 05/25/20 12:02) Home Medications: Amlodipine [Norvasc*] 10 mg PO DAILY 05/28/20 Atorvastatin Calcium [Lipitor] 40 mg PO DAILY 05/28/20 Baclofen 20 mg PO TID 05/28/20 Gabapentin 1,200 mg PO BID 05/28/20 Meloxicam 15 mg PO DAILY 05/28/20 Metoprolol Tartrate [Lopressor*] 25 mg PO BID 05/28/20 Pantoprazole [Protonix Tab*] 40 mg PO DAILY 05/28/20 Clopidogrel Bisulfate [Plavix] 75 mg PO DAILY 30 Days #30 tablet 05/29/20 - Past Medical/Surgical History Diabetic: No -: CAD -: Hypertension -: Hyperlipidemia -: Neuropathy -: Back Fusion 2009 -: Right Knee Surgery (October 12, 2019) -: CABG, multiple stents -: femur repair - Family History Father -: Cancer Notes: - kidney, lungs Mother -: Cancer Notes: - breast - Social History Smoking Status: Never smoker Alcohol use: No CD- Drugs: No Caffeine use: Yes Place of Residence: Home Review of Systems Eyes: Vision Change Cardiovascular: Chest Pain, Light Headedness Physical Examination - Physical Exam General: Alert, In no apparent distress HEENT: Atraumatic, PERRLA, Mucous membr. moist/pink, EOMI, Sclerae nonicteric Neck: Supple, 2+ carotid pulse no bruit, No LAD, Without JVD or thyroid ab normality Respiratory: Clear to auscultation bilaterally, Normal air movement Cardiovascular: Regular rate/rhythm, Normal S1 S2 Gastrointestinal: Normal bowel sounds, No tenderness Musculoskeletal: No tenderness Integumentary: No rashes Neurological: Normal speech, Normal strength at 5/5 x4 extr, Normal tone, Normal affect Lymphatics: No axilla or inguinal lymphadenopathy - Studies Laboratory Data (last 24 hrs) 07/08/21 15:52: PT 11.6, INR 1.01 07/08/21 15:52: WBC 6.10, Hgb 15.0, Hct 44.0, Plt Count 217 07/08/21 15:52: Sodium 139, Potassium 4.2, BUN 24 H, Creatinine 1.04, Glucose 97, Magnesium 2.2 Assessment and Plan - Problems (Diagnosis) (1) CAD (coronary artery disease) Current Visit: Yes Status: Chronic Qualifiers: Coronary Disease-Associated Artery/Lesion type: bypass graft [place] vs. transplanted heart: [place] heart Associated angina: with unspecified form of angina Qualified Code(s): I25.709 - Atherosclerosis of coronary artery bypass graft(s), unspecified, with unspecified angina pectoris (2) HTN (hypertension) Current Visit: Yes Status: Chronic Qualifiers: Hypertension type: primary hypertension Qualified Code(s): I10 - Essential (primary) hypertension (3) HLD (hyperlipidemia) Current Visit: Yes Status: Chronic Qualifiers: Hyperlipidemia type: unspecified Qualified Code(s): E78.5 - Hyperlipidemia, unspecified (4) Chest pain Current Visit: No Status: Acute Qualifiers: Chest pain type: unspecified Qualified Code(s): R07.9 - Chest pain, unspecified - Plan on tele, cardiology consulted trend troponins, repeat EKG reconcile and continue home medications morphine and NTG PRN BP stable, continue to monitor DVT ppx Discharge Plan: Home Plan to discharge in: 24 Hours - Advance Directives Does patient have a Living Will: No Does patient have a Durable POA for Healthcare: No - Code Status/Comfort Care Code Status Assessed: Yes (full code ) Critical Care: No Time Spent Managing Pts Care (In Minutes): 70
[2021-07-08] MEDS: MORPHINE 2 MG/ML SYR IV PRN (20:28)
[2021-07-08] MEDS ORDERED: MORPHINE 2 MG/ML SYR ONE (20:49)
[2021-07-08 20:51] VITALS: BMI 33.3
[2021-07-08] MEDS ORDERED: TAMSULOSIN 0.4 MG SR CAP PO SCH (21:00)
[2021-07-08] MEDS ORDERED: GABAPENTIN 300 MG CAP PO SCH (21:00)
[2021-07-08] MEDS ORDERED: BACLOFEN 10 MG TAB PO SCH (21:00)
[2021-07-08] MEDS ORDERED: ATORVASTATIN 40 MG TAB PO SCH (21:00)
[2021-07-08] MEDS: carvediloL 12.5 MG TAB PO SCH (21:11)
[2021-07-08] MEDS: AMITRIPTYLINE 25 MG TAB PO SCH (21:28)
[2021-07-08] MEDS: GABAPENTIN 300 MG CAP PO SCH (21:28)
[2021-07-08 22:44] LABS: NT PRO-BNP 72 pg/mL (<125); Troponin I < 0.02 ng/mL (0.0-0.045)
[2021-07-09] MEDS: MORPHINE 2 MG/ML SYR IV PRN ×3 (00:11→08:50)
[2021-07-09] MEDS: carvediloL 12.5 MG TAB PO SCH (05:43)
[2021-07-09] MEDS ORDERED: METOPROLOL TAR 25 MG TAB PO SCH (06:00)
[2021-07-09 06:25] LABS: Absolute Lymphocytes (CBC) 1.4 K/uL (0.7-4.9); Basophils % 1.2 % (0-1.3); Hematocrit 40.3 % (39.6-49.0); Lymphocytes % 24.6 % (15.3-44.8); MPV 9.5 fL (7.6-11.3); RBC Red Blood Cell Count 4.18 M/uL (4.33-5.43)
[2021-07-09] MEDS ORDERED: PANTOPRAZOLE 40MG TABLET PO SCH (06:30)
[2021-07-09 06:48] LABS: Albumin 3.8 g/dL (3.4-5.0); Bilirubin Total 0.3 mg/dL (0.2-1.0); Magnesium 2.1 mg/dL (1.8-2.4); Phosphorus 4.8 mg/dL (2.5-4.9); Potassium 4.4 mmol/L (3.5-5.1); Protein, Total 7.2 g/dL (6.4-8.2)
[2021-07-09 06:57] LABS: Thyroid Stimulating Hormone 6.76 uIU/mL (0.360-3.740)
[2021-07-09] MEDS: GABAPENTIN 300 MG CAP PO SCH ×2 (08:47→13:13)
[2021-07-09] MEDS: AMITRIPTYLINE 25 MG TAB PO SCH (08:49)
[2021-07-09] MEDS ORDERED: ENOXAPARIN 40 MG/0.4 ML SQ SCH (09:00)
[2021-07-09] MEDS ORDERED: ASPIRIN EC 81 MG TAB PO SCH (09:00)
[2021-07-09] MEDS ORDERED: CLOPIDOGREL 75 MG TABLET PO SCH (09:00)
[2021-07-09] MEDS ORDERED: AMITRIPTYLINE 25 MG TAB PO SCH (09:00)
[2021-07-09] MEDS ORDERED: FUROSEMIDE 20 MG TABLET PO SCH (09:00)
--- NOTE | 2021-07-09 12:23 | P.DS ---
Admission Date: 07/08/21 Discharge Date: 07/09/21 Primary Care Provider: Emerald Disposition: ROUTINE DISCHARGE Discharge Condition: FAIR Reason for Admission: chest pain Consultations: Cardiology-Dr. eHwitt. - Problems (1) Chest pain Current Visit: No Status: Acute Qualifiers: Chest pain type: unspecified Qualified Code(s): R07.9 - Chest pain, unspecified (2) CAD (coronary artery disease) Current Visit: Yes Status: Chronic Qualifiers: Coronary Disease-Associated Artery/Lesion type: bypass graft [place] vs. transplanted heart: [place] heart Associated angina: with unspecified form of angina Qualified Code(s): I25.709 - Atherosclerosis of coronary artery bypass graft(s), unspecified, with unspecified angina pectoris (3) HLD (hyperlipidemia) Current Visit: Yes Status: Chronic Qualifiers: Hyperlipidemia type: unspecified Qualified Code(s): E78.5 - Hyperlipidemia, unspecified (4) HTN (hypertension) Current Visit: Yes Status: Chronic Qualifiers: Hypertension type: primary hypertension Qualified Code(s): I10 - Essential (primary) hypertension (5) Peripheral neuropathy Current Visit: Yes Status: Chronic Brief History of Present Illness: 61 yo M with CHF, CAD (MIx4 over 3 month period 1 year ago, CABG, multiple stents), HTN and HLD presented with 9/10 constant sternal chest pressure radiating down the left arm beginning at noon today. Pain occurred at rest. Associated with diaphoresis, lightheadedness, flaoters in his vision and ringing in his ears. He last saw his environmental protection economist 3 months ago and had a nuclear stress test at that time with no alarming findings as well as normal Holter monitor. Initial troponin negative. EKG with nonspecific findings. Patient was chest pain free in the ED. He was placed under observation for ACS rule out. Hospital Course: Patient placed under observation on the medical floor. Troponin trended negative. Patient was chest pain-free during the hospital stay. He was seen by cardiology Dr. Hewitt recommended no further cardiac intervention and follow up with Dr. Segura as an outpatient for stress test. Patient clinically stable, vitals are stable. He is on aspirin, Plavix and Coreg. Patient is discharged per cardiology recommendation to follow up with Dr. Segura. Vital Signs/Physical Exam: Temp Pulse Resp BP Pulse Ox 97.4 F 62 18 135/67 92 07/09/21 08:00 07/09/21 08:00 07/09/21 08:00 07/09/21 08:48 07/09/21 08:00 General: Alert, In no apparent distress, Oriented x3 HEENT: Mucous membr. moist/pink Neck: JVD not distended Respiratory: Clear to auscultation bilaterally, Normal air movement Cardiovascular: No edema, Regular rate/rhythm, Normal S1 S2 Gastrointestinal: Soft and benign, Non-distended, No tenderness Musculoskeletal: No swelling Integumentary: No rashes, No erythema, No cyanosis Neurological: Normal speech, Normal strength at 5/5 x4 extr Laboratory Data at Discharge: WBC 5.60 K/uL (4.3-10.9) 07/09/21 05:57 Hgb 13.5 g/dL (13.6-17.9) L 07/09/21 05:57 Hct 40.3 % (39.6-49.0) 07/09/21 05:57 Plt Count 198 K/uL (152-406) 07/09/21 05:57 PT 11.6 SECONDS (9.5-12.5) 07/08/21 15:52 INR 1.01 07/08/21 15:52 Sodium 140 mmol/L (136-145) 07/09/21 05:57 Potassium 4.4 mmol/L (3.5-5.1) 07/09/21 05:57 BUN 23 mg/dL (7-18) H 07/09/21 05:57 Creatinine 1.15 mg/dL (0.55-1.3) 07/09/21 05:57 Glucose 112 mg/dL (74-106) H 07/09/21 05:57 Phosphorus 4.8 mg/dL (2.5-4.9) 07/09/21 05:57 Magnesium 2.1 mg/dL (1.8-2.4) 07/09/21 05:57 Total Bilirubin 0.3 mg/dL (0.2-1.0) 07/09/21 05:57 AST 18 U/L (15-37) 07/09/21 05:57 ALT 27 U/L (12-78) 07/09/21 05:57 Alkaline Phosphatase 123 U/L (45-117) H 07/09/21 05:57 Troponin I < 0.02 ng/mL (0.0-0.045) 07/09/21 05:57 Triglycerides 274 mg/dL (<150) H 07/09/21 05:57 Cholesterol 175 mg/dL (<200) 07/09/21 05:57 HDL Cholesterol 37 mg/dL (40-60) L 07/09/21 05:57 Cholesterol/HDL Ratio 4.73 07/09/21 05:57 Home Medications: Atorvastatin Calcium [Lipitor] 40 mg PO BEDTIME 05/28/20 Baclofen 20 mg PO TID 05/28/20 Gabapentin 1,200 mg PO TID 05/28/20 Pantoprazole [Protonix Tab*] 40 mg PO DAILY 05/28/20 Clopidogrel Bisulfate [Plavix*] 75 mg PO DAILY 30 Days #30 tablet 05/29/20 Amitriptyline [Elavil*] 25 mg PO BID 07/08/21 Aspirin [Aspirin EC 81 MG] 81 mg PO DAILY 07/08/21 Carvedilol [Coreg] 12.5 mg PO BID 07/08/21 Furosemide 10 mg PO DAILY 07/08/21 Tamsulosin [Flomax*] 0.4 mg PO BEDTIME 07/08/21 Nitroglycerin [Nitrostat*] 0.4 mg SL UD PRN #20 tab 07/09/21 New Medications: Nitroglycerin [Nitrostat*] 0.4 mg SL UD PRN #20 tab PRN Reason: Pain Scale 2-4 (Mild) Diet: AHA Activity: Ad tarun Followup: Mahamed Segura MD [ACTIVE - CAN ADMIT] - 1 Week (For arrangement for stress test.) John Corbin MD [Primary Care Provider] - 1-2 Weeks
[2021-07-09 13:20] VITALS: BP 123/64; TEMP 98.4
[2021-07-09 13:21] VITALS: O2SAT 93
--- NOTE | 2021-07-09 18:11 | EKG ---
Test Date: 2021-07-08 Test Time: 15:49:56 Soda Column Operator: JESSICA MEASUREMENT RESULTS: Intervals: Rate: 131 [place]: QRSD: 156 QT: 242 QTc: 357 [place]: P: VA: QRS: -29 T: -30 INTERPRETIVE STATEMENTS: Poor data quality, interpretation may be adversely affected Undetermined rhythm Left ventricular hypertrophy with QRS widening and repolarization abnormality Inferior infarct, age undetermined Abnormal ECG Compared to ECG 08/12/2020 16:24:27 Left ventricular hypertrophy now present Early repolarization now present Sinus rhythm no longer present T-wave abnormality no longer present Possible ischemia no longer present Myocardial infarct finding still present Electronically Signed On 07-09-21 18:06:04 CDT by Ernst Hewitt
--- NOTE | 2021-07-09 18:11 | EKG ---
Test Date: 2021-07-08 Test Time: 15:51:45 Monotype Keyboard Operator: JESSICA MEASUREMENT RESULTS: Intervals: Rate: 71 DE: 214 QRSD: 84 QT: 416 QTc: 452 [place]: P: 9 DE: 214 QRS: -15 T: 34 INTERPRETIVE STATEMENTS: Sinus rhythm with 1st degree AV block Otherwise normal ECG Compared to ECG 07/08/2021 15:49:56 First degree AV block now present Left ventricular hypertrophy no longer present Early repolarization no longer present Myocardial infarct finding no longer present Electronically Signed On 07-09-21 18:06:03 CDT by Ernst Hewitt
--- NOTE | 2021-07-10 13:04 | CON ---
Date of Consultation: 07/09/2021 Reason For Consultation: Admitted to Dr. Koo on 07/08/2021 with chest pain. I saw the patient on 07/09/2021. History Of Present Illness: Mr. Emanuel is a 61-year-old male who came in with atypical chest pain, substernal, radiated to the left arm with some nausea. No vomiting. No diaphoresis. No PND, orthop martin, palpitations, or syncope. Denied any fever or chills. He described the pain as heaviness. It would last hours. It is not exertional. By the time we saw him, he has already ruled out for an NM, but he was very hypertensive when he came in, at 168/102. Allergies: INCLUDE BRILINTA. Past Medical History: Includes CAD, congestive heart failure, iron-deficiency anemia, and history of CABG. Review of Systems: Negative. Social History: Negative. Family History: Noncontributory. Physical Examination: General: He was hypertensive when he first came in. His last blood pressure was 132/90. Vital Signs: Stable, afebrile. Heart: Sinus rhythm. HEENT: Negative. Neck: Supple. No bruit. Chest: Clear. Cardiac: Revealed a regular rhythm and rate. No murmurs, gallops, or rubs. Abdomen: Benign. Extremities: Revealed no clubbing, cyanosis, or edema. Diagnostic Data: All within fairly normal limits. Impression And Plan: Atypical chest pain in a patient with history of coronary artery disease and co ngestive heart failure. He takes aspirin, Lipitor, Coreg, Plavix, Lasix, pantoprazole, tamsulosin, g abapentin, and amitriptyline at home and continue with present regimen. I think Mr. Emanuel needs to see us as an outpatient. He is a patient of Dr. Segura. We should consider having him do an outpat ient MPI. His last catheterization was in July of 2020. Dr. Segura left circumflex an d obtuse marginal. He had severe disease in the left main with plaque. He was going to have an IVUS done. He will see Dr. Segura in the near future after discharge. We would like to note that his EK G was normal and his chest x-ray revealed possible multifocal pneumonia. NB/MODL Voice ID: [id number] Report ID: [id number]
--- NOTE | 2021-07-10 16:46 | EKG ---
Test Date: 2021-07-09 Test Time: 11:13:24 Vulcanizing Machine Operator: KOREY MEASUREMENT RESULTS: Intervals: Rate: 58 VT: 238 QRSD: 94 QT: 438 QTc: 429 [place]: P: 39 VT: 238 QRS: 5 T: -16 INTERPRETIVE STATEMENTS: Sinus bradycardia with 1st degree AV block Nonspecific ST abnormality Abnormal ECG Compared to ECG 07/08/2021 15:51:45 ST (T wave) deviation now present Sinus rhythm no longer present Electronically Signed On 07-10-21 16:43:04 CDT by Ernst Hewitt
== END 2021-07-09 13:50 | disposition home or self-care (01) ==
LOC: ER 15:30 → 2ND 18:51
PROVIDERS: ADMIT Internal Medicine; ATTEND Internal Medicine
DX: I25.119 Atherosclerotic heart disease of native coronary artery with unspecified angina pectoris (principal); I25.709 Atherosclerosis of coronary artery bypass graft(s), unspecified, with unspecified angina pectoris; I11.0 Hypertensive heart disease with heart failure; I50.9 Heart failure, unspecified; I25.2 Old myocardial infarction; D50.9 Iron deficiency anemia, unspecified; G62.9 Polyneuropathy, unspecified; E78.5 Hyperlipidemia, unspecified; Z95.5 Presence of coronary angioplasty implant and graft; Z79.02 Long term (current) use of antithrombotics/antiplatelets; Z88.8 Allergy status to other drugs, medicaments and biological substances; Z20.822 Contact with and (suspected) exposure to COVID-19; Z80.51 Family history of malignant neoplasm of kidney; Z80.1 Family history of malignant neoplasm of trachea, bronchus and lung; Z80.3 Family history of malignant neoplasm of breast
CPT/HCPCS: 93005 ×3; 85025 ×2; 80048; 36415; 83735 ×2; 84100; 85610; 80061; 84443; 84484 ×3; 84439; 80053; 83880 ×2; 71045; 94760 ×2; 96375; 96374; 99285; U0003; J1650; J1170; J2270 ×4; J2405; G0378 ×3

== ENCOUNTER 2021-07-22 10:37 | Day surgery (SDC) | payer OTHER ==
[~2021-07-22 10:37] MED LIST: HEPA 1000U/500MLS 2,000 UNIT/1,000 ML BAG IV ONE; LIDOCAINE 1% 20 ML MDV ONE
[2021-07-22] MEDS ORDERED: NA CHLORIDE 0.9% 500 ML ONE (11:45)
[2021-07-22] MEDS ORDERED: HEPARIN 5000 UNIT/ML 1 ML VIAL ONE (12:54)
[2021-07-22] MEDS ORDERED: ATROPINE SULF 1 MG/10 ML SYR IV ONE (12:54)
[2021-07-22] MEDS ORDERED: FENTANYL CITR 100 MCG/2 ML ONE ×2 (12:54→13:36)
[2021-07-22] MEDS ORDERED: MIDAZOLAM HCL 2 MG/2 ML INJ ONE ×2 (12:54→13:07)
[2021-07-22] MEDS ORDERED: VERAPAMIL HCL 10 MG/4 ML VIAL IV ONE (12:55)
[2021-07-22] MEDS ORDERED: CLOPIDOGREL 75 MG TABLET ONE (12:59)
[2021-07-22] MEDS ORDERED: HEPA 1000U/500MLS 1,000 UNIT/500 ML BAG IV ONE (13:27)
[2021-07-22] MEDS ORDERED: HYDRALAZINE HCL 20 MG/ML VIAL ONE (13:53)
[2021-07-22] MEDS ORDERED: NITROGLYCERIN 0.4 MG/TAB SL ONE (14:14)
[2021-07-22 14:56] VITALS: TEMP 98
[2021-07-22 17:46] VITALS: BP 164/70; O2SAT 97
--- NOTE | 2021-07-22 20:33 | OP ---
Date of Procedure: 07/22/2021 Surgeon: UMM HARLEY Procedures Performed: 1.Selective coronary angiogram. 2.Balloon angioplasty of severe OM1 branch ISR using 3.0 x 12 mm NC balloon. Complications: None. Bleeding: Less than 10 mL. Description Of Procedure: After risks, benefits, and alternatives were explained, the patient agreed to procedure and signed informed consent. The patient was brought to the cardiac catheterization la boratory, prepped and draped in usual sterile fashion. Then, I accessed the right femoral artery usi ng a micropuncture kit and fluoroscopy and ultrasound, placed a 6-Ind[place]ian [place] sheath and took a 6 -Indonesian JL4 catheter in the aortic root, engaged the left main, took standard views and then exchange d for a 6-Ind[place] JR4 catheter into the aortic root, engaged the RCA and the PATE, took standard views . Then, we gave systemic heparin to assure ACT level above 250 and gave 300 mg of Plavix and took EB U 3.5 guide into the aortic root over a J-wire and used a side-hole EBU, engaged left main and took a short Run-Through wire into the left circ into the OM, and then I took a GuideLiner for support and then used a 3.0 x 12 mm NC balloon to post dilate the area of ISR bringing down the area of stenosis from 90% to 30%. I then wired the LAD using a Run-Through wire and took an IVUS catheter into the LA D and imaged the proximal portion of the LAD and the left main, and luminal area of the left main was 6.9 and the LAD lumen area was 5.7. I removed all the wires and the guide, and the sheath was remov ed and used StarClose for closure. Good hemostasis. Findings: 1.Left main is moderate size with distal 40% heavily calcified luminal area of 6.9 sq mm by IVUS. 2.LAD; moderate size with luminal irregularities throughout the vessel and mild diffuse disease prox imally about 10% to 20%. 3.Left circumflex; proximal 60% and then to the OM branch comes off. It is a large vessel with a lo ng stent and in the mid to distal portion of the stent, there is 90% ISR, status post balloon angiopl asty as above. 4.RCA; approximately 30% stenosis in mid RCA stent. It is patent with 40% ISR. Conclusion: Severe ISR of OM1 branch, status post balloon angioplasty as above. Plan: Plavix, aspirin, high-dose statin. Follow up with me in the office in 4 weeks. SR/MODL Voice ID: [id number] Report ID: [id number]
== END 2021-07-22 18:00 | disposition home or self-care (01) ==
LOC: CCL 10:37
PROVIDERS: ATTEND Internal Medicine
DX: I25.118 Atherosclerotic heart disease of native coronary artery with other forms of angina pectoris (principal); T82.855A Stenosis of coronary artery stent, initial encounter; I73.9 Peripheral vascular disease, unspecified; I10 Essential (primary) hypertension; I48.91 Unspecified atrial fibrillation; E78.5 Hyperlipidemia, unspecified; F17.210 Nicotine dependence, cigarettes, uncomplicated; Z88.8 Allergy status to other drugs, medicaments and biological substances; Z20.822 Contact with and (suspected) exposure to COVID-19; Z82.49 Family history of ischemic heart disease and other diseases of the circulatory system
CPT/HCPCS: 93005; 85347 ×2; 92920; 92978; 93454; U0003; C1893; C1725; J1644 ×3; J2250 ×2; J3010 ×2; J7040; J0360

== ENCOUNTER 2022-01-03 22:43 | Inpatient (IN) | payer OTHER ==
--- OUTSIDE RECORDS SUMMARY | 2022-01-03 22:53 | XMS REPORT | Continuity of Care Document ---
:1960 Author Organization [facility] t Address [address] [place] [address] Care Team Providers Name Role Phone EMERALD Primary Care Physician Unavailable ALEXSANDRA LUA Attending Clinician Unavailable GLORIA BEAULIEU Attending Clinician Unavailable FRIDA MEDRANO Attending Clinician Unavailable Eladio MILLS Attending Clinician Unavailable SHAYLEE Attending Clinician Unavailable Aaron Attending Clinician Unavailable Brittnee Neumann MD Attending Clinician BAM SERRA Attending Clinician Unavailable ZAIRE العراقي Attending Clinician Unavailable Carmen ARIAS Attending Clinician LIS GOYAL Attending Clinician Unavailable ALEXSANDRA LUA Admitting Clinician Unavailable GLORIA BEAULIEU Admitting Clinician Unavailable KARINA SINCLAIR Admitting Clinician Unavailable Aaron Admitting Clinician Unavailable Emerald Admitting Clinician Unavailable COURTNEY STEARNS Admitting Clinician Unavailable LIS GOYAL Admitting Clinician Unavailable Payers Payer Name Policy Type Policy Number Effective Date Expiration Date [facility] MEDICARE A B [id number] CanatuCAPRON [id number] 2019 [facility] 00:00:00 Fanaticall [id number] 2021 00:00:00 CDC REVIEW [id number] 2020 00:00:00 Problems Condition Condition Condition Status Onset Resolution Last Treating Co mments Source Name Details Category Date Date Treatment Clinician Date No known No known Disease [facility] r active active College problems problems of Medicin e Allergies, Adverse Reactions, Alerts Allergy Allergy Status Severity Reaction(s) Onset Inactive Treating Comm ents Source Name Type Date Date Clinician lilia DA Active U CHRONIC 2020-10 [facility] or COUGH 2-11 Clear 00:00: Sahu [address] [facility] No Known DA Active U 2020-10 [facility] Allergie 2-10 [facility] TIC[facility]RDOMINIC Allergy Active Other [facility] NO KNOWN Allergy Active [facility] ALLERGIE S NO KNOWN Drug Active Univers ALLERGIE Class ity of S [facility] Social History Social Habit Start Date Stop Date Quantity Comments Source Tobacco use and 2020-09-04 2020-09-04 Never used [facility] Co llege of exposure 00:00:00 00:00:00 Medicine Sex Ass[birth year] [facility] llege of 00:00:00 00:00:00 Medicine Smoking Status Start Date Stop Date Source Never smoker [facility] o f Medicine Medications Ordered Filled Start Stop Current Ordering Indication Dosage Frequency Signature Comments Components Source Medication Medication Date Date Medication? Clinician (SIG) Name Name amlodipine 2019-10 Yes 10mg Take 10 mg [facility] (NORVASC) 2- by mouth. Colle ge 10 MG 19:17: of tablet 32 Medicin e atorvastati 2019-10 Yes 40mg Take 40 mg Enrique n (LIPITOR) 2 by mouth. Col lege 40 MG 19:17: of tablet 32 Medicin e gabapentin 2019-10 Yes 1200mg Take 1,200 Enrique (NEURONTIN) 2- mg by Martin 600 MG 19:17: mouth 3 of tablet 32 times Medicin daily. e metoprolol 2019-10 Yes 25mg Take 25 mg [facility] (LOPRESSOR) 2-01 by mouth. Col lege 25 MG 19:17: of tablet 32 Medicin e pantoprazol 2019-10 Yes 40mg Take 40 mg Enrique e 2- by mouth. College (PROTONIX) 19:17: of 40 MG 32 Medicin tablet e amitriptyli 2019-10 Yes 25mg Take 25 mg Enrique ne (ELAVIL) 17 by mouth Saad ege 25 MG 00:00: as needed. of tablet 00 Medicin e amiodarone 2019-10- No 200mg Take 200 [facility] (PACERONE) 1-13 11-14 mg by College 200 MG 00:00: 05:59 mouth of tablet 00 :00 daily. Medicin e lisinopril 2019-10- No 2.5mg Take 2.5 [facility] (PRINIVIL, 1-13 11-14 mg by Martin ZESTRIL) 00:00: 05:59 mouth of 2.5 MG 00 :00 daily. Medicin tablet e Ticagrelor 2019-10 Yes 90mg Take 90 mg [facility] 90 MG TABS 1-12 by mouth Colle ge 00:00: two times of 00 daily. Medicin e carvedilol 2019-10- No 12.5mg Take 12.5 Enrique (COREG) 1-12 11-13 mg by Martin 12.5 MG 00:00: 05:59 mouth two of tablet 00 :00 times Medicin daily. e Tamsulosin 2019-10 Yes .4mg Take 0.4 [place] [facility] [facility] HCl 0.4 MG 0-15 mg by Martin CAPS 00:00: mouth of 00 daily. Medicin e Aspirin 81 2019-10- No 81mg Take 81 mg Enrique MG tablet 0-15 10-16 by mouth Colle ge 00:00: 04:59 daily. of 00 :00 Medicin e baclofen 2019-10 Yes 20mg Take 20 mg [place] [facility] [facility] (LIORESAL) 0-14 by mouth Colle ge 20 MG 00:00: daily. of tablet 00 Medicin e ferrous 2019-10- No 325mg Take 325 [facility] or sulfate 325 0-14 10-15 mg by Colleg e (65 Fe) MG 00:00: 04:59 mouth of tablet 00 :00 daily. Medicin e folic acid 2019-10- No 1mg Take 1 mg [facility] (FOLVITE) 1 0-14 10-15 by mouth Col lege MG tablet 00:00: 04:59 daily. of 00 :00 Medicin e furosemide 2019-10- No 40mg Take 40 mg Enrique (LASIX) 40 0-14 10-15 by mouth Saad ege MG tablet 00:00: 04:59 two times of 00 :00 daily. Medicin e tizanidine 2020-1 Yes 4mg Take 4 mg [facility] (ZANAFLEX) 0-03 by mouth Colle ge 4 MG tablet 00:00: at of 00 bedtime. Medicin e amlodipine 2020-0 Yes 10mg Take 10 mg [facility] (NORVASC) 3-02 by mouth. Colle ge 10 MG 18:43: of tablet 44 Medicin e atorvastati 2020-0 Yes 40mg Take 40 mg [facility] n (LIPITOR) 3-02 by mouth. Col lege 40 MG 18:43: of tablet 44 Medicin e gabapentin 2020-0 Yes 600mg Take 600 [facility] (NEURONTIN) 3-02 mg by Martin 600 MG 18:43: mouth. of tablet 44 Medicin e metoprolol 2020-0 Yes 25mg Take 25 mg [facility] (LOPRESSOR) 3-02 by mouth. Col lege 25 MG 18:43: of tablet 44 Medicin e pantoprazol 2020-0 Yes 40mg Take 40 mg Enrique e 3-02 by mouth. College (PROTONIX) 18:43: of 40 MG 44 Medicin tablet e tramadol 2020-0 Yes Take 1 [facility] (ULTRAM) 50 2-24 tablets by Co llege MG tablet 00:00: mouth of 00 every 4-6 Medicin hours as e needed tramadol 2020-0 2020- No Take 1 Enrique (ULTRAM) 50 2-24 12-01 tablets by C ollege MG tablet 00:00: 00:00 mouth of 00 :00 every 4-6 Medicin hours as e needed amlodipine 2020-0 Yes 10mg Take 10 mg [facility] (NORVASC) 1-23 by mouth. Colle ge 10 MG 16:57: of tablet 11 Medicin e atorvastati 2020-0 Yes 40mg Take 40 mg [facility] n (LIPITOR) 1-23 by mouth. Col lege 40 MG 16:57: of tablet 11 Medicin e gabapentin 2020-0 Yes 600mg Take 600 [facility] (NEURONTIN) 1-23 mg by Martin 600 MG 16:57: mouth. of tablet 11 Medicin e metoprolol 2020-0 Yes 25mg Take 25 mg [facility] (LOPRESSOR) 1-23 by mouth. Col lege 25 MG 16:57: of tablet 11 Medicin e pantoprazol 2020-0 Yes 40mg Take 40 mg [facility] e 1-23 by mouth. Martin (PROTONIX) 16:57: of 40 MG 11 Medicin tablet e hydrocodone Yes 1{tbl} Take 1 Tab [facility] -acetaminop 1-17 by mouth Saad osmare hen (NORCO) 00:00: every 8 of 10-325 MG 00 hours as Medici n per tablet needed for e Pain. aspirin 2019- No 325mg Take 325 [facility] or (GOODSENSE 1-10 02-10 mg by Martin ASPIRIN) 00:00: 05:59 mouth. of 325 mg 00 :00 Medicin tablet e meloxicam 2019- No 15mg Take 15 mg [facility] (MOBIC) 15 10-13 02-09 by mouth. Col lege MG tablet 00:00: 05:59 of 00 :00 Medicin e No known No [facility] medications [facility] Medicin e Vital Signs Vital Name Observation Time Observation Value Comments Source HEIGHT 2021-01-16 12:00:00 172.7 cm WEIGHT 2021-01-16 12:00:00 102.059 kg HEIGHT 2021-01-12 22:15:00 172.7 cm WEIGHT 2021-01-12 22:15:00 102.06 kg WEIGHT 2020-08-15 06:00:00 96.4 kg WEIGHT 2020-08-14 06:00:00 96.4 kg HEIGHT 2020-08-13 04:00:00 175.3 cm WEIGHT 2020-08-13 04:00:00 96.5 kg WEIGHT 2020-08-12 20:06:00 99.791 kg WEIGHT 2020-07-16 06:45:00 106.9 kg WEIGHT 2020-07-14 07:30:00 108.3 kg WEIGHT 2020-07-08 05:57:00 107.457 kg HEIGHT 2020-07-02 21:00:00 175.3 cm HEIGHT 2020-07-02 00:00:00 175.3 cm WEIGHT 2020-07-02 00:00:00 107.457 kg HEIGHT 2021-01-16 12:00:00 172.7 cm WEIGHT 2021-01-16 12:00:00 102.059 kg HEIGHT 2021-01-12 22:15:00 172.7 cm WEIGHT 2021-01-12 22:15:00 102.06 kg Systolic blood 2020-09-04 19:22:00 148 mm[Hg] [facility] pressure Medicine Diastolic blood 2020-09-04 19:22:00 89 mm[Hg] [facility] Medicine Heart rate 2020-09-04 19:22:00 77 /min [facility] C ollege of Medicine Respiratory rate 2020-09-04 19:22:00 16 /min [facility] Body height 2020-09-04 19:22:00 175.3 cm [facility] C ollege of Medicine Body weight 2020-09-04 19:22:00 100.699 kg [facility] C ollege of Medicine BMI 2020-09-04 19:22:00 32.78 kg/m2 [facility] ollege of Medicine Oxygen saturation in 2020-09-04 19:22:00 97 /min [facility] of Arterial blood by Medicine Pulse oximetry Systolic blood 2020-09-04 19:22:00 148 mm[Hg] [facility] Medicine Diastolic blood 2020-09-04 19:22:00 89 mm[Hg] [facility] Medicine Heart rate 2020-09-04 19:22:00 77 /min [facility] ollege of Medicine Respiratory rate 2020-09-04 19:22:00 16 /min [facility] Body height 2020-09-04 19:22:00 175.3 cm [facility] C ollege of Medicine Body weight 2020-09-04 19:22:00 100.699 kg [facility] ollege of Medicine BMI 2020-09-04 19:22:00 32.78 kg/m2 [facility] ollege of Medicine Oxygen saturation in 2020-09-04 19:22:00 97 /min [facility] of Arterial blood by Medicine Pulse oximetry WEIGHT 2020-08-15 06:00:00 96.4 kg WEIGHT 2020-08-14 06:00:00 96.4 kg HEIGHT 2020-08-13 04:00:00 175.3 cm WEIGHT 2020-08-13 04:00:00 96.5 kg WEIGHT 2020-08-12 20:06:00 99.791 kg HEIGHT 2020-07-31 13:14:00 175.3 cm WEIGHT 2020-07-31 13:14:00 99.791 kg WEIGHT 2020-07-16 06:45:00 106.9 kg WEIGHT 2020-07-14 07:30:00 108.3 kg WEIGHT 2020-07-08 05:57:00 107.457 kg HEIGHT 2020-07-02 21:00:00 175.3 cm HEIGHT 2020-07-02 00:00:00 175.3 cm WEIGHT 2020-07-02 00:00:00 107.457 kg Body height 2019-10-27 16:56:00 175.3 cm [facility] of [facility] Body weight 2019-10-27 16:56:00 97.523 kg [facility] C ollege of Medicine BMI 2019-10-27 16:56:00 31.75 kg/m2 [facility] C ollege of Medicine Body height 2019-10-27 16:56:00 175.3 cm [facility] C ol[facility] of Medicine Body weight 2019-10-27 16:56:00 97.523 kg [facility] of [facility] BMI 2019-10-27 16:56:00 31.75 kg/m2 [facility] C ollege of Medicine BMI 2019-07-04 18:10:00 31.75 kg/m2 [facility] Body height 2019-07-04 18:10:00 175.3 cm [facility] Body weight 2019-07-04 18:10:00 97.523 kg [facility] BMI 2019-07-04 18:10:00 31.75 kg/m2 [facility] C ol[facility] of Medicine Body height 2019-07-04 18:10:00 175.3 cm [facility] C ol[facility] of Medicine Body weight 2019-07-04 18:10:00 97.523 kg [facility] C ollege of Medicine Procedures Procedure Date / Time Performing Clinician Source Performed ELECTROCARDIOGRAM COMPLETE 2020-09-04 19:25:00 Drake Beaulieu [facility] XR KNEE RIGHT AP, LAT, BOTH 2019-07-04 19:06:07 Aline Goyal [facility] Medicine Plan of Care Planned Activity Planned Date Details Comments Source Future Scheduled ORT - XR KNEE RIGHT 4V Ordered: B [facility] Test (CHARGE ONLY) [code = 07/04/2019 of Med [facility] 24735] Future Scheduled COLON CANCER SCREENING: [facility] [employer] Test COLONOSCOPY [code = COLON of Medicine CANCER SCREENING: COLONOSCOPY] Future Scheduled MEDICARE AWV [code = [place] [facility] [employer] Test MEDICARE AWV] of Medicine Future Scheduled TETANUS SHOT (ADULT) [place] [facility] [employer] Test [code = TETANUS SHOT of Medi cine (ADULT)] Future Scheduled HEPATITIS C SCREENING [employer] Test [code = HEPATITIS C of Medic ine SCREENING] Future Scheduled HIV SCREENING [code = HIV [facility] College Test SCREENING] of Medicine Future Scheduled FLU VACCINE > 6 MONTHS [facility] [employer] Test [code = FLU VACCINE > 6 of M edicine MONTHS] Future Scheduled COLON CANCER SCREENING: [facility] Test COLONOSCOPY [code = COLON of Medicine CANCER SCREENING: COLONOSCOPY] Future Scheduled MEDICARE AWV [code = [place] [facility] [employer] Test MEDICARE AWV] of Medicine Future Scheduled TETANUS SHOT (ADULT) [place] [facility] [employer] Test [code = TETANUS SHOT of Medi cine (ADULT)] Future Scheduled BMI FOLLOW UP PLAN [code [facility] College Test = BMI FOLLOW UP PLAN] of Med icine Future Scheduled HEPATITIS C SCREENING [employer] Test [code = HEPATITIS C of Medic ine SCREENING] Future Scheduled HIV SCREENING [code = HIV [facility] Test SCREENING] of Medicine Future Scheduled MEDICARE AWV (Initial) [facility] [employer] Test [code = MEDICARE AWV of Medi cine (Initial)] Future Scheduled FLU VACCINE > 6 MONTHS [employer] [employer] Test [code = FLU VACCINE > 6 of M edicine MONTHS] Future Scheduled ORT - XR KNEE RIGHT 4V Ordered: B [facility] [employer] Test (CHARGE ONLY) [code = 12/05/2019 of Med icine 26576] Future Scheduled COLON CANCER SCREENING: [facility] Test COLONOSCOPY [code = COLON of Medicine CANCER SCREENING: COLONOSCOPY] Future Scheduled TETANUS SHOT (ADULT) [place] [facility] [employer] Test [code = TETANUS SHOT of Medi cine (ADULT)] Future Scheduled BMI FOLLOW UP PLAN [code [facility] [employer] Test = BMI FOLLOW UP PLAN] of Med icine Future Scheduled HEPATITIS C SCREENING [employer] Test [code = HEPATITIS C of Medic ine SCREENING] Future Scheduled HIV SCREENING [code = HIV [facility] Test SCREENING] of Medicine Future Scheduled MEDICARE AWV (Initial) [facility] [employer] Test [code = MEDICARE AWV of Medi cine (Initial)] Future Scheduled FLU VACCINE > 6 MONTHS [employer] Test [code = FLU VACCINE > 6 of M edicine MONTHS] Future Scheduled ELECTROCARDIOGRAM [facility] College Test COMPLETE [code = 22368] of M edicine Future Scheduled COLON CANCER SCREENING: [facility] Test COLONOSCOPY [code = COLON of Medicine CANCER SCREENING: COLONOSCOPY] Future Scheduled TETANUS SHOT (ADULT) [place] [facility] [employer] Test [code = TETANUS SHOT of Medi cine (ADULT)] Future Scheduled BMI FOLLOW UP PLAN [code [facility] Test = BMI FOLLOW UP PLAN] of Med icine Future Scheduled HEPATITIS C SCREENING [employer] Test [code = HEPATITIS C of Medic ine SCREENING] Future Scheduled HIV SCREENING [code = HIV [facility] Test SCREENING] of Medicine Future Scheduled ZOSTER VACCINE (1 of 2) [facility] College Test [code = ZOSTER VACCINE (1 of Medicine of 2)] Future Scheduled MEDICARE AWV (Initial) [employer] Test [code = MEDICARE AWV of Medi cine (Initial)] Future Scheduled FLU VACCINE > 6 MONTHS [employer] Test [code = FLU VACCINE > 6 of M edicine MONTHS] Encounters Start End Encounter Admission Attending Care Care Encounter Source Date/Time Date/Time Type Type Clinicians Facility Department ID 2021-07-13 Inpatient ER [facility] Orthopedics [id number] [facility] 12:54:41 AMANDA 2020-08-12 Inpatient ER [facility] Cardiac ICU [id number] [facility] 19:02:[address] [facility] 2020-07-02 [facility] [id number] SLE 20:54:00 DRAKE 2021-10-31 2021-11-01 Emergency E [facility] [address] 13:44:00 09:24:00 HILLARY [facility] 2021-10-24 2021-10-24 Emergency X [facility] ERT [id number] Univers 15:41:00 15:58:00 BASIM dewitt [facility] 2021-10-20 2021-10-23 Inpatient E SHAYLEE [facility] MED [id number] [facility] 19:39:00 17:30:00 SHIFA 2021-09-13 2021-09-15 [facility] [id number] [facility] 19:53:00 16:28:00 Yumiko [id number] [facility] 2021-09-13 2021-09-15 Inpatient EM [facility] [id number] [facility] 19:53:00 16:28:00 Yumiko 47 [facility] 2021-09-15 2021-09-15 Outpatient NIRAV Walker [id number] [facility] 07:05:00 07:05:00 Yumiko [id number] [facility] 2020-09-04 2020-09-04 Office KARON Beaulieu [id number] [facility] 12:52:12 13:12:12 Visit Drake AMBULATOR 350.1.13.21 College Y 0.2.7.2.686 of [id number] Medi linda 370 e 2020-09-04 2020-09-04 Office KARON Beaulieu [id number] 12:52:12 13:12:12 Visit Drake AMBULATOR 350.1.13.21 Y 0.2.7.2.686 [id number] 2020-07-31 2020-07-31 Outpatient ELIZABETH, [facility] [id number] SLE 00:00:00 00:00:00 NATHAN 2020-07-31 2020-07-31 Outpatient DULCE MARIA, [facility] [id number] [facility] 00:00:00 00:00:00 ALLEGRA 2019-12-05 2019-12-05 Office KARON Goyal [id number] [facility] 12:08:28 12:18:28 Visit Ernst AMBULATOR 350.1.13.21 College Y 0.2.7.2.686 of [id number] [facility] linda 600 e 2019-12-05 2019-12-05 Office KARON Goyal [id number] 12:08:28 12:18:28 Visit Ernst AMBULATOR 350.1.13.21 Y 0.2.7.2.686 [id number] 2019-10-27 2019-10-27 Office KARON Goyal [id number] [facility] 10:26:14 11:26:31 Visit Ernst AMBULATOR 350.1.13.21 College Y 0.2.7.2.686 of [id number] Medi linda 600 e 2019-10-27 2019-10-27 Office KARON Goyal [id number] 10:26:14 11:26:31 Visit Ernst AMBULATOR 350.1.13.21 Y 0.2.7.2.686 [id number] 600 2019-07-04 2019-07-04 Office KARON Goyal [id number] [facility] 12:43:07 14:30:53 Visit Ernst AMBULATOR 350.1.13.21 Martin Y 0.2.7.2.686 of [id number] Medi linda 600 e 2019-07-04 2019-07-04 Office KARON Goyal [id number] 12:43:07 14:30:53 Visit Ernst AMBULATOR 350.1.13.21 Y 0.2.7.2.686 [id number] Results Test Description Test Time Test Comments Results Result [facility] Comments - MRI BRAIN W/O 2021-09-15 CONTRAST 09:49:00 [facility] [place] : 1960 Sex: M FAX: Yumiko Walker MD Camps: PM St: ADM FAX: John Blas MD [phone] Name: [place] AMIN : 1960 Age/S: 61/M [address] [place] Unit #: [id number] Loc: [place] [address] Phys: Yumiko Walker MD Acct: [id number] Dis Date: Status: ADM IN PHONE #: [phone] Exam Date: 09/15/2021 0931 FAX #: Reason: rule out acute stroke EXAMS: CPT: [id number] MRI BRAIN W/O CONTRAST [id number] EXAM: MRI BRAIN WITHOUT CONTRAST INDICATION: Altered mental status COMPARISON: CT dated September 13, 2021 TECHNIQUE: Multiplanar, multisequence MRI of the brain was obtained without administration of intravenous contrast. IV contrast: None FINDINGS: No restricted diffusion is identified to suggest acute ischemia. There is normal signal throughout the brain parenchyma. There is prominence of the sulci consistent with diffuse cerebral volume loss. No midline shift or mass effect. The basal cisterns are patent. The posterior fossa and 4th ventricle are normal. No intracranial hemorrhage. Intracranial flow voids are normal. The paranasal sinuses and mastoid air cells are clear. No calvarial lesions are identified. The orbits and globes are unremarkable. IMPRESSION: No acute intracranial abnormality. No acute infarct. Diffuse cerebral volume loss. LOCATION: A 1 at 0949 Reported and signed by: Karina Lord M.D. CC: Yumiko Walker MD; John Corbin MD Technologist: Franchesca Johns, RT(R)(MR) Transcribed Date/Time/By: 09/15/2021 (0949) :[email or web address] Orig Print D/T: S: 09/15/2021 (2749) PAGE 1 Signed Report TROP-I HIGH SENSITIVITY 2021-09-14 05:01:00 Test Item Value Reference Range Interpretation Comme nts TROP-I HIGH 10.6 0-54 N CAUTION: Units of the current test methodology (ng/L) differfrom the SENSITIVITY ng/L prior test meth odology (ng/mL) by a factor of (test code = 1000. 99th TROPIHS) Percentile Uppe r Reference Limit (URL):Females: 34 ng/LMales: 54 ng/L In order t o distinguish acute elevations of high sensitivitytrop onin from other clinical conditions, the FourthUniversal Definition of Myocardial Infarction stressesclinical assessment and the demonstration of a rise and/orfall in serial troponin result s above the URL. Results from different methodologies should not be c omparedto one another as quantitative results and URLs may varyby meth od. Completed by Nursing: NOTROP-I HIGH [id number] 01:48:00 Test Item Value Reference Range Interpretation Comments TROP-I HIGH 9.2 ng/L 0-54 N CAUTION: Units of the SENSITIVITY (test current te st methodology code = TROPIHS) (ng/L) diffe rfrom the prior test meth odology (ng/mL) by a fa ctor of 1000. 99t h Percentile Uppe r Reference Limit (URL):Fem ales: 34 ng/LMales: 54 ng/L In order to distin guish acute elevations of h igh sensitivitytrop onin from other clinical conditions, the FourthUnive rsal Definition of M yocardial Infarction stressesclinica l assessment and the demonstration o f a rise and/orfall in s erial troponin result s above the URL. Results fr om different metho dologies should not be c omparedto one another as quantitative re sults and URLs may varyby method. Completed by Nursing: NOCOVID 19 Asymptomatic IH [id number] 00:52:00 Test Item Value Reference Range Interpretation Comments COVID 19 Asymptomatic NEGATIVE Negative Per ma nufacturer, IH AG (test code = negative results should COVNONPUIAG) be treated aspresumptive a nd, if inconsistent wi th clinical signs andsymptoms or necessary for p atient management, bradni uld betested with a n alternative mol ecular assay. Negative resultsdo not p reclude SARS-CoV-2 infe ction and should not be usedas the sole basis for patient man agement decisions. Neg ative results should be considered in t he context of apat ient's recent exposure s, history, prese nce of clinicalsigns a nd symptoms consis tent with COVID-19. ARTERIAL BLOOD [id number] 23:29:00 Test Item Value Reference Range Interpretation Comments ARTERIAL BLOOD GAS PH 7.36 pH units 7.35-7.45 N (test code = PHA) ARTERIAL BLOOD GAS PCO2 40 mmHg 35-45 N (test code = PCO2A) ARTERIAL BLOOD GAS PO2 92 mmHg 80-100 N (test code = PO2A) BICARBONATE TOTAL HCO3 22.0 mmol/L 22.0-26.0 N (test code = HCO3) BASE EXCESS (test code = -3.2 mmol/L -3.0-3.0 L MACY) ABG O2 SATURATION (test 97 % 90-100 N code = SATA) FIO2 (test code = FIO2A) 32 % (calc) 21-100 N ABG VENT MODE (test code Nasal Cannula Vent Mode = MODEA) Descript ABG SITE (test code = Right Radial ARTKIT DESCRIPTION SITEA) MODIFIED JENIFFER'S (test Yes Circ.CHK POSITIVE code = MODALL) PaO2/[id number] 23:29:00 Test Item Value Reference Range Interpretation Comments PaO2/FiO2 (test 287.5 mm/Hg See_Comment [Automated message] The code = [id number]) system [facility] generated this result tra nsmitted reference range : 200. The reference r ravi was not used to int erpret this result as normal/abnormal . HEPATIC FUNCTION [id number] 23:14:00 Test Item Value Reference Range Interpretation Comments TOTAL PROTEIN (test code = PROT) 7.3 G/DL 6.4-8.2 N ALBUMIN (test code = ALB) 3.5 G/DL 3.4-5.0 N BILIRUBIN TOTAL (test code = 0.50 MG/DL 0.2-1.2 N BILT) BILIRUBIN DIRECT (test code = < 0.10 MG/DL 0.00-0.30 N BILD) BILIRUBIN INDIRECT (test code = 0.40 MG/DL 0.2-1.2 N BILIND) SGOT/AST (test code = AST) 79 Unit/L 15-37 H SGPT/ALT (test code = ALT) 35 Unit/L 12-78 N ALKALINE PHOSPHATASE TOTAL (test 98 Unit/L 50-136 N code = ALKP) UA RFLX MICR CULT IF [id number] 23:02:00 Test Item Value Reference Range Interpretation Comments UA COLOR (test code = YELLOW discript YEL/STRAW COLU) UA APPEARANCE (test code HAZY discript CLEAR A = APPU) UA GLUCOSE DIPSTICK (test NEGATIVE mg/dL NEG code = DGLUU) UA BILIRUBIN DIPSTICK NEGATIVE mg/dL NEG (test code = BILU) UA KETONE DIPSTICK (test 1+ mg/dL NEG code = KETU) UA SPECIFIC GRAVITY (test 1.015 SG 1.005-1.030 code = SGU) UA BLOOD DIPSTICK (test NEGATIVE mg/DL NEG code = AIME) UA PH DIPSTICK (test code 5.5 pH UNITS 5.0-7.0 = JASON) UA PROTEIN DIPSTICK (test 1+ mg/dL NEG A code = PROU) UA UROBILINIOGEN DIPSTICK 0.2 mg/dL <2.0 (test code = URO) UA NITRITE DIPSTICK (test NEGATIVE SCREEN NEG code = MARCO) UA LEUKOCYTE ESTERASE NEGATIVE Leuk/mcL NEGATIVE DIPSTICK (test code = LEUU) UA CULTURE NEEDED? (test NO, WBC<10 Criteria Culture CHK code = UACULT) UA WBC (test code = WBCU) 0-1 #WBC/HPF 0-3 UA RBC (test code = RBCU) 0-1 #RBC/HPF 0-3 UA BACTERIA (test code = TRACE /HPF NONE-TRACE BACU) UA SQUAMOUS CELLS (test TRACE /HPF NONE code = SQU) UA HYALINE CAST (test 0-2 #/LPF 0-3 code = HYALU) UA FINE GRANULAR CAST 0-5 /LPF NONE SEEN (test code = FINEU) Indication for culture: RiskForSepsis-no oth srcDRUGS OF ABUSE SCREEN UR 2021-09-13 23:02:00 Test Item Value Reference Range Interpretation Comments URN COCAINE (test POSITIVE See_Comment A UNCONFIRME D code = COCAURN) SCcutoff SCREENING RE SULTS SHOULD NOT BE U SED FORNON-MEDICAL PURPOSES. [Automated message] The system which generated this result transmit rosa isela reference range : <300 NG/ML. The reference range was not used to interpret this result as normal/abnormal . URN CANNABINOIDS NEGATIVE See_Comment UNCONFIRMED (test code = SCcutoff SCREENING RESUL TS CANNABURN) SHOULD NOT BE U SED FORNON-MEDICAL PURPOSES. [Automated message] The system which generated this result transmit rosa isela reference range : <50 NG/ML. The reference range was not used to interpret this result as normal/abnormal . URN AMPHETAMINE (test NEGATIVE See_Comment UNCONF IRMED code = AMPHETURN) SCcutoff SCREENING RESULTS SHOULD NOT BE U SED FORNON-MEDICAL PURPOSES. [Automated message] The system which generated this result transmit rosa isela reference range : <1000 NG/ML. Th e reference range was not used to interpret this result as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 MORPHOLOGY (BEAKER) (test code Normal = 487) PLT MORPHOLOGY (BEAKER) (test code Normal = 486) ANISOCYTOSIS (BEAKER) (test code = 1+ few 961) POLYCHROMATOPHILLIC RBCS(BEAKER) 1+ few (test code = 478) BASIC METABOLIC [id number] 04:28:00 Test Item Value Reference Range Interpretation Comments SODIUM (BEAKER) 135 meq/L 135-148 (test code = 381) POTASSIUM (BEAKER) 4.0 meq/L 3.6-5.5 (test code = 379) CHLORIDE (BEAKER) 103 meq/L 98-106 (test code = 382) CO2 (BEAKER) (test 22 meq/L 20-29 code = 355) BLOOD UREA NITROGEN 15 mg/dL 10-26 (BEAKER) (test code = 354) CREATININE (BEAKER) 0.89 mg/dL 0.50-1.20 (test code = 358) GLUCOSE RANDOM 107 mg/dL 70-110 (BEAKER) (test code = 652) CALCIUM (BEAKER) 8.4 mg/dL 8.5-10.5 L (test code = 697) EGFR (BEAKER) (test 87 mL/min/1.73 ESTIMA ROSA ISELA GFR IS code = 1092) sq m NOT ACCURATE CREATININE CLEARANCE IN PREDICTING GLOMERULAR FILTRATION RATE . ESTIMATED GFR I S NOT APPLICABLE FOR DIALYSIS PATIEN TS. Plastic Surgery Nurse ID - SHANNONPT/[id number] 04:28:00 Test Item Value Reference Range Interpretation Comments PROTIME (BEAKER) (test 10.4 seconds 9.8-12.0 Final Information code = 759) (Auto Output) INR (BEAKER) (test 0.96 See_Comment Final Inf ormation code = 370) (Auto Output) [Automated mess age] The system VetCloud generated this result transmit rosa isela reference range : <=5.90. The reference range was not used to interpret this result as normal/abnormal . PARTIAL THROMBOPLASTIN 26.5 seconds 25.8-34.5 Final Information TIME (BEAKER) (test (Auto Ou tput) code = 760) RECOMMENDED COUMADIN/WARFARIN INR THERAPY RANGESSTANDARD DOSE: 2.0 - 3.0 Includes: PROPHYLAXIS forvenous thrombosis, systemic embolization; TREATMENT for venous thrombosis and/or pulmonary embolus.HIGH RISK: Target INR is 2.5-3.5 for patients with mechanical heart valves.CBC WITH PLATELET COUNT + MANUAL DIFF 2021-01-16 04:16:00 Test Item Value Reference Range Interpretation Comments WHITE BLOOD CELL COUNT (BEAKER) 5.8 K/ L 4.0-10.0 (test code = 775) RED BLOOD CELL COUNT (BEAKER) 2.81 M/ L 4.20-5.80 L (test code = 761) HEMOGLOBIN (BEAKER) (test code = 8.7 GM/DL 13.0-16.8 L 410) HEMATOCRIT (BEAKER) (test code = 26.6 % 36.0-50.0 L 411) MEAN CORPUSCULAR VOLUME (BEAKER) 94.7 fL 82.0-99.0 (test code = 753) MEAN CORPUSCULAR HEMOGLOBIN 31.0 pg 27.0-33.0 (BEAKER) (test code = 751) MEAN CORPUSCULAR HEMOGLOBIN CONC 32.7 GM/DL 32.0-36.0 (BEAKER) (test code = 752) RED CELL DISTRIBUTION WIDTH 14.6 % 12.0-15.0 (BEAKER) (test code = 412) PLATELET COUNT (BEAKER) (test 174 K/CU MM 150-430 code = 756) MEAN PLATELET VOLUME (BEAKER) 10.9 fL 6.0-11.5 (test code = 754) NUCLEATED RED BLOOD CELLS 0 /100 WBC 0-0 (BEAKER) (test code = 413) RAD, CHEST, 1 VIEW, NON [id number] 11:28:00Reason for exam:->shortness of breathShould this be performed at the bedside?->Yes [facility] [place] [facility] 1960 Sex: MFINAL REPORT Chest AP portable erect Comparison exam: 08/15/2020 His tory provided: Shortness of breath Heart size within normal limits. Prior sternotomy. Lungs grossly clear and vascularity normal. Left lower lateral rib fractures are partially demonstrated. These appear to be chronic by correlation with prior chest x-ray. However, if the patient has had chest trauma,a rib series may be performed. Signed: Danny Walls MDReport Verified Date/Time: 01/15/2021 11:28:14 Reading Location: [facility] Diagnostic Imaging Reading Room - [facility] 1.310.12 [id number] 10:02:00 Test Item Value Reference Range Interpretation Comments PROTIME (BEAKER) (test 10.3 seconds 9.8-12.0 Final Information code = 759) (Auto Output) INR (BEAKER) (test 0.95 See_Comment Final Inf ormation code = 370) (Auto Output) [Automated mess age] The system [employer]et[employer] generated this result transmit rosa isela reference range : <=5.90. The reference range was not used to interpret this result as normal/abnormal . PARTIAL THROMBOPLASTIN 24.5 seconds 25.8-34.5 L Final Information TIME (BEAKER) (test (Auto Ou tput) code = 760) RECOMMENDED COUMADIN/WARFARIN INR THERAPY RANGESSTANDARD DOSE: 2.0 - 3.0 Includes: PROPHYLAXIS forvenous thrombosis, systemic embolization; TREATMENT for venous thrombosis and/or pulmonary embolus.HIGH RISK: Target INR is 2.5-3.5 for patients with mechanical heart valves.RAD, FEMUR, MIN. 2 VIEWS, [id number] 09:41:00Reason for exam:->right femur fx comparissonShould this be performed at the bedside?->Yes [facility] [place] HU[place]HRIES MCKINLEY : 1960 Sex: MFINAL REPORT Right femur, 2 views.Left femur, 2 views. *History: Right femur fracture. Findings: Vascular calcifications are present. The bones are mildly osteopenic. Acomminuted fracture of the distal right femoral shaft is present with lateral angulation and displacement of the distal fragment and extension of the fracture to the femoral prosthesis. There is no evidence of dislocation. There are no erosions or periosteal reaction. Patient has had prior total rightknee replacement. Mild degenerative changes are present in both hip joints. The left femur is intact without evidence of fracture or dislocation. IMPRESSION: 1. Comminuted displaced distal right femoral fracture as described above.2. Normal left femur. Signed: Vivek Esteban MDReport Verified Date/Time: 01/14/2021 09:41:42 Reading Location: [facility] Diagnostic Imaging Reading Room - [facility] 1.310.12 RAD, FEMUR, MIN. 2 VIEWS, [id number] 09:41:00Reason for exam:- >Right femur fxShould this be performed at the bedside?->Yes [facility] [place] [facility] : 1960 Sex: MFINAL REPORT Right femur, 2 views.Left femur, 2 views. *History: Right femur fracture. Findings: Vascular calcifications are present. The bones are mildly osteopenic. Acomminuted fracture of the distal right femoral shaft is present with lateral angulation and displacement of the distal fragment and extension of the fracture to the femoral prosthesis. There is no evidence of dislocation. There are no erosions or periosteal reaction. Patient has had prior total rightknee replacement. Mild degenerative changes are present in both hip joints. The left femur is intact without evidence of fracture or dislocation. IMPRESSION: 1. Comminuted displaced distal right femoral fracture as described above.2. Normal left femur. Signed: Vivek Esteban Verified Date/Time: 01/14/2021 09:41:42 Reading Location: [facility] Diagnostic Imaging Reading Room - [address] COMPREHENSIVE METABOLIC [id number] 04:22:00 Test Item Value Reference Range Interpretation Comments TOTAL PROTEIN 6.3 gm/dL 6.0-8.5 (BEAKER) (test code = 770) ALBUMIN (BEAKER) 3.7 g/dL 3.5-5.0 (test code = 1145) ALKALINE PHOSPHATASE 78 U/L 30-115 (BEAKER) (test code = 346) BILIRUBIN TOTAL 0.7 mg/dL 0.1-1.2 (BEAKER) (test code = 377) SODIUM (BEAKER) (test 131 meq/L 135-148 L code = 381) POTASSIUM (BEAKER) 4.2 meq/L 3.6-5.5 (test code = 379) CHLORIDE (BEAKER) 96 meq/L 98-106 L (test code = 382) CO2 (BEAKER) (test 24 meq/L 20-29 code = 355) BLOOD UREA NITROGEN 19 mg/dL 10-26 (BEAKER) (test code = 354) CREATININE (BEAKER) 1.17 mg/dL 0.50-1.20 (test code = 358) GLUCOSE RANDOM 108 mg/dL 70-110 (BEAKER) (test code = 652) CALCIUM (BEAKER) 8.3 mg/dL 8.5-10.5 L (test code = 697) AST (SGOT) (BEAKER) 27 U/L 5-40 (test code = 353) ALT (SGPT) (BEAKER) 28 U/L 5-50 (test code = 347) EGFR (BEAKER) (test 63 mL/min/1.73 ESTIMA ROSA ISELA GFR IS code = 1092) sq m NOT ACCURATE CREATININE CLEARANCE IN PREDICTING GLOMERULAR FILTRATION RATE . ESTIMATED GFR I S NOT APPLICABLE FOR DIALYSIS PATIEN TS. Plastic Surgery Nurse ID - SHANNONCBC W/PLT COUNT & AUTO [id number] 03:56:00 Test Item Value Reference Range Interpretation Comments WHITE BLOOD CELL COUNT (BEAKER) 6.6 K/ L 4.0-10.0 (test code = 775) RED BLOOD CELL COUNT (BEAKER) 3.18 M/ L 4.20-5.80 L (test code = 761) HEMOGLOBIN (BEAKER) (test code = 9.6 GM/DL 13.0-16.8 L 410) HEMATOCRIT (BEAKER) (test code = 30.2 % 36.0-50.0 L 411) MEAN CORPUSCULAR VOLUME (BEAKER) 95.0 fL 82.0-99.0 (test code = 753) MEAN CORPUSCULAR HEMOGLOBIN 30.2 pg 27.0-33.0 (BEAKER) (test code = 751) MEAN CORPUSCULAR HEMOGLOBIN CONC 31.8 GM/DL 32.0-36.0 L (BEAKER) (test code = 752) RED CELL DISTRIBUTION WIDTH 14.6 % 12.0-15.0 (BEAKER) (test code = 412) PLATELET COUNT (BEAKER) (test 167 K/CU MM 150-430 code = 756) MEAN PLATELET VOLUME (BEAKER) 10.5 fL 6.0-11.5 (test code = 754) NUCLEATED RED BLOOD CELLS 0 /100 WBC 0-0 (BEAKER) (test code = 413) NEUTROPHILS RELATIVE PERCENT 62 % (BEAKER) (test code = 429) LYMPHOCYTES RELATIVE PERCENT 19 % (BEAKER) (test code = 430) MONOCYTES RELATIVE PERCENT 16 % (BEAKER) (test code = 431) EOSINOPHILS RELATIVE PERCENT 3 % (BEAKER) (test code = 432) BASOPHILS RELATIVE PERCENT 1 % (BEAKER) (test code = 437) NEUTROPHILS ABSOLUTE COUNT 4.03 K/ L 1.80-8.00 (BEAKER) (test code = 670) LYMPHOCYTES ABSOLUTE COUNT 1.22 K/ L 1.48-4.50 L (BEAKER) (test code = 414) MONOCYTES ABSOLUTE COUNT (BEAKER) 1.02 K/ L 0.00-1.30 (test code = 415) EOSINOPHILS ABSOLUTE COUNT 0.22 K/ L 0.00-0.50 (BEAKER) (test code = 416) BASOPHILS ABSOLUTE COUNT (BEAKER) 0.04 K/ L 0.00-0.20 (test code = 417) IMMATURE GRANULOCYTES-RELATIVE 0 % 0-0 PERCENT (BEAKER) (test code = 2801) RAD, KNEE, 1 OR 2 VIEWS, [id number] 12:41:00Reason for exam:->femur fractureShould this be performed at the bedside?->protable [facility] [place] [facility] : 1960 Sex: MFINAL REPORT X-ray right knee, two views History: femur fracture Com parison: None available. Discussion: Redemonstration of a displaced fracture of the distal right femoral shaft which is partially visualized. There is a lucency extending along the distal femoral fracture fragment to the level of the arthroplasty with uncertain termination. Hardware appears to be in proper alignment. Prominent suprapatellar joint effusion is noted. IMPRESSION: Partially visualized displaced oblique fracture of the distal right femoral shaft is noted, with improved alignment compared to outside hospital radiograph dated one day earlier.Linear lucency along the distal fracture fragment extending to the level of the knee joint is noted with uncertain distal termination.Consider CT scan for further evaluation if clinically indicated. Signed: Michael Braxton MDReport Verified Date/Time: 01/13/2021 12:41:56 Reading Location: [address] Transitional Reading Room LIPID [id number] 05:37:00 Test Item Value Reference Range Interpretation Comments TRIGLYCERIDES (BEAKER) (test code = 326 mg/dL 540) CHOLESTEROL (BEAKER) (test code = 182 mg/dL 631) HDL CHOLESTEROL (BEAKER) (test code 37 mg/dL = 976) LDL CHOLESTEROL CALCULATED (BEAKER) 80 mg/dL (test code = 633) Triglyceride Reference Range: Low Risk <150 Borderline 150-199 High Risk 200-499 Very High Risk >=500Cholesterol Reference Range: Low Risk <200 Borderline 200-239 High Risk >240HDL Cholesterol Reference Range: Low Risk >=60 High Risk <40LDL Cholesterol Reference Range: Optimal <100 Near Optimal 100-129 Borderline 130-159 High 160-189 Very High >=190 Plastic Surgery Nurse ID - Lizbeth TBASIC METABOLIC [id number] 05:30:00 Test Item Value Reference Range Interpretation Comments SODIUM (BEAKER) 130 meq/L 135-148 L (test code = 381) POTASSIUM (BEAKER) 4.5 meq/L 3.6-5.5 (test code = 379) CHLORIDE (BEAKER) 95 meq/L 98-106 L (test code = 382) CO2 (BEAKER) (test 22 meq/L 20-29 code = 355) BLOOD UREA NITROGEN 15 mg/dL 10-26 (BEAKER) (test code = 354) CREATININE (BEAKER) 1.20 mg/dL 0.50-1.20 (test code = 358) GLUCOSE RANDOM 125 mg/dL 70-110 H (BEAKER) (test code = 652) CALCIUM (BEAKER) 9.0 mg/dL 8.5-10.5 (test code = 697) EGFR (BEAKER) (test 61 mL/min/1.73 ESTIMA ROSA ISELA GFR IS code = 1092) sq m NOT ACCURATE CREATININE CLEARANCE IN PREDICTING GLOMERULAR FILTRATION RATE . ESTIMATED GFR I S NOT APPLICABLE FOR DIALYSIS PATIEN TS. Plastic Surgery Nurse ID - Lizbeth [id number] 05:30:00 Test Item Value Reference Range Interpretation Comments MAGNESIUM (BEAKER) (test code = 1.8 mg/dL 1.5-3.0 627) Plastic Surgery Nurse ID - Lizbeth [id number] 05:30:00 Test Item Value Reference Range Interpretation Comments PHOSPHORUS (BEAKER) (test code = 4.2 mg/dL 2.5-4.5 604) Plastic Surgery Nurse ID - Lizbeth THEPATIC FUNCTION [id number] 05:30:00 Test Item Value Reference Range Interpretation Comments TOTAL PROTEIN (BEAKER) (test code = 7.3 gm/dL 6.0-8.5 770) ALBUMIN (BEAKER) (test code = 1145) 4.2 g/dL 3.5-5.0 BILIRUBIN TOTAL (BEAKER) (test code 0.7 mg/dL 0.1-1.2 = 377) BILIRUBIN DIRECT (BEAKER) (test 0.3 mg/dL 0.0-0.4 code = 706) ALKALINE PHOSPHATASE (BEAKER) (test 99 U/L 30-115 code = 346) AST (SGOT) (BEAKER) (test code = 34 U/L 5-40 353) ALT (SGPT) (BEAKER) (test code = 36 U/L 5-50 347) Plastic Surgery Nurse ID Adam Nieves YADYOPONIN [id number] 05:28:00 Test Item Value Reference Range Interpretation Comments TROPONIN I (BEAKER) (test code = 0.01 ng/mL 0.00-0.03 397) Troponin I (TnI) levels [...] failure, acidosis, acute neurological disease, and persistent tachyarrhythmia.Plastic Surgery Nurse ID Adam Nieves THEMOGLOBIN A1C 2021-01-13 05:21:00 Test Item Value Reference Range Interpretation Comments HEMOGLOBIN A1C (BEAKER) (test code = 5.4 % 4.3-6.1 368) Plastic Surgery Nurse ID Adam Nieves TCBC W/PLT COUNT & AUTO [id number] 05:05:00 Test Item Value Reference Range Interpretation Comments WHITE BLOOD CELL COUNT (BEAKER) 7.4 K/ L 4.0-10.0 (test code = 775) RED BLOOD CELL COUNT (BEAKER) 4.00 M/ L 4.20-5.80 L (test code = 761) HEMOGLOBIN (BEAKER) (test code = 12.1 GM/DL 13.0-16.8 L 410) HEMATOCRIT (BEAKER) (test code = 36.9 % 36.0-50.0 411) MEAN CORPUSCULAR VOLUME (BEAKER) 92.3 fL 82.0-99.0 (test code = 753) MEAN CORPUSCULAR HEMOGLOBIN 30.3 pg 27.0-33.0 (BEAKER) (test code = 751) MEAN CORPUSCULAR HEMOGLOBIN CONC 32.8 GM/DL 32.0-36.0 (BEAKER) (test code = 752) RED CELL DISTRIBUTION WIDTH 14.6 % 12.0-15.0 (BEAKER) (test code = 412) PLATELET COUNT (BEAKER) (test 216 K/CU MM 150-430 code = 756) MEAN PLATELET VOLUME (BEAKER) 10.9 fL 6.0-11.5 (test code = 754) NUCLEATED RED BLOOD [...] (test code = 437) NEUTROPHILS ABSOLUTE COUNT 5.33 K/ L 1.80-8.00 (BEAKER) (test code = 670) LYMPHOCYTES ABSOLUTE COUNT 1.00 K/ L 1.48-4.50 L (BEAKER) (test code = 414) MONOCYTES ABSOLUTE COUNT (BEAKER) 0.97 K/ L 0.00-1.30 (test code = 415) EOSINOPHILS ABSOLUTE COUNT 0.04 K/ L 0.00-0.50 (BEAKER) (test code = 416) BASOPHILS ABSOLUTE COUNT (BEAKER) 0.04 K/ L 0.00-0.20 (test code = 417) IMMATURE GRANULOCYTES-RELATIVE 1 % 0-0 H PERCENT (BEAKER) (test code = 2807) [id number] 05:55:00 Test Item Value Reference Range Interpretation Comments MAGNESIUM (BEAKER) 2.1 mg/dL 1.6-2.6 Specimen slightly (test code = 627) hemolyzed Plastic Surgery Nurse ID - YANETH MBASIC METABOLIC [id number] 05:55:00 Test Item Value Reference Range Interpretation [...] S NOT APPLICABLE FOR DIALYSIS PATIEN TS. Plastic Surgery Nurse ID - YANETH MCBC W/PLT COUNT & AUTO [id number] 05:19:00 Test Item Value Reference Range Interpretation [...] = 2801) RAD, CHEST, 1 VIEW, NON [id number] 07:51:00While IABP in place and following each repositioning of IABPReason for exam:->While IABP in placeand following each repositioning of IABPShould this be performed at the bedside?->Yes [facility] [place] : 1960 Sex: MFINAL REPORT RAD, CHEST, [...] Stable contours.Additional findings: None. Signed: Sabiha Zee MDReport Verified Date/Time: 08/15/2020 07:51:39 Reading Location: [facility] Radiology Reading Room CBC W/PLT COUNT & AUTO [id number] 06:11:00 Test Item Value Reference Range Interpretation [...] 0-1 PERCENT (BEAKER) (test code = 2801) [id number] 05:54:00 Test Item Value Reference Range Interpretation Comments MAGNESIUM (BEAKER) 2.0 mg/dL 1.6-2.6 Specimen slightly (test code = 627) hemolyzed Plastic Surgery Nurse ID - BSBASIC METABOLIC [id number] 05:54:00 Test Item Value Reference Range Interpretation [...] S NOT APPLICABLE FOR DIALYSIS PATIEN TS. Plastic Surgery Nurse ID - [id number] 10:27:00 Test Item Value Reference Range Interpretation Comments MAGNESIUM (BEAKER) (test code = 2.0 mg/dL 1.6-2.6 627) Plastic Surgery Nurse ID - MAIDA FOperator REESE BEY FBASIC METABOLIC [id number] 06:28:00 Test Item Value Reference Range Interpretation [...] S NOT APPLICABLE FOR DIALYSIS PATIEN TS. Plastic Surgery Nurse ID - YANETH MTROPONIN [id number] 06:27:00 Test Item Value Reference Range Interpretation Comments TROPONIN I (BEAKER) (test code = 2.17 ng/mL 0.00-0.03 HH 397) Troponin I (TnI) [...] failure, acidosis, acute neurological disease, and persistent tachyarrhythmia.Plastic Surgery Nurse ID - YANETH MCBC W/PLT COUNT & AUTO [id number] 05:49:00 Test Item Value Reference Range Interpretation [...] = 2801) RAD, CHEST, 1 VIEW, NON [id number] 04:53:00While IABP in place and following each repositioning of IABPReason for exam:->While IABP in placeand following each repositioning of IABPShould this be performed at the bedside?->Yes [facility] [place] [facility] : 1960 Sex: MFINAL REPORT [...] Stable surgical changes.Additional findings: None. Signed: [facility] Verified Date/Time: 08/14/2020 04:53:24 [id number] 03:01:00 Test Item Value Reference Range Interpretation Comments PARTIAL THROMBOPLASTIN TIME 40.3 seconds 22.5-36.0 H (BEAKER) (test code = 760) [id number] 19:46:00 Test Item Value Reference Range Interpretation Comments PARTIAL THROMBOPLASTIN TIME 27.3 seconds 22.5-36.0 (BEAKER) (test code = 760) CBC W/PLT COUNT & AUTO [id number] 19:38:00 Test Item Value Reference Range Interpretation [...] PERCENT (BEAKER) (test code = 2801) PLATELET [id number] 19:38:00 Test Item Value Reference Range Interpretation Comments PLATELET COUNT (BEAKER) (test 218 K/CU MM 150-450 code = 756) SARS-COV2/RT-PCR ([facility])2020-08-13 16:30:00 Test Item Value Reference Range Interpretation Comments SARS-COV2/RT-PCR (test Negative Not Detected, Negative, code = 2253112) See external report for linked test SARS-COV-2 PERFORMING LAB [facility] (test code = 3505021) Negative result for this test determines that [...] of the Act.Testing was performed using the Aldis SARS-CoV-2 assay.Fact Sheet for Healthcare Providers:https://www.[employer]/lakesha/ AX_OAHQ-QbE-1_KRF_Yngy_Wcodg_40-512520.pdfFact Sheet for Healthcare Patients:https://www.[employer].ab juan/lakesha/HT_QVOJ-GdQ-9_Hqttjpi_Ijpv_Anrsg_DN_90-085962Y1.pdfPerforming Laboratory:[facility] [place] [address] [id number] 11:41:00 Test Item Value Reference Range Interpretation Comments ACTIVATED CLOTTING TIME 114 sec : 74 -137 seconds, (BEAKER) (test code = Baseli ne: TESTED AT 441) [facility] [address] [facility], [facility] 30: Plastic Surgery Nurse/Techni norah ID = [id number] for HEYDI COVARRUBIAS TROPONIN [id number] 03:52:00 Test Item Value Reference Range Interpretation [...] failure, acidosis, acute neurological disease, and persistent tachyarrhythmia.Plastic Surgery Nurse ID - YANETH [id number] 02:59:00 Test Item Value Reference Range Interpretation Comments PARTIAL THROMBOPLASTIN TIME 143.9 seconds 22.5-36.0 H (BEAKER) (test code = 760) Prior to initiating [id number] 02:50:00 Test Item Value Reference Range Interpretation Comments FIBRINOGEN LEVEL (BEAKER) (test 334 mg/dl 225-434 code = 658) Prior to initiating heparinBASIC METABOLIC [id number] 02:49:00 Test Item Value Reference Range Interpretation [...] S NOT APPLICABLE FOR DIALYSIS PATIEN TS. Plastic Surgery Nurse ID - YANETH [id number] 02:49:00 Test Item Value Reference Range Interpretation Comments MAGNESIUM (BEAKER) (test code = 1.5 mg/dL 1.6-2.6 L 627) Plastic Surgery Nurse ID - YANETH MCBC W/PLT COUNT & AUTO [id number] 02:45:00 Test Item Value Reference Range Interpretation [...] = 2801) RAD, CHEST, 1 VIEW, NON [id number] 02:40:00While IABP in place and following each repositioning of IABPReason for exam:->While IABP in placeand following each repositioning of IABPShould this be performed at the bedside?->Yes [facility] [place] [facility] : 1960 Sex: MFINAL REPORT [...] Ciro Ruvalcaba MDReport Verified Date/Time: 08/13/2020 02:40:42 POCT-ACT 2020-08-12 21:27:00 Test Item Value Reference Range Interpretation Comments ACTIVATED CLOTTING TIME 307 sec : 74 -137 seconds, (BEAKER) (test code = Baseli ne: TESTED AT 441) [facility] [address] [place] [address], [facility] 30: Plastic Surgery Nurse/Techni norah ID = [id number] for PEPE Diaz [id number] 21:01:00 Test Item Value Reference Range Interpretation Comments ACTIVATED CLOTTING TIME 235 sec : 74 -137 seconds, (BEAKER) (test code = Baseli ne: TESTED AT 441) [address], [facility] 30: Plastic Surgery Nurse/Techni norah ID = [id number] for BERNADETTE JOSEPH TROPONIN [id number] 19:47:00 Test Item Value Reference Range Interpretation Comments TROPONIN I (BEAKER) (test code = 4.13 ng/mL 0.00-0.03 [facility]) Troponin I (TnI) levels must be interpreted [...] failure, acidosis, acute neurological disease, and persistent tachyarrhythmia.Plastic Surgery Nurse ID - [id number] 19:35:00 Test Item Value Reference Range Interpretation [...] for patients wiht mechanical heart valves.BASIC METABOLIC [id number] 19:35:00 Test Item Value Reference Range Interpretation [...] S NOT APPLICABLE FOR DIALYSIS PATIEN TS. Plastic Surgery Nurse ID - [id number] 19:34:00 Test Item Value Reference Range Interpretation [...] for patients wiht mechanical heart valves.LACTIC ACID, [id number] 19:33:00 Test Item Value Reference Range Interpretation Comments LACTATE BLOOD VENOUS 1.60 mmol/L 0.50-2.20 Specime n slightly (2) (BEAKER) (test hemolyzed code = 2872) Plastic Surgery Nurse ID - DBCBC W/PLT COUNT & AUTO [id number] 19:22:00 Test Item Value Reference Range Interpretation [...] (BEAKER) (test code = 2801) RAD, CHEST, 2 [id number] 13:16:00Reason for Exam:->[facility] [place] : 1960 Sex: MFINAL REPORT INDICATION: postsurgical follow up COMPARISON: None ROSSY HNIQUE: Frontal and lateral views of the chest. FINDINGS: Lungs and pleura: Clear lungs. No effusion.Heart and mediastinum: Normal heart size. Unremarkable mediastinal contours.Osseous structures: No acute abnormality.Additional findings: None. IMPRESSION: No acute intrathoracic abnormality. Signed: Sabiha Weaver Verified Date/Time: 07/31/2020 13:16:51 Reading Location: [facility] Radiology Reading Room POCT-GLUCOSE [id number] 11:26:00 Test Item Value Reference Range Interpretation Comments POC-GLUCOSE METER 118 mg/dL 70-110 H : TESTED A T [facility] 6720 (BEAKER) (test code = [place], 1538) 98372: Plastic Surgery Nurse/Techni norah ID = [id number] for EDITH KAY POCT-GLUCOSE [id number] 09:19:00 Test Item Value Reference Range Interpretation Comments POC-GLUCOSE METER 106 mg/dL 70-110 : TESTED A T [facility] 6720 (BEAKER) (test code = CHRISTINA Horton [facility], 1538) 29581: Plastic Surgery Nurse/Techni norah ID = [id number] for EDITH KAY BASIC METABOLIC [id number] 06:55:00 Test Item Value Reference Range Interpretation [...] S NOT APPLICABLE FOR DIALYSIS PATIEN TS. Plastic Surgery Nurse ID - YANETH [id number] 06:55:00 Test Item Value Reference Range Interpretation Comments MAGNESIUM (BEAKER) (test code = 1.8 mg/dL 1.6-2.6 627) Plastic Surgery Nurse ID - YANETH MCBC W/PLT COUNT & AUTO [id number] 06:33:00 Test Item Value Reference Range Interpretation [...] = 2801) RAD, CHEST, 1 VIEW, NON [id number] 05:50:00Reason for exam:->chest tubes/ vapothermShould this be [...] Signed: Joyce Ragland Verified Date/Time: 07/18/2020 05:50:00 POCT-GLUCOSE [id number] 21:14:00 Test Item Value Reference Range Interpretation Comments POC-GLUCOSE METER 128 mg/dL 70-110 H : TESTED A T [facility] [facility] 6720 (BEAKER) (test code = [employer] [place], 1538) 71060: Plastic Surgery Nurse/Techni norah ID = [id number] for Nataliia Lowe OSMOLALITY, [id number] 17:58:00 Test Item Value Reference Range Interpretation Comments OSMOLALITY, SERUM (BEAKER) (test 269 mOsm/kg 275-295 L code = 615) POTASSIUM, RANDOM [id number] 17:44:00 Test Item Value Reference Range Interpretation Comments POTASSIUM URINE (BEAKER) (test 71.0 meq/L code = 195) Reference Range: No NormalsOperator ID - BSSODIUM, RANDOM [id number] 17:44:00 Test Item Value Reference Range Interpretation Comments SODIUM URINE (BEAKER) (test code = 40 meq/L 243) Reference Range: No NormalsOperator ID - BSUREA NITROGEN, RANDOM [id number] 17:44:00 Test Item Value Reference Range Interpretation Comments UREA NITROGEN URINE (BEAKER) (test 475 mg/dL code = 538) Reference Range: No NormalsOperator ID - BSPOCT-GLUCOSE [id number] 16:56:00 Test Item Value Reference Range Interpretation Comments POC-GLUCOSE METER 105 mg/dL 70-110 : TESTED A T [facility] 6720 (BEAKER) (test code = [employer] [place], 1538) 68907: Plastic Surgery Nurse/Techni norah ID = [id number] for KASSIDY TAVARES OSMOLALITY, [id number] 16:29:00 Test Item Value Reference Range Interpretation Comments OSMOLALITY URINE (BEAKER) (test 442 mOsm/kg 50-1,200 mOsm/kg code = 614) POCT-GLUCOSE [id number] 11:03:00 Test Item Value Reference Range Interpretation Comments POC-GLUCOSE METER 116 mg/dL 70-110 H : TESTED A T [facility] 6720 (BEAKER) (test code = [facility], 1538) 34765: Plastic Surgery Nurse/Techni norah ID = [id number] for KASSIDY TAVARES RAD, CHEST, 1 VIEW, NON [id number] 09:24:00Reason for exam:->chest tubes/ vapothermShould this be [...] by technique with sternotomy wires. Signed: Felipe Sandhuort Verified Date/Time: 07/17/2020 09:24:02 Reading Location: [facility] Radiology Reading Room POCT-GLUCOSE [id number] 07:42:00 Test Item Value Reference Range Interpretation Comments POC-GLUCOSE METER 137 mg/dL 70-110 H : TESTED A T [facility] 6720 (BEAKER) (test code = [facility], 1538) 32921: Plastic Surgery Nurse/Techni norah ID = [id number] for KASSIDY TAVARES BASIC METABOLIC [id number] 07:26:00 Test Item Value Reference Range Interpretation [...] S NOT APPLICABLE FOR DIALYSIS PATIEN TS. Plastic Surgery Nurse ID Adam LORENZ [id number] 07:26:00 Test Item Value Reference Range Interpretation Comments MAGNESIUM (BEAKER) (test code = 1.8 mg/dL 1.6-2.6 627) Plastic Surgery Nurse ID Adam LORENZ LCBC W/PLT COUNT & AUTO [id number] 07:14:00 Test Item Value Reference Range Interpretation [...] H PERCENT (BEAKER) (test code = 2801) BLOOD GAS, [id number] 06:13:00 Test Item Value Reference Range Interpretation [...] 1819) 21.0 Please obtain room air ABG.POCT-GLUCOSE [id number] 21:26:00 Test Item Value Reference Range Interpretation Comments POC-GLUCOSE METER 123 mg/dL 70-110 H : TESTED A T [facility] 6720 (BEAKER) (test code = [facility], 1538) 64209: Plastic Surgery Nurse/Techni norah ID = [id number] for SHANA SKY SE POCT-GLUCOSE [id number] 17:43:00 Test Item Value Reference Range Interpretation Comments POC-GLUCOSE METER 104 mg/dL 70-110 : TESTED A T [facility] 6720 (BEAKER) (test code = [facility], 1538) 53610: Plastic Surgery Nurse/Techni norah ID = [id number] for TAHIR NTMALORIE POWERSWITHA [id number] 14:53:00 Test Item Value Reference Range Interpretation Comments FERRITIN (BEAKER) (test code = 214.98 ng/mL 5.00-275.00 361) Plastic Surgery Nurse ID - BSVITAMIN B12 AND [id number] 14:53:00 Test Item Value Reference Range Interpretation Comments VITAMIN B12 (BEAKER) (test code = 1276 pg/mL 213-816 H 774) FOLATE (BEAKER) (test code = 362) 6.50 ng/mL >=7.00 L Plastic Surgery Nurse ID - BSIRON, TIBC, % SAT. (WITHOUT FERRITIN)2020-07-16 14:18:00 Test Item Value Reference Range Interpretation Comments IRON (BEAKER) (test code = 547) 30.0 ug/dL 40.0-160.0 L TOTAL IRON BINDING CAPACITY 336 ug/dL 250-450 (BEAKER) (test code = 769) IRON % SATURATION (2) (BEAKER) 9 % 20-55 L (test code = 2590) Plastic Surgery Nurse ID - AAHAMIDPOCT-GLUCOSE [id number] 11:30:00 Test Item Value Reference Range Interpretation Comments POC-GLUCOSE METER 115 mg/dL 70-110 H : TESTED A T [facility] 6720 (BEAKER) (test code = [facility], 1538) 54944: Plastic Surgery Nurse/Techni norah ID = [id number] for JASON SHEFFIELD RAD, CHEST, 1 VIEW, NON [id number] 11:19:00Reason for exam:->chest tubes/ vapothermShould this be [...] MDReport Verified Date/Time: 07/16/2020 11:19:22 Reading Location: [facility] Radiology Reading Room POCT-GLUCOSE [id number] 07:23:00 Test Item Value Reference Range Interpretation Comments POC-GLUCOSE METER 114 mg/dL 70-110 H : TESTED A T [facility] 6720 (BEAKER) (test code = [place], 1538) 93142: Plastic Surgery Nurse/Techni norah ID = [id number] for DILSHAD JOSEPH BASIC METABOLIC [id number] 07:16:00 Test Item Value Reference Range Interpretation [...] S NOT APPLICABLE FOR DIALYSIS PATIEN TS. Plastic Surgery Nurse ID - YANETH [id number] 07:16:00 Test Item Value Reference Range Interpretation Comments MAGNESIUM (BEAKER) (test code = 2.0 mg/dL 1.6-2.6 627) Plastic Surgery Nurse ID - YANETH MCBC W/PLT COUNT & AUTO [id number] 06:27:00 Test Item Value Reference Range Interpretation [...] PERCENT (BEAKER) (test code = 2801) POCT-GLUCOSE [id number] 22:38:00 Test Item Value Reference Range Interpretation Comments POC-GLUCOSE METER 130 mg/dL 70-110 H : TESTED A T [facility] 6720 (BEAKER) (test code = [facility], 1538) 35951: Plastic Surgery Nurse/Techni norah ID = [id number] for WILLIAM MCMANUS POCT-GLUCOSE [id number] 17:00:00 Test Item Value Reference Range Interpretation Comments POC-GLUCOSE METER 116 mg/dL 70-110 H : TESTED A T [facility] 6720 (BEAKER) (test code = [facility], 1538) 39154: Plastic Surgery Nurse/Techni norah ID = [id number] for EDITH KAY POCT-GLUCOSE [id number] 11:22:00 Test Item Value Reference Range Interpretation Comments POC-GLUCOSE METER 141 mg/dL 70-110 H : TESTED A T [facility] 6720 (BEAKER) (test code = [facility], 1538) 51161: Plastic Surgery Nurse/Techni norah ID = [id number] for EDITH KAY POCT-GLUCOSE [id number] 07:53:00 Test Item Value Reference Range Interpretation Comments POC-GLUCOSE METER 114 mg/dL 70-110 H : TESTED A T [facility] 6720 (BEAKER) (test code = [facility], [facility]8) 82411: Plastic Surgery Nurse/Techni norah ID = [id number] for EDITH KAY RAD, CHEST, 1 VIEW, NON [id number] 07:52:00Reason for exam:->chest tubes/ vapothermShould this be [...] Martinez Verified Date/Time: 07/15/2020 07:52:20 C METABOLIC [id number] 06:33:00 Test Item Value Reference Range Interpretation [...] S NOT APPLICABLE FOR DIALYSIS PATIEN TS. Plastic Surgery Nurse ID - PIAYA [id number] 06:23:00 Test Item Value Reference Range Interpretation Comments MAGNESIUM (BEAKER) (test code = 2.0 mg/dL 1.6-2.6 627) Plastic Surgery Nurse ID - PITIGIST LCBC W/PLT COUNT & AUTO [id number] 05:56:00 Test Item Value Reference Range Interpretation [...] PERCENT (BEAKER) (test code = 2801) POCT-GLUCOSE [id number] 21:49:00 Test Item Value Reference Range Interpretation Comments POC-GLUCOSE METER 121 mg/dL 70-110 H : TESTED A T [facility] 6720 (BEAKER) (test code = [place], 1538) 69289: Plastic Surgery Nurse/Techni norah ID = [id number] for GO NZALES IIITHONY BASIC METABOLIC [id number] 05:04:00 Test Item Value Reference Range Interpretation [...] S NOT APPLICABLE FOR DIALYSIS PATIEN TS. [id number] 05:04:00 Test Item Value Reference Range Interpretation Comments MAGNESIUM (BEAKER) (test code = 2.1 mg/dL 1.6-2.6 627) RAD, CHEST, 1 VIEW, NON [id number] 04:51:00Reason for exam:->chest tubes/ vapothermShould this be [...] healed left-sided rib fractures. Signed: Joyce Ragland MDReport Verified Date/Time: 07/14/2020 04:51:20 CBC W/PLT COUNT [...] PERCENT (BEAKER) (test code = 2801) POCT-GLUCOSE [id number] 01:33:00 Test Item Value Reference Range Interpretation Comments POC-GLUCOSE METER 134 mg/dL 70-110 H : TESTED A T [facility] 6720 (BEAKER) (test code = [place], 1538) 21735: Plastic Surgery Nurse/Techni norah ID = [id number] for [facility] III, THONY BASIC METABOLIC [id number] 07:23:00 Test Item Value Reference Range Interpretation [...] S NOT APPLICABLE FOR DIALYSIS PATIEN TS. Plastic Surgery Nurse ID - [id number] 06:58:00 Test Item Value Reference Range Interpretation Comments MAGNESIUM (BEAKER) (test code = 2.1 mg/dL 1.6-2.6 627) Plastic Surgery Nurse ID - EDASICBC W/PLT COUNT & AUTO [id number] 06:41:00 Test Item Value Reference Range Interpretation [...] = 2801) RAD, CHEST, 1 VIEW, NON [id number] 05:53:00Reason for exam:->chest tubes/ vapothermShould this be [...] Ragland MDReport Verified Date/Time: 07/13/2020 05:53:50 POCT-GLUCOSE [id number] 06:29:00 Test Item Value Reference Range Interpretation Comments POC-GLUCOSE METER 113 mg/dL 70-110 H : [facility] (BEAKER) (test code = CHRISTINA Horton [facility], 1538) 51133: Plastic Surgery Nurse/Techni norah ID = [id number] for JAMIE TA BASIC METABOLIC [id number] 06:20:00 Test Item Value Reference Range Interpretation [...] S NOT APPLICABLE FOR DIALYSIS PATIEN TS. Plastic Surgery Nurse ID - YANETH [id number] 06:15:00 Test Item Value Reference Range Interpretation Comments MAGNESIUM (BEAKER) (test code = 2.1 mg/dL 1.6-2.6 627) Plastic Surgery Nurse ID - YANETH MCBC W/PLT COUNT & AUTO [id number] 04:58:00 Test Item Value Reference Range Interpretation [...] (BEAKER) (test code = 2801) BLOOD GAS, [id number] 04:37:00 Test Item Value Reference Range Interpretation [...] 36.0 % RAD, CHEST, 1 VIEW, NON [id number] 03:32:00Reason for exam:->chest tubes/ vapothermShould this be [...] telectasis. There is no pneumothorax. Signed: Joyce Raglandeport Verified Date/Time: 07/12/202003:32:05 POCT-GLUCOSE [id number] 23:35:00 Test Item Value Reference Range Interpretation Comments POC-GLUCOSE METER 125 mg/dL 70-110 H : TESTED A T [facility] 6720 (BEAKER) (test code = [facility], 1538) 44435: Plastic Surgery Nurse/Techni norah ID = [id number] for JAMIE TA POCT-GLUCOSE [id number] 18:12:00 Test Item Value Reference Range Interpretation Comments POC-GLUCOSE METER 127 mg/dL 70-110 H : TESTED A T [facility] 6720 (BEAKER) (test code = [facility], 1538) 89776: Plastic Surgery Nurse/Techni norah ID = [id number] for Adrianne Monzon BASIC METABOLIC [id number] 12:24:00 Test Item Value Reference Range Interpretation [...] S NOT APPLICABLE FOR DIALYSIS PATIEN TS. Plastic Surgery Nurse ID - JAEL [id number] 12:17:00 Test Item Value Reference Range Interpretation Comments MAGNESIUM (BEAKER) (test code = 2.2 mg/dL 1.6-2.6 627) Plastic Surgery Nurse ID - JAEL ZIMMERMAN GAS, [id number] 11:58:00 Test Item Value Reference Range Interpretation [...] (test code = 1819) 80.0 % POCT-GLUCOSE [id number] 11:48:00 Test Item Value Reference Range Interpretation Comments POC-GLUCOSE METER 132 mg/dL 70-110 H : TESTED A T [facility] 6720 (BEAKER) (test code = [place], 1538) 74322: Plastic Surgery Nurse/Techni norah ID = [id number] for Adrianne Monzon PLATELET AGGREGATION: FUNCTION [id number] 08:03:00 Test Item Value Reference Range Interpretation Comments [place] [address] Dee This i s a (BEAKER) (test code = MD [facility] rosa isela 4931) (electronic result. signature) Previous result was Dee Campbell MD (electronic signature) on 07/09/2020 at 1019 CDT PLATELET COUNT AGG 179 K/CU MM 150-450 This is a (BEAKER) (test code = etta rosa isela 8272) result. Previous result was 179 K/CU MM on 07/09/2020 at 1019 CDT ADP (BEAKER) (test 47 % 62-100 L This is a code = 3794) corrected result. Previous result was 47 % on 07/09/2020 at 1019 CDT PLATELET RICH 206 k/cu mm 200-300 This is a PLASMA(BEAKER) (test correct ed code = 2134) result. Previous result was 206 k/cu mm on 07/09/2020 at 1019 CDT PLATELET FUNCTION Decreased SCREEN INTERPRETATION aggregation with (BEAKER) (test code = ADP which 4652) indicates platelet dysfunction that may be due to medication effect, uremia, or other platelet function disorders. Clinical correlation is required. Platelet Function Screen results may be falsely low with platelet counts<75,000/cu mm.Plastic Surgery Nurse ID- [id number] ID - [id number] ID - [id number] due to QC investigation. Spoke to RN ID:[id number] SATURATION, [id number] 07:23:00 Test Item Value Reference Range Interpretation Comments O2 SATURATION (MEASURED) (BEAKER) 65.6 % (test code = 1455) BLOOD GAS, [id number] 07:23:00 Test Item Value Reference Range Interpretation [...] 100.0 % RAD, CHEST, 1 VIEW, NON [id number] 07:09:00Reason for exam:->chest tubes/ vapothermShould this be [...] Arevalo Verified Date/Time: 07/11/2020 07:09:03 Reading Location: [address] Transitional Reading Room POCT-GLUCOSE [id number] 05:36:00 Test Item Value Reference Range Interpretation Comments POC-GLUCOSE METER 122 mg/dL 70-110 H : TESTED A T [facility] 6720 (BEAKER) (test code = [place], 1538) 38744: Plastic Surgery Nurse/Techni norah ID = [id number] for Lang Gonzalez BASIC METABOLIC [id number] 04:28:00 Test Item Value Reference Range Interpretation [...] S NOT APPLICABLE FOR DIALYSIS PATIEN TS. Plastic Surgery Nurse ID - YANETH [id number] 04:27:00 Test Item Value Reference Range Interpretation Comments PHOSPHORUS (BEAKER) (test code = 3.1 mg/dL 2.3-4.7 604) Plastic Surgery Nurse ID - YANETH [id number] 04:27:00 Test Item Value Reference Range Interpretation Comments MAGNESIUM (BEAKER) (test code = 2.0 mg/dL 1.6-2.6 627) Plastic Surgery Nurse ID - YANETH MCBC (HEMOGRAM ONLY)2020-07-11 04:10:00 Test Item Value Reference [...] (BEAKER) (test code = 413) BLOOD GAS, [id number] 03:31:00 Test Item Value Reference Range Interpretation [...] (test code = 1819) 80.0 % POCT-GLUCOSE [id number] 00:08:00 Test Item Value Reference Range Interpretation Comments POC-GLUCOSE METER 120 mg/dL 70-110 H : TESTED A T [facility] 6720 (BEAKER) (test code = [facility], 1538) 02473: Plastic Surgery Nurse/Techni norah ID = [id number] for Lang Gonzalez BLOOD GAS, [id number] 18:15:00 Test Item Value Reference Range Interpretation [...] (test code = 1819) 30.0 % POCT-GLUCOSE [id number] 18:10:00 Test Item Value Reference Range Interpretation Comments POC-GLUCOSE METER 117 mg/dL 70-110 H : TESTED A T [facility] 6720 (BEAKER) (test code = [facility], 1538) 19265: Plastic Surgery Nurse/Techni norah ID = [id number] for DOROTHY CASTLE PHEN BASIC METABOLIC [id number] 13:02:00 Test Item Value Reference Range Interpretation [...] S NOT APPLICABLE FOR DIALYSIS PATIEN TS. Plastic Surgery Nurse ID - JAEL [id number] 13:01:00 Test Item Value Reference Range Interpretation Comments MAGNESIUM (BEAKER) (test code = 2.2 mg/dL 1.6-2.6 627) Plastic Surgery Nurse ID - JAEL CBLOOD GAS, [id number] 12:41:00 Test Item Value Reference Range Interpretation [...] code = 1819) 30.0 % OXYGEN SATURATION, [id number] 12:38:00 Test Item Value Reference Range Interpretation Comments O2 SATURATION (MEASURED) (BEAKER) 53.6 % (test code = 1455) BLOOD GAS, [id number] 10:04:00 Test Item Value Reference Range Interpretation [...] code = 1819) 40.0 % BLOOD GAS, [id number] 07:40:00 Test Item Value Reference Range Interpretation [...] (test code = 1819) 40.0 % Temp:: 101.9LACTIC ACID, [id number] 06:18:00 Test Item Value Reference Range Interpretation Comments LACTATE BLOOD ARTERIAL (2) 1.0 mmol/L 0.5-2.2 (BEAKER) (test code = 2874) Plastic Surgery Nurse ID - EDASIBLOOD GAS, [id number] 06:03:00 Test Item Value Reference Range Interpretation [...] (test code = 1819) 60.0 % POCT-GLUCOSE [id number] 06:00:00 Test Item Value Reference Range Interpretation Comments POC-GLUCOSE METER 103 mg/dL 70-110 : TESTED A T [facility] 6720 (BEAKER) (test code = CHRISTINA Horton [facility], 1538) 92458: Plastic Surgery Nurse/Techni norah ID = [id number] for Lang Gonzalez RAD, CHEST, 1 VIEW, NON [id number] 04:47:00while patient is intubated or has chest tubes.Reason for exam:->Status post CV SurgeryShould thisbe performed at the bedside?->YesFINAL REPORT RAD, CHEST, 1 VIEW, NON DEPT INDICATION: Status post CV Surgery COMPARISON: Prior day's exam FINDINGS: Portable frontal view of the chest. IMPRESSION: Support Lines: Interval repositioning of the right IJ Rutledge-Jesus Alberto catheter tip overlying the interlobar pulmonary artery. Otherwise unchanged support apparatus. Lungs and pleura: Unchanged airspace and pleural opacities when allowing for decreased lung volumes.. No pneumothorax.Heart and mediastinum: Stable contours. Stable surgical changes.Additional findings: None. Signed: Maddie Ibrahim MDReport Verified Date/Time: 07/10/2020 04:47:40 BASIC METABOLIC [id number] 04:36:00 Test Item Value Reference Range Interpretation [...] S NOT APPLICABLE FOR DIALYSIS PATIEN TS. Plastic Surgery Nurse ID - [id number] 04:09:00 Test Item Value Reference Range Interpretation Comments PHOSPHORUS (BEAKER) (test code = 4.5 mg/dL 2.3-4.7 604) Plastic Surgery Nurse ID - [id number] 04:09:00 Test Item Value Reference Range Interpretation Comments MAGNESIUM (BEAKER) (test code = 2.1 mg/dL 1.6-2.6 627) Plastic Surgery Nurse ID - EDASILACTIC ACID, [id number] 04:02:00 Test Item Value Reference Range Interpretation Comments LACTATE BLOOD ARTERIAL (2) 1.0 mmol/L 0.5-2.2 (BEAKER) (test code = 2874) Plastic Surgery Nurse ID - EDASICBC (HEMOGRAM ONLY)2020-07-10 03:51:00 Test [...] (BEAKER) (test code = 413) OXYGEN SATURATION, [id number] 03:46:00 Test Item Value Reference Range Interpretation Comments O2 SATURATION (MEASURED) (BEAKER) 61.3 % (test code = 1455) BLOOD GAS, [id number] 03:45:00 Test Item Value Reference Range Interpretation [...] code = 1819) 60.0 % LACTIC ACID, [id number] 01:27:00 Test Item Value Reference Range Interpretation Comments LACTATE BLOOD ARTERIAL (2) 1.5 mmol/L 0.5-2.2 (BEAKER) (test code = 2874) Plastic Surgery Nurse ID - KELECHI Jhaveri ID - EDASIBLOOD GAS, [id number] 00:43:00 Test Item Value Reference Range Interpretation [...] (test code = 1819) 60.0 % POCT-GLUCOSE [id number] 00:20:00 Test Item Value Reference Range Interpretation Comments POC-GLUCOSE METER 99 mg/dL 70-110 : TESTED A T [facility] 6720 (BEAKER) (test code = [place], 1538) 49401: Plastic Surgery Nurse/Techni norah ID = [id number] for Lang Leal BASIC METABOLIC [id number] 23:16:00 Test Item Value Reference Range Interpretation [...] S NOT APPLICABLE FOR DIALYSIS PATIEN TS. Plastic Surgery Nurse ID - KELECHI [id number] 23:15:00 Test Item Value Reference Range Interpretation Comments PHOSPHORUS (BEAKER) (test code = 4.6 mg/dL 2.3-4.7 604) Plastic Surgery Nurse ID - KELECHI [id number] 23:15:00 Test Item Value Reference Range Interpretation Comments MAGNESIUM (BEAKER) (test code = 1.7 mg/dL 1.6-2.6 627) Plastic Surgery Nurse ID - PITIGIST LLACTIC ACID, [id number] 23:11:00 Test Item Value Reference Range Interpretation Comments LACTATE BLOOD ARTERIAL (2) 2.6 mmol/L 0.5-2.2 H (BEAKER) (test code = 2264) Plastic Surgery Nurse ID - KELECHI LCALCIUM, [id number] 23:08:00 Test Item Value Reference Range Interpretation Comments CALCIUM IONIZED (BEAKER) (test 1.05 mmol/L 1.12-1.27 L code = 698) PH, BLOOD (BEAKER) (test code = 7.41 1810) BLOOD GAS, [id number] 23:07:00 Test Item Value Reference Range Interpretation [...] 1819) 60.0 % HGB/HCT (H&H) - STAT [id number] 23:07:00 Test Item Value Reference Range Interpretation Comments HEMOGLOBIN (BEAKER) (test code = 7.3 g/dL 13.0-16.8 L 410) HEMATOCRIT (BEAKER) (test code = 21.0 % 40.0-50.0 L 411) OXYGEN SATURATION, [id number] 23:05:00 Test Item Value Reference Range Interpretation Comments O2 SATURATION (MEASURED) (BEAKER) 66.9 % (test code = 1455) GLUCOSE-STAT [id number] 23:03:00 Test Item Value Reference Range Interpretation Comments GLUCOSE RANDOM (BEAKER) (test code 109 mg/dL 70-110 = 652) SODIUM NA-STAT [id number] 23:03:00 Test Item Value Reference Range Interpretation Comments SODIUM (BEAKER) (test code = 381) 135 meq/L 136-145 L POTASSIUM-STAT [id number] 23:03:00 Test Item Value Reference Range Interpretation Comments POTASSIUM (BEAKER) (test code = 4.0 meq/L 3.6-5.5 379) BLOOD GAS, [id number] 21:47:00 Test Item Value Reference Range Interpretation [...] (BEAKER) (test code = 1819) 60.0 % [id number] 21:13:00 Test Item Value Reference Range Interpretation Comments POTASSIUM (BEAKER) (test code = 4.8 meq/L 3.5-5.1 379) Plastic Surgery Nurse ID - BSLACTIC ACID, [id number] 19:59:00 Test Item Value Reference Range Interpretation Comments LACTATE BLOOD ARTERIAL (2) 4.8 mmol/L 0.5-2.2 HH (BEAKER) (test code = 2874) Plastic Surgery Nurse ID - BSHEMOGLOBIN AND [id number] 19:44:00 Test Item Value Reference Range Interpretation Comments HEMOGLOBIN (BEAKER) (test code = 8.4 GM/DL 13.7-17.5 L 410) HEMATOCRIT (BEAKER) (test code = 25.2 % 40.1-51.0 L 411) Plastic Surgery Nurse ID - [id number] 19:38:00 Test Item Value Reference Range Interpretation Comments POC-GLUCOSE METER 147 mg/dL 70-110 H : [facility] (BEAKER) (test code = CHRISTINA Horton [facility], 1538) [address]: Plastic Surgery Nurse/Techni norah ID = [id number] for Lang Gonzalez TROPONIN [id number] 18:50:00 Test Item Value Reference Range Interpretation [...] failure, acidosis, acute neurological disease, and persistent tachyarrhythmia.Plastic Surgery Nurse ID - [id number] 18:40:00 Test Item Value Reference Range Interpretation Comments PHOSPHORUS (BEAKER) (test code = 5.1 mg/dL 2.3-4.7 H 604) Plastic Surgery Nurse ID - [id number] 18:40:00 Test Item Value Reference Range Interpretation Comments MAGNESIUM (BEAKER) (test code = 1.8 mg/dL 1.6-2.6 627) Plastic Surgery Nurse ID - BSBASIC METABOLIC [id number] 18:40:00 Test Item Value Reference Range Interpretation [...] S NOT APPLICABLE FOR DIALYSIS PATIEN TS. Plastic Surgery Nurse ID - BSLACTIC ACID, [id number] 18:36:00 Test Item Value Reference Range Interpretation Comments LACTATE BLOOD ARTERIAL (2) 3.7 mmol/L 0.5-2.2 H (BEAKER) (test code = 2874) Plastic Surgery Nurse ID - BSBLOOD GAS, [id number] 18:15:00 Test Item Value Reference Range Interpretation [...] (test code = 1819) 50.0 % POCT-GLUCOSE [id number] 18:15:00 Test Item Value Reference Range Interpretation Comments POC-GLUCOSE METER 146 mg/dL 70-110 H : [facility] (BEAKER) (test code = [place], [address]) [address]: Plastic Surgery Nurse/Techni norah ID = [id number] for JASON LIND CBC W/PLT COUNT & AUTO [id number] 17:39:00 Test Item Value Reference Range Interpretation [...] H PERCENT (BEAKER) (test code = 2801) (CELLAVISION MANUAL DIFF)2020-07-09 16:42:00 Test Item Value Reference [...] CONCENTRATION Decreased (CELLAVISION)(BEAKER) (test code = 3438) Plastic Surgery Nurse ID - [id number] ID - Dean comments: Slide comments:RAD, CHEST, 1 VIEW, NON [id number] 16:41:00Reason for exam:->post cardiothoracic surgery/ettShould this be [...] osseous abnormality is identified. Signed: Sundar Berman MDReport Verified Date/Time: 07/09/2020 16:41:23 Reading Location: [facility] C0[facility] Consult Reading Room LACTIC ACID, [id number] 16:20:00 Test Item Value Reference Range Interpretation Comments LACTATE BLOOD 4.1 mmol/L 0.5-2.2 HH Specimen sligh tly ARTERIAL (2) (BEAKER) hemoly zed (test code = 2874) Plastic Surgery Nurse ID - MAIDA [id number] 16:19:00 Test Item Value Reference Range Interpretation Comments MAGNESIUM (BEAKER) 1.8 mg/dL 1.6-2.6 Specimen slightly (test code = 627) hemolyzed Plastic Surgery Nurse ID Adam BEY [id number] 16:19:00 Test Item Value Reference Range Interpretation Comments PHOSPHORUS (BEAKER) 5.0 mg/dL 2.3-4.7 H Specimen slightly (test code = 604) hemolyzed Plastic Surgery Nurse ID Adam BEY FBASIC METABOLIC [id number] 16:19:00 Test Item Value Reference Range Interpretation [...] S NOT APPLICABLE FOR DIALYSIS PATIEN TS. Plastic Surgery Nurse ID Adam BEY FCBC W/PLT COUNT & AUTO [id number] 16:15:00 Test Item Value Reference Range Interpretation [...] WBC 0-0 (BEAKER) (test code = 413) [id number] 16:07:00 Test Item Value Reference Range Interpretation Comments FIBRINOGEN LEVEL (BEAKER) (test 330 mg/dl 225-434 code = 658) [id number] 16:07:00 Test Item Value Reference Range Interpretation Comments PARTIAL THROMBOPLASTIN TIME 32.9 seconds 22.5-36.0 (BEAKER) (test code = 760) PROTHROMBIN TIME/[id number] 16:06:00 Test Item Value Reference Range Interpretation [...] for patients wiht mechanical heart valves.OXYGEN SATURATION, [id number] 15:52:00 Test Item Value Reference Range Interpretation Comments O2 SATURATION (MEASURED) (BEAKER) 78.3 % (test code = 1455) CALCIUM, [id number] 15:51:00 Test Item Value Reference Range Interpretation Comments CALCIUM IONIZED (BEAKER) (test 1.13 mmol/L 1.12-1.27 code = 698) PH, BLOOD (BEAKER) (test code = 7.31 1810) BLOOD GAS, [id number] 15:50:00 Test Item Value Reference Range Interpretation [...] (test code = 1819) 70.0 % GLUCOSE-STAT [id number] 15:50:00 Test Item Value Reference Range Interpretation Comments GLUCOSE RANDOM (BEAKER) (test code 151 mg/dL 70-110 H = 652) HGB/HCT (H&H) - STAT [id number] 15:50:00 Test Item Value Reference Range Interpretation Comments HEMOGLOBIN (BEAKER) (test code = 9.1 g/dL 13.0-16.8 L 410) HEMATOCRIT (BEAKER) (test code = 27.0 % 40.0-50.0 L 411) SODIUM NA-STAT [id number] 15:49:00 Test Item Value Reference Range Interpretation Comments SODIUM (BEAKER) (test code = 381) 135 meq/L 136-145 L POTASSIUM-STAT [id number] 15:49:00 Test Item Value Reference Range Interpretation Comments POTASSIUM (BEAKER) (test code = 4.9 meq/L 3.6-5.5 379) [id number] 15:22:00 Test Item Value Reference Range Interpretation Comments ACTIVATED CLOTTING TIME 120 sec : 74 -137 seconds, (BEAKER) (test code = Baseli ne: TESTED AT 441) [facility] [address] [facility] [place], [address]: Plastic Surgery Nurse/Techni norah ID = [id number] for CA STRO, JORDYN [id number] 15:22:00 Test Item Value Reference Range Interpretation Comments ACTIVATED CLOTTING TIME 499 sec : 74 -137 seconds, (BEAKER) (test code = Baseli ne: TESTED AT 441) [address], [facility] 30: Plastic Surgery Nurse/Techni norah ID = [id number] for CA STRO, JORDYN [id number] 15:22:00 Test Item Value Reference Range Interpretation Comments ACTIVATED CLOTTING TIME 422 sec : 74 -137 seconds, (BEAKER) (test code = Baseli ne: TESTED AT 441) [address], [facility] 30: Plastic Surgery Nurse/Techni norah ID = [id number] for CA STRO, JORDYN [id number] 15:22:00 Test Item Value Reference Range Interpretation Comments ACTIVATED CLOTTING TIME 461 sec : 74 -137 seconds, (BEAKER) (test code = Baseli ne: TESTED AT 441) [address], [facility] 30: Plastic Surgery Nurse/Techni norah ID = [id number] for CA STRO, JORDYN [id number] 15:22:00 Test Item Value Reference Range Interpretation Comments ACTIVATED CLOTTING TIME 813 sec : 74 -137 seconds, (BEAKER) (test code = Baseli ne: TESTED AT 441) [address], [facility] 30: Plastic Surgery Nurse/Techni norah ID = [id number] for CA STRO, JORDYN [id number] 15:22:00 Test Item Value Reference Range Interpretation Comments ACTIVATED CLOTTING TIME 599 sec : 74 -137 seconds, (BEAKER) (test code = Baseli ne: TESTED AT 441) [address], [facility] 30: Plastic Surgery Nurse/Techni norah ID = [id number] for CA STRO, JORDYN [id number] 15:21:00 Test Item Value Reference Range Interpretation Comments ACTIVATED CLOTTING TIME 599 sec : 74 -137 seconds, (BEAKER) (test code = Baseli ne: TESTED AT 441) [address], [facility] 30: Plastic Surgery Nurse/Techni norah ID = [id number] for CA STRO, JORDYN [id number] 15:21:00 Test Item Value Reference Range Interpretation Comments ACTIVATED CLOTTING TIME 131 sec : 74 -137 seconds, (BEAKER) (test code = Bruce ne: TESTED AT 441) [facility] [address] [place], [address]: Plastic Surgery Nurse/Techni norah ID = [id number] for CA OSEI, JORDYN PLATELET [id number] 14:30:00 Test Item Value Reference Range Interpretation Comments PLATELET COUNT (BEAKER) (test 165 K/CU MM 150-450 code = 756) Plastic Surgery Nurse ID - [id number] GAS, [id number] 14:24:00 Test Item Value Reference Range Interpretation [...] code = 1819) 95.0 % SODIUM NA-STAT [id number] 14:24:00 Test Item Value Reference Range Interpretation Comments SODIUM (BEAKER) (test code = 381) 133 meq/L 136-145 L GLUCOSE-STAT [id number] 14:24:00 Test Item Value Reference Range Interpretation Comments GLUCOSE RANDOM (BEAKER) (test code 182 mg/dL 70-110 H = 652) HGB/HCT (H&H) - STAT [id number] 14:24:00 Test Item Value Reference Range Interpretation Comments HEMOGLOBIN (BEAKER) (test code = 8.6 g/dL 13.0-16.8 L 410) HEMATOCRIT (BEAKER) (test code = 25.0 % 40.0-50.0 L 411) CALCIUM, [id number] 14:24:00 Test Item Value Reference Range Interpretation Comments CALCIUM IONIZED (BEAKER) (test 1.00 mmol/L 1.12-1.27 L code = 698) PH, BLOOD (BEAKER) (test code = 7.31 1810) POTASSIUM-STAT [id number] 14:23:00 Test Item Value Reference Range Interpretation Comments POTASSIUM (BEAKER) (test code = 5.0 meq/L 3.6-5.5 379) POTASSIUM-STAT [id number] 13:10:00 Test Item Value Reference Range Interpretation Comments POTASSIUM (BEAKER) 6.0 meq/L 3.6-5.5 HH SPECIMEN NOT HEMOLYZED (test code = 379) BLOOD GAS, [id number] 13:09:00 Test Item Value Reference Range Interpretation [...] code = 1819) 80.0 % SODIUM NA-STAT [id number] 13:09:00 Test Item Value Reference Range Interpretation Comments SODIUM (BEAKER) (test code = 381) 133 meq/L 136-145 L GLUCOSE-STAT [id number] 13:09:00 Test Item Value Reference Range Interpretation Comments GLUCOSE RANDOM (BEAKER) (test code 180 mg/dL 70-110 H = 652) HGB/HCT (H&H) - STAT [id number] 13:09:00 Test Item Value Reference Range Interpretation Comments HEMOGLOBIN (BEAKER) (test code = 7.7 g/dL 13.0-16.8 L 410) HEMATOCRIT (BEAKER) (test code = 23.0 % 40.0-50.0 L 411) SODIUM NA-STAT [id number] 12:50:00 Test Item Value Reference Range Interpretation Comments SODIUM (BEAKER) (test code = 381) 131 meq/L 136-145 L GLUCOSE-STAT [id number] 12:50:00 Test Item Value Reference Range Interpretation Comments GLUCOSE RANDOM (BEAKER) (test code 192 mg/dL 70-110 H = 652) HGB/HCT (H&H) - STAT [id number] 12:50:00 Test Item Value Reference Range Interpretation Comments HEMOGLOBIN (BEAKER) (test code = 8.4 g/dL 13.0-16.8 L 410) HEMATOCRIT (BEAKER) (test code = 25.0 % 40.0-50.0 L 411) POTASSIUM-STAT [id number] 12:50:00 Test Item Value Reference Range Interpretation Comments POTASSIUM (BEAKER) 6.1 meq/L 3.6-5.5 HH SPECIMEN NOT HEMOLYZED (test code = 379) BLOOD GAS, [id number] 12:49:00 Test Item Value Reference Range Interpretation [...] (test code = 1819) 85.0 % POTASSIUM-STAT [id number] 12:16:00 Test Item Value Reference Range Interpretation Comments POTASSIUM (BEAKER) 6.1 meq/L 3.6-5.5 HH SPECIMEN NOT HEMOLYZED (test code = 379) BLOOD GAS, [id number] 12:12:00 Test Item Value Reference Range Interpretation [...] code = 1819) 75.0 % SODIUM NA-STAT [id number] 12:12:00 Test Item Value Reference Range Interpretation Comments SODIUM (BEAKER) (test code = 381) 129 meq/L 136-145 L GLUCOSE-STAT [id number] 12:12:00 Test Item Value Reference Range Interpretation Comments GLUCOSE RANDOM (BEAKER) (test code 213 mg/dL 70-110 H = 652) HGB/HCT (H&H) - STAT [id number] 12:12:00 Test Item Value Reference Range Interpretation Comments HEMOGLOBIN (BEAKER) (test code = 7.7 g/dL 13.0-16.8 L 410) HEMATOCRIT (BEAKER) (test code = 23.0 % 40.0-50.0 L 411) POTASSIUM-STAT [id number] 11:44:00 Test Item Value Reference Range Interpretation Comments POTASSIUM (BEAKER) (test code = 6.0 meq/L 3.6-5.5 HH 379) BLOOD GAS, [id number] 11:43:00 Test Item Value Reference Range Interpretation [...] code = 1819) 75.0 % SODIUM NA-STAT [id number] 11:43:00 Test Item Value Reference Range Interpretation Comments SODIUM (BEAKER) (test code = 381) 126 meq/L 136-145 L GLUCOSE-STAT [id number] 11:43:00 Test Item Value Reference Range Interpretation Comments GLUCOSE RANDOM (BEAKER) (test code 204 mg/dL 70-110 H = 652) HGB/HCT (H&H) - STAT [id number] 11:43:00 Test Item Value Reference Range Interpretation Comments HEMOGLOBIN (BEAKER) (test code = 8.0 g/dL 13.0-16.8 L 410) HEMATOCRIT (BEAKER) (test code = 24.0 % 40.0-50.0 L 411) BLOOD GAS, [id number] 11:10:00 Test Item Value Reference Range Interpretation [...] (BEAKER) (test code = 1819) 80.0 % CALCIUM, [id number] 09:03:00 Test Item Value Reference Range Interpretation Comments CALCIUM IONIZED (BEAKER) (test 1.11 mmol/L 1.12-1.27 L code = 698) PH, BLOOD (BEAKER) (test code = 7.42 1810) BLOOD GAS, [id number] 09:03:00 Test Item Value Reference Range Interpretation [...] code = 1819) 50.0 % SODIUM NA-STAT [id number] 09:03:00 Test Item Value Reference Range Interpretation Comments SODIUM (BEAKER) (test code = 381) 130 meq/L 136-145 L HGB/HCT (H&H) - STAT [id number] 09:03:00 Test Item Value Reference Range Interpretation Comments HEMOGLOBIN (BEAKER) (test code = 11.3 g/dL 13.0-16.8 L 410) HEMATOCRIT (BEAKER) (test code = 33.0 % 40.0-50.0 L 411) GLUCOSE-STAT [id number] 09:02:00 Test Item Value Reference Range Interpretation Comments GLUCOSE RANDOM (BEAKER) (test code 105 mg/dL 70-110 = 652) POTASSIUM-STAT [id number] 09:02:00 Test Item Value Reference Range Interpretation Comments POTASSIUM (BEAKER) (test code = 4.2 meq/L 3.6-5.5 379) [id number] 05:08:00 Test Item Value Reference Range Interpretation Comments MAGNESIUM (BEAKER) (test code = 2.0 mg/dL 1.6-2.6 627) Plastic Surgery Nurse ID - EDASIBASIC METABOLIC [id number] 05:08:00 Test Item Value Reference Range Interpretation [...] S NOT APPLICABLE FOR DIALYSIS PATIEN TS. Plastic Surgery Nurse ID - [id number] 04:57:00 Test Item Value Reference Range Interpretation Comments PARTIAL THROMBOPLASTIN TIME 65.5 seconds 22.5-36.0 H (BEAKER) (test code = 760) CBC W/PLT COUNT & AUTO [id number] 04:36:00 Test Item Value Reference Range Interpretation [...] PERCENT (BEAKER) (test code = 2801) SARS-COV2/RT-PCR ([facility])2020-07-08 19:04:00 Test Item Value Reference Range Interpretation Comments SARS-COV2/RT-PCR (test code Negative Not Detected, Negative, = 8049622) See external report for linked test SARS-COV-2 PERFORMING LAB [facility] (test code = 1962366) Negative results do not preclude SARS-CoV-2 infection [...] of the Act.Fact Sheet for Healthcare Pro viders:https://www.Zwipe/Documents/Xpert%20Xpress%20SARS%20CoV-2/Fact%20Sh eets/302-3802%27FTXT-DWQ-1%20HEALTHCARE%20PROVIDERS%20FACT%20SHEET.pdfFact Sheet for Healthcare Patients:https://www.Digitwhiz.[employer]/Documents/Xpert%20Xpress%20SARS%20CoV-2/Fact%20Sheets/302-3801%20SARS-COV -2%20PATIENT%20FACT%20SHEET.pdfPerforming Laboratory:[facility] [place], [place] [address]zurdo kaylah.[place], [place] [address]MNKPCWMT AGGREGATION: FUNCTION SCREEN 2020-07-08 10:13:00 Test Item Value Reference Range Interpretation Comments [id number] Bashir Orozco MD (BEAKER) (test code = (electronic 2622) signature) PLATELET COUNT AGG 164 K/CU MM 150-450 (BEAKER) (test code = 2656) ADP (BEAKER) (test 41 % 62-100 L This is a code = 2074) corrected result. Previous result was 47 % [...] is (BEAKER) (test code = <200,000/mm3, an 717446) abnormal result may be due to a low platelet count rather than a true platelet dysfunction. Platelet Function Screen results may be falsely low with platelet counts<75,000/cu mm.Plastic Surgery Nurse ID- [id number] 03:30:00 Test Item Value Reference Range Interpretation Comments PARTIAL THROMBOPLASTIN TIME 66.6 seconds 22.5-36.0 H (BEAKER) (test code = 760) [id number] 03:30:00 Test Item Value Reference Range Interpretation Comments MAGNESIUM (BEAKER) (test code = 2.1 mg/dL 1.6-2.6 627) Plastic Surgery Nurse ID - EDASIBASIC METABOLIC [id number] 03:30:00 Test Item Value Reference Range Interpretation [...] S NOT APPLICABLE FOR DIALYSIS PATIEN TS. Plastic Surgery Nurse ID - EDASICBC W/PLT COUNT & AUTO [id number] 03:09:00 Test Item Value Reference Range Interpretation [...] 0-1 PERCENT (BEAKER) (test code = 2801) HEMOGLOBIN [id number] 10:55:00 Test Item Value Reference Range Interpretation Comments HEMOGLOBIN A1C (BEAKER) (test code = 5.9 % 4.3-6.1 368) [id number] 05:58:00 Test Item Value Reference Range Interpretation Comments MAGNESIUM (BEAKER) 2.0 mg/dL 1.6-2.6 Specimen slightly (test code = 627) hemolyzed Plastic Surgery Nurse ID - JANETTEAYA LBASIC METABOLIC [id number] 05:58:00 Test Item Value Reference Range Interpretation Comments SODIUM (BEAKER) 134 meq/L 136-145 L (test code = 381) POTASSIUM (BEAKER) 3.9 meq/L 3.5-5.1 Specimen slightly (test code = 379) hemolyzed CHLORIDE (BEAKER) 102 meq/L 98-107 (test code = 382) CO2 (BEAKER) (test 22 meq/L 22- code = 355) BLOOD UREA NITROGEN 15 [...] S NOT APPLICABLE FOR DIALYSIS PATIEN TS. Plastic Surgery Nurse ID - KELECHI [id number] 05:53:00 Test Item Value Reference Range Interpretation Comments PARTIAL THROMBOPLASTIN TIME 74.7 seconds 22.5-36.0 H (BEAKER) (test code = 760) [id number] 22:50:00 Test Item Value Reference Range Interpretation Comments PARTIAL THROMBOPLASTIN TIME 70.0 seconds 22.5-36.0 H (BEAKER) (test code = 760) PROTHROMBIN [id number] 22:49:00 Test Item Value Reference Range Interpretation [...] INR is2.5-3.5 for patients wiht mechanical heart valves.[id number] 22:42:00 Test Item Value Reference Range Interpretation Comments MAGNESIUM (BEAKER) (test code = 2.0 mg/dL 1.6-2.6 627) Plastic Surgery Nurse ID - DBCOMPREHENSIVE METABOLIC [id number] 22:42:00 Test Item Value Reference Range Interpretation [...] S NOT APPLICABLE FOR DIALYSIS PATIEN TS. Plastic Surgery Nurse ID - DBLIPID [id number] 22:42:00 Test Item Value Reference Range Interpretation [...] Borderline 130-159 High 160-189 Very High >=190 Plastic Surgery Nurse ID - DBCBC W/PLT COUNT & AUTO [id number] 22:20:00 Test Item Value Reference Range Interpretation [...] 0-1 PERCENT (BEAKER) (test code = 2801) [id number] 05:30:00 Test Item Value Reference Range Interpretation Comments MAGNESIUM (BEAKER) (test code = 2.0 mg/dL 1.6-2.6 627) Plastic Surgery Nurse ID - YANETH MBASIC METABOLIC [id number] 05:30:00 Test Item Value Reference Range Interpretation [...] S NOT APPLICABLE FOR DIALYSIS PATIEN TS. Plastic Surgery Nurse ID - YANETH [id number] 05:04:00 Test Item Value Reference Range Interpretation [...] mechanical heart valves.CBC W/PLT COUNT & AUTO [id number] 04:50:00 Test Item Value Reference Range Interpretation [...] PERCENT (BEAKER) (test code = 2801) PLATELET AGGREGATION: FUNCTION [id number] 09:19:00 Test Item Value Reference Range Interpretation Comments [id number] Dee Campbell, (BEAKER) (test code = MD (electronic 6685) signature) PLATELET COUNT AGG 192 K/CU MM [...] may be falsely low with platelet counts<75,000/cu mm.Plastic Surgery Nurse ID- [id number] 05:51:00 Test Item Value Reference Range Interpretation Comments MAGNESIUM (BEAKER) (test code = 1.9 mg/dL 1.6-2.6 627) Plastic Surgery Nurse ID - EDASIBASIC METABOLIC [id number] 05:51:00 Test Item Value Reference Range Interpretation [...] S NOT APPLICABLE FOR DIALYSIS PATIEN TS. Plastic Surgery Nurse ID - [id number] 05:44:00 Test Item Value Reference Range Interpretation Comments PARTIAL THROMBOPLASTIN TIME 77.6 seconds 22.5-36.0 H (BEAKER) (test code = 760) CBC W/PLT COUNT & AUTO [id number] 05:37:00 Test Item Value Reference Range Interpretation [...] 0-1 PERCENT (BEAKER) (test code = 2801) [id number] 22:27:00 Test Item Value Reference Range Interpretation Comments PARTIAL THROMBOPLASTIN TIME 72.6 seconds 22.5-36.0 H (BEAKER) (test code = 760) [id number] 12:16:00 Test Item Value Reference Range Interpretation Comments ACTIVATED CLOTTING TIME 263 sec : 74 -137 seconds, (BEAKER) (test code = Baseli ne: TESTED AT 441) [facility] [address] [facility], [facility] 30: Plastic Surgery Nurse/Techni norah ID = [id number] for FILI VADLEZ [id number] 04:38:00 Test Item Value Reference Range Interpretation Comments MAGNESIUM (BEAKER) 2.0 mg/dL 1.6-2.6 Specimen slightly (test code = 627) hemolyzed Plastic Surgery Nurse ID - EDASIBASIC METABOLIC [id number] 04:38:00 Test Item Value Reference Range Interpretation [...] S NOT APPLICABLE FOR DIALYSIS PATIEN TS. Plastic Surgery Nurse ID - [id number] 04:18:00 Test Item Value Reference Range Interpretation Comments PARTIAL THROMBOPLASTIN TIME 90.4 seconds 22.5-36.0 H (BEAKER) (test code = 760) CBC W/PLT COUNT & AUTO [id number] 04:08:00 Test Item Value Reference Range Interpretation [...] 0-1 PERCENT (BEAKER) (test code = 2801) [id number] 17:48:00 Test Item Value Reference Range Interpretation Comments MAGNESIUM (BEAKER) 2.2 mg/dL 1.6-2.6 Specimen moderately (test code = 627) hemolyzed Plastic Surgery Nurse ID - [id number] 17:48:00 Test Item Value Reference Range Interpretation Comments POTASSIUM (BEAKER) 3.7 meq/L 3.5-5.1 Specimen moderately (test code = 379) hemolyzed Plastic Surgery Nurse ID - [id number] 17:39:00 Test Item Value Reference Range Interpretation Comments PARTIAL THROMBOPLASTIN TIME 51.1 seconds 22.5-36.0 H (BEAKER) (test code = 760) PET/CT, CARDIAC PERF REST AND [id number] 14:30:00Reason for exam:->CAD FINAL REPORT PROCEDURE: MYOCARDIAL PERFUSION PET IMAGING (Rest/Stress)CPT CODE: 50429 INDICATION: CAD CARDIOVASCULAR PROFILE:CAD History: CADSymptoms: Chest [...] study for arielle rison. Signed: Kinza Gomez Verified Date/Time: 07/03/2020 14:30:46 Reading Location: [address] Reading Room [id number] 12:47:00 Test Item Value Reference Range Interpretation Comments MAGNESIUM (BEAKER) 2.4 mg/dL 1.6-2.6 Specimen slightly (test code = 627) hemolyzed Plastic Surgery Nurse ID - [id number] 12:47:00 Test Item Value Reference Range Interpretation Comments POTASSIUM (BEAKER) 3.8 meq/L 3.5-5.1 Specimen slightly (test code = 379) hemolyzed Plastic Surgery Nurse ID - ROSIANGTROPONIN [id number] 10:37:00 Test Item Value Reference Range Interpretation [...] failure, acidosis, acute neurological disease, and persistent tachyarrhythmia.Plastic Surgery Nurse ID - [id number] 10:25:00 Test Item Value Reference Range Interpretation Comments PARTIAL THROMBOPLASTIN TIME 45.7 seconds 22.5-36.0 H (BEAKER) (test code = 760) SARS-COV2/RT-PCR ([facility])2020-07-03 08:54:00 Test Item Value Reference Range Interpretation Comments SARS-COV2/RT-PCR (test code Negative Not Detected, Negative, = 1162117) See external report for linked test SARS-COV-2 PERFORMING LAB [facility] (test code = 1331062) Negative results do not preclude SARS-CoV-2 infection [...] of the Act.Fact Sheet for Healthcare Pro viders:https://www.Opower.[employer]/Documents/Xpert%20Xpress%20SARS%20CoV-2/Fact%20Sh eets/302-3802%09ISNH-VIH-4%20HEALTHCARE%20PROVIDERS%20FACT%20SHEET.pdfFact Sheet for Healthcare Patients:https://www.Digitwhiz.[employer]/Documents/Xpert%20Xpress%20SARS%20CoV-2/Fact%20Sheets/3023801%20SARS-COV -2%20PATIENT%20FACT%20SHEET.pdfPerforming Laboratory:[facility], [place] [address]CLLFYCQX [id number] 04:16:00 Test Item Value Reference Range Interpretation [...] failure, acidosis, acute neurological disease, and persistent tachyarrhythmia.Plastic Surgery Nurse ID - [id number] 04:07:00 Test Item Value Reference Range Interpretation Comments MAGNESIUM (BEAKER) (test code = 1.9 mg/dL 1.6-2.6 627) Plastic Surgery Nurse ID - EDASIBASIC METABOLIC [id number] 04:07:00 Test Item Value Reference Range Interpretation [...] 697) EGFR (BEAKER) (test 76 mL/min/1.73 ESTIMA RSOA ISELA GFR IS code = 1092) sq m NOT ACCURATE CREATININE CLEARANCE IN PREDICTING GLOMERULAR FILTRATION RATE . ESTIMATED GFR I S NOT APPLICABLE FOR DIALYSIS PATIEN TS. Plastic Surgery Nurse ID - EDASILACTIC ACID, [id number] 04:00:00 Test Item Value Reference Range Interpretation Comments LACTATE BLOOD VENOUS (2) (BEAKER) 1.93 mmol/L 0.50-2.20 (test code = 2872) Plastic Surgery Nurse ID - EDASIBLOOD GAS, [id number] 03:56:00 Test Item Value Reference Range Interpretation [...] (BEAKER) (test code = 1819) 21.0 % [id number] 03:52:00 Test Item Value Reference Range Interpretation Comments PARTIAL THROMBOPLASTIN TIME 39.8 seconds 22.5-36.0 H (BEAKER) (test code = 760) CBC W/PLT COUNT & AUTO [id number] 03:42:00 Test Item Value Reference Range Interpretation [...] = 2801) RAD, CHEST, 1 VIEW, NON [id number] 23:05:00Reason for exam:- >dyspneaShould this be performed [...] in the left lung base. Signed: Joyce Raglandort Verified Date/Time: 07/02/2020 23:05:36 LACTIC ACID, [id number] 22:59:00 Test Item Value Reference Range Interpretation Comments LACTATE BLOOD VENOUS 3.11 mmol/L 0.50-2.20 H Specime n slightly (2) (BEAKER) (test hemolyzed code = 2872) Plastic Surgery Nurse ID - PIAYA [id number] 22:39:00 Test Item Value Reference Range Interpretation Comments MAGNESIUM (BEAKER) (test code = 1.7 mg/dL 1.6-2.6 627) Plastic Surgery Nurse ID - DBHEMOGLOBIN [id number] 22:14:00 Test Item Value Reference Range Interpretation Comments HEMOGLOBIN A1C (BEAKER) (test code = 5.8 % 4.3-6.1 368) LACTIC ACID, [id number] 22:00:00 Test Item Value Reference Range Interpretation Comments LACTATE BLOOD VENOUS 3.07 mmol/L 0.50-2.20 H Specime n slightly (2) (BEAKER) (test hemolyzed code = 2872) Plastic Surgery Nurse ID - DBLIPID [id number] 21:57:00 Test Item Value Reference Range Interpretation [...] Borderline 130-159 High 160-189 Very High >=190 Plastic Surgery Nurse ID - ELICEOHEPATIC FUNCTION [id number] 21:57:00 Test Item Value Reference Range Interpretation [...] (test code = 40 U/L 6-55 347) Plastic Surgery Nurse ID - JAEL COperator ID - [id number] 21:49:00 Test Item Value Reference Range Interpretation Comments THYROID STIMULATING HORMONE 1.364 uIU/mL 0.350-4.940 (BEAKER) (test code = 772) Plastic Surgery Nurse ID - JAEL CTROPONIN [id number] 21:41:00 Test Item Value Reference Range Interpretation [...] failure, acidosis, acute neurological disease, and persistent tachyarrhythmia.Plastic Surgery Nurse ID - JAEL CB-TYPE NATRIURETIC FACTOR (BNP)2020-07-02 21:36:00 Test Item Value Reference Range Interpretation Comments B-TYPE NATRIURETIC PEPTIDE (BEAKER) 68 pg/mL 0-100 (test code = 700) Plastic Surgery Nurse ID - JAEL CBASIC METABOLIC [id number] 21:26:00 Test Item Value Reference Range Interpretation [...] S NOT APPLICABLE FOR DIALYSIS PATIEN TS. Plastic Surgery Nurse ID - OCT [id number] 21:25:00 Test Item Value Reference Range Interpretation [...] for patients wiht mechanical heart valves.LACTIC ACID, [id number] 21:24:00 Test Item Value Reference Range Interpretation Comments LACTATE BLOOD VENOUS (2) (BEAKER) 3.93 mmol/L 0.50-2.20 H (test code = 2872) Plastic Surgery Nurse ID - JAEL CPROTHROMBIN TIME/[id number] 21:22:00 Test Item Value Reference Range Interpretation [...] mechanical heart valves.CBC W/PLT COUNT & AUTO [id number] 21:10:00 Test Item Value Reference Range Interpretation [...] PERCENT (BEAKER) (test code = 2801) TISSUE [id number] 13:46:00Surgical Pathology Report Case: [id number] Authorizing Provider: Ernst Goyal Collected: 10/12/2019 1440 Lis Cuellar MD [facility] Received: 10/13/2019 0810 Perioperative Services Pathologist: Sabi John MD Specimen: Condyle,Right Knee CONDYLES, RIGHT KNEE, ARTHROPLASTY: - DEGENERATIVE CHANGES CONSISTENT WITH OSTEOARTHRITIS - SYNOVIUM WITH REACTIVE CHANGES Signing Pathologist Direct Phone Line: [phone] signed by Sabi John MD on 10/19/2019 at 1:46 [id number], [id number] diagnosis: osteoarthritis or right knee, unspecified osteoarthritis [...] measuring up to 0.2 cm thic k. 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 PA/pl Performed.POCT-GLUCOSE [id number] 07:23:00 Test Item Value Reference Range Interpretation Comments POC-GLUCOSE METER 145 mg/dL 70-110 H : TESTED A T [facility] 7200 (BEAKER) (test code CAMBRIDG E BLDG A, = 1538) [place] [address] 0: Plastic Surgery Nurse/Techni norah ID = [id number] for Jennifer Woodruff BASIC METABOLIC [id number] 06:29:00 Test Item Value Reference Range Interpretation [...] APPLICABLE FOR DIALYSIS PATIEN TS. HEMOGLOBIN AND [id number] 06:16:00 Test Item Value Reference Range Interpretation Comments HEMOGLOBIN (BEAKER) (test code = 12.1 GM/DL 13.7-17.5 L 410) HEMATOCRIT (BEAKER) (test code = 36.7 % 40.1-51.0 L 411) POCT-GLUCOSE [id number] 21:12:00 Test Item Value Reference Range Interpretation Comments POC-GLUCOSE METER 195 mg/dL 70-110 H : TESTED A T [facility] 7200 (BEAKER) (test code CAMBRIDG E BLDG A, = 1538) [place] [address] 0: Plastic Surgery Nurse/Techni norah ID = [id number] for INESSA SWAIN RAD, KNEE, 1 OR 2 VIEWS, [id number] 16:44:00Reason for exam:->s/p r tkaShould this be performed at the bedside?->YesFINAL REPORT COMPARISON: None. FINDINGS: 2 views of the right knee are submitted. Patient is presumably status post recent right knee replacement. There is anatomic alignment of the surgical prosthesis. There is postoperative gas in the surrounding soft tissues . Signed: Satya Huff MDReport Verified Date/Time: 10/12/2019 16:44:57 Reading Location: [facility] Radiology Reading Room XR KNEE RIGHT AP, LAT, BOTH [id number] 19:06:09For result, please reference physician's note on the corresponding date.[facility]
[2022-01-03 23:45] LABS: Absolute Lymphocytes (CBC) 1.1 K/uL (0.7-4.9); Lymphocytes % 15.7 % (15.3-44.8); MPV 9.4 fL (7.6-11.3); RBC Red Blood Cell Count 4.78 M/uL (4.33-5.43)
[2022-01-03 23:48] LABS: Protime INR 0.97
[2022-01-04 00:04] LABS: Albumin 3.7 g/dL (3.4-5.0); Bilirubin Direct 0.1 mg/dL (0-0.2); Bilirubin Total 0.4 mg/dL (0.2-1.0); Magnesium 2.5 mg/dL (1.8-2.4); Protein, Total 7.2 g/dL (6.4-8.2); Troponin High Sensitivity 13.8 pg/mL (<58.9)
[2022-01-04 00:18] LABS: SARS-COV-2 RT PCR NEGATIVE (NEGATIVE)
[2022-01-04] MEDS ORDERED: ACETAMINOPHEN 500 MG TAB ONE (00:19)
[2022-01-04] MEDS ORDERED: NA CHLORIDE 0.9% 1,000 ML ONE (00:44)
[2022-01-04 01:03] LABS: Thyroid Stimulating Hormone 1.74 uIU/mL (0.360-3.740)
--- NOTE | 2022-01-04 01:23 | EDPHYS ---
Physician Documentation [facility] Name: Sergey Emanuel Jr Age: 61 yrs Sex: Male : 1960 Arrival Date: 01/03/2022 Time: 22:49 Bed 13 Private MD: ED Physician Van Pena HPI: 01/03 23:40 This 61 yrs old Male presents to ER via EMS with complaints of Near Syncope. mh7 23:40 The patient has experienced near-syncope, almost passed out, felt dizzy, felt faint, mh7 felt like heart was pounding. Onset: The symptoms/episode began/occurred today, at 13:00. Duration: The patient has had multiple episodes, that last an unknown period of time. Context: the episode(s) was witnessed, by no one, occurred at home, occurred while the patient was standing, Just prior to the episode the patient experienced dizziness, lightheadedness, palpitations. Associated injury: Head/face: forehead, abrasion, contusion, swelling, tenderness. Associated signs and symptoms: Pertinent negatives: abdominal pain, agitation, blurred vision, chest pain, combativeness, confusion, diaphoresis, diarrhea, headache, nausea, numbness, seizure, shortness of breath, tingling, vertigo, vomiting, weakness. Current symptoms: dizziness. Historical: - Allergies: 23:18 Brilinta; nelly - PMHx: 23:18 CHF; IRON DEFICIENCY ANEMIA; Myocardial infarction; x 4; nelly - PSHx: 23:18 triple bypass; nelly - Immunization history:: Adult Immunizations not immunized. - Social history:: Smoking status: Patient denies any tobacco usage or history of. ROS: 23:40 Constitutional: Negative for fever, chills, and weight loss, Eyes: Negative for injury, mh7 pain, redness, and discharge, ENT: Negative for injury, pain, and discharge, Neck: Negative for injury, pain, and swelling, Respiratory: Negative for shortness of breath, cough, wheezing, and pleuritic chest pain, Abdomen/GI: Negative for abdominal pain, nausea, vomiting, diarrhea, and constipation, Back: Negative for injury and pain, : Negative for injury, bleeding, discharge, and swelling, MS/Extremity: Negative for injury and deformity, Neuro: Negative for headache, weakness, numbness, tingling, and seizure, Psych: Negative for depression, anxiety, suicide ideation, homicidal ideation, and hallucinations, Allergy/Immunology: Negative for hives, rash, and allergies, Endocrine: Negative for neck swelling, polydipsia, polyuria, polyphagia, and marked weight changes, Hematologic/Lymphatic: Negative for swollen nodes, abnormal bleeding, and unusual bruising. Exam: 23:40 Constitutional: This is a well developed, well nourished patient who is awake, alert, mh7 and in no acute distress. 23:40 Eyes: Pupils equal round and reactive to light, extra-ocular motions intact. Lids and lashes normal. Conjunctiva and sclera are non-icteric and not injected. Cornea within normal limits. Periorbital areas with no swelling, redness, or edema. Neck: Trachea midline, no thyromegaly or masses palpated, and no cervical lymphadenopathy. Supple, full range of motion without nuchal rigidity, or vertebral point tenderness. No Meningismus. Chest/axilla: Normal chest wall appearance and motion. Nontender with no deformity. No lesions are appreciated. Cardiovascular: Regular rate and rhythm with a normal S1 and S2. No gallops, murmurs, or rubs. Normal PMI, no JVD. No pulse deficits. Respiratory: Lungs have equal breath sounds bilaterally, clear to auscultation and percussion. No rales, rhonchi or wheezes noted. No increased work of breathing, no retractions or nasal flaring. Abdomen/GI: Soft, non-tender, with normal bowel sounds. No distension or tympany. No guarding or rebound. No evidence of tenderness throughout. Back: No spinal tenderness. No costovertebral tenderness. Full range of motion. Skin: Warm, dry with normal turgor. Normal color with no rashes, no lesions, and no evidence of cellulitis. MS/ Extremity: Pulses equal, no cyanosis. Neurovascular intact. Full, normal range of motion. 23:40 Psych: Awake, alert, with orientation to person, place and time. Behavior, mood, and affect are within normal limits. 23:40 Head/face: Noted is abrasion(s), that are mild, of the forehead, contusion, that is superficial, of the forehead. 23:40 Neuro: Orientation: is normal, Mentation: is normal, Memory: is normal, Cranial nerves: grossly normal, Cerebellar function: is grossly normal, Motor: is normal, Sensation: is normal, Gait: not tested. seizure activity, is not displayed by the patient, Abnormal movements: there are no abnormal movements. 23:40 ECG was reviewed by the Attending Physician. [facility] Vital Signs: 23:43 BP 137 / 78; Pulse 56; Resp 16; Temp 98.5; Pulse Ox 98% on R/A; Pain 0/10; nelly 04/02 00:11 BP 147 / 96 Supine; Pulse 55; nelly 00:12 BP 133 / 83 Sitting; Pulse 59; nelly 00:12 BP 96 / 67 Standing; Pulse 60; nelly 00:45 BP 160 / 85; Pulse 60; Resp 18; Pulse Ox 95% on R/A; Pain 0/10; nelly 01:15 BP 156 / 94; Pulse 53; Resp 16; Pulse Ox 95% on R/A; Pain 0/10; nelly 01:40 BP 149 / 82; Pulse 56; Resp 18; Pulse Ox 96% on R/A; Pain 0/10; nelly 02:24 BP 155 / 81; Pulse 58; Resp 18; Pulse Ox 96% on R/A; Pain 0/10; nelly 03:18 BP 133 / 65; Pulse 62; Resp 16; Pulse Ox 96% on R/A; Pain 0/10; nelly 04:09 BP 166 / 70; Pulse 68; Resp 18; Pulse Ox 98% on R/A; nelly 05:59 BP 143 / 76; Pulse 53; Resp 16; Pulse Ox 96% on R/A; nelly MDM: 01:20 Differential Diagnosis: cardiac arrhythmia, cerebrovascular accident, drug effect, [facility] idiopathic syncope, seizure, vasovagal episode. Data reviewed: vital signs, nurses notes, old medical records, lab test result(s), cardiac enzymes, CBC, electrolytes, EKG, radiologic studies, CT scan, plain films. Data interpreted: Pulse oximetry: on room air is 97 %. Interpretation: normal. Counseling: I had a detailed discussion with the patient and/or guardian regarding: the historical points, exam findings, and any diagnostic results supporting the discharge/admit diagnosis, the presence of at least one elevated blood pressure reading (>120/80) during this emergency department visit, lab results, radiology results, the need for further work-up and treatment in the hospital. Response to treatment: the patient's symptoms have mildly improved after treatment. 01:23 Patient medically screened. [facility] 01/03 23:25 Order name: Basic Metabolic Panel; Complete Time: 00:09 [facility] 01/03 23:25 Order name: CBC with Diff; Complete Time: 00:34 [facility] 01/03 23:25 Order name: LFT's; Complete Time: 00:34 [facility] 01/03 23:25 Order name: Magnesium; Complete Time: 00:34 [facility] 01/03 23:25 Order name: NT PRO-BNP; Complete Time: 00:34 [facility] 01/03 23:25 Order name: PT-INR; Complete Time: 00:34 [facility] 01/03 23:25 Order name: Troponin HS; Complete Time: 00:34 [facility] 01/03 23:26 Order name: COVID-19/FLU A+B (Document "Date of Onset" if Symptomatic); Complete Time: [facility] 00:34 01/04 00:34 Order name: TSH; Complete Time: 01:04 [facility] 01/04 00:35 Order name: CPK; Complete Time: 01:04 [facility] 01/04 05:32 Order name: Basic Metabolic Panel [facility] 01/04 05:32 Order name: Troponin High Sensitivity [facility] 01/04 05:32 Order name: T4 Free [facility] 01/04 05:32 Order name: Thyroid Stimulating Hormone [facility] 01/03 23:25 Order name: XRAY Chest (1 view) [facility] 01/03 23:25 Order name: EKG; Complete Time: 23:26 [facility] 01/03 23:25 Order name: Cardiac monitoring; Complete Time: 00:04 [facility] 01/03 23:25 Order name: EKG - Nurse/Tech; Complete Time: 00:04 [facility] 01/03 23:25 Order name: IV Saline Lock; Complete Time: 00:04 [facility] 01/03 23:25 Order name: Labs collected and sent; Complete Time: 00:04 [facility] 01/03 23:25 Order name: O2 Per Protocol; Complete Time: 00:04 [facility] 01/03 23:25 Order name: O2 Sat Monitoring; Complete Time: 00:04 [facility] 01/03 23:25 Order name: Urine Dipstick-Ancillary (obtain specimen) [facility] 01/03 23:25 Order name: CT Head Brain wo Cont mh7 01/03 23:25 Order name: Orthostatics; Complete Time: 00:26 mh7 EC/01 23:40 Rate is 59 beats/min. Rhythm is regular, Sinus bradycardia with Right bundle branch mh7 block. Left axis deviation noted. QRS is negative in leads V1, V2. ME interval is normal. QRS interval is normal. QT interval is normal. No Q waves. T waves are Normal. No ST changes noted. Clinical impression: Abnormal EKG without significant change and No evidence of ischemia. Administered Medications: 01/04 00:27 Drug: Tylenol 1000 mg Route: PO; nelly 00:43 Drug: NS 0.9% 1000 ml Route: IV; Rate: 1000 ml; Site: right hand; nelly Disposition Summary: 01/04/22 01:23 Hospitalization Ordered Hospitalization Status: Inpatient Admission [facility] Provider: Jason Alvarez Joe Condition: Stable [facility] Problem: new [facility] Symptoms: have improved [facility] Bed/Room Type: Standard [facility] Location: Telemetry/MedSurg (Inpatient)(01/04/22 08:32) Room Assignment: [facility](01/04/22 08:32) Diagnosis - Syncope Near [facility] - Dizziness and giddiness [facility] - Orthostatic hypotension [facility] Forms: - Medication Reconciliation Form [facility] - SBAR form [facility] Signatures: Dispatcher [employer] EDDarrell Ash, SHOBHA-C SHIFT COMMANDER-Cla1 Neeru Zayas RN RN cg Botello, Elizabeth eb Holmes, Maurice, MD MD [facility] Nina Newsome RN RN bo Corrections: (The following items were deleted from the chart) 03:26 01:23 Telemetry/MedSurg (Inpatient) [facility] cg 03:26 01:23 7 cg 08:32 03:26 [facility] ER HOLD cg eb 08:32 03:26 ERHOLD- cg eb
--- NOTE | 2022-01-04 01:23 | ER ---
Nurse's Notes [facility] Name: Sergey Emanuel Jr Age: 61 yrs Sex: Male : 1960 Arrival Date: 01/03/2022 Time: 22:49 Bed 13 Private MD: Diagnosis: Syncope Near;Dizziness and giddiness;Orthostatic hypotension Presentation: 01/03 22:56 Chief complaint: Patient states: "I felt like I was gonna pass out all day". nelly Coronavirus screen: Vaccine status: Patient reports being unvaccinated. Ebola Screen: Patient negative for fever greater than or equal to 101.5 degrees Fahrenheit, and additional compatible Ebola Virus Disease symptoms Patient denies exposure to infectious person. Patient denies travel to an Ebola-affected area in the 21 days before illness onset. Initial Sepsis Screen: Does the patient meet any 2 criteria? No. Patient's initial sepsis screen is negative. Does the patient have a suspected source of infection? No. Patient's initial sepsis screen is negative. Risk Assessment: Do you want to hurt yourself or someone else? Patient reports no desire to harm self or others. 22:56 Method Of Arrival: EMS nelly 22:56 Acuity: MARYA 3 nelly 01/04 00:47 Onset of symptoms was January 03, 2022. nelly Triage Assessment: 01/03 23:18 General: Appears in no apparent distress. Pain: Denies pain. nelly 01/04 00:47 General: Behavior is calm, cooperative. nlely Historical: - Allergies: 01/03 23:18 Brilinta; nelly - PMHx: 23:18 CHF; IRON DEFICIENCY ANEMIA; Myocardial infarction; x 4; nelly - PSHx: 23:18 triple bypass; nelly - Immunization history:: Adult Immunizations not immunized. - Social history:: Smoking status: Patient denies any tobacco usage or history of. Screenin:19 Abuse screen: Denies threats or abuse. Denies injuries from another. Nutritional nelly screening: No deficits noted. Tuberculosis screening: No symptoms or risk factors identified. Fall Risk None identified. Assessment: 23:19 Reassessment: Patient appears in no apparent distress at this time. No changes from nelly previously documented assessment. Pt reports,"I think I'm dehydrated". 01/04 00:13 Reassessment: I shared the findings of the orthostatics with the MD. nelly 01:15 Reassessment: Pt sleeping with clear, even breaths. nelly 01:40 Reassessment: The pt asked for a sandwich as he was "starving". The pt is eating nelly ravenously and we are awaiting a bed upstairs, ideally. He continues to be in no distress. 04:12 Reassessment: Patient appears in no apparent distress at this time. No changes from nelly previously documented assessment. Unbelievably, the pt ate 2 sandwiches and now is eating a 3rd. He has consumed 2 jellos and asked for a few more as well. This pt needs assist with opening things, etc. He seems much older than his years. Awaiting a bed assignment. 05:55 Reassessment: We brought a "hospital bed", so as to make the pt more comfortable and nelly had him sit in the chair, while we changed them out. 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 The pt also asked when breakfast is served and I told him it would be later. He also asked that wound care be called for his stage 2, to his buttocks, although the pt is not bed bound, and lives at home. Vital Signs: 01/03 23:43 BP 137 / 78; Pulse 56; Resp 16; Temp 98.5; Pulse Ox 98% on R/A; Pain 0/10; nelly 01/04 00:11 BP 147 / 96 Supine; Pulse 55; nelly 00:12 BP 133 / 83 Sitting; Pulse 59; nelly 00:12 BP 96 / 67 Standing; Pulse 60; nelly 00:45 BP 160 / 85; Pulse 60; Resp 18; Pulse Ox 95% on R/A; Pain 0/10; nelly 01:15 BP 156 / 94; Pulse 53; Resp 16; Pulse Ox 95% on R/A; Pain 0/10; nelly 01:40 BP 149 / 82; Pulse 56; Resp 18; Pulse Ox 96% on R/A; Pain 0/10; nelly 02:24 BP 155 / 81; Pulse 58; Resp 18; Pulse Ox 96% on R/A; Pain 0/10; nelly 03:18 BP 133 / 65; Pulse 62; Resp 16; Pulse Ox 96% on R/A; Pain 0/10; nelly 04:09 BP 166 / 70; Pulse 68; Resp 18; Pulse Ox 98% on R/A; nelly 05:59 BP 143 / 76; Pulse 53; Resp 16; Pulse Ox 96% on R/A; nelly ED Course: 01/03 22:49 Patient arrived in ED. tw5 22:50 Nina Newsome, RN is Primary Nurse. nelly 22:58 Triage completed. nelly 22:59 Van Pena MD is Attending Physician. 7 23:19 No provider procedures requiring assistance completed. Inserted saline lock: 20 gauge nelly in right hand, using aseptic technique. Blood collected. 23:20 Patient has correct armband on for positive identification. Bed in low position. Call nelly light in reach. Side rails up X 1. 23:58 XRAY Chest (1 view) In Process Unspecified. EDMS 04/02 00:04 COVID-19/FLU A+B (Document "Date of Onset" if Symptomatic) Sent. nelly 00:04 Basic Metabolic Panel Sent. nelly 00:04 LFT's Sent. nelly 00:04 Magnesium Sent. nelly 00:10 CT Head Brain wo Cont In Process Unspecified. EDMS 00:45 TSH Sent. nelly 00:45 CPK Sent. nelly 00:48 Arm band placed on. EKG completed in triage. Results shown to MD. nelly 01:16 Patient admitted, IV remains in place. nelly 01:22 Jason Alvarez MD is Hospitalizing Provider. 7 Administered Medications: 00:27 Drug: Tylenol 1000 mg Route: PO; nelly 00:43 Drug: NS 0.9% 1000 ml Route: IV; Rate: 1000 ml; Site: right hand; nelly Outcome: 00:47 Condition: stable nelly 01:16 Admitted to nelly 01:23 Decision to Hospitalize by Provider. mh7 07:00 Admitted to ER Hold. Please see [facility] for further documentation. aa5 09:58 Patient left the ED. eb Signatures: Dispatcher [employer] EDNH Fallon Toussaint, ELIAN RN edna5 Dee Covarrubias Maurice, MD MD 7 Carol William tw5 Nina Newsome RN RN nelly
--- NOTE | 2022-01-04 01:44 | P.HP ---
Certification for Inpatient Patient admitted to: Observation With expected LOS: <2 Midnights Patient will require the following post-hospital care: None Practitioner: I am a practitioner with admitting privileges, knowledge of patient current condition, hospital course, and medical plan of care. Services: Services provided to patient in accordance with Admission requirements found in Title 42 Section 412.3 of the Code of Federal Regulations Patient History Date of Service: 01/04/22 Reason for admission: Syncope History of Present Illness: 61-year-old male with history of CHF, CAD status post CABG, hypertension, hyperlipidemia presented to the emergency department for syncope. Patient reports feeling weak and dizzy throughout the day today had a syncopal episode while trying to feed his dogs, he bent over and fell forward hitting his forehead hematoma noted to forehead CT without contrast negative for acute findings. His labs were significant for mild ROZ with creatinine 1.52 GFR 47 initial troponin negative EKG without acute changes chest x-ray unremarkable his orthostatic vital signs were positive in the emergency department he was given IV fluids given significant history of CAD/CABG, CHF ED provider wishes to admit under observation. Allergies ticagrelor [From Brilinta] Adverse Reaction (Verified 07/08/21 21:01) severe spasm Home Medications: Atorvastatin Calcium [Lipitor] 40 mg PO BEDTIME 05/28/20 Baclofen 20 mg PO TID 05/28/20 Gabapentin 1,200 mg PO TID 05/28/20 Pantoprazole [Protonix Tab*] 40 mg PO DAILY 05/28/20 Clopidogrel Bisulfate [Plavix*] 75 mg PO DAILY 30 Days #30 tablet 05/29/20 Amitriptyline [Elavil*] 25 mg PO BID 07/08/21 Aspirin [Aspirin EC 81 MG] 81 mg PO DAILY 07/08/21 Carvedilol [Coreg] 12.5 mg PO BID 07/08/21 Furosemide 10 mg PO DAILY 07/08/21 Tamsulosin [Flomax*] 0.4 mg PO BEDTIME 07/08/21 Nitroglycerin [Nitrostat*] 0.4 mg SL UD PRN #20 tab 07/09/21 - Past Medical/Surgical History Diabetic: No -: CAD -: Hypertension -: Hyperlipidemia -: Neuropathy -: Back Fusion 2009 -: Right Knee Surgery (October 12, 2019) -: CABG, multiple stents -: femur repair Psychosocial/ Personal History: Lives at home with family - Family History Father -: Cancer Notes: - kidney, lungs Mother -: Cancer Notes: - breast - Social History Smoking Status: Never smoker Alcohol use: No CD- Drugs: No Caffeine use: Yes Place of Residence: Home Review of Systems 10-point ROS is otherwise unremarkable General: Weakness Cardiovascular: Light Headedness, As per HPI Physical Examination - Physical Exam General: Alert, In no apparent distress, Oriented x3 HEENT: Atraumatic, PERRLA, Mucous membr. moist/pink, EOMI, Sclerae nonicteric Neck: Supple, 2+ carotid pulse no bruit, No LAD, Without JVD or thyroid abnormality Respiratory: Clear to auscultation bilaterally, Normal air movement Cardiovascular: Regular rate/rhythm, Normal S1 S2 Gastrointestinal: Normal bowel sounds, No tenderness Musculoskeletal: No tenderness Integumentary: No rashes Neurological: Normal gait, Normal speech, Normal strength at 5/5 x4 extr, Normal tone, Normal affect Lymphatics: No axilla or inguinal lymphadenopathy - Studies Laboratory Data (last 24 hrs) 01/03/22 23:35: PT 10.7, INR 0.97 01/03/22 23:35: WBC 7.2, Hgb 15.1, Hct 45.0, Plt Count 256 01/03/22 23:35: Sodium 138, Potassium 4.0, BUN 25 H, Creatinine 1.52 H, Glucose 103, Magnesium 2.5 H, Total Bilirubin 0.4, AST 21, ALT 25, Alkaline Phosphatase 92 Assessment and Plan - Plan Assessment: Syncope, orthostatic hypotension Acute kidney injury kidney injury: Chronic CHFunknown EF CAD status post CABG/balloon angioplasty Hypertension Hyperlipidemia BPH Plan: Syncope, orthostatic hypotension: Patient given 1 L normal saline bolus in the ER continue gentle hydration throughout the evening, recheck orthostatic vital signs in the morning, physical therapy consult in place. We will also trend troponin, monitor on telemetry throughout hospitalization. Acute kidney injury: Continue gentle hydration, repeat chemistry the morning. Chronic CHFunknown EF: Patient appears to be dry at this time will continue gentle hydration monitor on telemetry watch for volume overload. Continue other home medications. CAD status post CABG/balloon angioplasty: obtain and continue home meds Hypertension: obtain and continue home meds Hyperlipidemia: obtain and continue home meds BPH: obtain and continue home meds DVT PPX: Lovenox Code status: Full Discharge Plan: Home - Advance Directives Does patient have a Living Will: Yes Does patient have a Durable POA for Healthcare: No - Code Status/Comfort Care Code Status Assessed: Yes (Code) Critical Care: No Time Spent Managing Pts Care (In Minutes): 55
[2022-01-04] MEDS ORDERED: ONDANSETRON 4 MG/2 ML VIAL IV PRN (03:53)
[2022-01-04 05:32] LABS: Potassium 3.7 mmol/L (3.5-5.1); Thyroid Stimulating Hormone 1.26 uIU/mL (0.360-3.740); Troponin High Sensitivity 13.8 pg/mL (<58.9)
[2022-01-04] MEDS: carvediloL 12.5 MG TAB PO SCH ×2 (06:00→17:14)
[2022-01-04] MEDS ORDERED: carvediloL 6.25 MG TAB ONE (06:10)
[2022-01-04] MEDS ORDERED: POTASSIUM CL SA 10 MEQ TAB PO ONE (08:13)
[2022-01-04] MEDS ORDERED: CLOPIDOGREL 75 MG TABLET ONE (08:14)
[2022-01-04 09:00] VITALS: BMI 32.4
[2022-01-04] MEDS: CLOPIDOGREL 75 MG TABLET PO SCH (09:00)
[2022-01-04] MEDS: POTASSIUM CL SA 10 MEQ TAB PO ONE ×2 (09:19→10:00)
[2022-01-04] MEDS: ENOXAPARIN 40 MG/0.4 ML SQ SCH (10:00)
[2022-01-04] MEDS: ACETAMINOPHEN 325 MG TABLET PO PRN (10:46)
[2022-01-04] MEDS: NA CHLORIDE 0.9% 1,000 ML IV SCH ×3 (10:46→21:46)
[2022-01-04] MEDS ORDERED: INFLUENZA VACCINE (for 6+ mo) 0.5 ML DOSE IMVAC ONE (12:00)
--- NOTE | 2022-01-04 12:12 | RAD REPORT ---
EXAM DESCRIPTION: CT - Head Brain Wo Cont - 01/04/2022 7:01 am CLINICAL HISTORY: 61 years, Male, Dizziness;Syncope COMPARISON: None . FINDINGS: Multiple transaxial tomograms of the brain were obtained from the base of the skull to the vertex without contrast. 2-D multiplanar reformats and the coronal and sagittal plane were performed and reviewed. This exam was performed according to our departmental dose-optimization protocol, which includes auto mated exposure control, adjustment of the mA and/or kV according to patient size and/or use of iterat murphy reconstruction technique. Brain parenchyma demonstrate mild prominence of the sulci and gyri are corresponding to mild cerebral brain atrophy. There is no midline shift and/or mass effect. There is no evidence for acute intracra nial hemorrhage. Lateral ventricles and cisterns displace normal appearance. No intra or extra ax ial fluid collections were seen. The calvarium is intact with no evidence for fracture. The visualize d portions of the paranasal sinuses and orbits demonstrate to be clear. IMPRESSION: MILD BRAIN ATROPHY. NO ACUTE INTRACRANIAL HEMORRHAGE. Electronically signed by: Db Charles MD 01/04/2022 1:17 AM CDT Due to temporary technical issues with the PACS/Fluency reporting system, reports are being signed by the in house radiologists without review as a courtesy to insure prompt reporting. The interpreting radiologist is fully responsible for the content of the report.
--- NOTE | 2022-01-04 12:27 | RAD REPORT ---
EXAM DESCRIPTION: RAD - Chest Single View - 01/03/2022 11:57 pm CLINICAL HISTORY: Near syncope COMPARISON: None. TECHNIQUE: XR CHEST 1 VIEW 01/03/2022 11:25 PM CDT FINDINGS: The heart is enlarged following sternotomy. Lungs are clear without consolidation, atelect asis, mass or edema. There is no pleural effusion. There is no pneumothorax. There are no acute osseo us findings. IMPRESSION: Clear lungs. Electronically signed by: Brijesh Bianchi MD 01/04/2022 12:10 AM CDT Due to temporary technical issues with the PACS/Fluency reporting system, reports are being signed by the in house radiologists without review as a courtesy to insure prompt reporting. The interpreting radiologist is fully responsible for the content of the report.
[2022-01-04] MEDS: HYDROCODONE/APAP 10/325 TAB PO PRN (21:14)
[2022-01-04] MEDS ORDERED: GABAPENTIN 300 MG CAP PO ONE (23:00)
[2022-01-05] MEDS: HYDRALAZINE HCL 20 MG/ML VIAL IV PRN ×2 (00:12→08:22)
[2022-01-05] MEDS: HYDROCODONE/APAP 10/325 TAB PO PRN ×4 (03:08→21:20)
[2022-01-05] MEDS: carvediloL 12.5 MG TAB PO SCH ×2 (04:59→21:00)
[2022-01-05] MEDS: ACETAMINOPHEN 325 MG TABLET PO PRN (06:05)
[2022-01-05 06:23] LABS: Potassium 3.9 mmol/L (3.5-5.1)
[2022-01-05] MEDS: ENOXAPARIN 40 MG/0.4 ML SQ SCH (08:21)
[2022-01-05] MEDS: CLOPIDOGREL 75 MG TABLET PO SCH (08:21)
[2022-01-05] MEDS: NA CHLORIDE 0.9% 1,000 ML IV SCH ×2 (08:23→19:53)
[2022-01-05] MEDS ORDERED: POTASSIUM 25 MEQ EFFERV TAB PO ONE (09:00)
[2022-01-05] MEDS ORDERED: GABAPENTIN 300 MG CAP PO SCH (09:00)
[2022-01-05] MEDS ORDERED: NITROGLYCERIN 0.4 MG/TAB SL PRN (11:21)
[2022-01-05 11:28] LABS: Urine Appearance Clear (Clear); Urine Bilirubin Negative (Negative); Urine Blood Negative (Negative); Urine Color Yellow (Yellow); Urine Glucose Negative (Negative); Urine Microscopic Reflex NO UMIC; Urine Protein Negative (Negative); Urine Urobilinogen 0.2 mg/dL (0.2-1.0)
[2022-01-05] MEDS ORDERED: SODIUM CHLORIDE 0.9% 10ML INJ IV PRN (12:21)
--- NOTE | 2022-01-05 12:23 | P.PN ---
Subjective Date of Service: 01/05/22 Chief Complaint: Syncope Patient is 61 years of age admitted with a syncopal spell currently he was having some diarrhea at home is now complaining of black tarry stools blood pressure is a little elevated Very anxious renal function is now normal Review of Systems General: Weakness Neurological: Other (Slight dizziness) Physical Examination - Vital Signs Temperature: 97.5 F Blood Pressure: 209/88 Pulse: 57 Respirations: 20 Pulse Ox (%): 99 - Physical Exam General: Alert, In no apparent distress, Oriented x3, Mild distress Respiratory: Clear to auscultation bilaterally Cardiovascular: No edema, Regular rate/rhythm, Normal S1 S2 Gastrointestinal: Normal bowel sounds, Soft and benign Musculoskeletal: No clubbing, No contractures Integumentary: No rashes, No breakdown Assessment And Plan - Current Problems (Diagnosis) (1) GI bleed Current Visit: Yes Status: Acute Qualifiers: GI bleed type/associated pathology: unspecified gastrointestinal hemorrhage type Qualified Code(s): K92.2 - Gastrointestinal hemorrhage, unspecified (2) Hypertension Current Visit: Yes Status: Acute - Plan Patient come is was admitted with syncopal attack mild orthostatic hypotension repeat CBC complaining of black tarry stools most likely GI bleed also has some diarrhea chemistries are normal renal function is now normal no other pertinent focal findings GI consult continue to monitor hold aspirin and Plavix blood pressure is also elevated
[2022-01-05 12:49] LABS: Hematocrit 40.2 % (39.6-49.0); MPV 9.4 fL (7.6-11.3); RBC Red Blood Cell Count 4.24 M/uL (4.33-5.43)
[2022-01-05] MEDS: AMLODIPINE 5 MG TAB PO SCH (13:10)
[2022-01-05] MEDS: BACLOFEN 10 MG TAB PO SCH ×2 (13:10→21:23)
[2022-01-05] MEDS: GABAPENTIN 400 MG CAP PO SCH ×2 (13:10→21:23)
[2022-01-05] MEDS ORDERED: HOME MED 1 EA UNK (Baclofen [Baclofen] 20 MG Tablet) PO SCH (14:00)
[2022-01-05] MEDS: LORAZEPAM 0.5 MG TABLET PO PRN ×2 (14:17→22:20)
[2022-01-05] MEDS: PANTOPRAZOLE 40 MG INJ IVP SCH ×2 (14:18→21:21)
[2022-01-05] MEDS: TAMSULOSIN 0.4 MG SR CAP PO SCH (21:00)
[2022-01-05] MEDS: AMITRIPTYLINE 25 MG TAB PO SCH (21:21)
[2022-01-05] MEDS: ATORVASTATIN 40 MG TAB PO SCH (21:21)
[2022-01-06] MEDS: NA CHLORIDE 0.9% 1,000 ML IV SCH ×3 (01:39→14:19)
[2022-01-06] MEDS: HYDROCODONE/APAP 10/325 TAB PO PRN ×4 (03:35→20:55)
[2022-01-06] MEDS: LORAZEPAM 0.5 MG TABLET PO PRN ×3 (06:21→20:45)
[2022-01-06] MEDS ORDERED: PANTOPRAZOLE 40MG TABLET PO SCH (07:30)
[2022-01-06] MEDS: PANTOPRAZOLE 40 MG INJ IVP SCH ×2 (08:37→20:46)
[2022-01-06] MEDS: carvediloL 12.5 MG TAB PO SCH ×2 (08:37→20:57)
[2022-01-06] MEDS: AMITRIPTYLINE 25 MG TAB PO SCH ×2 (08:37→20:45)
[2022-01-06] MEDS: BACLOFEN 10 MG TAB PO SCH ×3 (08:38→20:44)
[2022-01-06] MEDS: AMLODIPINE 5 MG TAB PO SCH (08:38)
[2022-01-06] MEDS: GABAPENTIN 400 MG CAP PO SCH ×3 (08:38→20:45)
[2022-01-06] MEDS ORDERED: ASPIRIN EC 81 MG TAB PO SCH (09:00)
[2022-01-06] MEDS ORDERED: POTASSIUM 25 MEQ EFFERV TAB PO ONE (09:00)
[2022-01-06] MEDS ORDERED: CLOPIDOGREL 75 MG TABLET PO SCH (09:00)
--- NOTE | 2022-01-06 11:18 | EKG ---
Test Date: 2022-01-03 Test Time: 23:08:22 Microbiological Lab Technician: MEASUREMENT RESULTS: Intervals: Rate: 59 DE: 204 QRSD: 96 QT: 458 QTc: 453 [place]: P: 41 DE: 204 QRS: -30 T: -2 INTERPRETIVE STATEMENTS: Sinus bradycardia Left axis deviation Incomplete right bundle branch block Abnormal ECG Compared to ECG 07/22/2021 14:11:31 Left-axis deviation now present Incomplete right bundle-branch block now present Sinus rhythm no longer present First degree AV block no longer present Electronically Signed On 01-06-22 11:12:57 CDT by Ernst Hewitt
[2022-01-06] MEDS: HYDRALAZINE HCL 25 MG TABLET PO SCH ×2 (14:18→20:46)
[2022-01-06] MEDS: ATORVASTATIN 40 MG TAB PO SCH (20:45)
[2022-01-06] MEDS: TAMSULOSIN 0.4 MG SR CAP PO SCH ×2 (20:45→20:58)
[2022-01-06] MEDS ORDERED: TEMAZEPAM 30 MG PO SCH (21:00)
[2022-01-06] MEDS: TEMAZEPAM 15 MG CAP PO SCH (22:10)
[2022-01-07] MEDS: NA CHLORIDE 0.9% 1,000 ML IV SCH ×3 (00:46→22:37)
[2022-01-07] MEDS: HYDROCODONE/APAP 10/325 TAB PO PRN ×4 (03:34→22:26)
[2022-01-07] MEDS: LORAZEPAM 0.5 MG TABLET PO PRN ×3 (05:44→22:27)
[2022-01-07 06:25] LABS: Absolute Lymphocytes (CBC) 1.2 K/uL (0.7-4.9); Hematocrit 39.1 % (39.6-49.0); Lymphocytes % 20.3 % (15.3-44.8); MPV 9.2 fL (7.6-11.3); RBC Red Blood Cell Count 4.14 M/uL (4.33-5.43)
[2022-01-07 06:43] LABS: Bilirubin Total 0.3 mg/dL (0.2-1.0); Potassium 4.1 mmol/L (3.5-5.1); Protein, Total 5.9 g/dL (6.4-8.2)
[2022-01-07] MEDS: HYDRALAZINE HCL 25 MG TABLET PO SCH ×3 (08:30→22:27)
[2022-01-07] MEDS: GABAPENTIN 400 MG CAP PO SCH ×3 (08:30→22:26)
[2022-01-07] MEDS: BACLOFEN 10 MG TAB PO SCH ×3 (08:31→22:27)
[2022-01-07] MEDS: carvediloL 12.5 MG TAB PO SCH ×2 (08:31→22:25)
[2022-01-07] MEDS: AMLODIPINE 5 MG TAB PO SCH (08:31)
[2022-01-07] MEDS: AMITRIPTYLINE 25 MG TAB PO SCH ×2 (08:31→22:27)
[2022-01-07] MEDS: PANTOPRAZOLE 40 MG INJ IVP SCH ×2 (08:32→22:24)
[2022-01-07] MEDS: ACETAMINOPHEN 325 MG TABLET PO PRN (10:57)
[2022-01-07] MEDS ORDERED: MAGNESIUM HYDROXIDE 8% 30 ML PO PRN (14:35)
[2022-01-07] MEDS ORDERED: BISACODYL E.C. 5 MG TAB PO ONE (15:00)
[2022-01-07] MEDS: TEMAZEPAM 15 MG CAP PO SCH (22:25)
[2022-01-07] MEDS: ATORVASTATIN 40 MG TAB PO SCH (22:26)
[2022-01-07] MEDS: TAMSULOSIN 0.4 MG SR CAP PO SCH (22:26)
[2022-01-08] MEDS: HYDROCODONE/APAP 10/325 TAB PO PRN (04:58)
[2022-01-08 05:59] LABS: Absolute Lymphocytes (CBC) 0.9 K/uL (0.7-4.9); Hematocrit 33.7 % (39.6-49.0); Lymphocytes % 21.5 % (15.3-44.8); MPV 9.7 fL (7.6-11.3); RBC Red Blood Cell Count 3.53 M/uL (4.33-5.43)
[2022-01-08 06:20] LABS: BUN Blood Urea Nitrogen 17 mg/dL (7-18); Bicarbonate 23 mmol/L (21-32); Glucose Level 69 mg/dL (74-106); Magnesium 1.5 mg/dL (1.8-2.4); Potassium 3.2 mmol/L (3.5-5.1); Sodium Level 146 mmol/L (136-145)
[2022-01-08] MEDS: LORAZEPAM 0.5 MG TABLET PO PRN (07:03)
[2022-01-08 07:51] LABS: Potassium 4.4 mmol/L (3.5-5.1)
[2022-01-08] MEDS: NA CHLORIDE 0.9% 1,000 ML IV SCH (07:53)
[2022-01-08] MEDS: AMITRIPTYLINE 25 MG TAB PO SCH (09:55)
[2022-01-08] MEDS: PANTOPRAZOLE 40 MG INJ IVP SCH (09:55)
[2022-01-08] MEDS: GABAPENTIN 400 MG CAP PO SCH (09:56)
[2022-01-08] MEDS: carvediloL 12.5 MG TAB PO SCH (09:57)
[2022-01-08] MEDS: BACLOFEN 10 MG TAB PO SCH (09:58)
[2022-01-08] MEDS: AMLODIPINE 5 MG TAB PO SCH (09:59)
[2022-01-08] MEDS: HYDRALAZINE HCL 25 MG TABLET PO SCH (10:00)
[2022-01-08 11:15] VITALS: O2SAT 94
[2022-01-08 12:50] VITALS: BP 175/81; TEMP 96.6
--- NOTE | 2022-02-09 23:35 | P.PN ---
Date of Service: 01/06/22 Subjective Patient's GI bleeding is stable. Blood pressures controlled. Continue monitoring H&H. Review of Systems General: Weakness Neurological: Other (Slight dizziness) Physical Examination - Vital Signs Reviewed - Physical Exam General: Alert, In no apparent distress, Oriented x3, Mild distress Respiratory: Clear to auscultation bilaterally Cardiovascular: No edema, Regular rate/rhythm, Normal S1 S2 Gastrointestinal: Normal bowel sounds, Soft and benign Musculoskeletal: No clubbing, No contractures Integumentary: No rashes, No breakdown Assessment And Plan - Current Problems (Diagnosis) (1) GI bleed Current Visit: Yes Status: Acute Qualifiers: GI bleed type/associated pathology: unspecified gastrointestinal hemorrhage type Qualified Code(s): K92.2 - Gastrointestinal hemorrhage, unspecified (2) Hypertension Current Visit: Yes Status: Acute - Plan Plan: 1. Continue with IV hydration and PPI drip 2. Continue with IV antibiotics 3. Continue with pain control 4. NPO 5. GI consultation 6. Serial H&H, and we will monitor LFTs and lipase along with electrolytes. 7. GI and DVT prophylaxis
--- NOTE | 2022-02-09 23:36 | P.PN ---
Date of Service: 01/07/22 Subjective Hemoglobin remained stable. No other signs or symptoms of any abnormalities. Physical Examination - Vital Signs Reviewed - Physical Exam General: Alert, In no apparent distress, Oriented x3, Mild distress Respiratory: Clear to auscultation bilaterally Cardiovascular: No edema, Regular rate/rhythm, Normal S1 S2 Gastrointestinal: Normal bowel sounds, Soft and benign Musculoskeletal: No clubbing, No contractures Integumentary: No rashes, No breakdown Assessment And Plan - Current Problems (Diagnosis) (1) GI bleed Current Visit: Yes Status: Acute Qualifiers: GI bleed type/associated pathology: unspecified gastrointestinal hemorrhage type Qualified Code(s): K92.2 - Gastrointestinal hemorrhage, unspecified (2) Hypertension Current Visit: Yes Status: Acute - Plan Plan: 1. Continue with IV hydration and PPI drip 2. Continue with IV antibiotics 3. Continue with pain control 4. NPO 5. GI consultation 6. Serial H&H, and we will monitor LFTs and lipase along with electrolytes. 7. GI and DVT prophylaxis
--- NOTE | 2022-02-09 23:37 | P.DS ---
Discharge Date: 01/08/22 Disposition: ROUTINE DISCHARGE Discharge Condition: GOOD Reason for Admission: Syncope Brief History of Present Illness: 61-year-old male with history of CHF, CAD status post CABG, hypertension, hyperlipidemia presented to the emergency department for syncope. Patient reports feeling weak and dizzy throughout the day today had a syncopal episode while trying to feed his dogs, he bent over and fell forward hitting his forehead hematoma noted to forehead CT without contrast negative for acute findings. His labs were significant for mild ROZ with creatinine 1.52 GFR 47 initial troponin negative EKG without acute changes chest x-ray unremarkable his orthostatic vital signs were positive in the emergency department he was given IV fluids given significant history of CAD/CABG, CHF ED provider wishes to admit under observation. Hospital Course: Patient's hemoglobin has been stable. Patient blood pressure is stable. Patient is clinically doing much better. At this time, patient is stable for discharge home with outpatient follow-up. Vital Signs/Physical Exam: Temp Pulse Resp BP Pulse Ox 96.6 F L 84 15 175/81 H 96 01/08/22 12:00 01/08/22 12:00 01/08/22 12:00 01/08/22 12:00 01/08/22 12:00 General: Alert, In no apparent distress, Oriented x3 Laboratory Data at Discharge: WBC 4.4 K/uL (4.3-10.9) D 01/08/22 05:29 Hgb 11.3 g/dL (13.6-17.9) L 01/08/22 05:29 Hct 33.7 % (39.6-49.0) L 01/08/22 05:29 Plt Count 145 K/uL (152-406) L 01/08/22 05:29 PT 10.7 SECONDS (9.5-12.5) 01/03/22 23:35 INR 0.97 01/03/22 23:35 Sodium 139 mmol/L (136-145) 01/08/22 07:15 Potassium 4.4 mmol/L (3.5-5.1) 01/08/22 07:15 BUN 21 mg/dL (7-18) H 01/08/22 07:15 Creatinine 1.03 mg/dL (0.55-1.3) 01/08/22 07:15 Glucose 103 mg/dL (74-106) 01/08/22 07:15 Magnesium 1.5 mg/dL (1.8-2.4) L D 01/08/22 05:29 Total Bilirubin 0.3 mg/dL (0.2-1.0) 01/07/22 06:08 AST 12 U/L (15-37) L 01/07/22 06:08 ALT 18 U/L (12-78) 01/07/22 06:08 Alkaline Phosphatase 65 U/L (45-117) 01/07/22 06:08 Home Medications: Atorvastatin Calcium [Lipitor] 40 mg PO BEDTIME 05/28/20 Baclofen 20 mg PO TID 05/28/20 Gabapentin 1,200 mg PO TID 05/28/20 Clopidogrel Bisulfate [Plavix*] 75 mg PO DAILY 30 Days #30 tablet 05/29/20 Amitriptyline [Elavil*] 25 mg PO BID 07/08/21 Aspirin [Aspirin EC 81 MG] 81 mg PO DAILY 07/08/21 Carvedilol [Coreg] 12.5 mg PO BID 07/08/21 Furosemide 10 mg PO DAILY 07/08/21 Tamsulosin [Flomax*] 0.4 mg PO BEDTIME 07/08/21 Nitroglycerin [Nitrostat*] 0.4 mg SL UD PRN #20 tab 07/09/21 Temazepam 30 mg PO BEDTIME 01/05/22 Pantoprazole [Protonix Tab*] 40 mg PO BID #60 tab 01/08/22 New Medications: Pantoprazole [Protonix Tab*] 40 mg PO BID #60 tab Physician Discharge Instructions: -DC IV and DC home -Follow-up with PCP in 1 to 2 weeks -Follow-up with Cardiology in 1 to 2 weeks -Please call Dr. Trivedi at [phone] if any questions regarding hospital stay -Please call nursing station at [phone] if any nursing or medication questions -Return to the emergency room if symptoms worsen Diet: AHA Activity: Fall precautions Followup: Unknown,U [Primary Care Provider] - Time spent managing pt's care (in minutes): 35
== END 2022-01-08 13:58 | disposition home or self-care (01) | DRG 683 ==
LOC: ER 22:43 → ERHOLD 01-04 01:40 → 2ND 01-04 09:36 → OBSVTOIN 01-05 12:18
PROVIDERS: ADMIT Internal Medicine Sleep Medicine; ATTEND Hospitalist
DX: N17.9 Acute kidney failure, unspecified (principal); K92.1 Melena; I95.1 Orthostatic hypotension; S00.83XA Contusion of other part of head, initial encounter; I25.10 Atherosclerotic heart disease of native coronary artery without angina pectoris; E78.5 Hyperlipidemia, unspecified; I11.0 Hypertensive heart disease with heart failure; I50.9 Heart failure, unspecified; W18.39XA Other fall on same level, initial encounter; Y93.K9 Activity, other involving animal care; Y92.009 Unspecified place in unspecified non-institutional (private) residence as the place of occurrence of the external cause; Z95.1 Presence of aortocoronary bypass graft; N40.0 Benign prostatic hyperplasia without lower urinary tract symptoms; Z20.822 Contact with and (suspected) exposure to COVID-19
CPT/HCPCS: 0240U; 36415; 70450; 71045; 80048; 80053; 80076; 81003; 82550; 83735; 83880; 84439; 84443; 84484; 85025; 85027; 85610; 93005; 97116; 97161; 97530; 99285; C9113; G0378; J0360; J1650; J7030

== ENCOUNTER 2022-02-08 08:19 | Emergency (ER) | payer OTHER ==
--- OUTSIDE RECORDS SUMMARY | 2022-02-08 08:27 | XMS REPORT | Continuity of Care Document ---
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 COUNT & AUTO [id number] 03:56:00 Test Item Value Reference Range Interpretation [...] 2801) RAD, KNEE, 1 OR 2 VIEWS, [id number] 12:41:00Reason for exam:->femur fractureShould this be performed at the bedside?->protable [facility] [place] [facility] 1960 Sex: MFINAL [...] MDReport Verified Date/Time: 01/13/2021 12:41:56 Reading Location: [address] Transitional Reading Room LIPID [id number] 05:37:00 Test Item Value Reference Range Interpretation [...] Borderline 130-159 High 160-189 Very High >=190 Supervisor Post Wave ID - Lizbeth TBASIC METABOLIC [id number] 05:30:00 Test Item Value Reference Range Interpretation [...] S NOT APPLICABLE FOR DIALYSIS PATIEN TS. Supervisor Post Wave ID - Lizbeth [id number] 05:30:00 Test Item Value Reference Range Interpretation Comments MAGNESIUM (BEAKER) (test code = 1.8 mg/dL 1.5-3.0 627) Supervisor Post Wave ID - Lizbeth [id number] 05:30:00 Test Item Value Reference Range Interpretation Comments PHOSPHORUS (BEAKER) (test code = 4.2 mg/dL 2.5-4.5 604) Supervisor Post Wave ID - Lizbeth THEPATIC FUNCTION [id number] 05:30:00 Test Item Value Reference Range Interpretation [...] (test code = 36 U/L 5-50 347) Supervisor Post Wave ID Adam Nieves YADYOPONIN [id number] 05:28:00 Test Item Value Reference Range Interpretation [...] failure, acidosis, acute neurological disease, and persistent tachyarrhythmia.Supervisor Post Wave ID Adam Nieves THEMOGLOBIN A1C 2021-01-13 05:21:00 Test Item Value Reference Range Interpretation Comments HEMOGLOBIN A1C (BEAKER) (test code = 5.4 % 4.3-6.1 368) Supervisor Post Wave ID Adam Nieves TCBC W/PLT COUNT & AUTO [id number] 05:05:00 Test Item Value Reference Range Interpretation [...] 0-0 H PERCENT (BEAKER) (test code = 2803) [id number] 05:55:00 Test Item Value Reference Range Interpretation Comments MAGNESIUM (BEAKER) 2.1 mg/dL 1.6-2.6 Specimen slightly (test code = 627) hemolyzed Supervisor Post Wave ID - YANETH MBASIC METABOLIC [id number] 05:55:00 Test Item Value Reference Range Interpretation [...] S NOT APPLICABLE FOR DIALYSIS PATIEN TS. Supervisor Post Wave ID - YANETH MCBC W/PLT COUNT & AUTO [id number] 05:19:00 Test Item Value Reference Range Interpretation [...] = 2801) RAD, CHEST, 1 VIEW, NON [id number] 07:51:00While IABP in place and following each repositioning of IABPReason for exam:->While IABP in placeand following each repositioning of IABPShould this be performed at the bedside?->Yes [facility]LOISA[facility] MCKINLEY : 1960 Sex: MFINAL REPORT RAD, CHEST, [...] MDReport Verified Date/Time: 08/15/2020 07:51:39 Reading Location: [facility] Radiology Reading Room CBC W/PLT COUNT & AUTO [id number] 06:11:00 Test Item Value Reference Range Interpretation [...] 0-1 PERCENT (BEAKER) (test code = 2801) [id number] 05:54:00 Test Item Value Reference Range Interpretation Comments MAGNESIUM (BEAKER) 2.0 mg/dL 1.6-2.6 Specimen slightly (test code = 627) hemolyzed Supervisor Post Wave ID - BSBASIC METABOLIC [id number] 05:54:00 Test Item Value Reference Range Interpretation [...] S NOT APPLICABLE FOR DIALYSIS PATIEN TS. Supervisor Post Wave ID - [id number] 10:27:00 Test Item Value Reference Range Interpretation Comments MAGNESIUM (BEAKER) (test code = 2.0 mg/dL 1.6-2.6 627) Supervisor Post Wave ID - MAIDA FOperator REESE BEY FBASIC METABOLIC [id number] 06:28:00 Test Item Value Reference Range Interpretation [...] S NOT APPLICABLE FOR DIALYSIS PATIEN TS. Supervisor Post Wave ID - YANETH MTROPONIN [id number] 06:27:00 Test Item Value Reference Range Interpretation [...] failure, acidosis, acute neurological disease, and persistent tachyarrhythmia.Supervisor Post Wave ID - YANETH MCBC W/PLT COUNT & AUTO [id number] 05:49:00 Test Item Value Reference Range Interpretation [...] = 2801) RAD, CHEST, 1 VIEW, NON [id number] 04:53:00While IABP in place and following each repositioning of IABPReason for exam:->While IABP in placeand following each repositioning of IABPShould this be performed at the bedside?->Yes [facility] [place] [facility] 1960 Sex: MFINAL [...] findings: None. Signed: Maddie Ibrahim Verified Date/Time: 08/14/2020 04:53:24 [id number] 03:01:00 Test Item Value Reference Range Interpretation Comments PARTIAL THROMBOPLASTIN TIME 40.3 seconds 22.5-36.0 H (BEAKER) (test code = 760) [id number] 19:46:00 Test Item Value Reference Range Interpretation Comments PARTIAL THROMBOPLASTIN TIME 27.3 seconds 22.5-36.0 (BEAKER) (test code = 760) CBC W/PLT COUNT & AUTO [id number] 19:38:00 Test Item Value Reference Range Interpretation [...] PERCENT (BEAKER) (test code = 2801) PLATELET [id number] 19:38:00 Test Item Value Reference Range Interpretation Comments PLATELET COUNT (BEAKER) (test 218 K/CU MM 150-450 code = 756) SARS-COV2/RT-PCR ([facility])2020-08-13 16:30:00 Test Item Value Reference Range Interpretation Comments SARS-COV2/RT-PCR (test Negative Not Detected, Negative, code = 0812957) See external report for linked test SARS-COV-2 PERFORMING LAB [facility] PAULINE (test code = 2345008) Negative result for this test determines that [...] of the Act.Testing was performed using the [employer] SARS-CoV-2 assay.Fact Sheet for Healthcare Providers:https://www.Qriously.Dealer Ignition/lakesha/ MD_NMRR-EgG-5_MGF_Hwbr_Uuohw_94-226490.pdfFact Sheet for Healthcare Patients:https://www.[employer]ously.ab juan/lakesha/NM_ZXMG-SlZ-5_Joaisif_Zwln_Xdppv_IS_36-527377X7.pdfPerforming Laboratory:[facility] [place] [address] [id number] 11:41:00 Test Item Value Reference Range Interpretation Comments ACTIVATED CLOTTING TIME 114 sec : 74 -137 seconds, (BEAKER) (test code = Baseli ne: TESTED AT 441) [facility] [address] [facility], [facility] 30: Supervisor Post Wave/Techni norah ID = [id number] for HEYDI COVARRUBIAS TROPONIN [id number] 03:52:00 Test Item Value Reference Range Interpretation [...] failure, acidosis, acute neurological disease, and persistent tachyarrhythmia.Supervisor Post Wave ID - YANETH [id number] 02:59:00 Test Item Value Reference Range Interpretation Comments PARTIAL THROMBOPLASTIN TIME 143.9 seconds 22.5-36.0 H (BEAKER) (test code = 760) Prior to initiating [id number] 02:50:00 Test Item Value Reference Range Interpretation Comments FIBRINOGEN LEVEL (BEAKER) (test 334 mg/dl 225-434 code = 658) Prior to initiating heparinBASIC METABOLIC [id number] 02:49:00 Test Item Value Reference Range Interpretation [...] S NOT APPLICABLE FOR DIALYSIS PATIEN TS. Supervisor Post Wave ID - YANETH [id number] 02:49:00 Test Item Value Reference Range Interpretation Comments MAGNESIUM (BEAKER) (test code = 1.5 mg/dL 1.6-2.6 L 627) Supervisor Post Wave ID - YANETH MCBC W/PLT COUNT & AUTO [id number] 02:45:00 Test Item Value Reference Range Interpretation [...] = 2801) RAD, CHEST, 1 VIEW, NON [id number] 02:40:00While IABP in place and following each repositioning of IABPReason for exam:->While IABP in placeand following each repositioning of IABPShould this be performed at the bedside?->Yes [facility] [place] [facility] : 1960 Sex: [...] code = Baseli ne: TESTED AT 441) [facility] [address] [place] [address], [facility] 30: Supervisor Post Wave/Techni norah ID = [id number] for PEPE Diaz [id number] 21:01:00 Test Item Value Reference Range Interpretation Comments ACTIVATED CLOTTING TIME 235 sec : 74 -137 seconds, (BEAKER) (test code = Baseli ne: TESTED AT 441) [address], [facility] 30: Supervisor Post Wave/Techni norah ID = [id number] for BERNADETTE JOSEPH TROPONIN [id number] 19:47:00 Test Item Value Reference Range Interpretation Comments TROPONIN I (BEAKER) (test code = 4.13 ng/mL 0.00-0.03 [facility]) Troponin I (TnI) levels must be [...] failure, acidosis, acute neurological disease, and persistent tachyarrhythmia.Supervisor Post Wave ID - DBPT/[id number] 19:35:00 Test Item Value Reference Range Interpretation [...] for patients wiht mechanical heart valves.BASIC METABOLIC [id number] 19:35:00 Test Item Value Reference Range Interpretation [...] S NOT APPLICABLE FOR DIALYSIS PATIEN TS. Supervisor Post Wave ID - DBPROTHROMBIN TIME/[id number] 19:34:00 Test Item Value Reference Range Interpretation [...] for patients wiht mechanical heart valves.LACTIC ACID, [id number] 19:33:00 Test Item Value Reference Range Interpretation Comments LACTATE BLOOD VENOUS 1.60 mmol/L 0.50-2.20 Specime n slightly (2) (BEAKER) (test hemolyzed code = 2872) Supervisor Post Wave ID - DBCBC W/PLT COUNT & AUTO [id number] 19:22:00 Test Item Value Reference Range Interpretation [...] (test code = 2801) RAD, CHEST, 2 [id number] 13:16:00Reason for Exam:->postsurgical [facility] up[facility] [place] AM[facility] : 1960 Sex: MFINAL REPORT INDICATION: postsurgical follow up COMPARISON: None ROSSY HNIQUE: Frontal and lateral views of the chest. FINDINGS: Lungs and pleura: Clear lungs. No effusion.Heart and mediastinum: Normal heart size. Unremarkable mediastinal contours.Osseous structures: No acute abnormality.Additional findings: None. IMPRESSION: No acute intrathoracic abnormality. Signed: Sabiha Weaver Verified Date/Time: 07/31/2020 13:16:51 Reading Location: [facility] Radiology Reading Room POCT-GLUCOSE [id number] 11:26:00 Test Item Value Reference Range Interpretation Comments POC-GLUCOSE METER 118 mg/dL 70-110 H : TESTED A T [facility] 6720 (BEAKER) (test code = [place], 1538) [address]: Supervisor Post Wave/Techni norah ID = [id number] for EDITH KAY POCT-GLUCOSE [id number] 09:19:00 Test Item Value Reference Range Interpretation Comments POC-GLUCOSE METER 106 mg/dL 70-110 : TESTED A T [facility] 6720 (BEAKER) (test code = CHRISTINA Horton [facility], 1538) [address]: Supervisor Post Wave/Techni norah ID = [id number] for EDITH KAY BASIC METABOLIC [id number] 06:55:00 Test Item Value Reference Range Interpretation [...] S NOT APPLICABLE FOR DIALYSIS PATIEN TS. Supervisor Post Wave ID - YANETH [id number] 06:55:00 Test Item Value Reference Range Interpretation Comments MAGNESIUM (BEAKER) (test code = 1.8 mg/dL 1.6-2.6 627) Supervisor Post Wave ID - YANETH MCBC W/PLT COUNT & AUTO [id number] 06:33:00 Test Item Value Reference Range Interpretation [...] = 2801) RAD, CHEST, 1 VIEW, NON [id number] 05:50:00Reason for exam:->chest tubes/ vapothermShould this be [...] posterior third and fourth ribs. Signed: Joyce Raglandeptenet [place] Verified Date/Time: 07/18/2020 05:50:00 POCT-GLUCOSE [id number] 21:14:00 Test Item Value Reference Range Interpretation Comments POC-GLUCOSE METER 128 mg/dL 70-110 H : [facility] T [facility] 67[facility] (BEAKER) (test code = [employer] [facility] [place], 1538) [address]: Supervisor Post Wave/Techni norah ID = [id number] for Nataliia Lwoe OSMOLALITY, [id number] 17:58:00 Test Item Value Reference Range Interpretation Comments OSMOLALITY, SERUM (BEAKER) (test 269 mOsm/kg 275-295 L code = 615) POTASSIUM, RANDOM [id number] 17:44:00 Test Item Value Reference Range Interpretation Comments POTASSIUM URINE (BEAKER) (test 71.0 meq/L code = 195) Reference Range: No NormalsOperator ID - BSSODIUM, RANDOM [id number] 17:44:00 Test Item Value Reference Range Interpretation Comments SODIUM URINE (BEAKER) (test code = 40 meq/L 243) Reference Range: No NormalsOperator ID - BSUREA NITROGEN, RANDOM [id number] 17:44:00 Test Item Value Reference Range Interpretation Comments UREA NITROGEN URINE (BEAKER) (test 475 mg/dL code = 538) Reference Range: No NormalsOperator ID - BSPOCT-GLUCOSE [id number] 16:56:00 Test Item Value Reference Range Interpretation Comments POC-GLUCOSE METER 105 mg/dL 70-110 : TESTED A T [facility] 6720 (BEAKER) (test code = [employer] [facility] [place], 1538) [address]: Supervisor Post Wave/Techni norah ID = [id number] for KASSIDY TAVARES OSMOLALITY, [id number] 16:29:00 Test Item Value Reference Range Interpretation Comments OSMOLALITY URINE (BEAKER) (test 442 mOsm/kg 50-1,200 mOsm/kg code = 614) POCT-GLUCOSE [id number] 11:03:00 Test Item Value Reference Range Interpretation Comments POC-GLUCOSE METER 116 mg/dL 70-110 H : TESTED A T [facility] 6720 (BEAKER) (test code = [facility], 1538) [address]: Supervisor Post Wave/Techni norah ID = [id number] for KASSIDY TAVARES RAD, CHEST, 1 VIEW, NON [id number] 09:24:00Reason for exam:->chest tubes/ vapothermShould this be [...] Sandhuort Verified Date/Time: 07/17/2020 09:24:02 Reading Location: [facility] Radiology Reading Room POCT-GLUCOSE [id number] 07:42:00 Test Item Value Reference Range Interpretation Comments POC-GLUCOSE METER 137 mg/dL 70-110 H : TESTED A T [facility] 6720 (BEAKER) (test code = [facility], 1538) [address]: Supervisor Post Wave/Techni norah ID = [id number] for KASSIDY TAVARES BASIC METABOLIC [id number] 07:26:00 Test Item Value Reference Range Interpretation [...] S NOT APPLICABLE FOR DIALYSIS PATIEN TS. Supervisor Post Wave ID Adam LORENZ [id number] 07:26:00 Test Item Value Reference Range Interpretation Comments MAGNESIUM (BEAKER) (test code = 1.8 mg/dL 1.6-2.6 627) Supervisor Post Wave ID Adam LORENZ LCBC W/PLT COUNT & AUTO [id number] 07:14:00 Test Item Value Reference Range Interpretation [...] (BEAKER) (test code = 2801) BLOOD GAS, [id number] 06:13:00 Test Item Value Reference Range Interpretation [...] 1819) 21.0 Please obtain room air ABG.POCT-GLUCOSE [id number] 21:26:00 Test Item Value Reference Range Interpretation Comments POC-GLUCOSE METER 123 mg/dL 70-110 H : TESTED A T [facility] 6720 (BEAKER) (test code = [facility], 1538) [address]: Supervisor Post Wave/Techni norah ID = [id number] for SHANA SKY SE POCT-GLUCOSE [id number] 17:43:00 Test Item Value Reference Range Interpretation Comments POC-GLUCOSE METER 104 mg/dL 70-110 : TESTED A T [facility] 6720 (BEAKER) (test code = [facility], 1538) [address]: Supervisor Post Wave/Techni norah ID = [id number] for TAHIR NTMALORIE POWERSWITHA [id number] 14:53:00 Test Item Value Reference Range Interpretation Comments FERRITIN (BEAKER) (test code = 214.98 ng/mL 5.00-275.00 361) Supervisor Post Wave ID - BSVITAMIN B12 AND [id number] 14:53:00 Test Item Value Reference Range Interpretation Comments VITAMIN B12 (BEAKER) (test code = 1276 pg/mL 213-816 H 774) FOLATE (BEAKER) (test code = 362) 6.50 ng/mL >=7.00 L Supervisor Post Wave ID - BSIRON, TIBC, % SAT. (WITHOUT FERRITIN)2020-07-16 14:18:00 Test Item Value Reference Range Interpretation Comments IRON (BEAKER) (test code = 547) 30.0 ug/dL 40.0-160.0 L TOTAL IRON BINDING CAPACITY 336 ug/dL 250-450 (BEAKER) (test code = 769) IRON % SATURATION (2) (BEAKER) 9 % 20-55 L (test code = 2590) Supervisor Post Wave ID - AAHAMIDPOCT-GLUCOSE [id number] 11:30:00 Test Item Value Reference Range Interpretation Comments POC-GLUCOSE METER 115 mg/dL 70-110 H : TESTED A T [facility] 6720 (BEAKER) (test code = [facility], 153) [address]: Supervisor Post Wave/Techni norah ID = [id number] for JASON SHEFFIELD RAD, CHEST, 1 VIEW, NON [id number] 11:19:00Reason for exam:->chest tubes/ vapothermShould this be [...] MDReport Verified Date/Time: 07/16/2020 11:19:22 Reading Location: [facility] Radiology Reading Room POCT-GLUCOSE [id number] 07:23:00 Test Item Value Reference Range Interpretation Comments POC-GLUCOSE METER 114 mg/dL 70-110 H : [facility] 6720 (BEAKER) (test code = [place], 1538) [address]: Supervisor Post Wave/Techni norah ID = [id number] for DILSHAD JOSEPH BASIC METABOLIC [id number] 07:16:00 Test Item Value Reference Range Interpretation [...] S NOT APPLICABLE FOR DIALYSIS PATIEN TS. Supervisor Post Wave ID - YANETH [id number] 07:16:00 Test Item Value Reference Range Interpretation Comments MAGNESIUM (BEAKER) (test code = 2.0 mg/dL 1.6-2.6 627) Supervisor Post Wave ID - YANETH MCBC W/PLT COUNT & AUTO [id number] 06:27:00 Test Item Value Reference Range Interpretation [...] PERCENT (BEAKER) (test code = 2801) POCT-GLUCOSE [id number] 22:38:00 Test Item Value Reference Range Interpretation Comments POC-GLUCOSE METER 130 mg/dL 70-110 H : TESTED A T [facility] 6720 (BEAKER) (test code = [facility], 1538) [address]: Supervisor Post Wave/Techni norah ID = [id number] for WILLIAM MCMANUS POCT-GLUCOSE [id number] 17:00:00 Test Item Value Reference Range Interpretation Comments POC-GLUCOSE METER 116 mg/dL 70-110 H : TESTED A T [facility] 6720 (BEAKER) (test code = [facility], 1538) [address]: Supervisor Post Wave/Techni norah ID = [id number] for EDITH KAY POCT-GLUCOSE [id number] 11:22:00 Test Item Value Reference Range Interpretation Comments POC-GLUCOSE METER 141 mg/dL 70-110 H : TESTED A T [facility] 6720 (BEAKER) (test code = [facility], 1538) [address]: Supervisor Post Wave/Techni norah ID = [id number] for EDITH KAY POCT-GLUCOSE [id number] 07:53:00 Test Item Value Reference Range Interpretation Comments POC-GLUCOSE METER 114 mg/dL 70-110 H : TESTED A T [facility] 6720 (BEAKER) (test code = [facility], 1538) [address]: Supervisor Post Wave/Techni norah ID = [id number] for EDITH KAY RAD, CHEST, 1 VIEW, NON [id number] 07:52:00Reason for exam:->chest tubes/ vapothermShould this be [...] Martinez Verified Date/Time: 07/15/2020 07:52:20 C METABOLIC [id number] 06:33:00 Test Item Value Reference Range Interpretation [...] S NOT APPLICABLE FOR DIALYSIS PATIEN TS. Supervisor Post Wave ID - PIAYA [id number] 06:23:00 Test Item Value Reference Range Interpretation Comments MAGNESIUM (BEAKER) (test code = 2.0 mg/dL 1.6-2.6 627) Supervisor Post Wave ID - PITIGIST LCBC W/PLT COUNT & AUTO [id number] 05:56:00 Test Item Value Reference Range Interpretation [...] PERCENT (BEAKER) (test code = 2801) POCT-GLUCOSE [id number] 21:49:00 Test Item Value Reference Range Interpretation Comments POC-GLUCOSE METER 121 mg/dL 70-110 H : TESTED A T [facility] 6720 (BEAKER) (test code = [place], 1538) [address]: Supervisor Post Wave/Techni norah ID = [id number] for BON REECE IIITOHNY BASIC METABOLIC [id number] 05:04:00 Test Item Value Reference Range Interpretation [...] S NOT APPLICABLE FOR DIALYSIS PATIEN TS. [id number] 05:04:00 Test Item Value Reference Range Interpretation Comments MAGNESIUM (BEAKER) (test code = 2.1 mg/dL 1.6-2.6 627) RAD, CHEST, 1 VIEW, NON [id number] 04:51:00Reason for exam:->chest tubes/ vapothermShould this be [...] PERCENT (BEAKER) (test code = 2801) POCT-GLUCOSE [id number] 01:33:00 Test Item Value Reference Range Interpretation Comments POC-GLUCOSE METER 134 mg/dL 70-110 H : TESTED A T [facility] 6720 (BEAKER) (test code = [place], 1538) [address]: Supervisor Post Wave/Techni norah ID = [id number] for [facility] III, THONY BASIC METABOLIC [id number] 07:23:00 Test Item Value Reference Range Interpretation [...] S NOT APPLICABLE FOR DIALYSIS PATIEN TS. Supervisor Post Wave ID - [id number] 06:58:00 Test Item Value Reference Range Interpretation Comments MAGNESIUM (BEAKER) (test code = 2.1 mg/dL 1.6-2.6 627) Supervisor Post Wave ID - EDASICBC W/PLT COUNT & AUTO [id number] 06:41:00 Test Item Value Reference Range Interpretation [...] = 2801) RAD, CHEST, 1 VIEW, NON [id number] 05:53:00Reason for exam:->chest tubes/ vapothermShould this be [...] Ragland MDReport Verified Date/Time: 07/13/2020 05:53:50 POCT-GLUCOSE [id number] 06:29:00 Test Item Value Reference Range Interpretation Comments POC-GLUCOSE METER 113 mg/dL 70-110 H : [facility]ED A T [facility] 6720 (BEAKER) (test code = CHRISTINA Clifford [facility], 1538) [address]: Supervisor Post Wave/Techni norah ID = [id number] for JAMIE TA BASIC METABOLIC [id number] 06:20:00 Test Item Value Reference Range Interpretation [...] S NOT APPLICABLE FOR DIALYSIS PATIEN TS. Supervisor Post Wave ID - YANETH [id number] 06:15:00 Test Item Value Reference Range Interpretation Comments MAGNESIUM (BEAKER) (test code = 2.1 mg/dL 1.6-2.6 627) Supervisor Post Wave ID - YANETH MCBC W/PLT COUNT & AUTO [id number] 04:58:00 Test Item Value Reference Range Interpretation [...] (BEAKER) (test code = 2801) BLOOD GAS, [id number] 04:37:00 Test Item Value Reference Range Interpretation [...] 36.0 % RAD, CHEST, 1 VIEW, NON [id number] 03:32:00Reason for exam:->chest tubes/ vapothermShould this be [...] pneumothorax. Signed: Joyce Ragland Verified Date/Time: 07/12/202003:32:05 POCT-GLUCOSE [id number] 23:35:00 Test Item Value Reference Range Interpretation Comments POC-GLUCOSE METER 125 mg/dL 70-110 H : TESTED A T [facility] 6720 (BEAKER) (test code = [facility], 1538) [address]: Supervisor Post Wave/Techni norah ID = [id number] for JAMIE TA POCT-GLUCOSE [id number] 18:12:00 Test Item Value Reference Range Interpretation Comments POC-GLUCOSE METER 127 mg/dL 70-110 H : TESTED A T [facility] 6720 (BEAKER) (test code = [facility], 1538) [address]: Supervisor Post Wave/Techni norah ID = [id number] for Adrianne Monzon BASIC METABOLIC [id number] 12:24:00 Test Item Value Reference Range Interpretation [...] S NOT APPLICABLE FOR DIALYSIS PATIEN TS. Supervisor Post Wave ID - JAEL [id number] 12:17:00 Test Item Value Reference Range Interpretation Comments MAGNESIUM (BEAKER) (test code = 2.2 mg/dL 1.6-2.6 627) Supervisor Post Wave ID - JAEL ZIMMERMAN GAS, [id number] 11:58:00 Test Item Value Reference Range Interpretation [...] (test code = 1819) 80.0 % POCT-GLUCOSE [id number] 11:48:00 Test Item Value Reference Range Interpretation Comments POC-GLUCOSE METER 132 mg/dL 70-110 H : TESTED A T [facility] 6720 (BEAKER) (test code = [place], 1538) [address]: Supervisor Post Wave/Techni norah ID = [id number] for Adrianne Monzon PLATELET AGGREGATION: FUNCTION [id number] 08:03:00 Test Item Value Reference Range Interpretation Comments [place] [address] Dee This i s a (BEAKER) (test code = MD [facility] rosa isela 3767) (electronic result. signature) Previous result was Dee Campbell MD (electronic signature) on 07/09/2020 at 1019 CDT PLATELET COUNT AGG 179 K/CU MM 150-450 This is a (BEAKER) (test code = etta rosa isela 8735) result. Previous result was 179 K/CU MM on 07/09/2020 at 1019 CDT ADP (BEAKER) (test 47 % 62-100 L This is a code = 4055) corrected result. Previous result was 47 % on 07/09/2020 at 1019 CDT PLATELET RICH 206 k/cu mm 200-300 This is a PLASMA(BEAKER) (test correct ed code = 2134) result. Previous result was 206 k/cu mm on 07/09/2020 at 1019 CDT PLATELET FUNCTION Decreased SCREEN INTERPRETATION aggregation with (BEAKER) (test code = ADP which 4654) indicates platelet dysfunction that may be due to medication effect, uremia, or other platelet function disorders. Clinical correlation is required. Platelet Function Screen results may be falsely low with platelet counts<75,000/cu mm.Supervisor Post Wave ID- [id number] ID - [id number] ID - [id number] due to QC investigation. Spoke to RN ID:[id number] SATURATION, [id number] 07:23:00 Test Item Value Reference Range Interpretation Comments O2 SATURATION (MEASURED) (BEAKER) 65.6 % (test code = 1455) BLOOD GAS, [id number] 07:23:00 Test Item Value Reference Range Interpretation [...] 100.0 % RAD, CHEST, 1 VIEW, NON [id number] 07:09:00Reason for exam:->chest tubes/ vapothermShould this be [...] Arevalo Verified Date/Time: 07/11/2020 07:09:03 Reading Location: [address] Transitional Reading Room POCT-GLUCOSE [id number] 05:36:00 Test Item Value Reference Range Interpretation Comments POC-GLUCOSE METER 122 mg/dL 70-110 H : TESTED A T [facility] 6720 (BEAKER) (test code = [place], 1538) [address]: Supervisor Post Wave/Techni norah ID = [id number] for Lang Gonzalez BASIC METABOLIC [id number] 04:28:00 Test Item Value Reference Range Interpretation [...] S NOT APPLICABLE FOR DIALYSIS PATIEN TS. Supervisor Post Wave ID - YANETH [id number] 04:27:00 Test Item Value Reference Range Interpretation Comments PHOSPHORUS (BEAKER) (test code = 3.1 mg/dL 2.3-4.7 604) Supervisor Post Wave ID - YANETH [id number] 04:27:00 Test Item Value Reference Range Interpretation Comments MAGNESIUM (BEAKER) (test code = 2.0 mg/dL 1.6-2.6 627) Supervisor Post Wave ID - YANETH MCBC (HEMOGRAM ONLY)2020-07-11 04:10:00 [...] (BEAKER) (test code = 413) BLOOD GAS, [id number] 03:31:00 Test Item Value Reference Range Interpretation [...] (test code = 1819) 80.0 % POCT-GLUCOSE [id number] 00:08:00 Test Item Value Reference Range Interpretation Comments POC-GLUCOSE METER 120 mg/dL 70-110 H : TESTED A T [facility] 6720 (BEAKER) (test code = [facility], 1538) [address]: Supervisor Post Wave/Techni norah ID = [id number] for Lang Gonzalez BLOOD GAS, [id number] 18:15:00 Test Item Value Reference Range Interpretation [...] (test code = 1819) 30.0 % POCT-GLUCOSE [id number] 18:10:00 Test Item Value Reference Range Interpretation Comments POC-GLUCOSE METER 117 mg/dL 70-110 H : TESTED A T [facility] 6720 (BEAKER) (test code = [facility] Clifford [facility], 1538) [address]: Supervisor Post Wave/Techni norah ID = [id number] for DOROTHY CASTLE PHEN BASIC METABOLIC [id number] 13:02:00 Test Item Value Reference Range Interpretation [...] S NOT APPLICABLE FOR DIALYSIS PATIEN TS. Supervisor Post Wave ID - JAEL [id number] 13:01:00 Test Item Value Reference Range Interpretation Comments MAGNESIUM (BEAKER) (test code = 2.2 mg/dL 1.6-2.6 627) Supervisor Post Wave ID - JAEL CBLOOD GAS, [id number] 12:41:00 Test Item Value Reference Range Interpretation [...] code = 1819) 30.0 % OXYGEN SATURATION, [id number] 12:38:00 Test Item Value Reference Range Interpretation Comments O2 SATURATION (MEASURED) (BEAKER) 53.6 % (test code = 1455) BLOOD GAS, [id number] 10:04:00 Test Item Value Reference Range Interpretation [...] code = 1819) 40.0 % BLOOD GAS, [id number] 07:40:00 Test Item Value Reference Range Interpretation [...] = 1819) 40.0 % Temp:: 101.9LACTIC ACID, [id number] 06:18:00 Test Item Value Reference Range Interpretation Comments LACTATE BLOOD ARTERIAL (2) 1.0 mmol/L 0.5-2.2 (BEAKER) (test code = 2874) Supervisor Post Wave ID - EDASIBLOOD GAS, [id number] 06:03:00 Test Item Value Reference Range Interpretation [...] (test code = 1819) 60.0 % POCT-GLUCOSE [id number] 06:00:00 Test Item Value Reference Range Interpretation Comments POC-GLUCOSE METER 103 mg/dL 70-110 : TESTED A T [facility] 6720 (BEAKER) (test code = CHRISTINA Horton [facility], 1538) [address]: Supervisor Post Wave/Techni norah ID = [id number] for Lang Gonzalez RAD, CHEST, 1 VIEW, NON [id number] 04:47:00while patient is intubated or has chest tubes.Reason for exam:->Status post CV SurgeryShould thisbe performed at the bedside?->YesFINAL REPORT RAD, CHEST, 1 VIEW, NON DEPT INDICATION: Status post CV Surgery COMPARISON: Prior day's exam FINDINGS: Portable frontal view of the chest. IMPRESSION: Support Lines: Interval repositioning of the right IJ [place]-Jesus Alberto catheter tip overlying the interlobar pulmonary artery. Otherwise unchanged support apparatus. Lungs and pleura: Unchanged airspace and pleural opacities when allowing for decreased lung volumes.. No pneumothorax.Heart and mediastinum: Stable contours. Stable surgical changes.Additional findings: None. Signed: Maddie Ibrahimeport Verified Date/Time: 07/10/2020 04:47:40 BASIC METABOLIC [id number] 04:36:00 Test Item Value Reference Range Interpretation [...] S NOT APPLICABLE FOR DIALYSIS PATIEN TS. Supervisor Post Wave ID - [id number] 04:09:00 Test Item Value Reference Range Interpretation Comments PHOSPHORUS (BEAKER) (test code = 4.5 mg/dL 2.3-4.7 604) Supervisor Post Wave ID - [id number] 04:09:00 Test Item Value Reference Range Interpretation Comments MAGNESIUM (BEAKER) (test code = 2.1 mg/dL 1.6-2.6 627) Supervisor Post Wave ID - EDASILACTIC ACID, [id number] 04:02:00 Test Item Value Reference Range Interpretation Comments LACTATE BLOOD ARTERIAL (2) 1.0 mmol/L 0.5-2.2 (BEAKER) (test code = 2874) Supervisor Post Wave ID - EDASICBC (HEMOGRAM ONLY)2020-07-10 03:51:00 Test [...] (BEAKER) (test code = 413) OXYGEN SATURATION, [id number] 03:46:00 Test Item Value Reference Range Interpretation Comments O2 SATURATION (MEASURED) (BEAKER) 61.3 % (test code = 1455) BLOOD GAS, [id number] 03:45:00 Test Item Value Reference Range Interpretation [...] code = 1819) 60.0 % LACTIC ACID, [id number] 01:27:00 Test Item Value Reference Range Interpretation Comments LACTATE BLOOD ARTERIAL (2) 1.5 mmol/L 0.5-2.2 (BEAKER) (test code = 2874) Supervisor Post Wave ID - KELECHI Jhaveri ID - EDASIBLOOD GAS, [id number] 00:43:00 Test Item Value Reference Range Interpretation [...] (test code = 1819) 60.0 % POCT-GLUCOSE [id number] 00:20:00 Test Item Value Reference Range Interpretation Comments POC-GLUCOSE METER 99 mg/dL 70-110 : TESTED A T [facility] 6720 (BEAKER) (test code = [place], 1538) [address]: Supervisor Post Wave/Techni norah ID = [id number] for Lang Leal BASIC METABOLIC [id number] 23:16:00 Test Item Value Reference Range Interpretation [...] S NOT APPLICABLE FOR DIALYSIS PATIEN TS. Supervisor Post Wave ID - KELECHI [id number] 23:15:00 Test Item Value Reference Range Interpretation Comments PHOSPHORUS (BEAKER) (test code = 4.6 mg/dL 2.3-4.7 604) Supervisor Post Wave ID - KELECHI [id number] 23:15:00 Test Item Value Reference Range Interpretation Comments MAGNESIUM (BEAKER) (test code = 1.7 mg/dL 1.6-2.6 627) Supervisor Post Wave ID - KELECHI LLACTIC ACID, [id number] 23:11:00 Test Item Value Reference Range Interpretation Comments LACTATE BLOOD ARTERIAL (2) 2.6 mmol/L 0.5-2.2 H (BEAKER) (test code = 9574) Supervisor Post Wave ID - KELECHI LCALCIUM, [id number] 23:08:00 Test Item Value Reference Range Interpretation Comments CALCIUM IONIZED (BEAKER) (test 1.05 mmol/L 1.12-1.27 L code = 698) PH, BLOOD (BEAKER) (test code = 7.41 1810) BLOOD GAS, [id number] 23:07:00 Test Item Value Reference Range Interpretation [...] 1819) 60.0 % HGB/HCT (H&H) - STAT [id number] 23:07:00 Test Item Value Reference Range Interpretation Comments HEMOGLOBIN (BEAKER) (test code = 7.3 g/dL 13.0-16.8 L 410) HEMATOCRIT (BEAKER) (test code = 21.0 % 40.0-50.0 L 411) OXYGEN SATURATION, [id number] 23:05:00 Test Item Value Reference Range Interpretation Comments O2 SATURATION (MEASURED) (BEAKER) 66.9 % (test code = 1455) GLUCOSE-STAT [id number] 23:03:00 Test Item Value Reference Range Interpretation Comments GLUCOSE RANDOM (BEAKER) (test code 109 mg/dL 70-110 = 652) SODIUM NA-STAT [id number] 23:03:00 Test Item Value Reference Range Interpretation Comments SODIUM (BEAKER) (test code = 381) 135 meq/L 136-145 L POTASSIUM-STAT [id number] 23:03:00 Test Item Value Reference Range Interpretation Comments POTASSIUM (BEAKER) (test code = 4.0 meq/L 3.6-5.5 379) BLOOD GAS, [id number] 21:47:00 Test Item Value Reference Range Interpretation [...] (BEAKER) (test code = 1819) 60.0 % [id number] 21:13:00 Test Item Value Reference Range Interpretation Comments POTASSIUM (BEAKER) (test code = 4.8 meq/L 3.5-5.1 379) Supervisor Post Wave ID - BSLACTIC ACID, [id number] 19:59:00 Test Item Value Reference Range Interpretation Comments LACTATE BLOOD ARTERIAL (2) 4.8 mmol/L 0.5-2.2 HH (BEAKER) (test code = 2874) Supervisor Post Wave ID - BSHEMOGLOBIN AND [id number] 19:44:00 Test Item Value Reference Range Interpretation Comments HEMOGLOBIN (BEAKER) (test code = 8.4 GM/DL 13.7-17.5 L 410) HEMATOCRIT (BEAKER) (test code = 25.2 % 40.1-51.0 L 411) Supervisor Post Wave ID - 6000POCT-GLUCOSE [id number] 19:38:00 Test Item Value Reference Range Interpretation Comments POC-GLUCOSE METER 147 mg/dL 70-110 H : [facility] 6720 (BEAKER) (test code = CHRISTINA Horton [facility], 1538) [address]: Supervisor Post Wave/Techni norah ID = [id number] for Lang Gonzalez TROPONIN [id number] 18:50:00 Test Item Value Reference Range Interpretation [...] failure, acidosis, acute neurological disease, and persistent tachyarrhythmia.Supervisor Post Wave ID - [id number] 18:40:00 Test Item Value Reference Range Interpretation Comments PHOSPHORUS (BEAKER) (test code = 5.1 mg/dL 2.3-4.7 H 604) Supervisor Post Wave ID - [id number] 18:40:00 Test Item Value Reference Range Interpretation Comments MAGNESIUM (BEAKER) (test code = 1.8 mg/dL 1.6-2.6 627) Supervisor Post Wave ID - BSBASIC METABOLIC [id number] 18:40:00 Test Item Value Reference Range Interpretation [...] S NOT APPLICABLE FOR DIALYSIS PATIEN TS. Supervisor Post Wave ID - BSLACTIC ACID, [id number] 18:36:00 Test Item Value Reference Range Interpretation Comments LACTATE BLOOD ARTERIAL (2) 3.7 mmol/L 0.5-2.2 H (BEAKER) (test code = 2874) Supervisor Post Wave ID - BSBLOOD GAS, [id number] 18:15:00 Test Item Value Reference Range Interpretation [...] (test code = 1819) 50.0 % POCT-GLUCOSE [id number] 18:15:00 Test Item Value Reference Range Interpretation Comments POC-GLUCOSE METER 146 mg/dL 70-110 H : TESTED A T [facility] 6720 (BEAKER) (test code = CHRISTINA Clifford [place], 1538) [address]: Supervisor Post Wave/Techni norah ID = [id number] for JASON LIND CBC W/PLT COUNT & AUTO [id number] 17:39:00 Test Item Value Reference Range Interpretation [...] CONCENTRATION Decreased (CELLAVISION)(BEAKER) (test code = 3438) Supervisor Post Wave ID - [id number] ID - KvngNeli comments: Slide comments:RAD, CHEST, 1 VIEW, NON [id number] 16:41:00Reason for exam:->post cardiothoracic surgery/ettShould this be [...] MDReport Verified Date/Time: 07/09/2020 16:41:23 Reading Location: [facility] C0W Consult Reading Room LACTIC ACID, [id number] 16:20:00 Test Item Value Reference Range Interpretation Comments LACTATE BLOOD 4.1 mmol/L 0.5-2.2 HH Specimen sligh tly ARTERIAL (2) (BEAKER) hemoly zed (test code = 2874) Supervisor Post Wave ID - MAIDA [id number] 16:19:00 Test Item Value Reference Range Interpretation Comments MAGNESIUM (BEAKER) 1.8 mg/dL 1.6-2.6 Specimen slightly (test code = 627) hemolyzed Supervisor Post Wave ID Adam BEY [id number] 16:19:00 Test Item Value Reference Range Interpretation Comments PHOSPHORUS (BEAKER) 5.0 mg/dL 2.3-4.7 H Specimen slightly (test code = 604) hemolyzed Supervisor Post Wave ID Adam BEY FBASIC METABOLIC [id number] 16:19:00 Test Item Value Reference Range Interpretation [...] S NOT APPLICABLE FOR DIALYSIS PATIEN TS. Supervisor Post Wave ID Adam BEY FCBC W/PLT COUNT & AUTO [id number] 16:15:00 Test Item Value Reference Range Interpretation [...] WBC 0-0 (BEAKER) (test code = 413) [id number] 16:07:00 Test Item Value Reference Range Interpretation Comments FIBRINOGEN LEVEL (BEAKER) (test 330 mg/dl 225-434 code = 658) [id number] 16:07:00 Test Item Value Reference Range Interpretation Comments PARTIAL THROMBOPLASTIN TIME 32.9 seconds 22.5-36.0 (BEAKER) (test code = 760) PROTHROMBIN [id number] 16:06:00 Test Item Value Reference Range Interpretation [...] for patients wiht mechanical heart valves.OXYGEN SATURATION, [id number] 15:52:00 Test Item Value Reference Range Interpretation Comments O2 SATURATION (MEASURED) (BEAKER) 78.3 % (test code = 1455) CALCIUM, [id number] 15:51:00 Test Item Value Reference Range Interpretation Comments CALCIUM IONIZED (BEAKER) (test 1.13 mmol/L 1.12-1.27 code = 698) PH, BLOOD (BEAKER) (test code = 7.31 1810) BLOOD GAS, [id number] 15:50:00 Test Item Value Reference Range Interpretation [...] (test code = 1819) 70.0 % GLUCOSE-STAT [id number] 15:50:00 Test Item Value Reference Range Interpretation Comments GLUCOSE RANDOM (BEAKER) (test code 151 mg/dL 70-110 H = 652) HGB/HCT (H&H) - STAT [id number] 15:50:00 Test Item Value Reference Range Interpretation Comments HEMOGLOBIN (BEAKER) (test code = 9.1 g/dL 13.0-16.8 L 410) HEMATOCRIT (BEAKER) (test code = 27.0 % 40.0-50.0 L 411) SODIUM NA-STAT [id number] 15:49:00 Test Item Value Reference Range Interpretation Comments SODIUM (BEAKER) (test code = 381) 135 meq/L 136-145 L POTASSIUM-STAT [id number] 15:49:00 Test Item Value Reference Range Interpretation Comments POTASSIUM (BEAKER) (test code = 4.9 meq/L 3.6-5.5 379) [id number] 15:22:00 Test Item Value Reference Range Interpretation Comments ACTIVATED CLOTTING TIME 120 sec : 74 -137 seconds, (BEAKER) (test code = Baseli ne: TESTED AT 441) [facility] 6720 [facility] [place], [address] 30: Supervisor Post Wave/Techni norah ID = [id number] for CA STRO, JORDYN [id number] 15:22:00 Test Item Value Reference Range Interpretation Comments ACTIVATED CLOTTING TIME 499 sec : 74 -137 seconds, (BEAKER) (test code = Baseli ne: TESTED AT 441) [address], [facility] 30: Supervisor Post Wave/Techni norah ID = [id number] for CA STRO, JORDYN [id number] 15:22:00 Test Item Value Reference Range Interpretation Comments ACTIVATED CLOTTING TIME 422 sec : 74 -137 seconds, (BEAKER) (test code = Baseli ne: TESTED AT 441) [address], [facility] 30: Supervisor Post Wave/Techni norah ID = [id number] for CA STRO, JORDYN [id number] 15:22:00 Test Item Value Reference Range Interpretation Comments ACTIVATED CLOTTING TIME 461 sec : 74 -137 seconds, (BEAKER) (test code = Baseli ne: TESTED AT 441) [address], [facility] 30: Supervisor Post Wave/Techni norah ID = [id number] for CA STRO, JORDYN [id number] 15:22:00 Test Item Value Reference Range Interpretation Comments ACTIVATED CLOTTING TIME 813 sec : 74 -137 seconds, (BEAKER) (test code = Baseli ne: TESTED AT 441) [address], [facility] 30: Supervisor Post Wave/Techni norah ID = [id number] for CA STRO, JORDYN [id number] 15:22:00 Test Item Value Reference Range Interpretation Comments ACTIVATED CLOTTING TIME 599 sec : 74 -137 seconds, (BEAKER) (test code = Baseli ne: TESTED AT 441) [address], [facility] 30: Supervisor Post Wave/Techni norah ID = [id number] for CA STRO, JORDYN [id number] 15:21:00 Test Item Value Reference Range Interpretation Comments ACTIVATED CLOTTING TIME 599 sec : 74 -137 seconds, (BEAKER) (test code = Baseli ne: TESTED AT 441) [address], [facility] 30: Supervisor Post Wave/Techni norah ID = [id number] for CA STRO, JORDYN [id number] 15:21:00 Test Item Value Reference Range Interpretation Comments ACTIVATED CLOTTING TIME 131 sec : 74 -137 seconds, (BEAKER) (test code = Bruce ne: TESTED AT 441) [facility] 67[address] [place], [address] 30: Supervisor Post Wave/Techni norah ID = [id number] for CA STRO, JORDYN PLATELET [id number] 14:30:00 Test Item Value Reference Range Interpretation Comments PLATELET COUNT (BEAKER) (test 165 K/CU MM 150-450 code = 756) Supervisor Post Wave ID - 6000BLOOD GAS, [id number] 14:24:00 Test Item Value Reference Range Interpretation [...] code = 1819) 95.0 % SODIUM NA-STAT [id number] 14:24:00 Test Item Value Reference Range Interpretation Comments SODIUM (BEAKER) (test code = 381) 133 meq/L 136-145 L GLUCOSE-STAT [id number] 14:24:00 Test Item Value Reference Range Interpretation Comments GLUCOSE RANDOM (BEAKER) (test code 182 mg/dL 70-110 H = 652) HGB/HCT (H&H) - STAT [id number] 14:24:00 Test Item Value Reference Range Interpretation Comments HEMOGLOBIN (BEAKER) (test code = 8.6 g/dL 13.0-16.8 L 410) HEMATOCRIT (BEAKER) (test code = 25.0 % 40.0-50.0 L 411) CALCIUM, [id number] 14:24:00 Test Item Value Reference Range Interpretation Comments CALCIUM IONIZED (BEAKER) (test 1.00 mmol/L 1.12-1.27 L code = 698) PH, BLOOD (BEAKER) (test code = 7.31 1810) POTASSIUM-STAT [id number] 14:23:00 Test Item Value Reference Range Interpretation Comments POTASSIUM (BEAKER) (test code = 5.0 meq/L 3.6-5.5 379) POTASSIUM-STAT [id number] 13:10:00 Test Item Value Reference Range Interpretation Comments POTASSIUM (BEAKER) 6.0 meq/L 3.6-5.5 HH SPECIMEN NOT HEMOLYZED (test code = 379) BLOOD GAS, [id number] 13:09:00 Test Item Value Reference Range Interpretation [...] code = 1819) 80.0 % SODIUM NA-STAT [id number] 13:09:00 Test Item Value Reference Range Interpretation Comments SODIUM (BEAKER) (test code = 381) 133 meq/L 136-145 L GLUCOSE-STAT [id number] 13:09:00 Test Item Value Reference Range Interpretation Comments GLUCOSE RANDOM (BEAKER) (test code 180 mg/dL 70-110 H = 652) HGB/HCT (H&H) - STAT [id number] 13:09:00 Test Item Value Reference Range Interpretation Comments HEMOGLOBIN (BEAKER) (test code = 7.7 g/dL 13.0-16.8 L 410) HEMATOCRIT (BEAKER) (test code = 23.0 % 40.0-50.0 L 411) SODIUM NA-STAT [id number] 12:50:00 Test Item Value Reference Range Interpretation Comments SODIUM (BEAKER) (test code = 381) 131 meq/L 136-145 L GLUCOSE-STAT [id number] 12:50:00 Test Item Value Reference Range Interpretation Comments GLUCOSE RANDOM (BEAKER) (test code 192 mg/dL 70-110 H = 652) HGB/HCT (H&H) - STAT [id number] 12:50:00 Test Item Value Reference Range Interpretation Comments HEMOGLOBIN (BEAKER) (test code = 8.4 g/dL 13.0-16.8 L 410) HEMATOCRIT (BEAKER) (test code = 25.0 % 40.0-50.0 L 411) POTASSIUM-STAT [id number] 12:50:00 Test Item Value Reference Range Interpretation Comments POTASSIUM (BEAKER) 6.1 meq/L 3.6-5.5 HH SPECIMEN NOT HEMOLYZED (test code = 379) BLOOD GAS, [id number] 12:49:00 Test Item Value Reference Range Interpretation [...] (test code = 1819) 85.0 % POTASSIUM-STAT [id number] 12:16:00 Test Item Value Reference Range Interpretation Comments POTASSIUM (BEAKER) 6.1 meq/L 3.6-5.5 HH SPECIMEN NOT HEMOLYZED (test code = 379) BLOOD GAS, [id number] 12:12:00 Test Item Value Reference Range Interpretation [...] code = 1819) 75.0 % SODIUM NA-STAT [id number] 12:12:00 Test Item Value Reference Range Interpretation Comments SODIUM (BEAKER) (test code = 381) 129 meq/L 136-145 L GLUCOSE-STAT [id number] 12:12:00 Test Item Value Reference Range Interpretation Comments GLUCOSE RANDOM (BEAKER) (test code 213 mg/dL 70-110 H = 652) HGB/HCT (H&H) - STAT [id number] 12:12:00 Test Item Value Reference Range Interpretation Comments HEMOGLOBIN (BEAKER) (test code = 7.7 g/dL 13.0-16.8 L 410) HEMATOCRIT (BEAKER) (test code = 23.0 % 40.0-50.0 L 411) POTASSIUM-STAT [id number] 11:44:00 Test Item Value Reference Range Interpretation Comments POTASSIUM (BEAKER) (test code = 6.0 meq/L 3.6-5.5 HH 379) BLOOD GAS, [id number] 11:43:00 Test Item Value Reference Range Interpretation [...] code = 1819) 75.0 % SODIUM NA-STAT [id number] 11:43:00 Test Item Value Reference Range Interpretation Comments SODIUM (BEAKER) (test code = 381) 126 meq/L 136-145 L GLUCOSE-STAT [id number] 11:43:00 Test Item Value Reference Range Interpretation Comments GLUCOSE RANDOM (BEAKER) (test code 204 mg/dL 70-110 H = 652) HGB/HCT (H&H) - STAT [id number] 11:43:00 Test Item Value Reference Range Interpretation Comments HEMOGLOBIN (BEAKER) (test code = 8.0 g/dL 13.0-16.8 L 410) HEMATOCRIT (BEAKER) (test code = 24.0 % 40.0-50.0 L 411) BLOOD GAS, [id number] 11:10:00 Test Item Value Reference Range Interpretation [...] (test code = 1819) 80.0 % CALCIUM, [id number] 09:03:00 Test Item Value Reference Range Interpretation Comments CALCIUM IONIZED (BEAKER) (test 1.11 mmol/L 1.12-1.27 L code = 698) PH, BLOOD (BEAKER) (test code = 7.42 1810) BLOOD GAS, [id number] 09:03:00 Test Item Value Reference Range Interpretation [...] code = 1819) 50.0 % SODIUM NA-STAT [id number] 09:03:00 Test Item Value Reference Range Interpretation Comments SODIUM (BEAKER) (test code = 381) 130 meq/L 136-145 L HGB/HCT (H&H) - STAT [id number] 09:03:00 Test Item Value Reference Range Interpretation Comments HEMOGLOBIN (BEAKER) (test code = 11.3 g/dL 13.0-16.8 L 410) HEMATOCRIT (BEAKER) (test code = 33.0 % 40.0-50.0 L 411) GLUCOSE-STAT [id number] 09:02:00 Test Item Value Reference Range Interpretation Comments GLUCOSE RANDOM (BEAKER) (test code 105 mg/dL 70-110 = 652) POTASSIUM-STAT [id number] 09:02:00 Test Item Value Reference Range Interpretation Comments POTASSIUM (BEAKER) (test code = 4.2 meq/L 3.6-5.5 379) [id number] 05:08:00 Test Item Value Reference Range Interpretation Comments MAGNESIUM (BEAKER) (test code = 2.0 mg/dL 1.6-2.6 627) Supervisor Post Wave ID - EDASIBASIC METABOLIC [id number] 05:08:00 Test Item Value Reference Range Interpretation [...] S NOT APPLICABLE FOR DIALYSIS PATIEN TS. Supervisor Post Wave ID - [id number] 04:57:00 Test Item Value Reference Range Interpretation Comments PARTIAL THROMBOPLASTIN TIME 65.5 seconds 22.5-36.0 H (BEAKER) (test code = 760) CBC W/PLT COUNT & AUTO [id number] 04:36:00 Test Item Value Reference Range Interpretation [...] PERCENT (BEAKER) (test code = 2801) SARS-COV2/RT-PCR ([facility])2020-07-08 19:04:00 Test Item Value Reference Range Interpretation Comments SARS-COV2/RT-PCR (test code Negative Not Detected, Negative, = [id number]) See external report for linked test SARS-COV-2 PERFORMING [facility] [facility] (test code = 8846737) Negative results do not preclude SARS-CoV-2 infection [...] of the Act.Fact Sheet for Healthcare Pro viders:https://www.[employer]/Documents/Xpert%20Xpress%20SARS%20CoV-2/Fact%20Sh eets/302-3802%50SHVO-ZOZ-9%20HEALTHCARE%20PROVIDERS%20FACT%20SHEET.pdfFact Sheet for Healthcare Patients:https://www.[employer]/Documents/Xpert%20Xpress%20SARS%20CoV-2/Fact%20Sheets/302-3801%20SARS-COV -2%20PATIENT%20FACT%20SHEET.pdfPerforming Laboratory:[facility].[place], [place] [address]JEUYCXSY AGGREGATION: FUNCTION SCREEN 2020-07-08 10:13:00 Test Item Value Reference Range Interpretation Comments [id number] Bashir Orozco MD (BEAKER) (test code = [...] is (BEAKER) (test code = <200,000/mm3, an 001118) abnormal result may be due to a low platelet count rather than a true platelet dysfunction. Platelet Function Screen results may be falsely low with platelet counts<75,000/cu mm.Supervisor Post Wave ID- [id number] 03:30:00 Test Item Value Reference Range Interpretation Comments PARTIAL THROMBOPLASTIN TIME 66.6 seconds 22.5-36.0 H (BEAKER) (test code = 760) [id number] 03:30:00 Test Item Value Reference Range Interpretation Comments MAGNESIUM (BEAKER) (test code = 2.1 mg/dL 1.6-2.6 627) Supervisor Post Wave ID - EDASIBASIC METABOLIC [id number] 03:30:00 Test Item Value Reference Range Interpretation [...] S NOT APPLICABLE FOR DIALYSIS PATIEN TS. Supervisor Post Wave ID - EDASICBC W/PLT COUNT & AUTO [id number] 03:09:00 Test Item Value Reference Range Interpretation [...] PERCENT (BEAKER) (test code = 2801) HEMOGLOBIN [id number] 10:55:00 Test Item Value Reference Range Interpretation Comments HEMOGLOBIN A1C (BEAKER) (test code = 5.9 % 4.3-6.1 368) [id number] 05:58:00 Test Item Value Reference Range Interpretation Comments MAGNESIUM (BEAKER) 2.0 mg/dL 1.6-2.6 Specimen slightly (test code = 627) hemolyzed Supervisor Post Wave REESE - KELECHI LBASIC METABOLIC [id number] 05:58:00 Test Item Value Reference Range Interpretation [...] S NOT APPLICABLE FOR DIALYSIS PATIEN TS. Supervisor Post Wave ID - KELECHI [id number] 05:53:00 Test Item Value Reference Range Interpretation Comments PARTIAL THROMBOPLASTIN TIME 74.7 seconds 22.5-36.0 H (BEAKER) (test code = 760) [id number] 22:50:00 Test Item Value Reference Range Interpretation Comments PARTIAL THROMBOPLASTIN TIME 70.0 seconds 22.5-36.0 H (BEAKER) (test code = 760) PROTHROMBIN [id number] 22:49:00 Test Item Value Reference Range Interpretation [...] INR is2.5-3.5 for patients wiht mechanical heart valves.[id number] 22:42:00 Test Item Value Reference Range Interpretation Comments MAGNESIUM (BEAKER) (test code = 2.0 mg/dL 1.6-2.6 627) Supervisor Post Wave ID - DBCOMPREHENSIVE METABOLIC [id number] 22:42:00 Test Item Value Reference Range Interpretation [...] S NOT APPLICABLE FOR DIALYSIS PATIEN TS. Supervisor Post Wave ID - DBLIPID [id number] 22:42:00 Test Item Value Reference Range Interpretation [...] Borderline 130-159 High 160-189 Very High >=190 Supervisor Post Wave ID - DBCBC W/PLT COUNT & AUTO [id number] 22:20:00 Test Item Value Reference Range Interpretation [...] 0-1 PERCENT (BEAKER) (test code = 2801) [id number] 05:30:00 Test Item Value Reference Range Interpretation Comments MAGNESIUM (BEAKER) (test code = 2.0 mg/dL 1.6-2.6 627) Supervisor Post Wave ID - YANETH MBASIC METABOLIC [id number] 05:30:00 Test Item Value Reference Range Interpretation [...] S NOT APPLICABLE FOR DIALYSIS PATIEN TS. Supervisor Post Wave ID - YANTEH [id number] 05:04:00 Test Item Value Reference Range Interpretation [...] mechanical heart valves.CBC W/PLT COUNT & AUTO [id number] 04:50:00 Test Item Value Reference Range Interpretation [...] (test code = 2801) PLATELET AGGREGATION: FUNCTION [id number] 09:19:00 Test Item Value Reference Range Interpretation Comments [id number] Dee Campbell, (BEAKER) (test code = MD (electronic 7277) signature) PLATELET COUNT AGG 192 K/CU MM 150-450 (BEAKER) (test code = 2656) ADP (BEAKER) (test code 21 % 62-100 L = 4654) PLATELET RICH 278 k/cu mm 200-300 PLASMA(BEAKER) (test code = 2134) PLATELET FUNCTION SCREEN Decreased aggregation INTERPRETATION (BEAKER) with ADP which (test code = 7895) indicates platelet dysfunction that may be due to medication effect, uremia, or other platelet function disorders. Clinical correlation is required. Platelet Function Screen results may be falsely low with platelet counts<75,000/cu mm.Supervisor Post Wave ID- [id number] 05:51:00 Test Item Value Reference Range Interpretation Comments MAGNESIUM (BEAKER) (test code = 1.9 mg/dL 1.6-2.6 627) Supervisor Post Wave ID - EDASIBASIC METABOLIC [id number] 05:51:00 Test Item Value Reference Range Interpretation [...] S NOT APPLICABLE FOR DIALYSIS PATIEN TS. Supervisor Post Wave ID - [id number] 05:44:00 Test Item Value Reference Range Interpretation Comments PARTIAL THROMBOPLASTIN TIME 77.6 seconds 22.5-36.0 H (BEAKER) (test code = 760) CBC W/PLT COUNT & AUTO [id number] 05:37:00 Test Item Value Reference Range Interpretation [...] 0-1 PERCENT (BEAKER) (test code = 2801) [id number] 22:27:00 Test Item Value Reference Range Interpretation Comments PARTIAL THROMBOPLASTIN TIME 72.6 seconds 22.5-36.0 H (BEAKER) (test code = 760) [id number] 12:16:00 Test Item Value Reference Range Interpretation Comments ACTIVATED CLOTTING TIME 263 sec : 74 -137 seconds, (BEAKER) (test code = Baseli ne: TESTED AT 441) [facility] [address] [facility], [facility] 30: Supervisor Post Wave/Techni norah ID = [id number] for FILI VALDEZ [id number] 04:38:00 Test Item Value Reference Range Interpretation Comments MAGNESIUM (BEAKER) 2.0 mg/dL 1.6-2.6 Specimen slightly (test code = 627) hemolyzed Supervisor Post Wave ID - EDASIBASIC METABOLIC [id number] 04:38:00 Test Item Value Reference Range Interpretation [...] S NOT APPLICABLE FOR DIALYSIS PATIEN TS. Supervisor Post Wave ID - [id number] 04:18:00 Test Item Value Reference Range Interpretation Comments PARTIAL THROMBOPLASTIN TIME 90.4 seconds 22.5-36.0 H (BEAKER) (test code = 760) CBC W/PLT COUNT & AUTO [id number] 04:08:00 Test Item Value Reference Range Interpretation [...] 0-1 PERCENT (BEAKER) (test code = 2801) [id number] 17:48:00 Test Item Value Reference Range Interpretation Comments MAGNESIUM (BEAKER) 2.2 mg/dL 1.6-2.6 Specimen moderately (test code = 627) hemolyzed Supervisor Post Wave ID - [id number] 17:48:00 Test Item Value Reference Range Interpretation Comments POTASSIUM (BEAKER) 3.7 meq/L 3.5-5.1 Specimen moderately (test code = 379) hemolyzed Supervisor Post Wave ID - [id number] 17:39:00 Test Item Value Reference Range Interpretation Comments PARTIAL THROMBOPLASTIN TIME 51.1 seconds 22.5-36.0 H (BEAKER) (test code = 760) PET/CT, CARDIAC PERF REST AND [id number] 14:30:00Reason for exam:->CAD FINAL REPORT PROCEDURE: MYOCARDIAL PERFUSION PET IMAGING (Rest/Stress)CPT CODE: 62402 INDICATION: CAD CARDIOVASCULAR PROFILE:CAD History: CADSymptoms: Chest [...] Gomez Verified Date/Time: 07/03/2020 14:30:46 Reading Location: [address] Reading Room [id number] 12:47:00 Test Item Value Reference Range Interpretation Comments MAGNESIUM (BEAKER) 2.4 mg/dL 1.6-2.6 Specimen slightly (test code = 627) hemolyzed Supervisor Post Wave ID - [id number] 12:47:00 Test Item Value Reference Range Interpretation Comments POTASSIUM (BEAKER) 3.8 meq/L 3.5-5.1 Specimen slightly (test code = 379) hemolyzed Supervisor Post Wave ID - ROSIANGTROPONIN [id number] 10:37:00 Test Item Value Reference Range Interpretation Comments TROPONIN I (BEAKER) (test code = 1.50 ng/mL 0.00-0.03 HH 397) Troponin I (TnI) [...] failure, acidosis, acute neurological disease, and persistent tachyarrhythmia.Supervisor Post Wave ID - [id number] 10:25:00 Test Item Value Reference Range Interpretation Comments PARTIAL THROMBOPLASTIN TIME 45.7 seconds 22.5-36.0 H (BEAKER) (test code = 760) SARS-COV2/RT-PCR ([facility])2020-07-03 08:54:00 Test Item Value Reference Range Interpretation Comments SARS-COV2/RT-PCR (test code Negative Not Detected, Negative, = 5384874) See external report for linked test SARS-COV-2 PERFORMING LAB [facility] (test code = 6938031) Negative results do not preclude SARS-CoV-2 infection [...] of the Act.Fact Sheet for Healthcare Pro viders:https://www.[employer]/Documents/Xpert%20Xpress%20SARS%20CoV-2/Fact%20Sh eets/302-3802%13TYVZ-DDC-2%20HEALTHCARE%20PROVIDERS%20FACT%20SHEET.pdfFact Sheet for Healthcare Patients:https://www.[employer]/Documents/Xpert%20Xpress%20SARS%20CoV-2/Fact%20Sheets/3023801%20SARS-COV -2%20PATIENT%20FACT%20SHEET.pdfPerforming Laboratory:[facility] [place], [place] [id number] 04:16:00 Test Item Value Reference Range Interpretation [...] failure, acidosis, acute neurological disease, and persistent tachyarrhythmia.Supervisor Post Wave ID - [id number] 04:07:00 Test Item Value Reference Range Interpretation Comments MAGNESIUM (BEAKER) (test code = 1.9 mg/dL 1.6-2.6 627) Supervisor Post Wave ID - EDASIBASIC METABOLIC [id number] 04:07:00 Test Item Value Reference Range Interpretation [...] S NOT APPLICABLE FOR DIALYSIS PATIEN TS. Supervisor Post Wave ID - EDASILACTIC ACID, [id number] 04:00:00 Test Item Value Reference Range Interpretation Comments LACTATE BLOOD VENOUS (2) (BEAKER) 1.93 mmol/L 0.50-2.20 (test code = 2872) Supervisor Post Wave ID - EDASIBLOOD GAS, [id number] 03:56:00 Test Item Value Reference Range Interpretation [...] (BEAKER) (test code = 1819) 21.0 % [id number] 03:52:00 Test Item Value Reference Range Interpretation Comments PARTIAL THROMBOPLASTIN TIME 39.8 seconds 22.5-36.0 H (BEAKER) (test code = 760) CBC W/PLT COUNT & AUTO [id number] 03:42:00 Test Item Value Reference Range Interpretation [...] = 2801) RAD, CHEST, 1 VIEW, NON [id number] 23:05:00Reason for exam:- >dyspneaShould this be performed [...] Raglandort Verified Date/Time: 07/02/2020 23:05:36 LACTIC ACID, [id number] 22:59:00 Test Item Value Reference Range Interpretation Comments LACTATE BLOOD VENOUS 3.11 mmol/L 0.50-2.20 H Specime n slightly (2) (BEAKER) (test hemolyzed code = 2872) Supervisor Post Wave ID - PIAYA [id number] 22:39:00 Test Item Value Reference Range Interpretation Comments MAGNESIUM (BEAKER) (test code = 1.7 mg/dL 1.6-2.6 627) Supervisor Post Wave ID - DBHEMOGLOBIN [id number] 22:14:00 Test Item Value Reference Range Interpretation Comments HEMOGLOBIN A1C (BEAKER) (test code = 5.8 % 4.3-6.1 368) LACTIC ACID, [id number] 22:00:00 Test Item Value Reference Range Interpretation Comments LACTATE BLOOD VENOUS 3.07 mmol/L 0.50-2.20 H Specime n slightly (2) (BEAKER) (test hemolyzed code = 2872) Supervisor Post Wave ID - DBLIPID [id number] 21:57:00 Test Item Value Reference Range Interpretation [...] Borderline 130-159 High 160-189 Very High >=190 Supervisor Post Wave ID - ELICEOHEPATIC FUNCTION [id number] 21:57:00 Test Item Value Reference Range Interpretation [...] (test code = 40 U/L 6-55 347) Supervisor Post Wave ID - JAEL COperator ID - [id number] 21:49:00 Test Item Value Reference Range Interpretation Comments THYROID STIMULATING HORMONE 1.364 uIU/mL 0.350-4.940 (BEAKER) (test code = 772) Supervisor Post Wave ID - JAEL CTROPONIN [id number] 21:41:00 Test Item Value Reference Range Interpretation [...] failure, acidosis, acute neurological disease, and persistent tachyarrhythmia.Supervisor Post Wave ID - JAEL CB-TYPE NATRIURETIC FACTOR (BNP)2020-07-02 21:36:00 Test Item Value Reference Range Interpretation Comments B-TYPE NATRIURETIC PEPTIDE (BEAKER) 68 pg/mL 0-100 (test code = 700) Supervisor Post Wave ID - JAEL CBASIC METABOLIC [id number] 21:26:00 Test Item Value Reference Range Interpretation [...] S NOT APPLICABLE FOR DIALYSIS PATIEN TS. Supervisor Post Wave ID - OCT [id number] 21:25:00 Test Item Value Reference Range Interpretation [...] for patients wiht mechanical heart valves.LACTIC ACID, [id number] 21:24:00 Test Item Value Reference Range Interpretation Comments LACTATE BLOOD VENOUS (2) (BEAKER) 3.93 mmol/L 0.50-2.20 H (test code = 1572) Supervisor Post Wave ID - JAEL CPROTHROMBIN [id number] 21:22:00 Test Item Value Reference Range Interpretation [...] mechanical heart valves.CBC W/PLT COUNT & AUTO [id number] 21:10:00 Test Item Value Reference Range Interpretation [...] PERCENT (BEAKER) (test code = 2801) TISSUE [id number] 13:46:00Surgical Pathology Report Case: [id number] Authorizing Provider: Ernst Goyal Collected: 10/12/2019 1440 Lis Cuellar MD [facility] Received: 10/13/2019 0810 Perioperative Services Pathologist: Sabi John MD Specimen: Condyle,Right Knee CONDYLES, RIGHT KNEE, ARTHROPLASTY: - DEGENERATIVE CHANGES CONSISTENT WITH OSTEOARTHRITIS - SYNOVIUM WITH REACTIVE CHANGES Signing Pathologist Direct Phone Line: [phone] signed by Sabi John MD on 10/19/2019 at 1:46 [id number] diagnosis: osteoarthritis or right knee, unspecified osteoarthritis [...] measuring up to 0.2 cm thic k. Visual Inspector sections are submitted as A1-A3 following decalcification. PA/pl Performed.POCT-GLUCOSE [id number] 07:23:00 Test Item Value Reference Range Interpretation Comments POC-GLUCOSE METER 145 mg/dL 70-110 H : TESTED A T [facility] 7200 (BEAKER) (test code [place] E BLDG A, = 1538) [place] [address] 0: Supervisor Post Wave/Techni norah ID = [id number] for Jennifer Woodruff BASIC METABOLIC [id number] 06:29:00 Test Item Value Reference Range Interpretation [...] APPLICABLE FOR DIALYSIS PATIEN TS. HEMOGLOBIN AND [id number] 06:16:00 Test Item Value Reference Range Interpretation Comments HEMOGLOBIN (BEAKER) (test code = 12.1 GM/DL 13.7-17.5 L 410) HEMATOCRIT (BEAKER) (test code = 36.7 % 40.1-51.0 L 411) POCT-GLUCOSE [id number] 21:12:00 Test Item Value Reference Range Interpretation Comments POC-GLUCOSE METER 195 mg/dL 70-110 H : TESTED A T [facility] 7200 (BEAKER) (test code [place] E BLDG A, = 1538) [place] [address] 0: Supervisor Post Wave/Techni norah ID = [id number] for INESSA SWAIN RAD, KNEE, 1 OR 2 VIEWS, [id number] 16:44:00Reason for exam:->s/p r tkaShould this be performed at the bedside?->YesFINAL REPORT COMPARISON: None. FINDINGS: 2 views of the right knee are submitted. Patient is presumably status post recent right knee replacement. There is anatomic alignment of the surgical prosthesis. There is postoperative gas in the surrounding soft tissues . Signed: Satya Huff MDReport Verified Date/Time: 10/12/2019 16:44:57 Reading Location: [facility] Radiology Reading Room XR KNEE RIGHT AP, LAT, BOTH [id number] 19:06:09For result, please reference physician's note on the corresponding date.[facility]
[2022-02-08] MEDS ORDERED: ONDANSETRON 4 MG/2 ML VIAL ONE (09:06)
[2022-02-08] MEDS ORDERED: MORPHINE 4 MG/ML SYR ONE (09:06)
[2022-02-08] MEDS ORDERED: HYDROMORPHONE HCL 1 MG/ML INJ ONE ×2 (09:08→11:58)
[2022-02-08 09:14] LABS: Absolute Lymphocytes (CBC) 0.8 K/uL (0.7-4.9); Hematocrit 36.9 % (39.6-49.0); Lymphocytes % 7.6 % (15.3-44.8); MPV 8.6 fL (7.6-11.3); RBC Red Blood Cell Count 4.08 M/uL (4.33-5.43)
[2022-02-08 09:21] LABS: Protime INR 1.08
[2022-02-08 09:36] LABS: Albumin 3.1 g/dL (3.4-5.0); Bilirubin Direct 0.3 mg/dL (0-0.2); Magnesium 2.2 mg/dL (1.8-2.4); Potassium 3.9 mmol/L (3.5-5.1); Troponin High Sensitivity 11.6 pg/mL (<58.9)
--- NOTE | 2022-02-08 09:40 | EDPHYS ---
Physician Documentation [facility] Name: Sergey Emanuel Jr Age: 61 yrs Sex: Male : 1960 Arrival Date: 02/08/2022 Time: 08:29 Bed 13 Private MD: ZE Physician Suraj Harden HPI: 02/08 09:26 This 61 yrs old Male presents to ER via EMS with complaints of RIGHT HIP maria de jesus FRACTURE, FALL. 09:26 The patient or guardian reports decreased range of motion, pain. that occurred maria de jesus sustained from a fall, the right lower extremity is shortened, The patient is not able to ambulate. Patient is not able to bear weight. There is no radiation of the patient's discomfort. The complaints affect the right hip and right upper thigh. Onset: The symptoms/episode began/occurred 1 day(s) ago. Modifying factors: The symptoms are alleviated by nothing, remaining still, the symptoms are aggravated by any movement, external rotation, flexion, internal rotation, weight bearing. Associated signs and symptoms: Loss of consciousness: the patient experienced no loss of consciousness. Severity of symptoms: At their worst the symptoms were moderate, in the emergency department the symptoms are unchanged. The patient has experienced similar episodes in the past, a few times. Historical: - Allergies: 08:36 Brilinta; ss - PMHx: 08:36 CHF; IRON DEFICIENCY ANEMIA; Myocardial infarction; x 4; ss - PSHx: 08:36 triple bypass; ss - Immunization history:: Client reports having NOT received the Covid vaccine. - Social history:: Smoking status: Patient denies any tobacco usage or history of. - Family history:: not pertinent. ROS: 09:26 Constitutional: Negative for fever, chills, and weight loss, Eyes: Negative for injury, maria de jesus pain, redness, and discharge, ENT: Negative for injury, pain, and discharge, Neck: Negative for injury, pain, and swelling, Cardiovascular: Negative for chest pain, palpitations, and edema, Respiratory: Negative for shortness of breath, cough, wheezing, and pleuritic chest pain, Abdomen/GI: Negative for abdominal pain, nausea, vomiting, diarrhea, and constipation, Back: Negative for injury and pain, : Negative for injury, bleeding, discharge, and swelling, Skin: Negative for injury, rash, and discoloration, Neuro: Negative for headache, weakness, numbness, tingling, and seizure, Psych: Negative for depression, anxiety, suicide ideation, homicidal ideation, and hallucinations, Allergy/Immunology: Negative for hives, rash, and allergies, Endocrine: Negative for neck swelling, polydipsia, polyuria, polyphagia, and marked weight changes, Hematologic/Lymphatic: Negative for swollen nodes, abnormal bleeding, and unusual bruising. 09:26 : Positive for 09:26 MS/extremity: Positive for decreased range of motion, pain, tenderness, of the right hip and right upper thigh. Exam: 09:26 Constitutional: This is a well developed, well nourished patient who is awake, alert, maria de jesus and in no acute distress. Head/Face: Normocephalic, atraumatic. Eyes: Pupils equal round and reactive to light, extra-ocular motions intact. Lids and lashes normal. Conjunctiva and sclera are non-icteric and not injected. Cornea within normal limits. Periorbital areas with no swelling, redness, or edema. ENT: Nares patent. No nasal discharge, no septal abnormalities noted. Tympanic membranes are normal and external auditory canals are clear. Oropharynx with no redness, swelling, or masses, exudates, or evidence of obstruction, uvula midline. Mucous membranes moist. Neck: Trachea midline, no thyromegaly or masses palpated, and no cervical lymphadenopathy. Supple, full range of motion without nuchal rigidity, or vertebral point tenderness. No Meningismus. Chest/axilla: Normal chest wall appearance and motion. Nontender with no deformity. No lesions are appreciated. Cardiovascular: Regular rate and rhythm with a normal S1 and S2. No gallops, murmurs, or rubs. Normal PMI, no JVD. No pulse deficits. Respiratory: Lungs have equal breath sounds bilaterally, clear to auscultation and percussion. No rales, rhonchi or wheezes noted. No increased work of breathing, no retractions or nasal flaring. Abdomen/GI: Soft, non-tender, with normal bowel sounds. No distension or tympany. No guarding or rebound. No evidence of tenderness throughout. Back: No spinal tenderness. No costovertebral tenderness. Full range of motion. Male : Normal genitalia with no discharge or lesions. Skin: Warm, dry with normal turgor. Normal color with no rashes, no lesions, and no evidence of cellulitis. Neuro: Awake and alert, GCS 15, oriented to person, place, time, and situation. Cranial nerves II-XII grossly intact. Motor strength 5/5 in all extremities. Sensory grossly intact. Cerebellar exam normal. Normal gait. Psych: Awake, alert, with orientation to person, place and time. Behavior, mood, and affect are within normal limits. 09:26 Musculoskeletal/extremity: Extremities: noted in the right hip, right inner thigh and right upper thigh: ROM: limited active range of motion due to pain, limited passive range of motion due to pain, Circulation is intact in all extremities. Sensation intact. Compartment Syndrome exam of affected extremity: is normal. Joints: All joints are normal except the right hip displays Weight bearing: is unable to bear weight, DVT Exam: negative Homans' sign noted on exam, no appreciated bluish discoloration, no erythema, no increased warmth, pain, swelling, tenderness. 10:19 ECG was reviewed by the Attending Physician. [facility] Vital Signs: 08:33 Resp 16; Weight 88.45 kg; Height 5 ft. 9 in. (175.26 cm); Pain 8/10; ss 09:00 BP 105 / 53; Pulse 57; Resp 16; Pulse Ox 100% on R/A; Pain 8/10; kj1 09:29 Temp 98.2; ss 11:22 BP 137 / 66; Pulse 59; Resp 16; Pulse Ox 96% ; ll1 12:07 BP 137 / 66; Pulse 61; Resp 15; ll1 08:33 Body Mass Index 28.80 (88.45 kg, 175.26 cm) MDM: 08:31 Patient medically screened. maria de jesus 09:34 Differential diagnosis: hip fracture, intertrochanteric fracture, femoral neck maria de jesus fracture, femoral shaft fracture. Data reviewed: vital signs, nurses notes, EMS record, lab test result(s), EKG, radiologic studies, plain films. Data interpreted: residential monitor: rate is 57 beats/min, rhythm is regular, Pulse oximetry: on room air is 100 %. Test interpretation: by ED physician or midlevel provider: ECG, plain radiologic studies. Counseling: I had a detailed discussion with the patient and/or guardian regarding: the historical points, exam findings, and any diagnostic results supporting the discharge/admit diagnosis, radiology results, the need to transfer to another facility, for higher level of care, [facility] does not immediately have the required specialist. 02/08 08:34 Order name: Basic Metabolic Panel; Complete Time: 10:19 [facility] 02/08 08:34 Order name: CBC with Diff; Complete Time: 10:19 [facility] 02/08 08:34 Order name: LFT's; Complete Time: 10:19 [facility] 02/08 08:34 Order name: Magnesium; Complete Time: 10:19 [facility] 02/08 08:34 Order name: NT PRO-BNP; Complete Time: 10:19 [facility] 02/08 08:34 Order name: PT-INR; Complete Time: 10:19 [facility] 02/08 08:34 Order name: Troponin HS; Complete Time: 10:19 [facility] 02/08 08:34 Order name: XRAY Chest (1 view); Complete Time: 10:19 [facility] 02/08 08:34 Order name: SARS-COV-2 RT PCR (Document "Date of Onset" if Symptomatic) 02/08 08:34 Order name: Pelvis XRAY; Complete Time: 10:19 [facility] 02/08 08:34 Order name: Hip Right 2 View XRAY; Complete Time: 10:19 [facility] 02/08 08:34 Order name: Femur Right XRAY; Complete Time: 10:19 [facility] 02/08 08:34 Order name: EKG; Complete Time: 08:35 [facility] 02/08 08:34 Order name: Cardiac monitoring; Complete Time: 09:20 [facility] 02/08 08:34 Order name: EKG - Nurse/Tech; Complete Time: 09:21 [facility] 02/08 08:34 Order name: IV Saline Lock; Complete Time: 09:21 [facility] 02/08 08:34 Order name: Labs collected and sent; Complete Time: 09:21 [facility] 02/08 08:34 Order name: O2 Per Protocol; Complete Time: 09:21 [facility] 02/08 08:34 Order name: O2 Sat Monitoring; Complete Time: 09:44 [facility] 02/08 08:34 Order name: Urine Dipstick-Ancillary (obtain specimen) 02/08 09:42 Order name: Splint - Posterior Leg; Complete Time: 11:43 [facility] EC:19 Rate is 57 beats/min. Rhythm is regular. QRS [place] is Normal. MO interval is normal. QRS maria de jesus interval is normal. QT interval is normal. No Q waves. T waves are Normal. No ST changes noted. Clinical impression: Sinus bradycardia and No evidence of ischemia. Interpreted by me. Reviewed by me. Administered Medications: 08:50 Drug: Zofran (Ondansetron) 4 mg Route: IVP; Site: right antecubital; ll1 10:36 Follow up: Response: No adverse reaction ss 11:42 Follow up: Response: No adverse reaction 1 08:50 Drug: Dilaudid (HYDROmorphone) 1 mg Route: IVP; Site: right antecubital; ll1 10:36 Follow up: Response: No adverse reaction; Pain is decreased ss 11:42 Follow up: Response: No adverse reaction; Pain is decreased; RASS: Alert and Calm (0) 1 09:29 CANCELLED (Patient Refused): morphine 4 mg IVP once; RASS on ADMIN: Combtv4, Very ll1 Agttd3, Agttd2, Rstlss1, AlertClm0, Drwsy-1, Lt Sdtn-2, Mod Sdtn-3, Dp Sdtn-4, UnArsble-5 11:59 Drug: Dilaudid (HYDROmorphone) 1 mg {Note: rass 0, pain 10/10.} Route: IVP; Site: right ll1 antecubital; 12:10 Follow up: Response: No adverse reaction; Pain is decreased; RASS: Alert and Calm (0) 1 Disposition Summary: 02/08/22 09:39 Transfer Ordered Transfer Location: [facility] maria de jesus Reason: Higher level of care maria de jesus Condition: Fair maria de jesus Problem: new maria de jesus Symptoms: have improved maria de jesus Accepting Physician: TO [facility](02/08/22 12:27) ll1 Diagnosis - Fall on same level, unspecified maria de jesus - Displaced fracture of base of neck of right femur - periprosthetic maria de jesus Forms: - Medication Reconciliation Form maria de jesus - SBAR form maria de jesus Signatures: Dispatcher [employer] EDSuraj Jones MD MD cha Smirch, Shelby, RN RN ss Elma Tovar RN RN ll1 Corrections: (The following items were deleted from the chart) 09:29 08:34 morphine 4 mg IVP once; RASS on ADMIN: Combtv4, Very Agttd3, Agttd2, Rstlss1, ll1 AlertClm0, Drwsy-1, Lt Sdtn-2, Mod Sdtn-3, Dp Sdtn-4, UnArsble-5 ordered. [facility] 09:29 morphine 4 mg IVP once; RASS on ADMIN: Combtv4, Very Agttd3, Agttd2, Rstlss1, ll1 AlertClm0, Drwsy-1, Lt Sdtn-2, Mod Sdtn-3, Dp Sdtn-4, UnArsble-5 given. [facility] 09:29 morphine 4 mg IVP once; RASS on ADMIN: Combtv4, Very Agttd3, Agttd2, Rstlss1, ll1 AlertClm0, Drwsy-1, Lt Sdtn-2, Mod Sdtn-3, Dp Sdtn-4, UnArsble-5 ordered. [facility] 09:39 TO [place] [id number]
--- NOTE | 2022-02-08 09:40 | ER ---
Nurse's Notes [facility] Name: Sergey Emanuel Jr Age: 61 yrs Sex: Male : 1960 Arrival Date: 02/08/2022 Time: 08:29 Bed 13 Private MD: Diagnosis: Fall on same level, unspecified;Displaced fracture of base of neck of right femur-periprosthetic Presentation: 02/08 08:33 Chief complaint: Patient states: R hip/ thigh pain that began after a fall yesterday ss morning. Pt reports at midnight when he got into bed that the pain became much worse suddenly. Coronavirus screen: Client denies travel out of the [place] in the last 14 days. Ebola Screen: Patient denies exposure to infectious person. Patient denies travel to an Ebola-affected area in the 21 days before illness onset. Initial Sepsis Screen: Does the patient meet any 2 criteria? No. Patient's initial sepsis screen is negative. Does the patient have a suspected source of infection? No. Patient's initial sepsis screen is negative. Risk Assessment: Do you want to hurt yourself or someone else? Patient reports no desire to harm self or others. Onset of symptoms was February 07, 2022. 08:33 Method Of Arrival: EMS: [facility] 08:33 Acuity: MARYA 3 ss Triage Assessment: 11:47 General: Appears uncomfortable, Behavior is cooperative, appropriate for age. Pain: ll1 Complains of pain in right upper thigh. Historical: - Allergies: 08:36 Brilinta; ss - PMHx: 08:36 CHF; IRON DEFICIENCY ANEMIA; Myocardial infarction; x 4; ss - PSHx: 08:36 triple bypass; ss - Immunization history:: Client reports having NOT received the Covid vaccine. - Social history:: Smoking status: Patient denies any tobacco usage or history of. - Family history:: not pertinent. Screenin:22 Abuse screen: Denies threats or abuse. Nutritional screening: No deficits noted. ll1 Tuberculosis screening: No symptoms or risk factors identified. Fall Risk Fall in past 12 months (25 points). IV access (20 points). Gait- Impaired (20 pts.). Total Hernandes Fall Scale indicates High Risk Score (45 or more points). Fall prevention measures have been instituted. Side Rails Up X 2 Placed Close to Nursing Station Frequent Obs/Assessments Occuring Family Present and informed to notify staff if the need to leave the bedside As available patient and family educated on Fall Prevention Program and Strategies. Assessment: 08:29 General: Appears uncomfortable, Behavior is calm, cooperative, Denies fever, feeling ss ill, fatigue, chills. Pain: Complains of pain in right upper thigh and right hip Pain currently is 8 out of 10 on a pain scale. Quality of pain is described as aching, tender. Neuro: Allison Agitation-Sedation Scale (RASS): 0 - Alert and Calm Level of Consciousness is awake, alert, obeys commands, Oriented to person, place, time, situation. Cardiovascular: Capillary refill < 3 seconds is brisk in bilateral fingers. Respiratory: Airway is patent Respiratory effort is even, unlabored, Respiratory pattern is regular, symmetrical. EENT: Nares are clear Oral mucosa is moist. Derm: Skin is intact, is healthy with good turgor, Skin is dry, Skin is pink, warm \\T\\ dry. normal. Musculoskeletal: Circulation, motion, and sensation intact. Range of motion: intact in all extremities, Swelling absent. 11:22 Reassessment: No changes from previously documented assessment. Patient and/or family ll1 updated on plan of care and expected duration. Pain level reassessed. Patient is alert, oriented x 3, equal unlabored respirations, skin warm/dry/pink. 12:09 Reassessment: No changes from previously documented assessment. Patient and/or family ll1 updated on plan of care and expected duration. Pain level reassessed. Patient is alert, oriented x 3, equal unlabored respirations, skin warm/dry/pink. Vital Signs: 08:33 Resp 16; Weight 88.45 kg; Height 5 ft. 9 in. (175.26 cm); Pain 8/10; ss 09:00 BP 105 / 53; Pulse 57; Resp 16; Pulse Ox 100% on R/A; Pain 8/10; kj1 09:29 Temp 98.2; ss 11:22 BP 137 / 66; Pulse 59; Resp 16; Pulse Ox 96% ; ll1 12:07 BP 137 / 66; Pulse 61; Resp 15; ll1 08:33 Body Mass Index 28.80 (88.45 kg, 175.26 cm) ED Course: 08:29 Patient arrived in ED. eb 08:31 Suraj Harden MD is Attending Physician. maria de jesus 08:36 Triage completed. ss 08:36 Arm band placed on right wrist. ss 09:20 SARS-COV-2 RT PCR (Document "Date of Onset" if Symptomatic) Sent. kj1 09:29 Rehana Rocha, RN is Primary Nurse. ss 09:29 initiated a transfer with Martina Bishop Rn from the [facility]. eb 09:[address] Arora the orthopedic bone process operator consulted by Dr. Harden/ advised to transfer eb for higher level of care. 09:42 XRAY Chest (1 view) In Process Unspecified. EDMS 09:42 Pelvis XRAY In Process Unspecified. EDMS 09:42 Hip Right 2 View XRAY In Process Unspecified. EDMS 09:42 Femur Right XRAY In Process Unspecified. EDMS 09:49 EKG done, by ED staff, reviewed by Suraj Harden MD. mb7 10:[address] Boogie the orthopedic bone process operator for [facility] with Dr nika Harden for patient transfer consultation. 10:[address] Boogie the hip orthopedic is out of town and [facility] will have to decline eb the patient in transfer. 10:[address] [facility] is at capacity and they will have to decline the patient in eb transfer/. 10:57 initiated a transfer with Adrián Xiong Rn/ from the [facility]. eb 11:[address] Barros the trauma doc bone process operator for [facility] with Dr. nika Harden for patient transfer consultation. 11:22 administrative approval given by Adrián Xiong/ patient has been accepted to [facility] ER/ Dr. Barros has accepted the patient in transfer/ report to be called to [phone]. 11:23 Patient has correct armband on for positive identification. Bed in low position. Call ll1 light in reach. Side rails up X 1. Client placed on continuous cardiac and pulse oximetry monitoring. NIBP monitoring applied. 11:48 Assist provider with fracture care. Patient transferred, IV remains in place. ll1 Administered Medications: 08:50 Drug: Zofran (Ondansetron) 4 mg Route: IVP; Site: right antecubital; ll1 10:36 Follow up: Response: No adverse reaction 11:42 Follow up: Response: No adverse reaction 1 08:50 Drug: Dilaudid (HYDROmorphone) 1 mg Route: IVP; Site: right antecubital; ll1 10:36 Follow up: Response: No adverse reaction; Pain is decreased ss 11:42 Follow up: Response: No adverse reaction; Pain is decreased; RASS: Alert and Calm (0) 1 09:29 CANCELLED (Patient Refused): morphine 4 mg IVP once; RASS on ADMIN: Combtv4, Very ll1 Agttd3, Agttd2, Rstlss1, AlertClm0, Drwsy-1, Lt Sdtn-2, Mod Sdtn-3, Dp Sdtn-4, UnArsble-5 11:59 Drug: Dilaudid (HYDROmorphone) 1 mg {Note: rass 0, pain 10/10.} Route: IVP; Site: right ll1 antecubital; 12:10 Follow up: Response: No adverse reaction; Pain is decreased; RASS: Alert and Calm (0) 1 Outcome: 09:39 ER care complete, transfer ordered by MD. pretty 11:47 Transferred by ground EMS to [facility], Transfer form completed. X-rays sent ll1 w/ patient. Note: report given to Gilberto Galo RN at [facility]. 11:47 Condition: stable 11:47 Instructed on the need for transfer. 12:27 Patient left the ED. 1 Signatures: Dispatcher [employer] EDSuraj Jones MD MD cha Smirch, Shelby RN RN Dee Rodriguez Kandis kj1 Elma Tovar RN RN 1 Dottie Coyne mb7 Corrections: (The following items were deleted from the chart) 09:29 08:50 morphine 4 mg IVP in right antecubital 1 1 11:50 11:19 adrián from transfer center called to initiate to dr. nika maher 11:51 11:22 ADRIÁN ADMIN APPROVAL \\T\\[id number] FAXED OVER MOT \\T\\ FACE SHEET eb eb
--- NOTE | 2022-02-08 09:54 | RAD REPORT ---
EXAM DESCRIPTION: RAD - Femur Right - 02/08/2022 9:40 am CLINICAL HISTORY: PAIN COMPARISON: Femur Right dated 01/12/2021; Hip Right 2 View dated 02/08/2022; Pelvis dated 02/08/2022 FINDINGS: Intramedullary kyle intact. Healed distal femur fracture. Right knee arthroplasty. IMPRESSION: The mid and distal femur is without fracture. Reference right hip radiograph for right i ntertrochanteric hip fracture.
--- NOTE | 2022-02-08 09:55 | RAD REPORT ---
EXAM DESCRIPTION: RAD - Hip Right 2 View - 02/08/2022 9:40 am CLINICAL HISTORY: PAIN COMPARISON: No comparisons FINDINGS/IMPRESSION: Right sided intertrochanteric hip fracture which is displaced. The fracture ext ends to the proximal aspect of the intramedullary kyle. No dislocation.
--- NOTE | 2022-02-08 09:55 | RAD REPORT ---
EXAM DESCRIPTION: RAD - Pelvis - 02/08/2022 9:40 am CLINICAL HISTORY: PAIN COMPARISON: No comparisons FINDINGS/IMPRESSION: Right-sided intertrochanteric hip fracture. Left hip is not well evaluated due to positioning. If there is concern for left hip fracture, recommend dedicated radiographs. No pelvic fracture is seen. Fusion hardware in the lower spine.
--- NOTE | 2022-02-08 09:56 | RAD REPORT ---
EXAM DESCRIPTION: RAD - Chest Single View - 02/08/2022 9:40 am CLINICAL HISTORY: COUGH COMPARISON: Chest Single View dated 01/03/2022; Chest Single View dated 07/08/2021; Chest Pa And Lat (2 Views) dated 09/21/2020; Chest Single View dated 08/12/2020 FINDINGS: Lines: None. Lungs: No evidence of edema or pneumonia. Pleural: No significant pleural effusions or pneumothorax. Cardiac: The heart size is within normal limits. Bones: No acute fractures. Sternotomy. Other: IMPRESSION: No acute cardiopulmonary disease.
[2022-02-08 12:40] VITALS: TEMP 98.2
[2022-02-08 12:41] VITALS: BP 137/66; O2SAT 96
--- NOTE | 2022-02-10 09:01 | EKG ---
Test Date: 2022-02-08 Test Time: 09:43:49 Lead Massage Therapist: JONATAN MEASUREMENT RESULTS: Intervals: Rate: 57 [place]: 200 QRSD: 100 QT: 470 QTc: 457 [place]: P: 34 NJ: 200 QRS: -1 T: 33 INTERPRETIVE STATEMENTS: Sinus bradycardia Nonspecific ST abnormality Abnormal ECG Compared to ECG 01/03/2022 23:08:22 ST (T wave) deviation now present Left-axis deviation no longer present Incomplete right bundle-branch block no longer present Electronically Signed On 02-10-22 08:57:03 CDT by Ernst Hewitt
== END 2022-02-08 12:27 | disposition short-term general hospital (02) ==
LOC: ER 08:19
PROC: 2W3LX1Z Immobilization of Right Lower Extremity using Splint (ICD-10-PCS; principal; 2022-02-08)
DX: S72.041A Displaced fracture of base of neck of right femur, initial encounter for closed fracture (principal); W18.30XA Fall on same level, unspecified, initial encounter; Z20.822 Contact with and (suspected) exposure to COVID-19; Z88.8 Allergy status to other drugs, medicaments and biological substances; Z95.1 Presence of aortocoronary bypass graft; I50.9 Heart failure, unspecified; I25.2 Old myocardial infarction
CPT/HCPCS: 93005; 85025; 80048; 36415; 83735; 85610; 80076; 84484; 83880; 71045; 72170; 73502; 73552; 96375; 96374; 99285; 29505; U0003; J1170 ×2; J2405